=== PATIENT | female | born 1970 | race Two or more races ===

== ENCOUNTER 2016-08-10 05:19 | Inpatient (IN) | payer MEDICAID, OTHER ==
[2016-08-10 06:08] LABS: ABSOLUTE BASOPHILS # (AUTO) 0.1 10^3/uL (0.0-0.2); ABSOLUTE EOSINOPHILS # (AUTO) 0.2 10^3/uL (0.0-0.6); ABSOLUTE LYMPHOCYTES (AUTO) 3.4 10^3/uL (0.5-4.7); ABSOLUTE MONOCYTES (AUTO) 0.6 10^3/uL (0.1-1.4); ABSOLUTE NEUT (AUTO) 9.9 10^3/uL (1.7-8.2); BASOPHILS % (AUTO) 0.7 % (0-2); EOSINOPHILS % (AUTO) 1.1 % (0-6); HEMATOCRIT 35.2 % (36.0-47.0); HEMOGLOBIN 11.3 g/dL (12.0-15.5); HGB HCT DIFFERENCE -1.3; MEAN CORPUSCULAR HEMOGLOBIN 26.2 pg (27.0-33.4); MEAN CORPUSCULAR HGB CONC 32.1 g/dL (32.0-36.0); MEAN CORPUSCULAR VOLUME 82 fl (80-97); MONOCYTES % (AUTO) 4.3 % (3-13); RED BLOOD COUNT 4.32 10^6/uL (3.72-5.28); RED CELL DISTRIBUTION WIDTH 14.8 % (11.5-14.0); SEGMENTED NEUTROPHILS % (AUTO) 69.9 % (42-78); WHITE BLOOD COUNT 14.2 10^3/uL (4.0-10.5)
[2016-08-10] MEDS ORDERED: FUROSEMIDE INJ/PF 40 MG/4 ML SDV IV ONE (06:15)
[2016-08-10] MEDS ORDERED: NITROGLYCERIN/D5W 250 ML IV PRN ×2 (06:15→08:41)
[2016-08-10 06:21] LABS: ALANINE AMINOTRANSFERASE 85 U/L (9-52); ALKALINE PHOSPHATASE 119 U/L (38-126); ANION GAP 12 (5-19); ASPARTATE AMINO TRANSFERASE 78 U/L (14-36); BILIRUBIN,TOTAL 0.8 mg/dL (0.2-1.3); BLOOD UREA NITROGEN 13 mg/dL (7-20); CARBON DIOXIDE 20 mmol/L (22-30); CHLORIDE 101 mmol/L (98-107); CREATINE KINASE 69 U/L (30-135); CREATININE RESULT 0.57 mg/dL (0.52-1.25); GLUCOSE 379 mg/dL (75-110); POTASSIUM 4.1 mmol/L (3.6-5.0); SODIUM 132.6 mmol/L (137-145); TOTAL PROTEIN 6.6 g/dL (6.3-8.2)
[2016-08-10 06:28] LABS: PROTHROMBIN TIME 13.1 SEC (11.4-15.4)
[2016-08-10 06:29] LABS: PARTIAL THROMBOPLASTIN TIME 23.9 SEC (23.5-35.8)
[2016-08-10 06:33] LABS: CREATINE KINASE MB 0.49 ng/mL (<4.55)
[2016-08-10 06:48] LABS: TROPONIN I 0.073 ng/mL
[2016-08-10] MEDS ORDERED: AMLODIPINE BESYLATE 10 MG TABLET PO ONE (07:46)
[2016-08-10 08:02] LABS: APPEARANCE,URINE CLEAR; BILIRUBIN,URINE NEGATIVE (NEGATIVE); KETONES,URINE NEGATIVE (NEGATIVE); LEUKOCYTE ESTERASE,URINE TRACE (NEGATIVE); NITRITE,URINE NEGATIVE (NEGATIVE); PROTEIN,URINE 30 mg/dL (NEGATIVE); UROBILINOGEN,URINE NEGATIVE mg/dL (<2.0)
[2016-08-10 08:03] LABS: GLUCOSE, URINE >=1000 mg/dL (NEGATIVE)
[2016-08-10 08:04] LABS: URINE SPECIFIC GRAVITY 1.017
[2016-08-10] MEDS ORDERED: DEXTROSE 50%-WATER 25 GM/50 ML DISP.SYRIN IV PRN ×2 (08:46)
[2016-08-10] MEDS ORDERED: DEXTROSE 40% GEL 15 GM TUBE PO PRN ×2 (08:46)
[2016-08-10] MEDS ORDERED: GLUCAGON,HUMAN RECOMB 1 MG INJ IM PRN (08:46)
[2016-08-10] MEDS: FAMOTIDINE 20 MG TABLET PO SCH ×2 (09:43→21:15)
[2016-08-10] MEDS: ASPIRIN 81 MG TABLET, ENT COATED PO SCH (09:43)
[2016-08-10] MEDS: LISINOPRIL 10 MG TABLET PO SCH (09:44)
--- NOTE | 2016-08-10 11:09 | EKG REPORT ---
SEVERITY:- ABNORMAL ECG - SINUS TACHYCARDIA PROBABLE LEFT VENTRICULAR HYPERTROPHY BORDERLINE T ABNORMALITIES, INFERIOR LEADS BORDERLINE PROLONGED QT INTERVAL : Confirmed by: Marin Pulido MD 10-Aug-2016 11:07:52
[2016-08-10] MEDS: INSULIN LISPRO 100 UNIT/ML 3 ML VIAL SUBCUT PRN ×3 (12:19→21:16)
[2016-08-10] MEDS ORDERED: INFLUENZA ADLT QUAD (36MOS+) 2016-17 VAC 0.5 ML SYR IM PRN (13:22)
--- NOTE | 2016-08-10 14:46 | PDOC CONSULTATION ---
Consultation Consult Date: 08/10/16 Attending physician:: MAIKOL ZIMMERMAN Consult reason:: Shortness of breath History of Present Illness Admission Date/PCP: 08/10/16 08:41 Patient complains of: Shortness of breath History of Present Illness: PHILLIP DORANTES is a 46 year old female, who presents with several weeks history of increasing shortness of breath, fatigue and tiredness. Patient claims significant history of waking up short of breath, orthopnea and also shortness of breath on minimal exertion. This has gradually gotten worse. Patient describes a history of congestive heart failure. Patient claims that she was being followed at the congestive heart failure clinic advised and but had no follow-up recently. Patient also has been somewhat noncompliant to medication. However she claims that she has now gotten insurance and would be more compliant. Patient denied any sustained palpitations, syncope, near syncope. She has noted some increased abdominal bloating and some pedal edema. Patient gives history of snoring, multiple nocturnal awakening, daytime fatigue and somnolence. Past Medical History Cardiac Medical History: Reports: Congestive Heart Failure, Hypertension, Heart Murmur Endocrine Medical History: Reports: Diabetes Mellitus Type 2 Past Surgical History Past Surgical History: Reports: Cardiac Catheterization Social History Information Source: Patient Smoking Status: Never Smoker Frequency of Alcohol Use: None Hx Recreational Drug Use: No Drugs: None Hx Prescription Drug Abuse: No Family History Family History: Reviewed & Not Pertinent Parental Family History Reviewed: Yes Children Family History Reviewed: Yes Sibling(s) Family History Reviewed.: Yes Medication/Allergy Home Medications: Amlodipine Besylate [Norvasc 10 mg Tablet] 10 mg PO DAILY 08/10/16 Carvedilol [Coreg 12.5 mg Tablet] 12.5 mg PO Q12 08/10/16 Lisinopril [Prinivil] 20 mg PO DAILY 08/10/16 Metformin HCl [Glucophage] 500 mg PO BIDACBS 08/10/16 Sitagliptin Phosphate [Januvia 50 mg Tablet] 100 mg PO DAILY 08/10/16 Allergies/Adverse Reactions: No Known Allergies Allergy (Verified 01/15/15 20:34) Review of Systems Review of Systems: Please see history of present illness and past medical history as wall. Constitutional: No fever or chills reported. Head : No recent chronic headaches, recent head injury. Eyes: No recent eye pain, diplopia, redness, discharge, acute visual changes. Ears: No recent chronic ear pain, acute hearing loss, ear discharge. Oral cavity: No recent ulcerations, bleeding, oral cavity discomfort. Neck: No recent acute neck pain reported. Hematologic: No recent easy bruising or bleeding or hematologic malignancy reported. Lymphatic: No recent lymphatic malignancy, chronic lymphadenopathy reported yet Cardiovascular system review: See history of present illness. No sustained palpitations, recent syncope or near syncope. Respiratory system review: No recent chronic cough, hemoptysis, blood clots in the lungs reported. Mild Shortness of breath on exertion Gastrointestinal system review: Negative for any recent acute or chronic abdominal pain, hematemesis, melena, recent change in bowel habits. Genitourinary system review: No recent acute or chronic hematuria, flank pain, UTI etc. reported. Skin system review: Negative for any recent abnormal bruising, no rash, no pruritus reported. Neurologic: No prior history of strokes, mini strokes, seizure disorder. Psychologic: No history of major psychosis or depression reported. Musculoskeletal: Minor aches and pains reported. No acute joint swelling reported. Endocrine: No recent polyuria, polydipsia, recent heat or cold intolerance. Physical Exam Vital Signs: Temp Pulse Resp BP Pulse Ox 97.8 F 92 16 167/93 H 100 08/10/16 13:17 08/10/16 13:17 08/10/16 13:17 08/10/16 13:17 08/10/16 13:17 Intake & Output 08/09/16 08/10/16 08/11/16 06:59 06:59 06:59 Weight 95.9 kg Exam: GENERAL: well-nourished and in no acute distress. Alert and oriented x3 HEAD: Atraumatic, normocephalic. EYES: Pupils equal round and reactive to light, extraocular movements intact, sclera anicteric, conjunctiva are normal. ENT: TMs normal, nares patent, oropharynx clear without exudates. Moist mucous membranes. No oral ulcerations or bleeding gums noted NECK: supple without lymphadenopathy. Trachea is central. No cervical or axillary lymphadenopathy noted. Carotids are 2+, JVD 12-14 CM LUNGS: Respiration seems nonlabored, no significant accessory muscle action noted. Bibasal a fine crackles and few bibasal wheezes rales or rhonchi noted. No significant dullness noted on percussion. CHEST: Palpation of the chest wall shows no significant chest wall tenderness. No other significant abnormalities noted. HEART: [place] [employer], No PSH, 1/6 SAMARIA aortic area, 1/6 ferrara systolic murmur mitral area, no rubs, no gallops. ABDOMEN: Soft, no significant tenderness appreciated, normoactive bowel sounds. No guarding, no rebound. No rigidity noted . No masses appreciated. EXTREMITIES: Pedal pulses are 1-2+, no calf tenderness noted. No clubbing or cyanosis.1-2 + pedal edema noted NEUROLOGICAL: Focused neurological exam showed no significant neurologic deficit. Normal speech, no focal weakness appreciated. PSYCH: Normal mood, normal affect. Judgment and insight within normal limits. SKIN: No significant ecchymosis, rash, ulcerations or signs of pruritus noted. MUSCULOSKELETAL EXAM: No significant joint swelling noted. Results EKG Comments: Sinus rhythm, with LVH and secondary ST-T wave changes Impressions: Chest X-Ray 08/10/16 05:49 IMPRESSION: Borderline cardiomegaly. No pulmonary vascular congestion. No focal opacities. Assessment & Plan - Diagnosis (1) Congestive heart failure Qualifiers: Congestive heart failure type: combined Congestive heart failure chronicity: acute on chronic Qualified Code(s): I50.43 - Acute on chronic combined systolic (congestive) and diastolic (congestive) heart failure Is this a current diagnosis for this admission?: Yes (2) Cardiomyopathy Qualifiers: Cardiomyopathy type: unspecified Qualified Code(s): I42.9 - Cardiomyopathy, unspecified Is this a current diagnosis for this admission?: Yes (3) Diabetes type 2, uncontrolled Qualifiers: Diabetes mellitus complication status: with unspecified complications 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 Patient also noted to be volume overloaded. Agree with IV diuretic therapy. Recommend adding carvedilol and gradually optimizing VI inhibitor dose. We will also recommend adding digoxin. Cardiomyopathy: We will optimize therapy for underlying cardiomyopathy. A 2-D echo being ordered. Diabetes: Currently uncontrolled. Glycohemoglobin is high. Recommend good control of blood sugar but avoid hypoglycemia. Hypertension:Hypertension: Reasonably well controlled. Blood pressure goal in this patient is 130/80 or less. This was discussed with the patient. Currently blood pressure under reasonable control. Better medication for this patient are VI inhibitor/ARB/beta tri etc. discussed side effects of uncontrolled hypertension and also severe hypotension. Sleep disordered breathing: Patient may have underlying sleep apnea. This may need to be evaluated as an outpatient. - Time Time Spent: 30 to 50 Minutes - CODE STATUS was discussed, patient remains full code. Surrogate decision-maker unchanged. Multiple medical problems were addressed.More than 50% of the time spent coordinating care, discussing management plans with involved caregivers. Management plans discussed with involved personnels. Medical decision making was of moderate complexity. Medications reviewed and adjusted accordingly: Yes
[2016-08-10] MEDS: FUROSEMIDE INJ/PF 40 MG/4 ML SDV IV SCH ×2 (14:51→21:16)
[2016-08-10] MEDS: HEPARIN SOD (PORCINE) 5,000 UNIT/ML 1 ML SYRINGE SUBCUT SCH ×2 (14:53→21:16)
--- NOTE | 2016-08-10 14:53 | ER Document Report ---
ED General - General Chief Complaint: Breathing Difficulty Stated Complaint: DIFFICULTY BREATHING TRAVEL OUTSIDE OF THE [place] IN LAST 30 DAYS: No - HPI Patient complains to provider of: difficulty in breathing Notes: Patient has a history of CHF, hypertension with multiple dilated defects diabetes hypertension coming in for shortness of breath. Patient states also insurance probably 2 months ago. Patient that she has not been consistent upon arrival patient was severely tachycardic hypertensive and tachypnea. Upon evaluation patient patient had approximately 5 word dyspnea. Patient denies any pain. Patient states proximal 8 pound weight gain over the last few days. No recent travel no fevers no chills no nausea no vomiting. - Related Data Allergies/Adverse Reactions: No Known Allergies Allergy (Verified 01/15/15 20:34) Home Medications: Current Home Medications Amlodipine Besylate [Norvasc 10 mg Tablet] 10 mg PO DAILY 08/10/16 [History] Carvedilol [Coreg 12.5 mg Tablet] 12.5 mg PO Q12 08/10/16 [History] Lisinopril [Prinivil] 20 mg PO DAILY 08/10/16 [History] Metformin HCl [Glucophage] 500 mg PO BIDACBS 08/10/16 [History] Sitagliptin Phosphate [Januvia 50 mg Tablet] 100 mg PO DAILY 08/10/16 [History] Past Medical History - Social History Smoking Status: Never Smoker Chew tobacco use (# tins/day): No Frequency of alcohol use: None Drug Abuse: None Family History: Reviewed & Not Pertinent Patient has suicidal ideation: No Patient has homicidal ideation: No - Past Medical History Cardiac Medical History: Reports: Hx Congestive Heart Failure, Hx Hypertension, Hx Heart Murmur Endocrine Medical History: Reports: Hx Diabetes Mellitus Type 2 Renal/ Medical History: Denies: Hx Peritoneal Dialysis Past Surgical History: Reports: Hx Cardiac Catheterization - Immunizations Hx Diphtheria, Pertussis, Tetanus Vaccination: Yes Review of Systems - Review of Systems Constitutional: No symptoms reported EENT: No symptoms reported Cardiovascular: No symptoms reported Respiratory: Short of breath Gastrointestinal: No symptoms reported Genitourinary: No symptoms reported Female Genitourinary: No symptoms reported Musculoskeletal: No symptoms reported Skin: No symptoms reported Hematologic/Lymphatic: No symptoms reported Neurological/Psychological: No symptoms reported -: Yes All other systems reviewed and negative Physical Exam - Vital signs Vitals: Temp Pulse Resp BP Pulse Ox 97.4 F 124 H 28 H 220/140 H 98 08/10/16 05:32 08/10/16 05:32 08/10/16 05:32 08/10/16 05:32 08/10/16 05:32 Interpretation: Normal - General General appearance: Alert, Other - Mild to moderate distress In distress: Mild - HEENT Head: Normocephalic, Atraumatic Eyes: Normal Pupils: PERRL - Respiratory Respiratory status: Respiratory distress - [id number], Tachypnea Chest status: Nontender Breath sounds: Rales Chest palpation: Normal - Cardiovascular Rhythm: Tachycardia Heart sounds: Normal auscultation Murmur: No - Abdominal Inspection: Normal Distension: No distension Bowel sounds: Normal Tenderness: Nontender Organomegaly: No organomegaly - Back Back: Normal, Nontender - Extremities General upper extremity: Normal inspection, Nontender, Normal color, Normal ROM , Normal temperature General lower extremity: Normal inspection, Nontender, Normal color, Normal ROM , Normal temperature, Normal weight bearing. No: Bernard's sign - Neurological Neuro grossly intact: Yes Cognition: Normal Orientation: AAOx4 [place] Coma Scale Eye Opening: Spontaneous [place] Coma Scale Verbal: Oriented [place] Coma Scale Motor: Obeys Commands [place] Coma Scale Total: 15 Speech: Normal Motor strength normal: LUE, RUE, LLE, RLE Sensory: Normal - Psychological Associated symptoms: Normal affect, Normal mood - Skin Skin Temperature: Warm Skin Moisture: Dry Skin Color: Normal Course - Re-evaluation Re-evalutation: 08/10/16 14:51 Patient presents with soreness of breath. Initial examinations consistent with CHF fluid overload. Patient was transitioned to BiPAP nitro drip given Lasix given. Patient's symptoms improved. Patient was able to be titrated off of BiPAP. Patient continued. Patient's case was turned over to the hospital for further management - Vital Signs Vital signs: Temp Pulse Resp BP Pulse Ox 97.8 F 93 16 167/93 H 100 08/10/16 13:17 08/10/16 14:00 08/10/16 13:17 08/10/16 13:17 08/10/16 13:17 - Laboratory Result Diagrams: 08/10/16 05:53 08/10/16 05:53 Laboratory results interpreted by me: 08/10/16 08/10/16 08/10/16 05:53 05:53 05:53 WBC 14.2 H Hgb 11.3 L Hct 35.2 L MCH 26.2 L RDW 14.8 H Absolute Neutrophils 9.9 H Sodium 132.6 L Carbon Dioxide 20 L Glucose 379 H Hemoglobin A1c % AST 78 H ALT 85 H NT-Pro-B Natriuret Pep 6310 H Albumin 3.0 L Urine Protein Urine Glucose (UA) Ur Leukocyte Esterase 08/10/16 08/10/16 05:53 06:47 WBC Hgb Hct MCH RDW Absolute Neutrophils Sodium Carbon Dioxide Glucose Hemoglobin A1c % 11.3 H AST ALT NT-Pro-B Natriuret Pep Albumin Urine Protein 30 H Urine Glucose (UA) >=1000 H Ur Leukocyte Esterase TRACE H Critical Care Note - Critical Care Note Total time excluding time spent on procedures (mins): 35 Comments: Multiple evaluations patient with respiratory distress crying BiPAP hypertensive emergency urgency Discharge - Discharge Clinical Impression: Hypertensive urgency, Respiratory distress Cardiomyopathy Qualifiers: Cardiomyopathy type: unspecified Qualified Code(s): I42.9 - Cardiomyopathy, unspecified Congestive heart failure Qualifiers: Congestive heart failure type: combined Congestive heart failure chronicity: acute on chronic Qualified Code(s): I50.43 - Acute on chronic combined systolic (congestive) and diastolic (congestive) heart failure Diabetes type 2, uncontrolled Qualifiers: Diabetes mellitus complication status: with unspecified complications 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
[2016-08-10] MEDS ORDERED: DIGOXIN 0.125 MG TABLET PO ONE (15:15)
[2016-08-10] MEDS ORDERED: HYDRALAZINE HCL INJ/PF 20 MG/1 ML SDV IV PRN (16:49)
--- NOTE | 2016-08-10 16:49 | PDOC H&P ---
History of Present Illness Admission Date/PCP: 08/10/16 08:41 Not Established Patient complains of: Dyspnea History of Present Illness: Patient has a history of CHF, hypertension with multiple dilated defects diabetes hypertension coming in for shortness of breath. Patient states also insurance probably 2 months ago. Patient that she has not been consistent upon arrival patient was severely tachycardic hypertensive and tachypnea. Upon evaluation patient patient had approximately 5 word dyspnea. Patient denies any pain. Patient states proximal 8 pound weight gain over the last few days. No recent travel no fevers no chills no nausea no vomiting. The patient has been seen in the past by [facility]. The patient was found to be in hypertensive emergency and started on nitro drip. Patient was referred to the hospitalist remission and management. Past Medical History Cardiac Medical History: Reports: Congestive Heart Failure, Hypertension, Heart Murmur Endocrine Medical History: Reports: Diabetes Mellitus Type 2 Past Surgical History Past Surgical History: Reports: Cardiac Catheterization Social History Information Source: Patient Occupation: Is employed full-time at [employer]. Lives with: Family Smoking Status: Never Smoker Frequency of Alcohol Use: None Hx Recreational Drug Use: No Drugs: None Hx Prescription Drug Abuse: No - Advance Directive Resuscitation Status: Full Code Surrogate healthcare decision maker:: Ten her son Family History Family History: Reviewed & Not Pertinent. denies: CAD Parental Family History Reviewed: Yes Children Family History Reviewed: Yes Sibling(s) Family History Reviewed.: Yes Medication/Allergy Home Medications: Amlodipine Besylate [Norvasc 10 mg Tablet] 10 mg PO DAILY 08/10/16 Carvedilol [Coreg 12.5 mg Tablet] 12.5 mg PO Q12 08/10/16 Lisinopril [Prinivil] 20 mg PO DAILY 08/10/16 Metformin HCl [Glucophage] 500 mg PO BIDACBS 08/10/16 Sitagliptin Phosphate [Januvia 50 mg Tablet] 100 mg PO DAILY 08/10/16 Allergies/Adverse Reactions: No Known Allergies Allergy (Verified 01/15/15 20:34) Review of Systems Constitutional: PRESENT: weight gain. ABSENT: chills, fever(s), headache(s), weight loss Eyes: ABSENT: visual disturbances Ears: ABSENT: hearing changes Cardiovascular: PRESENT: dyspnea on exertion, edema, orthropnea. ABSENT: chest pain, palpitations Respiratory: ABSENT: cough, hemoptysis Gastrointestinal: ABSENT: abdominal pain, constipation, diarrhea, hematemesis, hematochezia, nausea, vomiting Genitourinary: ABSENT: dysuria, hematuria Musculoskeletal: ABSENT: joint swelling Integumentary: ABSENT: rash, wounds Neurological: ABSENT: abnormal gait, abnormal speech, confusion, dizziness, focal weakness, syncope Psychiatric: ABSENT: anxiety, depression, homidical ideation, suicidal ideation Endocrine: ABSENT: cold intolerance, heat intolerance, polydipsia, polyuria Hematologic/Lymphatic: ABSENT: easy bleeding, easy bruising Physical Exam Vital Signs: Temp Pulse Resp BP Pulse Ox 97.8 F 90 16 163/89 H 100 08/10/16 13:17 08/10/16 15:30 08/10/16 13:17 08/10/16 15:30 08/10/16 13:17 Intake & Output 08/08/16 08/09/16 08/10/16 23:59 23:59 23:59 Weight 95.9 kg General appearance: PRESENT: no acute distress, cooperative, well-developed, well-nourished Head exam: PRESENT: atraumatic, normocephalic Eye exam: PRESENT: conjunctiva pink, EOMI, PERRLA. ABSENT: scleral icterus Ear exam: PRESENT: normal external ear exam Mouth exam: PRESENT: moist, tongue midline Neck exam: ABSENT: carotid bruit, JVD, lymphadenopathy, thyromegaly Respiratory exam: PRESENT: crackles, symmetrical. ABSENT: rales, rhonchi, tachypnea, unlabored, wheezes Cardiovascular exam: PRESENT: diastolic murmur, RRR, systolic murmur. ABSENT: rubs Pulses: PRESENT: normal dorsalis pedis pul Vascular exam: PRESENT: normal capillary refill GI/Abdominal exam: PRESENT: normal bowel sounds, soft. ABSENT: distended, guarding, mass, organolmegaly, rebound, tenderness Rectal exam: PRESENT: deferred Extremities exam: PRESENT: full ROM, pedal edema. ABSENT: calf tenderness, clubbing Neurological exam: PRESENT: alert, awake, oriented to person, oriented to place , oriented to time, oriented to situation, CN II-XII grossly intact. ABSENT: motor sensory deficit Psychiatric exam: PRESENT: appropriate affect, normal mood. ABSENT: homicidal ideation, suicidal ideation Skin exam: PRESENT: dry, intact, warm. ABSENT: cyanosis, rash Results Laboratory Results: Labs- Last Values WBC 14.2 10^3/uL (4.0-10.5) H 08/10/16 05:53 RBC 4.32 10^6/uL (3.72-5.28) 08/10/16 05:53 Hgb 11.3 g/dL (12.0-15.5) L 08/10/16 05:53 Hct 35.2 % (36.0-47.0) L 08/10/16 05:53 MCV 82 fl (80-97) 08/10/16 05:53 MCH 26.2 pg (27.0-33.4) L 08/10/16 05:53 MCHC 32.1 g/dL (32.0-36.0) 08/10/16 05:53 RDW 14.8 % (11.5-14.0) H 08/10/16 05:53 Plt Count 334 10^3/uL (150-450) 08/10/16 05:53 Seg Neutrophils % 69.9 % (42-78) 08/10/16 05:53 Lymphocytes % 24.0 % (13-45) 08/10/16 05:53 Monocytes % 4.3 % (3-13) 08/10/16 05:53 Eosinophils % 1.1 % (0-6) 08/10/16 05:53 Basophils % 0.7 % (0-2) 08/10/16 05:53 Absolute Neutrophils 9.9 10^3/uL (1.7-8.2) H 08/10/16 05:53 Absolute Lymphocytes 3.4 10^3/uL (0.5-4.7) 08/10/16 05:53 Absolute Monocytes 0.6 10^3/uL (0.1-1.4) 08/10/16 05:53 Absolute Eosinophils 0.2 10^3/uL (0.0-0.6) 08/10/16 05:53 Absolute Basophils 0.1 10^3/uL (0.0-0.2) 08/10/16 05:53 PT 13.1 SEC (11.4-15.4) 08/10/16 05:53 INR 0.96 08/10/16 05:53 APTT 23.9 SEC (23.5-35.8) 08/10/16 05:53 Sodium 132.6 mmol/L (137-145) L 08/10/16 05:53 Potassium 4.1 mmol/L (3.6-5.0) 08/10/16 05:53 Chloride 101 mmol/L (98-107) 08/10/16 05:53 Carbon Dioxide 20 mmol/L (22-30) L 08/10/16 05:53 Anion Gap 12 (5-19) 08/10/16 05:53 BUN 13 mg/dL (7-20) 08/10/16 05:53 Creatinine 0.57 mg/dL (0.52-1.25) 08/10/16 05:53 Est GFR ( Amer) > 60 (>60) 08/10/16 05:53 Est GFR (Non-Af Amer) > 60 (>60) 08/10/16 05:53 Glucose 379 mg/dL (75-110) H 08/10/16 05:53 POC Glucose 184 mg/dL (70-110) H 08/10/16 16:15 Hemoglobin A1c % 11.3 % (4.7-6.0) H 08/10/16 05:53 Calcium 9.0 mg/dL (8.4-10.2) 08/10/16 05:53 Magnesium 1.6 mg/dL (1.6-2.3) 08/10/16 05:53 Total Bilirubin 0.8 mg/dL (0.2-1.3) 08/10/16 05:53 Direct Bilirubin 0.0 mg/dL (0.0-0.3) 08/10/16 05:53 AST 78 U/L (14-36) H 08/10/16 05:53 ALT 85 U/L (9-52) H 08/10/16 05:53 Alkaline Phosphatase 119 U/L (38-126) 08/10/16 05:53 Creatine Kinase 69 U/L (30-135) 08/10/16 05:53 CK-MB (CK-2) 0.49 ng/mL (<4.55) 08/10/16 05:53 Troponin I 0.073 ng/mL 08/10/16 05:53 NT-Pro-B Natriuret Pep 6310 pg/mL (<125) H 08/10/16 05:53 Total Protein 6.6 g/dL (6.3-8.2) 08/10/16 05:53 Albumin 3.0 g/dL (3.5-5.0) L 08/10/16 05:53 Serum HCG, Qual NEGATIVE (NEGATIVE) 08/10/16 05:53 Urine Color STRAW 08/10/16 06:47 Urine Appearance CLEAR 08/10/16 06:47 Urine pH 6.0 (5.0-9.0) 08/10/16 06:47 Ur Specific [place] 1.017 08/10/16 06:47 Urine Protein 30 mg/dL (NEGATIVE) H 08/10/16 06:47 Urine Glucose (UA) >=1000 mg/dL (NEGATIVE) H 08/10/16 06:47 Urine Ketones NEGATIVE mg/dL (NEGATIVE) 08/10/16 06:47 Urine Blood NEGATIVE (NEGATIVE) 08/10/16 06:47 Urine Nitrite NEGATIVE (NEGATIVE) 08/10/16 06:47 Urine Bilirubin NEGATIVE (NEGATIVE) 08/10/16 06:47 Urine Urobilinogen NEGATIVE mg/dL (<2.0) 08/10/16 06:47 Ur Leukocyte Esterase TRACE (NEGATIVE) H 08/10/16 06:47 Urine WBC (Auto) 1 /HPF 08/10/16 06:47 Urine RBC (Auto) 0 /HPF 08/10/16 06:47 Urine Bacteria (Auto) TRACE /HPF 08/10/16 06:47 Squamous Epi Cells Auto 2 /HPF 08/10/16 06:47 Urine Mucus (Auto) RARE /LPF 08/10/16 06:47 Urine Ascorbic Acid NEGATIVE (NEGATIVE) 08/10/16 06:47 Influenza A (Rapid) NEGATIVE (NEGATIVE) 08/10/16 07:47 Influenza B (Rapid) NEGATIVE (NEGATIVE) 08/10/16 07:47 Impressions: Chest X-Ray 08/10/16 05:49 IMPRESSION: Borderline cardiomegaly. No pulmonary vascular congestion. No focal opacities. Assessment & Plan - Diagnosis (1) Cardiomyopathy Qualifiers: Cardiomyopathy type: unspecified Qualified Code(s): I42.9 - Cardiomyopathy, unspecified Is this a current diagnosis for this admission?: YesPlan: The patient be seen by cardiology. Will obtain attainment previous echocardiogram from vitamin. Will obtain current echo. (2) Congestive heart failure Qualifiers: Congestive heart failure type: combined Congestive heart failure chronicity: acute on chronic Qualified Code(s): I50.43 - Acute on chronic combined systolic (congestive) and diastolic (congestive) heart failure Is this a current diagnosis for this admission?: YesPlan: Diurese the patient. Will repeat chemistries in the a.m. Do appreciate cardiology input. 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 (4) Hypertension Qualifiers: Hypertension type: essential hypertension Qualified Code(s): I10 - Essential (primary) hypertension Is this a current diagnosis for this admission?: Yes (5) Hypertensive urgency Is this a current diagnosis for this admission?: YesPlan: Will titrate nitro drip will resume home blood pressure medications and follow. Do appreciate cardiology input. (6) Sleep disorder breathing Is this a current diagnosis for this admission?: Yes (7) Acute on chronic respiratory failure with hypoxemia Is this a current diagnosis for this admission?: YesPlan: Secondary to volume overload. Will continue supplemental O2. - Time Time Spent: 50 to 70 Minutes Medications reviewed and adjusted accordingly: Yes
--- NOTE | 2016-08-10 17:46 | EKG REPORT ---
SEVERITY:- ABNORMAL ECG - SINUS RHYTHM LEFT VENTRICULAR HYPERTROPHY BORDERLINE T ABNORMALITIES, INFERIOR LEADS : Confirmed by: Marin Pulido MD 10-Aug-2016 17:44:57
--- NOTE | 2016-08-10 18:56 | XCELERA REPORT ---
[address] [address] Transthoracic Echocardiogram Report Name: PHILLIP DORANTES Age: 46 yrs Gender: Female : 1970 Patient Status: Inpatient Patient Location: [id number]\S\313\S\A Study Date: 08/10/2016 03:21 PM Height: 62 in Weight: 211 lb BSA: 2.0 m2 Procedure: A complete two-dimensional transthoracic echocardiogram was performed (2D, M-mode, spectral and color flow Doppler). The study was technically adequate with some images being suboptimal in quality. Reason For Study: Cardiomyopathy Ordering Physician: MAIKOL ZIMMERMAN Performed By: oDmi Montgomery Interpretation Summary The Ejection Fraction estimate is 35-40% Left ventricular systolic function is moderately reduced. Doppler measurements suggest pseudonormalized left ventricular relaxation, which is associated with grade II/IV or mild to moderate diastolic dysfunction There is moderate concentric left ventricular hypertrophy. The left ventricle is normal in size. There is moderate global hypokinesis of the left ventricle. The right ventricular systolic function is normal. The right atrium is mildly dilated. The left atrium is moderately dilated. There is no mitral valve stenosis. There is a moderate to severe amount of mitral regurgitation There is no aortic valve stenosis There is a mild amount of aortic regurgitation There is a mild amount of tricuspid regurgitation There is mild to moderate pulmonary hypertension by echo Right ventricular systolic pressure is estimated to be elevated at 40- 50mmHg. The aortic root is not well visualized but is probably normal size. The inferior vena cava appeared normal and decreased < 50% with respiration (RAP 10-15 mmHg) There is no pericardial effusion. MMode/2D Measurements \T\ Calculations RVDd: 3.4 cm LVIDd: 5.1 cm FS: 18.6 % Ao root diam: IVSd: 1.3 cm LVIDs: 4.1 cm EDV(Teich): 2.8 cm LVPWd: 1.3 cm 121.6 ml Ao root area: ESV(Teich): 75.0 ml 6.0 cm2 EF(Teich): 38.3 % LA dimension: 4.7 cm LVLd ap4: 8.8 cm SV(MOD-sp4): EDV(MOD-sp4): 47.0 ml 124.0 ml LVLs ap4: 7.8 cm ESV(MOD-sp4): 77.0 ml EF(MOD-sp4): 37.9 % Doppler Measurements \T\ Calculations MV E max christo: MV P1/2t max christo: Ao V2 max: AI max christo: 148.1 cm/sec 147.5 cm/sec 152.6 cm/sec 490.0 cm/sec MV A max christo: MV P1/2t: 71.5 msec Ao max PG: AI max P.2 cm/sec MVA(P1/2t): 3.1 cm2 9.3 mmHg 96.0 mmHg MV E/A: 1.5 MV dec slope: AI dec slope: 604.4 cm/sec2 461.6 cm/sec2 MV dec time: AI P1/2t: 0.24 sec 310.9 msec LV V1 max PG: PA V2 max: PI end-d christo: TR max christo: 2.0 mmHg 79.0 cm/sec 193.3 cm/sec 306.8 cm/sec LV V1 max: PA max P.5 mmHg TR max P.2 cm/sec 37.6 mmHg Left Ventricle The left ventricle is normal in size. There is moderate concentric left ventricular hypertrophy. Left ventricular systolic function is moderately reduced. The Ejection Fraction estimate is 35-40%. Doppler measurements suggest pseudonormalized left ventricular relaxation, which is associated with grade II/IV or mild to moderate diastolic dysfunction. There is moderate global hypokinesis of the left ventricle. Right Ventricle The right ventricle is grossly normal size. The right ventricle appears to be hypertrophied. The right ventricular systolic function is normal. Atria The right atrium is mildly dilated. The left atrium is moderately dilated. Interarterial septum not well visualized and not well dopplered. Cannot comment on ASD/PFO presence. Mitral Valve The mitral valve leaflets are sclerotic and show some degree of functional abnormality. There is no mitral valve stenosis. There is a moderate to severe amount of mitral regurgitation. Aortic Valve The aortic valve is grossly normal. There is no aortic valve stenosis. There is a mild amount of aortic regurgitation. Tricuspid Valve The tricuspid valve is not well visualized, but is grossly normal. There is no tricuspid stenosis. There is a mild amount of tricuspid regurgitation. There is mild to moderate pulmonary hypertension by echo. Right ventricular systolic pressure is estimated to be elevated at 40-50mmHg. Pulmonic Valve The pulmonic valve is not well visualized. Great Vessels The aortic root is not well visualized but is probably normal size. The inferior vena cava appeared normal and decreased < 50% with respiration (RAP 10-15 mmHg). Effusions There is no pericardial effusion. : MAIKOL ZIMMERMAN > Virgil Webb
[2016-08-10] MEDS: CARVEDILOL 3.125 MG TABLET PO SCH (21:16)
[2016-08-11 05:23] LABS: BLOOD UREA NITROGEN 15 mg/dL (7-20); CALCIUM 9.5 mg/dL (8.4-10.2); CHLORIDE 96 mmol/L (98-107); CHOLESTEROL 233.33 mg/dL (0-200); CREATININE RESULT 0.76 mg/dL (0.52-1.25); Direct HDL 51 mg/dL (>40); GLUCOSE 218 mg/dL (75-110); MAGNESIUM 1.6 mg/dL (1.6-2.3); POTASSIUM 3.6 mmol/L (3.6-5.0); SODIUM 136.2 mmol/L (137-145); TRIGLYCERIDES 241 mg/dL (<150)
[2016-08-11 05:33] LABS: DIRECT LDL 162 mg/dL (<100)
[2016-08-11 05:43] LABS: VLDL CHOLESTEROL 48.2 mg/dL (10-31)
[2016-08-11 05:52] LABS: ANION GAP 11 (5-19)
[2016-08-11 06:02] LABS: CARBON DIOXIDE 29 mmol/L (22-30)
[2016-08-11] MEDS: FUROSEMIDE INJ/PF 40 MG/4 ML SDV IV SCH ×2 (06:17→15:04)
[2016-08-11] MEDS: HEPARIN SOD (PORCINE) 5,000 UNIT/ML 1 ML SYRINGE SUBCUT SCH ×3 (06:18→22:49)
[2016-08-11] MEDS: INSULIN LISPRO 100 UNIT/ML 3 ML VIAL SUBCUT PRN ×3 (07:29→22:49)
--- NOTE | 2016-08-11 08:29 | EKG REPORT ---
SEVERITY:- ABNORMAL ECG - SINUS RHYTHM LEFT VENTRICULAR HYPERTROPHY BORDERLINE T ABNORMALITIES, INFERIOR LEADS : Confirmed by: Virgil Webb 11-Aug-2016 08:28:34
[2016-08-11] MEDS: DIGOXIN 0.125 MG TABLET PO SCH (09:44)
[2016-08-11] MEDS: FAMOTIDINE 20 MG TABLET PO SCH ×2 (09:45→22:41)
[2016-08-11] MEDS: ASPIRIN 81 MG TABLET, ENT COATED PO SCH (09:45)
[2016-08-11] MEDS: CARVEDILOL 3.125 MG TABLET PO SCH ×2 (09:45→22:41)
[2016-08-11] MEDS: LISINOPRIL 10 MG TABLET PO SCH (09:45)
[2016-08-11] MEDS ORDERED: POTASSIUM CHLORIDE 10 MEQ TABLET.SA PO ONE (10:00)
--- NOTE | 2016-08-11 10:55 | PDOC PROGRESS REPORT ---
Subjective Progress Note for:: 08/11/16 Subjective:: The patient was seen earlier today on rounds. The patient still admits to dyspnea with activity but overall is much improved in comparison to yesterday. The patient denies any nausea, vomiting, diarrhea, dizziness, chest pain, heart palpitations, fevers, or chills. The patient has remained afebrile. Blood pressures have been in a good range. When prompted the patient voices no other concerns at this time. Review of systems: The rest of the review of systems is negative. Brief history: Jules is an unfortunate 46-year-old female with a past medical history of most likely hypertensive cardiomyopathy and diabetes mellitus. The patient has been seen by [facility] heart failure team. The patient has fortunately been able to recover some EF estimates now at 35-40%. However over the past few months the patient has lost her insurance due to employment and has not been able to afford any of her medications. The patient presented to the emergency department in significant respiratory distress and volume overload. The patient was aggressively diuresed and received her to the hospitalist remission and management. The patient has been seen and evaluated by Dr. Webb with cardiology. She has had an excellent response thus far and may be suitable for discharge in the next 24 hours. Physical Exam Vital Signs: Temp Pulse Resp BP Pulse Ox 98.7 F 92 12 152/88 H 99 08/11/16 08:00 08/11/16 08:00 08/11/16 08:00 08/11/16 08:00 08/11/16 08:00 Intake & Output 08/09/16 08/10/16 08/11/16 23:59 23:59 23:59 Intake Total 528 1200 Output Total 1150 Balance 528 50 Weight 95.9 kg 92.3 kg General appearance: PRESENT: no acute distress, cooperative, well-developed, well-nourished Head exam: PRESENT: atraumatic, normocephalic Eye exam: PRESENT: conjunctiva pink, EOMI, PERRLA. ABSENT: scleral icterus Ear exam: PRESENT: normal external ear exam Mouth exam: PRESENT: moist, tongue midline Neck exam: ABSENT: carotid bruit, JVD appears to be to the level of the right clavicle, lymphadenopathy, thyromegaly Respiratory exam: PRESENT: crackles, symmetrical. ABSENT: rales, rhonchi, tachypnea, unlabored, wheezes Cardiovascular exam: PRESENT: diastolic murmur, RRR, systolic murmur. ABSENT: rubs Pulses: PRESENT: normal dorsalis pedis pul Vascular exam: PRESENT: normal capillary refill GI/Abdominal exam: PRESENT: normal bowel sounds, soft. ABSENT: distended, guarding, mass, organolmegaly, rebound, tenderness Rectal exam: PRESENT: deferred Extremities exam: PRESENT: full ROM, pedal edema has improved. ABSENT: calf tenderness, clubbing Neurological exam: PRESENT: alert, awake, oriented to person, oriented to place , oriented to time, oriented to situation, CN II-XII grossly intact. ABSENT: motor sensory deficit Psychiatric exam: PRESENT: appropriate affect, normal mood. ABSENT: homicidal ideation, suicidal ideation Skin exam: PRESENT: dry, intact, warm. ABSENT: cyanosis, rash Results Laboratory Results: 08/11/16 04:10 08/11/16 04:10 Sodium 136.2 L Potassium 3.6 Chloride 96 L Carbon Dioxide 29 Anion Gap 11 BUN 15 Creatinine 0.76 Est GFR ( Amer) > 60 Est GFR (Non-Af Amer) > 60 Glucose 218 H Calcium 9.5 Magnesium 1.6 Triglycerides 241 H Cholesterol 233.33 H LDL Cholesterol Direct 162 H VLDL Cholesterol 48.2 H HDL Cholesterol 51 Impressions: Chest X-Ray 08/10/16 05:49 IMPRESSION: Borderline cardiomegaly. No pulmonary vascular congestion. No focal opacities. Assessment & Plan - Diagnosis (1) Cardiomyopathy Qualifiers: Cardiomyopathy type: unspecified Qualified Code(s): I42.9 - Cardiomyopathy, unspecified Is this a current diagnosis for this admission?: YesPlan: The patient be seen by cardiology. The patient's EF appears to be between 35 and 40% with significant valvular disease. (2) Congestive heart failure Qualifiers: Congestive heart failure type: combined Congestive heart failure chronicity: acute on chronic Qualified Code(s): I50.43 - Acute on chronic combined systolic (congestive) and diastolic (congestive) heart failure Is this a current diagnosis for this admission?: YesPlan: Diurese the patient. NT current medications. Do appreciate cardiology input. Will give a dose of potassium. (3) Acute on chronic respiratory failure with hypoxemia Is this a current diagnosis for this admission?: YesPlan: Secondary to volume overload. No longer requiring supplemental O2. (4) Diabetes type 2, uncontrolled Qualifiers: Diabetes mellitus complication status: with unspecified complications Diabetes mellitus chcf insulin use: unspecified chcf insulin use status Qualified Code(s): E11.8 - Type 2 diabetes mellitus with unspecified complications; E11.65 - Type 2 diabetes mellitus with hyperglycemia ; Z79.4 - tip bander (current) use of insulin Is this a current diagnosis for this admission?: YesPlan: Will add metformin given the patient's normal kidney function. Will continue sliding scale coverage for now. (5) Hypertension Qualifiers: Hypertension type: essential hypertension Qualified Code(s): I10 - Essential (primary) hypertension Is this a current diagnosis for this admission?: YesPlan: Blood pressures overall are much improved. Will start the patient on hydralazine since they still are elevated. 08/10/16 10:00 Lisinopril [Prinivil 10 mg Tablet] 40 mg PO DAILY 08/10/16 22:00 Carvedilol [Coreg 3.125 mg Tablet] 3.125 mg PO Q12 08/11/16 14:00 Hydralazine HCl [Apresoline 50 mg Tablet] 50 mg PO Q8 (6) Hypertensive urgency Is this a current diagnosis for this admission?: YesPlan: The patient is off the nitro drip. (7) Sleep disorder breathing Is this a current diagnosis for this admission?: Yes - Time Time Spent with patient: 25-34 minutes Medications reviewed and adjusted accordingly: Yes Anticipated discharge: Home Within: within 24 hours, within 48 hours Disposition: The patient is a full code. Pending patient's symptomatology and diagnostic findings will reevaluate in the a.m.
[2016-08-11] MEDS ORDERED: METFORMIN HCL 500 MG TABLET PO ONE (12:00)
[2016-08-11] MEDS: HYDRALAZINE HCL 50 MG TABLET PO SCH ×2 (15:03→22:41)
[2016-08-11] MEDS: METFORMIN HCL 500 MG TABLET PO SCH (16:29)
--- NOTE | 2016-08-11 19:01 | PDOC PROGRESS REPORT ---
Subjective Progress Note for:: 08/11/16 Subjective:: Patient seems to be doing better with gradual improvement. Pt is denying any chest arm or neck discomfort. Patient denying any PND, orthopnea. Patient denied any sustained palpitations, dizziness, syncope, near syncope. Patient denying any fever chills. Patient denying any other significant discomfort. Patient is maintaining sinus rhythm with less tachycardia. Review of systems: Rest review of systems negative. Medications: Medications have been reviewed. Physical Exam Vital Signs: Temp Pulse Resp BP Pulse Ox 98.7 F 99 13 131/88 H 100 08/11/16 16:05 08/11/16 16:05 08/11/16 16:05 08/11/16 16:05 08/11/16 16:05 Intake & Output 08/10/16 08/11/16 08/12/16 06:59 06:59 06:59 Intake Total 1728 733 Output Total 1150 Balance 578 733 Weight 92.3 kg Exam: GENERAL: well-nourished and in no acute distress. Alert and oriented x3 HEAD: Atraumatic, normocephalic. EYES: Pupils equal round and reactive to light, extraocular movements intact, sclera anicteric, conjunctiva are normal. ENT: TMs normal, nares patent, oropharynx clear without exudates. Moist mucous membranes. No oral ulcerations or bleeding gums noted NECK: supple without lymphadenopathy. Trachea is central. No cervical or axillary lymphadenopathy noted. Carotids are 2+, JVD WNL LUNGS: Respiration seems nonlabored, no significant accessory muscle action noted. Breath sounds clear to auscultation bilaterally and equal noted. No wheezes rales or rhonchi noted. No significant dullness noted on percussion. Significantly improved lung exam today. CHEST: Palpation of the chest wall shows no significant chest wall tenderness. No other significant abnormalities noted. 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 ABDOMEN: Soft, no significant tenderness appreciated, normoactive bowel sounds. No guarding, no rebound. No rigidity noted . No masses appreciated. EXTREMITIES: Pedal pulses are 1-2+, no calf tenderness noted. No clubbing or cyanosis.trace to 1+ pedal edema noted NEUROLOGICAL: Focused neurological exam showed no significant neurologic deficit. Normal speech, no focal weakness appreciated. PSYCH: Normal mood, normal affect. Judgment and insight within normal limits. SKIN: No significant ecchymosis, rash, ulcerations or signs of pruritus noted. MUSCULOSKELETAL EXAM: No significant joint swelling noted. Results Laboratory Results: 08/11/16 04:10 08/11/16 04:10 Sodium 136.2 L Potassium 3.6 Chloride 96 L Carbon Dioxide 29 Anion Gap 11 BUN 15 Creatinine 0.76 Est GFR ( Amer) > 60 Est GFR (Non-Af Amer) > 60 Glucose 218 H Calcium 9.5 Magnesium 1.6 Triglycerides 241 H Cholesterol 233.33 H LDL Cholesterol Direct 162 H VLDL Cholesterol 48.2 H HDL Cholesterol 51 Impressions: Chest X-Ray 08/10/16 05:49 IMPRESSION: Borderline cardiomegaly. No pulmonary vascular congestion. No focal opacities. Assessment & Plan - Diagnosis (1) Congestive heart failure Qualifiers: Congestive heart failure type: combined Congestive heart failure chronicity: acute on chronic Qualified Code(s): I50.43 - Acute on chronic combined systolic (congestive) and diastolic (congestive) heart failure Is this a current diagnosis for this admission?: Yes (2) Cardiomyopathy Qualifiers: Cardiomyopathy type: unspecified Qualified Code(s): I42.9 - Cardiomyopathy, unspecified Is this a current diagnosis for this admission?: Yes (3) Diabetes type 2, uncontrolled Qualifiers: Diabetes mellitus complication status: with unspecified complications Diabetes mellitus retirement insulin use: unspecified plater helper insulin use status Qualified Code(s): E11.8 - Type 2 diabetes mellitus with unspecified complications; E11.65 - Type 2 diabetes mellitus with hyperglycemia ; Z79.4 - manager of operations (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 Patient also noted to be volume overloaded. Agree with IV diuretic therapy. Added carvedilol yesterday. Patient already on VI inhibitor and digoxin. She seems to be tolerating it well. Cardiomyopathy: We will optimize therapy for underlying cardiomyopathy. A 2-D echo showed depressed LVEF at 35-40% and moderate mitral regurgitation. Diabetes: Currently uncontrolled. Glycohemoglobin is high. Recommend good control of blood sugar but avoid hypoglycemia. Hypertension:Hypertension: Reasonably well controlled. Blood pressure goal in this patient is 130/80 or less. This was discussed with the patient. Currently blood pressure under reasonable control. Better medication for this patient are VI inhibitor/ARB/beta tri etc. discussed side effects of uncontrolled hypertension and also severe hypotension. Sleep disordered breathing: Patient may have underlying sleep apnea. This may need to be evaluated as an outpatient. Patient should be educated in CHF pathway. This should include salt and fluid restriction, daily weighing, adjustment of diuretic therapy based on weight gain et cetera. Patient to be educated that if there is gain of more than 2 pounds in a day or more than 5 pounds in a week, this indicates fluid retention and patient may need to adjust the diuretic therapy. Symptoms associated with CHF exacerbation to be discussed with the patient. This could include rapid weight gain, abdominal bloating, increased shortness of breath, fatigue, tiredness, cardiac arrhythmias et cetera.Have switched patient to Demadex 20 mg by mouth daily. Hopefully patient will be compliant. I feel from my side, patient is ready for discharge with close cardiology follow-up. These were discussed with the patient. - Time Time with patient: Greater than 35 minutes - CODE STATUS was discussed, patient remains full code. Surrogate decision-maker unchanged. Multiple medical problems were addressed.More than 50% of the time spent coordinating care, discussing management plans with involved caregivers. Management plans discussed with involved personnels. Medical decision making was of moderate complexity.
[2016-08-11] MEDS ORDERED: ATORVASTATIN CALCIUM 40 MG TABLET PO SCH (22:00)
[2016-08-12] MEDS: HYDRALAZINE HCL 50 MG TABLET PO SCH (05:30)
[2016-08-12] MEDS: HEPARIN SOD (PORCINE) 5,000 UNIT/ML 1 ML SYRINGE SUBCUT SCH (05:31)
[2016-08-12 05:46] LABS: ANION GAP 11 (5-19); BLOOD UREA NITROGEN 19 mg/dL (7-20); CALCIUM 10.1 mg/dL (8.4-10.2); CARBON DIOXIDE 24 mmol/L (22-30); CHLORIDE 99 mmol/L (98-107); CREATININE RESULT 0.65 mg/dL (0.52-1.25); GLUCOSE 204 mg/dL (75-110); MAGNESIUM 1.6 mg/dL (1.6-2.3); POTASSIUM 3.9 mmol/L (3.6-5.0); SODIUM 134.3 mmol/L (137-145)
[2016-08-12] MEDS: METFORMIN HCL 500 MG TABLET PO SCH (07:46)
[2016-08-12] MEDS: INSULIN LISPRO 100 UNIT/ML 3 ML VIAL SUBCUT PRN (07:46)
[2016-08-12] MEDS ORDERED: CARVEDILOL 3.125 MG TABLET PO SCH (07:53)
[2016-08-12] MEDS ORDERED: SITAGLIPTIN PHOSPHATE 50 MG TABLET PO SCH (08:00)
[2016-08-12] MEDS: ASPIRIN 81 MG TABLET, ENT COATED PO SCH (09:42)
[2016-08-12] MEDS: DIGOXIN 0.125 MG TABLET PO SCH (09:42)
[2016-08-12] MEDS: FAMOTIDINE 20 MG TABLET PO SCH (09:43)
[2016-08-12] MEDS: LISINOPRIL 10 MG TABLET PO SCH (09:44)
[2016-08-12] MEDS ORDERED: POTASSIUM CHLORIDE 10 MEQ TABLET.SA PO SCH (10:00)
[2016-08-12] MEDS ORDERED: TORSEMIDE 20 MG TABLET PO SCH (10:00)
[2016-08-12] MEDS ORDERED: CARVEDILOL 6.25 MG TABLET PO SCH (10:00)
[2016-08-12 10:39] VITALS: BP 152/88
--- NOTE | 2016-08-12 11:11 | PDOC DISCHARGE SUMMARY ---
General - Admit/Disc Date/PCP Admission Date/Primary Care Provider: 08/10/16 08:41 Discharge Date: 08/12/16 - Discharge Diagnosis (1) Acute on chronic systolic (congestive) heart failure Is this a current diagnosis for this admission?: YesSummary: Patient with known history of chronic systolic and diastolic heart failure presented with fluid volume overload.She had recently lost her job and had been without her medications pending Medicaid application. She now has coverage and understands the need to be compliant with her medications and diet. She was instructed to weigh herself daily and report in weight gain of 3 or more pounds (2) Acute on chronic respiratory failure with hypoxemia Is this a current diagnosis for this admission?: YesSummary: Resolved with diuresis (3) Diabetes type 2, uncontrolled Is this a current diagnosis for this admission?: YesSummary: Patient will need close medical follow up . She again has been without medications for sometimes and was found to have HBA1c of 11 (4) Hypertension Is this a current diagnosis for this admission?: Yes (5) Hypertensive urgency Is this a current diagnosis for this admission?: YesSummary: Resolved with modification of current antihypertensive medications (6) Cardiomyopathy Is this a current diagnosis for this admission?: YesSummary: Secondary to poorly controlled hypertension and valvular heart disease (7) Mitral regurgitation Is this a current diagnosis for this admission?: YesSummary: Patient will need close cardiology follow up of moderate to severe mitral regurgitation (8) Obesity Is this a current diagnosis for this admission?: YesSummary: Discuss need to optimize weight with cardiomyopathy - Additional Information Resuscitation Status: Full Code Discharge Diet: Cardiac, Diabetic Discharge Activity: Activity As Tolerated, Balance Activity w/Rest, Weigh Daily Home Medications: Aspirin [Ecotrin 81 mg EC Tablet] 81 mg PO DAILY tabec 08/12/16 Atorvastatin Calcium [Lipitor 40 mg Tablet] 40 mg PO QHS #30 tablet 08/12/16 Carvedilol [Coreg 12.5 mg Tablet] 12.5 mg PO Q12 #60 tablet 08/12/16 Digoxin [Lanoxin 0.125 mg Tablet] 0.125 mg PO DAILY #30 tablet 08/12/16 Lisinopril [Prinivil 40 mg Tablet] 40 mg PO DAILY #30 tablet 08/12/16 Metformin HCl [Glucophage] 500 mg PO BIDACBS #60 tablet 08/12/16 Potassium Chloride [K-Tab ER] 20 meq PO DAILY #30 tablet.er 08/12/16 Sitagliptin Phosphate [Januvia 50 mg Tablet] 100 mg PO DAILY #60 tablet Torsemide [Demadex 20 mg Tablet] 20 mg PO DAILY #30 tablet 08/12/16 History of Present Illness Patient complains of: Shortness of breath and increasing dypsnea History of Present Illness: PHILLIP DORANTES is a 46 year old female who presented to [facility]'s emergency department on 08/10/2016, increasing shortness of breath and dyspnea over the previous 3 days. She she was tachycardic, tachypneic, and hypertensive on presentation. She states she had an 8 pound weight gain over the last 2 days prior to admission. She lost her health insurance 2 months ago after losing her job, and has had none of her medications since then. Patient was placed on oxygen and started on IV nitroglycerin due to hypertensive urgency. She was referred to the hospitalist service for admission. Hospital Course Hospital Course: She was admitted to [facility] on telemetry. She was diuresed with IV Lasix twice a day. Cardiology was consulted for heart failure management. Dr. Webb, saw the patient for cardiology consult. Her medications were adjusted for better control of her hypertension. Started on digoxin and daily torsemide. She had a 10 pound reduction in her weight. Today her dyspnea has resolved. She is oxygenating well on room air. She now has her medical assistance available for access to her medications post discharge. She will be establish with new primary care provider follow-up in one week. She will follow with Dr. Webb post discharge, for continued observation of her moderate to severe mitral regurgitation. She was instructed on the need to weigh daily and record, reporting awakening greater than 3 pounds in a 24-hour period or 5 pounds in one week. Physical Exam Vital Signs: Temp Pulse Resp BP Pulse Ox 97.6 F 96 14 152/88 H 99 08/12/16 10:37 08/12/16 10:37 08/12/16 10:37 08/12/16 10:37 08/12/16 10:37 Intake & Output 08/11/16 08/12/16 08/13/16 06:59 06:59 06:59 Intake Total 1728 2153 Output Total 1150 Balance 578 2153 Weight 92.3 kg 93.3 kg General appearance: PRESENT: no acute distress, obese, well-developed, well- nourished Head exam: PRESENT: atraumatic, normocephalic Eye exam: PRESENT: conjunctiva pink, EOMI, PERRLA. ABSENT: scleral icterus Ear exam: PRESENT: normal external ear exam Mouth exam: PRESENT: moist, tongue midline Neck exam: ABSENT: carotid bruit, JVD, lymphadenopathy, thyromegaly Respiratory exam: PRESENT: clear to auscultation ac. ABSENT: rales, rhonchi, wheezes Cardiovascular exam: PRESENT: RRR, systolic murmur - 3/6 systolic murmur. ABSENT: diastolic murmur, rubs Pulses: PRESENT: normal dorsalis pedis pul Vascular exam: PRESENT: normal capillary refill GI/Abdominal exam: PRESENT: normal bowel sounds, soft. ABSENT: distended, guarding, mass, organolmegaly, rebound, tenderness Rectal exam: PRESENT: deferred Extremities exam: PRESENT: full ROM. ABSENT: calf tenderness, clubbing, pedal edema Neurological exam: PRESENT: alert, awake, oriented to person, oriented to place , oriented to time, oriented to situation, CN II-XII grossly intact. ABSENT: motor sensory deficit Psychiatric exam: PRESENT: appropriate affect, normal mood. ABSENT: homicidal ideation, suicidal ideation Skin exam: PRESENT: dry, intact, warm. ABSENT: cyanosis, rash Results Laboratory Results: 08/12/16 04:53 08/12/16 04:53 Sodium 134.3 L Potassium 3.9 Chloride 99 Carbon Dioxide 24 Anion Gap 11 BUN 19 Creatinine 0.65 Est GFR ( Amer) > 60 Est GFR (Non-Af Amer) > 60 Glucose 204 H Calcium 10.1 Magnesium 1.6 Impressions: Chest X-Ray 08/10/16 05:49 IMPRESSION: Borderline cardiomegaly. No pulmonary vascular congestion. No focal opacities. Qualifiers PATEINT BEING DISCHARGED WITH ANY OF THE FOLLOWING DIAGNOSIS?: Heart Failure HF Pt being discharged on ACEI for LVEF less than 40%?: Yes HF Pt discharged on evidence-based Beta Pia?: Yes Plan Discharge Plan: Home with follow up in one week with primary care. Cardiology with Dr Webb next available
--- NOTE | 2016-08-12 19:22 | PDOC PROGRESS REPORT ---
Subjective Progress Note for:: 08/12/16 Subjective:: Patient seems to be doing better with significant improvement. Pt is denying any chest arm or neck discomfort. Patient denying any PND, orthopnea. Patient denied any sustained palpitations, dizziness, syncope, near syncope. Patient denying any fever chills. Patient denying any other significant discomfort. Patient is maintaining sinus rhythm with less tachycardia. Review of systems: Rest review of systems negative. Medications: Medications have been reviewed. Physical Exam Vital Signs: Temp Pulse Resp BP Pulse Ox 97.6 F 96 14 152/88 H 99 08/12/16 10:37 08/12/16 10:37 08/12/16 10:37 08/12/16 10:37 08/12/16 10:37 Intake & Output 08/11/16 08/12/16 08/13/16 06:59 06:59 06:59 Intake Total 1728 2153 Output Total 1150 Balance 578 2153 Weight 92.3 kg 93.3 kg Exam: GENERAL: well-nourished and in no acute distress. Alert and oriented x3 HEAD: Atraumatic, normocephalic. EYES: Pupils equal round and reactive to light, extraocular movements intact, sclera anicteric, conjunctiva are normal. ENT: TMs normal, nares patent, oropharynx clear without exudates. Moist mucous membranes. No oral ulcerations or bleeding gums noted NECK: supple without lymphadenopathy. Trachea is central. No cervical or axillary lymphadenopathy noted. Carotids are 2+, JVD WNL LUNGS: Respiration seems nonlabored, no significant accessory muscle action noted. Breath sounds clear to auscultation bilaterally and equal noted. No wheezes rales or rhonchi noted. No significant dullness noted on percussion. CHEST: Palpation of the chest wall shows no significant chest wall tenderness. No other significant abnormalities noted. 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 ABDOMEN: Soft, no significant tenderness appreciated, normoactive bowel sounds. No guarding, no rebound. No rigidity noted . No masses appreciated. EXTREMITIES: Pedal pulses are 1-2+, no calf tenderness noted. No clubbing or cyanosis.trace to 1+ pedal edema noted NEUROLOGICAL: Focused neurological exam showed no significant neurologic deficit. Normal speech, no focal weakness appreciated. PSYCH: Normal mood, normal affect. Judgment and insight within normal limits. SKIN: No significant ecchymosis, rash, ulcerations or signs of pruritus noted. MUSCULOSKELETAL EXAM: No significant joint swelling noted. Results Laboratory Results: 08/12/16 04:53 08/12/16 04:53 Sodium 134.3 L Potassium 3.9 Chloride 99 Carbon Dioxide 24 Anion Gap 11 BUN 19 Creatinine 0.65 Est GFR ( Amer) > 60 Est GFR (Non-Af Amer) > 60 Glucose 204 H Calcium 10.1 Magnesium 1.6 Impressions: Chest X-Ray 08/10/16 05:49 IMPRESSION: Borderline cardiomegaly. No pulmonary vascular congestion. No focal opacities. Assessment & Plan - Diagnosis (1) Congestive heart failure Qualifiers: Congestive heart failure type: combined Congestive heart failure chronicity: acute on chronic Qualified Code(s): I50.43 - Acute on chronic combined systolic (congestive) and diastolic (congestive) heart failure Is this a current diagnosis for this admission?: Yes (2) Cardiomyopathy Qualifiers: Cardiomyopathy type: unspecified Qualified Code(s): I42.9 - Cardiomyopathy, unspecified Is this a current diagnosis for this admission?: Yes (3) Diabetes type 2, uncontrolled Qualifiers: Diabetes mellitus complication status: with unspecified complications Diabetes mellitus custodial insulin use: unspecified custodial insulin use status Qualified Code(s): E11.8 - Type 2 diabetes mellitus with unspecified complications; E11.65 - Type 2 diabetes mellitus with hyperglycemia ; Z79.4 - residential (current) use of insulin Is this a current diagnosis for this admission?: Yes (4) Hypertension Qualifiers: Hypertension type: essential hypertension Qualified Code(s): I10 - Essential (primary) hypertension Is this a current diagnosis for this admission?: Yes (5) Sleep disorder breathing Is this a current diagnosis for this admission?: Yes (6) Mitral regurgitation Qualifiers: Cardiac valve disease etiology: etiology unspecified Qualified Code( s): I34.0 - Nonrheumatic mitral (valve) insufficiency Is this a current diagnosis for this admission?: YesPlan: Moderate to severe. Recommended follow-up. - Notes Notes: Congestive heart failure: Seems compensated clinically. Patient educated in CHF pathway. Patient advised in close follow-up. Cardiomyopathy: Patient's medical therapy for cardiomyopathy to be optimized. Diabetes: Currently under better control. Hypertension: Better controlled. Medical regimen to be optimized. Sleep disordered breathing: Patient will benefit from scheduling a sleep study and going on CPAP therapy if noted to have sleep apnea. Mitral regurgitation: This will need to be followed very closely. Patient will benefit from a repeat echocardiogram within the next 6-12 weeks. This was explained to the patient. Considerable time spent in educating Patient about CHF pathway which include salt and fluid restriction, daily weighing and compliance with medications. - Time Time with patient: Greater than 35 minutes - CODE STATUS was discussed, patient remains full code. Surrogate decision-maker unchanged. Multiple medical problems were addressed.More than 50% of the time spent coordinating care, discussing management plans with involved caregivers. Management plans discussed with involved personnels. Medical decision making was of moderate complexity.
== END 2016-08-12 11:00 | disposition home or self-care (01) | DRG 291 ==
LOC: ER 05:19 → EH 08:41 → UNDOADMIN 09:34 → 3W 13:14
PROC: 3E0234Z Introduction of Serum, Toxoid and Vaccine into Muscle, Percutaneous Approach (ICD-10-PCS; principal; 2016-08-12)
DX: I50.43 Acute on chronic combined systolic (congestive) and diastolic (congestive) heart failure (principal); J96.21 Acute and chronic respiratory failure with hypoxia; I42.9 Cardiomyopathy, unspecified; I16.0 Hypertensive urgency; I10 Essential (primary) hypertension; I34.0 Nonrheumatic mitral (valve) insufficiency; E11.65 Type 2 diabetes mellitus with hyperglycemia; E66.9 Obesity, unspecified; R63.5 Abnormal weight gain; Z68.37 Body mass index [BMI] 37.0-37.9, adult; Z79.4 Long term (current) use of insulin; Z23 Encounter for immunization
CPT/HCPCS: 36415; 71010; 80048; 80053; 80061; 81001; 82550; 82553; 82962; 83036; 83735; 83880; 84484; 84703; 85025; 85610; 85730; 87804; 90686; 93005; 93010; 93306; 94660; 96365; 96366; 96375; 99291; J1644; J1815; J1940; J3490

== ENCOUNTER 2016-11-19 11:34 | Emergency (ER) | payer MEDICAID ==
--- NOTE | 2016-11-19 12:14 | ER Document Report ---
ED Medical Screen (RME) - General Chief Complaint: High Blood Sugar Stated Complaint: ELEVATED BLOOD SUGAR,HEADACHE Time Seen by Provider: 11/19/16 12:12 Notes: Patient not feeling well for a couple of days. Experiencing dizziness and sweating episodes. Went to her primary care provider in [facility] who checked her blood sugars that was very high. Patient takes metformin for her blood sugar and in the past has been on insulin. Was sent here to get a "shot of insulin" TRAVEL OUTSIDE OF THE [place] IN LAST 30 DAYS: No - Related Data Allergies/Adverse Reactions: No Known Allergies Allergy (Verified 01/15/15 20:34) Past Medical History - Past Medical History Cardiac Medical History: Reports: Hx Congestive Heart Failure, Hx Hypertension, Hx Heart Murmur Endocrine Medical History: Reports: Hx Diabetes Mellitus Type 2 Renal/ Medical History: Denies: Hx Peritoneal Dialysis Past Surgical History: Reports: Hx Cardiac Catheterization - Immunizations Hx Diphtheria, Pertussis, Tetanus Vaccination: Yes Physical Exam - Vital signs Vitals: Temp Pulse Resp BP Pulse Ox 97.7 F 69 18 152/97 H 100 11/19/16 11:49 11/19/16 11:49 11/19/16 11:49 11/19/16 11:49 11/19/16 11:49 Course - Vital Signs Vital signs: Temp Pulse Resp BP Pulse Ox 97.7 F 69 18 152/97 H 100 11/19/16 11:49 11/19/16 11:49 11/19/16 11:49 11/19/16 11:49 11/19/16 11:49
[2016-11-19 12:55] LABS: ABSOLUTE EOSINOPHILS # (AUTO) 0.1 10^3/uL (0.0-0.6); ABSOLUTE LYMPHOCYTES (AUTO) 1.9 10^3/uL (0.5-4.7); ABSOLUTE MONOCYTES (AUTO) 0.4 10^3/uL (0.1-1.4); ABSOLUTE NEUT (AUTO) 8.2 10^3/uL (1.7-8.2); BASOPHILS % (AUTO) 0.3 % (0-2); EOSINOPHILS % (AUTO) 0.5 % (0-6); HEMATOCRIT 41.2 % (36.0-47.0); HEMOGLOBIN 13.2 g/dL (12.0-15.5); HGB HCT DIFFERENCE -1.6; LYMPHOCYTES % (AUTO) 17.9 % (13-45); MEAN CORPUSCULAR HEMOGLOBIN 28.2 pg (27.0-33.4); MEAN CORPUSCULAR HGB CONC 32.1 g/dL (32.0-36.0); MEAN CORPUSCULAR VOLUME 88 fl (80-97); MONOCYTES % (AUTO) 3.6 % (3-13); RED CELL DISTRIBUTION WIDTH 14.4 % (11.5-14.0); SEGMENTED NEUTROPHILS % (AUTO) 77.7 % (42-78); WHITE BLOOD COUNT 10.5 10^3/uL (4.0-10.5)
[2016-11-19] MEDS: NORMAL SALINE 1000 ML 1,000 ML IV PRN ×2 (13:00→14:44)
[2016-11-19 13:14] LABS: APPEARANCE,URINE CLOUDY; BILIRUBIN,URINE NEGATIVE (NEGATIVE); GLUCOSE, URINE >=500 mg/dL (NEGATIVE); KETONES,URINE NEGATIVE (NEGATIVE); LEUKOCYTE ESTERASE,URINE MODERATE (NEGATIVE); NITRITE,URINE NEGATIVE (NEGATIVE); PROTEIN,URINE NEGATIVE (NEGATIVE); URINE SPECIFIC GRAVITY 1.016; UROBILINOGEN,URINE NEGATIVE mg/dL (<2.0)
[2016-11-19 13:18] LABS: ALANINE AMINOTRANSFERASE 20 U/L (9-52); ALBUMIN 4.4 g/dL (3.5-5.0); ALKALINE PHOSPHATASE 128 U/L (38-126); ANION GAP 18 (5-19); ASPARTATE AMINO TRANSFERASE 20 U/L (14-36); BILIRUBIN,DIRECT 0.5 mg/dL (0.0-0.4); BILIRUBIN,TOTAL 0.8 mg/dL (0.2-1.3); BLOOD UREA NITROGEN 35 mg/dL (7-20); CALCIUM 10.2 mg/dL (8.4-10.2); CARBON DIOXIDE 25 mmol/L (22-30); CHLORIDE 85 mmol/L (98-107); CREATININE RESULT 1.76 mg/dL (0.52-1.25); POTASSIUM 4.3 mmol/L (3.6-5.0); SODIUM 128.3 mmol/L (137-145); TOTAL PROTEIN 8.5 g/dL (6.3-8.2)
[2016-11-19 13:29] LABS: GLUCOSE 710 mg/dL (75-110)
[2016-11-19] MEDS ORDERED: INSULIN REG, HUMAN 100 UNIT/ML 3 ML VIAL (PYX) SUBCUT ONE (13:29)
--- NOTE | 2016-11-19 13:58 | ER Document Report ---
ED General - General Chief Complaint: High Blood Sugar Stated Complaint: ELEVATED BLOOD SUGAR,HEADACHE Time Seen by Provider: 11/19/16 12:12 Mode of Arrival: Ambulatory Information source: Patient Notes: 46 yr old diabeic female presents on metformin with concerns of high blood sugar , pt noted to be high by her pcp today. admits to dizziness. TRAVEL OUTSIDE OF THE [place] IN LAST 30 DAYS: No - HPI Onset: Just prior to arrival Onset/Duration: Sudden Quality of pain: No pain Severity: Moderate Pain Level: Denies Associated symptoms: Other Exacerbated by: Other Relieved by: Denies Similar symptoms previously: Yes Recently seen / treated by doctor: Yes - Related Data Allergies/Adverse Reactions: No Known Allergies Allergy (Verified 01/15/15 20:34) Past Medical History - Social History Smoking Status: Current Some Day Smoker Chew tobacco use (# tins/day): No Frequency of alcohol use: None Drug Abuse: Bath salts Family History: Reviewed & Not Pertinent. denies: CAD Patient has suicidal ideation: No Patient has homicidal ideation: No - Past Medical History Cardiac Medical History: Reports: Hx Congestive Heart Failure, Hx Hypertension, Hx Heart Murmur Endocrine Medical History: Reports: Hx Diabetes Mellitus Type 2 Renal/ Medical History: Denies: Hx Peritoneal Dialysis Past Surgical History: Reports: Hx Cardiac Catheterization - Immunizations Hx Diphtheria, Pertussis, Tetanus Vaccination: Yes Review of Systems - Review of Systems Notes: PHYSICAL EXAMINATION: GENERAL: Well-appearing, well-nourished and in no acute distress. HEAD: Atraumatic, normocephalic. EYES: Pupils equal round and reactive to light, extraocular movements intact, conjunctiva are normal. ENT: Nares patent, oropharynx clear without exudates. Moist mucous membranes. NECK: Normal range of motion, supple without lymphadenopathy LUNGS: Breath sounds clear to auscultation bilaterally and equal. No wheezes rales or rhonchi. HEART: Regular rate and rhythm without murmurs ABDOMEN: Soft, nontender, nondistended abdomen. No guarding, no rebound. No masses appreciated. Female : deferred Musculoskeletal: Normal range of motion, no pitting or edema. No cyanosis. NEUROLOGICAL: Cranial nerves grossly intact. Normal speech, normal gait. Normal sensory, motor exams PSYCH: Normal mood, normal affect. SKIN: Warm, Dry, normal turgor, no rashes or lesions noted. Physical Exam - Vital signs Vitals: Temp Pulse Resp BP Pulse Ox 97.7 F 69 18 152/97 H 100 11/19/16 11:49 11/19/16 11:49 11/19/16 11:49 11/19/16 11:49 11/19/16 11:49 Course - Re-evaluation Re-evalutation: 11/19/16 14:00 Patient's blood sugar is noted to be 700, IV fluids and insulin have been ordered. No ketones on urine noted. 11/19/16 16:20 pt blood sugar is 365 and improving, will continue fluids then dc home ot ofllow up with pcp tomorrow Patient has no sign of diabetic ketoacidosis or respiratory failure After performing a Medical Screening Examination, I estimate there is LOW risk for ACUTE CORONARY SYNDROME, RESPIRATORY FAILURE, SEPSIS OR MENINGITIS, thus I consider the discharge disposition reasonable. I have reevaluated this patient multiple times and no significant life threatening changes are noted. The patient and I have discussed the diagnosis and risks, and we agree with discharging home with close follow-up. We also discussed returning to the Emergency Department immediately if new or worsening symptoms occur. We have discussed the symptoms which are most concerning (e.g., changing or worsening pain, trouble swallowing or breathing, neck stiffness, fever) that necessitate immediate return. 11/19/16 16:25 Upon preparing for discharge is noted at previous diagnoses include cardiomyopathy, patient is having no respiratory distress - Vital Signs Vital signs: Temp Pulse Resp BP Pulse Ox 97.7 F 69 18 152/97 H 100 11/19/16 11:49 11/19/16 11:49 11/19/16 11:49 11/19/16 11:49 11/19/16 11:49 - Laboratory Result Diagrams: 11/19/16 12:25 11/19/16 12:25 Laboratory results interpreted by me: 11/19/16 11/19/16 11/19/16 12:25 12:25 12:25 RDW 14.4 H VBG pH Sodium 128.3 L Chloride 85 L BUN 35 H Creatinine 1.76 H Est GFR ( Amer) 38 L Est GFR (Non-Af Amer) 31 L Glucose 710 H* POC Glucose Direct Bilirubin 0.5 H Alkaline Phosphatase 128 H Total Protein 8.5 H Urine Glucose (UA) >=500 H Urine Blood SMALL H Ur Leukocyte Esterase MODERATE H 11/19/16 11/19/16 14:00 15:49 RDW VBG pH 7.29 L Sodium Chloride BUN Creatinine Est GFR ( Amer) Est GFR (Non-Af Amer) Glucose POC Glucose 365 H Direct Bilirubin Alkaline Phosphatase Total Protein Urine Glucose (UA) Urine Blood Ur Leukocyte Esterase Critical Care Note - Critical Care Note Total time excluding time spent on procedures (mins): 44 Comments: minutes of critical care time spent in direct contact evaluating and reevaluating the patient, treating symptoms, reviewing labs and studies and speaking with family and consultants excluding any procedures Discharge - Discharge Clinical Impression: severe hyperglycemia, Dizziness Condition: Stable Disposition: HOME, SELF-CARE Instructions: Diabetes ([facility]) Additional Instructions: Follow up with your physician tomorrow for further care or return to the ED IMMEDIATELY if symptoms worsen or new concerns occur. If you cannot afford to follow up with your primary care physician a list of low cost clinics have been provided at the end of your discharge papers as well.
[2016-11-19 14:27] LABS: VENOUS BLOOD BASE EXCESS -1.6 mmol/L; VENOUS BLOOD HCO3 25.9 mmol/L (20-32); VENOUS BLOOD PCO2 55.1 mmHg (35-63); VENOUS BLOOD PH 7.29 (7.30-7.42)
[2016-11-19] MEDS ORDERED: NORMAL SALINE 1000 ML 1,000 ML IV PRN (14:28)
[2016-11-19 17:00] VITALS: BP 171/94
== END 2016-11-19 17:00 | disposition home or self-care (01) ==
LOC: ER 11:34
DX: R73.9 Hyperglycemia, unspecified (principal); R42 Dizziness and giddiness
CPT/HCPCS: 99283; 96360; 96361; 36415; 82962; 85025; 80053; 81001; 82803; J1815; J7030

== ENCOUNTER → 2017-02-17 | Outpatient (CLI) | payer MEDICAID ==
--- NOTE | 2017-02-17 15:39 | RADIOLOGY REPORT (SQ) ---
EXAM DESCRIPTION: DUPLEX ART/VARGHESE FLOW COMPLETE COMPLETED DATE/TIME: 02/17/2017 10:14 am REASON FOR STUDY: ESSENTIAL HTN/OTHER SECONDARY PULMONARY HTN I10 ESSENTIAL (PRIMARY) HYPERTENSION I27.2 OTHER SECONDARY PULMONARY HYPERTENSION COMPARISON: None. TECHNIQUE: Realtime and static grayscale images acquired. Selected color Doppler, velocities and spe ctral images recorded. LIMITATIONS: Renal artery is about origin off the aorta were difficult to visualize due to midline b owel gas. Renal artery assessment was performed of the niall bilaterally. FINDINGS: RIGHT KIDNEY: RENAL ARTERY VELOCITIES: 47 cm/sec. Segmental artery velocity 37 cm/sec. RENAL VEIN: Color doppler flow present, patent. VELOCITY RATIO: 0.75. Normal waveforms. KIDNEY: 10.3 cm in length. 2.6 cm simple cyst right lower pole kidney. LEFT KIDNEY: RENAL ARTERY VELOCITIES: 83 cm/sec. Segmental artery velocity 55 cm/sec. RENAL VEIN: Color doppler flow present, patent. VELOCITY RATIO: 1.3. Normal waveforms. KIDNEY: Normal size. 3.2 by 2.3 cm septated cyst left lower pole kidney. BLADDER: Normal. Bilateral ureteral jets are identified OTHER: No other significant finding. IMPRESSION: NO DOPPLER EVIDENCE OF HEMODYNAMICALLY SIGNIFICANT RENAL ARTERY STENOSIS. Left lower pole renal cortical cyst with septations. Consider CT of the kidneys without and with con trast for further evaluation. COMMENT: NORMAL RENAL ARTERY/AORTA VELOCITY RATIO IS LESS THAN OR EQUAL TO 3.5. TECHNICAL DOCUMENTATION: JOB ID: [id number] [employer]- All Rights Reserved
== END ==
LOC: RAD 09:00
PROVIDERS: ATTEND Physician Assistant Medical
DX: I10 Essential (primary) hypertension (principal); I27.2 Other secondary pulmonary hypertension
CPT/HCPCS: 93975

== ENCOUNTER 2017-05-13 10:38 | Inpatient (IN) | payer MEDICAID ==
[2017-05-13] MEDS ORDERED: LABETALOL HCL INJ 20 MG/4 ML DISP.SYRIN IV ONE (11:02)
--- NOTE | 2017-05-13 11:02 | ER Document Report ---
ED General - General Mode of Arrival: Stretcher Information source: Patient TRAVEL OUTSIDE OF THE [place] IN LAST 30 DAYS: No - HPI Onset: Yesterday <EDMUNDO NESBITT - Last Filed: 05/13/17 19:11> <REJI GOMEZ - Last Filed: 05/13/17 19:21> - General Chief Complaint: S/S of Possible Stroke Stated Complaint: POSSIBLE STROKE Time Seen by Provider: 05/13/17 10:41 Notes: Patient is a 46 year old female that presents to the emergency department via EMS. EMS states that the patient stated she was "feeling funny" on her way to work around 8-830 this morning. EMS states that they noticed facial droop on her right side. At bedside patient is unable to form sentences. She answers only yes or no questions. After consulting the patients son, son states that patient has been unable to speak since last night. (EDMUNDO NESBITT) - Related Data Allergies/Adverse Reactions: No Known Allergies Allergy (Verified 01/15/15 20:34) Home Medications: Current Home Medications No Home Medications 05/13/17 [History] Past Medical History - General Information source: Patient - Social History Smoking Status: Unknown if Ever Smoked Family History: Reviewed & Not Pertinent - Past Medical History Cardiac Medical History: Reports: Hx Congestive Heart Failure, Hx Hypertension, Hx Heart Murmur Endocrine Medical History: Reports: Hx Diabetes Mellitus Type 2 Past Surgical History: Reports: Hx Cardiac Catheterization - Immunizations Hx Diphtheria, Pertussis, Tetanus Vaccination: Yes <EDMUNDO NESBITT - Last Filed: 05/13/17 19:11> Review of Systems - Review of Systems -: Yes ROS unobtainable due to patient's medical condition - Patient was unable to speak. Would only answer yes or no quesitons. Constitutional: No symptoms reported EENT: No symptoms reported Cardiovascular: No symptoms reported Respiratory: No symptoms reported Gastrointestinal: No symptoms reported Genitourinary: No symptoms reported Female Genitourinary: No symptoms reported Musculoskeletal: No symptoms reported Skin: No symptoms reported Hematologic/Lymphatic: No symptoms reported Neurological/Psychological: See HPI <EDMUNDO NESBITT - Last Filed: 05/13/17 19:11> Physical Exam <EDMUNDO NESBITT - Last Filed: 05/13/17 19:11> <REJI GOMEZ - Last Filed: 05/13/17 19:21> - Vital signs Vitals: Pulse Resp BP Pulse Ox 67 16 195/118 H 98 05/13/17 10:45 05/13/17 10:45 05/13/17 10:45 05/13/17 10:45 - Notes Notes: GENERAL: Alert, unable to speak. No acute distress. HEAD: Normocephalic, atraumatic. EYES: Pupils equal, round, and reactive to light. Extraocular movements intact. ENT: Oral mucosa moist, tongue midline. NECK: Full range of motion. Supple. Trachea midline. LUNGS: Clear to auscultation bilaterally, no wheezes, rales, or rhonchi. No respiratory distress. HEART: Regular rate and rhythm. No murmurs, gallops, or rubs. ABDOMEN: Soft, non-tender. Non-distended. Bowel sounds present in all 4 quadrants. EXTREMITIES: Moves all 4 extremities spontaneously. No edema, radial and dorsalis pedis pulses 2/4 bilaterally. No cyanosis. NEUROLOGICAL: Patient is unable to speak. Only answers yes or no questions. When attempting to write answer to question "what month it is", patient only writes the letters "F,S,H,I". cranial nerves II through XII grossly intact. Biceps and patellar DTRs 2+ bilaterally. Review NIH scale. Patient was unable to differentiate between sharp or dull. PSYCH: Normal affect, normal mood. SKIN: Warm, dry, normal turgor. No rashes or lesions noted. (EDMUNDO NESBITT) Course - Laboratory Result Diagrams: 05/13/17 11:04 05/13/17 11:04 <EDMUNDO NESBITT - Last Filed: 05/13/17 19:11> - Laboratory Result Diagrams: 05/13/17 11:04 05/13/17 11:04 <REJI GOMEZ - Last Filed: 05/13/17 19:21> - Re-evaluation Re-evalutation: Blood pressure is too high to determine stroke. Ordering STAT MRI to determine possible stroke. Consulting son, [place] over the phone. Son states that the patient does not speak Kiny[place] and that she has not been able to speak since last night. After consulting son, changed to routine MRI. 05/13/17 11:13 (EDMUNDO NESBITT) 05/13/17 12:52 Initially patient appeared to be within timeframe for TPA however than spoke with her son who stated that she has but not been normal since at least 8 PM last evening. Patient will no longer go for stat MRI as she is not within timeframe for TPA. Patient passed a swallow screen and was then given oral aspirin, CT scan of the head ruled out bleeding, CBC unremarkable, coags normal , CMP shows slightly low potassium at 3.1 slightly low CO2 at 19 as well as hyperglycemia, otherwise grossly unremarkable, cardiac enzymes negative. Chest x-ray shows cardiomegaly without failure. Discussed with patient and son why TPA is not appropriate at this time as she is greater than 12 hours from her last known normal time. Patient agreeable to not receiving TPA, difficult to determine if the patient fully understands why I am not giving it at this time. Discussed the patient with Dr. Olsen who directed me to speak with Cyril Sheridan WORKING SUPERVISOR, Cyril Sheridan accepted the patient to her service in the [facility]. 05/13/17 12:55 Initially patient was given bolus of labetalol when she was possibly within timeframe for TPA. Blood pressure responded well to this. (REJI GOMEZ) - Vital Signs Vital signs: Temp Pulse Resp BP Pulse Ox 97.8 F 80 18 183/93 H 100 05/13/17 16:50 05/13/17 16:50 05/13/17 16:50 05/13/17 16:50 05/13/17 16:50 - Laboratory Laboratory results interpreted by me: 05/13/17 05/13/17 11:01 11:04 Potassium 3.1 L Chloride 111 H Carbon Dioxide 19 L Glucose 188 H POC Glucose 227 H Calcium 7.2 L Total Protein 5.4 L Albumin 2.7 L - EKG Interpretation by Me Additional EKG results interpreted by me: 05/13/17 12:54 EKG shows sinus rhythm at a rate of 70, LVH, no ST segment elevations or depressions, T-wave inversions in lead III, T-wave flattening in aVF, T-wave inversions in V5 and V6, biphasic T waves in 1, aVL, V3 and the [address] segment elevations or depressions per my interpretation. (REJI GOMEZ) Discharge <EDMUNDO NESBITT - Last Filed: 05/13/17 19:11> - Discharge Admitting Provider: Evie Gómez [facility] Unit Admitted: [facility] <REJI GOMEZ - Last Filed: 05/13/17 19:21> - Discharge Clinical Impression: Stroke Qualifiers: CVA mechanism: unspecified Qualified Code(s): I63.9 - Cerebral infarction, unspecified Hypertension Qualifiers: Hypertension type: essential hypertension Qualified Code(s): I10 - Essential ( primary) hypertension Condition: Fair Disposition: ADMITTED INPATIENT Scribe Attestation: 05/13/17 19:21 I personally performed the services described in the documentation, reviewed and edited the documentation which was dictated to the scribe in my presence, and it accurately records my words and actions. (REJI GOMEZ) Scribe Documentation - Scribe Written by Jamee:: Jamee Sanchez, 05/13/2017 13:43 acting as scribe for :: Alessandra <EDMUNDO NESBITT - Last Filed: 05/13/17 19:11> ED NIH Stroke Scale - NIH Stroke Scale *: 1. NIH scale should be completed with appropriate accompanying assessment tools. *: 2. The NIH should reflect what the patient is capable of doing and should not be coached by the clinician. 1a. Level of Consciousness: 0=Alert;keenly responsive -: 1=Drowsy -: 2=Obtunded -: 3=Coma/unresponsive or reflex to noxious stimuli. 1a. Responses: 0 1b. Orientation Questions: a. What month is it? -: b. How old are you? -: 0=Answers both questions correctly. -: 1=Answers one question correctly or patient is intubated or has orotracheal trauma. -: 2=Answers neither question correctly. 1b. Responses: 2 1c. Response to commands: a. Open and close eyes? -: b. Envelope Machine Adjuster and release hand? -: Credit is given despite weakness. Demonstration of task is permitted. Substitute command if hands cannot be used. -: 0=Performs both tasks correctly -: 1=Performs one task correctly -: 2=Performs neither task correctly 1c. Responses: 0 2. Gaze: Establish eye contact and instruct patient to "Follow my finger" -: 0=Normal -: 1=Partial gaze palsy. Gaze is abnormal in one or both eyes, but where forced deviation or total gaze paresis is not present. -: 2=Forced deviation or total gaze paresis. 2. Responses: 0 3. Visual Gutierrez: Sees fingers in all four quadrants. -: 0=No visual loss. -: 1=Partial hemianopsia. -: 2=Complete hemianopsia. -: 3=Bilateral hemianopsia (including Cortical blindness) 3. Responses: 0 4. Facial Movement: Instruct patient to: -: a. Show me your teeth -: b. Raise your eyebrows -: c. Close your eyes -: d. Smile -: 0=Normal symmetrical movement -: 1=Minor paralysis (flattened nasolabial fold, asymmetry on smiling). -: 2=Partial paralysis (total or near total paralysis of lower face). -: 3=Complete paralysis of upper and lower face 4. Responses: 0 5. Motor functions (left arm): Alternate sides and extend each arm with palms down (90 degrees if sitting or 45 degrees for supine). -: 0=No drift;limb holds for full 10 seconds. -: 1=Drift; limb holds but drifts down before full 10 seconds, but does not hit bed. -: 2=Some effort against gravity; limb cannot get to or maintain position. -: 3=No effort against gravity; limb falls. -: 4=No movement. -: UN=Amputation, joint fusion, explain in comments. 5. Responses (left arm): 0 5. Motor Functions (right arm): Alternate sides and extend each arm with palms down (90 degrees if sitting or 45 degrees for supine). -: 0=No drift;limb holds for full 10 seconds. -: 1=Drift; limb holds but drifts down before full 10 seconds, but does not hit bed. -: 2=Some effort against gravity; limb cannot get to or maintain position. -: 3=No effort against gravity; limb falls. -: 4=No movement. -: UN=Amputation, joint fusion, explain in comments. 5. Responses (right arm): 0 6. Motor Functions (left leg): With patient lying supine, alternate sides and extend each leg (30 degrees always while supine). -: 0=No drift, leg holds position for full 5 seconds -: 1=Drift; leg falls before full 5 seconds but does not hit bed. -: 2=Some effort against gravity, leg falls to bed but some effort against gravity. -: 3=No effort against gravity, leg falls to bed immediately. -: 4=No movement. -: UN=Amputation, joint fusion; explain in comments. 6. Responses (left leg): 0 6. Motor Functions (right leg): With patient lying supine, alternate sides and extend each leg (30 degrees always while supine). -: 0=No drift, leg holds position for full 5 seconds -: 1=Drift; leg falls before full 5 seconds but does not hit bed. -: 2=Some effort against gravity, leg falls to bed but some effort against gravity. -: 3=No effort against gravity, leg falls to bed immediately. -: 4=No movement. -: UN=Amputation, joint fusion; explain in comments. 6. Responses (right leg): 0 7. Limb Ataxia: With eyes open instruct patient to: -: a. "Touch your finger to your nose". -: b. "Touch your heel to your rocha" -: 0=Absent -: 1=Present in one limb. -: 2=Present in two limbs. -: UN=Amputation or joint fusion; explain in comments. 7. Responses: 2 - patient unable to bring heel to rocha, able to bring heel to inner leg 8. Sensory: Test sensation using pinprick or noxious stimuli. Test as many body parts as possible. -: 0=Normal;no sensory loss -: 1=Mile to moderate sensory loss (patient feels pin prick but is less sharp on affected side). -: 2=Severe or total sensory loss. 8. Responses: 2 9. Best Language: Instruct patient to: -: a. "Describe what you see in this picture." -: b. "Name the items in this picture." -: c. "Read these sentences." -: 0=No aphasia, normal -: 1=Mild to moderate aphasia. -: 2=Severe aphasia -: 3=Mute, global aphasia, no usable speech or auditory comprehension. 9. Responses: 2 10. Articulation, Dysarthia: Instruct patient to: -: "Read these words" or "Repeat these words" -: 0=Normal -: 1=Mild to moderate; patient may slur some words but can be understood without difficulty. -: 2=Severe; patients speech so slurred as to be unintelligible in the absence of dysphasia. -: UN=Intubated or other physical barrier, explain in comments. 10. Responses: 1 - patient was able to read some words. Patient had no slurring 11. Extinction or inattention: 0=No abnormality -: 1= Visual, tactile, auditory, spatial, or personal inattention or extinction to bilateral simulation in one or the sensory modalities. -: 2=Profound puneet-inattention or puneet-inattention to more than one modality; does not recognize own hand. 11. Responses: 0 Total Score: 9 <EDMUNDO NESBITT - Last Filed: 05/13/17 19:11> ED [employer]/Exc Criteria - Date/Time patient last known well: Date/Time: Unknown - Date/Time patient arrived in ED: _: 05/13/2017 10:40 - Inclusion Criteria: 1: Patient presented to ED within 3 hours of acute ischemic stroke symptom onset ? -: No 2: Did baseline CT exclude intracranial hemorrhage and/or other risk factors? -: Yes 3: Is the age of the patient 18 years of age or greater? -: Yes : If any of the above questions are answered "NO" then stop, patient is not a candidate for Alteplase, : If all of the above questions are answered "YES" then continue with Exclusion Criteria. - The patient is: -: Included and is eligible to receive Alteplase. *Initiate bed placement at higher level of care* Reviewd risks & benefits of thrombolytic therapy: I have reviewed the risks and benefits of thrombolytic therapy with the patient and/or his/her family. -: Excluded and not eligible to receive Alteplase for the above exclusions. --: Yes -: Excluded and not eligible to receive Alteplase for other reasons (specify in comments): - Diagnosis of TIA: -: Patient presented with transient symptoms that are now resolved and no other neurologic findings are currently present. List symptoms in comments. -: Patient is NOT a candidate for tPA. -: Yes -: ____(put name in comment) has been consulted for admission and continued evaluation of risk factor assessment. Comment: NP. Jayy Sheridan <EDMUNDO NESBITT - Last Filed: 05/13/17 19:11>
--- NOTE | 2017-05-13 11:11 | RADIOLOGY REPORT (SQ) ---
EXAM DESCRIPTION: CT HEAD WITHOUT COMPLETED DATE/TIME: 05/13/2017 10:47 am REASON FOR STUDY: stroke s/s COMPARISON: None. TECHNIQUE: Axial images acquired through the brain without intravenous contrast. Images reviewed wi th bone, brain and subdural windows. Images stored on PACS. All CT scanners at this facility use dose modulation, iterative reconstruction, and/or weight based d osing when appropriate to reduce radiation dose to as low as reasonably achievable (ALARA). [facility]: Dose Right [facility]: CareDose [facility]: Dose Right [facility]: Teradose 4D [facility]: [address] [employer] RADIATION DOSE: 64.6 mGy. LIMITATIONS: None. FINDINGS: VENTRICLES: Normal size and contour. CEREBRUM: No masses. No hemorrhage. No midline shift. No evidence for acute infarction. Normal gra y/white matter differentiation. No areas of low density in the white matter. CEREBELLUM: No masses. No hemorrhage. No alteration of density. No evidence for acute infarction. EXTRAAXIAL SPACES: No fluid collections. No masses. ORBITS AND GLOBE: No intra- or extraconal masses. Normal contour of globe without masses. CALVARIUM: No fracture. PARANASAL SINUSES: No fluid or mucosal thickening. SOFT TISSUES: No mass or hematoma. OTHER: No other significant finding. IMPRESSION: NORMAL BRAIN CT WITHOUT CONTRAST. EVIDENCE OF ACUTE STROKE: NO. COMMENT: Findings were discussed with the ordering physician at 1105 hours on this date. Quality ID # [id number]: Final reports with documentation of one or more dose reduction techniques (e.g., Au tomated exposure control, adjustment of the mA and/or kV according to patient size, use of iterative reconstruction technique) TECHNICAL DOCUMENTATION: JOB ID: [id number]- All Rights Reserved
--- NOTE | 2017-05-13 11:12 | RADIOLOGY REPORT (SQ) ---
EXAM DESCRIPTION: CHEST SINGLE VIEW COMPLETED DATE/TIME: 05/13/2017 10:46 am REASON FOR STUDY: stroke COMPARISON: 08/10/2016 EXAM PARAMETERS: NUMBER OF VIEWS: One view. TECHNIQUE: Single frontal radiographic view of the chest acquired. RADIATION DOSE: NA LIMITATIONS: None. FINDINGS: LUNGS AND PLEURA: No opacities, masses or pneumothorax. No pleural effusion. MEDIASTINUM AND HILAR STRUCTURES: No masses. Contour normal. HEART AND VASCULAR STRUCTURES: Cardiomegaly without failure. BONES: No acute findings. HARDWARE: None in the chest. OTHER: No other significant finding. IMPRESSION: Cardiomegaly without failure. TECHNICAL DOCUMENTATION: JOB ID: [id number] [employer]- All Rights Reserved
[2017-05-13 11:15] LABS: ABSOLUTE BASOPHILS # (AUTO) 0.1 10^3/uL (0.0-0.2); ABSOLUTE EOSINOPHILS # (AUTO) 0.2 10^3/uL (0.0-0.6); ABSOLUTE LYMPHOCYTES (AUTO) 2.5 10^3/uL (0.5-4.7); ABSOLUTE MONOCYTES (AUTO) 0.4 10^3/uL (0.1-1.4); ABSOLUTE NEUT (AUTO) 5.8 10^3/uL (1.7-8.2); BASOPHILS % (AUTO) 0.6 % (0-2); EOSINOPHILS % (AUTO) 2.3 % (0-6); HEMATOCRIT 38.5 % (36.0-47.0); HEMOGLOBIN 13.1 g/dL (12.0-15.5); HGB HCT DIFFERENCE 0.8; LYMPHOCYTES % (AUTO) 27.7 % (13-45); MEAN CORPUSCULAR HEMOGLOBIN 28.4 pg (27.0-33.4); MEAN CORPUSCULAR VOLUME 84 fl (80-97); MONOCYTES % (AUTO) 4.9 % (3-13); RED CELL DISTRIBUTION WIDTH 13.9 % (11.5-14.0); SEGMENTED NEUTROPHILS % (AUTO) 64.5 % (42-78)
[2017-05-13] MEDS ORDERED: ASPIRIN 600 MG SUPP, RECTAL PR ONE (11:20)
[2017-05-13 11:24] LABS: PARTIAL THROMBOPLASTIN TIME 25.3 SEC (23.5-35.8); PROTHROMBIN TIME 12.5 SEC (11.4-15.4)
[2017-05-13 11:51] LABS: ALANINE AMINOTRANSFERASE 46 U/L (9-52); ALBUMIN 2.7 g/dL (3.5-5.0); ALKALINE PHOSPHATASE 98 U/L (38-126); ANION GAP 12 (5-19); ASPARTATE AMINO TRANSFERASE 31 U/L (14-36); BILIRUBIN,DIRECT 0.3 mg/dL (0.0-0.4); BILIRUBIN,TOTAL 0.5 mg/dL (0.2-1.3); BLOOD UREA NITROGEN 12 mg/dL (7-20); CALCIUM 7.2 mg/dL (8.4-10.2); CARBON DIOXIDE 19 mmol/L (22-30); CHLORIDE 111 mmol/L (98-107); CREATINE KINASE 86 U/L (30-135); CREATININE RESULT 0.58 mg/dL (0.52-1.25); GLUCOSE 188 mg/dL (75-110); POTASSIUM 3.1 mmol/L (3.6-5.0); SODIUM 142.2 mmol/L (137-145); TOTAL PROTEIN 5.4 g/dL (6.3-8.2)
[2017-05-13] MEDS ORDERED: ASPIRIN 325 MG TABLET PO ONE (11:54)
[2017-05-13 11:59] LABS: CREATINE KINASE MB 1.16 ng/mL (<4.55); TROPONIN I 0.026 ng/mL
[2017-05-13] MEDS ORDERED: LABETALOL HCL INJ 20 MG/4 ML DISP.SYRIN IV PRN (14:47)
--- NOTE | 2017-05-13 15:50 | RADIOLOGY REPORT (SQ) ---
EXAM DESCRIPTION: CAROTID DOPPLER COMPLETED DATE/TIME: 05/13/2017 3:29 pm REASON FOR STUDY: TIA COMPARISON: None. TECHNIQUE: Grayscale ultrasound, Doppler velocity and spectra, and color Doppler images acquired of the extra-cranial carotid and vertebral arteries. Images stored on PACS. LIMITATIONS: None. FINDINGS: RIGHT CAROTID CCA Velocities: Within normal limits. ICA Velocities Peak systolic 54cm/s. End diastolic 22cm/s. Proximal ICA/CCA peak systolic ratio 1.6. Spectra normal. No significant plaque. LEFT CAROTID CCA Velocities: Within normal limits. ICA Velocities Peak systolic 68cm/s. End diastolic 23cm/s. Proximal ICA/CCA peak systolic ratio 1.4. Spectra normal. No significant plaque. VERTEBRAL ARTERIES: Antegrade flow. Normal waveforms. SUBCLAVIAN ARTERIES: No finding. OTHER: No other significant finding. IMPRESSION: NO HEMODYNAMICALLY SIGNIFICANT STENOSIS. COMMENT: Quality ID #[id number]: Velocity criteria are extrapolated from the diameter data as defined by [place] Society of Radiologists in Ultrasound Consensus Conference. Radiology 2003: 229; 340-346. TECHNICAL DOCUMENTATION: JOB ID: [id number] [employer]- All Rights Reserved
--- NOTE | 2017-05-13 16:13 | RADIOLOGY REPORT (SQ) ---
EXAM DESCRIPTION: MRI HEAD WITHOUT COMPLETED DATE/TIME: 05/13/2017 4:01 pm REASON FOR STUDY: possible stroke, loss of speech COMPARISON: None. TECHNIQUE: Multiplanar imaging includes non-contrasted T1, T2, FLAIR, and diffusion with ADC map seq uences. Images stored on PACS. LIMITATIONS: None. FINDINGS: ANATOMY: No anomalies. Normal vascular flow voids. Pituitary fossa normal. CSF SPACES: Normal in size and contour. No hemorrhage. CEREBRUM: Sulci and gyri normal in size and contour. No evidence of hemorrhage, mass, or extraaxial f luid collection. POSTERIOR FOSSA: No signal alteration. No hemorrhage. No edema, masses or mass effect. Internal sunday tory canals, cerebello-pontine angles, mastoids normal. DIFFUSION IMAGING: Mostly geographic areas of increased signal on diffusion and corresponding decreas ed signal on ADC map in the left frontal lobe extending into the insula. ORBITS: No masses. Globes normal. PARANASAL SINUSES: No fluid levels. Mucosa normal. OTHER: No other significant finding. IMPRESSION: Acute, nonhemorrhagic infarct left MCA distribution. EVIDENCE OF ACUTE STROKE: YES. LEFT MCA TECHNICAL DOCUMENTATION: JOB ID: [id number]- All Rights Reserved
--- NOTE | 2017-05-13 16:28 | HISTORY AND PHYSICAL E ---
History and Physical NAME: PHILLIP DORNATES : 1970 AGE: 46Y ADMITTED: 05/13/2017 ROOM: ED50 PRIMARY CARE PROVIDER: Dr. Webb. CHIEF COMPLAINT: Inability to speak. HISTORY OF PRESENT ILLNESS: The patient is a 46-year-old female with a past medical history of hypertension and diabetes mellitus type 2. The patient presented to the emergency department with a chief complaint of inability to speak. The patient is known to the hospitalist service and myself due to previous admissions for CHF. The patient presented via EMS due to feeling funny. The patient was on her way to work at about 8:00 the morning of presentation, and she noticed the facial droop on the right side of her face. The patient was unable to complete sentences and was able to answer "yes" or "no." However, after consulting with the patient's son, the ER provider determined that the patient had been unable to actually speak since last night, which was well out of her tPA window. Initial CT of the brain did not find any evidence of hemorrhage, and the patient has had no episodes of nausea, vomiting, diarrhea, shortness of breath, dizziness, chest pain, no heart palpitations, no fevers, no chills, just an inability to articulate words. No visible facial droop at this time. Unremarkable cardiac enzymes and the patient has been referred for observation. PAST MEDICAL HISTORY: 1. Remarkable for cardiomyopathy. The patient had a documented of EF of between 35% and 40% in July of this year. 2. Chronic systolic and diastolic congestive heart failure. 3. Diabetes mellitus type 2. 4. Uncontrolled hypertension. 5. Morbid obesity. 6. Obstructive sleep apnea. ALLERGIES: No known drug allergies. HOME MEDICATIONS: 1. Demodex 20 mg p.o. daily. 2. Januvia 100 mg p.o. daily. 3. Potassium chloride 20 mEq p.o. daily. 4. Glucophage 500 mg p.o. b.i.d. 5. Lisinopril 40 mg p.o. daily. 6. Digoxin 0.125 mg p.o. daily. 7. Coreg 12.5 mg p.o. q.12 h. 8. Lipitor 40 mg p.o. every hour of sleep. SOCIAL HISTORY: The patient currently resides at home with her children. 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 The patient's surrogate decision maker is her son, Ten Church, who may be reached at [phone]. The patient has no previous history of tobacco use or illicit drug use. FAMILY MEDICAL HISTORY: The patient does have children, all of which are healthy. The patient has siblings who are healthy. The patient denies any family history of coronary artery disease. REVIEW OF SYSTEMS: CONSTITUTIONAL: The patient denies any fevers or chills, dizziness, weakness or loss of appetite. SKIN: The patient denies any diaphoresis, rash, bruising or itching. HEENT: Denies any vision or hearing loss, nasal drainage, sore throat, or headache. CARDIOVASCULAR: Denies any chest pain, edema, or heart palpitations. RESPIRATORY: Denies any shortness of breath, cough, sputum production or hemoptysis. GASTROINTESTINAL: Denies any nausea, vomiting, diarrhea, abdominal pain, bloating, hematemesis, constipation, melena, hematochezia. GENITOURINARY: Denies any hematuria, pyuria or dysuria. MUSCULOSKELETAL: Denies any acute or chronic joint pains. NEUROLOGIC: No seizures, tremors or loss of consciousness. The patient does appear to have expressive aphasia. The patient can articulate words but it is quite slow. ENDOCRINE: Denies any recent weight changes. PSYCHIATRIC: Denies suicidal or homicidal ideation. The rest of the review of the other organ systems is negative. PHYSICAL EXAMINATION: GENERAL: On examination, the patient is a well-developed, well-nourished 46-year-old female who is awake, alert and oriented to person, place, time and situation. She is verbal, conversational and ambulatory, does not appear to be in any acute distress. VITAL SIGNS: Temperature 97.6, pulse 71, respirations 24, blood pressure 130/119, oxygen saturation is 100% on room air. SKIN: Warm and dry. No rash. She is not diaphoretic. HEENT: Pupils are equal, round, and reactive to light and accommodation. Conjunctivae is pink. Sclerae are not icteric. There are no mouth lesions. Tongue is midline. NECK: Supple. No JVD. No palpable lymphadenopathy or thyromegaly. CARDIOVASCULAR: Heart is regular. There is no murmur or rub. CHEST: Clear, symmetrical and unlabored. ABDOMEN: Soft, nontender, nondistended. BACK: No CVA tenderness or sacral edema. EXTREMITIES: No clubbing, cyanosis or edema or peripheral signs of embolization. There are +2 pedal pulses are noted bilaterally. NEUROLOGIC: The patient does not have any area of focal weakness. DIAGNOSTICS: Labs are as follows: Hematology on 05/13/2017: WBC 9.0, hemoglobin 13.1, hematocrit 38.5, platelet count is 406,000. Coagulation obtained on 05/13/2017: PT 12.5, INR 0.88. Chemistry obtained on 05/13/2017: Sodium 142, potassium 3.1, chloride 111, carbon dioxide 19, BUN 20, creatinine 0.58, glucose 188, calcium 7.2, magnesium 1.6, bilirubin 0.3, AST 31, ALT 46, alkaline phosphatase 98, CK 6, CK-MB 1.06, troponin is 0.026, total protein 5.4, albumin 2.7. Head CT obtained on 05/13/2017 had no acute evidence of stroke. EKG obtained on 05/13/2017 reveals sinus rhythm with evidence of left ventricle hypertrophy. IMPRESSION AND PLAN: 1. TIA versus CVA. Will obtain MRI of the brain. Will ensure the patient is on aspirin and statin therapy and consult physical, occupational and speech therapies for evaluation and treatment. Will start *------* exams as well and maintain permissive hypertension. Will add labetalol for coverage of systolic greater than 180. 2. Chronic systolic and diastolic congestive heart failure. The patient appears euvolemic at this point. Will resume home medications. 3. Diabetes mellitus type 2. Will resume the patient's home medications and add sliding scale coverage. 4. Morbid obesity. Will encourage weight reduction. DISPOSITION: The patient is a FULL CODE. Pending patient's symptomatology and diagnostic findings, will evaluate in the a.m. Will observe the patient in continuous IMCU, as the patient's expected length of stay should not surpass 2 midnights. Time spent on this admission including assessment, plan, physical examination, patient education, family meeting, and review of previous and current medical records is 45 minutes. DICTATING PHYSICIAN: MAIKOL ZIMMERMAN NP [id number] PHY#: [id number] ID: [id number] JOB#: [id number] ACCT: [id number] cc:MAIKOL ZIMMERMAN INSURANCE SALES EXECUTIVE >
[2017-05-13] MEDS ORDERED: INFLUENZA ADLT QUAD (36MOS+) 2017-18 VAC 0.5 ML SYR IM PRN (17:12)
[2017-05-13] MEDS: ATORVASTATIN CALCIUM 80 MG TABLET PO SCH (21:21)
--- NOTE | 2017-05-13 22:23 | XCELERA REPORT ---
[address] [address] Transthoracic Echocardiogram Report Name: PHILLIP DORANTES Age: 46 yrs Gender: Female : 1970 Patient Status: Inpatient [address] Study Date: 05/13/2017 03:00 PM Height: 62 in Weight: 211 lb BSA: 2.0 m2 Procedure: A complete two-dimensional transthoracic echocardiogram was performed (2D, M-mode, spectral and color flow Doppler). The study was technically adequate with some images being suboptimal in quality. Reason For Study: TIA Ordering Physician: MAIKOL ZIMMERMAN Performed By: Domi Montgomery Interpretation Summary Left ventricular systolic function is mildly reduced. The Ejection Fraction estimate is 45-50% There is mild to moderate concentric left ventricular hypertrophy. The left ventricle is grossly normal size. Doppler measurements suggest pseudonormalized left ventricular relaxation, which is associated with grade II/IV or mild to moderate diastolic dysfunction Wall motion cannot be accurately commented on, but no definite regional wall motion abnormalities noted. The right ventricular systolic function is normal. The left atrium is moderately dilated. The right atrium is normal in size There is a moderate amount of mitral regurgitation There is no mitral valve stenosis. There is a mild amount of aortic regurgitation There is no aortic valve stenosis There is a trace to mild amount of tricuspid regurgitation There is mild pulmonary hypertension by echo Right ventricular systolic pressure is estimated to be elevated at 30- 40mmHg. There is no pericardial effusion. MMode/2D Measurements & Calculations RVDd: 2.5 cm LVIDd: 5.1 cm FS: 23.1 % Ao root diam: 2.4 cm IVSd: 1.4 cm LVIDs: 3.9 cm EDV(Teich): 125.6 ml LVPWd: 1.4 cm ESV(Teich): 67.9 ml Ao root area: 4.7 cm2 EF(Teich): 46.0 % Doppler Measurements & Calculations MV E max christo: MV dec slope: Ao V2 max: AI max christo: 159.5 cm/sec 168.6 cm/sec 573.6 cm/sec MV A max christo: 792.8 cm/sec2 Ao max PG: AI max P.1 cm/sec MV dec time: 11.4 mmHg 131.6 mmHg MV E/A: 2.4 0.20 sec AI dec slope: 341.2 cm/sec2 AI P1/2t: 492.5 msec LV V1 max PG: MR max christo: PA V2 max: PI end-d christo: 2.4 mmHg 843.9 cm/sec 95.8 cm/sec 137.6 cm/sec LV V1 max: MR max PG: PA max P.0 cm/sec 284.8 mmHg 3.7 mmHg TR max christo: 272.7 cm/sec TR max P.8 mmHg Left Ventricle The left ventricle is grossly normal size. There is mild to moderate concentric left ventricular hypertrophy. Left ventricular systolic function is mildly reduced. The Ejection Fraction estimate is 45-50%. Doppler measurements suggest pseudonormalized left ventricular relaxation, which is associated with grade II/IV or mild to moderate diastolic dysfunction. Wall motion cannot be accurately commented on, but no definite regional wall motion abnormalities noted. Right Ventricle The right ventricle is grossly normal size. There is normal right ventricular wall thickness. The right ventricular systolic function is normal. Atria The right atrium is normal in size. The left atrium is moderately dilated. Interarterial septum not well visualized and not well dopplered. Cannot comment on ASD/PFO presence. Mitral Valve The mitral valve leaflets are sclerotic and show some degree of functional abnormality. There is no mitral valve stenosis. There is a moderate amount of mitral regurgitation. Aortic Valve The aortic valve is grossly normal. There is no aortic valve stenosis. There is a mild amount of aortic regurgitation. Tricuspid Valve The tricuspid valve is not well visualized, but is grossly normal. There is no tricuspid stenosis. There is a trace to mild amount of tricuspid regurgitation. There is mild pulmonary hypertension by echo. Right ventricular systolic pressure is estimated to be elevated at 30-40mmHg. Pulmonic Valve The pulmonic valve is not well visualized. Great Vessels The aortic root is not well visualized but is probably normal size. The inferior vena cava appeared normal and decreased > 50% with respiration (RAP 5-10 mmHg). Effusions There is no pericardial effusion. : MAIKOL ZIMMERMAN > Virgil Webb
--- NOTE | 2017-05-14 00:13 | EKG REPORT ---
SEVERITY:- ABNORMAL ECG - SINUS RHYTHM LVH WITH SECONDARY REPOLARIZATION ABNORMALITY : Confirmed by: Virgil Webb 14-May-2017 00:12:55
[2017-05-14] MEDS: ENOXAPARIN SODIUM INJ 40 MG/0.4 ML DISP.SYRIN SUBCUT SCH (08:49)
[2017-05-14] MEDS: ASPIRIN 81 MG TABLET, CHEWABLE PO SCH (08:50)
[2017-05-14] MEDS ORDERED: DEXTROSE 40% GEL 15 GM TUBE PO PRN ×2 (11:26)
[2017-05-14] MEDS ORDERED: DEXTROSE 50%-WATER 25 GM/50 ML DISP.SYRIN IV PRN ×2 (11:26)
[2017-05-14] MEDS ORDERED: GLUCAGON,HUMAN RECOMB 1 MG INJ IM PRN (11:26)
--- NOTE | 2017-05-14 12:23 | PROGRESS NOTE E ---
Progress Note NAME: PHILLIP DORANTES : 1970 AGE: 46Y DATE: 05/14/2017 ROOM: 316 SUBJECTIVE: The patient is currently lying in bed. The patient is still having aphasia and when she does articulate, has some problems with expressive aphasia, but the patient does answer yes and no appropriately. The patient has had no evidence of nausea, vomiting, diarrhea. No shortness of breath, dizziness, chest pain. No fevers, chills. The patient has been afebrile. Her blood pressures have been elevated and the patient does not articulate any other concerns at this time. REVIEW OF SYSTEMS: The rest of the review of systems is negative. MEDICATIONS: Medications have been reviewed. OBJECTIVE: GENERAL: The patient is a 46-year-old female who is awake, alert, and oriented to person, place, time, and situation. She is verbal, but does have some difficulties with expression. She does not appear to be in any acute distress. VITAL SIGNS: Temperature is 98.0, pulse 85, respirations 16, blood pressure is 116/76, oxygen saturation is 99% on room air. SKIN: Warm and dry. No rash. She is not diaphoretic. HEENT: Pupils equal, round, and reactive to light and accommodation. Conjunctivae pink. NECK: There is no JVD. CARDIOVASCULAR SYSTEM: Heart is regular. There is no murmur or rub. CHEST: Clear, symmetrical, unlabored. ABDOMEN: Soft, nontender, and nondistended. Bowel sounds are present. No palpable organomegaly. BACK: No CVA tenderness or sacral edema. EXTREMITIES: There is no clubbing, cyanosis, edema or peripheral signs of embolization. PSYCHIATRIC: Appropriate affect, pleasant mood. DIAGNOSTIC DATA: Lab values are as follows: Hematology obtained on 05/13/2017: WBC's are 9.0, hemoglobin is 13.1, hematocrit is 38.5, platelet count is 406. Chemistries obtained on 05/13/2017: Sodium is 142, potassium is 3.1, chloride is 111, carbon dioxide 19, BUN 12, creatinine is 0.58, glucose 188, calcium is 7.2, bilirubin 0.5, AST 31, ALT is 46, alk phos 98. CK 86, CK-MB is 1.16. Troponin is 0. Total protein 5.4, albumin 2.7. Carotid Doppler obtained on 05/13/2017 reveals no hemodynamically significant stenosis. Head MRI obtained on 05/13/2017 reveals acute non-hemorrhagic infarction of the left MCA distribution. IMPRESSION AND PLAN: 1. LEFT MCA STROKE. The patient is having much difficulty with aphasia, but appears to have no other deficits. Speech Therapy is going to once again treat this afternoon with different resources. The patient is going to need intense speech therapy. However, she has been able to pass her swallow evaluation and so forth, will continue this. The patient was aspirin naive, have added aspirin therapy as well as a full-dose statin and will continue to allow permissive hypertension x24 more hours. 2. HYPOKALEMIA. This is being replaced. Currently awaiting repeat chemistries today and will follow. 3. CARDIOMYOPATHY WITH AN EF BETWEEN 35% AND 45% EARLIER THIS YEAR. IT APPEARS TO HAVE SLIGHTLY IMPROVED WITH HER MEDICATIONS. 4. CHRONIC SYSTOLIC AND DIASTOLIC CONGESTIVE HEART FAILURE. Will continue the patient's home medications. 5. DIABETES MELLITUS TYPE 2. Will continue the patient's home medication as well as sliding-scale coverage. 6. MORBID OBESITY. 7. OBSTRUCTIVE SLEEP APNEA. DISPOSITION: The patient is a FULL CODE. Pending the patient's symptomatology and diagnostic findings, will reevaluate in the a.m. TIME: Time spent on this followup including assessment, plan, physical examination, patient education, family meeting, and review of records was 35 minutes. DICTATING PHYSICIAN: MAIKOL ZIMMERMAN NP [id number] PHY#: [id number] ID: [id number] JOB#: [id number] ACCT: [id number] cc: >
[2017-05-14] MEDS: INSULIN LISPRO 100 UNIT/ML 3 ML VIAL SUBCUT PRN (13:04)
[2017-05-14 13:29] LABS: ANION GAP 12 (5-19); BLOOD UREA NITROGEN 15 mg/dL (7-20); CALCIUM 9.1 mg/dL (8.4-10.2); CARBON DIOXIDE 26 mmol/L (22-30); CHLORIDE 100 mmol/L (98-107); CREATININE RESULT 0.71 mg/dL (0.52-1.25); GLUCOSE 220 mg/dL (75-110); POTASSIUM 3.8 mmol/L (3.6-5.0); SODIUM 138.4 mmol/L (137-145)
[2017-05-14] MEDS ORDERED: LORAZEPAM INJ 2 MG/1 ML VIAL IV PRN (19:06)
[2017-05-14] MEDS: ATORVASTATIN CALCIUM 80 MG TABLET PO SCH (21:26)
[2017-05-15] MEDS: INSULIN LISPRO 100 UNIT/ML 3 ML VIAL SUBCUT PRN ×4 (01:32→23:47)
[2017-05-15] MEDS: ENOXAPARIN SODIUM INJ 40 MG/0.4 ML DISP.SYRIN SUBCUT SCH (10:35)
[2017-05-15] MEDS: ASPIRIN 81 MG TABLET, CHEWABLE PO SCH (10:35)
--- NOTE | 2017-05-15 12:41 | PDOC PROGRESS REPORT ---
Subjective Progress Note for:: 05/15/17 Subjective:: No new issues. Physical Exam Vital Signs: Temp Pulse Resp BP Pulse Ox 97.8 F 72 18 152/73 H 99 05/15/17 07:13 05/15/17 07:13 05/15/17 07:13 05/15/17 07:13 05/15/17 07:13 Intake & Output 05/14/17 05/15/17 05/16/17 06:59 06:59 06:59 Intake Total 228 1100 Output Total 1 Balance 227 1100 Weight 94 kg 95 kg General appearance: PRESENT: no acute distress, well-developed, well-nourished Head exam: PRESENT: atraumatic, normocephalic Eye exam: PRESENT: conjunctiva pink, EOMI, PERRLA. ABSENT: scleral icterus Ear exam: PRESENT: normal external ear exam Mouth exam: PRESENT: moist, tongue midline Neck exam: ABSENT: carotid bruit, JVD, lymphadenopathy, thyromegaly Respiratory exam: PRESENT: clear to auscultation ac. ABSENT: rales, rhonchi, wheezes Cardiovascular exam: PRESENT: RRR. ABSENT: diastolic murmur, rubs, systolic murmur Pulses: PRESENT: normal dorsalis pedis pul Vascular exam: PRESENT: normal capillary refill GI/Abdominal exam: PRESENT: normal bowel sounds, soft. ABSENT: distended, guarding, mass, organolmegaly, rebound, tenderness Rectal exam: PRESENT: deferred Extremities exam: PRESENT: full ROM. ABSENT: calf tenderness, clubbing, pedal edema Neurological exam: PRESENT: alert, awake, oriented to person, oriented to place , aphasic Psychiatric exam: PRESENT: agitated Skin exam: PRESENT: dry, intact, warm. ABSENT: cyanosis, rash Results Laboratory Results: 05/14/17 12:35 05/14/17 12:35 Sodium 138.4 Potassium 3.8 Chloride 100 Carbon Dioxide 26 Anion Gap 12 BUN 15 Creatinine 0.71 Est GFR ( Amer) > 60 Est GFR (Non-Af Amer) > 60 Glucose 220 H Calcium 9.1 Impressions: Chest X-Ray 05/13/17 10:39 IMPRESSION: Cardiomegaly without failure. Head CT 05/13/17 10:39 IMPRESSION: NORMAL BRAIN CT WITHOUT CONTRAST. EVIDENCE OF ACUTE STROKE: NO. Head MRI 05/13/17 11:11 IMPRESSION: Acute, nonhemorrhagic infarct left MCA distribution. EVIDENCE OF ACUTE STROKE: YES. LEFT MCA Carotid Doppler Study 05/13/17 13:01 IMPRESSION: NO HEMODYNAMICALLY SIGNIFICANT STENOSIS. Assessment & Plan - Diagnosis (1) Stroke Qualifiers: CVA mechanism: unspecified Qualified Code(s): I63.9 - Cerebral infarction, unspecified Is this a current diagnosis for this admission?: Yes Plan: Left MCA: Pt will continue on Aspirin. Will continue metoprolol, lisinopril, statin, and norvasc. (2) Congestive heart failure Qualifiers: Is this a current diagnosis for this admission?: Yes Plan: Chronic Systolic and Diastolic: Will continue current medications. (3) Diabetes type 2, uncontrolled Qualifiers: Diabetes mellitus complication status: with circulatory complication Is this a current diagnosis for this admission?: Yes Plan: Will check HgbA1C. Will add lantus 30 units at bedtime. Will continue SSI. (4) Hypertensive urgency Is this a current diagnosis for this admission?: Yes Plan: Will place pt on Lisinopril, norvasc, and metoprolol. Will monitor blood pressure closely. (5) Obesity Qualifiers: Obesity type: due to excess calories Is this a current diagnosis for this admission?: Yes Plan: Encourage dietary changes. (6) Sleep disorder breathing Is this a current diagnosis for this admission?: Yes Plan: Will arrange outpatient sleep study. (7) DVT prophylaxis Is this a current diagnosis for this admission?: Yes Plan: Lovenox. - Time Time Spent with patient: 15-24 minutes
--- NOTE | 2017-05-15 13:59 | RADIOLOGY REPORT (SQ) ---
EXAM DESCRIPTION: MRA HEAD WITHOUT COMPLETED DATE/TIME: 05/15/2017 1:40 pm REASON FOR STUDY: CVA COMPARISON: MRI brain 05/13/2017 CT brain 05/13/2017 TECHNIQUE: Axial 3-D [id number] acquisition imaging performed through the brain in the area of t he mo[place] of [place]. Images reformatted using 3-D MIPS. LIMITATIONS: None. FINDINGS: SOURCE IMAGES: No unexpected findings on source images. No large masses. 3-D MIP: On the left side, one of the anterior M2 branches of the middle cerebral artery exhibits singh dem high-grade stenoses and vessel irregularity worrisome for TR[employer] vasculitis this is in the vascular distribution of the patient's infarct on 05/13/2017. Findings discussed with Dr. Castellanos. Remainder of the mo[place] of [place] on re- projected images is otherwise unremarkable. No aneurysm. N o arteriovenous malformation. OTHER: No other significant finding. IMPRESSION: Abnormal anterior perisylvian M2 branch of the left MCA. Tandem high-grade stenoses and vessel irregularity is present worrisome for TR[employer] vasculitis. TECHNICAL DOCUMENTATION: JOB ID: [id number] [employer]- All Rights Reserved
[2017-05-15] MEDS ORDERED: INSULIN GLARGINE,HUM.REC.ANLOG 1,000 UNIT/10 ML UNIT SUBCUT SCH (22:00)
[2017-05-15] MEDS: METOPROLOL TARTRATE 25 MG TABLET PO SCH (23:47)
[2017-05-15] MEDS: ATORVASTATIN CALCIUM 80 MG TABLET PO SCH (23:48)
[2017-05-16 06:27] LABS: ABSOLUTE BASOPHILS # (AUTO) 0.1 10^3/uL (0.0-0.2); ABSOLUTE EOSINOPHILS # (AUTO) 0.2 10^3/uL (0.0-0.6); ABSOLUTE LYMPHOCYTES (AUTO) 2.9 10^3/uL (0.5-4.7); ABSOLUTE MONOCYTES (AUTO) 0.6 10^3/uL (0.1-1.4); ABSOLUTE NEUT (AUTO) 4.8 10^3/uL (1.7-8.2); BASOPHILS % (AUTO) 0.6 % (0-2); EOSINOPHILS % (AUTO) 2.6 % (0-6); HEMATOCRIT 38.5 % (36.0-47.0); HEMOGLOBIN 12.7 g/dL (12.0-15.5); HGB HCT DIFFERENCE -0.4; LYMPHOCYTES % (AUTO) 33.8 % (13-45); MEAN CORPUSCULAR HEMOGLOBIN 27.5 pg (27.0-33.4); MEAN CORPUSCULAR HGB CONC 33.1 g/dL (32.0-36.0); MEAN CORPUSCULAR VOLUME 83 fl (80-97); MONOCYTES % (AUTO) 6.6 % (3-13); RED BLOOD COUNT 4.62 10^6/uL (3.72-5.28); RED CELL DISTRIBUTION WIDTH 13.6 % (11.5-14.0); SEGMENTED NEUTROPHILS % (AUTO) 56.4 % (42-78); WHITE BLOOD COUNT 8.6 10^3/uL (4.0-10.5)
[2017-05-16 07:03] LABS: ANION GAP 12 (5-19); BLOOD UREA NITROGEN 20 mg/dL (7-20); CALCIUM 9.1 mg/dL (8.4-10.2); CARBON DIOXIDE 24 mmol/L (22-30); CHLORIDE 103 mmol/L (98-107); CHOLESTEROL 219.99 mg/dL (0-200); CREATININE RESULT 0.68 mg/dL (0.52-1.25); Direct HDL 52 mg/dL (>40); GLUCOSE 183 mg/dL (75-110); SODIUM 139.3 mmol/L (137-145); TRIGLYCERIDES 124 mg/dL (<150)
[2017-05-16 07:14] LABS: DIRECT LDL 143 mg/dL (<100)
[2017-05-16] MEDS ORDERED: LISINOPRIL 10 MG TABLET PO SCH (10:00)
[2017-05-16] MEDS: ASPIRIN 81 MG TABLET, CHEWABLE PO SCH (10:10)
[2017-05-16] MEDS: METOPROLOL TARTRATE 25 MG TABLET PO SCH ×2 (10:11→22:10)
[2017-05-16] MEDS: AMLODIPINE BESYLATE 10 MG TABLET PO SCH (10:11)
[2017-05-16] MEDS: ENOXAPARIN SODIUM INJ 40 MG/0.4 ML DISP.SYRIN SUBCUT SCH (10:12)
[2017-05-16] MEDS: INSULIN LISPRO 100 UNIT/ML 3 ML VIAL SUBCUT PRN (12:25)
[2017-05-16] MEDS ORDERED: INSULIN GLARGINE,HUM.REC.ANLOG 1,000 UNIT/10 ML UNIT SUBCUT SCH (14:01)
--- NOTE | 2017-05-16 14:16 | PDOC PROGRESS REPORT ---
Subjective Progress Note for:: 05/16/17 Subjective:: Pt states that she is doing ok today. Physical Exam Vital Signs: Temp Pulse Resp BP Pulse Ox 97.7 F 77 18 148/86 H 100 05/16/17 12:02 05/16/17 12:02 05/16/17 12:02 05/16/17 12:02 05/16/17 12:02 Intake & Output 05/15/17 05/16/17 05/17/17 06:59 06:59 06:59 Intake Total 1100 1743 Output Total 0 Balance 1100 1743 Weight 95 kg 92.8 kg General appearance: PRESENT: no acute distress, well-developed, well-nourished Head exam: PRESENT: atraumatic, normocephalic Eye exam: PRESENT: conjunctiva pink, EOMI. ABSENT: scleral icterus Ear exam: PRESENT: normal external ear exam Mouth exam: PRESENT: moist, tongue midline Neck exam: ABSENT: carotid bruit, JVD, lymphadenopathy, thyromegaly Respiratory exam: PRESENT: clear to auscultation ca. ABSENT: rales, rhonchi, wheezes Cardiovascular exam: PRESENT: RRR. ABSENT: diastolic murmur, rubs, systolic murmur Pulses: PRESENT: normal dorsalis pedis pul Vascular exam: PRESENT: normal capillary refill GI/Abdominal exam: PRESENT: normal bowel sounds, soft. ABSENT: distended, guarding, mass, organolmegaly, rebound, tenderness Rectal exam: PRESENT: deferred Extremities exam: PRESENT: full ROM. ABSENT: calf tenderness, clubbing, pedal edema Neurological exam: PRESENT: alert, awake, oriented to person, oriented to place , oriented to time, oriented to situation, aphasic. ABSENT: motor sensory deficit Psychiatric exam: PRESENT: appropriate affect, normal mood. ABSENT: homicidal ideation, suicidal ideation Skin exam: PRESENT: dry, intact, warm. ABSENT: cyanosis, rash Results Laboratory Results: 05/16/17 05:04 05/16/17 05:04 05/15/17 05/16/17 05/16/17 19:45 05:04 05:04 WBC 8.6 RBC 4.62 Hgb 12.7 Hct 38.5 MCV 83 MCH 27.5 MCHC 33.1 RDW 13.6 Plt Count 335 Seg Neutrophils % 56.4 Lymphocytes % 33.8 Monocytes % 6.6 Eosinophils % 2.6 Basophils % 0.6 Absolute Neutrophils 4.8 Absolute Lymphocytes 2.9 Absolute Monocytes 0.6 Absolute Eosinophils 0.2 Absolute Basophils 0.1 Sodium 139.3 Potassium 4.0 Chloride 103 Carbon Dioxide 24 Anion Gap 12 BUN 20 Creatinine 0.68 Est GFR ( Amer) > 60 Est GFR (Non-Af Amer) > 60 Glucose 183 H Calcium 9.1 C-Reactive Protein 10.1 H Triglycerides 124 Cholesterol 219.99 H LDL Cholesterol Direct 143 H VLDL Cholesterol 25.0 HDL Cholesterol 52 Impressions: Chest X-Ray 05/13/17 10:39 IMPRESSION: Cardiomegaly without failure. Head CT 05/13/17 10:39 IMPRESSION: NORMAL BRAIN CT WITHOUT CONTRAST. EVIDENCE OF ACUTE STROKE: NO. Head MRI 05/13/17 11:11 IMPRESSION: Acute, nonhemorrhagic infarct left MCA distribution. EVIDENCE OF ACUTE STROKE: YES. LEFT MCA Carotid Doppler Study 05/13/17 13:01 IMPRESSION: NO HEMODYNAMICALLY SIGNIFICANT STENOSIS. Brain MRI with MRA 05/15/17 00:00 IMPRESSION: Abnormal anterior perisylvian M2 branch of the left MCA. 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 Assessment & Plan - Diagnosis (1) Stroke Qualifiers: CVA mechanism: unspecified Qualified Code(s): I63.9 - Cerebral infarction, unspecified Is this a current diagnosis for this admission?: Yes Plan: Left MCA Concern for possible Vasculitis: Pt's ESR 71 and CRP 10.1. BOGDAN, Scl- 70 Scleroderma ab, Lupus anticoagulant. Pt will continue on Aspirin. Will continue metoprolol, lisinopril, statin, and norvasc. (2) Congestive heart failure Qualifiers: Is this a current diagnosis for this admission?: Yes Plan: Chronic Systolic and Diastolic: Will continue current medications. (3) Diabetes type 2, uncontrolled Qualifiers: Diabetes mellitus complication status: with circulatory complication Is this a current diagnosis for this admission?: Yes Plan: HgbA1C 9.9. Will add lantus 40 units at bedtime and Humalog 10 units SQ TID. Will continue SSI. (4) Hypertensive urgency Is this a current diagnosis for this admission?: Yes Plan: Will increase Lisinopril to 40 mg PO qdaly and add HCTZ 12.5 mg PO Qdaily. Will continue Metoprolol and Norvasc. (5) Vasculitis Is this a current diagnosis for this admission?: Yes Plan: Will continue vasculitis work up. (6) Obesity Qualifiers: Obesity type: due to excess calories Is this a current diagnosis for this admission?: Yes Plan: Encourage dietary changes. (7) Sleep disorder breathing Is this a current diagnosis for this admission?: Yes Plan: Will arrange outpatient sleep study. (8) DVT prophylaxis Is this a current diagnosis for this admission?: Yes Plan: Lovenox. - Time Time Spent with patient: 15-24 minutes
[2017-05-16] MEDS: INSULIN LISPRO 100 UNIT/ML 3 ML VIAL SUBCUT SCH (15:43)
[2017-05-16] MEDS: INSULIN GLARGINE,HUM.REC.ANLOG 300 UNIT/3 ML INSULN.PEN SUBCUT SCH (22:09)
[2017-05-16] MEDS: ATORVASTATIN CALCIUM 80 MG TABLET PO SCH (22:10)
[2017-05-17 06:18] LABS: ABSOLUTE EOSINOPHILS # (AUTO) 0.2 10^3/uL (0.0-0.6); ABSOLUTE LYMPHOCYTES (AUTO) 3.3 10^3/uL (0.5-4.7); ABSOLUTE MONOCYTES (AUTO) 0.4 10^3/uL (0.1-1.4); ABSOLUTE NEUT (AUTO) 5.3 10^3/uL (1.7-8.2); BASOPHILS % (AUTO) 0.5 % (0-2); EOSINOPHILS % (AUTO) 2.4 % (0-6); HEMATOCRIT 37.4 % (36.0-47.0); HEMOGLOBIN 12.7 g/dL (12.0-15.5); HGB HCT DIFFERENCE 0.7; LYMPHOCYTES % (AUTO) 35.7 % (13-45); MEAN CORPUSCULAR HEMOGLOBIN 28.2 pg (27.0-33.4); MEAN CORPUSCULAR HGB CONC 33.9 g/dL (32.0-36.0); MEAN CORPUSCULAR VOLUME 83 fl (80-97); MONOCYTES % (AUTO) 4.2 % (3-13); RED BLOOD COUNT 4.49 10^6/uL (3.72-5.28); RED CELL DISTRIBUTION WIDTH 13.8 % (11.5-14.0); SEGMENTED NEUTROPHILS % (AUTO) 57.2 % (42-78); WHITE BLOOD COUNT 9.3 10^3/uL (4.0-10.5)
[2017-05-17 06:43] LABS: ANION GAP 14 (5-19); BLOOD UREA NITROGEN 17 mg/dL (7-20); CALCIUM 9.6 mg/dL (8.4-10.2); CARBON DIOXIDE 24 mmol/L (22-30); CHLORIDE 104 mmol/L (98-107); CREATININE RESULT 0.64 mg/dL (0.52-1.25); GLUCOSE 137 mg/dL (75-110); SODIUM 142.2 mmol/L (137-145)
[2017-05-17] MEDS: INSULIN LISPRO 100 UNIT/ML 3 ML VIAL SUBCUT SCH ×3 (08:28→18:03)
[2017-05-17] MEDS: METOPROLOL TARTRATE 25 MG TABLET PO SCH ×2 (10:13→21:10)
[2017-05-17] MEDS: ENOXAPARIN SODIUM INJ 40 MG/0.4 ML DISP.SYRIN SUBCUT SCH (10:13)
[2017-05-17] MEDS: ASPIRIN 81 MG TABLET, CHEWABLE PO SCH (10:13)
[2017-05-17] MEDS: HYDROCHLOROTHIAZIDE 12.5 MG CAPSULE PO SCH (10:14)
[2017-05-17] MEDS: AMLODIPINE BESYLATE 10 MG TABLET PO SCH (10:14)
[2017-05-17] MEDS: LISINOPRIL 10 MG TABLET PO SCH (10:14)
[2017-05-17] MEDS: INSULIN LISPRO 100 UNIT/ML 3 ML VIAL SUBCUT PRN (12:30)
[2017-05-17] MEDS ORDERED: CLOPIDOGREL BISULFATE 300 MG TABLET PO ONE (15:22)
--- NOTE | 2017-05-17 15:22 | PDOC PROGRESS REPORT ---
Subjective Progress Note for:: 05/17/17 Subjective:: No issues. Physical Exam Vital Signs: Temp Pulse Resp BP Pulse Ox 97.5 F 75 19 138/77 H 99 05/17/17 12:08 05/17/17 12:08 05/17/17 12:08 05/17/17 12:08 05/17/17 12:08 Intake & Output 05/16/17 05/17/17 05/18/17 06:59 06:59 06:59 Intake Total 1743 1306 355 Output Total 0 Balance 1743 1306 355 Weight 92.8 kg 93 kg General appearance: PRESENT: no acute distress, well-developed, well-nourished Head exam: PRESENT: atraumatic, normocephalic Eye exam: PRESENT: conjunctiva pink, EOMI. ABSENT: scleral icterus Ear exam: PRESENT: normal external ear exam Mouth exam: PRESENT: moist, tongue midline Neck exam: ABSENT: carotid bruit, JVD, lymphadenopathy, thyromegaly Respiratory exam: PRESENT: clear to auscultation ac. ABSENT: rales, rhonchi, wheezes Cardiovascular exam: PRESENT: RRR. ABSENT: diastolic murmur, rubs, systolic murmur Pulses: PRESENT: normal dorsalis pedis pul Vascular exam: PRESENT: normal capillary refill GI/Abdominal exam: PRESENT: normal bowel sounds, soft. ABSENT: distended, guarding, mass, organolmegaly, rebound, tenderness Rectal exam: PRESENT: deferred Extremities exam: PRESENT: full ROM. ABSENT: calf tenderness, clubbing, pedal edema Neurological exam: PRESENT: alert, awake, oriented to person, oriented to place , oriented to time, oriented to situation, aphasic Psychiatric exam: PRESENT: appropriate affect, normal mood. ABSENT: homicidal ideation, suicidal ideation Skin exam: PRESENT: dry, intact, warm. ABSENT: cyanosis, rash Results Laboratory Results: 05/17/17 05:37 05/17/17 05:37 05/17/17 05/17/17 05:37 05:37 WBC 9.3 RBC 4.49 Hgb 12.7 Hct 37.4 MCV 83 MCH 28.2 MCHC 33.9 RDW 13.8 Plt Count 362 Seg Neutrophils % 57.2 Lymphocytes % 35.7 Monocytes % 4.2 Eosinophils % 2.4 Basophils % 0.5 Absolute Neutrophils 5.3 Absolute Lymphocytes 3.3 Absolute Monocytes 0.4 Absolute Eosinophils 0.2 Absolute Basophils 0.0 Sodium 142.2 Potassium 4.0 Chloride 104 Carbon Dioxide 24 Anion Gap 14 BUN 17 Creatinine 0.64 Est GFR ( Amer) > 60 Est GFR (Non-Af Amer) > 60 Glucose 137 H Calcium 9.6 Impressions: Chest X-Ray 05/13/17 10:39 IMPRESSION: Cardiomegaly without failure. Head CT 05/13/17 10:39 IMPRESSION: NORMAL BRAIN CT WITHOUT CONTRAST. EVIDENCE OF ACUTE STROKE: NO. Head MRI 05/13/17 11:11 IMPRESSION: Acute, nonhemorrhagic infarct left MCA distribution. EVIDENCE OF ACUTE STROKE: YES. LEFT MCA Carotid Doppler Study 05/13/17 13:01 IMPRESSION: NO HEMODYNAMICALLY SIGNIFICANT STENOSIS. Brain MRI with MRA 05/15/17 00:00 IMPRESSION: Abnormal anterior perisylvian M2 branch of the left MCA. Tandem high-grade stenoses and vessel irregularity is present worrisome for [employer] vasculitis. Assessment & Plan - Diagnosis (1) Stroke Qualifiers: CVA mechanism: unspecified Qualified Code(s): I63.9 - Cerebral infarction, unspecified Is this a current diagnosis for this admission?: Yes Plan: Left MCA Concern for possible Vasculitis: Pt's ESR 71 and CRP 10.1. BOGDAN, Scl- 70 Scleroderma ab, Lupus anticoagulant pending. Pt will continue on Aspirin and plavix. Pt states that she takes asa everyday regularly without missing a dose. Will continue metoprolol, lisinopril, statin, and norvasc. (2) Congestive heart failure Qualifiers: Is this a current diagnosis for this admission?: Yes Plan: Chronic Systolic and Diastolic: Will continue current medications. (3) Diabetes type 2, uncontrolled Qualifiers: Diabetes mellitus complication status: with circulatory complication Is this a current diagnosis for this admission?: Yes Plan: HgbA1C 9.9. Will continue lantus 40 units at bedtime and Humalog 10 units SQ TID. Will continue SSI. (4) Hypertensive urgency Is this a current diagnosis for this admission?: Yes Plan: Will continue Lisinopril 40 mg PO qdaly and HCTZ 12.5 mg PO Qdaily. Will continue Metoprolol and Norvasc. (5) Vasculitis Is this a current diagnosis for this admission?: Yes Plan: Will continue vasculitis work up. Will continue [facility] for recommendations and try to arrange outpatient appointment. (6) Obesity Qualifiers: Obesity type: due to excess calories Is this a current diagnosis for this admission?: Yes Plan: Encourage dietary changes. (7) Sleep disorder breathing Is this a current diagnosis for this admission?: Yes Plan: Will arrange outpatient sleep study. (8) DVT prophylaxis Is this a current diagnosis for this admission?: Yes Plan: Lovenox. - Time Time Spent with patient: Less than 15 minutes Anticipated discharge: Home
[2017-05-17] MEDS: ATORVASTATIN CALCIUM 80 MG TABLET PO SCH (21:10)
[2017-05-17] MEDS: INSULIN GLARGINE,HUM.REC.ANLOG 300 UNIT/3 ML INSULN.PEN SUBCUT SCH (21:14)
[2017-05-18] MEDS: INSULIN LISPRO 100 UNIT/ML 3 ML VIAL SUBCUT SCH ×2 (08:18→12:11)
[2017-05-18] MEDS: LISINOPRIL 10 MG TABLET PO SCH (09:32)
[2017-05-18] MEDS: METOPROLOL TARTRATE 25 MG TABLET PO SCH (09:33)
[2017-05-18] MEDS: AMLODIPINE BESYLATE 10 MG TABLET PO SCH (09:33)
[2017-05-18] MEDS: HYDROCHLOROTHIAZIDE 12.5 MG CAPSULE PO SCH (09:33)
[2017-05-18] MEDS: ASPIRIN 81 MG TABLET, CHEWABLE PO SCH (09:33)
[2017-05-18] MEDS: ENOXAPARIN SODIUM INJ 40 MG/0.4 ML DISP.SYRIN SUBCUT SCH (09:34)
[2017-05-18 11:38] LABS: JO-1 ANTIBODY (ANACOMP) <0.2 AI (0.0-0.9)
[2017-05-18 13:38] LABS: PTT-LA 27.9 sec (0.0-51.9); THROMBIN TIME 20.2 sec (0.0-23.0)
[2017-05-18 13:58] LABS: LUPUS PANEL INTERPRETATION Comment: (.)
[2017-05-18 15:33] VITALS: BP 152/82
--- NOTE | 2017-05-18 19:18 | PDOC DISCHARGE SUMMARY ---
General - Admit/Disc Date/PCP Admission Date/Primary Care Provider: 05/13/17 17:20 Discharge Date: 05/18/17 - Discharge Diagnosis (1) Stroke Is this a current diagnosis for this admission?: Yes Summary: Left MCA: Pt placed on aspirin and plavix. Pt will follow up with Dr. Trevino. (2) Congestive heart failure Is this a current diagnosis for this admission?: Yes Summary: Diastolic CHF: Will continue current medication. (3) Diabetes type 2, uncontrolled Is this a current diagnosis for this admission?: Yes Summary: Will continue Lantus and Humalog. (4) Hypertensive urgency Is this a current diagnosis for this admission?: Yes Summary: Will continue current meds. (5) Vasculitis Is this a current diagnosis for this admission?: Yes Summary: Pt is to follow up with Dr. Trevino. Dr. Trevino stated that it is most likely intracranial atherosclerosis. (6) Obesity Is this a current diagnosis for this admission?: Yes Summary: Encourage dietary changes. (7) Sleep disorder breathing Is this a current diagnosis for this admission?: Yes Summary: supportive care. - Additional Information Discharge Diet: Cardiac, Diabetic Discharge Activity: Activity As Tolerated Home Medications: Amlodipine Besylate [Norvasc 10 mg Tablet] 10 mg PO DAILY #30 tablet 05/18/17 Aspirin [Aspirin 81 mg Chewable Tablet] 81 mg PO DAILY tab.chew 05/18/17 Atorvastatin Calcium [Lipitor 80 mg Tablet] 80 mg PO QHS #30 tablet 05/18/17 Clopidogrel Bisulfate [Plavix 75 mg Tablet] 75 mg PO DAILY #30 tablet 05/18/17 Hydrochlorothiazide [Hydrodiuril 12.5 mg Capsule] 12.5 mg PO DAILY #30 capsule 05/18/17 Insulin Glargine,Hum.rec.anlog [Lantus Insulin 100 Unit/mL] 40 unit SUBCUT QHS # 1 insuln.pen 05/18/17 Insulin Lispro [Humalog Insulin (Lispro) 100 unit/mL] 10 unit SUBCUT AC #10 unit 05/18/17 Lisinopril [Prinivil 10 mg Tablet] 40 mg PO DAILY #30 tablet 05/18/17 Metoprolol Tartrate [Lopressor 25 mg Tablet] 12.5 mg PO Q12 #60 tablet 05/18/17 History of Present Illness Patient complains of: Inability to speak. History of Present Illness: PHILLIP DORANTES is a 46 year old female presented to the hospital with complaint of difficulty of speaking. Hospital Course Hospital Course: Pt was found to have Left MCA and MRA demonstrated high grade stenosis. Pt was placed on appropriate medication to help with BP control. There was concern for vasculitis but studies were pending. Dr. Trevino was contracted from [facility] who stated that it was most likely do to intracranial atherosclerosis. Pt's blood glucose was elevated and insulin was adjusted. Physical Exam Vital Signs: Temp Pulse Resp BP Pulse Ox 98.7 F 84 19 152/82 H 100 05/18/17 15:29 05/18/17 15:29 05/18/17 15:29 05/18/17 15:29 05/18/17 15:29 Intake & Output 05/17/17 05/18/17 05/19/17 06:59 06:59 06:59 Intake Total 1306 1049 650 Balance 1306 1049 650 Weight 93 kg 92.7 kg General appearance: PRESENT: no acute distress, well-developed, well-nourished Head exam: PRESENT: atraumatic, normocephalic Eye exam: PRESENT: conjunctiva pink, EOMI, PERRLA. ABSENT: scleral icterus Ear exam: PRESENT: normal external ear exam Mouth exam: PRESENT: moist, tongue midline Neck exam: ABSENT: carotid bruit, JVD, lymphadenopathy, thyromegaly Respiratory exam: PRESENT: clear to auscultation ac. ABSENT: rales, rhonchi, wheezes Cardiovascular exam: PRESENT: RRR. ABSENT: diastolic murmur, rubs, systolic murmur Pulses: PRESENT: normal dorsalis pedis pul Vascular exam: PRESENT: normal capillary refill GI/Abdominal exam: PRESENT: normal bowel sounds, soft. ABSENT: distended, guarding, mass, organolmegaly, rebound, tenderness Rectal exam: PRESENT: deferred Extremities exam: PRESENT: full ROM. ABSENT: calf tenderness, clubbing, pedal edema Musculoskeletal exam: PRESENT: full ROM Neurological exam: PRESENT: alert, awake, oriented to person, oriented to place , oriented to time, oriented to situation, CN II-XII grossly intact, aphasic. ABSENT: motor sensory deficit Psychiatric exam: PRESENT: appropriate affect, normal mood. ABSENT: homicidal ideation, suicidal ideation Skin exam: PRESENT: dry, intact, warm. ABSENT: cyanosis, rash Results Laboratory Results: 05/17/17 05:37 05/17/17 05:37 Impressions: Chest X-Ray 05/13/17 10:39 IMPRESSION: Cardiomegaly without failure. Head CT 05/13/17 10:39 IMPRESSION: NORMAL BRAIN CT WITHOUT CONTRAST. EVIDENCE OF ACUTE STROKE: NO. Head MRI 05/13/17 11:11 IMPRESSION: Acute, nonhemorrhagic infarct left MCA distribution. EVIDENCE OF ACUTE STROKE: YES. LEFT MCA Carotid Doppler Study 05/13/17 13:01 IMPRESSION: NO HEMODYNAMICALLY SIGNIFICANT STENOSIS. Brain MRI with MRA 05/15/17 00:00 IMPRESSION: Abnormal anterior perisylvian M2 branch of the left MCA. 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 Plan Time Spent: Greater than 30 Minutes
[2017-05-19] MEDS ORDERED: CLOPIDOGREL BISULFATE 75 MG TABLET PO SCH (10:00)
[2017-05-19 17:37] LABS: ANTIPROTEINASE 3 (PR-3) AB <3.5 U/mL (0.0-3.5); CYTOPLASMIC (C-ANCA) <1:20 titer (Neg:<1:20)
== END 2017-05-18 16:11 | disposition home health service (06) | DRG 65 ==
LOC: ER 10:38 → EH 14:10 → INTOOBSV 14:10 → 3W 16:13 → OBSVTOIN 17:20
PROVIDERS: ADMIT Emergency Medicine; ATTEND Emergency Medicine
PROC: 3E0234Z Introduction of Serum, Toxoid and Vaccine into Muscle, Percutaneous Approach (ICD-10-PCS; principal; 2017-05-18)
DX: I63.412 Cerebral infarction due to embolism of left middle cerebral artery (principal); I42.9 Cardiomyopathy, unspecified; I50.42 Chronic combined systolic (congestive) and diastolic (congestive) heart failure; I11.0 Hypertensive heart disease with heart failure; I16.0 Hypertensive urgency; E11.65 Type 2 diabetes mellitus with hyperglycemia; I77.6 Arteritis, unspecified; G47.33 Obstructive sleep apnea (adult) (pediatric); E87.6 Hypokalemia; R29.709 NIHSS score 9; E66.01 Morbid (severe) obesity due to excess calories; Z68.37 Body mass index [BMI] 37.0-37.9, adult; Z79.4 Long term (current) use of insulin; Z79.899 Other long term (current) drug therapy; Z23 Encounter for immunization
CPT/HCPCS: 36415; 70450; 70544; 70551; 71010; 80048; 80053; 80061; 82550; 82553; 82962; 83036; 83516; 83520; 84484; 85025; 85610; 85652; 85730; 86140; 86225; 86235; 86256; 90686; 93005; 93010; 93306; 93880; 96374; 99285; G0378; J1650; J1815; J3490

== ENCOUNTER 2017-08-30 18:29 | Emergency (ER) | payer MEDICAID, OTHER ==
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
--- NOTE | 2017-08-30 19:18 | RADIOLOGY REPORT (SQ) ---
EXAM DESCRIPTION: CT HEAD WITHOUT COMPLETED DATE/TIME: 08/30/2017 7:02 pm REASON FOR STUDY: AMS COMPARISON: 05/13/2017 TECHNIQUE: Axial images acquired through the brain without intravenous contrast. Images reviewed wi th bone, brain and subdural windows. Images stored on PACS. All CT scanners at this facility use dose modulation, iterative reconstruction, and/or weight based d osing when appropriate to reduce radiation dose to as low as reasonably achievable (ALARA). [facility]: Dose Right [facility]: CareDose [facility]: Dose Right [facility]: Teradose 4D [facility]: Smart [place] RADIATION DOSE: CT Rad equipment meets quality standard of care and radiation dose reduction techniq ues were employed. CTDIvol: 64.6 mGy. DLP: 1163 mGy-cm. mGy. LIMITATIONS: None. FINDINGS: VENTRICLES: Normal size and contour. CEREBRUM: No masses. No hemorrhage. No midline shift. No evidence for acute infarction. Old parnell hed infarct left frontal lobe. No areas of low density in the white matter. CEREBELLUM: No masses. No hemorrhage. No alteration of density. No evidence for acute infarction. EXTRAAXIAL SPACES: No fluid collections. No masses. ORBITS AND GLOBE: No intra- or extraconal masses. Normal contour of globe without masses. CALVARIUM: No fracture. PARANASAL SINUSES: No fluid or mucosal thickening. SOFT TISSUES: No mass or hematoma. OTHER: No other significant finding. IMPRESSION: No acute abnormality in the brain. EVIDENCE OF ACUTE STROKE: NO. COMMENT: Quality ID # [id number]: Final reports with documentation of one or more dose reduction techniques (e.g., Automated exposure control, adjustment of the mA and/or kV according to patient size, use of iterative reconstruction technique) TECHNICAL DOCUMENTATION: JOB ID: [id number] [employer]- All Rights Reserved Reading location - IP/workstation name: [email or web address]
[2017-08-30 19:52] LABS: ABSOLUTE BASOPHILS # (AUTO) 0.1 10^3/uL (0.0-0.2); ABSOLUTE EOSINOPHILS # (AUTO) 0.1 10^3/uL (0.0-0.6); ABSOLUTE LYMPHOCYTES (AUTO) 2.4 10^3/uL (0.5-4.7); ABSOLUTE MONOCYTES (AUTO) 0.5 10^3/uL (0.1-1.4); ABSOLUTE NEUT (AUTO) 8.1 10^3/uL (1.7-8.2); BASOPHILS % (AUTO) 0.6 % (0-2); HEMOGLOBIN 12.8 g/dL (12.0-15.5); LYMPHOCYTES % (AUTO) 21.5 % (13-45); MEAN CORPUSCULAR HEMOGLOBIN 27.7 pg (27.0-33.4); MEAN CORPUSCULAR HGB CONC 32.9 g/dL (32.0-36.0); MEAN CORPUSCULAR VOLUME 84 fl (80-97); MONOCYTES % (AUTO) 4.4 % (3-13); PLATELET COUNT 353 10^3/uL (150-450); RED BLOOD COUNT 4.62 10^6/uL (3.72-5.28); RED CELL DISTRIBUTION WIDTH 13.9 % (11.5-14.0); SEGMENTED NEUTROPHILS % (AUTO) 72.5 % (42-78); TOTAL CELLS COUNTED % (AUTO) 100 %; WHITE BLOOD COUNT 11.2 10^3/uL (4.0-10.5)
[2017-08-30 20:08] LABS: INTERNATIONAL RATION (INR) 0.92
[2017-08-30 20:19] LABS: ALANINE AMINOTRANSFERASE 23 U/L (9-52); ALBUMIN 4.6 g/dL (3.5-5.0); ALKALINE PHOSPHATASE 127 U/L (38-126); ANION GAP 13 (5-19); ASPARTATE AMINO TRANSFERASE 18 U/L (14-36); BILIRUBIN,DIRECT 0.2 mg/dL (0.0-0.4); BILIRUBIN,TOTAL 0.5 mg/dL (0.2-1.3); BLOOD UREA NITROGEN 12 mg/dL (7-20); CALCIUM 10.3 mg/dL (8.4-10.2); CARBON DIOXIDE 21 mmol/L (22-30); CHLORIDE 102 mmol/L (98-107); CREATINE KINASE 95 U/L (30-135); GLUCOSE 323 mg/dL (75-110); SODIUM 136.1 mmol/L (137-145); TOTAL PROTEIN 7.9 g/dL (6.3-8.2)
--- NOTE | 2017-08-30 20:20 | EKG REPORT ---
SEVERITY:- ABNORMAL ECG - SINUS TACHYCARDIA LEFT VENTRICULAR HYPERTROPHY BORDERLINE PROLONGED QT INTERVAL : Confirmed by: Marin Pulido MD 30-Aug-2017 20:19:54
[2017-08-30 20:31] LABS: CREATINE KINASE MB 0.83 ng/mL (<4.55)
[2017-08-30 20:36] LABS: TROPONIN I 0.164 ng/mL
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
[2017-08-30] MEDS ORDERED: HYDRALAZINE HCL INJ/PF 20 MG/1 ML SDV IV ONE (21:23)
[2017-08-30] MEDS ORDERED: FENTANYL CITRATE INJ/PF 100 MCG/2 ML AMPUL IV ONE (21:27)
[2017-08-30] MEDS ORDERED: NORMAL SALINE 1000 ML 1,000 ML IV ONE (21:28)
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
[2017-08-30 22:08] VITALS: BP 196/113
== END 2017-08-30 22:10 | disposition short-term general hospital (02) ==
LOC: ER 18:29
DX: M50.222 Other cervical disc displacement at C5-C6 level (principal); R79.89 Other specified abnormal findings of blood chemistry; R53.1 Weakness; R20.0 Anesthesia of skin; I16.0 Hypertensive urgency; E11.9 Type 2 diabetes mellitus without complications; I10 Essential (primary) hypertension; I50.9 Heart failure, unspecified
CPT/HCPCS: 93005; 99291; 96374; 96375; 36415; 82553; 82550; 83735; 85025; 85610; 80053; 84484; 72141; 71045; 70450; 93010; J3010; J0360

== ENCOUNTER 2018-08-05 20:08 | Emergency (ER) | payer SELFPAY ==
--- NOTE | 2018-08-05 21:08 | RADIOLOGY REPORT (SQ) ---
EXAM DESCRIPTION: XR CHEST 1 VIEW COMPLETED DATE/TME: 08/05/2018 20:22 CLINICAL HISTORY: 48 years, Female, DIFFICULTY BREATHING COMPARISON: None. NUMBER OF VIEWS: 1 TECHNIQUE: Portable chest LIMITATIONS: None. FINDINGS: Cardiomegaly. Lungs are clear. Electronic device projects over the left heart border. Lungs are clear. No pneumothorax IMPRESSION: Cardiomegaly. Lungs are clear copyright 2011 [employer]- All Rights Reserved
[2018-08-05 22:44] LABS: ABSOLUTE BASOPHILS # (AUTO) 0.1 10^3/uL (0.0-0.2); ABSOLUTE EOSINOPHILS # (AUTO) 0.1 10^3/uL (0.0-0.6); ABSOLUTE LYMPHOCYTES (AUTO) 3.5 10^3/uL (0.5-4.7); ABSOLUTE MONOCYTES (AUTO) 0.4 10^3/uL (0.1-1.4); ABSOLUTE NEUT (AUTO) 5.4 10^3/uL (1.7-8.2); BASOPHILS % (AUTO) 0.7 % (0-2); EOSINOPHILS % (AUTO) 0.9 % (0-6); HEMATOCRIT 37.2 % (36.0-47.0); HEMOGLOBIN 12.3 g/dL (12.0-15.5); LYMPHOCYTES % (AUTO) 36.9 % (13-45); MEAN CORPUSCULAR HEMOGLOBIN 27.5 pg (27.0-33.4); MEAN CORPUSCULAR HGB CONC 33.1 g/dL (32.0-36.0); MEAN CORPUSCULAR VOLUME 83 fl (80-97); MONOCYTES % (AUTO) 4.3 % (3-13); PLATELET COUNT 349 10^3/uL (150-450); RED BLOOD COUNT 4.48 10^6/uL (3.72-5.28); RED CELL DISTRIBUTION WIDTH 15.3 % (11.5-14.0); SEGMENTED NEUTROPHILS % (AUTO) 57.2 % (42-78); TOTAL CELLS COUNTED % (AUTO) 100 %; WHITE BLOOD COUNT 9.5 10^3/uL (4.0-10.5)
--- NOTE | 2018-08-05 22:55 | ER Document Report ---
ED General - General Chief Complaint: Breathing Difficulty Stated Complaint: DIFFICULTY BREATHING Time Seen by Provider: 08/05/18 22:53 Primary Care Provider: ZANDER BYERS MD [ACTIVE STAFF] - 08/09/18 Notes: Patient is a 48-year-old female who presents with complaint of difficulty breathing and not feeling well. She says that this happens every night. She says it has happened every night since she had her stent placed in August of last year. She went to [facility] where she had a stent placed. She is on clopidogrel. She says she is not follow-up with her doctor since. She says she is post pain medications for diabetes but does not member what they are and does not take them. Patient says that she never has any symptoms during the daytime and only occurs at night and it causes her not to be able to sleep. She currently denies any chest pain at this time, but says she has a burning sensation and points to her throat. No fevers. No vomiting. No other complaints at this time. TRAVEL OUTSIDE OF THE [place] IN LAST 30 DAYS: No - Related Data Allergies/Adverse Reactions: No Known Allergies Allergy (Verified 08/30/17 20:01) Past Medical History - Social History Smoking Status: Never Smoker Chew tobacco use (# tins/day): No Frequency of alcohol use: None Drug Abuse: None Family History: Reviewed & Not Pertinent Patient has suicidal ideation: No Patient has homicidal ideation: No - Past Medical History Cardiac Medical History: Reports: Hx Congestive Heart Failure, Hx Hypertension, Hx Heart Murmur Endocrine Medical History: Reports: Hx Diabetes Mellitus Type 2 Renal/ Medical History: Denies: Hx Peritoneal Dialysis Psychiatric Medical History: Denies: Hx Depression Past Surgical History: Reports: Hx Cardiac Catheterization - Immunizations Hx Diphtheria, Pertussis, Tetanus Vaccination: Yes Review of Systems - Review of Systems Notes: My Normal Review Basic REVIEW OF SYSTEMS: CONSTITUTIONAL : Denies fever, chills, or sweats. Denies recent illness. EENT: Denies eye, ear, throat, or mouth pain or symptoms. Denies nasal or sinus congestion. CARDIOVASCULAR: Denies chest pain. RESPIRATORY: Sensation of shortness of breath. GASTROINTESTINAL: Denies abdominal pain. Denies nausea, vomiting, or diarrhea. MUSCULOSKELETAL: Denies neck or back pain or joint pain or swelling. SKIN: Denies rash or skin lesions. NEUROLOGICAL: Denies altered mental status or loss of consciousness. Denies headache. Denies weakness or paralysis or loss of use of either side. Denies problems with gait or speech. Denies sensory or motor loss. ALL OTHER SYSTEMS REVIEWED AND NEGATIVE. Physical Exam - Vital signs Vitals: Temp Pulse Resp BP Pulse Ox 97.1 F 101 H 15 177/107 H 96 08/05/18 20:33 08/05/18 20:33 08/05/18 20:33 08/05/18 20:33 08/05/18 20:33 - Notes Notes: General Appearance: Well nourished, alert, cooperative, no acute distress, no obvious discomfort. Well-appearing. Vitals: reviewed, See vital signs table. Head: no swelling or tenderness to the head Eyes: PERRL, EOMI, Conjuctiva clear Mouth: No decreasd moisture Lungs: No wheezing, No rales, No rhonci, No accessory muscle use, good air e xchange bilaterally. Heart: Normal rate, Regular rythm, No murmur, no rub Abdomen: Normal BS, soft, No rigidity, No abdominal tenderness, No guarding, no rebound, no abdominal masses, no organomegaly Extremities: strength 5/5 in all extremities, good pulses in all extremities, no swelling or tenderness in the extremities, no edema. Skin: warm, dry, appropriate color, no rash Neuro: speech clear, oriented x 3, normal affect, responds appropriately to questions. Course - Re-evaluation Re-evalutation: 08/06/18 06:52 Was able to get old records from [facility]. The patient did not have a stent when she was there. She was evaluated by cardiology and they felt that her slight troponin bump was less likely related to an SC she did not have any associated chest pain. They did adjust some of her medications. Patient is very noncompliant. She has not been taking her medications. She initially told me that she has Plavix that she sometimes takes however she now tells me that she did not take this today. She says that she is basically out of all her medications as she has not followed up with her doctor since leaving [facility]. I have prescribed all 12 of her medications for her. I have referred her to our tsa screener, Dr. Byers. I talked her at length about the importance of taking her medications. Currently she does not have any evidence of a myocardial infarction; however, I informed her that if she does not take her medications and she is noncompliant then she will eventually have complications with her diabetes, high blood pressure, and potentially having SC. I strongly encouraged her return to ER if she has chest pain, recurrent difficulty breathing, or if she feels unwell. I do not think the symptoms of dyspnea at nighttime are related to an SC as patient has no associated chest pain and the symptoms only occur at night and have been ongoing for several months. Dictation of this chart was performed using voice recognition software; therefore, there may be some unintended grammatical errors. - Vital Signs Vital signs: Temp Pulse Resp BP Pulse Ox 97.2 F 101 H 24 H 190/110 H 99 08/06/18 05:00 08/05/18 20:33 08/06/18 05:00 08/06/18 05:00 08/06/18 05:00 - Laboratory Result Diagrams: 08/05/18 21:58 08/05/18 21:58 Laboratory results interpreted by me: 08/05/18 08/05/18 08/05/18 21:56 21:58 21:58 RDW 15.3 H Sodium 133.5 L Chloride 96 L Glucose 536 H* POC Glucose AST 61 H Alkaline Phosphatase 149 H Urine Protein 30 H Urine Glucose (UA) >=500 H Urine Blood SMALL H 08/06/18 08/06/18 01:47 04:10 RDW Sodium Chloride Glucose POC Glucose 400 H 348 H AST Alkaline Phosphatase Urine Protein Urine Glucose (UA) Urine Blood - EKG Interpretation by Me Additional EKG results interpreted by me: 08/05/18 22:54 EKG is reviewed and interpreted by me. EKG shows sinus rhythm with a rate of [address] segment elevation. Very mild ST segment depression in the lateral leads which is unchanged comparison to previous EKG from August 30, 2017. [place] interval, QRS duration are within normal range. QT interval is borderline. Discharge - Discharge Clinical Impression: Medical non-compliance Dyspnea Qualifiers: Dyspnea type: unspecified Qualified Code(s): R06.00 - Dyspnea, unspecified Condition: Good Disposition: HOME, SELF-CARE Additional Instructions: Today's workup looking at your heart today did not show any concerning abnormalities. I suspect your symptoms are related to the fact that you are not on your medications. Please get the prescriptions filled that I have written. These are the medications that you are discharged on when you left [facility] in August. I have referred you to the tsa screener, Dr. Beyrs. You should follow with a tsa screener. Please call his office Thursday morning to make a close follow-up appointment. Please have a low threshold to return to ER immediately if you have any chest pain, recurrent difficulty breathing, fevers, or if you feel that you are worsening in any way. Prescriptions: RX: Atorvastatin Calcium [Lipitor 80 mg Tablet] 80 mg PO QHS #30 tablet RX: Insulin Glargine,Hum.rec.anlog [Lantus Insulin 100 Unit/mL] 30 unit SUBCUT QHS #1 pen Aspirin [Aspirin 81 mg Chewable Tablet] 81 mg PO DAILY #30 tab.chew RX: Carvedilol [Coreg 25 mg Tablet] 1 tab PO Q12 #60 tab RX: Clopidogrel Bisulfate [Plavix 75 mg Tablet] 75 mg PO DAILY #30 tablet RX: Cyanocobalamin (Vitamin B-12) [Vitamin B-12 250 mcg Tablet] 125 mcg PO DAILY #30 tablet Insulin Lispro [Humalog Insulin 100 Unit/1 ml 3 ml Vial] 10 unit SUBCUT AC #10 ml RX: Isosorbide Mononitrate [Imdur 30 mg Tablet.er] 30 mg PO QAM #30 tab.er.24h Ranolazine [Ranexa 500 mg Tab.sr] 500 mg PO Q12 #60 tab.sr.12h Sacubitril/Valsartan [Entresto 49 mg/51 mg Tablet] 1 tab PO BID #60 tablet RX: Torsemide [Demadex 20 mg Tablet] 20 mg PO DAILY #30 tablet RX: Zolpidem Tartrate [Ambien 5 mg Tablet] 5 mg PO HSP PRN #20 tablet PRN Reason: difficulty sleeping Referrals: ZANDER BYERS MD [ACTIVE STAFF] - 08/09/18
[2018-08-05 23:02] LABS: ALANINE AMINOTRANSFERASE 52 U/L (9-52); ALKALINE PHOSPHATASE 149 U/L (38-126); ANION GAP 13 (5-19); ASPARTATE AMINO TRANSFERASE 61 U/L (14-36); BILIRUBIN,DIRECT 0.3 mg/dL (0.0-0.4); BILIRUBIN,TOTAL 0.9 mg/dL (0.2-1.3); BLOOD UREA NITROGEN 15 mg/dL (7-20); CALCIUM 9.6 mg/dL (8.4-10.2); CARBON DIOXIDE 25 mmol/L (22-30); CHLORIDE 96 mmol/L (98-107); POTASSIUM 4.9 mmol/L (3.6-5.0); SODIUM 133.5 mmol/L (137-145); TOTAL PROTEIN 6.9 g/dL (6.3-8.2)
[2018-08-05 23:09] LABS: APPEARANCE,URINE CLEAR; BILIRUBIN,URINE NEGATIVE (NEGATIVE); COLOR,URINE YELLOW; GLUCOSE, URINE >=500 mg/dL (NEGATIVE); KETONES,URINE NEGATIVE (NEGATIVE); LEUKOCYTE ESTERASE,URINE NEGATIVE (NEGATIVE); NITRITE,URINE NEGATIVE (NEGATIVE); PROTEIN,URINE 30 mg/dL (NEGATIVE); URINE SPECIFIC GRAVITY 1.039; UROBILINOGEN,URINE NEGATIVE mg/dL (<2.0)
[2018-08-05 23:21] LABS: GLUCOSE 536 mg/dL (75-110)
[2018-08-05] MEDS ORDERED: INSULIN GLARGINE,HUM.REC.ANLOG 1,000 UNIT/10 ML UNIT SUBCUT ONE (23:32)
[2018-08-05] MEDS ORDERED: INSULIN REG, HUMAN 100 UNIT/ML 3 ML VIAL (PYX) SUBCUT ONE (23:33)
[2018-08-06] MEDS ORDERED: INSULIN REG, HUMAN 100 UNIT/ML 3 ML VIAL (PYX) SUBCUT ONE (02:18)
[2018-08-06] MEDS ORDERED: METFORMIN HCL 500 MG TABLET PO ONE (04:15)
[2018-08-06] MEDS: METFORMIN HCL 500 MG TABLET PO ONE ×2 (04:16→04:19)
[2018-08-06] MEDS ORDERED: CLOPIDOGREL BISULFATE 75 MG TABLET PO ONE (04:52)
[2018-08-06] MEDS ORDERED: ISOSORBIDE MONONITRATE 60 MG TAB.ER.24H PO ONE (04:53)
[2018-08-06] MEDS ORDERED: ASPIRIN 81 MG TABLET, ENT COATED PO ONE (04:53)
[2018-08-06] MEDS ORDERED: RANOLAZINE 500 MG TAB.SR.12H PO ONE (04:54)
[2018-08-06] MEDS ORDERED: SACUBITRIL/VALSARTAN 49 MG/51 MG TABLET PO ONE (04:54)
[2018-08-06] MEDS ORDERED: TORSEMIDE 20 MG TABLET PO ONE (04:55)
[2018-08-06 06:34] VITALS: BP 190/110
--- NOTE | 2018-08-06 14:01 | EKG REPORT ---
SEVERITY:- ABNORMAL ECG - SINUS RHYTHM PROBABLE LEFT ATRIAL ABNORMALITY PROBABLE LEFT VENTRICULAR HYPERTROPHY BORDERLINE PROLONGED QT INTERVAL : Confirmed by: Virgil Webb 06-Aug-2018 14:00:26
== END 2018-08-06 05:45 | disposition home or self-care (01) ==
LOC: ER 20:08
DX: Z91.14 Patient's other noncompliance with medication regimen (principal); R06.00 Dyspnea, unspecified; I50.9 Heart failure, unspecified; I11.0 Hypertensive heart disease with heart failure; E11.9 Type 2 diabetes mellitus without complications
CPT/HCPCS: 93005; 99285; 36415; 82962; 85025; 80053; 81001; 84484; 71045; 93010; J1815 ×3

== ENCOUNTER 2018-08-22 15:10 | Inpatient (IN) | payer MEDICAID, OTHER ==
[2018-08-22] MEDS ORDERED: ONDANSETRON HCL INJ/PF 4 MG/2 ML SDV IV ONE (15:40)
--- NOTE | 2018-08-22 15:40 | ER Document Report ---
ED Medical Screen (RME) - General Chief Complaint: Abdominal Pain Stated Complaint: STOMACH PAIN Time Seen by Provider: 08/22/18 15:27 Notes: Patient is a 48-year-old female that presents to the emergency department for chief complaint of abdominal pain. Patient states his been having these pains on and off for some time, and having nausea, she is a poor historian and having difficult time conveying what is bothering her today. ROS: Other than noted above, the 12 point review of systems was reviewed with the patient and were negative, all pertinent findings are included in the HPI. PHYSICAL EXAMINATION: Vital signs reviewed. GENERAL: Obese female, appears uncomfortable. HEAD: Atraumatic, normocephalic. EYES: Pupils equal round extraocular movements intact, conjunctiva are normal. ENT: Nares patent NECK: Normal range of motion CV: Heart rate tachycardic LUNGS: No respiratory distress Musculoskeletal: Normal range of motion NEUROLOGICAL: Normal speech PSYCH: Normal mood, normal affect. MDM: Patient seen and examined for rapid initial assessment. Vital signs reviewed. A comprehensive ED assessment and evaluation of the patient, analysis of test results and completion of the medical decision making process will be conducted by additional ED providers. *Note is created using voice recognition software and may contain spelling, syntax or grammatical errors. TRAVEL OUTSIDE OF THE [place] IN LAST 30 DAYS: No - Related Data Allergies/Adverse Reactions: No Known Allergies Allergy (Verified 08/30/17 20:01) Past Medical History - Social History Frequency of alcohol use: None Drug Abuse: None - Past Medical History Cardiac Medical History: Reports: Hx Congestive Heart Failure, Hx Hypertension, Hx Heart Murmur Endocrine Medical History: Reports: Hx Diabetes Mellitus Type 2 Renal/ Medical History: Denies: Hx Peritoneal Dialysis Psychiatric Medical History: Denies: Hx Depression Past Surgical History: Reports: Hx Cardiac Catheterization - Immunizations Hx Diphtheria, Pertussis, Tetanus Vaccination: Yes History of Influenza Vaccine for 03/2017 - 08/2017 Season: No
[2018-08-22 16:53] LABS: ABSOLUTE BASOPHILS # (AUTO) 0.1 10^3/uL (0.0-0.2); ABSOLUTE EOSINOPHILS # (AUTO) 0.1 10^3/uL (0.0-0.6); ABSOLUTE MONOCYTES (AUTO) 0.5 10^3/uL (0.1-1.4); ABSOLUTE NEUT (AUTO) 3.6 10^3/uL (1.7-8.2); EOSINOPHILS % (AUTO) 0.9 % (0-6); HEMATOCRIT 36.8 % (36.0-47.0); HEMOGLOBIN 11.8 g/dL (12.0-15.5); LYMPHOCYTES % (AUTO) 31.7 % (13-45); MEAN CORPUSCULAR HEMOGLOBIN 26.3 pg (27.0-33.4); MEAN CORPUSCULAR HGB CONC 32.2 g/dL (32.0-36.0); MEAN CORPUSCULAR VOLUME 82 fl (80-97); MONOCYTES % (AUTO) 8.1 % (3-13); PLATELET COUNT 331 10^3/uL (150-450); RED CELL DISTRIBUTION WIDTH 14.8 % (11.5-14.0); SEGMENTED NEUTROPHILS % (AUTO) 58.3 % (42-78); TOTAL CELLS COUNTED % (AUTO) 100 %; WHITE BLOOD COUNT 6.2 10^3/uL (4.0-10.5)
[2018-08-22 16:54] LABS: VENOUS BLOOD BASE EXCESS 2.4 mmol/L; VENOUS BLOOD HCO3 27.6 mmol/L (20-32); VENOUS BLOOD PCO2 44.7 mmHg (35-63); VENOUS BLOOD PH 7.41 (7.30-7.42)
[2018-08-22 17:01] LABS: INTERNATIONAL RATION (INR) 0.97; PROTHROMBIN TIME 13.4 SEC (11.4-15.4)
[2018-08-22 17:08] LABS: ALANINE AMINOTRANSFERASE 89 U/L (9-52); ALBUMIN 3.7 g/dL (3.5-5.0); ALKALINE PHOSPHATASE 172 U/L (38-126); ANION GAP 12 (5-19); ASPARTATE AMINO TRANSFERASE 105 U/L (14-36); BILIRUBIN,DIRECT 0.6 mg/dL (0.0-0.4); BILIRUBIN,TOTAL 1.1 mg/dL (0.2-1.3); BLOOD UREA NITROGEN 12 mg/dL (7-20); CALCIUM 9.2 mg/dL (8.4-10.2); CARBON DIOXIDE 25 mmol/L (22-30); CHLORIDE 96 mmol/L (98-107); POTASSIUM 4.1 mmol/L (3.6-5.0); SODIUM 132.9 mmol/L (137-145); TOTAL PROTEIN 6.6 g/dL (6.3-8.2)
--- NOTE | 2018-08-22 17:09 | RADIOLOGY REPORT (SQ) ---
EXAM DESCRIPTION: CHEST SINGLE VIEW COMPLETED DATE/TIME: 08/22/2018 4:19 pm REASON FOR STUDY: shortness of breath COMPARISON: 08/05/2017 and earlier EXAM PARAMETERS: NUMBER OF VIEWS: One view. TECHNIQUE: Single frontal radiographic view of the chest acquired. RADIATION DOSE: NA LIMITATIONS: None. FINDINGS: LUNGS AND PLEURA: No opacities, masses or pneumothorax. No pleural effusion. MEDIASTINUM AND HILAR STRUCTURES: No masses. Contour normal. HEART AND VASCULAR STRUCTURES: Cardiac silhouette is unchanged in size. Central pulmonary vasculatur e is normal P BONES: No acute findings. HARDWARE: Unchanged positioning of the loop recorder projecting over the left hemithorax. OTHER: No other significant finding. IMPRESSION: NO ACUTE RADIOGRAPHIC FINDING IN THE CHEST. TECHNICAL DOCUMENTATION: JOB ID: [id number] [employer]- All Rights Reserved Reading location - IP/workstation name: [email or web address]
[2018-08-22 17:16] LABS: GLUCOSE 443 mg/dL (75-110)
[2018-08-22] MEDS ORDERED: NORMAL SALINE 1000 ML 1,000 ML IV ONE (19:25)
[2018-08-22] MEDS ORDERED: MORPHINE SULFATE 10 MG/ML INJ IV PRN ×2 (19:25→22:28)
[2018-08-22] MEDS ORDERED: METOCLOPRAMIDE HCL INJ/PF 10 MG/2 ML SDV IV ONE (19:25)
[2018-08-22] MEDS ORDERED: INSULIN REG, HUMAN 100 UNIT/ML 3 ML VIAL (PYX) IV ONE (19:26)
[2018-08-22] MEDS ORDERED: LISINOPRIL 10 MG TABLET PO ONE (19:26)
[2018-08-22 19:28] LABS: APPEARANCE,URINE CLEAR; BILIRUBIN,URINE NEGATIVE (NEGATIVE); COLOR,URINE YELLOW; GLUCOSE, URINE >=500 mg/dL (NEGATIVE); KETONES,URINE TRACE mg/dL (NEGATIVE); LEUKOCYTE ESTERASE,URINE NEGATIVE (NEGATIVE); NITRITE,URINE NEGATIVE (NEGATIVE); PROTEIN,URINE 100 mg/dL (NEGATIVE); URINE SPECIFIC GRAVITY 1.038; UROBILINOGEN,URINE NEGATIVE mg/dL (<2.0)
--- NOTE | 2018-08-22 19:28 | ER Document Report ---
ED General - General Chief Complaint: Abdominal Pain Stated Complaint: STOMACH PAIN Time Seen by Provider: 08/22/18 15:27 Cannot obtain history due to: Uncooperative Notes: Patient is a 48-year-old female with past medical history of essential hypertension, insulin-dependent type 2 diabetes, off all medications currently who presents with 2 weeks of generalized abdominal pain. Patient is an extraordinarily poor historian. Struggle to tell me exactly what is new or different today, why she came to the hospital, or characterize the nature of her symptoms. After some time the patient does clarify that her pain appears to be most localized to her epigastrium and right upper quadrant and that is worsened by eating. She does describe it as an aching, cramping pain. She denies melena, hematochezia or hematemesis. TRAVEL OUTSIDE OF THE [place] IN LAST 30 DAYS: No - Related Data Allergies/Adverse Reactions: No Known Allergies Allergy (Verified 08/30/17 20:01) Past Medical History - General Information source: Patient - Social History Smoking Status: Never Smoker Frequency of alcohol use: None Drug Abuse: None Family History: Reviewed & Not Pertinent Patient has suicidal ideation: No Patient has homicidal ideation: No - Past Medical History Cardiac Medical History: Reports: Hx Congestive Heart Failure, Hx Hypertension, Hx Heart Murmur Endocrine Medical History: Reports: Hx Diabetes Mellitus Type 2 Renal/ Medical History: Denies: Hx Peritoneal Dialysis Psychiatric Medical History: Denies: Hx Depression Past Surgical History: Reports: Hx Cardiac Catheterization - Immunizations Hx Diphtheria, Pertussis, Tetanus Vaccination: Yes Review of Systems - Review of Systems Notes: Constitutional: Negative for fever. HENT: Negative for sore throat. Eyes: Negative for visual changes. Cardiovascular: Negative for chest pain. Respiratory: Negative for shortness of breath. Gastrointestinal: Positive for abdominal pain nausea and vomiting Genitourinary: Negative for dysuria. Musculoskeletal: Negative for back pain. Skin: Negative for rash. Neurological: Negative for headaches, weakness or numbness. 10 point ROS negative except as marked above and in HPI. Physical Exam - Vital signs Vitals: Temp Pulse Resp BP Pulse Ox 97.5 F 110 H 20 194/119 H 98 08/22/18 17:04 08/22/18 17:04 08/22/18 17:04 08/22/18 17:04 08/22/18 17:04 Interpretation: Hypertensive, Tachycardic Notes: PHYSICAL EXAMINATION: GENERAL: Appears uncomfortable but in no acute distress HEAD: Atraumatic, normocephalic. EYES: Pupils equal round and reactive to light, extraocular movements intact, sclera anicteric, conjunctiva are normal. ENT: nares patent, oropharynx clear without exudates. Moderately dry mucous membranes. NECK: Normal range of motion, supple without lymphadenopathy LUNGS: Breath sounds clear to auscultation bilaterally and equal. No wheezes rales or rhonchi. HEART: Regular rate and rhythm without murmurs ABDOMEN: Soft, mild diffuse tenderness, normoactive bowel sounds. No guarding, no rebound. No masses appreciated. EXTREMITIES: Normal range of motion, no pitting or edema. No cyanosis. NEUROLOGICAL: No focal neurological deficits. Moves all extremities spontaneously and on command. PSYCH: Normal mood, normal affect. SKIN: Warm, Dry, normal turgor, no rashes or lesions noted. Course - Re-evaluation Re-evalutation: 08/22/18 19:27 Patient presents with generalized abdominal pain, stress to tell me exactly how long this is been going on states it has the patient describes it as a generalized abdominal discomfort. On exam she does appear uncomfortable, mildly pale, rocking back and forth in the bed. No focal abdominal tenderness on exam. No areas of rebound or guarding. No prior abdominal surgical history. Vitals are initially notable for tachycardia as well as market hypertension. Patient is not taking any of her medications currently seen that she cannot afford them. This does include all of her blood pressure medications as well as her insulin. Will proceed with CT scan of the abdomen and pelvis given her degree of blood pressure elevation and diffuse nature of her abdominal pain as well as ill appearance to evaluate for any evidence of abdominal aortic dissection, bowel perforation or rupture, less likely biliary pathology or acute appendicitis. Patient is noted to have a moderate troponin elevation, similar to troponin elevations she has had many times in the past and I do suspect that this is rela vikki to her elevated blood pressure. She denies chest pain or shortness of breath. EKG without ischemic changes. Repeat pending. 08/22/18 21:[address] appears to show acute cholecystitis with pericholecystic fluid and a thickened gallbladder wall. I did discuss this with the surgeon on-call who feels that this to be primarily a medicine admission with surgery consultation. He will discussed directly with the hospitalist. Patient's blood sugar has moderately improved after 8 units of subcutaneous insulin. Blood pressure moderately improved after 20 oral lisinopril. Awaiting determination of which service will admit this patient. - Vital Signs Vital signs: Temp Pulse Resp BP Pulse Ox 97.5 F 110 H 11 L 165/100 H 96 08/22/18 17:04 08/22/18 17:04 08/23/18 03:15 08/23/18 03:15 08/23/18 03:15 - Laboratory Result Diagrams: 08/23/18 02:24 08/23/18 02:24 Laboratory results interpreted by me: 08/22/18 08/22/18 08/22/18 16:00 16:00 19:08 Hgb 11.8 L MCH 26.3 L RDW 14.8 H Sodium 132.9 L Chloride 96 L Glucose 443 H* POC Glucose Direct Bilirubin 0.6 H AST 105 H ALT 89 H Alkaline Phosphatase 172 H Urine Protein 100 H Urine Glucose (UA) >=500 H Urine Ketones TRACE H Urine Blood SMALL H 08/22/18 08/22/18 20:11 20:52 Hgb MCH RDW Sodium Chloride Glucose POC Glucose 358 H 347 H Direct Bilirubin AST ALT Alkaline Phosphatase Urine Protein Urine Glucose (UA) Urine Ketones Urine Blood - Diagnostic Test Radiology reviewed: Reports reviewed Discharge - Discharge Clinical Impression: Acute cholecystitis, Diabetes mellitus type 2 in obese, Hypertensive emergency without congestive heart failure Condition: Fair Disposition: ADMITTED INPATIENT Admitting Provider: Hospitalist Unit Admitted: Telemetry
--- NOTE | 2018-08-22 21:29 | RADIOLOGY REPORT (SQ) ---
EXAM DESCRIPTION: CT ABDOMEN PELVIS WITH IV CONTRAST COMPLETED DATE/TME: 08/22/2018 19:24 CLINICAL HISTORY: 48 years, Female, diffuse abdominal pain, elevated bp COMPARISON: None. TECHNIQUE: 434 Images stored on PACS. All CT scanners at this facility use dose modulation, iterative reconstruction, and/or weight based dosing when appropriate to reduce radiation dose to as low as reasonably achievable (ALARA). [facility]: Dose Right [facility]: CareDose [facility]: Dose Right [facility]: Teradose 4D [facility]: [employer] LIMITATIONS: None. FINDINGS: Limited evaluation of the lung bases is unremarkable. Osseous structures are grossly intact. Diffuse fatty infiltrative change to the liver. The spleen, adrenal glands, pancreas, right kidney are unremarkable. Simple appearing left renal cyst measuring 2.7 x 1.9 cm. Gallbladder is slightly contracted, however there is subjective gallbladder wall thickening and pericholecystic fluid with minor surrounding inflammation. Correlate for the possibility of acute cholecystitis. No gross evidence for bowel obstruction. Abundant stool in the colon. No free air or free fluid. Normal appendix. IMPRESSION: Abnormal appearance to the gallbladder, suspicious for cholecystitis. Correlate with history and patient exam. Fatty infiltrative change to the liver. Simple left renal cyst TECHNICAL DOCUMENTATION: Quality ID # [id number]: Final reports with documentation of one or more dose reduction techniques (e.g., Automated exposure control, adjustment of the mA and/or kV according to patient size, use of iterative reconstruction technique) copyright 2010 [employer]- All Rights Reserved
[2018-08-22] MEDS ORDERED: MAGNESIUM HYDROXIDE SUSP 30 ML UDCUP PO PRN (22:19)
[2018-08-22] MEDS ORDERED: MAG HYDROX/AL HYDROX/SIMETH SUSP 30 ML UDCUP PO PRN (22:19)
[2018-08-22] MEDS ORDERED: ONDANSETRON HCL INJ/PF 4 MG/2 ML SDV IV PRN (22:19)
[2018-08-22] MEDS ORDERED: DEXTROSE 50%-WATER 25 GM/50 ML DISP.SYRIN IV PRN ×2 (22:26)
[2018-08-22] MEDS ORDERED: DEXTROSE 40% GEL 15 GM TUBE PO PRN ×2 (22:26)
[2018-08-22] MEDS ORDERED: GLUCAGON,HUMAN RECOMB 1 MG INJ IM PRN (22:26)
[2018-08-22] MEDS ORDERED: LABETALOL HCL INJ 20 MG/4 ML DISP.SYRIN IV PRN (22:28)
[2018-08-22] MEDS ORDERED: ACETAMINOPHEN 650 MG SUPP.RECT PR PRN (22:28)
[2018-08-22] MEDS ORDERED: ACETAMINOPHEN 325 MG TABLET PO PRN (22:28)
[2018-08-22] MEDS ORDERED: NICOTINE 21 MG/24 HR PATCH.TD24 TD PRN (22:28)
--- NOTE | 2018-08-22 22:32 | EKG REPORT ---
SEVERITY:- ABNORMAL ECG - SINUS TACHYCARDIA LVH WITH SECONDARY REPOLARIZATION ABNORMALITY : Confirmed by: Marin Pulido MD 22-Aug-2018 22:31:41
[2018-08-22] MEDS ORDERED: INSULIN GLARGINE,HUM.REC.ANLOG 300 UNIT/3 ML INSULN.PEN SUBCUT ONE ×2 (23:53→23:59)
[2018-08-22] MEDS ORDERED: SUCRALFATE SUSP 1 GM/10 ML UDCUP PO ONE (23:59)
[2018-08-22] MEDS ORDERED: PANTOPRAZOLE SODIUM 40 MG VIAL IV ONE (23:59)
[2018-08-23] MEDS ORDERED: PIPERACILLIN/TAZOBACTAM 3.375 GM VIAL IV PRN
[2018-08-23] MEDS ORDERED: SUCRALFATE SUSP 1 GM/10 ML UDCUP PO ONE (00:15)
[2018-08-23] MEDS: PIPERACILLIN SODIUM/TAZOBACTAM 3.375 GM in NORMAL SALINE 100 ML IV SCH ×5 (01:02→23:05)
[2018-08-23 02:33] LABS: ABSOLUTE BASOPHILS # (AUTO) 0.1 10^3/uL (0.0-0.2); ABSOLUTE LYMPHOCYTES (AUTO) 1.2 10^3/uL (0.5-4.7); ABSOLUTE MONOCYTES (AUTO) 0.5 10^3/uL (0.1-1.4); ABSOLUTE NEUT (AUTO) 4.8 10^3/uL (1.7-8.2); BASOPHILS % (AUTO) 0.9 % (0-2); EOSINOPHILS % (AUTO) 0.3 % (0-6); HEMATOCRIT 34.8 % (36.0-47.0); HEMOGLOBIN 11.4 g/dL (12.0-15.5); LYMPHOCYTES % (AUTO) 18.6 % (13-45); MEAN CORPUSCULAR HEMOGLOBIN 26.3 pg (27.0-33.4); MEAN CORPUSCULAR HGB CONC 32.6 g/dL (32.0-36.0); MEAN CORPUSCULAR VOLUME 81 fl (80-97); MONOCYTES % (AUTO) 6.9 % (3-13); PLATELET COUNT 262 10^3/uL (150-450); RED BLOOD COUNT 4.31 10^6/uL (3.72-5.28); RED CELL DISTRIBUTION WIDTH 15.1 % (11.5-14.0); SEGMENTED NEUTROPHILS % (AUTO) 73.3 % (42-78); TOTAL CELLS COUNTED % (AUTO) 100 %; WHITE BLOOD COUNT 6.5 10^3/uL (4.0-10.5)
--- NOTE | 2018-08-23 02:38 | PDOC H&P ---
History of Present Illness Admission Date/PCP: 08/22/2018 No PCP Patient complains of: Abdominal pain with nausea and vomiting History of Present Illness: PHILLIP DORANTES is a 48 year old female who presented to the emergency room with a 2-week history of abdominal pain. She admits that she began having abdominal pain 2 weeks prior to her emergency room visit that was initially just a moderate colicky pain lasting for 30-60 minutes at a time and occurring once or twice a day. Over the course of the last 2 weeks the pain has gradually worsened to the point where it is now an intermittant, nonradiating, severe, colicky pain in the epigastric region of her abdomen, lasting for 2 or more hours, occurring 2 or 3 times a day and generally occurring within 30-60 minutes of ingestion of food. Over the last 2 days patient has developed nausea and vomiting associated with the pain and has been unable to keep down any solids or fluids. She denies prior similar episodes and has not identified any other aggravating or ameliorating factors for her abdominal pain. She further admits a history of diabetes hypertension and coronary artery disease for which she is supposed to be taking medications but she discontinued these several months ago. In the emergency room she was found to be severely hypertensive, hyperglycemic and dehydrated. A CT scan of the abdomen revealed acute cholecystitis. She was treated with IV fluids and given antiemetics, analgesics and antihypertensives. She was also given insulin for her hyperglycemia and was subsequently admitted to the hospital for further evaluation and treatment. Past Medical History Cardiac Medical History: Reports: Congestive Heart Failure, Coronary Artery Disease, Hyperlipidema, Hypertension, Heart Murmur Pulmonary Medical History: Denies: Asthma, Chronic Obstructive Pulmonary Disease (COPD), Respiratory Failure EENT Medical History: Reports: None Neurological Medical History: Denies: Hemorrhagic CVA, Ischemic CVA, Multiple Sclerosis, Seizures Endocrine Medical History: Reports: Diabetes Mellitus Type 2, Obesity Denies: Diabetes Mellitus Type 1, Hyperthyroidism, Hypothyroidism Renal/ Medical History: Denies: Chronic Kidney Disease, Nephrolithiasis Malignancy Medical History: Reports: None GI Medical History: Denies: Cirrhosis, Hepatitis Musculoskeltal Medical History: Denies: Arthritis, Gout Skin Medical History: Denies: Eczema, Psoriasis Psychiatric Medical History: Denies: Alcohol Dependency, Depression, Substance Abuse, Tobacco Dependency Traumatic Medical History: Reports: None Hematology: Denies: Anemia, Bleeding Tendencies Infectious Medical History: Reports: None Past Surgical History Past Surgical History: Reports: Cardiac Catheterization, Coronary Stent Social History Information Source: Patient Lives with: Family Smoking Status: Never Smoker Frequency of Alcohol Use: None Hx Recreational Drug Use: No Drugs: None Hx Prescription Drug Abuse: No - Advance Directive Resuscitation Status: Full Code Surrogate healthcare decision maker:: Her son Ten Family History Family History: None - Unable to review: See note Family History: Patient has not been in contact with her family for years and is unaware of any family member's medical history. Parental Family History Reviewed: No Children Family History Reviewed: No Sibling(s) Family History Reviewed.: No Medication/Allergy Home Medications: Amlodipine Besylate [Norvasc 10 mg Tablet] 10 mg PO DAILY #30 tablet 05/18/17 Aspirin [Aspirin 81 mg Chewable Tablet] 81 mg PO DAILY tab.chew 05/18/17 Atorvastatin Calcium [Lipitor 80 mg Tablet] 80 mg PO QHS #30 tablet 05/18/17 Clopidogrel Bisulfate [Plavix 75 mg Tablet] 75 mg PO DAILY #30 tablet 05/18/17 Hydrochlorothiazide [Hydrodiuril 12.5 mg Tablet] 12.5 mg PO DAILY #30 capsule 05/18/17 Insulin Glargine,Hum.rec.anlog [Lantus Insulin 100 Unit/mL] 40 unit SUBCUT QHS #1 insuln.pen 05/18/17 Insulin Lispro [Humalog Insulin (Lispro) 100 unit/mL] 10 unit SUBCUT AC #10 unit 05/18/17 Lisinopril [Prinivil 10 mg Tablet] 40 mg PO DAILY #30 tablet 05/18/17 Metoprolol Tartrate [Lopressor 25 mg Tablet] 12.5 mg PO Q12 #60 tablet 05/18/17 Aspirin [Aspirin 81 mg Chewable Tablet] 81 mg PO DAILY #30 tab.chew 08/06/18 Atorvastatin Calcium [Lipitor 80 mg Tablet] 80 mg PO QHS #30 tablet 08/06/18 Carvedilol [Coreg 25 mg Tablet] 1 tab PO Q12 #60 tab 08/06/18 Clopidogrel Bisulfate [Plavix 75 mg Tablet] 75 mg PO DAILY #30 tablet 08/06/18 Cyanocobalamin (Vitamin B-12) [Vitamin B-12 250 mcg Tablet] 125 mcg PO DAILY #30 tablet 08/06/18 Insulin Glargine,Hum.rec.anlog [Lantus Insulin 100 Unit/mL] 30 unit SUBCUT QHS #1 pen 08/06/18 Insulin Lispro [Humalog Insulin 100 Unit/1 ml 3 ml Vial] 10 unit SUBCUT AC #10 ml 08/06/18 Isosorbide Mononitrate [Imdur 30 mg Tablet.er] 30 mg PO QAM #30 tab.er.24h 08/06/18 Ranolazine [Ranexa 500 mg Tab.sr] 500 mg PO Q12 #60 tab.sr.12h 08/06/18 Sacubitril/Valsartan [Entresto 49 mg/51 mg Tablet] 1 tab PO BID #60 tablet 08/06/18 Torsemide [Demadex 20 mg Tablet] 20 mg PO DAILY #30 tablet 08/06/18 Zolpidem Tartrate [Ambien 5 mg Tablet] 5 mg PO HSP PRN #20 tablet 08/06/18 Allergies/Adverse Reactions: No Known Allergies Allergy (Verified 08/30/17 20:01) Review of Systems Constitutional: ABSENT: chills, fever(s) Eyes: ABSENT: visual disturbances, other - Eye pain Ears: ABSENT: hearing changes, other - Ear pain Nose, Mouth, and Throat: ABSENT: mouth pain, sore throat Cardiovascular: ABSENT: chest pain, dyspnea on exertion, edema, orthropnea, palpitations Respiratory: ABSENT: cough, dyspnea Gastrointestinal: PRESENT: as per HPI, abdominal pain, nausea, vomiting. ABSENT: constipation, diarrhea Genitourinary: ABSENT: dysuria, hematuria Musculoskeletal: ABSENT: back pain, deformity, joint swelling Integumentary: ABSENT: pruritus, rash Neurological: ABSENT: confusion, convulsions, focal weakness, memory loss Psychiatric: ABSENT: anxiety, depression Endocrine: ABSENT: cold intolerance, heat intolerance Hematologic/Lymphatic: ABSENT: easy bleeding, easy bruising Physical Exam Vital Signs: Temp Pulse Resp BP Pulse Ox 97.5 F 110 H 22 H 198/127 H 96 08/22/18 17:04 08/22/18 17:04 08/22/18 21:01 08/22/18 21:01 08/22/18 22:00 Intake & Output 08/20/18 08/21/18 08/22/18 23:59 23:59 23:59 Weight 89.8 kg General appearance: PRESENT: no acute distress, cooperative, obese Head exam: PRESENT: atraumatic, normocephalic Eye exam: PRESENT: conjunctiva pink, EOMI. ABSENT: scleral icterus Ear exam: PRESENT: normal external ear exam. ABSENT: bleeding, drainage Mouth exam: PRESENT: dry mucosa, neck supple Neck exam: ABSENT: JVD, thyromegaly, tracheal deviation Respiratory exam: PRESENT: clear to auscultation ac, symmetrical, unlabored Cardiovascular exam: PRESENT: RRR. ABSENT: clicks, gallop, rubs Pulses: PRESENT: normal radial pulses, normal dorsalis pedis pul Vascular exam: PRESENT: normal capillary refill. ABSENT: pallor GI/Abdominal exam: PRESENT: Rojas's sign, normal bowel sounds, soft, tenderness - Moderate epigastric and right upper quadrant tenderness on deep palpation. Rectal exam: PRESENT: deferred Extremities exam: ABSENT: joint swelling, pedal edema, tenderness Musculoskeletal exam: PRESENT: full ROM, normal inspection. ABSENT: tenderness Neurological exam: PRESENT: alert, awake, oriented to person, oriented to place, oriented to time, oriented to situation, CN II-XII grossly intact. ABSENT: motor sensory deficit Psychiatric exam: PRESENT: appropriate affect, normal mood Skin exam: PRESENT: dry, intact, warm. ABSENT: jaundice, rash, urticaria Results Laboratory Results: 08/22/18 16:00 08/22/18 16:00 08/22/18 08/22/18 08/22/18 16:00 16:00 16:00 WBC 6.2 RBC 4.50 Hgb 11.8 L Hct 36.8 MCV 82 MCH 26.3 L MCHC 32.2 RDW 14.8 H Plt Count 331 Seg Neutrophils % 58.3 Lymphocytes % 31.7 Monocytes % 8.1 Eosinophils % 0.9 Basophils % 1.0 Absolute Neutrophils 3.6 Absolute Lymphocytes 2.0 Absolute Monocytes 0.5 Absolute Eosinophils 0.1 Absolute Basophils 0.1 VBG pH VBG pCO2 VBG HCO3 VBG Base Excess Sodium 132.9 L Potassium 4.1 Chloride 96 L Carbon Dioxide 25 Anion Gap 12 BUN 12 Creatinine 0.66 Est GFR ( Amer) > 60 Est GFR (Non-Af Amer) > 60 Glucose 443 H* Lactic Acid 1.9 Calcium 9.2 Total Bilirubin 1.1 AST 105 H ALT 89 H Alkaline Phosphatase 172 H Total Protein 6.6 Albumin 3.7 Urine Color Urine Appearance Urine pH Ur Specific [place] Urine Protein Urine Glucose (UA) Urine Ketones Urine Blood Urine Nitrite Ur Leukocyte Esterase Urine WBC (Auto) Urine RBC (Auto) 08/22/18 08/22/18 16:00 19:08 WBC RBC Hgb Hct MCV MCH MCHC RDW Plt Count Seg Neutrophils % Lymphocytes % Monocytes % Eosinophils % Basophils % Absolute Neutrophils Absolute Lymphocytes Absolute Monocytes Absolute Eosinophils Absolute Basophils VBG pH 7.41 VBG pCO2 44.7 VBG HCO3 27.6 VBG Base Excess 2.4 Sodium Potassium Chloride Carbon Dioxide Anion Gap BUN Creatinine Est GFR ( Amer) Est GFR (Non-Af Amer) Glucose Lactic Acid Calcium Total Bilirubin AST ALT Alkaline Phosphatase Total Protein Albumin Urine Color YELLOW Urine Appearance CLEAR Urine pH 6.0 Ur Specific [place] 1.038 Urine Protein 100 H Urine Glucose (UA) >=500 H Urine Ketones TRACE H Urine Blood SMALL H Urine Nitrite NEGATIVE Ur Leukocyte Esterase NEGATIVE Urine WBC (Auto) 2 Urine RBC (Auto) 1 08/22/18 08/22/18 16:00 20:28 Troponin I 0.044 0.037 Impressions: Chest X-Ray 08/22/18 15:40 IMPRESSION: NO ACUTE RADIOGRAPHIC FINDING IN THE CHEST. Abdomen/Pelvis CT 08/22/18 19:24 IMPRESSION: Abnormal appearance to the gallbladder, suspicious for cholecystitis. Correlate with history and patient exam. Fatty infiltrative change to the liver. Simple left renal cyst TECHNICAL DOCUMENTATION: Quality ID # [id number]: Final reports with documentation of one or more dose reduction techniques (e.g., Automated exposure control, adjustment of the mA and/or kV according to patient size, use of iterative reconstruction technique) copyright 2011 [employer]- All Rights Reserved Assessment & Plan - Diagnosis (1) Hypertensive emergency without congestive heart failure Is this a current diagnosis for this admission?: Yes Plan: Patient's hypertensive emergency was treated initially in the emergency room and subsequently is being managed with labetalol 20 mg IV every 15 minutes as needed to maintain a systolic blood pressure less than 160 and a diastolic pressure less than 90. Further intervention will be undertaken as necessary. Serial cardiac enzymes will be obtained to evaluate for potential secondary myocardial injury. (2) Diabetes mellitus type 2 in obese Is this a current diagnosis for this admission?: Yes Plan: Patient will be started on a diabetic diet as well as initiation of diabetic therapy in line with her previous therapeutic dosage of Lantus and regular insulin. Her dosages will be adjusted as required. Hemoglobin A1c will be obtained and blood sugars will be performed before meals and at bedtime with sliding scale insulin for hyperglycemic coverage. (3) Acute cholecystitis Is this a current diagnosis for this admission?: Yes Plan: The patient's acute cholecystitis will be managed by obtaining a surgical consultation. Once patient is medically stable she should most likely have a cholecystectomy performed as soon as possible. She will have a daily CBC, metabolic profile and magnesium levels performed with additional evaluation of her pancreatic and hepatic functions as appropriate. The patient's abdominal pain will be treated with morphine sulfate 2-4 mg IV every 2 hours per sliding scale dosage. (4) Coronary artery disease Qualifiers: Coronary Disease-Associated Artery/Lesion type: [place] artery [place] vs. transplanted heart: [place] heart Associated angina: angina presence unspecified Qualified Code(s): I25.10 - Atherosclerotic heart disease of [place] coronary artery without angina pectoris Is this a current diagnosis for this admission?: Yes Plan: Patient is noted to be on Ranexa which should be restarted once she is able to tolerate an oral diet and oral medications. Additionally she will need to be returned to her other cardiac/antihypertensive medications as appropriate. In the interim patient will be treated with IV labetalol to control her hypertension and she will receive nitroglycerin as needed for chest pain and will also use a sliding scale dosed morphine sulfate 2-4 mg IV every 2 hours as needed for chest pain not responding to nitroglycerin. (5) Congestive heart failure Qualifiers: Heart failure type: combined systolic and diastolic Heart failure chronicity: chronic Qualified Code(s): I50.42 - Chronic combined systolic ( congestive) and diastolic (congestive) heart failure Is this a current diagnosis for this admission?: Yes Plan: Patient will be restarted on her cardiac medications and antihypertensive medications as soon as she is able to tolerate an oral diet. Medications will be adjusted as appropriate and may be restarted in a staggered fashion. A BNP will be obtained to value patient's cardiac status. (6) Hypertension Qualifiers: Hypertension type: essential hypertension Qualified Code(s): I10 - Essential (primary) hypertension Is this a current diagnosis for this admission?: Yes Plan: Patient be restarted on her antihypertensives as soon as she is able to tolerate oral diet. In the interim the patient's blood pressure is being treated with IV labetalol as previously described. (7) Obesity Qualifiers: Obesity type: due to excess calories Is this a current diagnosis for this admission?: Yes Plan: Patient will be availed of a nutritional consultation for weight loss and control of her cardiac as well as diabetic conditions. She will be introduced to lifestyle and dietary changes which should enhance her health and life. This will be done once patient has been treated for her acute cholecystitis and is approaching the time for discharge to home. - Time Time Spent: 30 to 50 Minutes Critical Time spent with patient: Less than 15 minutes Anticipated discharge: Home - Inpatient Certification Based on my medical assessment, after consideration of the patient's comorbidities, presenting symptoms, or acuity I expect that the services needed warrant INPATIENT care.: Yes I certify that my determination is in accordance with my understanding of Medicare's requirements for reasonable and necessary INPATIENT services [42 CFR 412.3e].: Yes Medical Necessity: Significant Comorbidiites Make Outpatient Treatment Too Risky, Need Close Monitoring Due to Risk of Patient Decompensation, Need For IV Fluids, Need for Pain Control, Need for IV Antibiotics, Need for Surgery, Risk of Complication if Not Cared For in Hospital
[2018-08-23 02:51] LABS: ALANINE AMINOTRANSFERASE 88 U/L (9-52); ALKALINE PHOSPHATASE 142 U/L (38-126); ANION GAP 9 (5-19); ASPARTATE AMINO TRANSFERASE 123 U/L (14-36); BILIRUBIN,DIRECT 0.5 mg/dL (0.0-0.4); BILIRUBIN,TOTAL 0.9 mg/dL (0.2-1.3); BLOOD UREA NITROGEN 12 mg/dL (7-20); CALCIUM 8.4 mg/dL (8.4-10.2); CARBON DIOXIDE 24 mmol/L (22-30); CHLORIDE 103 mmol/L (98-107); CHOLESTEROL 165.15 mg/dL (0-200); CREATINE KINASE 76 U/L (30-135); LIPASE 94.1 U/L (23-300); POTASSIUM 3.6 mmol/L (3.6-5.0); SODIUM 136.3 mmol/L (137-145); TOTAL PROTEIN 5.7 g/dL (6.3-8.2); TRIGLYCERIDES 111 mg/dL (<150)
[2018-08-23 03:01] LABS: CREATINE KINASE MB 0.42 ng/mL (<4.55)
[2018-08-23 03:02] LABS: DIRECT LDL 102 mg/dL (<100)
[2018-08-23 03:09] LABS: GLUCOSE 409 mg/dL (75-110); TROPONIN I 0.035 ng/mL
[2018-08-23 03:30] LABS: AMYLASE < 30 U/L (30-110)
[2018-08-23 04:13] LABS: FREE T3 3.54 pg/mL (2.77-5.27); FREE T4 (FREE THYROXINE) 2.16 ng/dL (0.78-2.19)
[2018-08-23 04:27] LABS: THYROID STIMULATING HORMONE 2.02 uIU/mL (0.47-4.68)
[2018-08-23] MEDS: NORMAL SALINE 1000 ML 1,000 ML IV PRN ×2 (04:45→13:05)
--- NOTE | 2018-08-23 06:09 | PDOC CONSULTATION ---
Consultation Consult Date: 08/23/18 Consult reason:: Cholecystitis History of Present Illness Admission Date/PCP: 08/22/18 22:52 Patient complains of: Nonspecific upper abdominal pain History of Present Illness: PHILLIP DORANTES is a 48 year old female seen at the request of the hospitalist service. Patient is a very poor historian. Her main complaint is that she "does not feel good". Patient reports upper abdominal pain that is dull and aching. She cannot specifically relate her pain to fatty food intake. Her pain does not radiate. She rates her pain as a 5 out of 10. Patient has hyp ertension and diabetes, but does not take any of her medications. Currently she reports abdominal pain, malaise, fatigue, and intermittent nausea. She denies chest pain, shortness of breath, fevers, chills, melena, hematochezia, hematemesis, blurry vision. Nothing makes her pain worse. Pain medications makes it better. Past Medical History Cardiac Medical History: Reports: Congestive Heart Failure, Coronary Artery Disease, Hyperlipidema, Hypertension, Heart Murmur Pulmonary Medical History: Denies: Asthma, Chronic Obstructive Pulmonary Disease (COPD), Respiratory Failure EENT Medical History: Reports: None Neurological Medical History: Denies: Hemorrhagic CVA, Ischemic CVA, Multiple Sclerosis, Seizures Endocrine Medical History: Reports: Diabetes Mellitus Type 2, Obesity Denies: Diabetes Mellitus Type 1, Hyperthyroidism, Hypothyroidism Renal/ Medical History: Denies: Chronic Kidney Disease, Nephrolithiasis Malignancy Medical History: Reports: None GI Medical History: Denies: Cirrhosis, Hepatitis Musculoskeltal Medical History: Denies: Arthritis, Gout Skin Medical History: Denies: Eczema, Psoriasis Psychiatric Medical History: Denies: Alcohol Dependency, Depression, Substance Abuse, Tobacco Dependency Traumatic Medical History: Reports: None Hematology: Denies: Anemia, Bleeding Tendencies Infectious Medical History: Reports: None Past Surgical History Past Surgical History: Reports: Cardiac Catheterization, Coronary Stent Social History Lives with: Family Smoking Status: Never Smoker Frequency of Alcohol Use: None Hx Recreational Drug Use: No Drugs: None Hx Prescription Drug Abuse: No - Advance Directive Resuscitation Status: Full Code Family History Family History: Reviewed & Not Pertinent Parental Family History Reviewed: Yes Children Family History Reviewed: Yes Sibling(s) Family History Reviewed.: Yes Medication/Allergy Home Medications: Amlodipine Besylate [Norvasc 10 mg Tablet] 10 mg PO DAILY #30 tablet 05/18/17 Aspirin [Aspirin 81 mg Chewable Tablet] 81 mg PO DAILY tab.chew 05/18/17 Atorvastatin Calcium [Lipitor 80 mg Tablet] 80 mg PO QHS #30 tablet 05/18/17 Clopidogrel Bisulfate [Plavix 75 mg Tablet] 75 mg PO DAILY #30 tablet 05/18/17 Hydrochlorothiazide [Hydrodiuril 12.5 mg Tablet] 12.5 mg PO DAILY #30 capsule 05/18/17 Insulin Glargine,Hum.rec.anlog [Lantus Insulin 100 Unit/mL] 40 unit SUBCUT QHS #1 insuln.pen 05/18/17 Insulin Lispro [Humalog Insulin (Lispro) 100 unit/mL] 10 unit SUBCUT AC #10 unit 05/18/17 Lisinopril [Prinivil 10 mg Tablet] 40 mg PO DAILY #30 tablet 05/18/17 Metoprolol Tartrate [Lopressor 25 mg Tablet] 12.5 mg PO Q12 #60 tablet 05/18/17 Aspirin [Aspirin 81 mg Chewable Tablet] 81 mg PO DAILY #30 tab.chew 08/06/18 Atorvastatin Calcium [Lipitor 80 mg Tablet] 80 mg PO QHS #30 tablet 08/06/18 Carvedilol [Coreg 25 mg Tablet] 1 tab PO Q12 #60 tab 08/06/18 Clopidogrel Bisulfate [Plavix 75 mg Tablet] 75 mg PO DAILY #30 tablet 08/06/18 Cyanocobalamin (Vitamin B-12) [Vitamin B-12 250 mcg Tablet] 125 mcg PO DAILY #30 tablet 08/06/18 Insulin Glargine,Hum.rec.anlog [Lantus Insulin 100 Unit/mL] 30 unit SUBCUT QHS #1 pen 08/06/18 Insulin Lispro [Humalog Insulin 100 Unit/1 ml 3 ml Vial] 10 unit SUBCUT AC #10 ml 08/06/18 Isosorbide Mononitrate [Imdur 30 mg Tablet.er] 30 mg PO QAM #30 tab.er.24h 08/06/18 Ranolazine [Ranexa 500 mg Tab.sr] 500 mg PO Q12 #60 tab.sr.12h 08/06/18 Sacubitril/Valsartan [Entresto 49 mg/51 mg Tablet] 1 tab PO BID #60 tablet 08/06/18 Torsemide [Demadex 20 mg Tablet] 20 mg PO DAILY #30 tablet 08/06/18 Zolpidem Tartrate [Ambien 5 mg Tablet] 5 mg PO HSP PRN #20 tablet 08/06/18 Allergies/Adverse Reactions: No Known Allergies Allergy (Verified 08/30/17 20:01) Review of Systems Constitutional: PRESENT: fatigue. ABSENT: anorexia, fever(s), headache(s) Eyes: ABSENT: visual disturbances Ears: ABSENT: hearing changes Nose, Mouth, and Throat: ABSENT: sore throat Cardiovascular: ABSENT: chest pain, palpitations Respiratory: ABSENT: cough, dyspnea Gastrointestinal: PRESENT: abdominal pain, bloating, nausea. ABSENT: hematemesis, hematochezia, melena Genitourinary: PRESENT: dysuria Musculoskeletal: ABSENT: back pain Integumentary: ABSENT: pruritus, rash Neurological: ABSENT: confusion, convulsions, dizziness Psychiatric: ABSENT: anxiety, depression Endocrine: ABSENT: cold intolerance, heat intolerance Hematologic/Lymphatic: ABSENT: easy bleeding, easy bruising Physical Exam Vital Signs: Temp Pulse Resp BP Pulse Ox 97.5 F 110 H 23 H 191/132 H 99 08/22/18 17:04 08/22/18 17:04 08/23/18 05:01 08/23/18 05:00 08/23/18 05:01 Intake & Output 08/21/18 08/22/18 08/23/18 06:59 06:59 06:59 Intake Total 1100 Balance 1100 Weight 89.8 kg General appearance: PRESENT: no acute distress, disheveled Head exam: PRESENT: atraumatic, normocephalic Eye exam: PRESENT: EOMI, PERRLA. ABSENT: scleral icterus Mouth exam: PRESENT: moist, neck supple Neck exam: ABSENT: meningismus, tenderness, thyromegaly, tracheal deviation Respiratory exam: PRESENT: clear to auscultation ac, symmetrical, unlabored. ABSENT: chest wall tenderness, tachypnea, wheezes Cardiovascular exam: PRESENT: RRR Pulses: PRESENT: normal radial pulses Vascular exam: PRESENT: normal capillary refill. ABSENT: pallor GI/Abdominal exam: PRESENT: soft, tenderness - Mild. ABSENT: distended, Rojas's sign Rectal exam: PRESENT: deferred Extremities exam: ABSENT: clubbing Musculoskeletal exam: ABSENT: deformity Neurological exam: PRESENT: alert, awake, oriented to person, oriented to place, oriented to time, oriented to situation, CN II-XII grossly intact Psychiatric exam: ABSENT: agitated, anxious, depressed Focused psych exam: ABSENT: delusional Skin exam: ABSENT: erythema, jaundice Results Laboratory Results: 08/23/18 02:24 08/23/18 02:24 08/22/18 08/22/18 08/22/18 16:00 16:00 16:00 WBC 6.2 RBC 4.50 Hgb 11.8 L Hct 36.8 MCV 82 MCH 26.3 L MCHC 32.2 RDW 14.8 H Plt Count 331 Seg Neutrophils % 58.3 Lymphocytes % 31.7 Monocytes % 8.1 Eosinophils % 0.9 Basophils % 1.0 Absolute Neutrophils 3.6 Absolute Lymphocytes 2.0 Absolute Monocytes 0.5 Absolute Eosinophils 0.1 Absolute Basophils 0.1 VBG pH VBG pCO2 VBG HCO3 VBG Base Excess Sodium 132.9 L Potassium 4.1 Chloride 96 L Carbon Dioxide 25 Anion Gap 12 BUN 12 Creatinine 0.66 Est GFR ( Amer) > 60 Est GFR (Non-Af Amer) > 60 Glucose 443 H* Lactic Acid 1.9 Calcium 9.2 Magnesium Total Bilirubin 1.1 AST 105 H ALT 89 H Alkaline Phosphatase 172 H Total Protein 6.6 Albumin 3.7 Triglycerides Cholesterol LDL Cholesterol Direct VLDL Cholesterol HDL Cholesterol Amylase Lipase TSH Free T4 Free T3 pg/mL Urine Color Urine Appearance Urine pH Ur Specific [place] Urine Protein Urine Glucose (UA) Urine Ketones Urine Blood Urine Nitrite Ur Leukocyte Esterase Urine WBC (Auto) Urine RBC (Auto) 08/22/18 08/22/18 08/23/18 16:00 19:08 02:24 WBC RBC Hgb Hct MCV MCH MCHC RDW Plt Count Seg Neutrophils % Lymphocytes % Monocytes % Eosinophils % Basophils % Absolute Neutrophils Absolute Lymphocytes Absolute Monocytes Absolute Eosinophils Absolute Basophils VBG pH 7.41 VBG pCO2 44.7 VBG HCO3 27.6 VBG Base Excess 2.4 Sodium 136.3 L Potassium 3.6 Chloride 103 Carbon Dioxide 24 Anion Gap 9 BUN 12 Creatinine 0.66 Est GFR ( Amer) > 60 Est GFR (Non-Af Amer) > 60 Glucose 409 H* Lactic Acid Calcium 8.4 Magnesium 1.8 Total Bilirubin 0.9 AST 123 H ALT 88 H Alkaline Phosphatase 142 H Total Protein 5.7 L Albumin 3.0 L Triglycerides 111 Cholesterol 165.15 LDL Cholesterol Direct 102 H VLDL Cholesterol 22.0 HDL Cholesterol 47 Amylase < 30 L Lipase 94.1 TSH Free T4 Free T3 pg/mL Urine Color YELLOW Urine Appearance CLEAR Urine pH 6.0 Ur Specific [place] 1.038 Urine Protein 100 H Urine Glucose (UA) >=500 H Urine Ketones TRACE H Urine Blood SMALL H Urine Nitrite NEGATIVE Ur Leukocyte Esterase NEGATIVE Urine WBC (Auto) 2 Urine RBC (Auto) 1 08/23/18 08/23/18 02:24 02:24 WBC 6.5 RBC 4.31 Hgb 11.4 L Hct 34.8 L MCV 81 MCH 26.3 L MCHC 32.6 RDW 15.1 H Plt Count 262 Seg Neutrophils % 73.3 Lymphocytes % 18.6 Monocytes % 6.9 Eosinophils % 0.3 Basophils % 0.9 Absolute Neutrophils 4.8 Absolute Lymphocytes 1.2 Absolute Monocytes 0.5 Absolute Eosinophils 0.0 Absolute Basophils 0.1 VBG pH VBG pCO2 VBG HCO3 VBG Base Excess Sodium Potassium Chloride Carbon Dioxide Anion Gap BUN Creatinine Est GFR ( Amer) Est GFR (Non-Af Amer) Glucose Lactic Acid Calcium Magnesium Total Bilirubin AST ALT Alkaline Phosphatase Total Protein Albumin Triglycerides Cholesterol LDL Cholesterol Direct VLDL Cholesterol HDL Cholesterol Amylase Lipase TSH 2.02 Free T4 2.16 Free T3 pg/mL 3.54 Urine Color Urine Appearance Urine pH Ur Specific [place] Urine Protein Urine Glucose (UA) Urine Ketones Urine Blood Urine Nitrite Ur Leukocyte Esterase Urine WBC (Auto) Urine RBC (Auto) 08/22/18 08/22/18 08/23/18 16:00 20:28 02:24 Creatine Kinase CK-MB (CK-2) 0.42 Troponin I 0.044 0.037 0.035 08/23/18 02:24 Creatine Kinase 76 CK-MB (CK-2) Troponin I Impressions: Chest X-Ray 08/22/18 15:40 IMPRESSION: NO ACUTE RADIOGRAPHIC FINDING IN THE CHEST. Abdomen/Pelvis CT 08/22/18 19:24 IMPRESSION: Abnormal appearance to the gallbladder, suspicious for cholecystitis. Correlate with history and patient exam. Fatty infiltrative change to the liver. Simple left renal cyst TECHNICAL DOCUMENTATION: Quality ID # [id number]: Final reports with documentation of one or more dose reduction techniques (e.g., Automated exposure control, adjustment of the mA and/or kV according to patient size, use of iterative reconstruction technique) copyright 2011 [employer]- All Rights Reserved Assessment & Plan - Diagnosis (1) Acute cholecystitis Is this a current diagnosis for this admission?: Yes - Plan Summary Plan Summary: This is a 48-year-old female with multiple medical problems. She has coronary artery disease, congestive heart failure, extreme hypertension, and diabetes. She takes no medications whatsoever. The patient is being admitted to the medical service for optimization. Patient does have upper abdominal pain and evidence of cholecystitis on CT scan (I have reviewed the films and report). Her bilirubin is normal. I will start antibiotics as treatment for her cholecystitis. Once the patient has been optimized, she can undergo cholecystectomy. I will follow this patient closely with you.
[2018-08-23] MEDS: HEPARIN SOD (PORCINE) 5,000 UNIT/ML 1 ML SYRINGE SUBCUT SCH ×3 (06:56→22:53)
[2018-08-23] MEDS ORDERED: PIPERACILLIN/TAZOBACTAM 3.375 GM VIAL IV ONE (06:57)
[2018-08-23] MEDS: METOCLOPRAMIDE HCL INJ/PF 10 MG/2 ML SDV IV SCH ×4 (08:42→22:55)
[2018-08-23] MEDS: SUCRALFATE SUSP 1 GM/10 ML UDCUP PO SCH ×4 (08:42→22:54)
[2018-08-23] MEDS: INSULIN REG, HUMAN 100 UNIT/ML 3 ML VIAL (PYX) SUBCUT PRN ×2 (08:43→12:18)
[2018-08-23] MEDS ORDERED: METOPROLOL TARTRATE PF/INJ 5 MG/5 ML SDV IV PRN (09:16)
[2018-08-23] MEDS: PANTOPRAZOLE SODIUM 40 MG VIAL IV SCH ×2 (09:58→22:54)
[2018-08-23] MEDS: DOCUSATE SODIUM 100 MG CAPSULE PO SCH ×2 (09:58→18:00)
[2018-08-23] MEDS: METOPROLOL SUCCINATE 25 MG TAB.SR.24H PO SCH ×2 (09:58→22:56)
[2018-08-23] MEDS ORDERED: LISINOPRIL 10 MG TABLET PO ONE (10:00)
[2018-08-23 10:05] LABS: CREATINE KINASE MB 0.32 ng/mL (<4.55); TROPONIN I 0.034 ng/mL
[2018-08-23] MEDS ORDERED: SACUBITRIL/VALSARTAN 24 MG/26 MG TABLET PO SCH (12:00)
[2018-08-23 16:41] LABS: CREATINE KINASE MB 0.37 ng/mL (<4.55); TROPONIN I 0.032 ng/mL
--- NOTE | 2018-08-23 17:48 | PDOC PROGRESS REPORT ---
Subjective Progress Note for:: 08/23/18 Subjective:: 48 y.o. F with a PMH of HTN, CHF and DM presented to [facility] with abdominal pain. Diagnosed with cholecystitis, she is admitted to the hospitalist service for medical management of her hypertensive urgency and hyperglycemia. Surgery has been consulted regarding her cholecystitis and plan to remove her gallbladder once cleared for surgery. The patient was seen this morning on rounds. She is resting comfortably in bed. She complains of mild epigastric, RUQ abdominal pain. The patient is an incredibly bad historian, unable to tell me much of anything about her medical history. The patient is alert and oriented x3, answers questions appropriately. Her bishop paiute language is Turkish. Unclear why she is so vague about her PMH. BP upon admission was > 200/100. Nighttime hospitalist ordered IV labetalol for blood pressure control, unfortunately, the hospital is out of stock. Switched patient to IV metoprolol as needed, scheduled p.o. Toprol-XL, lisinopril and Entresto. According to previous records, the patient had an echocardiogram in 2017 which revealed an LVEF of 45%. The patient was previously prescribed Entresto for her heart failure, but according to her pharmacy ([facility] ), she last filled her prescription in January. Reason For Visit: CHOLECYSTITIS, HYPERTENSIVE CRISIS Physical Exam Vital Signs: Temp Pulse Resp BP Pulse Ox 97.5 F 88 25 H 159/86 H 98 08/22/18 17:04 08/23/18 14:01 08/23/18 13:01 08/23/18 13:01 08/23/18 13:01 Intake & Output 08/22/18 08/23/18 08/24/18 06:59 06:59 06:59 Intake Total 1100 1200 Balance 1100 1200 Weight 89.8 kg General appearance: PRESENT: well-developed, well-nourished Head exam: PRESENT: atraumatic Eye exam: PRESENT: conjunctiva pink, PERRLA Mouth exam: PRESENT: moist, tongue midline Neck exam: PRESENT: full ROM. ABSENT: JVD Respiratory exam: PRESENT: clear to auscultation ac, symmetrical, unlabored Cardiovascular exam: PRESENT: +S1, +S2, tachycardia - 103-110 Pulses: PRESENT: normal radial pulses, normal dorsalis pedis pul GI/Abdominal exam: PRESENT: normal bowel sounds, soft, tenderness - Epigastric/RUQ area. ABSENT: distended Rectal exam: PRESENT: deferred Extremities exam: PRESENT: full ROM. ABSENT: pedal edema Musculoskeletal exam: PRESENT: ambulatory, full ROM, normal inspection Neurological exam: PRESENT: alert, awake, oriented to person, oriented to place, oriented to time, oriented to situation Skin exam: PRESENT: dry, intact, normal color Results Laboratory Results: 08/23/18 02:24 08/23/18 02:24 08/22/18 08/23/18 08/23/18 19:08 02:24 02:24 WBC 6.5 RBC 4.31 Hgb 11.4 L Hct 34.8 L MCV 81 MCH 26.3 L MCHC 32.6 RDW 15.1 H Plt Count 262 Seg Neutrophils % 73.3 Lymphocytes % 18.6 Monocytes % 6.9 Eosinophils % 0.3 Basophils % 0.9 Absolute Neutrophils 4.8 Absolute Lymphocytes 1.2 Absolute Monocytes 0.5 Absolute Eosinophils 0.0 Absolute Basophils 0.1 Sodium 136.3 L Potassium 3.6 Chloride 103 Carbon Dioxide 24 Anion Gap 9 BUN 12 Creatinine 0.66 Est GFR ( Amer) > 60 Est GFR (Non-Af Amer) > 60 Glucose 409 H* Calcium 8.4 Magnesium 1.8 Total Bilirubin 0.9 AST 123 H ALT 88 H Alkaline Phosphatase 142 H Total Protein 5.7 L Albumin 3.0 L Triglycerides 111 Cholesterol 165.15 LDL Cholesterol Direct 102 H VLDL Cholesterol 22.0 HDL Cholesterol 47 Amylase < 30 L Lipase 94.1 TSH Free T4 Free T3 pg/mL Urine Color YELLOW Urine Appearance CLEAR Urine pH 6.0 Ur Specific [place] 1.038 Urine Protein 100 H Urine Glucose (UA) >=500 H Urine Ketones TRACE H Urine Blood SMALL H Urine Nitrite NEGATIVE Ur Leukocyte Esterase NEGATIVE Urine WBC (Auto) 2 Urine RBC (Auto) 1 08/23/18 02:24 WBC RBC Hgb Hct MCV MCH MCHC RDW Plt Count Seg Neutrophils % Lymphocytes % Monocytes % Eosinophils % Basophils % Absolute Neutrophils Absolute Lymphocytes Absolute Monocytes Absolute Eosinophils Absolute Basophils Sodium Potassium Chloride Carbon Dioxide Anion Gap BUN Creatinine Est GFR ( Amer) Est GFR (Non-Af Amer) Glucose Calcium Magnesium Total Bilirubin AST ALT Alkaline Phosphatase Total Protein Albumin Triglycerides Cholesterol LDL Cholesterol Direct VLDL Cholesterol HDL Cholesterol Amylase Lipase TSH 2.02 Free T4 2.16 Free T3 pg/mL 3.54 Urine Color Urine Appearance Urine pH Ur Specific [place] Urine Protein Urine Glucose (UA) Urine Ketones Urine Blood Urine Nitrite Ur Leukocyte Esterase Urine WBC (Auto) Urine RBC (Auto) 08/22/18 08/22/18 08/23/18 16:00 20:28 02:24 Creatine Kinase CK-MB (CK-2) 0.42 Troponin I 0.044 0.037 0.035 08/23/18 08/23/18 08/23/18 02:24 09:19 09:19 Creatine Kinase 76 80 CK-MB (CK-2) 0.32 Troponin I 0.034 08/23/18 08/23/18 15:47 15:47 Creatine Kinase 62 CK-MB (CK-2) 0.37 Troponin I 0.032 Impressions: Chest X-Ray 08/22/18 15:40 IMPRESSION: NO ACUTE RADIOGRAPHIC FINDING IN THE CHEST. Abdomen/Pelvis CT 08/22/18 19:24 IMPRESSION: Abnormal appearance to the gallbladder, suspicious for cholecystitis. Correlate with history and patient exam. Fatty infiltrative change to the liver. Simple left renal cyst TECHNICAL DOCUMENTATION: Quality ID # 436: Final reports with documentation of one or more dose reduction techniques (e.g., Automated exposure control, adjustment of the mA and/or kV according to patient size, use of iterative reconstruction technique) copyright 2011 [employer]- All Rights Reserved Status: Imported from PACS Assessment & Plan - Diagnosis (1) Acute cholecystitis Is this a current diagnosis for this admission?: Yes Plan: As seen on CT Surgery consulted Plan for inpatient cholecystectomy once medically cleared PRN Tylenol and morphine for pain control Scheduled Zosyn for empiric antibiotic coverage (2) Hypertensive urgency Is this a current diagnosis for this admission?: Yes Plan: Secondary to noncompliance with antihypertensives Initial BP > 200/100 Treated with IV metoprolol as needed Scheduled p.o. Toprol-XL, lisinopril, Entresto PRN hydralazine for SBP>180 Troponins ~0.03 the upper limit range, no indication of acute PR (3) Diabetes mellitus type 2 in obese Is this a current diagnosis for this admission?: Yes Plan: History of DM Unclear about compliance Hgb A1c in a.m. Accu-Cheks AC at bedtime Humalog sliding scale insulin Lantus nightly Patient will require meeting with clinical systems educator (4) Congestive heart failure Qualifiers: Heart failure type: combined systolic and diastolic Heart failure chronicity: chronic Qualified Code(s): I50.42 - Chronic combined systolic (congestive) and diastolic (congestive) heart failure Is this a current diagnosis for this admission?: Yes Plan: As evidenced by echocardiogram from 2017 LVEF 45% Initiate Entresto p.o. Patient will require cardiac clearance prior to surgery Consult cardiology, appreciate their recommendations - Time Time Spent with patient: 15-24 minutes Medications reviewed and adjusted accordingly: Yes Anticipated discharge: Home - Inpatient Certification Based on my medical assessment, after consideration of the patient's comorbidities, presenting symptoms, or acuity I expect that the services needed warrant INPATIENT care.: Yes I certify that my determination is in accordance with my understanding of Medicare's requirements for reasonable and necessary INPATIENT services [42 CFR 412.3e].: Yes Medical Necessity: Need for Surgery, Risk of Complication if Not Cared For in Hospital
[2018-08-23] MEDS: INSULIN GLARGINE,HUM.REC.ANLOG 300 UNIT/3 ML INSULN.PEN SUBCUT SCH (22:54)
[2018-08-24] MEDS: PIPERACILLIN SODIUM/TAZOBACTAM 3.375 GM in NORMAL SALINE 100 ML IV SCH ×3 (05:52→17:34)
[2018-08-24] MEDS: HEPARIN SOD (PORCINE) 5,000 UNIT/ML 1 ML SYRINGE SUBCUT SCH ×3 (05:53→22:23)
[2018-08-24] MEDS: NORMAL SALINE 1000 ML 1,000 ML IV PRN ×2 (05:53→12:46)
[2018-08-24 06:34] LABS: ABSOLUTE BASOPHILS # (AUTO) 0.1 10^3/uL (0.0-0.2); ABSOLUTE EOSINOPHILS # (AUTO) 0.1 10^3/uL (0.0-0.6); ABSOLUTE LYMPHOCYTES (AUTO) 2.7 10^3/uL (0.5-4.7); ABSOLUTE MONOCYTES (AUTO) 0.5 10^3/uL (0.1-1.4); ABSOLUTE NEUT (AUTO) 3.5 10^3/uL (1.7-8.2); BASOPHILS % (AUTO) 1.2 % (0-2); EOSINOPHILS % (AUTO) 1.6 % (0-6); HEMATOCRIT 35.5 % (36.0-47.0); HEMOGLOBIN 11.4 g/dL (12.0-15.5); LYMPHOCYTES % (AUTO) 38.8 % (13-45); MEAN CORPUSCULAR HEMOGLOBIN 26.1 pg (27.0-33.4); MEAN CORPUSCULAR HGB CONC 32.3 g/dL (32.0-36.0); MEAN CORPUSCULAR VOLUME 81 fl (80-97); MONOCYTES % (AUTO) 7.3 % (3-13); PLATELET COUNT 309 10^3/uL (150-450); RED BLOOD COUNT 4.39 10^6/uL (3.72-5.28); RED CELL DISTRIBUTION WIDTH 14.7 % (11.5-14.0); SEGMENTED NEUTROPHILS % (AUTO) 51.1 % (42-78); TOTAL CELLS COUNTED % (AUTO) 100 %; WHITE BLOOD COUNT 6.9 10^3/uL (4.0-10.5)
[2018-08-24 07:06] LABS: ANION GAP 6 (5-19); BLOOD UREA NITROGEN 11 mg/dL (7-20); CALCIUM 8.5 mg/dL (8.4-10.2); CARBON DIOXIDE 26 mmol/L (22-30); CHLORIDE 108 mmol/L (98-107); GLUCOSE 90 mg/dL (75-110); POTASSIUM 3.1 mmol/L (3.6-5.0); SODIUM 140.3 mmol/L (137-145)
[2018-08-24] MEDS: SUCRALFATE SUSP 1 GM/10 ML UDCUP PO SCH ×4 (08:09→22:22)
[2018-08-24] MEDS: METOCLOPRAMIDE HCL INJ/PF 10 MG/2 ML SDV IV SCH ×3 (08:09→15:28)
[2018-08-24] MEDS ORDERED: POTASSIUM CHLORIDE 10 MEQ CAPSULE.ER PO ONE (09:30)
[2018-08-24] MEDS: PANTOPRAZOLE SODIUM 40 MG VIAL IV SCH ×2 (09:31→22:22)
[2018-08-24] MEDS: DOCUSATE SODIUM 100 MG CAPSULE PO SCH ×2 (09:32→17:13)
[2018-08-24] MEDS: AMLODIPINE BESYLATE 5 MG TABLET PO SCH (09:32)
[2018-08-24] MEDS: LISINOPRIL 10 MG TABLET PO SCH (09:32)
[2018-08-24] MEDS: METOPROLOL SUCCINATE 25 MG TAB.SR.24H PO SCH ×2 (09:33→22:25)
[2018-08-24] MEDS ORDERED: LISINOPRIL 10 MG TABLET PO SCH ×2 (10:00)
--- NOTE | 2018-08-24 15:35 | PDOC PROGRESS REPORT ---
Subjective Progress Note for:: 08/24/18 Subjective:: 48 y.o. F with a PMH of HTN, CHF and DM presented to [facility] with abdominal pain. Diagnosed with cholecystitis, she is admitted to the hospitalist service for medical management of her hypertensive urgency and hyperglycemia. Surgery has been consulted regarding her cholecystitis and plan to remove her gallbladder once cleared for surgery. The patient was seen on morning rounds. She was found resting in bed comfortably on room air. She reports intermittent epigastric discomfort associated with nausea, however, states that she has been eating without difficulty and that overall her pain is improved. She denies headache, dizziness, chest pain, palpitations, dyspnea, orthopnea, cough, emesis, diarrhea and constipation. She reports that she previously controlled her diabetes with insulin but has been without medications for a long time. She is unable to describe previous blood pressure control/medications. She does tell me that she appreciates the opportunity to meet with [facility] to request Medicaid/community care assistance. She does admit to financial difficulties leading to medication noncompliance; specifically unable to afford Entresto and insulin. Otherwise, she has no new questions or concerns today. No concerns per nursing. Reason For Visit: CHOLECYSTITIS, HYPERTENSIVE CRISIS Physical Exam Vital Signs: Temp Pulse Resp BP Pulse Ox 97.6 F 84 18 153/96 H 100 08/24/18 11:58 08/24/18 14:00 08/24/18 11:58 08/24/18 11:58 08/24/18 11:58 Intake & Output 08/23/18 08/24/18 08/25/18 06:59 06:59 06:59 Intake Total 1100 2755 1100 Balance 1100 2755 1100 Weight 89.8 kg 93.2 kg General appearance: PRESENT: no acute distress, obese, well-developed, well- nourished Head exam: PRESENT: atraumatic, normocephalic Eye exam: PRESENT: conjunctiva pink, EOMI, PERRLA. ABSENT: scleral icterus Ear exam: PRESENT: normal external ear exam Mouth exam: PRESENT: moist, tongue midline Neck exam: ABSENT: carotid bruit, JVD, lymphadenopathy, thyromegaly Respiratory exam: PRESENT: clear to auscultation ac, symmetrical, unlabored. ABSENT: rales, rhonchi, wheezes Cardiovascular exam: PRESENT: RRR, +S1, +S2. ABSENT: diastolic murmur, rubs, systolic murmur Pulses: PRESENT: normal dorsalis pedis pul Vascular exam: PRESENT: normal capillary refill GI/Abdominal exam: PRESENT: normal bowel sounds, soft, tenderness. ABSENT: distended, guarding, mass, organolmegaly, rebound Rectal exam: PRESENT: deferred Extremities exam: PRESENT: full ROM. ABSENT: calf tenderness, clubbing, pedal edema Neurological exam: PRESENT: alert, awake, oriented to person, oriented to place, oriented to time, oriented to situation, CN II-XII grossly intact. ABSENT: motor sensory deficit Psychiatric exam: PRESENT: flat affect, normal mood. ABSENT: homicidal ideation, suicidal ideation Skin exam: PRESENT: dry, intact, warm. ABSENT: cyanosis, rash Results Laboratory Results: 08/24/18 05:44 08/24/18 05:44 08/24/18 08/24/18 05:44 05:44 WBC 6.9 RBC 4.39 Hgb 11.4 L Hct 35.5 L MCV 81 MCH 26.1 L MCHC 32.3 RDW 14.7 H Plt Count 309 Seg Neutrophils % 51.1 Lymphocytes % 38.8 Monocytes % 7.3 Eosinophils % 1.6 Basophils % 1.2 Absolute Neutrophils 3.5 Absolute Lymphocytes 2.7 Absolute Monocytes 0.5 Absolute Eosinophils 0.1 Absolute Basophils 0.1 Sodium 140.3 Potassium 3.1 L Chloride 108 H Carbon Dioxide 26 Anion Gap 6 BUN 11 Creatinine 0.76 Est GFR ( Amer) > 60 Est GFR (Non-Af Amer) > 60 Glucose 90 Calcium 8.5 Magnesium 1.9 08/22/18 19:08 Clean Catch Midstream Urine Culture - Final Mixed Urogenital Cassandra 08/22/18 08/22/18 08/23/18 16:00 20:28 02:24 Creatine Kinase CK-MB (CK-2) 0.42 Troponin I 0.044 0.037 0.035 08/23/18 08/23/18 08/23/18 02:24 09:19 09:19 Creatine Kinase 76 80 CK-MB (CK-2) 0.32 Troponin I 0.034 08/23/18 08/23/18 15:47 15:47 Creatine Kinase 62 CK-MB (CK-2) 0.37 Troponin I 0.032 Impressions: Chest X-Ray 08/22/18 15:40 IMPRESSION: NO ACUTE RADIOGRAPHIC FINDING IN THE CHEST. Abdomen/Pelvis CT 08/22/18 19:24 IMPRESSION: Abnormal appearance to the gallbladder, suspicious for cholecystitis. Correlate with history and patient exam. Fatty infiltrative change to the liver. Simple left renal cyst TECHNICAL DOCUMENTATION: Quality ID # 436: Final reports with documentation of one or more dose reduction techniques (e.g., Automated exposure control, adjustment of the mA and/or kV according to patient size, use of iterative reconstruction technique) copyright 2011 [employer]- All Rights Reserved Assessment & Plan - Diagnosis (1) Acute cholecystitis Is this a current diagnosis for this admission?: Yes Plan: Improved symptomology today; patient reports decreased abdominal discomfort. Now tolerating p.o. patient is afebrile with normal WBC. As seen on CT Surgery consulted; plan for inpatient cholecystectomy once medically cleared Blood cultures show gram-positive cocci in 1 of 4 bottles. PRN Tylenol and morphine for pain control Scheduled Zosyn for empiric antibiotic coverage (2) Diabetes mellitus type 2 in obese Is this a current diagnosis for this admission?: Yes Plan: History of DM; noncompliance secondary to financial barriers. Hgb A1c >14% Consistent carb/Cardiac diet Accu-Cheks before meals and at bedtime with Humalog for sliding scale coverage. Lantus nightly and around about report. coding educator and labor and delivery registered nurse are consulted. Discharge planning is consulted. (3) Hypertensive urgency Is this a current diagnosis for this admission?: Yes Plan: Secondary to noncompliance with antihypertensives and obesity Initial BP > 200/100; improved this afternoon. Troponins ~0.03 the upper limit range, no indication of acute [place] Treated with IV metoprolol as needed While Entresto is an excellent option and patient with systolic heart failure, the patient's self-pay status will limit her ability to continue this patient post discharge. Therefore, have discontinued Entresto. Increased dose of lisinopril today. Started amlodipine and hydrochlorothiazide. Continue Toprol-XL twice daily. Consider scheduled hydralazine if remains elevated tomorrow; though BP is improved this afternoon PRN hydralazine for SBP>180 Cardiac diet. (4) Congestive heart failure Qualifiers: Heart failure type: combined systolic and diastolic Heart failure chronicity: chronic Qualified Code(s): I50.42 - Chronic combined systolic (congestive) and diastolic (congestive) heart failure Is this a current diagnosis for this admission?: Yes Plan: Stable and without exacerbation at this time. As evidenced by echocardiogram from 2017; LVEF 45% Antihypertensives as above. Patient will require cardiac clearance prior to surgery Consult cardiology, appreciate their recommendations - Time Time Spent with patient: 15-24 minutes Medications reviewed and adjusted accordingly: Yes Anticipated discharge: Home Within: Other - pending cholecystectomy - Inpatient Certification Based on my medical assessment, after consideration of the patient's comorbidities, presenting symptoms, or acuity I expect that the services needed warrant INPATIENT care.: Yes I certify that my determination is in accordance with my understanding of Medicare's requirements for reasonable and necessary INPATIENT services [42 CFR 412.3e].: Yes Medical Necessity: Need for Surgery
[2018-08-24] MEDS: INSULIN REG, HUMAN 100 UNIT/ML 3 ML VIAL (PYX) SUBCUT PRN (17:35)
[2018-08-24] MEDS: HYDRALAZINE HCL 10 MG TABLET PO SCH (22:22)
[2018-08-24] MEDS: INSULIN GLARGINE,HUM.REC.ANLOG 300 UNIT/3 ML INSULN.PEN SUBCUT SCH (22:23)
[2018-08-25] MEDS: PIPERACILLIN SODIUM/TAZOBACTAM 3.375 GM in NORMAL SALINE 100 ML IV SCH ×4 (00:06→18:38)
[2018-08-25] MEDS: METOCLOPRAMIDE HCL INJ/PF 10 MG/2 ML SDV IV SCH ×5 (00:07→22:48)
[2018-08-25 05:41] LABS: ABSOLUTE BASOPHILS # (AUTO) 0.1 10^3/uL (0.0-0.2); ABSOLUTE EOSINOPHILS # (AUTO) 0.1 10^3/uL (0.0-0.6); ABSOLUTE LYMPHOCYTES (AUTO) 2.9 10^3/uL (0.5-4.7); ABSOLUTE MONOCYTES (AUTO) 0.5 10^3/uL (0.1-1.4); ABSOLUTE NEUT (AUTO) 4.3 10^3/uL (1.7-8.2); BASOPHILS % (AUTO) 0.8 % (0-2); EOSINOPHILS % (AUTO) 1.2 % (0-6); HEMOGLOBIN 12.1 g/dL (12.0-15.5); LYMPHOCYTES % (AUTO) 36.7 % (13-45); MEAN CORPUSCULAR HEMOGLOBIN 26.2 pg (27.0-33.4); MEAN CORPUSCULAR HGB CONC 32.7 g/dL (32.0-36.0); MEAN CORPUSCULAR VOLUME 80 fl (80-97); MONOCYTES % (AUTO) 6.4 % (3-13); PLATELET COUNT 320 10^3/uL (150-450); RED BLOOD COUNT 4.61 10^6/uL (3.72-5.28); RED CELL DISTRIBUTION WIDTH 14.8 % (11.5-14.0); SEGMENTED NEUTROPHILS % (AUTO) 54.9 % (42-78); TOTAL CELLS COUNTED % (AUTO) 100 %; WHITE BLOOD COUNT 7.8 10^3/uL (4.0-10.5)
[2018-08-25] MEDS: HYDRALAZINE HCL 10 MG TABLET PO SCH (06:00)
[2018-08-25] MEDS: HEPARIN SOD (PORCINE) 5,000 UNIT/ML 1 ML SYRINGE SUBCUT SCH ×3 (06:01→22:49)
[2018-08-25 06:05] LABS: ANION GAP 7 (5-19); BLOOD UREA NITROGEN 14 mg/dL (7-20); CALCIUM 8.7 mg/dL (8.4-10.2); CARBON DIOXIDE 25 mmol/L (22-30); CHLORIDE 108 mmol/L (98-107); GLUCOSE 141 mg/dL (75-110); POTASSIUM 3.4 mmol/L (3.6-5.0)
[2018-08-25] MEDS: SUCRALFATE SUSP 1 GM/10 ML UDCUP PO SCH ×4 (08:10→22:49)
[2018-08-25] MEDS: HYDROCHLOROTHIAZIDE 12.5 MG TABLET PO SCH (08:11)
[2018-08-25] MEDS: METOPROLOL SUCCINATE 25 MG TAB.SR.24H PO SCH ×2 (10:04→22:47)
[2018-08-25] MEDS: AMLODIPINE BESYLATE 5 MG TABLET PO SCH (10:04)
[2018-08-25] MEDS: LISINOPRIL 10 MG TABLET PO SCH (10:04)
[2018-08-25] MEDS: PANTOPRAZOLE SODIUM 40 MG VIAL IV SCH ×2 (10:10→22:48)
[2018-08-25] MEDS: DOCUSATE SODIUM 100 MG CAPSULE PO SCH ×2 (10:10→18:16)
[2018-08-25] MEDS ORDERED: AMLODIPINE BESYLATE 5 MG TABLET PO ONE (11:28)
[2018-08-25] MEDS ORDERED: HYDRALAZINE HCL INJ/PF 20 MG/1 ML SDV IV ONE (11:28)
[2018-08-25] MEDS ORDERED: HYDRALAZINE HCL 10 MG TABLET PO SCH (14:00)
--- NOTE | 2018-08-25 15:54 | PDOC PROGRESS REPORT ---
Subjective Progress Note for:: 08/25/18 Subjective:: No adverse events overnight. No new complaints. Vital signs been stable. She is not complaining of any abdominal pain. No nausea or vomiting. Blood pressures were high this morning but came down after she got her medications. Reason For Visit: CHOLECYSTITIS, HYPERTENSIVE CRISIS Physical Exam Vital Signs: Temp Pulse Resp BP Pulse Ox 97.6 F 83 20 145/74 H 100 08/25/18 11:22 08/25/18 13:45 08/25/18 07:52 08/25/18 13:45 08/25/18 13:45 Intake & Output 08/24/18 08/25/18 08/26/18 06:59 06:59 06:59 Intake Total 2755 1813 200 Balance 2755 1813 200 Weight 93.2 kg 96 kg General appearance: PRESENT: no acute distress, cooperative, disheveled, morbidly obese Respiratory exam: PRESENT: clear to auscultation ac, symmetrical, unlabored. ABSENT: accessory muscle use, crackles, prolonged expiratory phas, rhonchi, tachypnea, wheezes Cardiovascular exam: PRESENT: RRR, +S1, +S2 Pulses: PRESENT: normal carotid pulses Vascular exam: PRESENT: normal capillary refill GI/Abdominal exam: PRESENT: normal bowel sounds, soft, tenderness - Right upper quadrant. ABSENT: distended, guarding, rebound Extremities exam: ABSENT: clubbing, pedal edema Musculoskeletal exam: PRESENT: normal inspection. ABSENT: deformity Neurological exam: PRESENT: awake, oriented to person, oriented to place, oriented to situation Psychiatric exam: PRESENT: flat affect, normal mood Skin exam: PRESENT: dry, warm Results Laboratory Results: 08/25/18 04:30 08/25/18 04:30 08/25/18 08/25/18 04:30 04:30 WBC 7.8 RBC 4.61 Hgb 12.1 Hct 37.0 MCV 80 MCH 26.2 L MCHC 32.7 RDW 14.8 H Plt Count 320 Seg Neutrophils % 54.9 Lymphocytes % 36.7 Monocytes % 6.4 Eosinophils % 1.2 Basophils % 0.8 Absolute Neutrophils 4.3 Absolute Lymphocytes 2.9 Absolute Monocytes 0.5 Absolute Eosinophils 0.1 Absolute Basophils 0.1 Sodium 140.0 Potassium 3.4 L Chloride 108 H Carbon Dioxide 25 Anion Gap 7 BUN 14 Creatinine 0.76 Est GFR ( Amer) > 60 Est GFR (Non-Af Amer) > 60 Glucose 141 H Calcium 8.7 Magnesium 1.8 08/22/18 19:08 Clean Catch Midstream Urine Culture - Final Mixed Urogenital Cassandra 08/22/18 08/22/18 08/23/18 16:00 20:28 02:24 Creatine Kinase CK-MB (CK-2) 0.42 Troponin I 0.044 0.037 0.035 08/23/18 08/23/18 08/23/18 02:24 09:19 09:19 Creatine Kinase 76 80 CK-MB (CK-2) 0.32 Troponin I 0.034 08/23/18 08/23/18 15:47 15:47 Creatine Kinase 62 CK-MB (CK-2) 0.37 Troponin I 0.032 Impressions: Chest X-Ray 08/22/18 15:40 IMPRESSION: NO ACUTE RADIOGRAPHIC FINDING IN THE CHEST. Abdomen/Pelvis CT 08/22/18 19:24 IMPRESSION: Abnormal appearance to the gallbladder, suspicious for cholecystitis. Correlate with history and patient exam. Fatty infiltrative change to the liver. Simple left renal cyst TECHNICAL DOCUMENTATION: Quality ID # 436: Final reports with documentation of one or more dose reduction techniques (e.g., Automated exposure control, adjustment of the mA and/or kV according to patient size, use of iterative reconstruction technique) copyright 2011 [employer]- All Rights Reserved Assessment & Plan - Diagnosis (1) Acute cholecystitis Is this a current diagnosis for this admission?: Yes Plan: Plan for cholecystectomy when her blood pressure has improved. N.p.o. for now awaiting the OR. We will continue antibiotics until she is had her procedure. (2) Diabetes mellitus type 2 in obese Is this a current diagnosis for this admission?: Yes Plan: Blood sugars have been relatively well controlled for us. Suspect a high degree of noncompliance at home. She says she has not had any of her medication in 2-3 weeks. (3) Hypertensive urgency Is this a current diagnosis for this admission?: Yes Plan: Improved with medication adjustments. Blood pressures are more reasonable now. - Time Time Spent with patient: 25-34 minutes
--- NOTE | 2018-08-25 17:16 | RADIOLOGY REPORT (SQ) ---
EXAM DESCRIPTION: U/S RETROPERITON (RENAL/AORTA) COMPLETED DATE/TIME: 08/25/2018 5:04 pm REASON FOR STUDY: resistent hypertension COMPARISON: None. TECHNIQUE: Dynamic and static grayscale images acquired of the kidneys and bladder and recorded on P ACS. Additional selected color Doppler and spectral images recorded. LIMITATIONS: None. FINDINGS: RIGHT KIDNEY: Normal size measuring 10.9 cm. Normal echogenicity. No solid or suspicious masses. No hydronephrosis. No calcifications. LEFT KIDNEY: Normal size measuring 12.2 cm. There is a lower pole cyst measuring 2 point 8 cm with thin septation. . No internal vascular flow. No solid or suspicious masses. No hydronephrosis. No calcifications. BLADDER: No masses. OTHER FINDINGS: No other significant finding. IMPRESSION: 1.No hydronephrosis. 2. 2.8 cm left renal cyst. TECHNICAL DOCUMENTATION: JOB ID: [id number] [employer]- All Rights Reserved Reading location - IP/workstation name: [email or web address]
[2018-08-25] MEDS: HYDRALAZINE HCL 50 MG TABLET PO SCH ×2 (18:38→22:48)
--- NOTE | 2018-08-25 18:40 | RADIOLOGY REPORT (SQ) ---
EXAM DESCRIPTION: U/S ABDOMEN LIMITED W/O DOP COMPLETED DATE/TIME: 08/25/2018 6:20 pm REASON FOR STUDY: cholecystitis COMPARISON: 01/06/2015 TECHNIQUE: Dynamic and static grayscale images acquired of the abdomen and recorded on PACS. Marilyn talley selected color Doppler and spectral images recorded. LIMITATIONS: None. FINDINGS: PANCREAS: No masses. Visualized pancreatic duct normal caliber. LIVER: No masses. Echotexture normal. LIVER VASCULATURE: Normal directional flow of the main portal vein and hepatic veins. GALLBLADDER: No gallstones. There is thickening of the gallbladder wall and a minimal amount of simón cholecystic fluid. ULTRASOUND-DETECTED ALMAZAN'S SIGN: Negative. INTRAHEPATIC DUCTS AND COMMON DUCT: CBD and intrahepatic ducts normal caliber. No filling defects. INFERIOR VENA CAVA: Not imaged. AORTA: No aneurysm. RIGHT KIDNEY: Normal size, 11.5 cm. . Normal echogenicity. No solid or suspicious masses. No hydron ephrosis. No calcifications. PERITONEAL AND RIGHT PLEURAL SPACE: Small right pleural effusion. OTHER: No other significant findings. IMPRESSION: Thickening of the gallbladder wall with a small amount of pericholecystic fluid. Slight ly concerning for acalculous cholecystitis. Negative sonographic Almazan sign. Small right pleural e ffusion. TECHNICAL DOCUMENTATION: JOB ID: [id number] [employer]- All Rights Reserved Reading location - IP/workstation name: [email or web address]
[2018-08-25] MEDS: INSULIN GLARGINE,HUM.REC.ANLOG 300 UNIT/3 ML INSULN.PEN SUBCUT SCH (22:48)
--- NOTE | 2018-08-25 23:37 | PDOC PROGRESS REPORT ---
Subjective Progress Note for:: 08/25/18 Subjective:: RUQ pains Reason For Visit: CHOLECYSTITIS, HYPERTENSIVE CRISIS Physical Exam Vital Signs: Temp Pulse Resp BP Pulse Ox 98.5 F 99 20 143/77 H 100 08/25/18 19:47 08/25/18 19:47 08/25/18 19:47 08/25/18 19:47 08/25/18 19:47 Intake & Output 08/24/18 08/25/18 08/26/18 06:59 06:59 06:59 Intake Total 2755 1813 300 Balance 2755 1813 300 Weight 93.2 kg 96 kg Exam: abdomen is soft with tenderness at the RUQ Results Laboratory Results: 08/25/18 04:30 08/25/18 04:30 08/25/18 08/25/18 04:30 04:30 WBC 7.8 RBC 4.61 Hgb 12.1 Hct 37.0 MCV 80 MCH 26.2 L MCHC 32.7 RDW 14.8 H Plt Count 320 Seg Neutrophils % 54.9 Lymphocytes % 36.7 Monocytes % 6.4 Eosinophils % 1.2 Basophils % 0.8 Absolute Neutrophils 4.3 Absolute Lymphocytes 2.9 Absolute Monocytes 0.5 Absolute Eosinophils 0.1 Absolute Basophils 0.1 Sodium 140.0 Potassium 3.4 L Chloride 108 H Carbon Dioxide 25 Anion Gap 7 BUN 14 Creatinine 0.76 Est GFR ( Amer) > 60 Est GFR (Non-Af Amer) > 60 Glucose 141 H Calcium 8.7 Magnesium 1.8 08/22/18 08/22/18 08/23/18 16:00 20:28 02:24 Creatine Kinase CK-MB (CK-2) 0.42 Troponin I 0.044 0.037 0.035 08/23/18 08/23/18 08/23/18 02:24 09:19 09:19 Creatine Kinase 76 80 CK-MB (CK-2) 0.32 Troponin I 0.034 08/23/18 08/23/18 15:47 15:47 Creatine Kinase 62 CK-MB (CK-2) 0.37 Troponin I 0.032 Impressions: Chest X-Ray 08/22/18 15:40 IMPRESSION: NO ACUTE RADIOGRAPHIC FINDING IN THE CHEST. Abdomen/Pelvis CT 08/22/18 19:24 IMPRESSION: Abnormal appearance to the gallbladder, suspicious for cholecystitis. Correlate with history and patient exam. Fatty infiltrative change to the liver. Simple left renal cyst TECHNICAL DOCUMENTATION: Quality ID # 436: Final reports with documentation of one or more dose reduction techniques (e.g., Automated exposure control, adjustment of the mA and/or kV according to patient size, use of iterative reconstruction technique) copyright 2011 [employer]- All Rights Reserved Abdomen Ultrasound 08/25/18 00:00 IMPRESSION: Thickening of the gallbladder wall with a small amount of pericholecystic fluid. Slightly concerning for acalculous cholecystitis. Negative sonographic Rojas sign. Small right pleural effusion. Renal Ultrasound 08/25/18 00:00 IMPRESSION: 1.No hydronephrosis. 2. 2.8 cm left renal cyst. Assessment & Plan - Diagnosis (1) Acute cholecystitis Is this a current diagnosis for this admission?: Yes (2) Coronary artery disease Qualifiers: Coronary Disease-Associated Artery/Lesion type: [place] artery [place] vs. transplanted heart: [place] heart Associated angina: angina presence unspecified Qualified Code(s): I25.10 - Atherosclerotic heart disease of [place] coronary artery without angina pectoris Is this a current diagnosis for this admission?: Yes (3) Acute on chronic systolic (congestive) heart failure Is this a current diagnosis for this admission?: No (4) Cardiomyopathy Qualifiers: Cardiomyopathy type: unspecified Qualified Code(s): I42.9 - Cardiomyopathy, unspecified Is this a current diagnosis for this admission?: No (5) Congestive heart failure Qualifiers: Heart failure type: combined systolic and diastolic Heart failure chronicity: chronic Qualified Code(s): I50.42 - Chronic combined systolic (congestive) and diastolic (congestive) heart failure Is this a current diagnosis for this admission?: Yes - Time Time Spent with patient: 15-24 minutes - Plan Summary Plan Summary: Had an ultrasound today which showed acalculus cholecystitis Bumped into Dr 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 Dr Webb called me back from his office telling me patient had a cardiac cath in 2017 which showe dnormal coronary arteries. Had an Echo same time which showed an ejection fraction of 40-45%. 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 Will tentatively schedule for Lap Caridad tomorrow.
--- NOTE | 2018-08-25 23:52 | XCELERA REPORT ---
[address] [address] Transthoracic Echocardiogram Report Name: PHILLIP DORANTES Age: 48 yrs Gender: Female : 1970 Patient Status: Inpatient Patient Location: [address] [place] [address] Study Date: 08/25/2018 09:38 PM Height: 62 in Weight: 211 lb BSA: 2.0 m2 Procedure: A two-dimensional transthoracic echocardiogram with color flow and Doppler was performed. The study was technically difficult with many images being suboptimal in quality. Images were not obtained from all of the standard acoustic windows due to the limited scope of the study. Reason For Study: Cardiac clearance for surgery History: MURMUR / Preop Cardiac Risk assessment. Ordering Physician: DANIELE ORTIZ Performed By: Kellie Thompson Interpretation Summary LV EF is 40% Doppler measurements suggest normal left ventricular diastolic function There is no thrombus. Images were not obtained from all of the standard acoustic windows due to the limited scope of the study. The left ventricle is mildly dilated. No True apical 2 chamber views obtained.Hence cannot comment on the apical anterior , the basal anterior, the basal inferior and apical inferior vargas.The mid anterior , the mid inferior and the rest of the LV vargas are moderately hypokinetic.LVEF is moderately ly reduced at 40%. The right ventricle is not well visualized secondary to technical limitations The left atrial size is normal. There is no evidence of mitral valve prolapse. There is no vegetation seen on the mitral valve. There is no mitral valve stenosis. There is a mild to moderate amount of mitral regurgitation There is no aortic valve stenosis There is a mild amount of aortic regurgitation There is no tricuspid stenosis. There is a mild to moderate amount of tricuspid regurgitation There is servere pulmonary hypertension by echo RVSP is at least 66 mmof Hg , with R mean of 20. There is no pulmonic valvular stenosis. The inferior vena cava appeared dilated and did not change with respiration (RAP > 20 mmHg) Minimal pericardial effusion. There are no echocardiographic or Doppler indications for cardiac tamponade MMode/2D Measurements & Calculations RVDd: 2.9 cm LVIDd: 5.1 cm FS: 19.3 % Ao root diam: 2.4 cm IVSd: 1.1 cm LVIDs: 4.2 cm EDV(Teich): 126.4 ml Ao root area: 4.7 cm2 LVPWd: 1.1 cm ESV(Teich): 76.4 ml LA dimension: 4.0 cm EF(Teich): 39.5 % Doppler Measurements & Calculations MV E max christo: MV P1/2t max christo: Ao V2 max: AI max christo: 123.9 cm/sec 158.5 cm/sec 157.5 cm/sec 379.5 cm/sec MV A max christo: MV P1/2t: 50.2 msec Ao max PG: AI max P.8 cm/sec MVA(P1/2t): 4.4 cm2 9.9 mmHg 58.5 mmHg MV E/A: 1.4 MV dec slope: AI dec slope: 162.5 cm/sec2 925.2 cm/sec2 AI P1/2t: MV dec time: 684.0 msec 0.19 sec LV V1 max PG: PA V2 max: PI end-d christo: TR max christo: 2.5 mmHg 114.0 cm/sec 157.5 cm/sec 339.9 cm/sec LV V1 max: PA max P.2 mmHg TR max P.4 cm/sec 46.2 mmHg AV P1/2t-pr_phl: MV P1/2t-pr_phl: 744.0 msec 50.2 msec Left Ventricle There is normal left ventricular wall thickness. The left ventricle is mildly dilated. LV EF is 40%. No True apical 2 chamber views obtained.Hence cannot comment on the apical anterior , the basal anterior, the basal inferior and apical inferior vargas.The mid anterior , the mid inferior and the rest of the LV vargas are moderately hypokinetic.LVEF is moderately ly reduced at 40%. Doppler measurements suggest normal left ventricular diastolic function. There is no thrombus. Right Ventricle The right ventricle is not well visualized secondary to technical limitations. Atria The right atrium is mildly dilated. The left atrial size is normal. Mitral Valve There is no evidence of mitral valve prolapse. There is no vegetation seen on the mitral valve. There is no mitral valve stenosis. There is a mild to moderate amount of mitral regurgitation. Aortic Valve There is no aortic valvular vegetation. There is no aortic valve stenosis. There is a mild amount of aortic regurgitation. Tricuspid Valve There is no tricuspid stenosis. There is a mild to moderate amount of tricuspid regurgitation. RVSP is at least 66 mmof Hg , with R mean of 20. There is servere pulmonary hypertension by echo. Pulmonic Valve There is no pulmonic valvular stenosis. There is a trace amount of pulmonic regurgitation. Great Vessels The aortic root is normal size. The inferior vena cava appeared dilated and did not change with respiration (RAP > 20 mmHg). Effusions Minimal pericardial effusion. There are no echocardiographic or Doppler indications for cardiac tamponade. : DANIELE ORTIZ > Celine Dorsey
[2018-08-26] MEDS: PIPERACILLIN SODIUM/TAZOBACTAM 3.375 GM in NORMAL SALINE 100 ML IV SCH ×4 (00:56→17:01)
[2018-08-26] MEDS: HEPARIN SOD (PORCINE) 5,000 UNIT/ML 1 ML SYRINGE SUBCUT SCH ×3 (05:31→22:02)
[2018-08-26] MEDS: HYDRALAZINE HCL 50 MG TABLET PO SCH ×3 (05:31→22:01)
[2018-08-26 06:38] LABS: ABSOLUTE EOSINOPHILS # (AUTO) 0.1 10^3/uL (0.0-0.6); ABSOLUTE LYMPHOCYTES (AUTO) 1.7 10^3/uL (0.5-4.7); ABSOLUTE MONOCYTES (AUTO) 0.5 10^3/uL (0.1-1.4); ABSOLUTE NEUT (AUTO) 3.3 10^3/uL (1.7-8.2); BASOPHILS % (AUTO) 0.8 % (0-2); EOSINOPHILS % (AUTO) 1.3 % (0-6); HEMATOCRIT 35.5 % (36.0-47.0); HEMOGLOBIN 11.6 g/dL (12.0-15.5); MEAN CORPUSCULAR HEMOGLOBIN 25.8 pg (27.0-33.4); MEAN CORPUSCULAR HGB CONC 32.6 g/dL (32.0-36.0); MEAN CORPUSCULAR VOLUME 79 fl (80-97); MONOCYTES % (AUTO) 8.8 % (3-13); PLATELET COUNT 296 10^3/uL (150-450); RED BLOOD COUNT 4.49 10^6/uL (3.72-5.28); RED CELL DISTRIBUTION WIDTH 15.3 % (11.5-14.0); SEGMENTED NEUTROPHILS % (AUTO) 59.1 % (42-78); TOTAL CELLS COUNTED % (AUTO) 100 %; WHITE BLOOD COUNT 5.6 10^3/uL (4.0-10.5)
[2018-08-26 06:55] LABS: ALANINE AMINOTRANSFERASE 266 U/L (9-52); ALBUMIN 2.9 g/dL (3.5-5.0); ALKALINE PHOSPHATASE 149 U/L (38-126); ANION GAP 7 (5-19); ASPARTATE AMINO TRANSFERASE 594 U/L (14-36); BILIRUBIN,DIRECT 0.6 mg/dL (0.0-0.4); BILIRUBIN,TOTAL 1.3 mg/dL (0.2-1.3); BLOOD UREA NITROGEN 8 mg/dL (7-20); CALCIUM 8.8 mg/dL (8.4-10.2); CARBON DIOXIDE 27 mmol/L (22-30); CHLORIDE 106 mmol/L (98-107); GLUCOSE 99 mg/dL (75-110); POTASSIUM 3.2 mmol/L (3.6-5.0); SODIUM 140.4 mmol/L (137-145); TOTAL PROTEIN 5.9 g/dL (6.3-8.2)
[2018-08-26] MEDS: METOCLOPRAMIDE HCL INJ/PF 10 MG/2 ML SDV IV SCH ×4 (08:03→22:02)
[2018-08-26] MEDS: HYDROCHLOROTHIAZIDE 12.5 MG TABLET PO SCH (08:03)
[2018-08-26] MEDS: METOPROLOL SUCCINATE 25 MG TAB.SR.24H PO SCH ×2 (09:27→22:01)
[2018-08-26] MEDS: AMLODIPINE BESYLATE 10 MG TABLET PO SCH (09:27)
[2018-08-26] MEDS: LISINOPRIL 10 MG TABLET PO SCH (09:27)
[2018-08-26] MEDS: SUCRALFATE SUSP 1 GM/10 ML UDCUP PO SCH ×4 (09:28→22:02)
[2018-08-26] MEDS: DOCUSATE SODIUM 100 MG CAPSULE PO SCH ×2 (09:28→17:01)
[2018-08-26] MEDS ORDERED: AMLODIPINE BESYLATE 5 MG TABLET PO SCH (10:00)
--- NOTE | 2018-08-26 12:26 | PDOC PROGRESS REPORT ---
Subjective Progress Note for:: 08/26/18 Subjective:: Epigastric abdominal pain has much improved Reason For Visit: CHOLECYSTITIS, HYPERTENSIVE CRISIS Physical Exam Vital Signs: Temp Pulse Resp BP Pulse Ox 98.4 F 87 20 154/95 H 96 08/26/18 11:08 08/26/18 11:08 08/26/18 11:08 08/26/18 11:08 08/26/18 11:08 Intake & Output 08/25/18 08/26/18 08/27/18 06:59 06:59 06:59 Intake Total 1813 740 Balance 1813 740 Weight 96 kg 92.1 kg General appearance: PRESENT: no acute distress, cooperative Respiratory exam: PRESENT: clear to auscultation ac Cardiovascular exam: PRESENT: RRR GI/Abdominal exam: PRESENT: other - Soft, tenderness at the epigastric region in the right upper quadrant without peritoneal signs. Results Laboratory Results: 08/26/18 05:05 08/26/18 05:05 08/26/18 08/26/18 05:05 05:05 WBC 5.6 RBC 4.49 Hgb 11.6 L Hct 35.5 L MCV 79 L MCH 25.8 L MCHC 32.6 RDW 15.3 H Plt Count 296 Seg Neutrophils % 59.1 Lymphocytes % 30.0 Monocytes % 8.8 Eosinophils % 1.3 Basophils % 0.8 Absolute Neutrophils 3.3 Absolute Lymphocytes 1.7 Absolute Monocytes 0.5 Absolute Eosinophils 0.1 Absolute Basophils 0.0 Sodium 140.4 Potassium 3.2 L Chloride 106 Carbon Dioxide 27 Anion Gap 7 BUN 8 Creatinine 0.67 Est GFR ( Amer) > 60 Est GFR (Non-Af Amer) > 60 Glucose 99 Calcium 8.8 Total Bilirubin 1.3 AST 594 H ALT 266 H Alkaline Phosphatase 149 H Total Protein 5.9 L Albumin 2.9 L 08/22/18 20:28 Blood Blood Culture - Final Staphylococcus Hominis 08/22/18 08/22/18 08/23/18 16:00 20:28 02:24 Creatine Kinase CK-MB (CK-2) 0.42 Troponin I 0.044 0.037 0.035 08/23/18 08/23/18 08/23/18 02:24 09:19 09:19 Creatine Kinase 76 80 CK-MB (CK-2) 0.32 Troponin I 0.034 08/23/18 08/23/18 15:47 15:47 Creatine Kinase 62 CK-MB (CK-2) 0.37 Troponin I 0.032 Impressions: Chest X-Ray 08/22/18 15:40 IMPRESSION: NO ACUTE RADIOGRAPHIC FINDING IN THE CHEST. Abdomen/Pelvis CT 08/22/18 19:24 IMPRESSION: Abnormal appearance to the gallbladder, suspicious for cholecystitis. Correlate with history and patient exam. Fatty infiltrative change to the liver. Simple left renal cyst TECHNICAL DOCUMENTATION: Quality ID # 436: Final reports with documentation of one or more dose reduction techniques (e.g., Automated exposure control, adjustment of the mA and/or kV according to patient size, use of iterative reconstruction technique) copyright 2011 [employer] All Rights Reserved Abdomen Ultrasound 08/25/18 00:00 IMPRESSION: Thickening of the gallbladder wall with a small amount of pericholecystic fluid. Slightly concerning for acalculous cholecystitis. Negative sonographic Rojas sign. Small right pleural effusion. Renal Ultrasound 08/25/18 00:00 IMPRESSION: 1.No hydronephrosis. 2. 2.8 cm left renal cyst. Assessment & Plan - Diagnosis (1) Acalculous cholecystitis Is this a current diagnosis for this admission?: Yes Plan: Patient has marked elevations of her liver enzymes. Uncertain of the etiology in the setting of acalculus cholecystitis. Will obtain an MRCP and check a hepatitis panel.
[2018-08-26] MEDS ORDERED: POTASSIUM CHLORIDE 10 MEQ CAPSULE.ER PO ONE (14:30)
--- NOTE | 2018-08-26 16:23 | PDOC PROGRESS REPORT ---
Subjective Progress Note for:: 08/26/18 Subjective:: No adverse events overnight. No new complaints. Vital signs are stable. Blood pressure has improved. Abdominal pain is minimal. No nausea or vomiting. She is n.p.o. today for possible cholecystectomy. Reason For Visit: CHOLECYSTITIS, HYPERTENSIVE CRISIS Physical Exam Vital Signs: Temp Pulse Resp BP Pulse Ox 98.4 F 94 20 154/95 H 96 08/26/18 11:08 08/26/18 14:00 08/26/18 11:08 08/26/18 11:08 08/26/18 11:08 Intake & Output 08/25/18 08/26/18 08/27/18 06:59 06:59 06:59 Intake Total 1813 740 100 Balance 1813 740 100 Weight 96 kg 92.1 kg General appearance: PRESENT: no acute distress, cooperative, disheveled, morbidly obese Respiratory exam: PRESENT: clear to auscultation ac, symmetrical, unlabored. ABSENT: accessory muscle use, crackles, prolonged expiratory phas, rhonchi, tachypnea, wheezes Cardiovascular exam: PRESENT: RRR, +S1, +S2 Pulses: PRESENT: normal carotid pulses Vascular exam: PRESENT: normal capillary refill GI/Abdominal exam: PRESENT: normal bowel sounds, soft, tenderness - Right upper quadrant. ABSENT: distended, guarding, rebound Extremities exam: ABSENT: clubbing, pedal edema Musculoskeletal exam: PRESENT: normal inspection. ABSENT: deformity Neurological exam: PRESENT: awake, oriented to person, oriented to place, oriented to situation Psychiatric exam: PRESENT: flat affect, normal mood Skin exam: PRESENT: dry, warm Results Laboratory Results: 08/26/18 05:05 08/26/18 05:05 08/26/18 08/26/18 05:05 05:05 WBC 5.6 RBC 4.49 Hgb 11.6 L Hct 35.5 L MCV 79 L MCH 25.8 L MCHC 32.6 RDW 15.3 H Plt Count 296 Seg Neutrophils % 59.1 Lymphocytes % 30.0 Monocytes % 8.8 Eosinophils % 1.3 Basophils % 0.8 Absolute Neutrophils 3.3 Absolute Lymphocytes 1.7 Absolute Monocytes 0.5 Absolute Eosinophils 0.1 Absolute Basophils 0.0 Sodium 140.4 Potassium 3.2 L Chloride 106 Carbon Dioxide 27 Anion Gap 7 BUN 8 Creatinine 0.67 Est GFR ( Amer) > 60 Est GFR (Non-Af Amer) > 60 Glucose 99 Calcium 8.8 Total Bilirubin 1.3 AST 594 H ALT 266 H Alkaline Phosphatase 149 H Total Protein 5.9 L Albumin 2.9 L 08/22/18 20:28 Blood Blood Culture - Final Staphylococcus Hominis 08/22/18 08/22/18 08/23/18 16:00 20:28 02:24 Creatine Kinase CK-MB (CK-2) 0.42 Troponin I 0.044 0.037 0.035 08/23/18 08/23/18 08/23/18 02:24 09:19 09:19 Creatine Kinase 76 80 CK-MB (CK-2) 0.32 Troponin I 0.034 08/23/18 08/23/18 15:47 15:47 Creatine Kinase 62 CK-MB (CK-2) 0.37 Troponin I 0.032 Impressions: Chest X-Ray 08/22/18 15:40 IMPRESSION: NO ACUTE RADIOGRAPHIC FINDING IN THE CHEST. Abdomen/Pelvis CT 08/22/18 19:24 IMPRESSION: Abnormal appearance to the gallbladder, suspicious for cholecystitis. Correlate with history and patient exam. Fatty infiltrative change to the liver. Simple left renal cyst TECHNICAL DOCUMENTATION: Quality ID # 436: Final reports with documentation of one or more dose reduction techniques (e.g., Automated exposure control, adjustment of the mA and/or kV according to patient size, use of iterative reconstruction technique) copyright 2011 [employer]- All Rights Reserved Abdomen Ultrasound 08/25/18 00:00 IMPRESSION: Thickening of the gallbladder wall with a small amount of pericholecystic fluid. Slightly concerning for acalculous cholecystitis. Negative sonographic Rojas sign. Small right pleural effusion. Renal Ultrasound 08/25/18 00:00 IMPRESSION: 1.No hydronephrosis. 2. 2.8 cm left renal cyst. Assessment & Plan - Diagnosis (1) Acute cholecystitis Is this a current diagnosis for this admission?: Yes Plan: Plan is per surgery. Looks like an abdominal MRI has been ordered. We will follow-up the results and surgery recommendations. (2) Diabetes mellitus type 2 in obese Is this a current diagnosis for this admission?: Yes Plan: Blood sugars have been relatively well controlled for us. Suspect a high degree of noncompliance at home. She says she has not had any of her medication in 2-3 weeks. (3) Hypertensive urgency Is this a current diagnosis for this admission?: Yes Plan: Improved with medication adjustments. Blood pressures are more reasonable now. - Time Time Spent with patient: 25-34 minutes
--- NOTE | 2018-08-26 16:30 | RADIOLOGY REPORT (SQ) ---
EXAM DESCRIPTION: MRI ABDOMEN WITHOUT COMPLETED DATE/TIME: 08/26/2018 3:25 pm REASON FOR STUDY: elevated liver enzymes, cholelithasis COMPARISON: None. TECHNIQUE: Noncontrast MRCP. Source and MIP images reviewed. LIMITATIONS: Motion. FINDINGS: GALLBLADDER: No stones. Thickened gallbladder wall. Trace of pericholecystic fluid. INTRAHEPATIC DUCTS: Nondilated. EXTRAHEPATIC DUCTS: Common duct is normal caliber. No dilatation of the pancreatic duct. No ductal filling defects noted. PANCREAS: Generally homogeneous, no gross mass or significant signal alteration. No surrounding infl ammatory changes or fluid. Pancreatic duct is normal. LIVER, SPLEEN, KIDNEYS, ADRENALS: Nothing acute. VESSELS: No aneurysm. LUNG BASES: Trace pleural effusions. Cardiomegaly. OTHER: No other significant finding. IMPRESSION: Thickened gallbladder wall and trace of pericholecystic fluid suggesting acalculous chol ecystitis. No common bile duct stone or biliary dilatation. TECHNICAL DOCUMENTATION: JOB ID: [id number] [employer]- All Rights Reserved Reading location - IP/workstation name: [email or web address]
--- NOTE | 2018-08-26 20:00 | PDOC CONSULTATION ---
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 (Auto) U Hyaline Cast (Auto) Urine Bacteria (Auto) Squamous Epi Cells Auto Urine Mucus (Auto) Urine Ascorbic Acid 08/23/18 08/24/18 08/24/18 22:37 05:44 05:44 WBC 6.9 RBC 4.39 Hgb 11.4 L Hct 35.5 L MCV 81 MCH 26.1 L MCHC 32.3 RDW 14.7 H Plt Count 309 Seg Neutrophils % 51.1 Lymphocytes % 38.8 Monocytes % 7.3 Eosinophils % 1.6 Basophils % 1.2 Absolute Neutrophils 3.5 Absolute Lymphocytes 2.7 Absolute Monocytes 0.5 Absolute Eosinophils 0.1 Absolute Basophils 0.1 PT INR VBG pH VBG pCO2 VBG HCO3 VBG Base Excess Sodium 140.3 Potassium 3.1 L Chloride 108 H Carbon Dioxide 26 Anion Gap 6 BUN 11 Creatinine 0.76 Est GFR ( Amer) > 60 Est GFR (Non-Af Amer) > 60 Glucose 90 POC Glucose 113 H Hemoglobin A1c % Lactic Acid Calcium 8.5 Magnesium 1.9 Total Bilirubin Direct Bilirubin Neonat Total Bilirubin Neonat Direct Bilirubin Neonat Indirect Bili AST ALT Alkaline Phosphatase Creatine Kinase CK-MB (CK-2) Troponin I Total Protein Albumin Triglycerides Cholesterol LDL Cholesterol Direct VLDL Cholesterol HDL Cholesterol Amylase Lipase TSH Free T4 Free T3 pg/mL Urine Color Urine Appearance Urine pH Ur Specific Schuyler Urine Protein Urine Glucose (UA) Urine Ketones Urine Blood Urine Nitrite Urine Bilirubin Urine Urobilinogen Ur Leukocyte Esterase Urine WBC (Auto) Urine RBC (Auto) U Hyaline Cast (Auto) Urine Bacteria (Auto) Squamous Epi Cells Auto Urine Mucus (Auto) Urine Ascorbic Acid 08/24/18 08/24/18 08/24/18 07:45 12:08 16:22 WBC RBC Hgb Hct MCV MCH MCHC RDW Plt Count Seg Neutrophils % Lymphocytes % Monocytes % Eosinophils % Basophils % Absolute Neutrophils Absolute Lymphocytes Absolute Monocytes Absolute Eosinophils Absolute Basophils PT INR VBG pH VBG pCO2 VBG HCO3 VBG Base Excess Sodium Potassium Chloride Carbon Dioxide Anion Gap BUN Creatinine Est GFR ( Amer) Est GFR (Non-Af Amer) Glucose POC Glucose 92 102 184 H Hemoglobin A1c % Lactic Acid Calcium Magnesium Total Bilirubin Direct Bilirubin Neonat Total Bilirubin Neonat Direct Bilirubin Neonat Indirect Bili AST ALT Alkaline Phosphatase Creatine Kinase CK-MB (CK-2) Troponin I Total Protein Albumin Triglycerides Cholesterol LDL Cholesterol Direct VLDL Cholesterol HDL Cholesterol Amylase Lipase TSH Free T4 Free T3 pg/mL Urine Color Urine Appearance Urine pH Ur Specific Schuyler Urine Protein Urine Glucose (UA) Urine Ketones Urine Blood Urine Nitrite Urine Bilirubin Urine Urobilinogen Ur Leukocyte Esterase Urine WBC (Auto) Urine RBC (Auto) U Hyaline Cast (Auto) Urine Bacteria (Auto) Squamous Epi Cells Auto Urine Mucus (Auto) Urine Ascorbic Acid 08/24/18 08/25/18 08/25/18 21:02 04:30 04:30 WBC 7.8 RBC 4.61 Hgb 12.1 Hct 37.0 MCV 80 MCH 26.2 L MCHC 32.7 RDW 14.8 H Plt Count 320 Seg Neutrophils % 54.9 Lymphocytes % 36.7 Monocytes % 6.4 Eosinophils % 1.2 Basophils % 0.8 Absolute Neutrophils 4.3 Absolute Lymphocytes 2.9 Absolute Monocytes 0.5 Absolute Eosinophils 0.1 Absolute Basophils 0.1 PT INR VBG pH VBG pCO2 VBG HCO3 VBG Base Excess Sodium 140.0 Potassium 3.4 L Chloride 108 H Carbon Dioxide 25 Anion Gap 7 BUN 14 Creatinine 0.76 Est GFR ( Amer) > 60 Est GFR (Non-Af Amer) > 60 Glucose 141 H POC Glucose 182 H Hemoglobin A1c % Lactic Acid Calcium 8.7 Magnesium 1.8 Total Bilirubin Direct Bilirubin Neonat Total Bilirubin Neonat Direct Bilirubin Neonat Indirect Bili AST ALT Alkaline Phosphatase Creatine Kinase CK-MB (CK-2) Troponin I Total Protein Albumin Triglycerides Cholesterol LDL Cholesterol Direct VLDL Cholesterol HDL Cholesterol Amylase Lipase TSH Free T4 Free T3 pg/mL Urine Color Urine Appearance Urine pH Ur Specific Schuyler Urine Protein Urine Glucose (UA) Urine Ketones Urine Blood Urine Nitrite Urine Bilirubin Urine Urobilinogen Ur Leukocyte Esterase Urine WBC (Auto) Urine RBC (Auto) U Hyaline Cast (Auto) Urine Bacteria (Auto) Squamous Epi Cells Auto Urine Mucus (Auto) Urine Ascorbic Acid 08/25/18 08/25/18 08/25/18 07:51 11:24 17:43 WBC RBC Hgb Hct MCV MCH MCHC RDW Plt Count Seg Neutrophils % Lymphocytes % Monocytes % Eosinophils % Basophils % Absolute Neutrophils Absolute Lymphocytes Absolute Monocytes Absolute Eosinophils Absolute Basophils PT INR VBG pH VBG pCO2 VBG HCO3 VBG Base Excess Sodium Potassium Chloride Carbon Dioxide Anion Gap BUN Creatinine Est GFR ( Amer) Est GFR (Non-Af Amer) Glucose POC Glucose 115 H 113 H 94 Hemoglobin A1c % Lactic Acid Calcium Magnesium Total Bilirubin Direct Bilirubin Neonat Total Bilirubin Neonat Direct Bilirubin Neonat Indirect Bili AST ALT Alkaline Phosphatase Creatine Kinase CK-MB (CK-2) Troponin I Total Protein Albumin Triglycerides Cholesterol LDL Cholesterol Direct VLDL Cholesterol HDL Cholesterol Amylase Lipase TSH Free T4 Free T3 pg/mL Urine Color Urine Appearance Urine pH Ur Specific Schuyler Urine Protein Urine Glucose (UA) Urine Ketones Urine Blood Urine Nitrite Urine Bilirubin Urine Urobilinogen Ur Leukocyte Esterase Urine WBC (Auto) Urine RBC (Auto) U Hyaline Cast (Auto) Urine Bacteria (Auto) Squamous Epi Cells Auto Urine Mucus (Auto) Urine Ascorbic Acid 08/25/18 08/26/18 08/26/18 21:28 05:05 05:05 WBC 5.6 RBC 4.49 Hgb 11.6 L Hct 35.5 L MCV 79 L MCH 25.8 L MCHC 32.6 RDW 15.3 H Plt Count 296 Seg Neutrophils % 59.1 Lymphocytes % 30.0 Monocytes % 8.8 Eosinophils % 1.3 Basophils % 0.8 Absolute Neutrophils 3.3 Absolute Lymphocytes 1.7 Absolute Monocytes 0.5 Absolute Eosinophils 0.1 Absolute Basophils 0.0 PT INR VBG pH VBG pCO2 VBG HCO3 VBG Base Excess Sodium 140.4 Potassium 3.2 L Chloride 106 Carbon Dioxide 27 Anion Gap 7 BUN 8 Creatinine 0.67 Est GFR ( Amer) > 60 Est GFR (Non-Af Amer) > 60 Glucose 99 POC Glucose 125 H Hemoglobin A1c % Lactic Acid Calcium 8.8 Magnesium Total Bilirubin 1.3 Direct Bilirubin 0.6 H Neonat Total Bilirubin Not Reportable Neonat Direct Bilirubin Not Reportable Neonat Indirect Bili Not Reportable AST 594 H ALT 266 H Alkaline Phosphatase 149 H Creatine Kinase CK-MB (CK-2) Troponin I Total Protein 5.9 L Albumin 2.9 L Triglycerides Cholesterol LDL Cholesterol Direct VLDL Cholesterol HDL Cholesterol Amylase Lipase TSH Free T4 Free T3 pg/mL Urine Color Urine Appearance Urine pH Ur Specific Schuyler Urine Protein Urine Glucose (UA) Urine Ketones Urine Blood Urine Nitrite Urine Bilirubin Urine Urobilinogen Ur Leukocyte Esterase Urine WBC (Auto) Urine RBC (Auto) U Hyaline Cast (Auto) Urine Bacteria (Auto) Squamous Epi Cells Auto Urine Mucus (Auto) Urine Ascorbic Acid 08/26/18 08/26/18 08/26/18 07:41 11:07 16:21 WBC RBC Hgb Hct MCV MCH MCHC RDW Plt Count Seg Neutrophils % Lymphocytes % Monocytes % Eosinophils % Basophils % Absolute Neutrophils Absolute Lymphocytes Absolute Monocytes Absolute Eosinophils Absolute Basophils PT INR VBG pH VBG pCO2 VBG HCO3 VBG Base Excess Sodium Potassium Chloride Carbon Dioxide Anion Gap BUN Creatinine Est GFR ( Amer) Est GFR (Non-Af Amer) Glucose POC Glucose 91 107 116 H Hemoglobin A1c % Lactic Acid Calcium Magnesium Total Bilirubin Direct Bilirubin Neonat Total Bilirubin Neonat Direct Bilirubin Neonat Indirect Bili AST ALT Alkaline Phosphatase Creatine Kinase CK-MB (CK-2) Troponin I Total Protein Albumin Triglycerides Cholesterol LDL Cholesterol Direct VLDL Cholesterol HDL Cholesterol Amylase Lipase TSH Free T4 Free T3 pg/mL Urine Color Urine Appearance Urine pH Ur Specific Schuyler Urine Protein Urine Glucose (UA) Urine Ketones Urine Blood Urine Nitrite Urine Bilirubin Urine Urobilinogen Ur Leukocyte Esterase Urine WBC (Auto) Urine RBC (Auto) U Hyaline Cast (Auto) Urine Bacteria (Auto) Squamous Epi Cells Auto Urine Mucus (Auto) Urine Ascorbic Acid Chest X-Ray 08/22/18 15:40 IMPRESSION: NO ACUTE RADIOGRAPHIC FINDING IN THE CHEST. Abdomen/Pelvis CT 08/22/18 19:24 IMPRESSION: Abnormal appearance to the gallbladder, suspicious for cholecystitis. Correlate with history and patient exam. Fatty infiltrative change to the liver. Simple left renal cyst TECHNICAL DOCUMENTATION: Quality ID # [id number]: Final reports with documentation of one or more dose reduction techniques (e.g., Automated exposure control, adjustment of the mA and/or kV according to patient size, use of iterative reconstruction technique) copyright 2011 [employer]- All Rights Reserved Abdomen Ultrasound 08/25/18 00:00 IMPRESSION: Thickening of the gallbladder wall with a small amount of pericholecystic fluid. Slightly concerning for acalculous cholecystitis. Negative sonographic Rojas sign. Small right pleural effusion. Renal Ultrasound 08/25/18 00:00 IMPRESSION: 1.No hydronephrosis. 2. 2.8 cm left renal cyst. Abdomen MRI 08/26/18 00:00 IMPRESSION: Thickened gallbladder wall and trace of pericholecystic fluid suggesting acalculous cholecystitis. No common bile duct stone or biliary dilatation. EKG: Shows sinus rhythm. LVH by voltage. Diffuse nonspecific T abnormality. Possible left ventricular hypertrophy with strain pattern. Impression/RECOMMENDATION: 1. Acute cholecystitis/cholelithiasis: For surgical removal of the same. 2. Hypertension still not well controlled. Would recommend increase the patient's hydralazine 200 mg p.o. every 8 hours. 3. Chronic systolic heart failure. At present compensated no evidence of acute left or right heart failure. 4. Diabetes mellitus: Continue monitoring the patient blood sugar. Continue antidiabetic medication. 5. Cardiomyopathy with moderately reduced LV ejection fraction. 6. Pulmonary hypertension: Suspect this is due to cardiac myopathy and patient's uncontrolled blood pressure. We will treat the patient blood pre ssure. Later would recommend the patient have a sleep study to make sure that she does not have obstructive sleep apnea. 7. CARDIOMYOPATHY: With moderately reduced LV ejection fraction. Suspect this is due to the patient's uncontrolled hypertension and diabetes mellitus. 8. Preoperative cardiac risk assessment. Medications reviewed medications increased and adjusted. Medical decision gladis ing is of high complexity. Discussed with the hospitalist and surgical list seeing this patient. Patient will be at moderate cardiac risk for this procedure under general anesthesia. Would recommend intraoperatively monitoring the patient's heart rhythm, and continue to continue to do this postoperatively. Postoperatively continue the patient's heart rhythm in telemetry unit. THE PATIENT WILL BE MODERATE CARDIAC RISK: Due to the patient's coexisting illnesses. Medical decision making is of high complexity. 40 minutes spent on this patient with more than 50% time spent in direct patient care. POST OPERATIVELY we will monitor the patient closely for development of any congestive heart failure symptoms perioperatively recommend monitoring the patient on telemetry unit. Discussed with the patient, and also discussed with the hospitalist. Medical decision making is of high complexity. 60 minutes spent in this patient with more than 50% of time spent in direct patient care. Surgical history.
[2018-08-26] MEDS: INSULIN GLARGINE,HUM.REC.ANLOG 300 UNIT/3 ML INSULN.PEN SUBCUT SCH (22:02)
--- NOTE | 2018-08-26 22:21 | EKG REPORT ---
SEVERITY:- ABNORMAL ECG - SINUS RHYTHM PROBABLE LVH WITH SECONDARY REPOL ABNRM : Confirmed by: Virgil Webb 26-Aug-2018 22:19:41
[2018-08-27] MEDS: PIPERACILLIN SODIUM/TAZOBACTAM 3.375 GM in NORMAL SALINE 100 ML IV SCH ×4 (00:23→18:20)
[2018-08-27] MEDS: HYDRALAZINE HCL 50 MG TABLET PO SCH ×3 (06:06→21:20)
[2018-08-27] MEDS: HEPARIN SOD (PORCINE) 5,000 UNIT/ML 1 ML SYRINGE SUBCUT SCH ×4 (06:07→21:21)
[2018-08-27 06:39] LABS: HEPATITIS A AB IGM Negative (Negative); HEPATITIS B CORE AB IGM Negative (Negative); HEPATITS B SURFACE ANTIGEN Negative (Negative)
[2018-08-27 07:52] LABS: ABSOLUTE EOSINOPHILS # (AUTO) 0.1 10^3/uL (0.0-0.6); ABSOLUTE LYMPHOCYTES (AUTO) 1.6 10^3/uL (0.5-4.7); ABSOLUTE MONOCYTES (AUTO) 0.6 10^3/uL (0.1-1.4); ABSOLUTE NEUT (AUTO) 4.5 10^3/uL (1.7-8.2); BASOPHILS % (AUTO) 0.6 % (0-2); HEMATOCRIT 34.3 % (36.0-47.0); HEMOGLOBIN 11.3 g/dL (12.0-15.5); MEAN CORPUSCULAR HEMOGLOBIN 26.4 pg (27.0-33.4); MEAN CORPUSCULAR VOLUME 80 fl (80-97); MONOCYTES % (AUTO) 8.5 % (3-13); PLATELET COUNT 291 10^3/uL (150-450); RED BLOOD COUNT 4.29 10^6/uL (3.72-5.28); RED CELL DISTRIBUTION WIDTH 15.3 % (11.5-14.0); SEGMENTED NEUTROPHILS % (AUTO) 66.9 % (42-78); TOTAL CELLS COUNTED % (AUTO) 100 %; WHITE BLOOD COUNT 6.7 10^3/uL (4.0-10.5)
[2018-08-27 07:58] LABS: ALANINE AMINOTRANSFERASE 157 U/L (9-52); ALKALINE PHOSPHATASE 129 U/L (38-126); ANION GAP 9 (5-19); ASPARTATE AMINO TRANSFERASE 142 U/L (14-36); BILIRUBIN,DIRECT 0.9 mg/dL (0.0-0.4); BILIRUBIN,TOTAL 1.9 mg/dL (0.2-1.3); BLOOD UREA NITROGEN 6 mg/dL (7-20); CALCIUM 9.2 mg/dL (8.4-10.2); CARBON DIOXIDE 24 mmol/L (22-30); CHLORIDE 106 mmol/L (98-107); GLUCOSE 137 mg/dL (75-110); LIPASE 61.2 U/L (23-300); POTASSIUM 3.7 mmol/L (3.6-5.0); SODIUM 138.7 mmol/L (137-145); TOTAL PROTEIN 5.8 g/dL (6.3-8.2)
[2018-08-27 07:58] LABS: HEPATITIS C VIRUS ANTIBODY <0.1 s/co ratio (0.0-0.9)
[2018-08-27] MEDS: HYDROCHLOROTHIAZIDE 12.5 MG TABLET PO SCH (08:32)
[2018-08-27] MEDS: METOCLOPRAMIDE HCL INJ/PF 10 MG/2 ML SDV IV SCH ×4 (08:33→21:21)
[2018-08-27] MEDS: SUCRALFATE SUSP 1 GM/10 ML UDCUP PO SCH ×4 (08:33→21:20)
[2018-08-27] MEDS ORDERED: BUPIVACAINE HCL 0.5%-EPI 1:200000 INJ/PF 30 ML VIAL ONE (08:43)
[2018-08-27] MEDS ORDERED: MIDAZOLAM 2 MG/2 ML INJ ONE (08:46)
[2018-08-27] MEDS ORDERED: ONDANSETRON HCL INJ/PF 4 MG/2 ML SDV ONE (08:46)
[2018-08-27] MEDS ORDERED: FENTANYL CITRATE INJ/PF 100 MCG/2 ML AMPUL ONE (08:46)
[2018-08-27] MEDS ORDERED: DEXAMETHASONE SOD PHOSPHATE INJ 4 MG/1 ML VIAL ONE (08:46)
[2018-08-27] MEDS ORDERED: LIDOCAINE 2% INJ-PF (100 MG/5 ML) SYRINGE ONE (08:46)
[2018-08-27] MEDS ORDERED: SUGAMMADEX SODIUM 200 MG/2 ML SDV IV ONE (08:47)
[2018-08-27] MEDS ORDERED: ACETAMINOPHEN 0 MG/0 ML RTUPB IV ONE (08:48)
[2018-08-27] MEDS ORDERED: PROPOFOL INJ 200 MG/20 ML VIAL IV ONE (08:48)
[2018-08-27] MEDS: AMLODIPINE BESYLATE 10 MG TABLET PO SCH (09:33)
[2018-08-27] MEDS: DOCUSATE SODIUM 100 MG CAPSULE PO SCH ×2 (09:33→18:22)
[2018-08-27] MEDS: METOPROLOL SUCCINATE 25 MG TAB.SR.24H PO SCH ×2 (09:34→21:20)
[2018-08-27] MEDS: LISINOPRIL 10 MG TABLET PO SCH (09:34)
[2018-08-27] MEDS ORDERED: MILRINONE LACTATE/D5W 20 MG/100 ML RTUINJ IV PRN (10:05)
[2018-08-27] MEDS ORDERED: NITROGLYCERIN 50 MG/D5W 250 ML IV PRN (10:07)
[2018-08-27] MEDS ORDERED: DIPHENHYDRAMINE HCL 50 MG/ML VIAL IV PRN (11:27)
[2018-08-27] MEDS ORDERED: PROMETHAZINE HCL INJ 25 MG/1 ML VIAL IV PRN ×2 (11:27)
[2018-08-27] MEDS ORDERED: ONDANSETRON HCL INJ/PF 4 MG/2 ML SDV IV PRN ×2 (11:27→12:30)
[2018-08-27] MEDS ORDERED: FENTANYL CITRATE INJ/PF 100 MCG/2 ML AMPUL IV PRN ×3 (11:27)
[2018-08-27] MEDS ORDERED: MORPHINE SULFATE 10 MG/ML INJ IV PRN (11:27)
[2018-08-27] MEDS ORDERED: MEPERIDINE HCL/PF INJ 25 MG/1 ML DISP.SYRIN IV PRN (11:27)
[2018-08-27] MEDS ORDERED: SUCCINYLCHOLINE CHLORIDE INJ 200 MG/10 ML VIAL ONE (12:18)
[2018-08-27] MEDS ORDERED: ROCURONIUM BROMIDE INJ 50 MG/5 ML VIAL IV ONE (12:18)
[2018-08-27] MEDS: HYDRALAZINE HCL INJ/PF 20 MG/1 ML SDV ONE ×2 (12:20→12:43)
[2018-08-27] MEDS ORDERED: ACETAMINOPHEN 1,000 MG/100 ML RTUPB IV ONE (12:22)
[2018-08-27] MEDS: FENTANYL CITRATE INJ/PF 100 MCG/2 ML AMPUL ONE ×2 (12:24→12:34)
--- NOTE | 2018-08-27 12:38 | OPERATIVE REPORT E ---
Operative Report NAME: PHILLIP DORANTES : 1970 AGE: 48Y DATE OF SURGERY: 08/27/2018 ROOM: 332 PREOPERATIVE DIAGNOSIS: Acute acalculous cholecystitis. POSTOPERATIVE DIAGNOSIS: Acute acalculous cholecystitis. OPERATION: Laparoscopic cholecystectomy. SURGEON: DANIELE ORTIZ M.D. ANESTHESIA: General. INDICATIONS: This is a 48-year-old female with right upper quadrant pains and thickened gallbladder wall on ultrasound. She had an MRCP yesterday which showed no cystic duct or common bile duct obstruction or stones. She has a fatty liver. She has a history of congestive heart failure. DESCRIPTION OF PROCEDURE: After adequate general anesthesia the patient was placed in a supine position and the abdomen prepped and draped in the usual sterile fashion. A supraumbilical elliptical incision was made and the fascia identified and grasped with 2 Michael clamps and divided between the 2 Michael clamps. Sutures using 0 Vicryl were placed on each side of the clamp and the clamps released. Blunt digital dissection of the fascia to the abdominal cavity was then performed. A Berta trocar was then inserted through the fascia into the abdominal cavity and CO2 insufflated to a pressure of 15 mmHg. Three other trocars were placed, a 12 mm in the subxiphoid and two 5 mm in the right upper quadrant. The gallbladder was then identified, noted to be just slightly thickened and edematous. There were some adhesions around it that were lysed using harmonic laura. The cystic duct was then dissected as well as the cystic artery. The cystic duct was noted to be quite small, about almost 2 mm in diameter. Because of this the operative cholangiogram was not performed. The cystic duct was then clipped with Hemoclips and divided. The cystic artery was clipped proximally and divided with the use of harmonic laura towards the gallbladder side. The gallbladder was then dissected off the liver bed. The gallbladder was completely removed from the liver bed and placed in an Endobag and pulled out of the umbilical port. The gallbladder was noted to be somewhat thickened and enlarged but no palpable stones noted. Hemostasis was further obtained with the use of cautery. It appeared the gallbladder was edematous and part of her pain is probably due to passive congestion of the liver, though with the thickened gallbladder wall and some edema around the gallbladder the patient may have quite an acute cholecystitis. A piece of Surgicel was then placed on the liver bed just to make sure Of hemostasis. The abdominal cavity was inspected and no other abnormality noted. All the trocars were removed and no bleeding from the trocar sites. CO2 was allowed to come out through the trocar sites. The fascial defect was then closed with a [id number] suture using 0 Vicryl and the 2 stay sutures tied over. Local anesthesia was infiltrated in the fascia and all the incision sites. All incisions were then closed with running subcuticular closure using 4-0 Monocryl. Steri-Strips were then placed over the operative site. Needle, instrument, and sponge counts were all correct. Estimated blood loss was no more than 10 mL. The patient tolerated the procedure well and was brought to the recovery room, extubated, in satisfactory condition. DICTATING PHYSICIAN: DANIELE ORTIZ M.D. [id number] PHY#: [id number] ID: [id number] JOB#: [id number] ACCT: [id number] cc:DANIELE ORTIZ M.D. >
[2018-08-27] MEDS ORDERED: HYDROMORPHONE HCL INJ/PF 2 MG/ML AMPULE ONE (12:40)
[2018-08-27] MEDS: KETOROLAC TROMETHAMINE INJ/PF 30 MG/1 ML SDV IV SCH ×2 (14:04→21:21)
[2018-08-27 16:12] LABS: CREATINE KINASE MB 0.54 ng/mL (<4.55)
[2018-08-27 16:22] LABS: TROPONIN I 0.042 ng/mL
--- NOTE | 2018-08-27 18:39 | Progress Note ---
Provider Note Provider Note: CARDIOLOGY PROGRESS NOTE by Dr. Celine Dorsey on 08/27/2018. SUBJECTIVE: The patient had surgical removal of her gallbladder with a diagnosis of acalculous cholecystitis. The patient earlier had some abdominal pain and vague chest pain and body pain. Her EKG shows sinus rhythm LVH with strain pattern. Troponin is negative/indeterminate. At present the patient is sitting up in bed and denies any chest pain or discomfort. There is no shortness of breath. There is no PND orthopnea. There is no arrhythmias seen on the monitor. There is no pedal edema. The patient denies any nausea vomiting. Her postop pain is well controlled. Physical EXAMINATION: The patient is moderately obese. She is well-groomed. She is in no acute distress Selected Entries 08/27/18 15:39 Temperature 98.1 F Temperature Oral Source Pulse Rate 86 Respiratory 17 Rate Blood Pressure 142/61 H Blood Pressure 88 Mean BP Location Left Arm BP Position Supine O2 Sat by Pulse 100 Oximetry Oxygen Flow 1.50 Rate Oxygen Delivery Nasal Cannula Method HEAD: Head is atraumatic normocephalic. EYES: Pupils are equal round regular react to light accommodation. Extraocular movements are normal. There is no clinical pallor. There is no scleral icterus. EARS: Tympanic membranes are in tact. External auditory canals are clear. NOSE: There is no deviated nasal septum. There is no inflammation of the nasal mucous membrane. MOUTH: His membranes of mouth are moist tongue is moist there is no ulcers there is no bleeding from the gums. THROAT: There is no exudates in the throat. There is no redness of the oropharynx. SKIN: There is no petechia or ecchymosis. There is no skin lesions or skin rashes. NECK: Is supple. There is no JVD. Carotids are equal there is no bruit. There is no lymphadenopathy. There is no goiter. HEART: S1-S2 is heard there is no S3 gallop there is no S4 gallop. There is systolic murmur left sternal border and the apex there is no rub. ABDOMEN: Is soft obese. There is mild tenderness in the right palpation right upper quadrant. There is no rebound or guarding.. Or rigidity. There is no hepatosplenic megaly. Bowel sounds are well heard. EXTREMITIES: Femorals are deep. The femorals are diminished. There is no pedal edema. There is no cyanosis or clubbing. Capillary refill is normal. There is no DVT or cellulitis. There is no calf tenderness.. [employer] OPERATOR: The patient is conscious awake alert oriented x3 with no focal deficits. Psychiatric: The patient judgment and insight are intact her affect is normal. 08/27/18 08/27/18 08/27/18 07:21 07:21 12:47 WBC 6.7 RBC 4.29 Hgb 11.3 L Hct 34.3 L MCV 80 MCH 26.4 L MCHC 33.0 RDW 15.3 H Plt Count 291 Sodium 138.7 Potassium 3.7 Chloride 106 Carbon Dioxide 24 Anion Gap 9 BUN 6 L Creatinine 0.64 Est GFR (Non-Af Amer) > 60 Glucose 137 H POC Glucose 170 H Calcium 9.2 Total Bilirubin 1.9 H Direct Bilirubin 0.9 H Neonat Total Bilirubin Not Reportable Neonat Direct Bilirubin Not Reportable Neonat Indirect Bili Not Reportable AST 142 H ALT 157 H Alkaline Phosphatase 129 H Creatine Kinase CK-MB (CK-2) Troponin I Total Protein 5.8 L Albumin 3.0 L 08/27/18 08/27/18 08/27/18 15:00 15:00 15:40 WBC RBC Hgb Hct MCV MCH MCHC RDW Plt Count Sodium Potassium Chloride Carbon Dioxide Anion Gap BUN Creatinine Est GFR (Non-Af Amer) Glucose POC Glucose 242 H Calcium Total Bilirubin Direct Bilirubin Neonat Total Bilirubin Neonat Direct Bilirubin Neonat Indirect Bili AST ALT Alkaline Phosphatase Creatine Kinase 51 CK-MB (CK-2) 0.54 Troponin I 0.042 Total Protein Albumin EKG: Sinus rhythm. LVH with strain pattern. IMPRESSION / RECOMMENDATION: 1. Acute cholecystitis/cholelithiasis: Status post cholecystectomy. Patient appears to be stable. 2. Hypertension still not well controlled. Would recommend increase the patient's hydralazine 200 mg p.o. every 8 hours. 3. Chronic systolic heart failure. At present compensated no evidence of acute left or right heart failure. 4. Diabetes mellitus: Continue monitoring the patient blood sugar. Continue antidiabetic medication. 5. Cardiomyopathy with moderately reduced LV ejection fraction. 6. Pulmonary hypertension: Suspect this is due to cardiac myopathy and patient's uncontrolled blood pressure. We will treat the patient blood pressure. Later would recommend the patient have a sleep study to make sure that she does not have obstructive sleep apnea. 7. CARDIOMYOPATHY: With moderately reduced LV ejection fraction. Suspect this is due to the patient's uncontrolled hypertension and diabetes mellitus. 8. Abnormal Liver Function Tests: This partly is secondary to the patient's right heart failure causing hepatic congestion, and acute cholecystitis. Medications reviewed medications increased and adjusted. Medical decision making is of moderate complexity. Discussed with the hospitalist and surgical list seeing this patient. The patient does not have insurance, and hence medication noncompliance is due to financial reasons. I have discussed with her that there are pharmacies which several medications at a cheaper rate. I have asked her to try to get her medication from [facility]. Importance of compliance with medications is been discussed with the patient. 40 minutes spent on this patient more than 50% of time spent in direct patient care.
[2018-08-27] MEDS: INSULIN GLARGINE,HUM.REC.ANLOG 300 UNIT/3 ML INSULN.PEN SUBCUT SCH (21:22)
[2018-08-27] MEDS: INSULIN REG, HUMAN 100 UNIT/ML 3 ML VIAL (PYX) SUBCUT PRN (21:22)
[2018-08-27] MEDS: NORMAL SALINE 1000 ML 1,000 ML IV PRN (21:32)
[2018-08-27 22:02] LABS: TROPONIN I 0.037 ng/mL
--- NOTE | 2018-08-27 22:08 | EKG REPORT ---
SEVERITY:- ABNORMAL ECG - SINUS RHYTHM ABNORMAL T, CONSIDER ISCHEMIA, ANT-LAT LEADS : Confirmed by: Virgil Webb 27-Aug-2018 22:07:10
[2018-08-28] MEDS: PIPERACILLIN SODIUM/TAZOBACTAM 3.375 GM in NORMAL SALINE 100 ML IV SCH ×3 (00:07→12:02)
[2018-08-28] MEDS: KETOROLAC TROMETHAMINE INJ/PF 30 MG/1 ML SDV IV SCH ×6 (03:21→22:00)
[2018-08-28 03:41] LABS: ABSOLUTE LYMPHOCYTES (AUTO) 0.9 10^3/uL (0.5-4.7); ABSOLUTE MONOCYTES (AUTO) 0.7 10^3/uL (0.1-1.4); ABSOLUTE NEUT (AUTO) 6.3 10^3/uL (1.7-8.2); BASOPHILS % (AUTO) 0.2 % (0-2); HEMATOCRIT 33.7 % (36.0-47.0); HEMOGLOBIN 11.1 g/dL (12.0-15.5); LYMPHOCYTES % (AUTO) 11.6 % (13-45); MEAN CORPUSCULAR HEMOGLOBIN 26.4 pg (27.0-33.4); MEAN CORPUSCULAR HGB CONC 32.9 g/dL (32.0-36.0); MEAN CORPUSCULAR VOLUME 80 fl (80-97); MONOCYTES % (AUTO) 8.5 % (3-13); PLATELET COUNT 285 10^3/uL (150-450); RED BLOOD COUNT 4.19 10^6/uL (3.72-5.28); RED CELL DISTRIBUTION WIDTH 15.5 % (11.5-14.0); SEGMENTED NEUTROPHILS % (AUTO) 79.7 % (42-78); TOTAL CELLS COUNTED % (AUTO) 100 %; WHITE BLOOD COUNT 7.9 10^3/uL (4.0-10.5)
[2018-08-28 03:57] LABS: ALANINE AMINOTRANSFERASE 114 U/L (9-52); ALBUMIN 2.9 g/dL (3.5-5.0); ALKALINE PHOSPHATASE 112 U/L (38-126); ANION GAP 11 (5-19); ASPARTATE AMINO TRANSFERASE 60 U/L (14-36); BILIRUBIN,DIRECT 0.6 mg/dL (0.0-0.4); BLOOD UREA NITROGEN 11 mg/dL (7-20); CALCIUM 8.9 mg/dL (8.4-10.2); CARBON DIOXIDE 21 mmol/L (22-30); CHLORIDE 105 mmol/L (98-107); GLUCOSE 374 mg/dL (75-110); POTASSIUM 3.6 mmol/L (3.6-5.0); SODIUM 137.1 mmol/L (137-145); TOTAL PROTEIN 5.6 g/dL (6.3-8.2)
[2018-08-28 04:08] LABS: CREATINE KINASE MB 0.73 ng/mL (<4.55); TROPONIN I 0.036 ng/mL
[2018-08-28] MEDS: HYDRALAZINE HCL 50 MG TABLET PO SCH ×3 (05:25→22:00)
[2018-08-28] MEDS: HEPARIN SOD (PORCINE) 5,000 UNIT/ML 1 ML SYRINGE SUBCUT SCH ×3 (05:27→21:30)
[2018-08-28] MEDS: SUCRALFATE SUSP 1 GM/10 ML UDCUP PO SCH ×4 (08:17→22:00)
[2018-08-28] MEDS: HYDROCHLOROTHIAZIDE 12.5 MG TABLET PO SCH (08:17)
[2018-08-28] MEDS: METOCLOPRAMIDE HCL INJ/PF 10 MG/2 ML SDV IV SCH ×4 (08:17→22:00)
[2018-08-28] MEDS: INSULIN REG, HUMAN 100 UNIT/ML 3 ML VIAL (PYX) SUBCUT PRN ×3 (08:17→17:16)
[2018-08-28] MEDS: AMLODIPINE BESYLATE 10 MG TABLET PO SCH (09:24)
[2018-08-28] MEDS: DOCUSATE SODIUM 100 MG CAPSULE PO SCH ×2 (09:24→17:16)
[2018-08-28] MEDS: LISINOPRIL 10 MG TABLET PO SCH ×2 (09:24→23:52)
[2018-08-28] MEDS: METOPROLOL SUCCINATE 25 MG TAB.SR.24H PO SCH ×2 (09:24→22:00)
--- NOTE | 2018-08-28 13:17 | Progress Note ---
Provider Note Provider Note: CARDIOLOGY PROGRESS NOTE by Dr. Celine Gonzalez on 08/28/2018. SUBJECTIVE: The patient is lying down flat. She denies any chest pain or discomfort. There is no abdominal pain. There is no PND orthopnea or leg edema. There is no shortness of breath. There is no arrhythmias seen on the monitor. She is tolerating her diet which is liquid diet. There is no TIA CVA symptoms. PHYSICAL EXAMINATION: The patient is moderately obese. In no acute distress she is well-groomed Selected Entries 08/28/18 07:55 Temperature 97.5 F Temperature Oral Source Pulse Rate 83 Respiratory 17 Rate Blood Pressure 130/75 H Blood Pressure 93 Mean BP Location Right Arm BP Position Supine O2 Sat by Pulse 97 Oximetry Oxygen Delivery Room Air Method HEAD: Head is atraumatic normocephalic. EYES: Pupils are equal round regular react to light accommodation. Extraocular movements are normal. There is no clinical pallor. There is no scleral icterus. EARS: Tympanic membranes are intact. External auditory canals are clear. NOSE: There is no deviated nasal septum. There is no inflammation of the nasal mucous membrane. MOUTH: His membranes of mouth are moist tongue is moist there is no ulcers there is no bleeding from the gums. THROAT: There is no exudates in the throat. There is no redness of the oropharynx. SKIN: There is no petechia or ecchymosis. There is no skin lesions or skin rashes. NECK: Is supple. There is no JVD. Carotids are equal there is no bruit. There is no lymphadenopathy. There is no goiter. HEART: S1-S2 is heard there is no S3 gallop there is no S4 gallop. There is systolic murmur left sternal border and the apex there is no rub. ABDOMEN: Is s oft obese. There is mild tenderness in the right palpation right upper quadrant. There is no rebound or guarding.. Or rigidity. There is no hepatosplenic megaly. Bowel sounds are well heard. EXTREMITIES: Femorals are deep. The femorals are diminished. There is no pedal edema. There is no cyanosis or clubbing. Capillary refill is normal. There is no DVT or cellulitis. There is no calf tenderness.. VETERINARY MEDICINE SCIENTIST: The patient is conscious awake alert oriented x3 with no focal deficits. Psychiatric: The patient judgment and insight are intact her affect is normal. 08/27/18 08/27/18 08/28/18 07:21 21:19 03:34 WBC 7.9 RBC 4.19 Hgb 11.1 L Hct 33.7 L MCV 80 MCH 26.4 L MCHC 32.9 RDW 15.5 H Plt Count 285 Sodium Potassium Chloride Carbon Dioxide Anion Gap BUN Creatinine Est GFR (Non-Af Amer) Glucose Calcium Total Bilirubin 1.9 H Direct Bilirubin 0.9 H Neonat Total Bilirubin Not Reportable Neonat Direct Bilirubin Not Reportable Neonat Indirect Bili Not Reportable AST 142 H ALT 157 H Alkaline Phosphatase 129 H Creatine Kinase CK-MB (CK-2) 1.00 Troponin I 0.037 Total Protein Albumin 08/28/18 08/28/18 08/28/18 03:34 03:34 03:34 WBC RBC Hgb Hct MCV MCH MCHC RDW Plt Count Sodium 137.1 Potassium 3.6 Chloride 105 Carbon Dioxide 21 L Anion Gap 11 BUN 11 Creatinine 0.81 Est GFR (Non-Af Amer) > 60 Glucose 374 H Calcium 8.9 Total Bilirubin 1.0 Direct Bilirubin 0.6 H Neonat Total Bilirubin Not Reportable Neonat Direct Bilirubin Not Reportable Neonat Indirect Bili Not Reportable AST 60 H ALT 114 H Alkaline Phosphatase 112 Creatine Kinase 73 CK-MB (CK-2) 0.73 Troponin I 0.036 Total Protein 5.6 L Albumin 2.9 L IMPRESSION / RECOMMENDATION: 1. Acute cholecystitis/cholelithiasis: Status post cholecystectomy. Patient appears to be stable. 2. Hypertension still not well controlled. Would recommend increase the patient's hydralazine 200 mg p.o. every 8 hours. 3. Chronic systolic heart failure. At present compensated no evidence of acute left or right heart failure. 4. Diabetes mellitus: Continue monitoring the patient blood sugar. Continue antidiabetic medication. 5. Cardiomyopathy with moderately reduced LV ejection fraction. 6. Pulmonary hypertension: Suspect this is due to cardiac myopathy and patient's uncontrolled blood pressure. We will treat the patient blood pressure. Later would recommend the patient have a sleep study to make sure that she does not have obstructive sleep apnea. 7. CARDIOMYOPATHY: With moderately reduced LV ejection fraction. Suspect this is due to the patient's uncontrolled hypertension and diabetes mellitus. Continue beta-tri and hydralazine. We will increase the patient's lisinopril to 20 mg p.o. twice daily. 8. Abnormal Liver Function Tests: This partly is secondary to the patient's right heart failure causing hepatic congestion, and acute cholecystitis. This is coming down Medications reviewed medications increased and adjusted. Medical decision making is of moderate complexity. Discussed with the hospitalist and surgical list seeing this patient. The patient does not have insurance, and hence medication noncompliance is due to financial reasons. I have discussed with her that there are pharmacies which several medications at a cheaper rate. I have asked her to try to get her medication from [facility]. Importance of compliance with medications is been discussed with the patient. 40 minutes spent on this patient more than 50% of time spent in direct patient care.
--- NOTE | 2018-08-28 13:43 | PDOC PROGRESS REPORT ---
Subjective Progress Note for:: 08/28/18 Subjective:: Less pains. Post lap tray. Feeling much better post op Reason For Visit: CHOLECYSTITIS, HYPERTENSIVE CRISIS Physical Exam Vital Signs: Temp Pulse Resp BP Pulse Ox 97.9 F 80 16 141/79 H 98 08/28/18 12:00 08/28/18 12:00 08/28/18 12:00 08/28/18 12:00 08/28/18 12:00 Intake & Output 08/27/18 08/28/18 08/29/18 06:59 06:59 06:59 Intake Total 400 1839 584 Output Total 10 Balance 400 1829 584 Weight 93.1 kg 96 kg Exam: Abdomen is soft with minimal tenderness Results Laboratory Results: 08/28/18 03:34 08/28/18 03:34 08/28/18 08/28/18 03:34 03:34 WBC 7.9 RBC 4.19 Hgb 11.1 L Hct 33.7 L MCV 80 MCH 26.4 L MCHC 32.9 RDW 15.5 H Plt Count 285 Seg Neutrophils % 79.7 H Lymphocytes % 11.6 L Monocytes % 8.5 Eosinophils % 0.0 Basophils % 0.2 Absolute Neutrophils 6.3 Absolute Lymphocytes 0.9 Absolute Monocytes 0.7 Absolute Eosinophils 0.0 Absolute Basophils 0.0 Sodium 137.1 Potassium 3.6 Chloride 105 Carbon Dioxide 21 L Anion Gap 11 BUN 11 Creatinine 0.81 Est GFR ( Amer) > 60 Est GFR (Non-Af Amer) > 60 Glucose 374 H Calcium 8.9 Total Bilirubin 1.0 AST 60 H ALT 114 H Alkaline Phosphatase 112 Total Protein 5.6 L Albumin 2.9 L 08/22/18 16:00 Blood Blood Culture - Final NO GROWTH IN 5 DAYS 08/22/18 08/22/18 08/23/18 16:00 20:28 02:24 Creatine Kinase CK-MB (CK-2) 0.42 Troponin I 0.044 0.037 0.035 08/23/18 08/23/18 08/23/18 02:24 09:19 09:19 Creatine Kinase 76 80 CK-MB (CK-2) 0.32 Troponin I 0.034 08/23/18 08/23/18 08/27/18 15:47 15:47 15:00 Creatine Kinase 62 51 CK-MB (CK-2) 0.37 Troponin I 0.032 08/27/18 08/27/18 08/27/18 15:00 21:19 21:19 Creatine Kinase 84 CK-MB (CK-2) 0.54 1.00 Troponin I 0.042 0.037 08/28/18 08/28/18 03:34 03:34 Creatine Kinase 73 CK-MB (CK-2) 0.73 Troponin I 0.036 Impressions: Chest X-Ray 08/22/18 15:40 IMPRESSION: NO ACUTE RADIOGRAPHIC FINDING IN THE CHEST. Abdomen/Pelvis CT 08/22/18 19:24 IMPRESSION: Abnormal appearance to the gallbladder, suspicious for cholecystitis. Correlate with history and patient exam. Fatty infiltrative change to the liver. Simple left renal cyst TECHNICAL DOCUMENTATION: Quality ID # 436: Final reports with documentation of one or more dose reduction techniques (e.g., Automated exposure control, adjustment of the mA and/or kV according to patient size, use of iterative reconstruction technique) copyright 2011 [employer]- All Rights Reserved Abdomen Ultrasound 08/25/18 00:00 IMPRESSION: Thickening of the gallbladder wall with a small amount of pericholecystic fluid. Slightly concerning for acalculous cholecystitis. Negative sonographic Rojas sign. Small right pleural effusion. Renal Ultrasound 08/25/18 00:00 IMPRESSION: 1.No hydronephrosis. 2. 2.8 cm left renal cyst. Abdomen MRI 08/26/18 00:00 IMPRESSION: Thickened gallbladder wall and trace of pericholecystic fluid s uggesting acalculous cholecystitis. No common bile duct stone or biliary dilatation. Assessment & Plan - Diagnosis (1) Acute cholecystitis Is this a current diagnosis for this admission?: Yes (2) Coronary artery disease Qualifiers: Coronary Disease-Associated Artery/Lesion type: [place] artery [place] vs. transplanted heart: [place] heart Associated angina: angina presence unspecified Qualified Code(s): I25.10 - Atherosclerotic heart disease of [place] coronary artery without angina pectoris Is this a current diagnosis for this admission?: Yes (3) Acute on chronic systolic (congestive) heart failure Is this a current diagnosis for this admission?: No (4) Cardiomyopathy Qualifiers: Cardiomyopathy type: unspecified Qualified Code(s): I42.9 - Cardiomyopathy, unspecified Is this a current diagnosis for this admission?: No (5) Congestive heart failure Qualifiers: Heart failure type: combined systolic and diastolic Heart failure chronicity: chronic Qualified Code(s): I50.42 - Chronic combined systolic (congestive) and diastolic (congestive) heart failure Is this a current diagnosis for this admission?: Yes - Time Time Spent with patient: 15-24 minutes - Plan Summary Plan Summary: Doing well post lap tray and can be discharge anytime from surgical viewpoint
--- NOTE | 2018-08-28 16:40 | EKG REPORT ---
SEVERITY:- ABNORMAL ECG - SINUS RHYTHM, REC REPEAT EKG SEC TO ARTIFACTS NONSPECIFIC T ABNORMALITIES, ANT-LAT LEADS PROLONGED QT INTERVAL : Confirmed by: Virgil Webb 28-Aug-2018 16:40:00
--- NOTE | 2018-08-28 17:19 | PDOC PROGRESS REPORT ---
Subjective Progress Note for:: 08/28/18 Subjective:: No adverse events overnight. No new complaints. Vital signs been stable. Blood pressure has been relatively well controlled. Her diet has not yet been started by surgery. She denies any substantial abdominal pain. Reason For Visit: CHOLECYSTITIS, HYPERTENSIVE CRISIS Physical Exam Vital Signs: Temp Pulse Resp BP Pulse Ox 97.7 F 82 17 144/87 H 97 08/28/18 15:28 08/28/18 15:28 08/28/18 15:28 08/28/18 15:28 08/28/18 15:28 Intake & Output 08/27/18 08/28/18 08/29/18 06:59 06:59 06:59 Intake Total 400 1839 1293 Output Total 10 Balance 400 1829 1293 Weight 93.1 kg 96 kg General appearance: PRESENT: no acute distress, cooperative, disheveled, morbidly obese Respiratory exam: PRESENT: clear to auscultation ac, symmetrical, unlabored. ABSENT: accessory muscle use, crackles, prolonged expiratory phas, rhonchi, tachypnea, wheezes Cardiovascular exam: PRESENT: RRR, +S1, +S2 Pulses: PRESENT: normal carotid pulses Vascular exam: PRESENT: normal capillary refill GI/Abdominal exam: PRESENT: normal bowel sounds, soft, tenderness - Right upper quadrant. ABSENT: distended, guarding, rebound Extremities exam: ABSENT: clubbing, pedal edema Musculoskeletal exam: PRESENT: normal inspection. ABSENT: deformity Neurological exam: PRESENT: awake, oriented to person, oriented to place, oriented to situation Psychiatric exam: PRESENT: flat affect, normal mood Skin exam: PRESENT: dry, warm Results Laboratory Results: 08/28/18 03:34 08/28/18 03:34 08/28/18 08/28/18 03:34 03:34 WBC 7.9 RBC 4.19 Hgb 11.1 L Hct 33.7 L MCV 80 MCH 26.4 L MCHC 32.9 RDW 15.5 H Plt Count 285 Seg Neutrophils % 79.7 H Lymphocytes % 11.6 L Monocytes % 8.5 Eosinophils % 0.0 Basophils % 0.2 Absolute Neutrophils 6.3 Absolute Lymphocytes 0.9 Absolute Monocytes 0.7 Absolute Eosinophils 0.0 Absolute Basophils 0.0 Sodium 137.1 Potassium 3.6 Chloride 105 Carbon Dioxide 21 L Anion Gap 11 BUN 11 Creatinine 0.81 Est GFR ( Amer) > 60 Est GFR (Non-Af Amer) > 60 Glucose 374 H Calcium 8.9 Total Bilirubin 1.0 AST 60 H ALT 114 H Alkaline Phosphatase 112 Total Protein 5.6 L Albumin 2.9 L 08/22/18 16:00 Blood Blood Culture - Final NO GROWTH IN 5 DAYS 08/22/18 08/22/18 08/23/18 16:00 20:28 02:24 Creatine Kinase CK-MB (CK-2) 0.42 Troponin I 0.044 0.037 0.035 08/23/18 08/23/18 08/23/18 02:24 09:19 09:19 Creatine Kinase 76 80 CK-MB (CK-2) 0.32 Troponin I 0.034 08/23/18 08/23/18 08/27/18 15:47 15:47 15:00 Creatine Kinase 62 51 CK-MB (CK-2) 0.37 Troponin I 0.032 08/27/18 08/27/18 08/27/18 15:00 21:19 21:19 Creatine Kinase 84 CK-MB (CK-2) 0.54 1.00 Troponin I 0.042 0.037 08/28/18 08/28/18 03:34 03:34 Creatine Kinase 73 CK-MB (CK-2) 0.73 Troponin I 0.036 Impressions: Chest X-Ray 08/22/18 15:40 IMPRESSION: NO ACUTE RADIOGRAPHIC FINDING IN THE CHEST. Abdomen/Pelvis CT 08/22/18 19:24 IMPRESSION: Abnormal appearance to the gallbladder, suspicious for cholecystitis. Correlate with history and patient exam. Fatty infiltrative change to the liver. Simple left renal cyst TECHNICAL DOCUMENTATION: Quality ID # 436: Final reports with documentation of one or more dose reduction techniques (e.g., Automated exposure control, adjustment of the mA and/or kV according to patient size, use of iterative reconstruction technique) copyright 2011 [employer]- All Rights Reserved Abdomen Ultrasound 08/25/18 00:00 IMPRESSION: Thickening of the gallbladder wall with a small amount of pericholecystic fluid. Slightly concerning for acalculous cholecystitis. Negative sonographic Rojas sign. Small right pleural effusion. Renal Ultrasound 08/25/18 00:00 IMPRESSION: 1.No hydronephrosis. 2. 2.8 cm left renal cyst. Abdomen MRI 08/26/18 00:00 IMPRESSION: Thickened gallbladder wall and trace of pericholecystic fluid suggesting acalculous cholecystitis. No common bile duct stone or biliary dilatation. Assessment & Plan - Diagnosis (1) Acute cholecystitis Is this a current diagnosis for this admission?: Yes Plan: Status post cholecystectomy, this problem is now resolved. Antibiotics have been discontinued. She will resume diet when surgery deems appropriate., If her diet is advanced and she tolerates it overnight, we will discharge her home in the morning. (2) Diabetes mellitus type 2 in obese Is this a current diagnosis for this admission?: Yes Plan: Blood sugars have been relatively well controlled for us. Suspect a high degree of noncompliance at home. She says she has not had any of her medication in 2-3 weeks. (3) Hypertensive urgency Is this a current diagnosis for this admission?: Yes Plan: Improved with medication adjustments. Blood pressures are more reasonable now. - Time Time Spent with patient: 25-34 minutes
[2018-08-28] MEDS: INSULIN GLARGINE,HUM.REC.ANLOG 300 UNIT/3 ML INSULN.PEN SUBCUT SCH (21:31)
[2018-08-29] MEDS: KETOROLAC TROMETHAMINE INJ/PF 30 MG/1 ML SDV IV SCH ×3 (04:00→14:24)
[2018-08-29] MEDS: HEPARIN SOD (PORCINE) 5,000 UNIT/ML 1 ML SYRINGE SUBCUT SCH ×2 (05:25→14:24)
[2018-08-29] MEDS: HYDRALAZINE HCL 50 MG TABLET PO SCH ×2 (05:26→14:24)
[2018-08-29] MEDS: METOCLOPRAMIDE HCL INJ/PF 10 MG/2 ML SDV IV SCH ×2 (08:02→12:24)
[2018-08-29] MEDS: HYDROCHLOROTHIAZIDE 12.5 MG TABLET PO SCH (08:03)
[2018-08-29] MEDS: SUCRALFATE SUSP 1 GM/10 ML UDCUP PO SCH ×2 (08:03→12:25)
[2018-08-29] MEDS: LISINOPRIL 10 MG TABLET PO SCH (10:11)
[2018-08-29] MEDS: METOPROLOL SUCCINATE 25 MG TAB.SR.24H PO SCH (10:11)
[2018-08-29] MEDS: DOCUSATE SODIUM 100 MG CAPSULE PO SCH (10:12)
[2018-08-29] MEDS: AMLODIPINE BESYLATE 10 MG TABLET PO SCH (10:12)
[2018-08-29] MEDS: INSULIN REG, HUMAN 100 UNIT/ML 3 ML VIAL (PYX) SUBCUT PRN (12:25)
[2018-08-29 15:42] VITALS: BP 194/119
--- NOTE | 2018-08-29 16:34 | PDOC DISCHARGE SUMMARY ---
General - Admit/Disc Date/PCP Admission Date/Primary Care Provider: 08/22/18 22:52 Discharge Date: 08/29/18 - Discharge Diagnosis (1) Acute cholecystitis Is this a current diagnosis for this admission?: Yes Summary: Was given antibiotics until her clinical situation improved. Had an uneventful cholecystectomy. Antibiotics were continued for 1 day after surgery. Eating and drinking without difficulty now. (2) Diabetes mellitus type 2 in obese Is this a current diagnosis for this admission?: Yes Summary: She apparently was not taking her insulin for a few weeks. Blood sugars were fairly well controlled with insulin on a sliding scale along with a consistent carbohydrate diet. Have given her a prescription for the Lantus she was supposed to be taking at home. (3) Hypertensive urgency Is this a current diagnosis for this admission?: Yes Summary: She is not sure what blood pressure medicine she was supposed to be taking but had not taken them for several weeks prior to hospital admission. We got her blood pressure under control with several different medications here, and have given her prescriptions for all of them. - Additional Information Resuscitation Status: Full Code Discharge Diet: Cardiac, Diabetic Discharge Activity: Other Prescriptions: Amlodipine Besylate [Norvasc 10 mg Tablet] 10 mg PO DAILY #30 tablet Hydralazine HCl [Apresoline 50 mg Tablet] 50 mg PO Q8 #90 tablet Hydrochlorothiazide [Hydrodiuril 12.5 mg Tablet] 12.5 mg PO QAM #30 tablet Insulin Glargine,Hum.rec.anlog [Lantus Insulin 100 Unit/mL] 30 unit SUBCUT QHS #1 insuln.pen Lisinopril [Prinivil 10 mg Tablet] 20 mg PO Q12 #120 tablet Metoprolol Succinate [Toprol Xl 25 mg Tab.sr] 25 mg PO Q12 #60 tab.sr.24h Home Medications: Amlodipine Besylate [Norvasc 10 mg Tablet] 10 mg PO DAILY #30 tablet 08/29/18 Hydralazine HCl [Apresoline 50 mg Tablet] 50 mg PO Q8 #90 tablet 08/29/18 Hydrochlorothiazide [Hydrodiuril 12.5 mg Tablet] 12.5 mg PO QAM #30 tablet 08/29/18 Insulin Glargine,Hum.rec.anlog [Lantus Insulin 100 Unit/mL] 30 unit SUBCUT QHS #1 insuln.pen 08/29/18 Lisinopril [Prinivil 10 mg Tablet] 20 mg PO Q12 #120 tablet 08/29/18 Metoprolol Succinate [Toprol Xl 25 mg Tab.sr] 25 mg PO Q12 #60 tab.sr.24h 08/29/18 History of Present Illness History of Present Illness: PHILLIP DORANTES is a 48 year old female who presented to the emergency room with a 2-week history of abdominal pain. She admits that she began having abdominal pain 2 weeks prior to her emergency room visit that was initially just a moderate colicky pain lasting for 30-60 minutes at a time and occurring once or twice a day. Over the course of the last 2 weeks the pain has gradually worsened to the point where it is now an intermittant, nonradiating, severe, colicky pain in the epigastric region of her abdomen, lasting for 2 or more hours, occurring 2 or 3 times a day and generally occurring within 30-60 minutes of ingestion of food. Over the last 2 days patient has developed nausea and vomiting associated with the pain and has been unable to keep down any solids or fluids. She denies prior similar episodes and has not identified any other aggravating or ameliorating factors for her abdominal pain. She further admits a history of diabetes hypertension and coronary artery disease for which she is supposed to be taking medications but she discontinued these several months ago. In the emergency room she was found to be severely hypertensive, hyperglycemic and dehydrated. A CT scan of the abdomen revealed acute cholecystitis. She was treated with IV fluids and given antiemetics, analgesics and antihypertensives. She was also given insulin for her hyperglycemia and was subsequently admitted to the hospital for further evaluation and treatment. Hospital Course Hospital Course: We got her blood sugar and her blood pressure under control. Will use Lantus and a sliding scale for her diabetes, and for different medications for her blood pressure. Once these were improved, she had an elective cholecystectomy. Antibiotics were continued for 1 day postoperatively and then discontinued. Today she was eating, drinking, and ambulating independently without difficulty. She will follow wound care and activity recommendations per surgery. Prescriptions were given for the medication she said she had not been taking for the past several weeks. Her labs and examination were reassuring and she was discharged in good condition. Physical Exam Vital Signs: Temp Pulse Resp BP Pulse Ox 98.0 F 84 20 194/119 H 100 08/29/18 15:40 08/29/18 15:40 08/29/18 15:40 08/29/18 15:40 08/29/18 15:40 Intake & Output 08/28/18 08/29/18 08/30/18 06:59 06:59 06:59 Intake Total 1839 1293 50 Output Total 10 Balance 1829 1293 50 Weight 96 kg 96.7 kg General appearance: PRESENT: no acute distress, cooperative, disheveled, morbidly obese Respiratory exam: PRESENT: clear to auscultation ac, symmetrical, unlabored. ABSENT: accessory muscle use, crackles, prolonged expiratory phas, rhonchi, tachypnea, wheezes Cardiovascular exam: PRESENT: RRR, +S1, +S2 Pulses: PRESENT: normal carotid pulses Vascular exam: PRESENT: normal capillary refill GI/Abdominal exam: PRESENT: normal bowel sounds, soft, appropriate tenderness - Right upper quadrant. ABSENT: distended, guarding, rebound Extremities exam: ABSENT: clubbing, pedal edema Musculoskeletal exam: PRESENT: normal inspection. ABSENT: deformity Neurological exam: PRESENT: awake, oriented to person, oriented to place, oriented to situation Psychiatric exam: PRESENT: flat affect, normal mood Skin exam: PRESENT: dry, warm Results Laboratory Results: 08/28/18 03:34 08/28/18 03:34 08/22/18 08/22/18 08/23/18 16:00 20:28 02:24 Creatine Kinase CK-MB (CK-2) 0.42 Troponin I 0.044 0.037 0.035 08/23/18 08/23/18 08/23/18 02:24 09:19 09:19 Creatine Kinase 76 80 CK-MB (CK-2) 0.32 Troponin I 0.034 08/23/18 08/23/18 08/27/18 15:47 15:47 15:00 Creatine Kinase 62 51 CK-MB (CK-2) 0.37 Troponin I 0.032 08/27/18 08/27/18 08/27/18 15:00 21:19 21:19 Creatine Kinase 84 CK-MB (CK-2) 0.54 1.00 Troponin I 0.042 0.037 08/28/18 08/28/18 03:34 03:34 Creatine Kinase 73 CK-MB (CK-2) 0.73 Troponin I 0.036 Impressions: Chest X-Ray 08/22/18 15:40 IMPRESSION: NO ACUTE RADIOGRAPHIC FINDING IN THE CHEST. Abdomen/Pelvis CT 08/22/18 19:24 IMPRESSION: Abnormal appearance to the gallbladder, suspicious for cholecystitis. Correlate with history and patient exam. Fatty infiltrative change to the liver. Simple left renal cyst TECHNICAL DOCUMENTATION: Quality ID # 436: Final reports with documentation of one or more dose reduction techniques (e.g., Automated exposure control, adjustment of the mA and/or kV according to patient size, use of iterative reconstruction technique) copyright 2011 [employer]- All Rights Reserved Abdomen Ultrasound 08/25/18 00:00 IMPRESSION: Thickening of the gallbladder wall with a small amount of pericholecystic fluid. Slightly concerning for acalculous cholecystitis. Negative sonographic Rojas sign. Small right pleural effusion. Renal Ultrasound 08/25/18 00:00 IMPRESSION: 1.No hydronephrosis. 2. 2.8 cm left renal cyst. Abdomen MRI 08/26/18 00:00 IMPRESSION: Thickened gallbladder wall and trace of pericholecystic fluid suggesting acalculous cholecystitis. No common bile duct stone or biliary dilatation. Qualifiers - * PATIENT BEING DISCHARGED WITH ANY OF THE FOLLOWING DIAGNOSIS: No
[2018-08-30] MEDS ORDERED: SUCRALFATE 1 GM TABLET PO SCH (08:00)
--- NOTE | 2018-09-23 18:44 | PDOC PROGRESS REPORT ---
Subjective Progress Note for:: 08/27/18 Subjective:: No adverse events overnight. No new complaints. She did not have surgery yesterday but will have it today. She is npo. Afebrile. Reason For Visit: CHOLECYSTITIS, HYPERTENSIVE CRISIS Physical Exam Vital Signs: Temp Pulse Resp BP Pulse Ox 98.0 F 84 20 194/119 H 100 08/29/18 15:40 08/29/18 15:40 08/29/18 15:40 08/29/18 15:40 08/29/18 15:40 General appearance: PRESENT: no acute distress, cooperative, disheveled, morbidly obese Respiratory exam: PRESENT: clear to auscultation ac, symmetrical, unlabored. ABSENT: accessory muscle use, crackles, prolonged expiratory phas, rhonchi, tachypnea, wheezes Cardiovascular exam: PRESENT: RRR, +S1, +S2 Pulses: PRESENT: normal carotid pulses Vascular exam: PRESENT: normal capillary refill GI/Abdominal exam: PRESENT: normal bowel sounds, soft, tenderness - Right upper quadrant. ABSENT: distended, guarding, rebound Extremities exam: ABSENT: clubbing, pedal edema Musculoskeletal exam: PRESENT: normal inspection. ABSENT: deformity Neurological exam: PRESENT: awake, oriented to person, oriented to place, oriented to situation Psychiatric exam: PRESENT: flat affect, normal mood Skin exam: PRESENT: dry, warm Results Laboratory Results: 08/28/18 03:34 08/28/18 03:34 08/22/18 08/22/18 08/23/18 16:00 20:28 02:24 Creatine Kinase CK-MB (CK-2) 0.42 Troponin I 0.044 0.037 0.035 08/23/18 08/23/18 08/23/18 02:24 09:19 09:19 Creatine Kinase 76 80 CK-MB (CK-2) 0.32 Troponin I 0.034 08/23/18 08/23/18 08/27/18 15:47 15:47 15:00 Creatine Kinase 62 51 CK-MB (CK-2) 0.37 Troponin I 0.032 08/27/18 08/27/18 08/27/18 15:00 21:19 21:19 Creatine Kinase 84 CK-MB (CK-2) 0.54 1.00 Troponin I 0.042 0.037 08/28/18 08/28/18 03:34 03:34 Creatine Kinase 73 CK-MB (CK-2) 0.73 Troponin I 0.036 Impressions: Chest X-Ray 08/22/18 15:40 IMPRESSION: NO ACUTE RADIOGRAPHIC FINDING IN THE CHEST. Abdomen/Pelvis CT 08/22/18 19:24 IMPRESSION: Abnormal appearance to the gallbladder, suspicious for cholecystitis. Correlate with history and patient exam. Fatty infiltrative change to the liver. Simple left renal cyst TECHNICAL DOCUMENTATION: Quality ID # 436: Final reports with documentation of one or more dose reduction techniques (e.g., Automated exposure control, adjustment of the mA and/or kV according to patient size, use of iterative reconstruction technique) copyright 2011 [employer]- All Rights Reserved Abdomen Ultrasound 08/25/18 00:00 IMPRESSION: Thickening of the gallbladder wall with a small amount of pericholecystic fluid. Slightly concerning for acalculous cholecystitis. Negative sonographic Rojas sign. Small right pleural effusion. Renal Ultrasound 08/25/18 00:00 IMPRESSION: 1.No hydronephrosis. 2. 2.8 cm left renal cyst. Abdomen MRI 08/26/18 00:00 IMPRESSION: Thickened gallbladder wall and trace of pericholecystic fluid suggesting acalculous cholecystitis. No common bile duct stone or biliary dilatation. Assessment and Plan - Diagnosis (1) Acute cholecystitis Is this a current diagnosis for this admission?: Yes Plan: Cholecystectomy today. (2) Diabetes mellitus type 2 in obese Is this a current diagnosis for this admission?: Yes Plan: Suspect noncompliance at home. Sugars have decent control on current regimen. (3) Hypertensive urgency Is this a current diagnosis for this admission?: Yes Plan: Resolved. - Time Time Spent with patient: 15-24 minutes
== END 2018-08-29 16:01 | disposition home or self-care (01) | DRG 418 ==
LOC: ER 15:10 → EH 22:52 → 3N 08-23 13:51 → 3S 08-27 01:33
PROVIDERS: ADMIT Emergency Medicine; ATTEND Emergency Medicine
PROC: 0FT44ZZ Resection of Gallbladder, Percutaneous Endoscopic Approach (ICD-10-PCS; principal; 2018-08-27 09:15)
DX: K81.0 Acute cholecystitis (principal); I50.22 Chronic systolic (congestive) heart failure; I16.1 Hypertensive emergency; E11.8 Type 2 diabetes mellitus with unspecified complications; I27.20 Pulmonary hypertension, unspecified; I11.0 Hypertensive heart disease with heart failure; I25.10 Atherosclerotic heart disease of native coronary artery without angina pectoris; Z79.01 Long term (current) use of anticoagulants; Z79.82 Long term (current) use of aspirin; Z79.4 Long term (current) use of insulin; Z79.899 Other long term (current) drug therapy; Z91.14 Patient's other noncompliance with medication regimen
CPT/HCPCS: 36415; 71045; 74177; 74181; 76705; 76770; 790; 80048; 80053; 80061; 80074; 80076; 81001; 82150; 82550; 82553; 82803; 82962; 83036; 83605; 83690; 83735; 84439; 84443; 84481; 84484; 84703; 85025; 85610; 87040; 87077; 87086; 87186; 88304; 90686; 93005; 93010; 93306; 93975; 96361; 96374; 96375; 99285; J0131; J0330; J0360; J1100; J1170; J1644; J1815; J1885; J2001; J2250; J2270; J2405; J2543; J2704; J2765; J3010; J3490; J7030; J7050; S0164

== ENCOUNTER 2018-09-03 08:58 | Emergency (ER) | payer OTHER ==
[2018-09-03] MEDS ORDERED: ONDANSETRON 4 MG TAB.RAPDIS ONE (09:22)
[2018-09-03] MEDS ORDERED: METOCLOPRAMIDE HCL INJ/PF 10 MG/2 ML SDV IV ONE (09:25)
[2018-09-03] MEDS ORDERED: DIPHENHYDRAMINE HCL 50 MG/ML VIAL IV ONE (09:26)
[2018-09-03] MEDS ORDERED: RINGERS SOLUTION,LACTATED 1,000 ML IV ONE (09:27)
[2018-09-03] MEDS ORDERED: ONDANSETRON 4 MG TAB.RAPDIS PO ONE (09:28)
--- NOTE | 2018-09-03 09:28 | ER Document Report ---
ED Medical Screen (RME) - General Chief Complaint: Nausea/Vomiting Stated Complaint: VOMITING Time Seen by Provider: 09/03/18 09:25 Mode of Arrival: Ambulatory Information source: Patient Notes: This is a 48-year-old female with insulin requiring diabetes, hypertension, status post recent admission for hypertensive crisis and acute cholecystitis which eventually led to an uneventful cholecystectomy. Patient presents to the emergency room with a 3 of nausea, vomiting, not tolerating fluid. Patient has not been taking her medicines because of financial reasons. Patient denies fever. TRAVEL OUTSIDE OF THE [place] IN LAST 30 DAYS: No - Related Data Allergies/Adverse Reactions: No Known Allergies Allergy (Verified 09/03/18 09:00) Past Medical History - Social History Chew tobacco use (# tins/day): No Frequency of alcohol use: None Drug Abuse: None - Past Medical History Cardiac Medical History: Reports: Hx Congestive Heart Failure, Hx Coronary Artery Disease, Hx Hypercholesterolemia, Hx Hypertension, Hx Heart Murmur Pulmonary Medical History: Denies: Hx Asthma, Hx COPD, Hx Respiratory Failure Neurological Medical History: Denies: Hx Seizures Endocrine Medical History: Reports: Hx Diabetes Mellitus Type 2. Denies: Hx Diabetes Mellitus Type 1, Hx Hyperthyroidism, Hx Hypothyroidism Renal/ Medical History: Denies: Hx Peritoneal Dialysis GI Medical History: Denies: Hx Cirrhosis, Hx Hepatitis Musculoskeltal Medical History: Denies Hx Arthritis, Denies Hx Gout Skin Medical History: Denies Hx Eczema, Denies Hx Psoriasis Psychiatric Medical History: Denies: Hx Depression Infectious Medical History: Denies: Hx Hepatitis Past Surgical History: Reports: Hx Cardiac Catheterization, Hx Cholecystectomy, Hx Coronary Stent - Immunizations Hx Diphtheria, Pertussis, Tetanus Vaccination: Yes History of Influenza Vaccine for 03/2017 - 08/2017 Season: No Physical Exam - Vital signs Vitals: Temp Pulse Resp BP Pulse Ox 97.8 F 108 H 24 H 190/108 H 96 09/03/18 09:09 09/03/18 09:09 09/03/18 09:09 09/03/18 09:09 09/03/18 09:09 Course - Vital Signs Vital signs: Temp Pulse Resp BP Pulse Ox 97.8 F 108 H 24 H 190/108 H 96 09/03/18 09:09 09/03/18 09:09 09/03/18 09:09 09/03/18 09:09 09/03/18 09:09
[2018-09-03] MEDS ORDERED: AMLODIPINE BESYLATE 10 MG TABLET PO ONE (09:31)
--- NOTE | 2018-09-03 09:38 | ER Document Report ---
ED GI/ - General Chief Complaint: Nausea/Vomiting Stated Complaint: VOMITING Time Seen by Provider: 09/03/18 09:25 Mode of Arrival: Ambulatory Information source: Patient Notes: Pt is a 48 year old female with a history of diabetes, hypertension, recent cholecystectomy in July 2018, who presents to the ER today for epigastric pain, right shoulder pain, nausea, vomiting, hypertensive on arrival at 200/110, has not had her medications due to cost of getting them. She has a history of n oncompliance. She denies headache, n/t anywhere, weakness anywhere, blurred vision, chest pain or sob, facial droop. TRAVEL OUTSIDE OF THE [place] IN LAST 30 DAYS: No - Related Data Allergies/Adverse Reactions: No Known Allergies Allergy (Verified 09/03/18 09:00) Past Medical History - General Information source: Patient - Social History Smoking Status: Never Smoker Chew tobacco use (# tins/day): No Frequency of alcohol use: None Drug Abuse: None Family History: Reviewed & Not Pertinent Patient has suicidal ideation: No Patient has homicidal ideation: No - Past Medical History Cardiac Medical History: Reports: Hx Congestive Heart Failure, Hx Coronary Artery Disease, Hx Hypercholesterolemia, Hx Hypertension, Hx Heart Murmur Pulmonary Medical History: Denies: Hx Asthma, Hx COPD, Hx Respiratory Failure Neurological Medical History: Denies: Hx Seizures Endocrine Medical History: Reports: Hx Diabetes Mellitus Type 2. Denies: Hx Diabetes Mellitus Type 1, Hx Hyperthyroidism, Hx Hypothyroidism Renal/ Medical History: Denies: Hx Peritoneal Dialysis GI Medical History: Denies: Hx Cirrhosis, Hx Hepatitis Musculoskeletal Medical History: Denies Hx Arthritis, Denies Hx Gout Skin Medical History: Denies Hx Eczema, Denies Hx Psoriasis Psychiatric Medical History: Denies: Hx Depression Infectious Medical History: Denies: Hx Hepatitis Past Surgical History: Reports: Hx Cardiac Catheterization, Hx Cholecystectomy, Hx Coronary Stent - Immunizations Hx Diphtheria, Pertussis, Tetanus Vaccination: Yes Review of Systems - Review of Systems Constitutional: No symptoms reported EENT: No symptoms reported Cardiovascular: See HPI Respiratory: No symptoms reported Gastrointestinal: See HPI Genitourinary: No symptoms reported Female Genitourinary: No symptoms reported Musculoskeletal: No symptoms reported Skin: No symptoms reported Hematologic/Lymphatic: No symptoms reported Neurological/Psychological: No symptoms reported Physical Exam - Vital signs Vitals: Temp Pulse Resp BP Pulse Ox 97.8 F 108 H 24 H 190/108 H 96 09/03/18 09:09 09/03/18 09:09 09/03/18 09:09 09/03/18 09:09 09/03/18 09:09 - Notes Notes: PHYSICAL EXAMINATION: GENERAL: obese, holding emesis bag, uncomfortable, but in no acute distress. HEAD: Atraumatic, normocephalic. EYES: Pupils equal round and reactive to light, extraocular movements intact, sclera anicteric, conjunctiva are normal. ENT: ear canals without erythema or foreign body, TMs pearly gaitan with good bony landmarks, nares patent, oropharynx clear without exudates. Moist mucous membranes. NECK: Normal range of motion, supple without lymphadenopathy LUNGS: CTAB and equal. No wheezes rales or rhonchi. HEART: tachycardic, but regular rhythm without murmurs ABDOMEN: Soft, mild diffuse tenderness. No guarding, no rebound BACK: no vertebral tenderness, normal ROM GI/: no CVA tenderness EXTREMITIES: Normal range of motion, no pitting edema. No cyanosis. NEUROLOGICAL: Cranial nerves grossly intact. Normal sensory/motor exams. PSYCH: Normal mood, normal affect. SKIN: Warm, Dry, normal turgor, no rashes or lesions noted Course - Re-evaluation Re-evalutation: 09/03/18 15:51 labs unremarkable today, CT head normal due to mumbling/slurring speech when I walk into the room to evaluate her, but she has been given Benadryl and the nurse seems to think it was the Benadryl because she was not doing it prior. CT negative of the head, CT abdomen and pelvis is really unremarkable for any acute findings, mild amount of fluid to the right upper quadrant which is consistent with recent cholecystectomy, no sign of abscess, white blood cell count normal, she is afebrile, I do believe that today she just has some noncompliance issues and she is hypertensive which did resolve with 10 of IV hydralazine, her tachycardia resolved with some fluids, nausea and vomiting resolved with fluids and nausea medication. Patient is advised that she really needs to stay on her blood pressure medications or she will have to be admitted again for hypertensive crisis and emergency like she has been before multiple times. Patient was given prescription for hydralazine to see if it is cheaper than the other blood pressure medication that her primary care provider has her on. She is to follow-up with her primary care provider within 3 days. To return with any worsening symptoms. 09/04/18 07:59 - Vital Signs Vital signs: Temp Pulse Resp BP Pulse Ox 97.5 F 108 H 13 169/107 H 99 09/03/18 17:01 09/03/18 09:09 09/03/18 17:01 09/03/18 17:01 09/03/18 17:01 - Laboratory Result Diagrams: 09/03/18 09:51 09/03/18 09:51 Laboratory results interpreted by me: 09/03/18 09/03/18 09/03/18 09:51 09:51 10:31 Hgb 10.9 L Hct 33.5 L MCH 25.9 L RDW 15.5 H VBG pH 7.44 H VBG pCO2 32.8 L Sodium 132.6 L Chloride 97 L Glucose 313 H Direct Bilirubin 0.7 H Alkaline Phosphatase 148 H Urine Glucose (UA) 09/03/18 16:40 Hgb Hct MCH RDW VBG pH VBG pCO2 Sodium Chloride Glucose Direct Bilirubin Alkaline Phosphatase Urine Glucose (UA) >=500 H Critical Care Note - Critical Care Note Total time excluding time spent on procedures (mins): 35 - 35 minutes spent in critical care time with patient, consulted with attending, speaking with family, placing orders and evaluating tests and labs. Discharge - Discharge Clinical Impression: Hypertensive urgency, Epigastric pain Condition: Stable Disposition: HOME, SELF-CARE Instructions: Abdominal Pain ([facility]) Additional Instructions: Return immediately for any new or worsening symptoms. Follow up with primary care provider, call tomorrow to make followup appoin tment. Prescriptions: Hydralazine HCl [Apresoline 25 mg Tablet] 25 mg PO BID #20 tablet
[2018-09-03 10:11] LABS: ABSOLUTE BASOPHILS # (AUTO) 0.1 10^3/uL (0.0-0.2); ABSOLUTE EOSINOPHILS # (AUTO) 0.1 10^3/uL (0.0-0.6); ABSOLUTE LYMPHOCYTES (AUTO) 1.5 10^3/uL (0.5-4.7); ABSOLUTE MONOCYTES (AUTO) 0.5 10^3/uL (0.1-1.4); BASOPHILS % (AUTO) 1.1 % (0-2); EOSINOPHILS % (AUTO) 0.6 % (0-6); HEMATOCRIT 33.5 % (36.0-47.0); HEMOGLOBIN 10.9 g/dL (12.0-15.5); LYMPHOCYTES % (AUTO) 18.8 % (13-45); MEAN CORPUSCULAR HEMOGLOBIN 25.9 pg (27.0-33.4); MEAN CORPUSCULAR HGB CONC 32.5 g/dL (32.0-36.0); MEAN CORPUSCULAR VOLUME 80 fl (80-97); PLATELET COUNT 424 10^3/uL (150-450); RED BLOOD COUNT 4.21 10^6/uL (3.72-5.28); RED CELL DISTRIBUTION WIDTH 15.5 % (11.5-14.0); SEGMENTED NEUTROPHILS % (AUTO) 73.5 % (42-78); TOTAL CELLS COUNTED % (AUTO) 100 %; WHITE BLOOD COUNT 8.2 10^3/uL (4.0-10.5)
[2018-09-03 10:29] LABS: ALANINE AMINOTRANSFERASE 41 U/L (9-52); ALBUMIN 3.8 g/dL (3.5-5.0); ALKALINE PHOSPHATASE 148 U/L (38-126); ANION GAP 13 (5-19); ASPARTATE AMINO TRANSFERASE 30 U/L (14-36); BILIRUBIN,DIRECT 0.7 mg/dL (0.0-0.4); BILIRUBIN,TOTAL 1.3 mg/dL (0.2-1.3); BLOOD UREA NITROGEN 11 mg/dL (7-20); CALCIUM 9.2 mg/dL (8.4-10.2); CARBON DIOXIDE 23 mmol/L (22-30); CHLORIDE 97 mmol/L (98-107); GLUCOSE 313 mg/dL (75-110); LIPASE 59.1 U/L (23-300); POTASSIUM 3.9 mmol/L (3.6-5.0); SODIUM 132.6 mmol/L (137-145); TOTAL PROTEIN 7.2 g/dL (6.3-8.2)
[2018-09-03 10:42] LABS: VENOUS BLOOD BASE EXCESS -1.3 mmol/L; VENOUS BLOOD PCO2 32.8 mmHg (35-63); VENOUS BLOOD PH 7.44 (7.30-7.42)
[2018-09-03] MEDS ORDERED: PANTOPRAZOLE SODIUM 40 MG VIAL IV ONE (11:17)
[2018-09-03] MEDS ORDERED: INSULIN REG, HUMAN 100 UNIT/ML 3 ML VIAL (PYX) SUBCUT ONE (11:20)
[2018-09-03] MEDS ORDERED: HYDRALAZINE HCL INJ/PF 20 MG/1 ML SDV IV ONE (12:03)
[2018-09-03] MEDS ORDERED: MORPHINE SULFATE 10 MG/ML INJ IV ONE (12:11)
--- NOTE | 2018-09-03 12:53 | RADIOLOGY REPORT (SQ) ---
EXAM DESCRIPTION: CT HEAD WITHOUT COMPLETED DATE/TIME: 09/03/2018 12:38 pm REASON FOR STUDY: slurred speech, hypertensive crisis COMPARISON: CT brain 08/30/2017, 05/13/2017 Brain MRI 05/13/2017 TECHNIQUE: Axial images acquired through the brain without intravenous contrast. Images reviewed wi th bone, brain and subdural windows. Additional sagittal and coronal reconstructions were generated. Images stored on PACS. All CT scanners at this facility use dose modulation, iterative reconstruction, and/or weight based d osing when appropriate to reduce radiation dose to as low as reasonably achievable (ALARA). [facility]: Dose Right [facility]: CareDose [facility]: Dose Right [facility]: Teradose 4D [facility]: Memrise RADIATION DOSE: CT Rad equipment meets quality standard of care and radiation dose reduction techniq ues were employed. CTDIvol: 53.2 mGy. DLP: 991 mGy-cm. mGy. LIMITATIONS: None. FINDINGS: VENTRICLES: Normal size and contour. CEREBRUM: No CT evidence of acute large territory ischemic change, acute intracranial hemorrhage, mas s effect, or midline shift. 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 Old infarcts in the left MCA distribution along the insular cortex and left perisylvian frontal lobe. CEREBELLUM: No masses. No hemorrhage. No alteration of density. No evidence for acute infarction. EXTRAAXIAL SPACES: No fluid collections. No masses. ORBITS AND GLOBE: No intra- or extraconal masses. Normal contour of globe without masses. CALVARIUM: No fracture. PARANASAL SINUSES: No fluid or mucosal thickening. SOFT TISSUES: No mass or hematoma. OTHER: No other significant finding. 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 No acute findings. EVIDENCE OF ACUTE STROKE: NO. COMMENT: Findings discussed with Abbey Saldana in the emergency room Quality ID # 436: Final reports with documentation of one or more dose reduction techniques (e.g., Au tomated exposure control, adjustment of the mA and/or kV according to patient size, use of iterative reconstruction technique) TECHNICAL DOCUMENTATION: JOB ID: [id number] [employer]- All Rights Reserved Reading location - IP/workstation name: [email or web address]
--- NOTE | 2018-09-03 13:00 | RADIOLOGY REPORT (SQ) ---
EXAM DESCRIPTION: CHEST SINGLE VIEW COMPLETED DATE/TIME: 09/03/2018 12:40 pm REASON FOR STUDY: tachypnea, hypertensive crisis, tachycardic COMPARISON: 08/22/2018 EXAM PARAMETERS: NUMBER OF VIEWS: One view. TECHNIQUE: Single frontal radiographic view of the chest acquired. RADIATION DOSE: NA LIMITATIONS: None. FINDINGS: LUNGS AND PLEURA: No opacities, masses or pneumothorax. No pleural effusion. MEDIASTINUM AND HILAR STRUCTURES: No masses. Contour normal. HEART AND VASCULAR STRUCTURES: Cardiomegaly, unchanged finding. Normal vasculature. BONES: No acute findings. HARDWARE: Loop recorder device overlies the left anterior chest wall. OTHER: No other significant finding. IMPRESSION: 1. No significant interval changes since the prior study dated 08/22/2018. No acute fin dings. TECHNICAL DOCUMENTATION: JOB ID: [id number] [employer]- All Rights Reserved Reading location - IP/workstation name: [email or web address]
--- NOTE | 2018-09-03 13:07 | RADIOLOGY REPORT (SQ) ---
EXAM DESCRIPTION: CT ABD/PELVIS WITH IV ONLY COMPLETED DATE/TIME: 09/03/2018 12:38 pm REASON FOR STUDY: epigastric pain, n/v, hx of recent cholecystectomy COMPARISON: MRI abdomen 08/26/2018 Right upper quadrant ultrasound 08/25/2018 TECHNIQUE: CT scan of the abdomen and pelvis performed using helical scanning technique with dynamic intravenous contrast injection. No oral contrast. Images reviewed with lung, soft tissue, and bone windows. Reconstructed coronal and sagittal MPR images reviewed. Delayed images for evaluation of the urinary system also acquired. All images stored on PACS. All CT scanners at this facility use dose modulation, iterative reconstruction, and/or weight based d osing when appropriate to reduce radiation dose to as low as reasonably achievable (ALARA). [facility]: Dose Right [facility]: CareDose [facility]: Dose Right [facility]: Teradose 4D [facility]: OnVantage CONTRAST TYPE AND DOSE: contrast/concentration: Isovue 350.00 mg/ml; Total Contrast Delivered: 100.0 ml; Total Saline Delivered: 72.0 ml RENAL FUNCTION: Creatinine 0.54 RADIATION DOSE: CT Rad equipment meets quality standard of care and radiation dose reduction techniq ues were employed. CTDIvol: 17.8 - 20.2 mGy. DLP: 2119 mGy-cm.. LIMITATIONS: None. FINDINGS: LOWER CHEST: Trace right pleural effusion with right basilar airspace disease likely atele ctasis. Moderate cardiomegaly. LIVER: Normal size. No masses. No dilated ducts. SPLEEN: Normal size. No focal lesions. Trace left subphrenic fluid PANCREAS: No masses. No significant calcifications. No adjacent inflammation or peripancreatic fluid collections. Pancreatic duct not dilated. GALLBLADDER: Post cholecystectomy. There are surgical clips in the gallbladder fossa with a trace am ount of fluid, best shown on coronal image 32 ADRENAL GLANDS: No significant masses or asymmetry. RIGHT KIDNEY AND URETER: No solid masses. No significant calcifications. No hydronephrosis or hyd roureter. LEFT KIDNEY AND URETER: No solid masses. 3 cm left renal cortical cyst No significant calcifications . No hydronephrosis or hydroureter. AORTA AND VESSELS: No aneurysm. No dissection. Renal arteries, SMA, celiac without stenosis. RETROPERITONEUM: No retroperitoneal adenopathy, hemorrhage or masses. BOWEL AND PERITONEAL CAVITY: Trace amount of left subphrenic fluid and right subphrenic fluid. No CT evidence of bowel obstruction or free intraperitoneal air or fluid. APPENDIX: Normal. PELVIS: No mass. No free fluid. Normal bladder. Normal size female pelvic organs ABDOMINAL WALL: No masses. No hernias. Diffuse third-spacing of fluid with edema in the subcutaneous fat BONES: No significant or acute findings. OTHER: No other significant finding. IMPRESSION: Small amount of fluid in the right upper quadrant at the gallbladder fossa post cholecys tectomy. Trace right and left subphrenic fluid Small right pleural effusion with minimal right basilar atelectasis Report discussed with Abbey Saldana in the emergency room TECHNICAL DOCUMENTATION: JOB ID: [id number] Quality ID # 436: Final reports with documentation of one or more dose reduction techniques (e.g., Au tomated exposure control, adjustment of the mA and/or kV according to patient size, use of iterative reconstruction technique) 2010 [employer]- All Rights Reserved Reading location - IP/workstation name: [email or web address]
[2018-09-03] MEDS ORDERED: NORMAL SALINE 1000 ML 1,000 ML IV ONE (14:39)
[2018-09-03 16:51] LABS: APPEARANCE,URINE CLEAR; BILIRUBIN,URINE NEGATIVE (NEGATIVE); COLOR,URINE STRAW; GLUCOSE, URINE >=500 mg/dL (NEGATIVE); KETONES,URINE NEGATIVE (NEGATIVE); LEUKOCYTE ESTERASE,URINE NEGATIVE (NEGATIVE); NITRITE,URINE NEGATIVE (NEGATIVE); PROTEIN,URINE NEGATIVE (NEGATIVE); URINE SPECIFIC GRAVITY 1.013; UROBILINOGEN,URINE NEGATIVE mg/dL (<2.0)
[2018-09-03 17:06] VITALS: BP 169/107
--- NOTE | 2018-09-03 20:54 | EKG REPORT ---
SEVERITY:- ABNORMAL ECG - SINUS TACHYCARDIA PROBABLE LEFT ATRIAL ABNORMALITY NONSPECIFIC T ABNORMALITIES, LATERAL LEADS BORDERLINE PROLONGED QT INTERVAL : Confirmed by: Celine Dorsey MD 03-Sep-2018 20:54:08
== END 2018-09-03 17:13 | disposition home or self-care (01) ==
LOC: ER 08:58
DX: I16.0 Hypertensive urgency (principal); R10.13 Epigastric pain; R47.81 Slurred speech; R47.9 Unspecified speech disturbances; R11.2 Nausea with vomiting, unspecified; E66.9 Obesity, unspecified; M25.511 Pain in right shoulder; E11.9 Type 2 diabetes mellitus without complications; I10 Essential (primary) hypertension; Z90.49 Acquired absence of other specified parts of digestive tract
CPT/HCPCS: 93005; 99285; 96361; 96374; 96375; 36415; 82962; 84702; 83690; 85025; 80053; 81001; 82803; 71045; 70450; 74177; 93010; J1200; S0119; J0360; J2765; J2270; S0164; J1815; J7030; J7120

== ENCOUNTER 2018-10-04 08:16 | Inpatient (IN) | payer OTHER ==
[2018-10-04] MEDS ORDERED: ONDANSETRON HCL INJ/PF 4 MG/2 ML SDV IV ONE (08:54)
[2018-10-04] MEDS ORDERED: METOPROLOL TARTRATE PF/INJ 5 MG/5 ML SDV IV ONE ×2 (09:12→11:05)
[2018-10-04 09:28] LABS: ABSOLUTE BASOPHILS # (AUTO) 0.1 10^3/uL (0.0-0.2); ABSOLUTE LYMPHOCYTES (AUTO) 2.2 10^3/uL (0.5-4.7); ABSOLUTE MONOCYTES (AUTO) 0.3 10^3/uL (0.1-1.4); ABSOLUTE NEUT (AUTO) 3.1 10^3/uL (1.7-8.2); BASOPHILS % (AUTO) 0.9 % (0-2); EOSINOPHILS % (AUTO) 0.2 % (0-6); HEMATOCRIT 32.3 % (36.0-47.0); HEMOGLOBIN 10.4 g/dL (12.0-15.5); LYMPHOCYTES % (AUTO) 38.2 % (13-45); MEAN CORPUSCULAR HEMOGLOBIN 24.1 pg (27.0-33.4); MEAN CORPUSCULAR HGB CONC 32.1 g/dL (32.0-36.0); MEAN CORPUSCULAR VOLUME 75 fl (80-97); MONOCYTES % (AUTO) 6.1 % (3-13); PLATELET COUNT 207 10^3/uL (150-450); RED BLOOD COUNT 4.31 10^6/uL (3.72-5.28); SEGMENTED NEUTROPHILS % (AUTO) 54.6 % (42-78); TOTAL CELLS COUNTED % (AUTO) 100 %; WHITE BLOOD COUNT 5.7 10^3/uL (4.0-10.5)
[2018-10-04 10:04] LABS: ALANINE AMINOTRANSFERASE 76 U/L (9-52); ALBUMIN 3.3 g/dL (3.5-5.0); ALKALINE PHOSPHATASE 202 U/L (38-126); ANION GAP 14 (5-19); ASPARTATE AMINO TRANSFERASE 79 U/L (14-36); BILIRUBIN,DIRECT 1.9 mg/dL (0.0-0.4); BILIRUBIN,TOTAL 3.2 mg/dL (0.2-1.3); BLOOD UREA NITROGEN 12 mg/dL (7-20); CALCIUM 8.7 mg/dL (8.4-10.2); CARBON DIOXIDE 24 mmol/L (22-30); CHLORIDE 95 mmol/L (98-107); CREATINE KINASE 70 U/L (30-135); GLUCOSE 249 mg/dL (75-110); LIPASE 136.7 U/L (23-300); SODIUM 132.8 mmol/L (137-145); TOTAL PROTEIN 7.1 g/dL (6.3-8.2)
[2018-10-04 10:10] LABS: POTASSIUM 2.9 mmol/L (3.6-5.0)
[2018-10-04] MEDS ORDERED: FAMOTIDINE INJ/PF 20 MG/2 ML SDV IV ONE (10:26)
[2018-10-04] MEDS ORDERED: HYDRALAZINE HCL INJ/PF 20 MG/1 ML SDV IV ONE (10:26)
[2018-10-04] MEDS ORDERED: POTASSIUM CHLORIDE 20 MEQ/15 ML UDCUP PO ONE (10:26)
[2018-10-04 10:27] LABS: APPEARANCE,URINE CLEAR; BILIRUBIN,URINE NEGATIVE (NEGATIVE); COLOR,URINE YELLOW; GLUCOSE, URINE NEGATIVE (NEGATIVE); KETONES,URINE NEGATIVE (NEGATIVE); LEUKOCYTE ESTERASE,URINE NEGATIVE (NEGATIVE); NITRITE,URINE NEGATIVE (NEGATIVE); PROTEIN,URINE 100 mg/dL (NEGATIVE); URINE SPECIFIC GRAVITY 1.005
--- NOTE | 2018-10-04 11:29 | RADIOLOGY REPORT (SQ) ---
EXAM DESCRIPTION: ACUTE ABDOMEN SERIES COMPLETED DATE/TIME: 10/04/2018 10:48 am REASON FOR STUDY: Constipation, daily vomiting COMPARISON: None. NUMBER OF VIEWS: Three views. TECHNIQUE: Frontal chest, supine abdomen and upright/decubitus abdomen radiographic images acquired. LIMITATIONS: None. FINDINGS: CHEST: Cardiomegaly. Loop recorder device overlying the lower anteromedial chest wall. Lungs clear of infiltrates. FREE AIR: None. No abnormal gas collections. BOWEL GAS PATTERN: Nonobstructive pattern. No dilated loops. A few small air-fluid levels on the upr ight image. CALCIFICATIONS: No suspicious calcifications. HARDWARE: None in the abdomen. SOFT TISSUES: No gross mass or suggestion of organomegaly. BONES: Degenerative mild changes at the sacral iliac joints and symphysis pubis. . Mild scoliosis of the lumbar spine, apex to the left. OTHER: Prior cholecystectomy. IMPRESSION: 1. No acute pulmonary findings. Cardiomegaly, no evidence for failure. 2. A few nonspecific air-fluid levels on the upright image. TECHNICAL DOCUMENTATION: JOB ID: [id number] [employer]- All Rights Reserved Reading location - IP/workstation name: [email or web address]
--- NOTE | 2018-10-04 14:43 | RADIOLOGY REPORT (SQ) ---
EXAM DESCRIPTION: MRI ABDOMEN WITHOUT COMPLETED DATE/TIME: 10/04/2018 2:07 pm REASON FOR STUDY: S/P Choley, N V, elevated bili and LFT's COMPARISON: CT abdomen pelvis 08/22/2018, 09/03/2018 MRI abdomen 08/26/2018 Three-way abdomen series 10/04/2018 TECHNIQUE: Noncontrast MRCP. Source and MIP images reviewed. LIMITATIONS: None. FINDINGS: GALLBLADDER: Surgically absent. No fluid in the gallbladder fossa INTRAHEPATIC DUCTS: Nondilated. EXTRAHEPATIC DUCTS: Common duct is normal caliber. No dilatation of the pancreatic duct. No ductal filling defects noted. PANCREAS: Generally homogeneous, no gross mass or significant signal alteration. No surrounding infl ammatory changes or fluid. Pancreatic duct is normal. LIVER, SPLEEN, KIDNEYS, ADRENALS: Trace right subphrenic fluid. Liver, spleen, adrenal glands, right kidney unremarkable. 3 cm left lower pole renal cortical cyst VESSELS: Patent LUNG BASES: Trace right pleural effusion right posterior costophrenic sulcus consolidation, atelectas is versus pneumonia OTHER: Findings called to Dr. Rasmussen IMPRESSION: Post cholecystectomy. No common bile duct stones. No intrahepatic biliary ductal dilat ation Trace right subphrenic fluid, trace right pleural effusion with minimal right basilar atelectasis. TECHNICAL DOCUMENTATION: JOB ID: [id number] [facility]- All Rights Reserved Reading location - IP/workstation name: [email or web address]
--- NOTE | 2018-10-04 14:44 | ER Document Report ---
Entered by EDMUNDO NESBITT SCRIBE 10/04/18 0918 Acting as scribe for:GURPREET HERNANDEZ MD ED General - General Chief Complaint: Vomiting Stated Complaint: VOMITING Time Seen by Provider: 10/04/18 08:49 Mode of Arrival: Ambulatory Information source: Patient Notes: Patient is a 36-year-old female with CAD, CHF, HTN, HLD, type 2 diabetes and a history of [place] presents to the emergency department complaining of vomiting onset 5 weeks ago. Patient states she had a cholecystectomy on August 27, 2018 and has been vomiting ever since. She states the vomiting is progressively worsening, stating she would vomit only every 2-3 days but is now vomiting every day, once a day. She states she has not seen a provider since she has been in the emergency department on September 03, 2018 complaining of vomiting. Patient also complains of decreased bowel movements further stating she has not had a bowel movement in 2 weeks. Patient is not currently taking any medications. The patient reports that she vomits every day, about 1 time a day. It is not happen at any particular time a day. It is not necessarily related to eating. Review of records shows that she has lost about 2 pounds in the last month since her visit here on 09/03/2018. TRAVEL OUTSIDE OF THE [place] IN LAST 30 DAYS: No - Related Data Allergies/Adverse Reactions: No Known Allergies Allergy (Verified 10/04/18 08:19) Past Medical History - General Information source: Patient - Social History Smoking Status: Never Smoker Cigarette use (# per day): No Chew tobacco use (# tins/day): No Smoking Education Provided: No Frequency of alcohol use: None Family History: Reviewed & Not Pertinent - Past Medical History Cardiac Medical History: Reports: Hx Congestive Heart Failure, Hx Coronary Artery Disease, Hx Hypercholesterolemia, Hx Hypertension, Hx Heart Murmur Endocrine Medical History: Reports: Hx Diabetes Mellitus Type 2 Past Surgical History: Reports: Hx Cardiac Catheterization, Hx Cholecystectomy, Hx Coronary Stent - Immunizations Hx Diphtheria, Pertussis, Tetanus Vaccination: Yes Review of Systems - Review of Systems Constitutional: No symptoms reported EENT: No symptoms reported Cardiovascular: No symptoms reported Respiratory: No symptoms reported Gastrointestinal: See HPI, Vomiting Genitourinary: No symptoms reported Female Genitourinary: No symptoms reported Musculoskeletal: No symptoms reported Skin: No symptoms reported Hematologic/Lymphatic: No symptoms reported Neurological/Psychological: No symptoms reported -: Yes All other systems reviewed and negative Physical Exam - Vital signs Vitals: Temp Pulse Resp BP Pulse Ox 97.3 F 111 H 16 164/122 H 98 10/04/18 08:27 10/04/18 08:27 10/04/18 08:27 10/04/18 08:27 10/04/18 08:27 - Notes Notes: GENERAL: Alert, interacts well. No acute distress. HEAD: Normocephalic, atraumatic. EYES: Pupils equal, round, and reactive to light. Extraocular movements intact. ENT: Oral mucosa moist, tongue midline. NECK: Full range of motion. Supple. Trachea midline. LUNGS: Clear to auscultation bilaterally, no wheezes, rales, or rhonchi. No r espiratory distress. HEART: Tachycaric. 3/6 systolic murmur. No gallops or rubs. ABDOMEN: Soft, morbidly obese, non-tender. Non-distended. Bowel sounds present in all 4 quadrants. No guarding, rigidity, or rebound. EXTREMITIES: Moves all 4 extremities spontaneously. No edema. NEUROLOGICAL: Alert and oriented x3. Normal speech. PSYCH: Normal affect, normal mood. SKIN: Warm, dry, normal turgor. No rashes or lesions noted. Course - Vital Signs Vital signs: Temp Pulse Resp BP Pulse Ox 97.3 F 111 H 24 H 190/108 H 99 10/04/18 08:27 10/04/18 08:27 10/04/18 11:01 10/04/18 11:01 10/04/18 11:01 - Laboratory Result Diagrams: 10/04/18 09:08 10/04/18 09:08 Laboratory results interpreted by me: 10/04/18 10/04/18 10/04/18 09:08 09:08 09:57 Hgb 10.4 L Hct 32.3 L MCV 75 L MCH 24.1 L RDW 17.0 H Sodium 132.8 L Potassium 2.9 L* Chloride 95 L Glucose 249 H Total Bilirubin 3.2 H Direct Bilirubin 1.9 H AST 79 H ALT 76 H Alkaline Phosphatase 202 H Albumin 3.3 L Urine Protein 100 H Urine Blood SMALL H Urine Urobilinogen 4.0 H - Diagnostic Test Radiology reviewed: Image reviewed, Reports reviewed - Acute abdominal series does not show an acute process. There is cardiomegaly. There are a few nonspecific air-fluid levels. MRCP does not show common duct stone. - Consults Cyril Sheridan NP Time consulted: 14:35 Consulted provider: will come to ER Critical Care Note - Critical Care Note Total time excluding time spent on procedures (mins): 35 Discharge - Discharge Clinical Impression: Hypokalemia, Uncontrolled hypertension, Elevated LFTs, Noncompliance with medication regimen Nausea and vomiting Qualifiers: Vomiting type: unspecified Vomiting Intractability: non-intractable Qualified Code(s): R11.2 - Nausea with vomiting, unspecified Condition: Good Disposition: ADMITTED INPATIENT Admitting Provider: Chris (Hospitalist) Unit Admitted: ESTHELA Scribe Attestation: 10/04/18 14:42 I personally performed the services described in the documentation, reviewed and edited the documentation which was dictated to the scribe in my presence, and it accurately records my words and actions. I personally performed the services described in the documentation, reviewed and edited the documentation which was dictated to the scribe in my presence, and it accurately records my words and actions.
[2018-10-04] MEDS ORDERED: ACETAMINOPHEN 325 MG TABLET PO PRN (15:58)
[2018-10-04] MEDS ORDERED: ONDANSETRON HCL INJ/PF 4 MG/2 ML SDV IV PRN (15:58)
[2018-10-04] MEDS ORDERED: HYDRALAZINE HCL INJ/PF 20 MG/1 ML SDV IV PRN (16:44)
[2018-10-04] MEDS ORDERED: GLUCAGON,HUMAN RECOMB 1 MG INJ IM PRN (17:07)
[2018-10-04] MEDS ORDERED: DEXTROSE 50%-WATER 25 GM/50 ML DISP.SYRIN IV PRN ×2 (17:07)
[2018-10-04] MEDS ORDERED: DEXTROSE 40% GEL 15 GM TUBE PO PRN ×2 (17:07)
--- NOTE | 2018-10-04 17:19 | PDOC H&P ---
History of Present Illness Admission Date/PCP: 10/04/18 15:36 Not established Patient complains of: Nausea, vomiting, headache History of Present Illness: PHILLIP DORANTES is a 48 year old female with past medical history of CAD, CHF, HTN, HLD, type 2 diabetes and a history of CT that presented to the emergency department complaining of vomiting onset 5 weeks ago. Patient states she had a cholecystectomy on August 27, 2018 and has been vomiting intermittently since that time. The patient does not appear to have any significant weight loss as her previous admission.She states she has not seen a provider since she has been in the emergency department on September 03, 2018 complaining of vomiting. Patient also complains of decreased bowel movements further stating she has not had a bowel movement in 2 weeks. Patient is not currently taking any medications. Vomiting has not happen at any particular time a day. It is not necessarily related to eating. MRCP in the emergency department was found to be unremarkable. The patient denies fevers. The patient was found to be significantly hypertensive. This is been present in the past as the patient does also have a history of cerebrovascular accident. The patient does admit to not taking any medications signing her lack of insurance. Upon my evaluation the patient was found to be a little groggy the patient did not appear to have taken any medications that should alter her this significantly. The patient's history of persistent hypertension, history of CVA will proceed with MRI. Past Medical History Cardiac Medical History: Reports: Congestive Heart Failure - EF is 40%, severe pulmonary hypertension, Coronary Artery Disease, Hyperlipidema, Hypertension, Heart Murmur Neurological Medical History: Denies: Seizures Endocrine Medical History: Reports: Diabetes Mellitus Type 2 Denies: Diabetes Mellitus Type 1, Hyperthyroidism, Hypothyroidism GI Medical History: Denies: Cirrhosis, Hepatitis Musculoskeltal Medical History: Denies: Arthritis, Gout Skin Medical History: Denies: Eczema, Psoriasis Psychiatric Medical History: Denies: Depression Hematology: Denies: Anemia, Bleeding Tendencies Past Surgical History Past Surgical History: Reports: Cardiac Catheterization, Cholecystectomy, Coronary Stent Social History Information Source: Patient Lives with: Family Smoking Status: Never Smoker Frequency of Alcohol Use: None Hx Recreational Drug Use: No Drugs: None Hx Prescription Drug Abuse: No Past Social History Note: 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 Patient resides at home with her children. She is surrogate decision-maker is her son Ten deng reached at [phone]. - Advance Directive Resuscitation Status: Full Code Surrogate healthcare decision maker:: [place] Family History Family History: Reviewed & Not Pertinent, Other Parental Family History Reviewed: Yes Children Family History Reviewed: Yes Sibling(s) Family History Reviewed.: Yes Medication/Allergy Home Medications: No Home Medications 10/04/18 Allergies/Adverse Reactions: No Known Allergies Allergy (Verified 10/04/18 08:19) Review of Systems ROS unobtainable: Due to mental status - The patient will awaken to answer simple yes and noes that are appropriate has a very slow response. Physical Exam Vital Signs: Temp Pulse Resp BP Pulse Ox 97.3 F 111 H 28 H 163/111 H 98 10/04/18 08:27 10/04/18 08:27 10/04/18 15:01 10/04/18 15:01 10/04/18 15:01 Intake & Output 10/02/18 10/03/18 10/04/18 23:59 23:59 23:59 Weight 90.8 kg General appearance: PRESENT: no acute distress, obese, well-developed. ABSENT: cooperative Head exam: PRESENT: atraumatic, normocephalic Eye exam: PRESENT: conjunctiva pink, EOMI, PERRLA. ABSENT: scleral icterus Ear exam: PRESENT: normal external ear exam Mouth exam: PRESENT: moist, tongue midline Neck exam: ABSENT: carotid bruit, JVD, lymphadenopathy, thyromegaly Respiratory exam: PRESENT: clear to auscultation ac. ABSENT: rales, rhonchi, wheezes Cardiovascular exam: PRESENT: RRR. ABSENT: diastolic murmur, rubs, systolic murmur Pulses: PRESENT: normal dorsalis pedis pul Vascular exam: PRESENT: normal capillary refill GI/Abdominal exam: PRESENT: normal bowel sounds, soft. ABSENT: distended, guarding, mass, organolmegaly, rebound, tenderness Rectal exam: PRESENT: deferred Extremities exam: PRESENT: full ROM. ABSENT: calf tenderness, clubbing, pedal edema Neurological exam: PRESENT: altered, oriented to person, oriented to place, oriented to time Psychiatric exam: ABSENT: homicidal ideation, suicidal ideation Skin exam: PRESENT: dry, intact, warm. ABSENT: cyanosis, rash Results Laboratory Results: 10/04/18 09:08 10/04/18 09:08 10/04/18 10/04/18 10/04/18 09:08 09:08 09:57 WBC 5.7 RBC 4.31 Hgb 10.4 L Hct 32.3 L MCV 75 L MCH 24.1 L MCHC 32.1 RDW 17.0 H Plt Count 207 Seg Neutrophils % 54.6 Lymphocytes % 38.2 Monocytes % 6.1 Eosinophils % 0.2 Basophils % 0.9 Absolute Neutrophils 3.1 Absolute Lymphocytes 2.2 Absolute Monocytes 0.3 Absolute Eosinophils 0.0 Absolute Basophils 0.1 Sodium 132.8 L Potassium 2.9 L* Chloride 95 L Carbon Dioxide 24 Anion Gap 14 BUN 12 Creatinine 0.59 Est GFR ( Amer) > 60 Est GFR (Non-Af Amer) > 60 Glucose 249 H Calcium 8.7 Total Bilirubin 3.2 H AST 79 H ALT 76 H Alkaline Phosphatase 202 H Total Protein 7.1 Albumin 3.3 L Lipase 136.7 Urine Color YELLOW Urine Appearance CLEAR Urine pH 6.0 Ur Specific [place] 1.005 Urine Protein 100 H Urine Glucose (UA) NEGATIVE Urine Ketones NEGATIVE Urine Blood SMALL H Urine Nitrite NEGATIVE Ur Leukocyte Esterase NEGATIVE Urine WBC (Auto) 1 10/04/18 10/04/18 09:08 09:08 Creatine Kinase 70 Troponin I 0.069 Impressions: Acute Abdomen Series 10/04/18 10:27 IMPRESSION: 1. No acute pulmonary findings. Cardiomegaly, no evidence for failure. 2. A few nonspecific air-fluid levels on the upright image. Abdomen MRI 10/04/18 11:05 IMPRESSION: Post cholecystectomy. No common bile duct stones. No intrahepatic biliary ductal dilatation Trace right subphrenic fluid, trace right pleural effusion with minimal right basilar atelectasis. Assessment and Plan - Diagnosis (1) Hypertensive emergency without congestive heart failure Is this a current diagnosis for this admission?: Yes Plan: Given the patient's nausea vomiting and mental status changes I am concerned for PRES syndrome. Will obtain MRI as the patient does have a previous history of CVA. Will seek to lower the patient's blood pressures judiciously given that the patient has been hypertensive for so long. Will start with Procardia for now as well as lisinopril dose the patient should be on at home. Given the patient's history of cerebrovascular disease I am very hesitant to start the patient on a drip that may lower her blood pressure significantly given that she may need this perfusion. Should the patient be ruled out for CVA will consider transitioning over to drip. (2) Elevated liver function tests Is this a current diagnosis for this admission?: Yes Plan: The patient is recent status post cholecystectomy. The patient's LFTs were normal at this time. Patient has had a ERCP today that was unremarkable. Multiple differentials do exist we will go ahead and get a upper quadrant ultrasound. If this persists will consider HIDA scan. (3) Nausea and vomiting Qualifiers: Vomiting type: unspecified Vomiting Intractability: non-intractable Qualified Code(s): R11.2 - Nausea with vomiting, unspecified Is this a current diagnosis for this admission?: Yes Plan: Possibly tied to the above. Patient appears to have symptom control with antiemetics at this time. May possibly be related to the patient's hypertension will follow. (4) Hypokalemia Is this a current diagnosis for this admission?: Yes Plan: Has been repleted. Will repeat chemistries and follow (5) Coronary artery disease Qualifiers: Coronary Disease-Associated Artery/Lesion type: [place] artery [place] vs. transplanted heart: [place] heart Associated angina: angina presence unspecified Qualified Code(s): I25.10 - Atherosclerotic heart disease of [place] coronary artery without angina pectoris Is this a current diagnosis for this admission?: Yes Plan: Apparently the patient has a stent. Certainly she should be on dual antico agulation therapy or not. Go ahead and start aspirin and research. (6) Diabetes mellitus type 2 in obese Is this a current diagnosis for this admission?: Yes Plan: Will start patient on sliding scale coverage. May benefit from metformin. (7) Cerebrovascular disease Is this a current diagnosis for this admission?: Yes Plan: Start the patient on a baby aspirin. Hold off on a statin for now until the patient's LFTs have normalized. (8) Chronic combined systolic and diastolic congestive heart failure Is this a current diagnosis for this admission?: Yes Plan: Appears compensated at this time. Will restart VI inhibitor and add other agents as the patient stabilizes. (9) Obesity Qualifiers: Obesity type: due to excess calories Body mass index: BMI 36.0-36.9 Is this a current diagnosis for this admission?: Yes Plan: Will encourage weight reduction (10) DVT prophylaxis Is this a current diagnosis for this admission?: Yes (11) Noncompliance with medication regimen Is this a current diagnosis for this admission?: Yes - Time Time Spent with patient: 35 or more minutes Smoking Cessation Education: 3 to 10 minutes Anticipated discharge: Home Within: within 48 hours Disposition: The patient is a full code. Pending patient's symptomatology and diagnostic findings will reevaluate in the a.m. - Inpatient Certification Based on my medical assessment, after consideration of the patient's comorbidities, presenting symptoms, or acuity I expect that the services needed warrant INPATIENT care.: Yes I certify that my determination is in accordance with my understanding of Medicare's requirements for reasonable and necessary INPATIENT services [42 CFR 412.3e].: Yes Medical Necessity: Need Close Monitoring Due to Risk of Patient Decompensation, Need For Continuous Telemetry Monitoring, Need for Neurological Checks Post Hospital Care: D/C or Transfer Summary
[2018-10-04] MEDS: NIFEDIPINE 30 MG TAB.ER.24 PO SCH (18:21)
[2018-10-04 19:23] LABS: ANION GAP 7 (5-19); BLOOD UREA NITROGEN 11 mg/dL (7-20); CALCIUM 8.9 mg/dL (8.4-10.2); CARBON DIOXIDE 27 mmol/L (22-30); CHLORIDE 100 mmol/L (98-107); GLUCOSE 237 mg/dL (75-110); POTASSIUM 3.3 mmol/L (3.6-5.0); SODIUM 134.1 mmol/L (137-145)
[2018-10-04 19:28] LABS: URINE AMPHETAMINES SCREEN NEGATIVE; URINE BARBITURATES SCREEN NEGATIVE; URINE BENZODIAZEPINES SCREEN NEGATIVE; URINE COCAINE SCREEN NEGATIVE; URINE MARIJUANA (THC) SCREEN NEGATIVE; URINE METHADONE SCREEN NEGATIVE; URINE PHENCYCLIDINE SCREEN NEGATIVE
[2018-10-04] MEDS: INSULIN LISPRO 100 UNIT/ML 3 ML VIAL SUBCUT SCH ×2 (19:28→22:44)
--- NOTE | 2018-10-04 20:49 | EKG REPORT ---
SEVERITY:- ABNORMAL ECG - SINUS RHYTHM ABNORMAL T, CONSIDER ISCHEMIA, LATERAL LEADS : Confirmed by: Virgil Webb 04-Oct-2018 20:47:38
[2018-10-04] MEDS ORDERED: INSULIN LISPRO 100 UNIT/ML 3 ML VIAL SUBCUT SCH (22:00)
--- NOTE | 2018-10-04 22:09 | RADIOLOGY REPORT (SQ) ---
MR BRAIN WITHOUT IV CONTRAST EXAM DATE: 10/03/2018 22:00 HISTORY: Altered mental status. COMPARISON: CT head dated 09/03/2018. TECHNIQUE: Multisequence, multiplanar MR imaging of the brain was performed without the administration of intravenous gadolinium. FINDINGS: There are multiple small areas of restricted diffusion in the right medial temporal lobe, consistent with acute lacunar infarction. There are also old areas of infarction involving the right posterior frontal cortex and left insular region. Mild scattered areas of T2/FLAIR hyperintense foci are seen in the supratentorial white matter, likely representing chronic microvascular ischemia. There is no intracranial hemorrhage, extra-axial fluid collection, or mass. The brainstem, posterior fossa, and cervicomedullary junction are preserved. The intravascular flow voids are preserved. The orbits are unremarkable. No abnormality of the skull base or calvarium is seen. IMPRESSION: 1. Multiple small acute lacunar infarctions in the region of the right medial temporal lobe. 2. Old bilateral frontal infarcts. 3. Mild chronic microvascular ischemic disease.
[2018-10-04] MEDS: LISINOPRIL 10 MG TABLET PO SCH (22:44)
[2018-10-04] MEDS: HEPARIN SOD (PORCINE) 5,000 UNIT/ML 1 ML SYRINGE SUBCUT SCH (22:44)
[2018-10-05] MEDS: HEPARIN SOD (PORCINE) 5,000 UNIT/ML 1 ML SYRINGE SUBCUT SCH ×2 (05:15→15:29)
[2018-10-05] MEDS: NIFEDIPINE 30 MG TAB.ER.24 PO SCH ×2 (05:16→17:15)
[2018-10-05 05:50] LABS: HEMATOCRIT 33.3 % (36.0-47.0); HEMOGLOBIN 10.8 g/dL (12.0-15.5); MEAN CORPUSCULAR HEMOGLOBIN 24.1 pg (27.0-33.4); MEAN CORPUSCULAR HGB CONC 32.4 g/dL (32.0-36.0); MEAN CORPUSCULAR VOLUME 74 fl (80-97); PLATELET COUNT 201 10^3/uL (150-450); RED BLOOD COUNT 4.48 10^6/uL (3.72-5.28); RED CELL DISTRIBUTION WIDTH 16.6 % (11.5-14.0); WHITE BLOOD COUNT 5.6 10^3/uL (4.0-10.5)
[2018-10-05 06:13] LABS: ALANINE AMINOTRANSFERASE 51 U/L (9-52); ALBUMIN 2.9 g/dL (3.5-5.0); ALKALINE PHOSPHATASE 158 U/L (38-126); ANION GAP 12 (5-19); ASPARTATE AMINO TRANSFERASE 53 U/L (14-36); BILIRUBIN,DIRECT 1.5 mg/dL (0.0-0.4); BILIRUBIN,TOTAL 2.3 mg/dL (0.2-1.3); BLOOD UREA NITROGEN 14 mg/dL (7-20); CALCIUM 8.2 mg/dL (8.4-10.2); CARBON DIOXIDE 22 mmol/L (22-30); CHLORIDE 101 mmol/L (98-107); CHOLESTEROL 146.92 mg/dL (0-200); GLUCOSE 160 mg/dL (75-110); POTASSIUM 3.1 mmol/L (3.6-5.0); SODIUM 134.8 mmol/L (137-145); TRIGLYCERIDES 79 mg/dL (<150)
[2018-10-05 06:24] LABS: DIRECT LDL 107 mg/dL (<100)
[2018-10-05] MEDS: INSULIN LISPRO 100 UNIT/ML 3 ML VIAL SUBCUT SCH ×3 (08:16→18:30)
--- NOTE | 2018-10-05 08:28 | RADIOLOGY REPORT (SQ) ---
EXAM DESCRIPTION: U/S ABDOMEN LIMITED W/O DOP COMPLETED DATE/TIME: 10/04/2018 7:19 pm REASON FOR STUDY: Elevated LFTs COMPARISON: MRI abdomen 10/04/2018, 08/26/2018 CT abdomen pelvis 09/03/2018, 08/22/2018 Abdominal ultrasound 08/25/2018 TECHNIQUE: Dynamic and static grayscale images acquired of the abdomen and recorded on PACS. Additio nal selected color Doppler and spectral images recorded. LIMITATIONS: Obese patient, midline bowel gas FINDINGS: PANCREAS: Midline pancreas unremarkable LIVER: No masses. Echotexture normal. LIVER VASCULATURE: Normal directional flow of the main portal vein and hepatic veins. Pulsatile flow GALLBLADDER: Surgically absent ULTRASOUND-DETECTED ALMAZAN'S SIGN: Not applicable INTRAHEPATIC DUCTS AND COMMON DUCT: CBD and intrahepatic ducts normal caliber. No filling defects. INFERIOR VENA CAVA: Normal flow. AORTA: Not well seen RIGHT KIDNEY: Normal size. Normal echogenicity. No solid or suspicious masses. No hydronephrosis. No calcifications. PERITONEAL AND RIGHT PLEURAL SPACE: Trace right upper quadrant free fluid OTHER: No other significant findings. IMPRESSION: No biliary ductal dilatation. No portal vein or hepatic vein thrombosis TECHNICAL DOCUMENTATION: JOB ID: [id number] [employer]- All Rights Reserved Reading location - IP/workstation name: [email or web address]
[2018-10-05] MEDS ORDERED: ASPIRIN 81 MG TABLET, CHEWABLE PO SCH (10:00)
[2018-10-05] MEDS: LISINOPRIL 10 MG TABLET PO SCH (10:12)
[2018-10-05 16:43] VITALS: BP 124/77
--- NOTE | 2018-10-06 22:08 | PDOC DISCHARGE SUMMARY ---
General - Admit/Disc Date/PCP Admission Date/Primary Care Provider: 10/04/18 15:36 Discharge Date: 10/05/18 - Discharge Diagnosis (1) Acute CVA (cerebrovascular accident) Is this a current diagnosis for this admission?: Yes Summary: Acute, right side, lacunar infarct in setting of previous CVA. MRI (10/04/18) shows multiple small acute lacunar infarcts in the region of the right medial temporal lobe, old bilateral frontal infarcts, and mild chronic microvascular ischemic disease. Echocardiogram (08/25/18) reveals LVEF 40%, diastolic function could not be assessed, mild to moderate tricuspid regurgitation but otherwise no valvular disease, and severe pulmonary hypertension. Carotid doppler (04/2017) was negative for hemodynamically significant stenosis. It is highly unlikely that significant stenosis has developed in the 18 month interim. MRI/MRA (04/2017) demonstrated abnormal anterior perisylvian M2 branch of left MCA with tandem high-grade stenosis and vessel irregularity worrisome for [employer]ANT vasculitis. Per d/c Summary of the previous visit; Dr. Johnson (neurology) was contacted for guidance. It was felt the patient more likely has intracranial arthrosclerosis. Lipid panel shows LDL 107, HDL 24, Trig 79, TChol 146 A1c (07/2018) >14% The patient was admitted to [facility] on continuous telemetry; she has remained in NSR. Evaluation for CVA is as above. She was not on aspirin therapy prior to her CVA in 2016. She was discharged on combination ASA and Plavix at that time; patient admits that she did not take medications due to financial barriers. Therefore, she has not fail dual antiplatelet therapy and there is no indication for chronic anticoagulation at this time. She is educated that ASA is available OTC and should be continued regardless of ability to fill prescriptions. The [facility] Transitions of Care program is consulted and have been able to provide patient with low cost medication/medication assistance. She is discharged on ASA, Plavix, and statin therapy; antihypertensives and diabetic regiment as outlined below. Dr. Johnson's office was contacted; demographic and recent imaging results were provided. They will still be able to see the patient and will contact her shortly to arrange for the appointment. Patient is strongly advised of the importance of medication compliance and establishing with health care providers (PCP, neurology, and cardiology services are all indicated). The patient was evaluated by PT/OT/ST services; all have signed off as the patient has no need for continued therapy services. At time of discharge, the patient is in stable condition and asymptomatic. She is advised to follow up with the [facility], Dr. Johnson (neurology), and Dr. Alexandre (cardiology). She is instructed to return to the emergency department as needed for any concerning symptoms. (2) Chronic combined systolic and diastolic congestive heart failure Is this a current diagnosis for this admission?: Yes Summary: Stable and without exacerbation at this time. She is discharged on lisinopril, amlodipin, HCTZ, ASA, Plavix, and statin therapy. She is encouraged to eat a low sodium diet and to weigh herself daily. She is advised of the importance of following up with a PCP and establishing with a group worker for continued management of her CHF. (3) Coronary artery disease Is this a current diagnosis for this admission?: Yes Summary: Patient is discharged on dual ASA and Plavix therapy. She is discharged on statin therapy. (4) Diabetes mellitus type 2 in obese Is this a current diagnosis for this admission?: Yes Summary: A1c >14% in Jul 2018. She was placed on a diabetic diet and provided SSI coverage. She was provided the oportunities to meet with the dialysis registered nurse and top icer but declined. At discharge, she is provided prescriptions for Lantus (1 month free can be provided by [facility] through their Transitions of Care program) and Novolin R for sliding scale. She is advised of the importance of establishing with a PCP for continued management. (5) Elevated liver function tests Is this a current diagnosis for this admission?: Yes Summary: Patient was noted to have elevated LFTs on admission which have trended down. She is ~1 month s/p cholecystectomy and LFTs were nml at that time. ERCP was normal. U/S ABD was unremarkable. Recommend follow up LFTs at primary care appointment and consideration of outpatient GI follow up. Advised patient to avoid EtOH and minimize OTC tylenol use. (6) Hypertensive emergency without congestive heart failure Is this a current diagnosis for this admission?: Yes Summary: Resolved with initiation of procardia, HCTZ and resumption of home dose lisinopril. At discharge, the patient was prescribed lisinopril, HCTZ and Amlodipine (patient is self pay and unable to afford Procardia). She is instructed on the importance of a low sodium diet, medication compliance, and tobacco cessation. (7) Hypokalemia Is this a current diagnosis for this admission?: Yes Summary: Resolved. (8) Nausea and vomiting Is this a current diagnosis for this admission?: Yes Summary: Resolved; patient denies episodes of nausea/vomiting since time of admission. Likely multifactorial r/t dietary noncompliance s/p cholecystectomy, hypertensive urgency, hyperglycemia, and possibly the development of acute lacunar infarcts to the right temporal region. (9) Noncompliance with medication regimen Is this a current diagnosis for this admission?: Yes Summary: Discharge planning and patient navigator were consulted. [facility] pharmacy was consulted for the Transitions of Care program. (10) Obesity Is this a current diagnosis for this admission?: Yes Summary: Dietary discretion and lifestyle modifications were encouraged. (11) DVT prophylaxis Is this a current diagnosis for this admission?: Yes Summary: Heparin for DVT ppx (12) Cerebrovascular disease Is this a current diagnosis for this admission?: Yes Summary: Hx of previous CVA. She was provided ASA, Plavix, and statin therapy. She was encouraged to follow up with Dr. Johnson ([facility]) at that time but did not keep her appointment. Dr. Johnson's office was contacted; demographic and recent imaging results were provided. They will still be able to see the patient and will contact her shortly to arrange for the appointment. Patient is strongly advised of the importance of medication compliance and establishing with health care providers (PCP, neurology, and cardiology services are all indicated). - Additional Information Resuscitation Status: Full Code Discharge Diet: Cardiac, Diabetic Discharge Activity: Activity As Tolerated, Balance Activity w/Rest Prescriptions: Amlodipine Besylate [Norvasc 10 mg Tablet] 10 mg PO DAILY #30 tablet Aspirin [Aspirin 81 mg Chewable Tablet] 81 mg PO DAILY #30 tab.chew Atorvastatin Calcium [Lipitor 40 mg Tablet] 40 mg PO QHS #30 tablet Clopidogrel Bisulfate [Plavix 75 mg Tablet] 75 mg PO DAILY #30 tablet Hydrochlorothiazide [Hydrodiuril 12.5 mg Tablet] 12.5 mg PO QAM #30 capsule Insulin Glargine,Hum.rec.anlog [Lantus Insulin 100 Unit/1 ml 10 ml] 10 unit SUBCUT QHS #1 vial Insulin Regular, Human [Novolin R (Reg) Insulin 100 unit/mL] 0 unit SUBCUT .SLD SCALE #10 ml Lisinopril [Prinivil 40 mg Tablet] 40 mg PO DAILY #30 tablet Syringe W-Ndl, Disp., Insulin [Insulin Syringe] 1 syr MC ASDIR PRN #100 syringe PRN Reason: Home Medications: Acetaminophen [Tylenol 325 mg Tablet] 650 mg PO Q4HP PRN tablet 10/05/18 Amlodipine Besylate [Norvasc 10 mg Tablet] 10 mg PO DAILY #30 tablet 10/05/18 Aspirin [Aspirin 81 mg Chewable Tablet] 81 mg PO DAILY #30 tab.chew 10/05/18 Atorvastatin Calcium [Lipitor 40 mg Tablet] 40 mg PO QHS #30 tablet 10/05/18 Clopidogrel Bisulfate [Plavix 75 mg Tablet] 75 mg PO DAILY #30 tablet 10/05/18 Hydrochlorothiazide [Hydrodiuril 12.5 mg Tablet] 12.5 mg PO QAM #30 capsule 10/05/18 Insulin Glargine,Hum.rec.anlog [Lantus Insulin 100 Unit/1 ml 10 ml] 10 unit SUBCUT QHS #1 vial 10/05/18 Insulin Regular, Human [Novolin R (Reg) Insulin 100 unit/mL] 0 unit SUBCUT .SLD SCALE #10 ml 10/05/18 Lisinopril [Prinivil 40 mg Tablet] 40 mg PO DAILY #30 tablet 10/05/18 Syringe W-Ndl, Disp., Insulin [Insulin Syringe] 1 syr MC ASDIR PRN #100 syringe 10/05/18 History of Present Illness History of Present Illness: Per H&P by Dr. Cyril Sheridan: PHILLIP DORANTES is a 48 year old female with past medical history of CAD, CHF, HTN, HLD, type 2 diabetes and a history of AR that presented to the emergency department complaining of vomiting onset 5 weeks ago. Patient states she had a cholecystectomy on August 27, 2018 and has been vomiting intermittently since that time. The patient does not appear to have any significant weight loss as her previous admission.She states she has not seen a provider since she has been in the emergency department on September 03, 2018 complaining of vomiting. Patient also complains of decreased bowel movements further stating she has not had a bowel movement in 2 weeks. Patient is not currently taking any medications. Vomiting has not happen at any particular time a day. It is not necessarily related to eating. MRCP in the emergency department was found to be unremarkable. The patient denies fevers. The patient was found to be significantly hypertensive. This is been present in the past as the patient does also have a history of cerebrovascular accident. The patient does admit to not taking any medications signing her lack of insurance. Upon my evaluation the patient was found to be a little groggy the patient did not appear to have taken any medications that should alter her this significantly. The patient's history of persistent hypertension, history of CVA will proceed with MRI. Physical Exam Vital Signs: Temp Pulse Resp BP Pulse Ox 98.2 F 91 18 118/75 98 10/05/18 16:14 10/05/18 16:14 10/05/18 16:14 10/05/18 16:14 10/05/18 16:14 Intake & Output 10/04/18 10/05/18 10/06/18 06:59 06:59 06:59 Intake Total 787 875 Output Total 250 Balance 537 875 Weight 90.5 kg 90.5 kg General appearance: PRESENT: no acute distress, obese, well-developed, well- nourished Head exam: PRESENT: atraumatic, normocephalic Eye exam: PRESENT: conjunctiva pink, EOMI, PERRLA. ABSENT: scleral icterus Ear exam: PRESENT: normal external ear exam Mouth exam: PRESENT: moist, tongue midline Neck exam: ABSENT: carotid bruit, JVD, lymphadenopathy, thyromegaly Respiratory exam: PRESENT: clear to auscultation ac. ABSENT: rales, rhonchi, wheezes Cardiovascular exam: PRESENT: RRR. ABSENT: diastolic murmur, rubs, systolic murmur Pulses: PRESENT: normal dorsalis pedis pul Vascular exam: PRESENT: normal capillary refill GI/Abdominal exam: PRESENT: normal bowel sounds, soft. ABSENT: distended, guarding, mass, organolmegaly, rebound, tenderness Rectal exam: PRESENT: deferred Extremities exam: PRESENT: full ROM. ABSENT: calf tenderness, clubbing, pedal edema Neurological exam: PRESENT: alert, awake, oriented to person, oriented to place, oriented to time, oriented to situation, CN II-XII grossly intact. ABSENT: motor sensory deficit Psychiatric exam: PRESENT: appropriate affect, normal mood. ABSENT: homicidal ideation, suicidal ideation Skin exam: PRESENT: dry, intact, warm. ABSENT: cyanosis, rash Results Laboratory Results: 10/05/18 04:13 10/05/18 04:13 10/05/18 10/05/18 04:13 04:13 WBC 5.6 RBC 4.48 Hgb 10.8 L Hct 33.3 L MCV 74 L MCH 24.1 L MCHC 32.4 RDW 16.6 H Plt Count 201 Sodium 134.8 L Potassium 3.1 L Chloride 101 Carbon Dioxide 22 Anion Gap 12 BUN 14 Creatinine 0.81 Est GFR ( Amer) > 60 Est GFR (Non-Af Amer) > 60 Glucose 160 H Calcium 8.2 L Magnesium 1.6 Total Bilirubin 2.3 H AST 53 H ALT 51 Alkaline Phosphatase 158 H Total Protein 6.0 L Albumin 2.9 L Triglycerides 79 Cholesterol 146.92 LDL Cholesterol Direct 107 H VLDL Cholesterol 16.0 HDL Cholesterol 24 L 10/04/18 10/04/18 09:08 09:08 Creatine Kinase 70 Troponin I 0.069 Impressions: Abdomen Ultrasound 10/04/18 00:00 IMPRESSION: No biliary ductal dilatation. No portal vein or hepatic vein thrombosis Head MRI 10/04/18 00:00 IMPRESSION: 1. Multiple small acute lacunar infarctions in the region of the right medial temporal lobe. 2. Old bilateral frontal infarcts. 3. Mild chronic microvascular ischemic disease. Acute Abdomen Series 10/04/18 10:27 IMPRESSION: 1. No acute pulmonary findings. Cardiomegaly, no evidence for failure. 2. A few nonspecific air-fluid levels on the upright image. Abdomen MRI 10/04/18 11:05 IMPRESSION: Post cholecystectomy. No common bile duct stones. No intrahepatic biliary ductal dilatation Trace right subphrenic fluid, trace right pleural effusion with minimal right basilar atelectasis. Qualifiers - * PATIENT BEING DISCHARGED WITH ANY OF THE FOLLOWING DIAGNOSIS: Stroke Stroke Pt being discharged on Anti-thrombolytic therapy?: Yes Stroke Pt being discharged on Anti-coagulation therapy?: No Reason(s) for not prescribing Anti-coagulation therapy:: Not indicated Stroke Pt being discharged on Statins?: Yes Plan Discharge Plan: Discharge to home with self care. [facility] to [facility]. Recommend repeat LFTs at visit. Patient may benefit from outpatient GI follow up. Patient will be contacted by [facility] to schedule a follow up with Dr. Johnson (neurology). Patient would benefit from establishing with group worker. Patient has been connected with the [employer] pharmacy assistance program; will receive blister pack of medications. She is advised of the importance of taking medications as prescribed and following up with a PCP as soon as possible to ensure there is no lapse in her medical care. She is instructed to return to the emergency department as needed for concerning symptoms. Time Spent: Greater than 30 Minutes
== END 2018-10-05 18:59 | disposition home or self-care (01) | DRG 65 ==
LOC: ER 08:16 → EH 15:36 → 3N 17:48
PROVIDERS: ADMIT Hospitalist; ATTEND Hospitalist
DX: I63.81 Other cerebral infarction due to occlusion or stenosis of small artery (principal); I16.1 Hypertensive emergency; I50.42 Chronic combined systolic (congestive) and diastolic (congestive) heart failure; I11.0 Hypertensive heart disease with heart failure; I25.10 Atherosclerotic heart disease of native coronary artery without angina pectoris; E11.9 Type 2 diabetes mellitus without complications; E66.9 Obesity, unspecified; E87.6 Hypokalemia; E78.5 Hyperlipidemia, unspecified; R79.89 Other specified abnormal findings of blood chemistry; Z68.36 Body mass index [BMI] 36.0-36.9, adult; I25.2 Old myocardial infarction; Z95.5 Presence of coronary angioplasty implant and graft; Z59.9 Problem related to housing and economic circumstances, unspecified; Z90.49 Acquired absence of other specified parts of digestive tract; Z91.14 Patient's other noncompliance with medication regimen; Z86.73 Personal history of transient ischemic attack (TIA), and cerebral infarction without residual deficits; Z79.02 Long term (current) use of antithrombotics/antiplatelets; Z79.82 Long term (current) use of aspirin; Z79.4 Long term (current) use of insulin; Z79.899 Other long term (current) drug therapy
CPT/HCPCS: 36415; 70551; 74022; 74181; 76705; 80048; 80053; 80061; 80307; 81001; 82140; 82550; 82607; 82962; 83690; 83735; 84484; 85025; 85027; 93005; 93010; 96374; 96375; 96376; 99291; J0360; J1644; J1815; J2405; J3490; S0028

== ENCOUNTER 2018-11-25 18:12 | Emergency (ER) | payer OTHER ==
[2018-11-25] MEDS ORDERED: LISINOPRIL 10 MG TABLET PO ONE (18:36)
[2018-11-25] MEDS ORDERED: AMLODIPINE BESYLATE 10 MG TABLET PO ONE (18:36)
--- NOTE | 2018-11-25 18:39 | ER Document Report ---
ED Medical Screen (RME) - General Chief Complaint: Headache Stated Complaint: HEADACHE TRAVEL OUTSIDE OF THE [place] IN LAST 30 DAYS: No - HPI Notes: 11/25/18 18:36 Patient is a 48-year-old female with a history of CVA, CAD, CHF, HTN, HLD, type 2 diabetes and a history of ID who presents complaining of intermittent headache over the past month and elevated blood pressure. Patient was seen in September here in the emergency department and admitted where she was found to have an acute CVA at that time. She was not on any blood pressure pills, but was discharged with several. Patient states that she did not take any of her blood pressure medicines today. She is currently on lisinopril, amlodipine, and HCTZ. She has no light sensitivity. This is not the worst headache of her life and did not reach maximal intensity immediately. She is eating and drinking without difficulties. She is urinating normally and having normal bowel movements. She has not noticed any focal or unilateral weakness. Denies drug allergies. Den ies fever, neck pain, URI, CP, SOB, Abd pain, dysuria, back pain, dysuria, or rash. I have treated and performed a rapid initial assessment of this patient. A comprehensive ED assessment and evaluation of the patient, analysis of test results and completion of medical decision making process will be conducted by additional ED providers. PHYSICAL EXAMINATION: GENERAL: Well-appearing, well-nourished and in no acute distress. A&Ox4. Answers questions appropriately. Eyes: PERRLA, EOMI b/l. no nystagmus. LUNGS: Breath sounds clear to auscultation bilaterally and equal. No wheezes rales or rhonchi. HEART: Regular rate and rhythm without murmurs, rubs, gallops. Extremities: No cyanosis, clubbing, or edema b/l. MS: Strength 5+/5 b/l extremities. NEUROLOGICAL: Normal speech, normal gait. NIH 0. Cranial nerves grossly intact. PSYCH: Normal mood, normal affect. - Related Data Allergies/Adverse Reactions: No Known Allergies Allergy (Verified 11/25/18 18:21) Past Medical History - Social History Frequency of alcohol use: None Drug Abuse: None - Past Medical History Cardiac Medical History: Reports: Hx Congestive Heart Failure, Hx Coronary Artery Disease, Hx Heart Attack, Hx Hypercholesterolemia, Hx Hypertension, Hx Heart Murmur Pulmonary Medical History: Denies: Hx Asthma, Hx COPD Neurological Medical History: Denies: Hx Seizures Endocrine Medical History: Reports: Hx Diabetes Mellitus Type 1, Hx Diabetes Mellitus Type 2. Denies: Hx Hyperthyroidism, Hx Hypothyroidism Renal/ Medical History: Denies: Hx Peritoneal Dialysis GI Medical History: Denies: Hx Cirrhosis, Hx Hepatitis Musculoskeltal Medical History: Denies Hx Arthritis, Denies Hx Gout Skin Medical History: Denies Hx Eczema, Denies Hx Psoriasis Psychiatric Medical History: Denies: Hx Depression Infectious Medical History: Denies: Hx Hepatitis Past Surgical History: Reports: Hx Cardiac Catheterization, Hx Cholecystectomy, Hx Coronary Stent - Immunizations Hx Diphtheria, Pertussis, Tetanus Vaccination: Yes History of Influenza Vaccine for 03/2017 - 08/2017 Season: No Physical Exam - Vital signs Vitals: Temp Pulse Resp BP Pulse Ox 98.2 F 111 H 16 191/116 H 97 11/25/18 18:24 11/25/18 18:24 11/25/18 18:24 11/25/18 18:24 11/25/18 18:24 Course - Vital Signs Vital signs: Temp Pulse Resp BP Pulse Ox 98.2 F 111 H 16 191/116 H 97 11/25/18 18:24 11/25/18 18:24 11/25/18 18:24 11/25/18 18:24 11/25/18 18:24
[2018-11-25 19:10] LABS: ABSOLUTE BASOPHILS # (AUTO) 0.1 10^3/uL (0.0-0.2); ABSOLUTE LYMPHOCYTES (AUTO) 2.4 10^3/uL (0.5-4.7); ABSOLUTE MONOCYTES (AUTO) 0.4 10^3/uL (0.1-1.4); ABSOLUTE NEUT (AUTO) 4.9 10^3/uL (1.7-8.2); EOSINOPHILS % (AUTO) 0.5 % (0-6); HEMATOCRIT 31.2 % (36.0-47.0); HEMOGLOBIN 9.8 g/dL (12.0-15.5); LYMPHOCYTES % (AUTO) 30.7 % (13-45); MEAN CORPUSCULAR HEMOGLOBIN 23.3 pg (27.0-33.4); MEAN CORPUSCULAR HGB CONC 31.3 g/dL (32.0-36.0); MEAN CORPUSCULAR VOLUME 74 fl (80-97); MONOCYTES % (AUTO) 5.1 % (3-13); PLATELET COUNT 289 10^3/uL (150-450); RED CELL DISTRIBUTION WIDTH 20.4 % (11.5-14.0); SEGMENTED NEUTROPHILS % (AUTO) 62.7 % (42-78); TOTAL CELLS COUNTED % (AUTO) 100 %; WHITE BLOOD COUNT 7.8 10^3/uL (4.0-10.5)
--- NOTE | 2018-11-25 19:19 | RADIOLOGY REPORT (SQ) ---
EXAM DESCRIPTION: CT HEAD WITHOUT COMPLETED DATE/TIME: 11/25/2018 7:02 pm REASON FOR STUDY: CORONEL, elevated BP, recent CVA COMPARISON: None. TECHNIQUE: Axial images acquired through the brain without intravenous contrast. Images reviewed wi th bone, brain and subdural windows. Additional sagittal and coronal reconstructions were generated. Images stored on PACS. All CT scanners at this facility use dose modulation, iterative reconstruction, and/or weight based d osing when appropriate to reduce radiation dose to as low as reasonably achievable (ALARA). [facility]: Dose Right [facility]: CareDose [facility]: Dose Right [facility]: Teradose 4D [facility]: Smart SunnyBump RADIATION DOSE: CT Rad equipment meets quality standard of care and radiation dose reduction techniq ues were employed. CTDIvol: 53.2 mGy. DLP: 937 mGy-cm.mGy. LIMITATIONS: None. FINDINGS: VENTRICLES: Prominent. CEREBRUM: No masses. No hemorrhage. No midline shift. Areas of low density in the white matter mos t likely due to chronic micro-vascular ischemic change. No evidence for acute infarction. CEREBELLUM: No masses. No hemorrhage. No alteration of density. No evidence for acute infarction. EXTRAAXIAL SPACES: Age-related involutional change. No fluid collections. No masses. ORBITS AND GLOBE: No intra- or extraconal masses. Normal contour of globe without masses. CALVARIUM: No fracture. PARANASAL SINUSES: No fluid or mucosal thickening. SOFT TISSUES: No mass or hematoma. OTHER: No other significant finding. IMPRESSION: CHRONIC CHANGES OF ATROPHY AND MICROVASCULAR ISCHEMIA. NO ACUTE PROCESS. EVIDENCE OF ACUTE STROKE: NO. TECHNICAL DOCUMENTATION: JOB ID: [id number] Quality ID # [id number]: Final reports with documentation of one or more dose reduction techniques (e.g., Au tomated exposure control, adjustment of the mA and/or kV according to patient size, use of iterative reconstruction technique) 2010 [employer]- All Rights Reserved Reading location - IP/workstation name: [email or web address]
[2018-11-25 19:27] LABS: ALANINE AMINOTRANSFERASE 26 U/L (9-52); ALBUMIN 3.6 g/dL (3.5-5.0); ALKALINE PHOSPHATASE 160 U/L (38-126); ANION GAP 13 (5-19); ASPARTATE AMINO TRANSFERASE 37 U/L (14-36); BILIRUBIN,DIRECT 2.3 mg/dL (0.0-0.4); BILIRUBIN,TOTAL 3.8 mg/dL (0.2-1.3); BLOOD UREA NITROGEN 10 mg/dL (7-20); CALCIUM 8.7 mg/dL (8.4-10.2); CARBON DIOXIDE 26 mmol/L (22-30); CHLORIDE 94 mmol/L (98-107); GLUCOSE 180 mg/dL (75-110); POTASSIUM 3.1 mmol/L (3.6-5.0); SODIUM 133.1 mmol/L (137-145); TOTAL PROTEIN 7.7 g/dL (6.3-8.2)
[2018-11-25] MEDS ORDERED: POTASSIUM CHLORIDE 10 MEQ CAPSULE.ER PO ONE (19:32)
--- NOTE | 2018-11-25 19:33 | ER Document Report ---
ED General - General Chief Complaint: Headache Stated Complaint: HEADACHE Time Seen by Provider: 11/25/18 18:39 Primary Care Provider: [facility] [NO LOCAL MD] - Follow up in 3-5 days Mode of Arrival: Ambulatory Information source: Patient, [facility] Records Notes: Patient is a 48-year-old female with a history of CVA, CAD, CHF, HTN, HLD, type 2 diabetes and a history of PR who presents complaining of intermittent headache over the past month persistent headache today. Patient reports an elevation in her blood pressure but reports that she has not taken any of her blood pressure medications today. Patient was seen in September here in the emergency department and admitted where she was found to have an acute CVA at that time. She was not on any blood pressure pills, but was discharged with several. She is currently on lisinopril, amlodipine, and HCTZ. She has no light sensitivity. This is not the worst headache of her life and did not reach maximal intensity immediately. She is eating and drinking without difficulties. She is urinating normally and having normal bowel movements. Denies drug allergies. Denies fever, neck pain, URI, CP, SOB, Abd pain, dysuria, back pain, dysuria, or rash. Prior to my exam patient received amlodipine, lisinopril and now reports complete resolution of her headache. Patient had residual left-sided weakness that she reports is not worse. She has had no visual changes, slurred speech or difficulty with ambulation. TRAVEL OUTSIDE OF THE [place] IN LAST 30 DAYS: No - HPI Onset: This afternoon Onset/Duration: Gradual, Persistent, Gone Quality of pain: Throbbing Severity: Mild Pain Level: 0 Associated symptoms: Headache. denies: Chest pain, Nonproductive cough, Productive cough, Fever, Nausea, Vomiting, Shortness of breath, Slow to respond Exacerbated by: Denies Relieved by: Denies Similar symptoms previously: Yes Recently seen / treated by doctor: No - Related Data Allergies/Adverse Reactions: No Known Allergies Allergy (Verified 11/25/18 18:21) Past Medical History - General Information source: Patient - Social History Smoking Status: Never Smoker Frequency of alcohol use: None Drug Abuse: None Lives with: Family Family History: Reviewed & Not Pertinent, Other Patient has suicidal ideation: No Patient has homicidal ideation: No - Past Medical History Cardiac Medical History: Reports: Hx Congestive Heart Failure, Hx Coronary Artery Disease, Hx Heart Attack, Hx Hypercholesterolemia, Hx Hypertension, Hx Heart Murmur Pulmonary Medical History: Denies: Hx Asthma, Hx COPD Neurological Medical History: Denies: Hx Seizures Endocrine Medical History: Reports: Hx Diabetes Mellitus Type 1, Hx Diabetes Mellitus Type 2. Denies: Hx Hyperthyroidism, Hx Hypothyroidism Renal/ Medical History: Denies: Hx Peritoneal Dialysis GI Medical History: Denies: Hx Cirrhosis, Hx Hepatitis Musculoskeletal Medical History: Denies Hx Arthritis, Denies Hx Gout Skin Medical History: Denies Hx Eczema, Denies Hx Psoriasis Psychiatric Medical History: Denies: Hx Depression Infectious Medical History: Denies: Hx Hepatitis Past Surgical History: Reports: Hx Cardiac Catheterization, Hx Cholecystectomy, Hx Coronary Stent - Immunizations Hx Diphtheria, Pertussis, Tetanus Vaccination: Yes Review of Systems - Review of Systems Notes: REVIEW OF SYSTEMS: CONSTITUTIONAL : Denies fever, chills, or sweats. Denies recent illness. Denies weight loss, recent hospitalizations. EENT: Denies visual changes, eye pain. Denies sore throat, oral lesions, difficulty swallowing. CARDIOVASCULAR: Denies chest pain. Denies palpitations. Denies lower extremity edema. RESPIRATORY: Denies cough. Denies shortness of breath, wheezing. GASTROINTESTINAL: Denies abdominal pain or distention. Denies nausea, vomiting, or diarrhea. Denies blood in vomitus, stools, or per rectum. Denies black, tarry stools. Denies constipation. GENITOURINARY: Denies difficulty urinating, painful urination, frequency, blood in urine, or vaginal discharge. MUSCULOSKELETAL: Denies back or neck pain or stiffness. Denies joint pain or swelling. SKIN: Denies rash, lesions or sores. HEMATOLOGIC : Denies easy bruising or bleeding. LYMPHATIC: Denies swollen glands. NEUROLOGICAL: Denies confusion or altered mental status. Denies loss of consciousness. Denies dizziness or lightheadedness. Denies weakness or paralysis. Denies problems difficulty with ambulation, slurred speech. Denies sensory loss, numbness, or tingling. Denies seizures. PSYCHIATRIC: Denies anxiety or stress. Denies depression, suicidal ideation, or homicidal ideation. Denies visual or auditory hallucinations. Physical Exam - Vital signs Vitals: Temp Pulse Resp BP Pulse Ox 98.2 F 111 H 16 191/116 H 97 11/25/18 18:24 11/25/18 18:24 11/25/18 18:24 11/25/18 18:24 11/25/18 18:24 - Notes Notes: PHYSICAL EXAMINATION: GENERAL: Well-appearing, well-nourished and in no acute distress. HEAD: Atraumatic, normocephalic. EYES: Pupils equal round and reactive to light, extraocular movements intact, conjunctiva are normal. ENT: Nares patent, oropharynx clear without exudates. Moist mucous membranes. NECK: Normal range of motion, supple without lymphadenopathy LUNGS: Breath sounds clear to auscultation bilaterally and equal. No wheezes rales or rhonchi. HEART: Regular rate and rhythm without murmurs ABDOMEN: Soft, nontender, nondistended abdomen. No guarding, no rebound. No masses appreciated. Female : deferred Musculoskeletal: Normal range of motion, no pitting or edema. No cyanosis. NEUROLOGICAL: Cranial nerves grossly intact. Normal speech, normal gait. Normal sensory, motor exams. Left-sided strength 3/5 PSYCH: Normal mood, normal affect. SKIN: Warm, Dry, normal turgor, no rashes or lesions noted. Course - Re-evaluation Re-evalutation: 11/25/18 19:32 Laboratory 11/25/18 11/25/18 18:50 18:50 WBC 7.8 RBC 4.20 Hgb 9.8 L Hct 31.2 L MCV 74 L MCH 23.3 L MCHC 31.3 L RDW 20.4 H Plt Count 289 Seg Neutrophils % 62.7 Lymphocytes % 30.7 Monocytes % 5.1 Eosinophils % 0.5 Basophils % 1.0 Absolute Neutrophils 4.9 Absolute Lymphocytes 2.4 Absolute Monocytes 0.4 Absolute Eosinophils 0.0 Absolute Basophils 0.1 Sodium 133.1 L Potassium 3.1 L Chloride 94 L Carbon Dioxide 26 Anion Gap 13 BUN 10 Creatinine 0.63 Est GFR ( Amer) > 60 Est GFR (Non-Af Amer) > 60 Glucose 180 H Calcium 8.7 Total Bilirubin 3.8 H Direct Bilirubin 2.3 H Neonat Total Bilirubin Not Reportable Neonat Direct Bilirubin Not Reportable Neonat Indirect Bili Not Reportable AST 37 H ALT 26 Alkaline Phosphatase 160 H Total Protein 7.[address] 11/25/18 18:35 IMPRESSION: CHRONIC CHANGES OF ATROPHY AND MICROVASCULAR ISCHEMIA. NO ACUTE PROCESS. EVIDENCE OF ACUTE STROKE: NO. Head MRI 11/25/18 19:20 IMPRESSION: 1. No acute infarct or other acute intracranial findings. 2. Chronic ischemic changes with old infarcts as seen on prior exam. Temp Pulse Resp BP Pulse Ox 98.7 F 111 H 27 H 169/94 H 97 11/25/18 22:18 11/25/18 18:24 11/25/18 22:01 11/25/18 22:01 11/25/18 22:01 11/26/18 03:18 Patient is a 48-year-old female with a history of CVA, CAD, CHF, HTN, HLD, type 2 diabetes and a history of PR who presents complaining of intermittent headache over the past month persistent headache today. Patient reports an elevation in her blood pressure but reports that she has not taken any of her blood pressure medications today. Patient was seen in September here in the emergency department and admitted where she was found to have an acute CVA at that time. She was not on any blood pressure pills, but was discharged with several. She is currently on lisinopril, amlodipine, and HCTZ. She has no light sensitivity. This is not the worst headache of her life and did not reach maximal intensity immediately. She is eating and drinking without difficulties. Vital signs reviewed and patient is initially hypertensive. This resolved after receiving her home medications of amlodipine, lisinopril and additional Lopressor at hydralazine. Upon my exam patient is already headache free. NIH is 0. 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 CT of the head showed no evidence of hemorrhage. MRI showed no evidence of acute infarct. Social work consult was placed for primary care follow-up. Patient states that she does have her home medications. No significant findings on lab work. Discussed importance of compliance with her blood pressure medications. 11/26/18 03:19 Patient was evaluated and treated as appropriate for the patient's presenting symptoms and complaint, with consideration of any critical or life threatening conditions that may be associated with their obtained history and exam as noted above. All results were discussed with patient. Patient provided the opportunity to ask questions, and express concerns. Patient was educated on treatments based on their presumed diagnosis as noted above. At this time we will discharge the patient with return precautions and follow-up recommendations. Verbal discharge instructions given a the bedside. Medication warnings reviewed. Patient is in agreement with this plan and has verbalized understanding of return precautions. After careful consideration I feel that that patient can be safely discharged from the emergency department, they were advised to followup with a primary care physician in 2-3 days. Dictation on this chart was performed using voice recognition software and may result in unintended grammatical, spelling, syntax or errors. - Vital Signs Vital signs: Temp Pulse Resp BP Pulse Ox 98.7 F 111 H 27 H 169/94 H 97 11/25/18 22:18 11/25/18 18:24 11/25/18 22:01 11/25/18 22:01 11/25/18 22:01 - Laboratory Result Diagrams: 11/25/18 18:50 11/25/18 18:50 Laboratory results interpreted by me: 11/25/18 11/25/18 11/25/18 18:50 18:50 20:05 Hgb 9.8 L Hct 31.2 L MCV 74 L MCH 23.3 L MCHC 31.3 L RDW 20.4 H Sodium 133.1 L Potassium 3.1 L Chloride 94 L Glucose 180 H Total Bilirubin 3.8 H Direct Bilirubin 2.3 H AST 37 H Alkaline Phosphatase 160 H Urine Protein 100 H Urine Urobilinogen 4.0 H - Diagnostic Test Radiology reviewed: Image reviewed, Reports reviewed Discharge - Discharge Clinical Impression: Noncompliance with medication regimen, Poorly-controlled hypertension Headache Qualifiers: Headache type: unspecified Headache chronicity pattern: unspecified pattern In tractability: not intractable Qualified Code(s): R51 - Headache Condition: Good Disposition: HOME, SELF-CARE Instructions: Headache ([facility]) Additional Instructions: Regarding Blood Pressure: Your blood pressure was noted to be greater than 120/80 at least once in the emergency room today. It is recommended that you follow-up with her primary care physician in the next week for repeat blood pressure check. The Centers for Medicare and Medicaid Services has specific recommendations regarding a person's blood pressure. There are several lifestyle modifications that are recommended in order to help lower your blood pressure. These include: Quitting smoking if you smoke. Reducing the amount of sodium in your diet. Getting regular exercise Limiting alcohol to no more than 2 drinks a day for men and one drink a day for women. Eating a healthy diet, including more fruits and vegetables, low fat dairy products, less saturated and total fat. Losing weight if you are overweight. FOLLOW-UP: Call your doctor's office and let them know your blood pressure was elevated and you were advised to get your blood pressure checked in the above time-line. If you are unable to get into your doctor's office in this time period, you can follow-up with a new physician (I have left the numbers below for a few primary care doctors affiliated with this [facility]) or return to the ER. PRIMARY CARE PHYSICIANS: Dr. Delaney Watts [address], [place] [phone] [address] Zavala Address: [address] , [place] [address] Dr Cruz Address: [address] , [place] [address] Forms: Elevated Blood Pressure Referrals: [facility] [NO LOCAL MD] - Follow up in 3-5 days ED NIH Stroke Scale - NIH Stroke Scale *: 1. NIH scale should be completed with appropriate accompanying assessment tools. *: 2. The NIH should reflect what the patient is capable of doing and should not be coached by the clinician. 1a. Level of Consciousness: 0=Alert;keenly responsive -: 1=Drowsy -: 2=Obtunded -: 3=Coma/unresponsive or reflex to noxious stimuli. 1a. Responses: 0 1b. Orientation Questions: a. What month is it? -: b. How old are you? -: 0=Answers both questions correctly. -: 1=Answers one question correctly or patient is intubated or has orotracheal trauma. -: 2=Answers neither question correctly. 1b. Responses: 0 1c. Response to commands: a. Open and close eyes? -: b. Speech Language Assistant and release hand? -: Credit is given despite weakness. Demonstration of task is permitted. Substitute command if hands cannot be used. -: 0=Performs both tasks correctly -: 1=Performs one task correctly -: 2=Performs neither task correctly 1c. Responses: 0 2. Gaze: Establish eye contact and instruct patient to "Follow my finger" -: 0=Normal -: 1=Partial gaze palsy. Gaze is abnormal in one or both eyes, but where forced deviation or total gaze paresis is not present. -: 2=Forced deviation or total gaze paresis. 2. Responses: 0 3. Visual Gutierrez: Sees fingers in all four quadrants. -: 0=No visual loss. -: 1=Partial hemianopsia. -: 2=Complete hemianopsia. -: 3=Bilateral hemianopsia (including Cortical blindness) 3. Responses: 0 4. Facial Movement: Instruct patient to: -: a. Show me your teeth -: b. Raise your eyebrows -: c. Close your eyes -: d. Smile -: 0=Normal symmetrical movement -: 1=Minor paralysis (flattened nasolabial fold, asymmetry on smiling). -: 2=Partial paralysis (total or near total paralysis of lower face). -: 3=Complete paralysis of upper and lower face 4. Responses: 0 5. Motor functions (left arm): Alternate sides and extend each arm with palms down (90 degrees if sitting or 45 degrees for supine). -: 0=No drift;limb holds for full 10 seconds. -: 1=Drift; limb holds but drifts down before full 10 seconds, but does not hit bed. -: 2=Some effort against gravity; limb cannot get to or maintain position. -: 3=No effort against gravity; limb falls. -: 4=No movement. -: UN=Amputation, joint fusion, explain in comments. 5. Responses (left arm): 0 5. Motor Functions (right arm): Alternate sides and extend each arm with palms down (90 degrees if sitting or 45 degrees for supine). -: 0=No drift;limb holds for full 10 seconds. -: 1=Drift; limb holds but drifts down before full 10 seconds, but does not hit bed. -: 2=Some effort against gravity; limb cannot get to or maintain position. -: 3=No effort against gravity; limb falls. -: 4=No movement. -: UN=Amputation, joint fusion, explain in comments. 5. Responses (right arm): 0 6. Motor Functions (left leg): With patient lying supine, alternate sides and extend each leg (30 degrees always while supine). -: 0=No drift, leg holds position for full 5 seconds -: 1=Drift; leg falls before full 5 seconds but does not hit bed. -: 2=Some effort against gravity, leg falls to bed but some effort against gravity. -: 3=No effort against gravity, leg falls to bed immediately. -: 4=No movement. -: UN=Amputation, joint fusion; explain in comments. 6. Responses (left leg): 0 6. Motor Functions (right leg): With patient lying supine, alternate sides and extend each leg (30 degrees always while supine). -: 0=No drift, leg holds position for full 5 seconds -: 1=Drift; leg falls before full 5 seconds but does not hit bed. -: 2=Some effort against gravity, leg falls to bed but some effort against gravity. -: 3=No effort against gravity, leg falls to bed immediately. -: 4=No movement. -: UN=Amputation, joint fusion; explain in comments. 6. Responses (right leg): 0 7. Limb Ataxia: With eyes open instruct patient to: -: a. "Touch your finger to your nose". -: b. "Touch your heel to your rocha" -: 0=Absent -: 1=Present in one limb. -: 2=Present in two limbs. -: UN=Amputation or joint fusion; explain in comments. 7. Responses: 0 8. Sensory: Test sensation using pinprick or noxious stimuli. Test as many body parts as possible. -: 0=Normal;no sensory loss -: 1=Mile to moderate sensory loss (patient feels pin prick but is less sharp on affected side). -: 2=Severe or total sensory loss. 8. Responses: 0 9. Best Language: Instruct patient to: -: a. "Describe what you see in this picture." -: b. "Name the items in this picture." -: c. "Read these sentences." -: 0=No aphasia, normal -: 1=Mild to moderate aphasia. -: 2=Severe aphasia -: 3=Mute, global aphasia, no usable speech or auditory comprehension. 9. Responses: 0 10. Articulation, Dysarthia: Instruct patient to: -: "Read these words" or "Repeat these words" -: 0=Normal -: 1=Mild to moderate; patient may slur some words but can be understood without difficulty. -: 2=Severe; patients speech so slurred as to be unintelligible in the absence of dysphasia. -: UN=Intubated or other physical barrier, explain in comments. 10. Responses: 0 11. Extinction or inattention: 0=No abnormality -: 1= Visual, tactile, auditory, spatial, or personal inattention or extinction to bilateral simulation in one or the sensory modalities. -: 2=Profound puneet-inattention or puneet-inattention to more than one modality; does not recognize own hand. 11. Responses: 0 Total Score: 0
[2018-11-25] MEDS ORDERED: LABETALOL HCL INJ 20 MG/4 ML DISP.SYRIN IV ONE (20:11)
[2018-11-25] MEDS ORDERED: METOPROLOL TARTRATE PF/INJ 5 MG/5 ML SDV IV ONE (20:37)
--- NOTE | 2018-11-25 21:28 | RADIOLOGY REPORT (SQ) ---
EXAM DESCRIPTION: RadLex: MR BRAIN WITHOUT IV CONTRAST CLINICAL HISTORY: 48 years Female; headache h/o stroke TECHNIQUE: Routine noncontrast MRI brain protocol COMPARISON: MRI 10/04/2018. FINDINGS: No diffusion restriction. Encephalomalacia along the right central sulcus is again noted. Several old focal infarcts in the anterior left centrum semiovale and subinsular region are also noted. Diffuse cerebral atrophy is unchanged. There are no new lesions. No acute edema or mass effect. No hemosiderin deposition. Calvarial marrow is normal. Paranasal sinuses are clear. Normal flow-voids are seen in the major intracranial arteries. IMPRESSION: 1. No acute infarct or other acute intracranial findings. 2. Chronic ischemic changes with old infarcts as seen on prior exam.
[2018-11-25] MEDS ORDERED: HYDRALAZINE HCL INJ/PF 20 MG/1 ML SDV IV ONE (21:35)
[2018-11-25 21:37] LABS: APPEARANCE,URINE SLIGHTLY-CLOUDY; BILIRUBIN,URINE NEGATIVE (NEGATIVE); COLOR,URINE AMBER; GLUCOSE, URINE NEGATIVE (NEGATIVE); KETONES,URINE NEGATIVE (NEGATIVE); LEUKOCYTE ESTERASE,URINE NEGATIVE (NEGATIVE); NITRITE,URINE NEGATIVE (NEGATIVE); PROTEIN,URINE 100 mg/dL (NEGATIVE); URINE SPECIFIC GRAVITY 1.008
[2018-11-25 22:10] VITALS: BP 169/94
== END 2018-11-25 22:27 | disposition home or self-care (01) ==
LOC: ER 18:12
DX: R51 Headache (principal); Z91.14 Patient's other noncompliance with medication regimen; I11.0 Hypertensive heart disease with heart failure; I50.9 Heart failure, unspecified; I25.10 Atherosclerotic heart disease of native coronary artery without angina pectoris; E78.00 Pure hypercholesterolemia, unspecified; E11.9 Type 2 diabetes mellitus without complications; I25.2 Old myocardial infarction; Z90.49 Acquired absence of other specified parts of digestive tract; Z86.73 Personal history of transient ischemic attack (TIA), and cerebral infarction without residual deficits
CPT/HCPCS: 99284; 96374; 96375; 36415; 85025; 80053; 81001; 70551; 70450; J0360; J3490

== ENCOUNTER 2019-02-25 20:13 | Emergency (ER) | payer OTHER ==
--- NOTE | 2019-02-25 20:32 | ER Document Report ---
ED Medical Screen (RME) - General Chief Complaint: Altered Mental Status Stated Complaint: SHORTNESS OF BREATH Time Seen by Provider: 02/25/19 20:24 Mode of Arrival: Wheelchair Information source: Relative - Son Notes: Patient is a 48-year-old female presenting to the emergency department with complaint of altered mental status. Patient's son reports she has been altered for several months however she has refused to come to the emergency department. Patient son reports that he was finally able to bring her in. He states she does not see a doctor regularly, the last time she saw one was in August when she had her gallbladder removed. He states that she had a heart attack and a stroke one year ago and had "fluid on her heart". Patient's son reports that patient does not take any daily medications as she does not have insurance and they cannot afford this. Patient's skin is significantly jaundiced, patient is not answering any of my questions, patient is sitting up making eye contact with me but not answering any commands. Immediately called charge nurse for a room. Denies hx of alcoholism. I have greeted and performed a rapid initial assessment of this patient. A comprehensive ED assessment and evaluation of the patient, analysis of test results and completion of the medical decision making process will be conducted by additional ED providers. I have specifically instructed the patient or family members with the patient to immediately return to any nursing staff should anything change in the patient's condition or with their chief complaint. This medical record was dictated with voice recognizing software. There may be grammatical, syntax errors that are unintended. TRAVEL OUTSIDE OF THE [place] IN LAST 30 DAYS: No - Related Data Allergies/Adverse Reactions: No Known Allergies Allergy (Verified 11/25/18 18:21) Past Medical History - Social History Frequency of alcohol use: None Drug Abuse: None - Past Medical History Cardiac Medical History: Reports: Hx Congestive Heart Failure, Hx Coronary Artery Disease, Hx Heart Attack, Hx Hypercholesterolemia, Hx Hypertension, Hx Heart Murmur Pulmonary Medical History: Denies: Hx Asthma, Hx COPD Neurological Medical History: Denies: Hx Seizures Endocrine Medical History: Reports: Hx Diabetes Mellitus Type 1, Hx Diabetes Mellitus Type 2. Denies: Hx Hyperthyroidism, Hx Hypothyroidism Renal/ Medical History: Denies: Hx Peritoneal Dialysis GI Medical History: Denies: Hx Cirrhosis, Hx Hepatitis Musculoskeltal Medical History: Denies Hx Arthritis, Denies Hx Gout Skin Medical History: Denies Hx Eczema, Denies Hx Psoriasis Psychiatric Medical History: Denies: Hx Depression Infectious Medical History: Denies: Hx Hepatitis Past Surgical History: Reports: Hx Cardiac Catheterization, Hx Cholecystectomy, Hx Coronary Stent - Immunizations Hx Diphtheria, Pertussis, Tetanus Vaccination: Yes History of Influenza Vaccine for 03/2017 - 08/2017 Season: No Physical Exam - Vital signs Vitals: Pulse Resp BP Pulse Ox 126 H 22 H 179/95 H 100 02/25/19 20:22 02/25/19 20:22 02/25/19 20:22 02/25/19 20:22 Course - Vital Signs Vital signs: Temp Pulse Resp BP Pulse Ox 126 H 22 H 179/95 H 100 02/25/19 20:22 02/25/19 20:22 02/25/19 20:22 02/25/19 20:22
[2019-02-25] MEDS ORDERED: NORMAL SALINE 1000 ML 500 ML IV ONE ×2 (21:15→22:32)
[2019-02-25] MEDS ORDERED: VANCOMYCIN HCL INJ 1000 MG VIAL IV ONE (21:17)
--- NOTE | 2019-02-25 21:37 | RADIOLOGY REPORT (SQ) ---
EXAM DESCRIPTION: XR CHEST 1 VIEW COMPLETED DATE/TME: 02/25/2019 20:28 CLINICAL HISTORY: 48 years, Female, sob, ams COMPARISON: Multiple priors, most recent from 09/03/2018 NUMBER OF VIEWS: One TECHNIQUE: Single frontal view of the chest was obtained portably LIMITATIONS: None. FINDINGS: Cardiopericardial silhouette is enlarged, unchanged. Mediastinal contours are stable. Lungs are clear. No pleural effusion or pneumothorax. IMPRESSION: No acute disease. copyright 2010 [employer]- All Rights Reserved
[2019-02-25 21:42] LABS: HEMATOCRIT 31.5 % (36.0-47.0); HEMOGLOBIN 9.8 g/dL (12.0-15.5); MEAN CORPUSCULAR HEMOGLOBIN 25.3 pg (27.0-33.4); MEAN CORPUSCULAR HGB CONC 31.1 g/dL (32.0-36.0); MEAN CORPUSCULAR VOLUME 81 fl (80-97); PLATELET COUNT 257 10^3/uL (150-450); RED BLOOD COUNT 3.87 10^6/uL (3.72-5.28); RED CELL DISTRIBUTION WIDTH 26.5 % (11.5-14.0); WHITE BLOOD COUNT 8.3 10^3/uL (4.0-10.5)
--- NOTE | 2019-02-25 21:43 | RADIOLOGY REPORT (SQ) ---
EXAM DESCRIPTION: RadLex: CT HEAD WITHOUT IV CONTRAST CLINICAL HISTORY: 48 years Female; sob, ams TECHNIQUE: Noncontrast CT head. All CT scans at this facility use dose modulation, iterative reconstruction, and/or weight based dosing when appropriate to reduce radiation dose to as low as reasonably achievable. COMPARISON: MRI 11/25/2018 FINDINGS: There is a band of encephalomalacia in the posterior right frontal parietal cortex, consistent with old infarct. Old focal infarct is also noted in the left subinsular region, with secondary enlargement of the left frontal horn. No acute hemorrhage or mass effect. No acute cortical edema. Visualized portions of paranasal sinuses and mastoids are clear. Visualized portions of the calvarium are within normal limits. IMPRESSION: 1. No acute intracranial findings. 2. Old right frontal parietal and left subinsular infarcts.
[2019-02-25 21:50] LABS: INTERNATIONAL RATION (INR) 1.58
[2019-02-25 21:58] LABS: ALBUMIN 3.2 g/dL (3.5-5.0); ALKALINE PHOSPHATASE 227 U/L (38-126); ANION GAP 17 (5-19); ASPARTATE AMINO TRANSFERASE 49 U/L (14-36); BILIRUBIN,DIRECT 6.5 mg/dL (0.0-0.4); BLOOD UREA NITROGEN 20 mg/dL (7-20); CALCIUM 8.6 mg/dL (8.4-10.2); CARBON DIOXIDE 18 mmol/L (22-30); CHLORIDE 103 mmol/L (98-107); GLUCOSE 178 mg/dL (75-110); POTASSIUM 4.1 mmol/L (3.6-5.0); TOTAL PROTEIN 8.3 g/dL (6.3-8.2)
[2019-02-25 22:05] LABS: APPEARANCE,URINE SLIGHTLY-CLOUDY; BILIRUBIN,URINE MODERATE (NEGATIVE); COLOR,URINE AMBER; GLUCOSE, URINE NEGATIVE (NEGATIVE); KETONES,URINE NEGATIVE (NEGATIVE); LEUKOCYTE ESTERASE,URINE NEGATIVE (NEGATIVE); NITRITE,URINE POSITIVE (NEGATIVE); PROTEIN,URINE 100 mg/dL (NEGATIVE); URINE SPECIFIC GRAVITY 1.025
[2019-02-25 22:15] LABS: ABSOLUTE LYMPHOCYTES# (MANUAL) 1.1 10^3/uL (0.5-4.7); ABSOLUTE MONOCYTES # (MANUAL) 0.2 10^3/uL (0.1-1.4); ANISOCYTOSIS 3+; BAND NEUTROPHILS % (MANUAL) 1 % (3-5); BASOPHILS % (MANUAL) 1 % (0-2); EOSINOPHILS % (MANUAL) 0 % (0-6); HYPOCHROMASIA SLIGHT; LYMPHOCYTES % (MANUAL) 13 % (13-45); MONOCYTES % (MANUAL) 2 % (3-13); SEGMENTED NEUTROPHILS % (MAN) 83 % (42-78); TOTAL CELLS COUNTED 100
[2019-02-25 22:16] LABS: PLATELET COMMENT ADEQUATE; TARGET CELLS SLIGHT
[2019-02-25 22:20] LABS: TROPONIN I 0.039 ng/mL
[2019-02-25 22:23] LABS: VENOUS BLOOD BASE EXCESS -4.6 mmol/L; VENOUS BLOOD HCO3 19.9 mmol/L (20-32); VENOUS BLOOD PCO2 34.5 mmHg (35-63); VENOUS BLOOD PH 7.38 (7.30-7.42)
[2019-02-25] MEDS ORDERED: CEFTRIAXONE 1 GM/D5W RTU 1 GM/50 ML RTUPB IV ONE (22:29)
[2019-02-25 22:30] LABS: URINE AMPHETAMINES SCREEN NEGATIVE; URINE BARBITURATES SCREEN NEGATIVE; URINE BENZODIAZEPINES SCREEN NEGATIVE; URINE COCAINE SCREEN NEGATIVE; URINE MARIJUANA (THC) SCREEN NEGATIVE; URINE METHADONE SCREEN NEGATIVE; URINE PHENCYCLIDINE SCREEN NEGATIVE
--- NOTE | 2019-02-25 23:23 | RADIOLOGY REPORT (SQ) ---
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 TECHNIQUE: Axial 2-D grayscale images of the abdomen were obtained. Doppler was utilized. LIMITATIONS: None. FINDINGS: Visualized portions of the pancreas appear normal in echogenicity. Visualized portions of the abdominal aorta appear normal with measurements as follows: Proximal abdominal aorta: 1.9 cm Mid abdominal aorta: 1.4 cm Distal abdominal aorta: Not visualized. Visualized portions of the IVC appear normal. The liver is diffusely echogenic and coarsened in echotexture. A small amount of perihepatic ascites is noted. The liver measures 18.9 cm in length. Pulsatile/biphasic flow is evident within the portal vein. Common bile duct diameter measures 0.3 cm. The gallbladder is absent. Right kidney measures 11.9 x 4.2 x 5.7 cm in size. No hydronephrosis. IMPRESSION: Echogenic liver which appears coarsened in echotexture, suggestive of diffuse hepatocellular disease such as hepatic steatosis. Pulsatile/biphasic flow within the portal vein, a finding which is generally associated with portal hypertension. Small amount of perihepatic ascites. No significant common bile duct dilatation. copyright 2010 [employer]- All Rights Reserved
--- NOTE | 2019-02-26 00:43 | RADIOLOGY REPORT (SQ) ---
CT OF THE CHEST, ABDOMEN, AND PELVIS EXAM DATE: 02/25/2019 10:31 PM CDT HISTORY: Sepsis. COMPARISON: None. TECHNIQUE: CT scan of the chest, abdomen, and pelvis with IV contrast. This exam was performed according to our departmental dose-optimization program, which includes automated exposure control, adjustment of the mA and/or kV according to patient size and/or use of iterative reconstruction technique. FINDINGS: There is moderate cardiomegaly without pericardial effusion. There are trace bilateral pleural effusions. No pneumothorax. No gross mediastinal or hilar adenopathy. The liver has a macronodular contour consistent with cirrhosis. The spleen, pancreas, adrenal glands, and kidneys are unremarkable. There has been a prior cholecystectomy. A Banks catheter in the urinary bladder is present. The small bowel and large bowel are grossly unremarkable. Moderate amount of abdominopelvic ascites. Diffuse body wall anasarca. No intraperitoneal free air. There are multiple filling defects within the bilateral upper and lower lobe segmental branches extending to the right main pulmonary artery, consistent with bilateral pulmonary embolism. There are patchy areas of alteration in the bilateral lower lobes and the right lung consistent with pulmonary infarctions. No aortic dissection or aneurysm. No acute fracture. IMPRESSION: 1. Acute bilateral pulmonary embolism extending to the right main pulmonary artery. No saddle embolus. 2. Multifocal areas of pulmonary infarction in both lungs. 3. Cirrhotic liver with abdominopelvic ascites and body wall anasarca.
[2019-02-26] MEDS ORDERED: HEPARIN SOD (PORCINE) 1,000 UNIT/ML 10 ML VIAL IV ONE (01:23)
--- NOTE | 2019-02-26 01:55 | ER Document Report ---
ED General - General Mode of Arrival: Wheelchair TRAVEL OUTSIDE OF THE [place] IN LAST 30 DAYS: No <HOLLY CROOKS - Last Filed: 02/26/19 03:37> <BJRAINE - Last Filed: 02/26/19 06:28> - General Chief Complaint: Altered Mental Status Stated Complaint: SHORTNESS OF BREATH Time Seen by Provider: 02/25/19 20:24 Notes: RME NOTE: Patient is a 48-year-old female presenting to the emergency department with complaint of altered mental status. Patient's son reports she has been altered for several months however she has refused to come to the emergency department. Patient son reports that he was finally able to bring her in. He states she does not see a doctor regularly, the last time she saw one was in August when she had her gallbladder removed. He states that she had a heart attack and a stroke one year ago and had "fluid on her heart". Patient's son reports that patient does not take any daily medications as she does not have insurance and they cannot afford this. Patient's skin is significantly jaundiced, patient is not answering any of my questions, patient is sitting up making eye contact with me but not answering any commands. Immediately called charge nurse for a room. Denies hx of alcoholism. MY HPI: (HOLLY CROOKS) - Related Data Allergies/Adverse Reactions: No Known Allergies Allergy (Verified 11/25/18 18:21) Past Medical History - General Information source: Relative - Son - Social History Smoking Status: Never Smoker Frequency of alcohol use: None Drug Abuse: None Family History: Reviewed & Not Pertinent, Other Patient has suicidal ideation: No Patient has homicidal ideation: No - Past Medical History Cardiac Medical History: Reports: Hx Congestive Heart Failure, Hx Coronary Artery Disease, Hx Heart Attack, Hx Hypercholesterolemia, Hx Hypertension, Hx He art Murmur Pulmonary Medical History: Denies: Hx Asthma, Hx COPD Neurological Medical History: Denies: Hx Seizures Endocrine Medical History: Reports: Hx Diabetes Mellitus Type 1, Hx Diabetes Mellitus Type 2. Denies: Hx Hyperthyroidism, Hx Hypothyroidism Renal/ Medical History: Denies: Hx Peritoneal Dialysis GI Medical History: Denies: Hx Cirrhosis, Hx Hepatitis Musculoskeletal Medical History: Denies Hx Arthritis, Denies Hx Gout Skin Medical History: Denies Hx Eczema, Denies Hx Psoriasis Psychiatric Medical History: Denies: Hx Depression Infectious Medical History: Denies: Hx Hepatitis Past Surgical History: Reports: Hx Cardiac Catheterization, Hx Cholecystectomy, Hx Coronary Stent - Immunizations Hx Diphtheria, Pertussis, Tetanus Vaccination: Yes <HOLLY CROOKS - Last Filed: 02/26/19 03:37> Physical Exam - Vital signs Vitals: Pulse Resp BP Pulse Ox 126 H 22 H 179/95 H 100 02/25/19 20:22 02/25/19 20:22 02/25/19 20:22 02/25/19 20:22 Course - Laboratory Result Diagrams: 02/25/19 21:19 02/25/19 21:19 <HOLLY CROOKS - Last Filed: 02/26/19 03:37> - Laboratory Result Diagrams: 02/25/19 21:19 02/25/19 21:19 <GERALDINE LORENZO - Last Filed: 02/26/19 06:28> - Re-evaluation Re-evalutation: 02/26/19 01:54 Discussed this case with Dr. Bartlett in the ICU at [facility]. He accepts the pt. to their facility. Transfer d/t [place] not having GI fire control officer 02/26/19 03:15 Transport here for Pt. remains the same. HR 111 temp 98.3 via [facility] BP 187/114 RR 27 98% on RA (HOLLY CROOKS) Chest X-Ray 02/25/19 20:28 IMPRESSION: No acute disease. copyright 2010 [employer]- All Rights Reserved Head CT 02/25/19 20:28 IMPRESSION: 1. No acute intracranial findings. 2. Old right frontal parietal and left subinsular infarcts. Abdomen Ultrasound 02/25/19 21:12 IMPRESSION: Echogenic liver which appears coarsened in echotexture, suggestive of diffuse hepatocellular disease such as hepatic steatosis. Pulsatile/biphasic flow within the portal vein, a finding which is generally associated with portal hypertension. Small amount of perihepatic ascites. No significant common bile duct dilatation. copyright 2010 [employer]- All Rights Reserved Abdomen/Pelvis CT 02/25/19 22:31 IMPRESSION: 1. Acute bilateral pulmonary embolism extending to the right main pulmonary artery. No saddle embolus. 2. Multifocal areas of pulmonary infarction in both lungs. 3. Cirrhotic liver with abdominopelvic ascites and body wall anasarca. Chest CT 02/25/19 22:31 IMPRESSION: 1. Acute bilateral pulmonary embolism extending to the right main pulmonary artery. No saddle embolus. 2. Multifocal areas of pulmonary infarction in both lungs. 3. Cirrhotic liver with abdominopelvic ascites and body wall anasarca. 02/26/19 02:06 Patient was seen and examined as requested by [facility]. PHYSICAL EXAMINATION: GENERAL: Confused, jaundiced, ill-appearing HEAD: Atraumatic, normocephalic. EYES: Pupils equal round extraocular movements intact, conjunctiva are normal. ENT: Nares patent Rectal: Brown stool, Hemoccult negative. LUNGS: Clear to auscultation bilaterally NEUROLOGICAL: Alert and oriented x1 PSYCH: Normal mood, normal affect. SKIN: Diffuse erythema in the groin, buttocks. Blistering of the buttocks. 02/26/19 06:21 Patient found to have worsening total bili, acute bilateral PE. Patient given Vancomycin. Heparin gtt initiated. Patient being transferred to [facility]. (GERALDINE LORENZO) - Vital Signs Vital signs: Temp Pulse Resp BP Pulse Ox 98.3 F 126 H 27 H 187/114 H 98 02/26/19 03:01 02/25/19 20:22 02/26/19 03:01 02/26/19 03:01 02/26/19 03:01 - Laboratory Laboratory results interpreted by me: 02/25/19 02/25/19 02/25/19 20:58 21:19 21:19 Hgb 9.8 L Hct 31.5 L MCH 25.3 L MCHC 31.1 L RDW 26.5 H Seg Neuts % (Manual) 83 H Band Neutrophils % 1 L Monocytes % (Manual) 2 L PT 19.0 H VBG pCO2 VBG HCO3 Carbon Dioxide Glucose POC Glucose 166 H Lactic Acid Total Bilirubin Direct Bilirubin AST Alkaline Phosphatase NT-Pro-B Natriuret Pep Total Protein Albumin Urine Protein Urine Blood Urine Nitrite Urine Bilirubin Urine Urobilinogen 02/25/19 02/25/19 02/25/19 21:19 21:19 21:19 Hgb Hct MCH MCHC RDW Seg Neuts % (Manual) Band Neutrophils % Monocytes % (Manual) PT VBG pCO2 VBG HCO3 Carbon Dioxide 18 L Glucose 178 H POC Glucose Lactic Acid 5.9 H Total Bilirubin 8.0 H Direct Bilirubin 6.5 H AST 49 H Alkaline Phosphatase 227 H NT-Pro-B Natriuret Pep 39053 H Total Protein 8.3 H Albumin 3.2 L Urine Protein Urine Blood Urine Nitrite Urine Bilirubin Urine Urobilinogen 02/25/19 02/25/19 21:38 22:10 Hgb Hct MCH MCHC RDW Seg Neuts % (Manual) Band Neutrophils % Monocytes % (Manual) PT VBG pCO2 34.5 L VBG HCO3 19.9 L Carbon Dioxide Glucose POC Glucose Lactic Acid Total Bilirubin Direct Bilirubin AST Alkaline Phosphatase NT-Pro-B Natriuret Pep Total Protein Albumin Urine Protein 100 H Urine Blood SMALL H Urine Nitrite POSITIVE H Urine Bilirubin MODERATE H Urine Urobilinogen 4.0 H Critical Care Note - Critical Care Note Total time excluding time spent on procedures (mins): 45 - minutes of critical care time spent in direct contact evaluating and reevaluating the patient, treating symptoms, reviewing labs and studies and speaking with family and consultants excluding any procedures <GERALDINE LORENZO - Last Filed: 02/26/19 06:28> Discharge <HOLLY CROOKS - Last Filed: 02/26/19 03:37> <GERALDINE LORENZO - Last Filed: 02/26/19 06:28> - Discharge Clinical Impression: Elevated liver function tests, Skin excoriation, Lactic acid acidosis, Chronic combined systolic and diastolic congestive heart failure Pulmonary embolism Qualifiers: Pulmonary embolism type: unspecified Chronicity: acute Acute cor pulmonale pr esence: without acute cor pulmonale Qualified Code(s): I26.99 - Other pulmonary embolism without acute cor pulmonale Altered mental status Qualifiers: Altered mental status type: unspecified Qualified Code(s): R41.82 - Altered mental status, unspecified Liver cirrhosis Qualifiers: Hepatic cirrhosis type: unspecified hepatic cirrhosis Ascites presence: with ascites Qualified Code(s): K74.60 - Unspecified cirrhosis of liver; R18.8 - Other ascites Anemia Qualifiers: Anemia type: unspecified type Qualified Code(s): D64.9 - Anemia, unspecified Condition: Fair Disposition: [facility]
[2019-02-26] MEDS ORDERED: FENTANYL CITRATE INJ/PF 100 MCG/2 ML AMPUL IV ONE (02:07)
[2019-02-26 03:19] VITALS: BP 187/114
--- NOTE | 2019-02-26 10:05 | EKG REPORT ---
SEVERITY:- BORDERLINE ECG - SINUS TACHYCARDIA VENTRICULAR PREMATURE COMPLEX DIFFUSE T ABNORMALITIES, : Confirmed by: Marin Pulido MD 26-Feb-2019 10:04:26
== END 2019-02-26 04:33 | disposition short-term general hospital (02) ==
LOC: ER 20:13
DX: I26.99 Other pulmonary embolism without acute cor pulmonale (principal); K74.60 Unspecified cirrhosis of liver; I50.42 Chronic combined systolic (congestive) and diastolic (congestive) heart failure; E87.2 Acidosis; R18.8 Other ascites; R94.5 Abnormal results of liver function studies; L98.1 Factitial dermatitis; D64.9 Anemia, unspecified; R41.82 Altered mental status, unspecified; R06.02 Shortness of breath; I25.10 Atherosclerotic heart disease of native coronary artery without angina pectoris; E78.00 Pure hypercholesterolemia, unspecified; I11.0 Hypertensive heart disease with heart failure; E11.9 Type 2 diabetes mellitus without complications; Z90.49 Acquired absence of other specified parts of digestive tract; I25.2 Old myocardial infarction
CPT/HCPCS: 93005; 99291; 96361; 51702; 96375; 96365; 96368; 36415; 87040; 87086; 82553; 82962; 80307 ×2; 82140; 82550; 85025; 85610; 87088; 80053; 81001; 84484; 87186; 82803; 83605; 83880; 71045; 76705; 70450; 71260; 74177; 93010; J3010; J7030 ×2; J3370; J0696

== ENCOUNTER 2019-05-10 09:22 | Emergency (ER) | payer OTHER ==
[2019-05-10 09:46] LABS: ABSOLUTE EOSINOPHILS # (AUTO) 0.1 10^3/uL (0.0-0.6); ABSOLUTE LYMPHOCYTES (AUTO) 2.1 10^3/uL (0.5-4.7); ABSOLUTE MONOCYTES (AUTO) 0.4 10^3/uL (0.1-1.4); ABSOLUTE NEUT (AUTO) 4.2 10^3/uL (1.7-8.2); BASOPHILS % (AUTO) 0.5 % (0-2); EOSINOPHILS % (AUTO) 1.5 % (0-6); HEMATOCRIT 36.6 % (36.0-47.0); HEMOGLOBIN 12.2 g/dL (12.0-15.5); LYMPHOCYTES % (AUTO) 30.8 % (13-45); MEAN CORPUSCULAR HEMOGLOBIN 27.7 pg (27.0-33.4); MEAN CORPUSCULAR HGB CONC 33.3 g/dL (32.0-36.0); MEAN CORPUSCULAR VOLUME 83 fl (80-97); MONOCYTES % (AUTO) 5.5 % (3-13); PLATELET COUNT 302 10^3/uL (150-450); RED CELL DISTRIBUTION WIDTH 19.3 % (11.5-14.0); SEGMENTED NEUTROPHILS % (AUTO) 61.7 % (42-78); TOTAL CELLS COUNTED % (AUTO) 100 %; WHITE BLOOD COUNT 6.9 10^3/uL (4.0-10.5)
[2019-05-10 10:11] LABS: ALBUMIN 3.9 g/dL (3.5-5.0); ALKALINE PHOSPHATASE 142 U/L (38-126); ANION GAP 15 (5-19); ASPARTATE AMINO TRANSFERASE 36 U/L (14-36); BILIRUBIN,TOTAL 1.7 mg/dL (0.2-1.3); BLOOD UREA NITROGEN 12 mg/dL (7-20); CALCIUM 9.9 mg/dL (8.4-10.2); CARBON DIOXIDE 30 mmol/L (22-30); CHLORIDE 98 mmol/L (98-107); GLUCOSE 217 mg/dL (75-110); POTASSIUM 3.2 mmol/L (3.6-5.0); TOTAL PROTEIN 8.7 g/dL (6.3-8.2)
[2019-05-10 10:12] LABS: ALCOHOL < 10 mg/dL (NONE DETECTED)
[2019-05-10 10:14] LABS: APPEARANCE,URINE CLOUDY; BILIRUBIN,URINE NEGATIVE (NEGATIVE); COLOR,URINE YELLOW; GLUCOSE, URINE NEGATIVE (NEGATIVE); KETONES,URINE NEGATIVE (NEGATIVE); LEUKOCYTE ESTERASE,URINE LARGE (NEGATIVE); NITRITE,URINE POSITIVE (NEGATIVE); PROTEIN,URINE NEGATIVE (NEGATIVE); URINE SPECIFIC GRAVITY 1.008
--- NOTE | 2019-05-10 10:25 | RADIOLOGY REPORT (SQ) ---
EXAM DESCRIPTION: CT HEAD WITHOUT COMPLETED DATE/TIME: 05/10/2019 10:10 am REASON FOR STUDY: t2 per dr lara new onset seizure COMPARISON: CT of the head without contrast from 02/25/2019 TECHNIQUE: Axial images acquired through the brain without intravenous contrast. Images reviewed wi th bone, brain and subdural windows. Additional sagittal and coronal reconstructions were generated. Images stored on PACS. All CT scanners at this facility use dose modulation, iterative reconstruction, and/or weight based d osing when appropriate to reduce radiation dose to as low as reasonably achievable (ALARA). [facility]: Dose Right [facility]: CareDose [facility]: Dose Right [facility]: Teradose 4D [facility]: Stoke RADIATION DOSE: CT Rad equipment meets quality standard of care and radiation dose reduction techniq ues were employed. CTDIvol: 53.2 mGy. DLP: 1044 mGy-cm. mGy. LIMITATIONS: None. FINDINGS: Chronic left insular and parietal infarcts. There is no acute intracranial hemorrhage, va scular territorial infarct, extra-axial fluid collection, mass effect or midline shift. There is no effacement of cerebral sulci or basal subarachnoid cisterns. There is ex vacuo dilatation of the fro ntal horn of the left lateral ventricle; the caliber of the ventricles is unchanged from 02/25/2019. The orbits and globes are intact. The paranasal sinuses and the mastoid air cells are clear. There is no fracture of the calvarium. IMPRESSION: No acute intracranial abnormality. EVIDENCE OF ACUTE STROKE: NO. COMMENT: Quality ID # [id number]: Final reports with documentation of one or more dose reduction techniques (e.g., Automated exposure control, adjustment of the mA and/or kV according to patient size, use of iterative reconstruction technique) TECHNICAL DOCUMENTATION: JOB ID: [id number]- All Rights Reserved Reading location - IP/workstation name: [email or web address]
[2019-05-10 10:27] LABS: URINE AMPHETAMINES SCREEN NEGATIVE; URINE BARBITURATES SCREEN NEGATIVE; URINE BENZODIAZEPINES SCREEN NEGATIVE; URINE COCAINE SCREEN NEGATIVE; URINE MARIJUANA (THC) SCREEN NEGATIVE; URINE METHADONE SCREEN NEGATIVE; URINE PHENCYCLIDINE SCREEN NEGATIVE
[2019-05-10 10:48] LABS: INTERNATIONAL RATION (INR) 1.21; PROTHROMBIN TIME 15.4 SEC (11.4-15.4)
--- NOTE | 2019-05-10 10:52 | ER Document Report ---
ED General - General Chief Complaint: Probable Seizure Stated Complaint: POSSIBLE SEIZURE Time Seen by Provider: 05/10/19 09:48 Notes: HPI: 48-year-old female who presents by EMS secondary to a witnessed tonic- clonic seizure by the son. Lasted around 15 seconds. No history of seizures. I called the son and spoke to EMS. Patient supposedly was admitted for 2 months to [facility] being discharged on Thursday, 4 days ago. The son is not exactly sure with the patient was admitted for. He was able to read the discharge diagnoses off a piece of paper showing a left pontine stroke, pyelonephritis, and cirrhosis. Patient supposedly has had multiple strokes in the past prior to her being admitted for 2 months at [facility]. The son states she was able to walk and speak intermittently before being admitted to [facility]. He states she was not admitted to [facility] secondary to a stroke but because of "liver trouble". He states she suffered a stroke while at [facility]. No history of seizures previously. He states that the patient does not speak or move her right upper or right lower extremity since the repeat reoccurrence of the stroke at [facility]. Reviewing the patient's chart here on February 26, it appears that the patient presented at that time with jaundiced skin discoloration. She also had some shortness of breath. She was found to have cirrhosis with only minimal ascites around the liver. She was also found to have bilateral pulmonary emboli. She was transferred to [facility]. Old strokes on CT scan. Patient cannot appropriately to questions. She denies any pain. Specifically she nods no to headache, neck pain, chest pain, abdominal pain, or shortness of breath. She does not remember the events of the seizure. ROS: See HPI All other review of systems reviewed and otherwise negative Reviewed vital signs and nursing note as charted by RN. PHYSICAL EXAM: CONSTITUTIONAL: Alert and does not appropriately to questions HEAD: Normocephalic; atraumatic EYES: PERRL; Conjunctivae clear, sclerae only mildly jaundiced ENT: Normal nose; no rhinorrhea; moist mucous membranes; pharynx without lesions noted NECK: Supple without meningismus; non-tender; no cervical lymphadenopathy, no masses CARD: Regular rate and rhythm; no murmurs; symmetric distal pulses RESP: Normal chest excursion without splinting or tachypnea; breath sounds clear and equal bilaterally ABD/GI: Normal bowel sounds; non-distended; soft, non-tender to deep palpation of all 4 quadrants of the abdomen BACK: The back appears normal and is non-tender to palpation EXT: Normal ROM in all joints; non-tender to palpation; no edema SKIN: No acute lesions noted NEURO: CN 2-12 intact; patient has no movement to the right upper or lower extremity consistent with patient's history according to the chart and the son PSYCH: The patient's mood and manner are appropriate. Grooming and personal hygiene are appropriate. TRAVEL OUTSIDE OF THE [place] IN LAST 30 DAYS: No - Related Data Allergies/Adverse Reactions: No Known Allergies Allergy (Verified 11/25/18 18:21) Past Medical History - Social History Smoking Status: Unknown if Ever Smoked Family History: Reviewed & Not Pertinent, Other Patient has suicidal ideation: No Patient has homicidal ideation: No - Past Medical History Cardiac Medical History: Reports: Hx Congestive Heart Failure, Hx Coronary Artery Disease, Hx Heart Attack, Hx Hypercholesterolemia, Hx Hypertension, Hx Heart Murmur Pulmonary Medical History: Denies: Hx Asthma, Hx COPD Neurological Medical History: Denies: Hx Seizures Endocrine Medical History: Reports: Hx Diabetes Mellitus Type 1, Hx Diabetes Mellitus Type 2. Denies: Hx Hyperthyroidism, Hx Hypothyroidism Renal/ Medical History: Denies: Hx Peritoneal Dialysis GI Medical History: Denies: Hx Cirrhosis, Hx Hepatitis Musculoskeletal Medical History: Denies Hx Arthritis, Denies Hx Gout Skin Medical History: Denies Hx Eczema, Denies Hx Psoriasis Psychiatric Medical History: Denies: Hx Depression Infectious Medical History: Denies: Hx Hepatitis Past Surgical History: Reports: Hx Cardiac Catheterization, Hx Cholecystectomy, Hx Coronary Stent - Immunizations Hx Diphtheria, Pertussis, Tetanus Vaccination: Yes Physical Exam - Vital signs Vitals: Resp Pulse Ox 16 98 05/10/19 09:33 05/10/19 09:33 Course - Re-evaluation Re-evalutation: 05/10/19 10:51 Given the above history and physical examination, we will proceed with CT scan of the head, basic labs, liver panel labs, PT/INR, catheterized urine analysis, and reassess. Patient denies any and all pain. No history of previous seizure. We will also attempt to obtain discharge medical records from [facility]. 05/10/19 11:00 Labs initially as recorded. CT scan of the head as recorded. No change in exam. Vital signs are stable. The patient's son is [place] at [phone]. Another number is [phone]. Catheterized urine analysis as recorded. Urine culture and antibiotics have been started. Called [facility] to speak to 1 of the hospitalists about the patient's hospital course and discharge summary and plan. 05/10/19 11:26 I have replaced the patient's magnesium, potassium, have provided 1500 mg of Keppra, and have called [facility] and spoken to the PA. - Vital Signs Vital signs: Temp Pulse Resp BP Pulse Ox 97.7 F 15 154/104 H 98 05/10/19 10:04 05/10/19 10:04 05/10/19 10:04 05/10/19 10:04 - Laboratory Result Diagrams: 05/10/19 09:28 05/10/19 09:28 Laboratory results interpreted by me: 05/10/19 05/10/19 05/10/19 09:28 09:28 09:46 RDW 19.3 H Potassium 3.2 L Creatinine 0.48 L Glucose 217 H Magnesium 1.4 L Total Bilirubin 1.7 H Direct Bilirubin 1.0 H Alkaline Phosphatase 142 H Total Protein 8.7 H Urine Blood MODERATE H Urine Nitrite POSITIVE H Urine Urobilinogen 4.0 H Ur Leukocyte Esterase LARGE H Critical Care Note - Critical Care Note Total time excluding time spent on procedures (mins): 35 Discharge - Discharge Clinical Impression: New onset seizure, Low blood potassium, Low magnesium level Altered mental state Qualifiers: Altered mental status type: unspecified Qualified Code(s): R41.82 - Altered mental status, unspecified UTI (urinary tract infection) Qualifiers: Urinary tract infection type: site unspecified Hematuria presence: without hematuria Qualified Code(s): N39.0 - Urinary tract infection, site not specified Condition: Fair Disposition: [facility]
[2019-05-10] MEDS ORDERED: CEFTRIAXONE 1 GM/D5W RTU 1 GM/50 ML RTUPB IV ONE (10:56)
[2019-05-10] MEDS ORDERED: LEVETIRACETAM 1500 MG/NACL-ISO 1,500 MG/100 ML RTUPB IV ONE (11:26)
[2019-05-10] MEDS ORDERED: POTASSI CL 20 MEQ/50 ML RIDER 20 MEQ/50 ML RTUPB IV ONE (11:29)
--- NOTE | 2019-05-10 12:11 | RADIOLOGY REPORT (SQ) ---
EXAM DESCRIPTION: SHOULDER RIGHT 2 OR MORE VIEWS COMPLETED DATE/TIME: 05/10/2019 11:58 am REASON FOR STUDY: tenderness COMPARISON: None. NUMBER OF VIEWS: Two views. TECHNIQUE: Frontal and transscapular Y images acquired of the right shoulder. LIMITATIONS: None. FINDINGS: MINERALIZATION: Normal. BONES: No acute fracture. No worrisome bone lesions. JOINTS: No dislocation. VISUALIZED LUNGS AND RIBS: No pneumothorax. No rib fracture. SOFT TISSUES: No radiopaque foreign body. OTHER: No other significant finding. IMPRESSION: NEGATIVE STUDY OF THE RIGHT SHOULDER. NO RADIOGRAPHIC EVIDENCE OF ACUTE INJURY. TECHNICAL DOCUMENTATION: JOB ID: [id number]- All Rights Reserved Reading location - IP/workstation name: [email or web address]
[2019-05-10] MEDS: MAGNESIUM SULFATE/D5W 1 GM/100 ML RTUPB IV SCH ×2 (12:24→13:47)
--- NOTE | 2019-05-10 16:19 | EKG REPORT ---
SEVERITY:- ABNORMAL ECG - SINUS RHYTHM LVH WITH SECONDARY REPOLARIZATION ABNORMALITY : Confirmed by: Celine Dorsey MD 10-May-2019 16:18:53
[2019-05-10] MEDS ORDERED: KETOROLAC TROMETHAMINE INJ/PF 30 MG/1 ML SDV IV ONE (20:36)
[2019-05-10] MEDS ORDERED: MORPHINE SULFATE 10 MG/ML INJ IV ONE (22:12)
--- NOTE | 2019-05-11 00:31 | EKG REPORT ---
SEVERITY:- ABNORMAL ECG - SINUS RHYTHM LVH WITH SECONDARY REPOLARIZATION ABNORMALITY : Confirmed by: Celine Dorsey MD 11-May-2019 00:30:30
--- NOTE | 2019-05-11 09:08 | ER Document Report ---
Doctor's Note Notes: 05/11/19 09:07 Patient reevaluated at approximately 9 AM. Patient is resting comfortably in the bed. Vital signs are stable. Abdomen is soft nontender and nondistended. Patient has no complaints at this time states that she feels "fine". Heart regular rate and rhythm. Lungs are clear to auscultation bilaterally. Skin is warm and dry.
[2019-05-11] MEDS ORDERED: CEFTRIAXONE 1 GM/D5W RTU 1 GM/50 ML RTUPB IV ONE (11:55)
[2019-05-11 12:30] LABS: ABSOLUTE EOSINOPHILS # (AUTO) 0.1 10^3/uL (0.0-0.6); ABSOLUTE LYMPHOCYTES (AUTO) 2.5 10^3/uL (0.5-4.7); ABSOLUTE MONOCYTES (AUTO) 0.4 10^3/uL (0.1-1.4); ABSOLUTE NEUT (AUTO) 4.1 10^3/uL (1.7-8.2); BASOPHILS % (AUTO) 0.5 % (0-2); EOSINOPHILS % (AUTO) 1.7 % (0-6); HEMATOCRIT 37.7 % (36.0-47.0); HEMOGLOBIN 12.5 g/dL (12.0-15.5); LYMPHOCYTES % (AUTO) 34.3 % (13-45); MEAN CORPUSCULAR HEMOGLOBIN 27.5 pg (27.0-33.4); MEAN CORPUSCULAR HGB CONC 33.1 g/dL (32.0-36.0); MEAN CORPUSCULAR VOLUME 83 fl (80-97); MONOCYTES % (AUTO) 5.9 % (3-13); PLATELET COUNT 277 10^3/uL (150-450); RED BLOOD COUNT 4.53 10^6/uL (3.72-5.28); RED CELL DISTRIBUTION WIDTH 19.3 % (11.5-14.0); SEGMENTED NEUTROPHILS % (AUTO) 57.6 % (42-78); TOTAL CELLS COUNTED % (AUTO) 100 %; WHITE BLOOD COUNT 7.2 10^3/uL (4.0-10.5)
[2019-05-11 13:03] LABS: ALKALINE PHOSPHATASE 160 U/L (38-126); ANION GAP 12 (5-19); ASPARTATE AMINO TRANSFERASE 41 U/L (14-36); BLOOD UREA NITROGEN 16 mg/dL (7-20); CALCIUM 10.3 mg/dL (8.4-10.2); CARBON DIOXIDE 33 mmol/L (22-30); CHLORIDE 97 mmol/L (98-107); GLUCOSE 172 mg/dL (75-110); POTASSIUM 3.3 mmol/L (3.6-5.0); TOTAL PROTEIN 8.7 g/dL (6.3-8.2)
[2019-05-11] MEDS ORDERED: POTASSIUM CHLORIDE 20 MEQ PACKET PO ONE (13:27)
--- NOTE | 2019-05-11 18:39 | ER Document Report ---
ED General - General Chief Complaint: Probable Seizure Stated Complaint: POSSIBLE SEIZURE Time Seen by Provider: 05/10/19 09:48 TRAVEL OUTSIDE OF THE [place] IN LAST 30 DAYS: No - Related Data Allergies/Adverse Reactions: No Known Allergies Allergy (Verified 11/25/18 18:21) Past Medical History - Social History Smoking Status: Unknown if Ever Smoked Family History: Reviewed & Not Pertinent, Other Patient has suicidal ideation: No Patient has homicidal ideation: No - Past Medical History Cardiac Medical History: Reports: Hx Congestive Heart Failure, Hx Coronary Artery Disease, Hx Heart Attack, Hx Hypercholesterolemia, Hx Hypertension, Hx Heart Murmur Pulmonary Medical History: Denies: Hx Asthma, Hx COPD Neurological Medical History: Denies: Hx Seizures Endocrine Medical History: Reports: Hx Diabetes Mellitus Type 1, Hx Diabetes Mellitus Type 2. Denies: Hx Hyperthyroidism, Hx Hypothyroidism Renal/ Medical History: Denies: Hx Peritoneal Dialysis GI Medical History: Denies: Hx Cirrhosis, Hx Hepatitis Musculoskeletal Medical History: Denies Hx Arthritis, Denies Hx Gout Skin Medical History: Denies Hx Eczema, Denies Hx Psoriasis Psychiatric Medical History: Denies: Hx Depression Infectious Medical History: Denies: Hx Hepatitis Past Surgical History: Reports: Hx Cardiac Catheterization, Hx Cholecystectomy, Hx Coronary Stent - Immunizations Hx Diphtheria, Pertussis, Tetanus Vaccination: Yes Physical Exam - Vital signs Vitals: Resp Pulse Ox 16 98 05/10/19 09:33 05/10/19 09:33 Course - Re-evaluation Re-evalutation: 05/11/19 18:38 MDM Pt unable to sign to sign for transport somewhat altered but no distress or seizure activity. Feel she is safe for transport to [facility]. - Vital Signs Vital signs: Temp Pulse Resp BP Pulse Ox 97.9 F 18 163/94 H 98 05/11/19 08:31 05/11/19 17:33 05/11/19 17:33 05/11/19 17:33 - Laboratory Result Diagrams: 05/11/19 12:13 05/11/19 12:13 Laboratory results interpreted by me: 05/10/19 05/10/19 05/10/19 09:28 09:28 09:46 RDW 19.3 H Potassium 3.2 L Chloride Carbon Dioxide Creatinine 0.48 L Glucose 217 H Calcium Magnesium 1.4 L Total Bilirubin 1.7 H Direct Bilirubin 1.0 H AST Alkaline Phosphatase 142 H Ammonia Total Protein 8.7 H Urine Blood MODERATE H Urine Nitrite POSITIVE H Urine Urobilinogen 4.0 H Ur Leukocyte Esterase LARGE H 05/10/19 05/11/19 05/11/19 23:35 12:13 12:13 RDW 19.3 H Potassium 3.3 L Chloride 97 L Carbon Dioxide 33 H Creatinine 0.48 L Glucose 172 H Calcium 10.3 H Magnesium Total Bilirubin 2.0 H Direct Bilirubin 1.0 H AST 41 H Alkaline Phosphatase 160 H Ammonia < 8.7 L Total Protein 8.7 H Urine Blood Urine Nitrite Urine Urobilinogen Ur Leukocyte Esterase 05/11/19 12:13 RDW Potassium Chloride Carbon Dioxide Creatinine Glucose Calcium Magnesium Total Bilirubin Direct Bilirubin AST Alkaline Phosphatase Ammonia < 8.7 L Total Protein Urine Blood Urine Nitrite Urine Urobilinogen Ur Leukocyte Esterase Discharge - Discharge Clinical Impression: New onset seizure, Low blood potassium, Low magnesium level Altered mental state Qualifiers: Altered mental status type: unspecified Qualified Code(s): R41.82 - Altered mental status, unspecified UTI (urinary tract infection) Qualifiers: Urinary tract infection type: site unspecified Hematuria presence: without hematuria Qualified Code(s): N39.0 - Urinary tract infection, site not specified Condition: Fair Disposition: [facility]
[2019-05-11 18:47] VITALS: BP 191/87
== END 2019-05-11 18:56 | disposition short-term general hospital (02) ==
LOC: ER 09:22
DX: N39.0 Urinary tract infection, site not specified (principal); R56.9 Unspecified convulsions; R41.82 Altered mental status, unspecified; E87.6 Hypokalemia; E83.42 Hypomagnesemia; I50.9 Heart failure, unspecified; I25.10 Atherosclerotic heart disease of native coronary artery without angina pectoris; E78.00 Pure hypercholesterolemia, unspecified; Z90.49 Acquired absence of other specified parts of digestive tract; I25.2 Old myocardial infarction
CPT/HCPCS: 93005; 36415; 87086; 80307 ×2; 82140; 83735; 84703; 85025; 85610; 87088; 80053; 81001; 73030; 70450; 93010; J1885; J2270; J3475; J3480; J0696 ×2; J1953; J3490; 51701; 87186; 96365; 96366; 96368; 96375; 99291

== ENCOUNTER 2019-06-06 18:28 | Emergency (ER) | payer OTHER ==
[2019-06-06] MEDS ORDERED: ASPIRIN 81 MG TABLET, CHEWABLE PO ONE (18:59)
[2019-06-06 19:01] VITALS: BP 199/116
--- NOTE | 2019-06-06 19:01 | ER Document Report ---
ED Medical Screen (RME) - General Stated Complaint: CHEST PAIN Time Seen by Provider: 06/06/19 18:58 Mode of Arrival: Wheelchair Information source: Patient Notes: Patient presents complaining of chest pain and shortness of breath this evening. Patient states she has had chest pain off and on recently. Patient denies any nausea vomiting cough or cold symptoms. Patient is poor historian. hx: [place], CHF, diabetes, hypertension, CVA I have greeted and performed a rapid initial assessment of this patient. A comprehensive ED assessment and evaluation of the patient, analysis of test results and completion of the medical decision making process will be conducted by additional ED providers. TRAVEL OUTSIDE OF THE [place] IN LAST 30 DAYS: No - Related Data Allergies/Adverse Reactions: No Known Allergies Allergy (Verified 11/25/18 18:21) Past Medical History - Past Medical History Cardiac Medical History: Reports: Hx Congestive Heart Failure, Hx Coronary Artery Disease, Hx Heart Attack, Hx Hypercholesterolemia, Hx Hypertension, Hx Heart Murmur Pulmonary Medical History: Denies: Hx Asthma, Hx COPD Neurological Medical History: Denies: Hx Seizures Endocrine Medical History: Reports: Hx Diabetes Mellitus Type 1, Hx Diabetes Mellitus Type 2. Denies: Hx Hyperthyroidism, Hx Hypothyroidism Renal/ Medical History: Denies: Hx Peritoneal Dialysis GI Medical History: Denies: Hx Cirrhosis, Hx Hepatitis Musculoskeltal Medical History: Denies Hx Arthritis, Denies Hx Gout Skin Medical History: Denies Hx Eczema, Denies Hx Psoriasis Psychiatric Medical History: Denies: Hx Depression Infectious Medical History: Denies: Hx Hepatitis Past Surgical History: Reports: Hx Cardiac Catheterization, Hx Cholecystectomy, Hx Coronary Stent - Immunizations Hx Diphtheria, Pertussis, Tetanus Vaccination: Yes Physical Exam - Vital signs Vitals: Temp Pulse Resp BP Pulse Ox 97.9 F 117 H 18 199/116 H 99 06/06/19 18:35 06/06/19 18:35 06/06/19 18:35 06/06/19 18:35 06/06/19 18:35 - Cardiovascular Rhythm: Tachycardia Heart sounds: S1 appreciated, S2 appreciated Murmur: Yes Course - Vital Signs Vital signs: Temp Pulse Resp BP Pulse Ox 97.9 F 117 H 18 199/116 H 99 06/06/19 18:35 06/06/19 18:35 06/06/19 18:35 06/06/19 18:35 06/06/19 18:35
--- NOTE | 2019-06-06 19:23 | RADIOLOGY REPORT (SQ) ---
EXAM DESCRIPTION: CHEST 2 VIEWS COMPLETED DATE/TIME: 06/06/2019 7:10 pm REASON FOR STUDY: cp COMPARISON: AP view of the chest from 02/25/2019 EXAM PARAMETERS: NUMBER OF VIEWS: two views TECHNIQUE: PA and lateral views of the chest were obtained. RADIATION DOSE: NA LIMITATIONS: none FINDINGS: LUNGS AND PLEURA: No consolidation, pleural effusion or pneumothorax. MEDIASTINUM AND HILAR STRUCTURES: No mediastinal or hilar contour abnormality. HEART AND VASCULAR STRUCTURES: Stable cardiomegaly. BONES: No acute findings. HARDWARE: Implantable cardiac device. OTHER: Cholecystectomy clips. IMPRESSION: Cardiomegaly without a superimposed acute cardiopulmonary process. TECHNICAL DOCUMENTATION: JOB ID: [id number] [employer]- All Rights Reserved Reading location - IP/workstation name: [email or web address]
[2019-06-06 20:05] LABS: ABSOLUTE EOSINOPHILS # (AUTO) 0.1 10^3/uL (0.0-0.6); ABSOLUTE LYMPHOCYTES (AUTO) 2.3 10^3/uL (0.5-4.7); ABSOLUTE MONOCYTES (AUTO) 0.4 10^3/uL (0.1-1.4); ABSOLUTE NEUT (AUTO) 4.1 10^3/uL (1.7-8.2); BASOPHILS % (AUTO) 0.7 % (0-2); HEMATOCRIT 36.8 % (36.0-47.0); HEMOGLOBIN 12.6 g/dL (12.0-15.5); LYMPHOCYTES % (AUTO) 32.8 % (13-45); MEAN CORPUSCULAR HGB CONC 34.3 g/dL (32.0-36.0); MONOCYTES % (AUTO) 5.3 % (3-13); PLATELET COUNT 343 10^3/uL (150-450); RED BLOOD COUNT 4.21 10^6/uL (3.72-5.28); RED CELL DISTRIBUTION WIDTH 18.6 % (11.5-14.0); SEGMENTED NEUTROPHILS % (AUTO) 59.2 % (42-78); TOTAL CELLS COUNTED % (AUTO) 100 %
[2019-06-06 20:17] LABS: MEAN CORPUSCULAR VOLUME 87 fl (80-97)
[2019-06-06 20:26] LABS: ALBUMIN 4.1 g/dL (3.5-5.0); ALKALINE PHOSPHATASE 113 U/L (38-126); ANION GAP 11 (5-19); ASPARTATE AMINO TRANSFERASE 26 U/L (14-36); BILIRUBIN,DIRECT 0.4 mg/dL (0.0-0.4); BLOOD UREA NITROGEN 10 mg/dL (7-20); CALCIUM 9.8 mg/dL (8.4-10.2); CARBON DIOXIDE 31 mmol/L (22-30); CHLORIDE 100 mmol/L (98-107); GLUCOSE 284 mg/dL (75-110); POTASSIUM 3.2 mmol/L (3.6-5.0)
[2019-06-06 20:34] LABS: TROPONIN I 0.027 ng/mL
--- NOTE | 2019-06-06 23:27 | EKG REPORT ---
SEVERITY:- ABNORMAL ECG - SINUS TACHYCARDIA VENTRICULAR PREMATURE COMPLEX PROBABLE LEFT VENTRICULAR HYPERTROPHY BORDERLINE PROLONGED QT INTERVAL : Confirmed by: Marin Pulido MD 06-Jun-2019 23:26:20
== END 2019-06-06 21:57 | disposition left against medical advice (07) ==
LOC: ER 18:28
DX: R07.9 Chest pain, unspecified (principal); R06.02 Shortness of breath; I10 Essential (primary) hypertension; I25.10 Atherosclerotic heart disease of native coronary artery without angina pectoris; I25.2 Old myocardial infarction; E11.9 Type 2 diabetes mellitus without complications; Z95.5 Presence of coronary angioplasty implant and graft; Z53.20 Procedure and treatment not carried out because of patient's decision for unspecified reasons
CPT/HCPCS: 36415; 71046; 80053; 83880; 84484; 85025; 93005; 93010; 99281; 99285

== ENCOUNTER 2019-07-17 15:39 | Emergency (ER) | payer OTHER ==
[2019-07-17 15:48] VITALS: BP 161/114
--- NOTE | 2019-07-17 16:02 | ER Document Report ---
ED Medical Screen (RME) - General Chief Complaint: Abdominal Pain Stated Complaint: ABDOMINAL PAIN Time Seen by Provider: 07/17/19 15:49 Mode of Arrival: Wheelchair Information source: Relative Cannot obtain history due to: Other - Patient with history of stroke Notes: Patient presents with son who states that patient's had left-sided abdominal pain for the past 10 days. Patient has not had any nausea vomiting or diarrhea, no urinary symptoms. Patient is primary historian is patient previously has had a stroke and her speech is typically garbled per her son. Patient also has a history of hypertension diabetes and congestive heart failure. I have greeted and performed a rapid initial assessment of this patient. A comprehensive ED assessment and evaluation of the patient, analysis of test results and completion of the medical decision making process will be conducted by additional ED providers. TRAVEL OUTSIDE OF THE [place] IN LAST 30 DAYS: No - Related Data Allergies/Adverse Reactions: No Known Allergies Allergy (Verified 07/17/19 15:50) Past Medical History - Past Medical History Cardiac Medical History: Reports: Hx Congestive Heart Failure, Hx Coronary Artery Disease, Hx Heart Attack, Hx Hypercholesterolemia, Hx Hypertension, Hx Heart Murmur Pulmonary Medical History: Denies: Hx Asthma, Hx COPD Neurological Medical History: Denies: Hx Seizures Endocrine Medical History: Reports: Hx Diabetes Mellitus Type 1, Hx Diabetes Mellitus Type 2. Denies: Hx Hyperthyroidism, Hx Hypothyroidism Renal/ Medical History: Denies: Hx Peritoneal Dialysis GI Medical History: Denies: Hx Cirrhosis, Hx Hepatitis Musculoskeltal Medical History: Denies Hx Arthritis, Denies Hx Gout Skin Medical History: Denies Hx Eczema, Denies Hx Psoriasis Psychiatric Medical History: Denies: Hx Depression Infectious Medical History: Denies: Hx Hepatitis Past Surgical History: Reports: Hx Cardiac Catheterization, Hx Cholecystectomy, Hx Coronary Stent - Immunizations Hx Diphtheria, Pertussis, Tetanus Vaccination: Yes Physical Exam - Vital signs Vitals: Pulse Resp BP Pulse Ox 107 H 18 161/114 H 100 07/17/19 15:44 07/17/19 15:44 07/17/19 15:44 07/17/19 15:44 - Abdominal Tenderness: Tender - Left side abdominal tenderness Course - Vital Signs Vital signs: Temp Pulse Resp BP Pulse Ox 107 H 18 161/114 H 100 07/17/19 15:44 07/17/19 15:44 07/17/19 15:44 07/17/19 15:44
[2019-07-17] MEDS ORDERED: NORMAL SALINE 1000 ML 500 ML IV ONE (17:43)
[2019-07-17] MEDS ORDERED: AMLODIPINE BESYLATE 10 MG TABLET PO ONE (17:44)
[2019-07-17] MEDS ORDERED: ONDANSETRON HCL INJ/PF 4 MG/2 ML SDV IV ONE (17:45)
[2019-07-17] MEDS ORDERED: HYDROCHLOROTHIAZIDE 12.5 MG TABLET PO ONE (17:45)
--- NOTE | 2019-07-17 17:51 | ER Document Report ---
ED GI/ - General Chief Complaint: Abdominal Pain Stated Complaint: ABDOMINAL PAIN Time Seen by Provider: 07/17/19 15:49 Mode of Arrival: Wheelchair Notes: CHIEF COMPLAINT: Left lower quadrant abdominal pain HPI: 49-year-old female with history of diabetes, hypertension, CVA, right hemiparesis presenting to the emergency department with 1.5 weeks of left lower quadrant discomfort. History is obtained from the patient and the son. Son indicates patient is also had constipation over the last 1.5 weeks. Has had occasional dry heaving over the last 1.5 weeks. They have not seen the PCP for evaluation of symptoms. Patient has not had a fever. Son indicates the patient normally wears a diaper and is incontinent of urine after the stroke. Patient points to the left lower quadrant region as the site of her discomfort. ROS: See HPI - all other systems were reviewed and are otherwise negative Constitutional: no fever Eyes: no drainage, no blurred vision ENT: no runny nose, no sore throat Cardiovascular: no chest pain Resp: no SOB, no cough GI: no vomiting, no diarrhea, + abdominal pain, positive constipation, positive nausea : no dysuria Integumentary: no rash Allergy: no hives Musculoskeletal: no extremity pain or swelling Neurological: no numbness/tingling MEDICATIONS: I agree with the patient medications as charted by the RN. ALLERGIES: I agree with the allergies as charted by the RN. PAST MEDICAL HISTORY/PAST SURGICAL HISTORY: Reviewed and agree as charted by RN. SOCIAL HISTORY: Reviewed and agree as charted by RN. FAMILY HISTORY: No significant familial comorbid conditions directly related to patient complaint EXAM: Reviewed vital signs as charted by RN. CONSTITUTIONAL: Alert and oriented and responds appropriately to questions. Well-appearing; well-nourished. Patient does answer questions HEAD: Normocephalic; atraumatic EYES: PERRL; Conjunctivae clear, sclerae non-icteric ENT: normal nose; no rhinorrhea; moist mucous membranes; pharynx without lesions noted NECK: Supple without meningismus; non-tender; no cervical lymphadenopathy, no masses CARD: Mild tachycardia; no murmurs, no clicks, no rubs, no gallops; symmetric distal pulses RESP: Normal chest excursion without splinting or tachypnea; breath sounds clear and equal bilaterally; no wheezes, no rhonchi, no rales, pulse oximetry 100% on room air not hypoxic ABD/GI: Normal bowel sounds; non-distended; soft, mild tenderness in the left lower quadrant region on palpation, no rebound, no guarding; no palpable organomegaly or masses. BACK: The back appears normal and is non-tender to palpation, there is no CVA tenderness EXT: Limited movement of the right upper and lower extremity on exam SKIN: Normal color for age and race; warm; dry; good turgor; no acute lesions noted NEURO: Right hemiparesis noted with limited movement PSYCH: The patient's mood and manner are appropriate. Grooming and personal hygiene are appropriate. Patient does answer questions without significant difficulty although lacks some insight into more difficult questions MDM: 49-year-old female presenting for left lower quadrant pain for 1.5 weeks with constipation. She is not febrile. Patient is not a good historian, does answer some simple questions but has more difficulty with more complicated questions. Son providing additional history, has a complex medical history. Screening labs ordered in triage process. Will add CT imaging, given the patient's BMI will have to trial oral contrast if possible. This may be simple constipation but differential is large at this time given the difficulty the patient has giving accurate history TRAVEL OUTSIDE OF THE [place] IN LAST 30 DAYS: No - Related Data Allergies/Adverse Reactions: No Known Allergies Allergy (Verified 07/17/19 15:50) Past Medical History - General Information source: Relative - Social History Smoking Status: Never Smoker Family History: Reviewed & Not Pertinent, Other Patient has suicidal ideation: No Patient has homicidal ideation: No - Past Medical History Cardiac Medical History: Reports: Hx Congestive Heart Failure, Hx Coronary Artery Disease, Hx Heart Attack, Hx Hypercholesterolemia, Hx Hypertension, Hx Heart Murmur Pulmonary Medical History: Denies: Hx Asthma, Hx COPD Neurological Medical History: Denies: Hx Seizures Endocrine Medical History: Reports: Hx Diabetes Mellitus Type 1, Hx Diabetes Mellitus Type 2. Denies: Hx Hyperthyroidism, Hx Hypothyroidism Renal/ Medical History: Denies: Hx Peritoneal Dialysis GI Medical History: Denies: Hx Cirrhosis, Hx Hepatitis Musculoskeletal Medical History: Denies Hx Arthritis, Denies Hx Gout Skin Medical History: Denies Hx Eczema, Denies Hx Psoriasis Psychiatric Medical History: Denies: Hx Depression Infectious Medical History: Denies: Hx Hepatitis Past Surgical History: Reports: Hx Cardiac Catheterization, Hx Cholecystectomy, Hx Coronary Stent - Immunizations Hx Diphtheria, Pertussis, Tetanus Vaccination: Yes Physical Exam - Vital signs Vitals: Pulse Resp BP Pulse Ox 107 H 18 161/114 H 100 07/17/19 15:44 07/17/19 15:44 07/17/19 15:44 07/17/19 15:44 Course - Re-evaluation Re-evalutation: 07/17/19 21:46 Patient imaging studies show a right lower lobe pneumonia. Moderate constipation. She also has a UTI. Rocephin will cover both the UTI and the pneumonia. Patient with cardiomegaly and some vascular congestion but has a history of heart failure. Son indicates that she does have a lead inspector although he does not remember the name. Patient will need close follow-up with primary care provider regarding the pneumonia and UTI. I will place the patient on Levaquin which will cover both pneumonia and UTI. Patient will also need to follow-up closely with her lead inspector regarding her cardiomegaly. Strict return instructions were discussed - Vital Signs Vital signs: Temp Pulse Resp BP Pulse Ox 107 H 18 161/114 H 100 07/17/19 15:44 07/17/19 15:44 07/17/19 15:44 07/17/19 15:44 - Laboratory Result Diagrams: 07/17/19 18:50 07/17/19 18:50 Laboratory results interpreted by me: 07/17/19 07/17/19 07/17/19 18:25 18:50 18:50 RBC 3.70 L Hgb 11.0 L Hct 33.3 L RDW 14.5 H Sodium 133.1 L Chloride 97 L Glucose 143 H Total Bilirubin 2.3 H Direct Bilirubin 0.8 H AST 66 H Alkaline Phosphatase 231 H Albumin 3.4 L Urine Protein >=500 H Urine Blood SMALL H Urine Bilirubin SMALL H Urine Urobilinogen 4.0 H Ur Leukocyte Esterase SMALL H Discharge - Discharge Clinical Impression: Abdominal pain, lower, Cardiomegaly Pneumonia Qualifiers: Pneumonia type: due to unspecified organism Laterality: right Lung location: lower lobe of lung Qualified Code(s): J18.9 - Pneumonia, unspecified organism UTI (urinary tract infection) Qualifiers: Urinary tract infection type: acute cystitis Hematuria presence: without hematuria Qualified Code(s): N30.00 - Acute cystitis without hematuria Constipation Qualifiers: Constipation type: unspecified constipation type Qualified Code(s): K59.00 - Constipation, unspecified Condition: Stable Disposition: HOME, SELF-CARE Additional Instructions: Take the antibiotics to treat both urinary infection and the pneumonia. Follow- up closely with your primary care provider for reevaluation of symptoms in the next 1 to 2 days call for appointment. If you do not have a primary care provider follow-up with the referral provider. It was noticed on your imaging studies today that your heart is more enlarged than on our last imaging studies, this requires close follow-up with your lead inspector for further management please call them tomorrow to obtain appointment. Take the laxatives as prescribed to help prevent further constipation issues. If you develop fever greater than 101 or worsening symptoms please return for reevaluation as discussed Prescriptions: Bisacodyl [Dulcolax] 5 mg PO DAILY #7 tablet. Levofloxacin [Levaquin 750 mg Tablet] 750 mg PO DAILY #10 tablet Referrals: ANNE MALDONADO MD [[facility]UNITY BASED STAFF] - Follow up as needed
[2019-07-17 18:47] LABS: AMORPHOUS SEDIMENT,URINE TRACE /HPF; APPEARANCE,URINE SLIGHTLY-CLOUDY; BILIRUBIN,URINE SMALL (NEGATIVE); COLOR,URINE AMBER; GLUCOSE, URINE NEGATIVE (NEGATIVE); KETONES,URINE NEGATIVE (NEGATIVE); LEUKOCYTE ESTERASE,URINE SMALL (NEGATIVE); NITRITE,URINE NEGATIVE (NEGATIVE); PROTEIN,URINE >=500 mg/dL (NEGATIVE); URINE SPECIFIC GRAVITY 1.018
[2019-07-17 19:09] LABS: ABSOLUTE LYMPHOCYTES (AUTO) 2.4 10^3/uL (0.5-4.7); ABSOLUTE MONOCYTES (AUTO) 0.4 10^3/uL (0.1-1.4); ABSOLUTE NEUT (AUTO) 3.9 10^3/uL (1.7-8.2); BASOPHILS % (AUTO) 0.6 % (0-2); EOSINOPHILS % (AUTO) 0.2 % (0-6); HEMATOCRIT 33.3 % (36.0-47.0); LYMPHOCYTES % (AUTO) 35.7 % (13-45); MEAN CORPUSCULAR HEMOGLOBIN 29.7 pg (27.0-33.4); MEAN CORPUSCULAR VOLUME 90 fl (80-97); MONOCYTES % (AUTO) 6.1 % (3-13); PLATELET COUNT 292 10^3/uL (150-450); RED CELL DISTRIBUTION WIDTH 14.5 % (11.5-14.0); SEGMENTED NEUTROPHILS % (AUTO) 57.4 % (42-78); TOTAL CELLS COUNTED % (AUTO) 100 %; WHITE BLOOD COUNT 6.8 10^3/uL (4.0-10.5)
[2019-07-17 19:28] LABS: ALBUMIN 3.4 g/dL (3.5-5.0); ALKALINE PHOSPHATASE 231 U/L (38-126); ANION GAP 11 (5-19); ASPARTATE AMINO TRANSFERASE 66 U/L (14-36); BILIRUBIN,DIRECT 0.8 mg/dL (0.0-0.4); BILIRUBIN,TOTAL 2.3 mg/dL (0.2-1.3); BLOOD UREA NITROGEN 13 mg/dL (7-20); CALCIUM 9.6 mg/dL (8.4-10.2); CARBON DIOXIDE 25 mmol/L (22-30); CHLORIDE 97 mmol/L (98-107); GLUCOSE 143 mg/dL (75-110); POTASSIUM 4.1 mmol/L (3.6-5.0); TOTAL PROTEIN 7.7 g/dL (6.3-8.2)
--- NOTE | 2019-07-17 21:40 | RADIOLOGY REPORT (SQ) ---
EXAM DESCRIPTION: CT ABDOMEN PELVIS WITH IV CONTRAST COMPLETED DATE/TME: 07/17/2019 00:00 CLINICAL HISTORY: 49 years, Female, LLQ pain COMPARISON: February 26, 2019 TECHNIQUE: Images stored on PACS. All CT scanners at this facility use dose modulation, iterative reconstruction, and/or weight based dosing when appropriate to reduce radiation dose to as low as reasonably achievable (ALARA). [facility]: Dose Right [facility]: CareDose [facility]: Dose Right [facility]: Teradose 4D [facility]: Smart Align Technology LIMITATIONS: None. FINDINGS: The lung bases demonstrate patchy airspace disease right lower lobe, new from prior. Progressive pleural effusions right greater than left. These are still small. The heart is enlarged and appears larger than it did in January of last year. Hepatic steatosis is identified. Reflux of contrast into inferior vena cava and hepatic veins. These are distended. These findings are suspicious for right heart dysfunction. Gallbladder surgically absent. The pancreas is atrophied. Spleen appears grossly normal. The adrenals and kidneys are unremarkable. No urolithiasis. Trace free fluid within the pelvis. Mild third spacing of fluid with anasarca. This is similar to prior. The bowel is nonobstructed. Dense barium is seen within the right hemicolon. No high-grade obstruction. No free air. Fecal impaction within the rectum. The visualized bones are unremarkable IMPRESSION: Progressive patchy airspace disease right lower lobe suspicious for pneumonia. Progressive small pleural effusions right greater than left. The heart is markedly enlarged with secondary signs of right heart dysfunction. Hepatic steatosis. Mild global third spacing of fluid with mild anasarca and ascites. No high-grade bowel obstruction. Significant hard stool within the colon. No focal process left lower quadrant is identified TECHNICAL DOCUMENTATION: Quality ID # [id number]: Final reports with documentation of one or more dose reduction techniques (e.g., Automated exposure control, adjustment of the mA and/or kV according to patient size, use of iterative reconstruction technique) copyright 2011 [employer]- All Rights Reserved
[2019-07-17] MEDS ORDERED: MINERAL OIL 30 ML UDCUP PR ONE (21:42)
[2019-07-17] MEDS ORDERED: CEFTRIAXONE 1 GM/D5W RTU 1 GM/50 ML RTUPB IV ONE (22:00)
--- NOTE | 2019-07-17 22:05 | RADIOLOGY REPORT (SQ) ---
Chest 2 view on 07/17/2019 at 9:41 PM CLINICAL INDICATION: Pneumonia COMPARISON: 06/06/2019 FINDINGS: There is new enlargement of the cardiac silhouette consistent with cardiomegaly and/or pericardial effusion. Implantable cardiac recording device is noted in the left anterior chest wall. There is mild elevation of the right hemidiaphragm. There is mild right lower lung opacity suggesting early right lower lobe pneumonia. Lungs are otherwise clear. Pulmonary vascularity is within normal limits. IMPRESSION: Probable early right lower lobe pneumonia.
== END 2019-07-17 22:58 | disposition home or self-care (01) ==
LOC: ER 15:39
DX: K59.00 Constipation, unspecified (principal); J18.9 Pneumonia, unspecified organism; N30.00 Acute cystitis without hematuria; R00.0 Tachycardia, unspecified; I11.9 Hypertensive heart disease without heart failure; R11.0 Nausea; R10.32 Left lower quadrant pain; E11.9 Type 2 diabetes mellitus without complications; I25.10 Atherosclerotic heart disease of native coronary artery without angina pectoris; I10 Essential (primary) hypertension; I69.351 Hemiplegia and hemiparesis following cerebral infarction affecting right dominant side; R32 Unspecified urinary incontinence
CPT/HCPCS: 99284; 96361; 96375; 96365; 36415; 83690; 85025; 80053; 81001; 71046; 74177; J2405; J7030; J0696

== ENCOUNTER 2019-07-29 14:10 | Emergency (ER) | payer MEDICAID, OTHER ==
[2019-07-29 15:06] VITALS: BP 169/115
--- NOTE | 2019-07-29 15:21 | ER Document Report ---
ED Medical Screen (RME) - General Chief Complaint: Abdominal Pain Stated Complaint: SWOLLEN EXTREMITIES Time Seen by Provider: 07/29/19 15:09 Notes: Patient is a 49-year-old male with a history of congestive heart failure cardiomegaly, CVA, hypertension, diabetes and "liver issues," who presents the emergency department with a chief complaint of swelling and abdominal pain. Patient is a very poor historian as well as the son. He states that he noticed swelling to her face, hands and legs and abdomen. He reports she does have a history of liver issues but is not sure what they are. She is currently being treated on Levaquin for recent pneumonia and UTI. Patient is normally incontinent. Denies fever. Denies alcohol use, recreational drug use to include IV drug use denies smoking cigarettes. Reports the patient appears more jaundiced. Vomited bile once yesterday. TRAVEL OUTSIDE OF THE [place] IN LAST 30 DAYS: No - Related Data Allergies/Adverse Reactions: No Known Allergies Allergy (Verified 07/29/19 15:06) Past Medical History - Social History Frequency of alcohol use: None Drug Abuse: None - Past Medical History Cardiac Medical History: Reports: Hx Congestive Heart Failure, Hx Coronary Artery Disease, Hx Heart Attack, Hx Hypercholesterolemia, Hx Hypertension, Hx Heart Murmur Pulmonary Medical History: Denies: Hx Asthma, Hx COPD Neurological Medical History: Denies: Hx Seizures Endocrine Medical History: Reports: Hx Diabetes Mellitus Type 1, Hx Diabetes Mellitus Type 2. Denies: Hx Hyperthyroidism, Hx Hypothyroidism Renal/ Medical History: Denies: Hx Peritoneal Dialysis GI Medical History: Denies: Hx Cirrhosis, Hx Hepatitis Musculoskeltal Medical History: Denies Hx Arthritis, Denies Hx Gout Skin Medical History: Denies Hx Eczema, Denies Hx Psoriasis Psychiatric Medical History: Denies: Hx Depression Infectious Medical History: Denies: Hx Hepatitis Past Surgical History: Reports: Hx Cardiac Catheterization, Hx Cholecystectomy, Hx Coronary Stent - Immunizations Hx Diphtheria, Pertussis, Tetanus Vaccination: Yes Physical Exam - Vital signs Vitals: Temp Pulse Resp BP Pulse Ox 97.8 F 106 H 16 169/115 H 99 07/29/19 15:04 07/29/19 15:04 07/29/19 15:04 07/29/19 15:04 07/29/19 15:04 - Abdominal Inspection: Normal Distension: No distension Bowel sounds: Hyperactive Tenderness: Tender - left upper quadrant Course - Re-evaluation Re-evalutation: 07/29/19 15:20 We will obtain basic labs and obtain abdominal ultrasound. Patient did have a CT scan within the past few weeks here in the emergency department. Will repeat chest x-ray to check resolution of pneumonia as well as a urinalysis. Patient nontoxic-appearing at this time. Patient does appear jaundiced. I have greeted and performed a rapid initial assessment of this patient. A comprehensive ED assessment and evaluation of the patient, analysis of test results and completion of the medical decision making process will be conducted by additional ED providers. - Vital Signs Vital signs: Temp Pulse Resp BP Pulse Ox 97.8 F 106 H 16 169/115 H 99 07/29/19 15:04 07/29/19 15:04 07/29/19 15:04 07/29/19 15:04 07/29/19 15:04
--- NOTE | 2019-07-29 16:45 | RADIOLOGY REPORT (SQ) ---
EXAM DESCRIPTION: U/S ABDOMEN COMPLETE W/DOPPLER COMPLETED DATE/TIME: 07/29/2019 4:19 pm REASON FOR STUDY: left upper pain, hx "liver issues" COMPARISON: CT abdomen pelvis 07/17/2019, 02/26/2019 Abdominal ultrasound 02/25/2019 TECHNIQUE: Dynamic and static grayscale images acquired of the abdomen and recorded on PACS. Additio nal selected color Doppler and spectral images recorded. Note: Study does not meet criteria for complete doppler/duplex scan LIMITATIONS: Bowel gas, body habitus FINDINGS: PANCREAS: Not visualized LIVER: The hypoechoic likely reflecting hepatitis. No biliary ductal dilatation. No masses LIVER VASCULATURE: Normal directional flow of the main portal vein and hepatic veins. GALLBLADDER: Surgically absent ULTRASOUND-DETECTED ALMAZAN'S SIGN: Not applicable INTRAHEPATIC DUCTS AND COMMON DUCT: CBD and intrahepatic ducts normal caliber. No filling defects. D istal common duct not well seen due to duodenum gas INFERIOR VENA CAVA: Normal flow. AORTA: No aneurysm. RIGHT KIDNEY: Normal size. Normal echogenicity. No solid or suspicious masses. No hydronephros is. No calcifications. LEFT KIDNEY: Normal size. Normal echogenicity. No solid or suspicious masses. No hydronephrosi s. No calcifications. SPLEEN: Normal size. No solid masses. PERITONEAL AND PLEURAL SPACES: Trace right upper quadrant free fluid. OTHER: No other significant finding. IMPRESSION: Post cholecystectomy Hypoechoic liver from the diffuse inflammation/hepatitis Trace right upper quadrant free fluid TECHNICAL DOCUMENTATION: JOB ID: [id number] [employer] All Rights Reserved Reading location - IP/workstation name: [email or web address]
--- NOTE | 2019-07-29 16:53 | RADIOLOGY REPORT (SQ) ---
EXAM DESCRIPTION: CHEST 2 VIEWS COMPLETED DATE/TIME: 07/29/2019 4:26 pm REASON FOR STUDY: recent pneumonia COMPARISON: AP and lateral views of the chest from 07/17/2019. EXAM PARAMETERS: NUMBER OF VIEWS: Two views. TECHNIQUE: PA and lateral views of the chest were obtained.. RADIATION DOSE: NA LIMITATIONS: none FINDINGS: LUNGS AND PLEURA: Pleural and parenchymal opacities in the inferior right hemithorax that have increased compared to the radiograph from 07/17/2019 and could represent a combination of pleural fluid, atelectasis and/or consolidation MEDIASTINUM AND HILAR STRUCTURES: No mediastinal or hilar contour abnormality. HEART AND VASCULAR STRUCTURES: Stable cardiomegaly. BONES: No acute findings. HARDWARE: Implantable cardiac monitoring device in the left hemithorax. OTHER: No other finding. IMPRESSION: 1. Pleural and parenchymal opacities in the inferior right hemithorax that have increase d compared in the interval and could represent a combination of pleural fluid, atelectasis and/or pne umonia. 2. Cardiomegaly without pulmonary edema. TECHNICAL DOCUMENTATION: JOB ID: [id number] [employer]- All Rights Reserved Reading location - IP/workstation name: [email or web address]
[2019-07-29 16:54] LABS: ABSOLUTE LYMPHOCYTES (AUTO) 1.7 10^3/uL (0.5-4.7); ABSOLUTE MONOCYTES (AUTO) 0.4 10^3/uL (0.1-1.4); ABSOLUTE NEUT (AUTO) 5.8 10^3/uL (1.7-8.2); BASOPHILS % (AUTO) 0.6 % (0-2); HEMATOCRIT 34.5 % (36.0-47.0); HEMOGLOBIN 11.5 g/dL (12.0-15.5); LYMPHOCYTES % (AUTO) 21.6 % (13-45); MEAN CORPUSCULAR HGB CONC 33.2 g/dL (32.0-36.0); MEAN CORPUSCULAR VOLUME 87 fl (80-97); MONOCYTES % (AUTO) 5.5 % (3-13); PLATELET COUNT 346 10^3/uL (150-450); RED BLOOD COUNT 3.95 10^6/uL (3.72-5.28); RED CELL DISTRIBUTION WIDTH 15.6 % (11.5-14.0); SEGMENTED NEUTROPHILS % (AUTO) 72.3 % (42-78); TOTAL CELLS COUNTED % (AUTO) 100 %
[2019-07-29 17:15] LABS: ALBUMIN 3.3 g/dL (3.5-5.0); ALKALINE PHOSPHATASE 214 U/L (38-126); ANION GAP 12 (5-19); ASPARTATE AMINO TRANSFERASE 72 U/L (14-36); BILIRUBIN,DIRECT 1.7 mg/dL (0.0-0.4); BILIRUBIN,TOTAL 3.1 mg/dL (0.2-1.3); BLOOD UREA NITROGEN 17 mg/dL (7-20); CARBON DIOXIDE 24 mmol/L (22-30); CHLORIDE 98 mmol/L (98-107); GLUCOSE 147 mg/dL (75-110); POTASSIUM 3.9 mmol/L (3.6-5.0)
== END 2019-07-29 18:58 | disposition left against medical advice (07) ==
LOC: ER 14:10
DX: R10.9 Unspecified abdominal pain (principal); R22.0 Localized swelling, mass and lump, head; M79.89 Other specified soft tissue disorders; R19.00 Intra-abdominal and pelvic swelling, mass and lump, unspecified site; J18.9 Pneumonia, unspecified organism; N39.0 Urinary tract infection, site not specified; R11.14 Bilious vomiting; I10 Essential (primary) hypertension; E11.9 Type 2 diabetes mellitus without complications; I25.10 Atherosclerotic heart disease of native coronary artery without angina pectoris; Z53.20 Procedure and treatment not carried out because of patient's decision for unspecified reasons
CPT/HCPCS: 36415; 71046; 76700; 80053; 83690; 85025; 93976; 99281

== ENCOUNTER 2019-08-08 12:46 | Inpatient (IN) | payer MEDICAID, OTHER ==
--- NOTE | 2019-08-08 14:12 | ER Document Report ---
ED Medical Screen (RME) - General Chief Complaint: Leg Swelling Stated Complaint: LEG SWELLING Time Seen by Provider: 08/08/19 14:00 Mode of Arrival: Wheelchair Information source: Patient, Relative Notes: Patient presents with leg swelling bilaterally. Patient's son states that patient has this chronically although it seems to have worsened over the past week. Patient has had some difficulty breathing as well. Patient is poor historian and son answers majority of the questions. Patient does have a history of previous CVA with right-sided weakness, hypertension and diabetes. I have greeted and performed a rapid initial assessment of this patient. A comprehensive ED assessment and evaluation of the patient, analysis of test results and completion of the medical decision making process will be conducted by additional ED providers. TRAVEL OUTSIDE OF THE [place] IN LAST 30 DAYS: No - Related Data Allergies/Adverse Reactions: No Known Allergies Allergy (Verified 08/08/19 14:00) Home Medications: insulin Past Medical History - Social History Chew tobacco use (# tins/day): No Frequency of alcohol use: None Drug Abuse: None - Past Medical History Cardiac Medical History: Reports: Hx Congestive Heart Failure, Hx Coronary Artery Disease, Hx Heart Attack, Hx Hypercholesterolemia, Hx Hypertension, Hx Heart Murmur Pulmonary Medical History: Denies: Hx Asthma, Hx COPD Neurological Medical History: Denies: Hx Seizures Endocrine Medical History: Reports: Hx Diabetes Mellitus Type 1, Hx Diabetes Mellitus Type 2. Denies: Hx Hyperthyroidism, Hx Hypothyroidism Renal/ Medical History: Denies: Hx Peritoneal Dialysis GI Medical History: Denies: Hx Cirrhosis, Hx Hepatitis Musculoskeltal Medical History: Denies Hx Arthritis, Denies Hx Gout Skin Medical History: Denies Hx Eczema, Denies Hx Psoriasis Psychiatric Medical History: Denies: Hx Depression Infectious Medical History: Denies: Hx Hepatitis Past Surgical History: Reports: Hx Cardiac Catheterization, Hx Cholecystectomy, Hx Coronary Stent - Immunizations Hx Diphtheria, Pertussis, Tetanus Vaccination: Yes Physical Exam - Vital signs Vitals: Temp Pulse Resp BP Pulse Ox 97.4 F 110 H 16 160/110 H 97 08/08/19 13:06 08/08/19 13:06 08/08/19 13:06 08/08/19 13:06 08/08/19 13:06 - General Notes: 3+ edema bilateral lower extremities - Respiratory Respiratory status: No respiratory distress Breath sounds: Other - dim to RLL Course - Vital Signs Vital signs: Temp Pulse Resp BP Pulse Ox 97.4 F 110 H 16 160/110 H 97 08/08/19 13:06 08/08/19 13:06 08/08/19 13:06 08/08/19 13:06 08/08/19 13:06
[2019-08-08 15:16] LABS: ABSOLUTE LYMPHOCYTES (AUTO) 2.2 10^3/uL (0.5-4.7); ABSOLUTE MONOCYTES (AUTO) 0.4 10^3/uL (0.1-1.4); ABSOLUTE NEUT (AUTO) 3.4 10^3/uL (1.7-8.2); BASOPHILS % (AUTO) 0.7 % (0-2); EOSINOPHILS % (AUTO) 0.3 % (0-6); HEMATOCRIT 32.1 % (36.0-47.0); HEMOGLOBIN 10.7 g/dL (12.0-15.5); LYMPHOCYTES % (AUTO) 36.2 % (13-45); MEAN CORPUSCULAR HEMOGLOBIN 28.5 pg (27.0-33.4); MEAN CORPUSCULAR HGB CONC 33.5 g/dL (32.0-36.0); MEAN CORPUSCULAR VOLUME 85 fl (80-97); MONOCYTES % (AUTO) 6.8 % (3-13); PLATELET COUNT 326 10^3/uL (150-450); RED BLOOD COUNT 3.76 10^6/uL (3.72-5.28); TOTAL CELLS COUNTED % (AUTO) 100 %
[2019-08-08 15:30] LABS: ALBUMIN 3.1 g/dL (3.5-5.0); ALKALINE PHOSPHATASE 215 U/L (38-126); ANION GAP 11 (5-19); ASPARTATE AMINO TRANSFERASE 33 U/L (14-36); BILIRUBIN,TOTAL 1.7 mg/dL (0.2-1.3); BLOOD UREA NITROGEN 14 mg/dL (7-20); CALCIUM 8.5 mg/dL (8.4-10.2); CARBON DIOXIDE 24 mmol/L (22-30); CHLORIDE 100 mmol/L (98-107); GLUCOSE 124 mg/dL (75-110); POTASSIUM 3.5 mmol/L (3.6-5.0); TOTAL PROTEIN 7.8 g/dL (6.3-8.2)
--- NOTE | 2019-08-08 15:41 | ER Document Report ---
ED General - General Chief Complaint: Leg Swelling Stated Complaint: LEG SWELLING Time Seen by Provider: 08/08/19 14:00 Mode of Arrival: Wheelchair Notes: HPI: Patient is a 49-year-old female with past medical history as recorded including a history of a stroke with right-sided weakness, diabetes, liver "problems", congestive heart failure, diabetes, who presents today with increased swelling of bilateral lower extremities with pain to bilateral feet. She denies any chest pain, abdominal pain, shortness of breath, runny nose, congestion, cough, or fevers. It appears that the patient was here around 11 days ago with a triage note with an ultrasound showing inflammation of the liver. There was also an x-ray of the chest performed. However there was no provider note. Patient states they left without being seen. Patient has a history gallbladder removal. Patient was admitted in September 2018 secondary to a repeat stroke with hypertensive emergency and acute on chronic heart failure with elevated liver enzymes. ROS: See HPI All other review of systems reviewed and otherwise negative Reviewed vital signs and nursing note as charted by RN. PHYSICAL EXAM: CONSTITUTIONAL: Alert and oriented and responds appropriately to questions. Well-appearing; well-nourished HEAD: Normocephalic; atraumatic EYES: PERRL; Conjunctivae clear, sclerae icteric ENT: Normal nose; no rhinorrhea; moist mucous membranes; pharynx without lesions noted NECK: Supple without meningismus; non-tender; no cervical lymphadenopathy, no masses CARD: Tachycardic and regular; 4 out of 6 systolic murmur heard best at the left sternal border; symmetric distal pulses RESP: Normal chest excursion without splinting or tachypnea; breath sounds clear and equal bilaterally; no wheezes, no rhonchi, no rales ABD/GI: Normal bowel sounds; distended with no obvious fluid wave with no tenderness to palpation; no palpable organomegaly or masses BACK: The back appears normal and is non-tender to palpation EXT: Normal ROM in all joints; non-tender to palpation; 2+ pitting edema to bilateral shins and feet SKIN: No acute lesions noted NEURO: CN 2-12 intact; weakness of the right arm and right leg at baseline PSYCH: The patient's mood and manner are appropriate. Grooming and personal hygiene are appropriate. TRAVEL OUTSIDE OF THE [place] IN LAST 30 DAYS: No - Related Data Allergies/Adverse Reactions: No Known Allergies Allergy (Verified 08/08/19 14:00) Home Medications: insulin Past Medical History - General Information source: Patient, Relative - Social History Smoking Status: Never Smoker Chew tobacco use (# tins/day): No Frequency of alcohol use: None Drug Abuse: None Family History: Reviewed & Not Pertinent, Other Patient has suicidal ideation: No Patient has homicidal ideation: No - Past Medical History Cardiac Medical History: Reports: Hx Congestive Heart Failure, Hx Coronary Artery Disease, Hx Heart Attack, Hx Hypercholesterolemia, Hx Hypertension, Hx Heart Murmur Pulmonary Medical History: Denies: Hx Asthma, Hx COPD Neurological Medical History: Denies: Hx Seizures Endocrine Medical History: Reports: Hx Diabetes Mellitus Type 1, Hx Diabetes Mellitus Type 2. Denies: Hx Hyperthyroidism, Hx Hypothyroidism Renal/ Medical History: Denies: Hx Peritoneal Dialysis GI Medical History: Denies: Hx Cirrhosis, Hx Hepatitis Musculoskeletal Medical History: Denies Hx Arthritis, Denies Hx Gout Skin Medical History: Denies Hx Eczema, Denies Hx Psoriasis Psychiatric Medical History: Denies: Hx Depression Infectious Medical History: Denies: Hx Hepatitis Past Surgical History: Reports: Hx Cardiac Catheterization, Hx Cholecystectomy, Hx Coronary Stent - Immunizations Hx Diphtheria, Pertussis, Tetanus Vaccination: Yes Physical Exam - Vital signs Vitals: Temp Pulse Resp BP Pulse Ox 97.4 F 110 H 16 160/110 H 97 08/08/19 13:06 08/08/19 13:06 08/08/19 13:06 08/08/19 13:06 08/08/19 13:06 Course - Re-evaluation Re-evalutation: Given the above history and physical, cardiac labs, liver panel, coagulation profile, EKG, and x-ray of the chest have been performed. Liver panel slightly irregular but improved from previous values. Awaiting troponin and BNP. EKG shows heart of 106, sinus tachycardia, PVCs present, slightly inverted T waves in leads III, aVF, V4 through V6. No appreciable change from previous EKG. 08/08/19 15:45 Labs as recorded. Elevated BNP. I do not see a diuretic on the patient's medication list other than a low dose HCTZ. Creatinine as recorded. Potassium slightly low. I have provided 40 mg of IV Lasix and given the patient a po tassium tablet. Patient's liver panel shows normal transaminases with a slightly elevated bilirubin. Patient still has no abdominal pain. Patient had a recent ultrasound 11 days ago. 08/08/19 15:49 Pt's son is [place]. [phone]. Patient is a a terrible historian and the patient's son has most medical information. Patient has been out of all of her medications for 2 months. She just recently got her Medicaid. 08/08/19 16:01 X-ray of the chest shows some cardiomegaly with possibly an effusion. No obvious infiltrates. Lasix has been provided. We will place a half of inch of Nitropaste on the chest and reassess blood pressure and heart rate. - Vital Signs Vital signs: Temp Pulse Resp BP Pulse Ox 97.4 F 110 H 16 160/110 H 97 08/08/19 13:06 08/08/19 13:06 08/08/19 13:06 08/08/19 13:06 08/08/19 13:06 - Laboratory Result Diagrams: 08/08/19 14:30 08/08/19 14:30 Laboratory results interpreted by me: 08/08/19 08/08/19 08/08/19 14:30 14:30 14:30 Hgb 10.7 L Hct 32.1 L RDW 16.0 H PT Sodium 135.2 L Potassium 3.5 L Creatinine 0.51 L Glucose 124 H Total Bilirubin 1.7 H Direct Bilirubin 1.0 H Alkaline Phosphatase 215 H NT-Pro-B Natriuret Pep 7890 H Albumin 3.1 L 08/08/19 14:30 Hgb Hct RDW PT 15.8 H Sodium Potassium Creatinine Glucose Total Bilirubin Direct Bilirubin Alkaline Phosphatase NT-Pro-B Natriuret Pep Albumin Discharge - Discharge Clinical Impression: Elevated blood pressure reading, Tachycardia, Lower extremity edema, Elevated bilirubin Acute congestive heart failure Qualifiers: Heart failure type: unspecified Qualified Code(s): I50.9 - Heart failure, unspecified Condition: Serious Disposition: ADMITTED INPATIENT Admitting Provider: Xiang (Hospitalist) Unit Admitted: [facility]
[2019-08-08 15:42] LABS: TROPONIN I 0.023 ng/mL
[2019-08-08] MEDS ORDERED: POTASSIUM CHLORIDE 10 MEQ TABLET.ER PO ONE (15:45)
[2019-08-08] MEDS ORDERED: FUROSEMIDE INJ/PF 40 MG/4 ML SDV IV ONE (15:45)
[2019-08-08 15:52] LABS: INTERNATIONAL RATION (INR) 1.25; PROTHROMBIN TIME 15.8 SEC (11.4-15.4)
[2019-08-08] MEDS ORDERED: NITROGLYCERIN 2% OINTMENT 1 GM PACKET TP ONE (16:00)
[2019-08-08 16:22] LABS: AMORPHOUS SEDIMENT,URINE TRACE /HPF; APPEARANCE,URINE SLIGHTLY-CLOUDY; BILIRUBIN,URINE NEGATIVE (NEGATIVE); COLOR,URINE YELLOW; GLUCOSE, URINE NEGATIVE (NEGATIVE); KETONES,URINE NEGATIVE (NEGATIVE); LEUKOCYTE ESTERASE,URINE TRACE (NEGATIVE); NITRITE,URINE NEGATIVE (NEGATIVE); PROTEIN,URINE 100 mg/dL (NEGATIVE); URINE SPECIFIC GRAVITY 1.009; UROBILINOGEN,URINE NEGATIVE mg/dL (<2.0)
--- NOTE | 2019-08-08 16:25 | RADIOLOGY REPORT (SQ) ---
EXAM DESCRIPTION: CHEST SINGLE VIEW COMPLETED DATE/TIME: 08/08/2019 4:03 pm REASON FOR STUDY: sob, leg swelling COMPARISON: AP and lateral views of the chest from 07/29/2019 EXAM PARAMETERS: NUMBER OF VIEWS: One view. TECHNIQUE: An AP view of the chest was obtained. RADIATION DOSE: NA LIMITATIONS: None. FINDINGS: LUNGS AND PLEURA: Pleural and parenchymal opacities in the inferior right hemithorax that obscure the contour of the hemidiaphragm and blunt the lateral costophrenic sulcus. MEDIASTINUM AND HILAR STRUCTURES: No mediastinal or hilar contour abnormality. HEART AND VASCULAR STRUCTURES: The cardiac silhouette is enlarged. BONES: No acute findings. HARDWARE: Implantable cardiac monitoring device. OTHER: No other finding. IMPRESSION: 1. Pleural and parenchymal opacities in the inferior right hemithorax that could represe nt a combination of pleural fluid, atelectasis, and/or pneumonia. 2. Cardiomegaly without pulmonary edema. TECHNICAL DOCUMENTATION: JOB ID: [id number] 2010 [employer]- All Rights Reserved Reading location - IP/workstation name: [email or web address]
--- NOTE | 2019-08-08 17:53 | PDOC H&P ---
History of Present Illness Admission Date/PCP: 08/08/19 17:07 History of Present Illness: PHILLIP DORANTES is a 49 year old female This patient is a very poor historian and I am unable to obtain very little information from her or her son that is in the room. Most of the information is obtained from the ED physicians notes. Patient presents with increasing swelling of bilateral lower extremities. Denies any chest pain abdominal pain or shortness of breath. Patient looks pretty pale. She apparently was here about 11 days ago but left before evaluation. She was last admitted here in September 2018 and at that time patient had an acute CVA. It appears she had been pretty noncompliant. She was not taking her medications as prescribed. She is said to have a history of congestive heart failure with ejection fraction in the 40s. She also had elevated liver function test but she was recently post cholecystectomy at that time. Physical exam at that time really noted just peda l edema whereas patient has 3+ edema today. She was also noted to be oriented x4 at the time and currently the patient is awake and alert but just is not able to provide any information or remember any details Chest x-ray today shows pleural and parenchymal opacities in the inferior right hemithorax that could represent combination of pleural fluid atelectasis and/or pneumonia. There is also cardiomegaly Abdominal sonogram done on July 29 revealed hypoechoic liver and diffuse inflammationhepatitis status post cholecystectomy. The last echocardiogram on file on July 2018 revealed ejection fraction of 40%. BNP today is 7890 but this seems to have always been elevated. In May was 6150 Past Medical History Cardiac Medical History: Reports: Congestive Heart Failure, Coronary Artery Disease, Myocardial Infarction, Hyperlipidema, Hypertension, Heart Murmur Pulmonary Medical History: Denies: Asthma, Chronic Obstructive Pulmonary Disease (COPD) Neurological Medical History: Denies: Seizures Endocrine Medical History: Reports: Diabetes Mellitus Type 1, Diabetes Mellitus Type 2 Denies: Hyperthyroidism, Hypothyroidism GI Medical History: Denies: Cirrhosis, Hepatitis Musculoskeltal Medical History: Denies: Arthritis, Gout Skin Medical History: Denies: Eczema, Psoriasis Psychiatric Medical History: Denies: Depression Hematology: Denies: Anemia, Bleeding Tendencies Past Surgical History Past Surgical History: Reports: Cardiac Catheterization, Cholecystectomy, Coronary Stent Social History Information Source: [facility] Records Lives with: Family Smoking Status: Never Smoker Electronic Cigarette use?: No Frequency of Alcohol Use: None Hx Recreational Drug Use: No Drugs: None Hx Prescription Drug Abuse: No - Advance Directive Resuscitation Status: Full Code Family History Family History: Reviewed & Not Pertinent, Other Parental Family History Reviewed: No - No information available Children Family History Reviewed: Yes Sibling(s) Family History Reviewed.: Yes Medication/Allergy Allergies/Adverse Reactions: No Known Allergies Allergy (Verified 08/08/19 14:00) Review of Systems ROS unobtainable: Other - Omitted due to patient's lack of knowledge about her illnesses Constitutional: ABSENT: headache(s) Cardiovascular: PRESENT: edema. ABSENT: chest pain Respiratory: ABSENT: cough Gastrointestinal: PRESENT: abdominal pain. ABSENT: nausea, vomiting Musculoskeletal: PRESENT: joint swelling, muscle weakness Integumentary: ABSENT: diaphoresis Physical Exam Vital Signs: Temp Pulse Resp BP Pulse Ox 97.4 F 110 H 25 H 160/110 H 90 L 08/08/19 13:06 08/08/19 13:06 08/08/19 16:00 08/08/19 13:06 08/08/19 16:00 Intake & Output 08/07/19 08/08/19 08/09/19 06:59 06:59 06:59 Weight 75 kg General appearance: PRESENT: no acute distress, other - Chronically ill looking pale older than stated age looking Eye exam: PRESENT: scleral icterus Respiratory exam: PRESENT: decreased breath sounds, unlabored. ABSENT: rhonchi, tachypnea Cardiovascular exam: PRESENT: RRR, +S1, +S2, tachycardia - Unknown device on left sided chest wall GI/Abdominal exam: PRESENT: soft, tenderness - Vague generalized Extremities exam: PRESENT: calf tenderness, tenderness, other - 3+ edema Musculoskeletal exam: PRESENT: tenderness. ABSENT: ambulatory Neurological exam: PRESENT: alert, awake, other - Unable to fully examine due to patient's condition. ABSENT: oriented to person, oriented to place, oriented to time, oriented to situation Results Laboratory Results: 08/08/19 14:30 08/08/19 14:30 08/08/19 08/08/19 08/08/19 14:30 14:30 15:30 WBC 6.0 RBC 3.76 Hgb 10.7 L Hct 32.1 L MCV 85 MCH 28.5 MCHC 33.5 RDW 16.0 H Plt Count 326 Seg Neutrophils % 56.0 Sodium 135.2 L Potassium 3.5 L Chloride 100 Carbon Dioxide 24 Anion Gap 11 BUN 14 Creatinine 0.51 L Est GFR ( Amer) > 60 Glucose 124 H Calcium 8.5 Total Bilirubin 1.7 H AST 33 Alkaline Phosphatase 215 H Ammonia Total Protein 7.8 Albumin 3.1 L Urine Color YELLOW Urine Appearance SLIGHTLY-CLOUDY Urine pH 6.0 Ur Specific [place] 1.009 Urine Protein 100 H Urine Glucose (UA) NEGATIVE Urine Ketones NEGATIVE Urine Blood MODERATE H Urine Nitrite NEGATIVE Ur Leukocyte Esterase TRACE H Urine WBC (Auto) 6 Urine RBC (Auto) 5 08/08/19 16:33 WBC RBC Hgb Hct MCV MCH MCHC RDW Plt Count Seg Neutrophils % Sodium Potassium Chloride Carbon Dioxide Anion Gap BUN Creatinine Est GFR ( Amer) Glucose Calcium Total Bilirubin AST Alkaline Phosphatase Ammonia < 8.7 L Total Protein Albumin Urine Color Urine Appearance Urine pH Ur Specific [place] Urine Protein Urine Glucose (UA) Urine Ketones Urine Blood Urine Nitrite Ur Leukocyte Esterase Urine WBC (Auto) Urine RBC (Auto) 08/08/19 14:30 Troponin I 0.023 NT-Pro-B Natriuret Pep 7890 H Impressions: Chest X-Ray 08/08/19 14:07 IMPRESSION: 1. Pleural and parenchymal opacities in the inferior right hemithorax that could represent a combination of pleural fluid, atelectasis, and/or pneumonia. 2. Cardiomegaly without pulmonary edema. Assessment and Plan - Diagnosis (2) Acute congestive heart failure Qualifiers: Heart failure type: unspecified Qualified Code(s): I50.9 - Heart failure, unspecified Is this a current diagnosis for this admission?: Yes Plan: Patient's etiology for the lower extremity swelling is unclear but likely due to CHF. Ejection fraction was about 40% last year. Chest x-ray also suggest acute CHF as well as elevated BNP. Will order an echo for further evaluation. Should be placed on Lasix. We will also continue her other medications as appropriate (3) Lower extremity edema Is this a current diagnosis for this admission?: Yes Plan: Presumably due to CHF however I will go ahead and obtain Doppler studies to rule out underlying DVT (4) Coronary artery disease Qualifiers: Coronary Disease-Associated Artery/Lesion type: [place] artery Is this a current diagnosis for this admission?: Yes (5) Noncompliance with medication regimen Is this a current diagnosis for this admission?: Yes Plan: Patient lives with her sons. They along with the patient apparently have little information about her disease. If there are further needs to be made so that this patient can be carefully cared for (6) Poor historian Is this a current diagnosis for this admission?: Yes Plan: Patient unable to provide even the basic elements of her present illness or medical history - Plan Summary Summary: Home meds are currently not available for review - Time Time Spent with patient: 25-34 minutes Medications reviewed and adjusted accordingly: Yes - Inpatient Certification Based on my medical assessment, after consideration of the patient's comorbidities, presenting symptoms, or acuity I expect that the services needed warrant INPATIENT care.: Yes Medical Necessity: Need Close Monitoring Due to Risk of Patient Decompensation, Risk of Complication if Not Cared For in Hospital
[2019-08-08] MEDS ORDERED: ONDANSETRON HCL INJ/PF 4 MG/2 ML SDV IV PRN (17:55)
[2019-08-08] MEDS ORDERED: MAGNESIUM HYDROXIDE SUSP 30 ML UDCUP PO PRN (17:55)
[2019-08-08] MEDS ORDERED: ACETAMINOPHEN 325 MG TABLET PO PRN (17:55)
[2019-08-08] MEDS: ENOXAPARIN SODIUM INJ 40 MG/0.4 ML DISP.SYRIN SUBCUT SCH (19:30)
--- NOTE | 2019-08-08 20:32 | EKG REPORT ---
SEVERITY:- ABNORMAL ECG - SINUS TACHYCARDIA MULTIPLE VENTRICULAR PREMATURE COMPLEXES LEFT ATRIAL ABNORMALITY RIGHT AXIS DEVIATION NONSPECIFIC T ABNORMALITIES, LATERAL LEADS : Confirmed by: Marin Pulido MD 08-Aug-2019 20:31:28
[2019-08-08] MEDS: FUROSEMIDE INJ/PF 40 MG/4 ML SDV IV SCH (21:25)
[2019-08-08] MEDS ORDERED: DEXTROSE 40% GEL 15 GM TUBE PO PRN (21:30)
[2019-08-08] MEDS ORDERED: GLUCAGON,HUMAN RECOMB 1 MG INJ IM PRN (21:30)
[2019-08-08] MEDS ORDERED: DEXTROSE 50%-WATER SYRINGE 12.5 GM/25 ML DOSE IV PRN (21:30)
[2019-08-08] MEDS ORDERED: DEXTROSE 40% GEL 15 GM TUBE X 2 PO PRN (21:30)
[2019-08-08] MEDS ORDERED: DEXTROSE 50%-WATER SYRINGE 25 GM/50 ML DOSE IV PRN (21:30)
[2019-08-08] MEDS: INSULIN LISPRO 100 UNIT/ML 3 ML VIAL SUBCUT SCH (21:37)
[2019-08-08] MEDS ORDERED: METOPROLOL SUCCINATE 25 MG TAB.SR.24H PO SCH (22:00)
[2019-08-08] MEDS: NITROGLYCERIN 2% OINTMENT 1 GM PACKET TP SCH (23:14)
[2019-08-09] MEDS ORDERED: INFLUENZA QUAD (6MOS+) 2019-20 VAC 0.5 ML SYR IM ONE (00:40)
[2019-08-09] MEDS ORDERED: METOPROLOL TARTRATE PF/INJ 5 MG/5 ML SDV IV ONE (00:45)
[2019-08-09] MEDS ORDERED: METOPROLOL TARTRATE 25 MG TABLET PO ONE (00:45)
[2019-08-09 03:01] LABS: ABSOLUTE LYMPHOCYTES (AUTO) 2.1 10^3/uL (0.5-4.7); ABSOLUTE MONOCYTES (AUTO) 0.4 10^3/uL (0.1-1.4); ABSOLUTE NEUT (AUTO) 3.5 10^3/uL (1.7-8.2); BASOPHILS % (AUTO) 0.8 % (0-2); EOSINOPHILS % (AUTO) 0.6 % (0-6); HEMOGLOBIN 10.7 g/dL (12.0-15.5); LYMPHOCYTES % (AUTO) 34.1 % (13-45); MEAN CORPUSCULAR HEMOGLOBIN 28.5 pg (27.0-33.4); MEAN CORPUSCULAR HGB CONC 33.5 g/dL (32.0-36.0); MEAN CORPUSCULAR VOLUME 85 fl (80-97); PLATELET COUNT 319 10^3/uL (150-450); RED BLOOD COUNT 3.76 10^6/uL (3.72-5.28); RED CELL DISTRIBUTION WIDTH 15.7 % (11.5-14.0); SEGMENTED NEUTROPHILS % (AUTO) 57.5 % (42-78); TOTAL CELLS COUNTED % (AUTO) 100 %; WHITE BLOOD COUNT 6.1 10^3/uL (4.0-10.5)
[2019-08-09 03:21] LABS: ANION GAP 9 (5-19); BLOOD UREA NITROGEN 15 mg/dL (7-20); CALCIUM 8.3 mg/dL (8.4-10.2); CARBON DIOXIDE 23 mmol/L (22-30); CHLORIDE 104 mmol/L (98-107); GLUCOSE 146 mg/dL (75-110); POTASSIUM 3.8 mmol/L (3.6-5.0)
[2019-08-09] MEDS: NITROGLYCERIN 2% OINTMENT 1 GM PACKET TP SCH ×3 (05:04→17:02)
[2019-08-09] MEDS: PANTOPRAZOLE SODIUM 20 MG TABLET.DR PO SCH (05:04)
[2019-08-09] MEDS: INSULIN LISPRO 100 UNIT/ML 3 ML VIAL SUBCUT SCH ×4 (08:40→21:54)
[2019-08-09] MEDS ORDERED: LISINOPRIL 10 MG TABLET PO SCH (10:00)
[2019-08-09] MEDS: FUROSEMIDE INJ/PF 40 MG/4 ML SDV IV SCH ×2 (10:21→22:10)
[2019-08-09] MEDS: ENOXAPARIN SODIUM INJ 40 MG/0.4 ML DISP.SYRIN SUBCUT SCH (10:21)
[2019-08-09] MEDS: DOCUSATE SODIUM 100 MG CAPSULE PO SCH (10:22)
[2019-08-09] MEDS: METOPROLOL SUCCINATE 50 MG TAB.SR.24H PO SCH ×2 (10:22→22:10)
--- NOTE | 2019-08-09 11:04 | RADIOLOGY REPORT (SQ) ---
EXAM DESCRIPTION: VENOUS BILATERAL LOWER COMPLETED DATE/TIME: 08/09/2019 10:41 am REASON FOR STUDY: Pain and swelling Bilateral LE COMPARISON: None. TECHNIQUE: Dynamic and static cutler scale and color images acquired of both lower extremity venous sy stems. Selected spectral images acquired with additional compression and augmentation maneuvers. Imag es stored on PACS. LIMITATIONS: None. FINDINGS: RIGHT LEG COMMON FEMORAL AND FEMORAL: Normal phasicity, compression and augmentation. No visualized echogenic m aterial on cutler scale. No defects on color images. POPLITEAL: Normal compression and augmentation. No visualized echogenic material on cutler scale. No de fects on color images. CALF VESSELS: Normal compression and augmentation. No visualized echogenic material on cutler scale. No defects on color image. GSV AND SSV: Normal compression. No visualized echogenic material on cutler scale. No defects on color images. ANY DEEP VENOUS INSUFFICIENCY: No. ANY EVIDENCE OF POPLITEAL CYST: No. OTHER: No other significant finding. LEFT LEG COMMON FEMORAL AND FEMORAL: Normal phasicity, compression and augmentation. No visualized echogenic m aterial on cutler scale. No defects on color images. POPLITEAL: Normal compression and augmentation. No visualized echogenic material on cutler scale. No de fects on color images. CALF VESSELS: Normal compression and augmentation. No visualized echogenic material on cutler scale. No defects on color images. GSV AND SSV: Normal compression. No visualized echogenic material on cutler scale. No defects on color images. ANY DEEP VENOUS INSUFFICIENCY: No. ANY EVIDENCE POPLITEAL CYST: No. OTHER: No other significant finding. IMPRESSION: NO EVIDENCE DVT OR SVT IN EITHER LEG. TECHNICAL DOCUMENTATION: JOB ID: [id number] [email or web address] All Rights Reserved Reading location - IP/workstation name: [email or web address]
--- NOTE | 2019-08-09 14:33 | PDOC PROGRESS REPORT ---
Subjective Progress Note for:: 08/09/19 Subjective:: PHILLIP DORANTES is a 49 year old female This patient is a very poor historian and I am unable to obtain very little information from her or her son that is in the room. Most of the information is obtained from the ED physicians notes. Patient presents with increasing swelling of bilateral lower extremities. Denies any chest pain abdominal pain or shortness of breath. Patient looks pretty pale. She apparently was here about 11 days ago but left before evaluation. She was last admitted here in September 2018 and at that time patient had an acute CVA. It appears she had been pretty noncompliant. She was not taking her medications as prescribed. She is said to have a history of congestive heart failure with ejection fraction in the 40s. She also had elevated liver function test but she was recently post cholecystectomy at that time. Physical exam at that time really noted just pedal edema whereas patient has 3+ edema today. She was also noted to be oriented x4 at the time and currently the patient is awake and alert but just is not able to provide any information or remember any details Chest x-ray today shows pleural and parenchymal opacities in the inferior right hemithorax that could represent combination of pleural fluid atelectasis and/or pneumonia. There is also cardiomegaly Abdominal sonogram done on July 29 revealed hypoechoic liver and diffuse inflammationhepatitis status post cholecystectomy. The last echocardiogram on file on July 2018 revealed ejection fraction of 40%. BNP today is 7890 but this seems to have always been elevated. In May was 6150 08/09/2019. No acute events overnight. Reason For Visit: HEART FAILURE Physical Exam Vital Signs: Temp Pulse Resp BP Pulse Ox 97.1 F 81 16 172/106 H 98 08/09/19 11:37 08/09/19 11:37 08/09/19 11:37 08/09/19 11:37 08/09/19 11:37 Intake & Output 08/08/19 08/09/19 08/10/19 06:59 06:59 06:59 Intake Total 120 380 Output Total 2750 Balance -2630 380 Weight 75.2 kg General appearance: PRESENT: no acute distress, well-developed, well-nourished Head exam: PRESENT: atraumatic, normocephalic Respiratory exam: PRESENT: clear to auscultation ac. ABSENT: rales, rhonchi, wheezes Cardiovascular exam: PRESENT: RRR. ABSENT: diastolic murmur, rubs, systolic murmur GI/Abdominal exam: PRESENT: normal bowel sounds, soft. ABSENT: distended, guarding, mass, organolmegaly, rebound, tenderness Extremities exam: PRESENT: +2 edema Neurological exam: PRESENT: alert, awake, oriented to person, oriented to place, oriented to time, oriented to situation, CN II-XII grossly intact. ABSENT: motor sensory deficit Results Laboratory Results: 08/09/19 02:51 08/09/19 02:51 08/08/19 08/08/19 08/08/19 14:30 14:30 15:30 WBC 6.0 RBC 3.76 Hgb 10.7 L Hct 32.1 L MCV 85 MCH 28.5 MCHC 33.5 RDW 16.0 H Plt Count 326 Seg Neutrophils % 56.0 Sodium 135.2 L Potassium 3.5 L Chloride 100 Carbon Dioxide 24 Anion Gap 11 BUN 14 Creatinine 0.51 L Est GFR ( Amer) > 60 Glucose 124 H Calcium 8.5 Total Bilirubin 1.7 H AST 33 Alkaline Phosphatase 215 H Ammonia Total Protein 7.8 Albumin 3.1 L Urine Color YELLOW Urine Appearance SLIGHTLY-CLOUDY Urine pH 6.0 Ur Specific [place] 1.009 Urine Protein 100 H Urine Glucose (UA) NEGATIVE Urine Ketones NEGATIVE Urine Blood MODERATE H Urine Nitrite NEGATIVE Ur Leukocyte Esterase TRACE H Urine WBC (Auto) 6 Urine RBC (Auto) 5 08/08/19 08/09/19 08/09/19 16:33 02:51 02:51 WBC 6.1 RBC 3.76 Hgb 10.7 L Hct 32.0 L MCV 85 MCH 28.5 MCHC 33.5 RDW 15.7 H Plt Count 319 Seg Neutrophils % 57.5 Sodium 136.4 L Potassium 3.8 Chloride 104 Carbon Dioxide 23 Anion Gap 9 BUN 15 Creatinine 0.54 Est GFR ( Amer) > 60 Glucose 146 H Calcium 8.3 L Total Bilirubin AST Alkaline Phosphatase Ammonia < 8.7 L Total Protein Albumin Urine Color Urine Appearance Urine pH Ur Specific [place] Urine Protein Urine Glucose (UA) Urine Ketones Urine Blood Urine Nitrite Ur Leukocyte Esterase Urine WBC (Auto) Urine RBC (Auto) 08/08/19 08/08/19 08/08/19 14:30 18:49 20:29 Troponin I 0.023 Cancelled 0.024 NT-Pro-B Natriuret Pep 7890 H 08/09/19 08/09/19 02:51 08:42 Troponin I 0.028 0.019 NT-Pro-B Natriuret Pep Impressions: Chest X-Ray 08/08/19 14:07 IMPRESSION: 1. Pleural and parenchymal opacities in the inferior right hemith orax that could represent a combination of pleural fluid, atelectasis, and/or pneumonia. 2. Cardiomegaly without pulmonary edema. Venous Doppler Study 08/09/19 00:00 IMPRESSION: NO EVIDENCE DVT OR SVT IN EITHER LEG. Assessment and Plan - Diagnosis (1) Acute congestive heart failure Qualifiers: Heart failure type: systolic Qualified Code(s): I50.21 - Acute systolic (congestive) heart failure Is this a current diagnosis for this admission?: Yes Plan: Likely due to medication noncompliance. Presented with BNP of 7890 up from baseline of 0939-5685. History of systolic heart failure. LVEF 08/25/2018 40%. Cardiac diet, fluid restriction, strict in and outs, daily weight, beta- blockers, VI, diuretics. Pending 2D echo. (2) Acute respiratory failure with hypoxia Is this a current diagnosis for this admission?: Yes Plan: Likely due to acute CHF exacerbation, atelectasis. Resolved. SPO2 WNL on RA. (3) Coronary artery disease Qualifiers: Coronary Disease-Associated Artery/Lesion type: [place] artery Is this a current diagnosis for this admission?: Yes Plan: General symptoms. Status post stent placement. Mildly elevated troponins 0.023, 0.024, 0.028, 0.019.NSTEMI type II due to demand mismatch and hypertensive urgency. Continue antiplatelets, beta-blockers, VI, statins. Uptitrate beta blockers and VI as tolerated. Outpatient PCP and cardiology follow-up. (4) Noncompliance with medication regimen Is this a current diagnosis for this admission?: Yes Plan: Educated family and patient. Will consult discharge planning for possible medication administration at system at home. (5) Obesity Qualifiers: Body mass index: BMI 31.0-31.9 Is this a current diagnosis for this admission?: Yes Plan: Diet and lifestyle modification recommended. TSH 2.02 on 08/23/2018. (6) Hypertensive urgency Is this a current diagnosis for this admission?: Yes Plan: Improving. Not optimized. Presented with elevated systolic blood pressure, acute CHF and mildly elevated troponins. Continue beta-blockers, VI, diuretics. PRN hydralazine, IV metoprolol. Adjust meds as needed. Outpatient PCP follow-up. (7) Diabetes mellitus type 2 in obese Is this a current diagnosis for this admission?: Yes Plan: History of uncontrolled diabetes. Hemoglobin A1c more than 14% on previous admission. Home medications are Lantus 10 units nightly. Diabetic diet, basal, prandial and correctional insulin. Hypoglycemic protocol. Accu-Chek. Adjust insulin dosage as needed. Outpatient PCP follow-up. (8) History of CVA (cerebrovascular accident) Is this a current diagnosis for this admission?: Yes Plan: History of CVA 10/04/2018. Multiple lacunar infarct. Continue DAPT, continue high intensity statins. Optimize BP and diabetic control. - Plan Summary Summary: Home meds are currently not available for review
[2019-08-09] MEDS: ASPIRIN 81 MG TABLET, CHEWABLE PO SCH (16:58)
[2019-08-09] MEDS ORDERED: CARVEDILOL 12.5 MG TABLET PO SCH (22:00)
[2019-08-09] MEDS ORDERED: ATORVASTATIN CALCIUM 40 MG TABLET PO SCH (22:00)
[2019-08-09] MEDS ORDERED: INSULIN GLARGINE,HUM.REC.ANLOG 1,000 UNIT/10 ML VIAL SUBCUT SCH (22:00)
[2019-08-10] MEDS: NITROGLYCERIN 2% OINTMENT 1 GM PACKET TP SCH ×3 (00:19→12:31)
[2019-08-10 05:22] LABS: HEMATOCRIT 31.8 % (36.0-47.0); HEMOGLOBIN 10.6 g/dL (12.0-15.5); MEAN CORPUSCULAR HEMOGLOBIN 28.2 pg (27.0-33.4); MEAN CORPUSCULAR HGB CONC 33.4 g/dL (32.0-36.0); MEAN CORPUSCULAR VOLUME 84 fl (80-97); PLATELET COUNT 279 10^3/uL (150-450); RED BLOOD COUNT 3.77 10^6/uL (3.72-5.28); RED CELL DISTRIBUTION WIDTH 16.2 % (11.5-14.0); WHITE BLOOD COUNT 5.6 10^3/uL (4.0-10.5)
[2019-08-10 05:49] LABS: ALBUMIN 2.4 g/dL (3.5-5.0); ALKALINE PHOSPHATASE 158 U/L (38-126); ANION GAP 8 (5-19); ASPARTATE AMINO TRANSFERASE 25 U/L (14-36); BILIRUBIN,DIRECT 1.1 mg/dL (0.0-0.4); BILIRUBIN,TOTAL 2.1 mg/dL (0.2-1.3); BLOOD UREA NITROGEN 17 mg/dL (7-20); CALCIUM 8.2 mg/dL (8.4-10.2); CARBON DIOXIDE 26 mmol/L (22-30); CHLORIDE 103 mmol/L (98-107); GLUCOSE 89 mg/dL (75-110); POTASSIUM 3.3 mmol/L (3.6-5.0); TOTAL PROTEIN 6.2 g/dL (6.3-8.2)
[2019-08-10] MEDS: PANTOPRAZOLE SODIUM 20 MG TABLET.DR PO SCH (06:04)
[2019-08-10] MEDS ORDERED: POTASSIUM CHLORIDE 10 MEQ TABLET.ER PO ONE ×2 (08:00→10:27)
[2019-08-10] MEDS: INSULIN LISPRO 100 UNIT/ML 3 ML VIAL SUBCUT SCH ×2 (08:46→12:30)
[2019-08-10] MEDS ORDERED: LISINOPRIL 10 MG TABLET PO SCH (10:00)
[2019-08-10] MEDS ORDERED: METOPROLOL SUCCINATE 50 MG TAB.SR.24H PO SCH (10:00)
[2019-08-10] MEDS ORDERED: CLOPIDOGREL BISULFATE 75 MG TABLET PO SCH (10:00)
[2019-08-10] MEDS: DOCUSATE SODIUM 100 MG CAPSULE PO SCH (10:18)
[2019-08-10] MEDS: FUROSEMIDE INJ/PF 40 MG/4 ML SDV IV SCH (10:18)
[2019-08-10] MEDS: ASPIRIN 81 MG TABLET, CHEWABLE PO SCH (10:18)
[2019-08-10] MEDS: ENOXAPARIN SODIUM INJ 40 MG/0.4 ML DISP.SYRIN SUBCUT SCH (10:18)
--- NOTE | 2019-08-10 12:24 | XCELERA REPORT ---
[address] [address] Transthoracic Echocardiogram Report Name: PHILLIP DORANTES Age: 49 yrs Gender: Female : 1970 Patient Status: Inpatient Patient Location: [address] [place], [place] [address] Study Date: 08/09/2019 09:34 AM Height: 61 in Weight: 165 lb BSA: 1.7 m2 Procedure: A complete two-dimensional transthoracic echocardiogram was performed (2D, M-mode, spectral and color flow Doppler). The study was technically adequate with some images being suboptimal in quality. Reason For Study: CHF Ordering Physician: BRENDA BERNARDO Performed By: Mary Del Rio Interpretation Summary LV EF is 30% Left ventricular systolic function is moderate to severely reduced. There is mild to moderate concentric left ventricular hypertrophy. The left ventricle is grossly normal size. Doppler measurements suggest pseudonormalized left ventricular relaxation, which is associated with grade II/IV or mild to moderate diastolic dysfunction There is moderate to severe global hypokinesis of the left ventricle. The right ventricular systolic function is normal. The left atrium is moderately dilated. The right atrium is moderately dilated. The mitral regurgitant jet is eccentrically directed. There is a moderate to severe amount of mitral regurgitation There is a moderate amount of aortic regurgitation There is no aortic valve stenosis There is a moderate amount of tricuspid regurgitation There is moderate pulmonary hypertension by echo Best estimated right ventricular systolic pressure is elevated at 50-60mmHg. The aortic root is not well visualized but is probably normal size. The inferior vena cava appeared normal and decreased < 50% with respiration (RAP 10-15 mmHg) There is no pericardial effusion. MMode/2D Measurements & Calculations RVDd: 3.6 cm LVIDd: 5.5 cm FS: 12.7 % Ao root diam: IVSd: 1.3 cm LVIDs: 4.8 cm EDV(Teich): 2.7 cm 145.4 ml Ao root area: LVPWd: 1.0 cm ESV(Teich): 5.8 cm2 106.2 ml LA dimension: EF(Teich): 26.9 % 4.7 cm LVLd ap4: 9.3 cm SV(MOD-sp4): EDV(MOD-sp4): 25.0 ml 102.0 ml LVLs ap4: 8.7 cm ESV(MOD-sp4): 77.0 ml EF(MOD-sp4): 24.5 % Doppler Measurements & Calculations MV E max christo: MV P1/2t max christo: Ao V2 max: AI max christo: 85.3 cm/sec 117.6 cm/sec 144.5 cm/sec 498.5 cm/sec MV A max christo: MV P1/2t: 68.5 msec Ao max PG: AI max P.9 cm/sec MVA(P1/2t): 3.2 cm2 8.4 mmHg 99.6 mmHg MV E/A: 1.1 MV dec slope: AI dec slope: 212.4 cm/sec2 502.8 cm/sec2 AI P1/2t: MV dec time: 0.14 sec 687.5 msec LV V1 max PG: PA V2 max: PI end-d christo: TR max christo: 1.6 mmHg 61.3 cm/sec 125.1 cm/sec 335.8 cm/sec LV V1 max: PA max P.5 mmHg TR max P.7 cm/sec 45.1 mmHg AV P1/2t-pr_phl: MV P1/2t-pr_phl: 755.3 msec 70.2 msec Left Ventricle The left ventricle is grossly normal size. There is mild to moderate concentric left ventricular hypertrophy. Left ventricular systolic function is moderate to severely reduced. LV EF is 30%. Doppler measurements suggest pseudonormalized left ventricular relaxation, which is associated with grade II/IV or mild to moderate diastolic dysfunction. There is moderate to severe global hypokinesis of the left ventricle. Right Ventricle The right ventricle is grossly normal size. There is normal right ventricular wall thickness. The right ventricular systolic function is normal. Atria The right atrium is moderately dilated. The left atrium is moderately dilated. Interarterial septum not well visualized and not well dopplered. Cannot comment on ASD/PFO presence. Mitral Valve The mitral valve leaflets are sclerotic and show some degree of functional abnormality. There is no mitral valve stenosis. The mitral regurgitant jet is eccentrically directed. There is a moderate to severe amount of mitral regurgitation. Aortic Valve The aortic valve is mildly calcified. There is no aortic valve stenosis. There is a moderate amount of aortic regurgitation. Tricuspid Valve The tricuspid valve is not well visualized, but is grossly normal. There is no tricuspid stenosis. There is a moderate amount of tricuspid regurgitation. There is moderate pulmonary hypertension by echo. Best estimated right ventricular systolic pressure is elevated at 50-60mmHg. Pulmonic Valve The pulmonic valve is not well visualized. Great Vessels The aortic root is not well visualized but is probably normal size. The inferior vena cava appeared normal and decreased < 50% with respiration (RAP 10-15 mmHg). Effusions There is no pericardial effusion. : BRENDA BERNARDO Shyamal
--- NOTE | 2019-08-10 12:51 | CDI QUERY ---
CDI Query CDI Review: Dear SAM, To better reflect your patients severity of illness, morbidity, and resource utilization Please LINK any condition to present on admission, if applicable. The terms probable, suspected, likely, possible or still to be ruled out may be used. If you agree, please add to the Progress Notes and Discharge Summary Query Clinical indicators ATELECTASIS? INSIGNIFICANT FINDING? OTHER? Chest X-Ray 08/08/19 14:07 IMPRESSION: 1. Pleural and parenchymal opacities in the inferior right hemithorax that could represent a combination of pleural fluid, atelectasis, and/or pneumonia. Respiratory exam: PRESENT: decreased breath sounds Thank you, ALEXANDRE Clinical Documentation Physician Advisors TIM [facility] Office [phone]
--- NOTE | 2019-08-10 13:04 | EKG REPORT ---
SEVERITY:- ABNORMAL ECG - SINUS RHYTHM MULTIPLE VENTRICULAR PREMATURE COMPLEXES PROBABLE LEFT ATRIAL ABNORMALITY PROBABLE LVH WITH SECONDARY REPOL ABNRM : Confirmed by: Marin Pulido MD 10-Aug-2019 13:04:15
[2019-08-10 15:59] VITALS: BP 160/93
--- NOTE | 2019-08-10 16:12 | PDOC DISCHARGE SUMMARY ---
Impression - Admit/DC Date/PCP Admission Date/Primary Care Provider: 08/08/19 17:07 Discharge Date: 08/10/19 - Discharge Diagnosis (1) Acute congestive heart failure Is this a current diagnosis for this admission?: Yes (2) Coronary artery disease Is this a current diagnosis for this admission?: Yes (3) Noncompliance with medication regimen Is this a current diagnosis for this admission?: Yes (4) Obesity Is this a current diagnosis for this admission?: Yes (5) Hypertensive urgency Is this a current diagnosis for this admission?: Yes (6) Diabetes mellitus type 2 in obese Is this a current diagnosis for this admission?: Yes (7) History of CVA (cerebrovascular accident) Is this a current diagnosis for this admission?: Yes (8) Acute respiratory failure with hypoxia Is this a current diagnosis for this admission?: Yes - Assessment Summary: Home meds are currently not available for review - Additional Information Resuscitation Status: Full Code Discharge Diet: Cardiac, Diabetic Discharge Activity: Activity As Tolerated, Balance Activity w/Rest, Weigh Daily Referrals: [facility] [Outside] - 08/16/19 3:00 pm BLAYNE ASHLEY MD [ACTIVE STAFF] - Prescriptions: Aspirin [Aspirin 81 mg Chewable Tablet] 81 mg PO DAILY 30 Days #30 tab.chew Metformin HCl [Glucophage] 1,000 mg PO BID 30 Days #60 tablet Insulin Glargine,Hum.rec.anlog [Lantus Insulin 100 Unit/1 ml 10 ml] 5 unit SUBCUT QHS 30 Days #1 unit Atorvastatin Calcium [Lipitor 40 mg Tablet] 40 mg PO QHS 30 Days #30 tablet Clopidogrel Bisulfate [Plavix 75 mg Tablet] 75 mg PO DAILY 30 Days #30 tablet Metoprolol Succinate [Toprol Xl 50 mg Tab.sr] 100 mg PO Q12 30 Days #60 tab.sr.24h Lisinopril [Zestril] 40 mg PO DAILY 30 Days #30 tablet Home Medications: Aspirin [Aspirin 81 mg Chewable Tablet] 81 mg PO DAILY 30 Days #30 tab.chew 08/10/19 Atorvastatin Calcium [Lipitor 40 mg Tablet] 40 mg PO QHS 30 Days #30 tablet 08/10/19 Clopidogrel Bisulfate [Plavix 75 mg Tablet] 75 mg PO DAILY 30 Days #30 tablet 08/10/19 Insulin Glargine,Hum.rec.anlog [Lantus Insulin 100 Unit/1 ml 10 ml] 5 unit SUBCUT QHS 30 Days #1 unit 08/10/19 Lisinopril [Zestril] 40 mg PO DAILY 30 Days #30 tablet 08/10/19 Metformin HCl [Glucophage] 1,000 mg PO BID 30 Days #60 tablet 08/10/19 Metoprolol Succinate [Toprol Xl 50 mg Tab.sr] 100 mg PO Q12 30 Days #60 tab.sr.24h 08/10/19 History of Present Illiness History of Present Illness: PHILLIP DORANTES is a 49 year old female Hospital Course Hospital Course: (1) Acute congestive heart failure Acute CHF exacerbation likely due to medication noncompliance. Presented with BNP of 7890 up from baseline of 0319-1145. History of systolic heart failure. LVEF 08/25/2018 40%. Repeat 2D echo ejection fraction 30% stage II diastolic dysfunction. Was a started on cardiac diet, fluid restriction, strict in and outs, daily weight, beta-blockers, VI, diuretics. Discharged on beta-blockers, VI and diuretics. Unfortunately patient noted to have history of noncompliance. (2) Acute respiratory failure with hypoxia Resolved. Likely due to acute CHF exacerbation, atelectasis. Resolved. SPO2 WNL on RA. (3) Coronary artery disease Denied any anginal symptoms. Status post stent placement. Mildly elevated troponins 0.023, 0.024, 0.028, 0.019.NSTEMI type II due to demand mismatch and hypertensive urgency. Continud antiplatelets, beta-blockers, VI, statins. (4) Noncompliance with medication regimen Educated family and patient. Will consult discharge planning for possible medication administration at system at home. (5) Obesity Diet and lifestyle modification recommended. TSH 2.02 on 08/23/2018. (6) Hypertensive urgency Improved. Optimized. SBP WNL at time of discharge. Presented with elevated systolic blood pressure, acute CHF and mildly elevated troponins. Was continue beta-blockers, VI, diuretics. PRN hydralazine, IV metoprolol. Discharge on beta-blockers, VI and diuretics. History of noncompliance. (7) Diabetes mellitus type 2 in obese History of uncontrolled diabetes. Hemoglobin A1c more than 14% on previous admission. Home medications are Lantus 10 units nightly. Diabetic diet, basal, prandial and correctional insulin. Hypoglycemic protocol. Accu-Chek. Discharge on metformin thousand milligrams p.o. twice daily. Lantus 5 units nightly. Repeat A1c 8.5. (8) History of CVA (cerebrovascular accident) History of CVA 10/04/2018. Multiple lacunar infarct. Denies any new focal neurologic symptoms. Continued DAPT, continue high intensity statins. Physical Exam Vital Signs: Temp Pulse Resp BP Pulse Ox 97.5 F 66 16 160/93 H 97 08/10/19 15:51 08/10/19 15:51 08/10/19 15:51 08/10/19 15:51 08/10/19 15:51 Intake & Output 08/09/19 08/10/19 08/11/19 06:59 06:59 06:59 Intake Total 120 900 380 Output Total 2750 3075 Balance -2630 -6545 380 Weight 75.2 kg 73.2 kg 73.2 kg General appearance: PRESENT: no acute distress, well-developed, well-nourished Head exam: PRESENT: atraumatic, normocephalic Respiratory exam: PRESENT: clear to auscultation ac. ABSENT: rales, rhonchi, wheezes Pulses: PRESENT: normal dorsalis pedis pul GI/Abdominal exam: PRESENT: normal bowel sounds, soft. ABSENT: distended, guarding, mass, organolmegaly, rebound, tenderness Neurological exam: PRESENT: alert, awake, oriented to person, oriented to place, oriented to time, oriented to situation, CN II-XII grossly intact, motor sensory deficit - Right upper and lower extremity weakness chronic, at baseline. Results Laboratory Results: WBC 5.6 10^3/uL (4.0-10.5) 08/10/19 04:14 RBC 3.77 10^6/uL (3.72-5.28) 08/10/19 04:14 Hgb 10.6 g/dL (12.0-15.5) L 08/10/19 04:14 Hct 31.8 % (36.0-47.0) L 08/10/19 04:14 MCV 84 fl (80-97) 08/10/19 04:14 MCH 28.2 pg (27.0-33.4) 08/10/19 04:14 MCHC 33.4 g/dL (32.0-36.0) 08/10/19 04:14 RDW 16.2 % (11.5-14.0) H 08/10/19 04:14 Plt Count 279 10^3/uL (150-450) 08/10/19 04:14 Lymph % (Auto) 34.1 % (13-45) 08/09/19 02:51 [place] % (Auto) 7.0 % (3-13) 08/09/19 02:51 Eos % (Auto) 0.6 % (0-6) 08/09/19 02:51 Baso % (Auto) 0.8 % (0-2) 08/09/19 02:51 Absolute Neuts (auto) 3.5 10^3/uL (1.7-8.2) 08/09/19 02:51 Absolute Lymphs (auto) 2.1 10^3/uL (0.5-4.7) 08/09/19 02:51 Absolute Monos (auto) 0.4 10^3/uL (0.1-1.4) 08/09/19 02:51 Absolute Eos (auto) 0.0 10^3/uL (0.0-0.6) 08/09/19 02:51 Absolute Basos (auto) 0.0 10^3/uL (0.0-0.2) 08/09/19 02:51 Seg Neutrophils % 57.5 % (42-78) 08/09/19 02:51 PT 15.8 SEC (11.4-15.4) H 08/08/19 14:30 INR 1.25 08/08/19 14:30 Sodium 136.7 mmol/L (137-145) L 08/10/19 04:14 Potassium 3.8 mmol/L (3.6-5.0) 08/10/19 12:50 Chloride 103 mmol/L (98-107) 08/10/19 04:14 Carbon Dioxide 26 mmol/L (22-30) 08/10/19 04:14 Anion Gap 8 (5-19) 08/10/19 04:14 BUN 17 mg/dL (7-20) 08/10/19 04:14 Creatinine 0.59 mg/dL (0.52-1.25) 08/10/19 04:14 Est GFR ( Amer) > 60 (>60) 08/10/19 04:14 Est GFR (MDRD) Non-Af > 60 (>60) 08/10/19 04:14 Glucose 89 mg/dL (75-110) 08/10/19 04:14 POC Glucose 172 mg/dL (70-110) H 08/10/19 11:19 Hemoglobin A1c % 8.1 % (4.7-6.0) H 08/10/19 04:14 Calcium 8.2 mg/dL (8.4-10.2) L 08/10/19 04:14 Magnesium 1.5 mg/dL (1.6-2.3) L 08/10/19 04:14 Total Bilirubin 2.1 mg/dL (0.2-1.3) H 08/10/19 04:14 Direct Bilirubin 1.1 mg/dL (0.0-0.4) H 08/10/19 04:14 Neonat Total Bilirubin Not Reportable 08/10/19 04:14 Neonat Direct Bilirubin Not Reportable 08/10/19 04:14 Neonat Indirect Bili Not Reportable 08/10/19 04:14 AST 25 U/L (14-36) 08/10/19 04:14 ALT 14 U/L (<35) 08/10/19 04:14 Alkaline Phosphatase 158 U/L (38-126) H 08/10/19 04:14 Ammonia < 8.7 umol/L (9-33) L 08/08/19 16:33 Troponin I 0.019 ng/mL 08/09/19 08:42 NT-Pro-B Natriuret Pep 7890 pg/mL (<125) H 08/08/19 14:30 Total Protein 6.2 g/dL (6.3-8.2) L 08/10/19 04:14 Albumin 2.4 g/dL (3.5-5.0) L 08/10/19 04:14 Urine Color YELLOW 08/08/19 15:30 Urine Appearance SLIGHTLY-CLOUDY 08/08/19 15:30 Urine pH 6.0 (5.0-9.0) 08/08/19 15:30 Ur Specific [place] 1.009 08/08/19 15:30 Urine Protein 100 mg/dL (NEGATIVE) H 08/08/19 15:30 Urine Glucose (UA) NEGATIVE mg/dL (NEGATIVE) 08/08/19 15:30 Urine Ketones NEGATIVE mg/dL (NEGATIVE) 08/08/19 15:30 Urine Blood MODERATE (NEGATIVE) H 08/08/19 15:30 Urine Nitrite NEGATIVE (NEGATIVE) 08/08/19 15:30 Urine Bilirubin NEGATIVE (NEGATIVE) 08/08/19 15:30 Urine Urobilinogen NEGATIVE mg/dL (<2.0) 08/08/19 15:30 Ur Leukocyte Esterase TRACE (NEGATIVE) H 08/08/19 15:30 Urine WBC (Auto) 6 /HPF 08/08/19 15:30 Urine RBC (Auto) 5 /HPF 08/08/19 15:30 Urine Bacteria (Auto) 2+ /HPF 08/08/19 15:30 Squamous Epi Cells Auto 4 /HPF 08/08/19 15:30 Amorphous Sediment Auto TRACE /HPF 08/08/19 15:30 Urine Mucus (Auto) RARE /LPF 08/08/19 15:30 Urine Ascorbic Acid NEGATIVE (NEGATIVE) 08/08/19 15:30 08/08/19 08/08/19 08/08/19 14:30 18:49 20:29 Troponin I 0.023 Cancelled 0.024 NT-Pro-B Natriuret Pep 7890 H 08/09/19 08/09/19 02:51 08:42 Troponin I 0.028 0.019 NT-Pro-B Natriuret Pep Impressions: Chest X-Ray 08/08/19 14:07 IMPRESSION: 1. Pleural and parenchymal opacities in the inferior right hemithorax that could represent a combination of pleural fluid, atelectasis, and/or pneumonia. 2. Cardiomegaly without pulmonary edema. Venous Doppler Study 08/09/19 00:00 IMPRESSION: NO EVIDENCE DVT OR SVT IN EITHER LEG. Stroke Is this a Stroke Patient?: No Acute Heart Failure - Is this a Heart Failure Patient?: No
[2019-08-10] MEDS ORDERED: INSULIN GLARGINE,HUM.REC.ANLOG 1,000 UNIT/10 ML VIAL SUBCUT SCH (22:00)
== END 2019-08-10 16:22 | disposition home or self-care (01) | DRG 291 ==
LOC: ER 12:46 → EH 17:07 → 3N 19:03
PROVIDERS: ADMIT Internal Medicine; ATTEND Internal Medicine
DX: I11.0 Hypertensive heart disease with heart failure (principal); J96.01 Acute respiratory failure with hypoxia; J98.11 Atelectasis; I16.0 Hypertensive urgency; I50.23 Acute on chronic systolic (congestive) heart failure; I25.10 Atherosclerotic heart disease of native coronary artery without angina pectoris; E66.9 Obesity, unspecified; E11.9 Type 2 diabetes mellitus without complications; E78.5 Hyperlipidemia, unspecified; E78.00 Pure hypercholesterolemia, unspecified; I25.2 Old myocardial infarction; Z68.31 Body mass index [BMI] 31.0-31.9, adult; Z23 Encounter for immunization; Z91.14 Patient's other noncompliance with medication regimen; Z86.73 Personal history of transient ischemic attack (TIA), and cerebral infarction without residual deficits; Z79.82 Long term (current) use of aspirin; Z79.4 Long term (current) use of insulin; Z79.899 Other long term (current) drug therapy; Z95.5 Presence of coronary angioplasty implant and graft; Z79.02 Long term (current) use of antithrombotics/antiplatelets
CPT/HCPCS: 36415; 51702; 71045; 80048; 80053; 81001; 82140; 82962; 83036; 83735; 83880; 84132; 84484; 85025; 85027; 85610; 90686; 93005; 93010; 93306; 93970; 96374; 99285; J1650; J1815; J1940; J3490

== ENCOUNTER 2019-08-24 13:14 | Observation (INO) | payer MEDICAID, OTHER ==
--- NOTE | 2019-08-24 15:45 | ER Document Report ---
ED Medical Screen (RME) - General Chief Complaint: Leg Swelling Stated Complaint: LEGS SWELLING Time Seen by Provider: 08/24/19 15:31 Notes: HPI: 49-year-old female with history of diabetes, hypertension, stroke with residual right-sided hemiparesis, DC with stents presenting for increasing swelling of the legs over the last 1 to 2 weeks. Patient states she has had some chest discomfort and shortness of breath at night when lying down to go to sleep. No fevers. Son providing additional history as patient is a poor historian. Patient is on medication for the swelling in the legs has not seen her primary care provider for evaluation since her last ER visit for similar complaints. They feel like the swelling of the legs is progressively worsening. I have greeted and performed a rapid initial assessment of this patient. A comprehensive ED assessment and evaluation of the patient, analysis of test results and completion of the medical decision making process will be conducted by additional ED providers PHYSICAL EXAMINATION: GENERAL: Chronically ill-appearing, well-nourished and in mild acute distress. HEAD: Atraumatic, normocephalic. EYES: sclera anicteric, conjunctiva are normal. ENT: Moist mucous membranes. NECK: Normal range of motion LUNGS: Normal work of breathing, decreased lung sounds in the bases HEART: 2+ radial pulses bilaterally, occasionally irregular, 2/6 murmur ABD: limited by positioning for exam in triage. EXTREMITIES: 2+ pitting edema bilateral lower extremities from knees through ankles. NEUROLOGICAL: Right hemiparesis is noted, patient occasionally with some difficulty with orientation during discussion PSYCH: Normal mood, normal affect. SKIN: Warm, Dry, normal turgor, no rashes or lesions noted. TRAVEL OUTSIDE OF THE [place] IN LAST 30 DAYS: No - Related Data Allergies/Adverse Reactions: No Known Allergies Allergy (Verified 08/08/19 14:00) Past Medical History - Past Medical History Cardiac Medical History: Reports: Hx Congestive Heart Failure, Hx Coronary Artery Disease, Hx Heart Attack, Hx Hypercholesterolemia, Hx Hypertension, Hx Heart Murmur Pulmonary Medical History: Denies: Hx Asthma, Hx COPD Neurological Medical History: Denies: Hx Seizures Endocrine Medical History: Reports: Hx Diabetes Mellitus Type 1, Hx Diabetes Mellitus Type 2. Denies: Hx Hyperthyroidism, Hx Hypothyroidism Renal/ Medical History: Denies: Hx Peritoneal Dialysis GI Medical History: Denies: Hx Cirrhosis, Hx Hepatitis Musculoskeltal Medical History: Denies Hx Arthritis, Denies Hx Gout Skin Medical History: Denies Hx Eczema, Denies Hx Psoriasis Psychiatric Medical History: Denies: Hx Depression Infectious Medical History: Denies: Hx Hepatitis Past Surgical History: Reports: Hx Cardiac Catheterization, Hx Cholecystectomy, Hx Coronary Stent - Immunizations Hx Diphtheria, Pertussis, Tetanus Vaccination: Yes Physical Exam - Vital signs Vitals: Temp Pulse Resp BP Pulse Ox 97.4 F 89 20 162/112 H 100 08/24/19 13:19 08/24/19 13:19 08/24/19 13:19 08/24/19 13:19 08/24/19 13:19 Course - Vital Signs Vital signs: Temp Pulse Resp BP Pulse Ox 97.4 F 89 20 162/112 H 100 08/24/19 13:19 08/24/19 13:19 08/24/19 13:19 08/24/19 13:19 08/24/19 13:19
--- NOTE | 2019-08-24 16:25 | RADIOLOGY REPORT (SQ) ---
EXAM DESCRIPTION: CHEST 2 VIEWS COMPLETED DATE/TIME: 08/24/2019 4:02 pm REASON FOR STUDY: chest pain COMPARISON: 08/08/2019 EXAM PARAMETERS: NUMBER OF VIEWS: two views TECHNIQUE: Digital Frontal and Lateral radiographic views of the chest acquired. RADIATION DOSE: NA LIMITATIONS: none FINDINGS: LUNGS AND PLEURA: There is pleural thickening possible residual effusion in the right cast phrenic angle. Lung moss are otherwise clear. No pneumothorax. Aeration in the right base is si gnificantly improved. MEDIASTINUM AND HILAR STRUCTURES: No masses or contour abnormalities. HEART AND VASCULAR STRUCTURES: Heart is enlarged. No failure. BONES: No acute findings. HARDWARE: None in the chest. OTHER: No other significant finding. IMPRESSION: 1. Stable cardiomegaly. No failure. 2. Markedly improved aeration in the right base with small residual pleural effusion and/or pleural thickening. TECHNICAL DOCUMENTATION: JOB ID: [id number] 2011 [employer]- All Rights Reserved Reading location - IP/workstation name: [email or web address]
--- NOTE | 2019-08-24 17:03 | ER Document Report ---
ED General - General Chief Complaint: Leg Swelling Stated Complaint: LEGS SWELLING Time Seen by Provider: 08/24/19 15:31 TRAVEL OUTSIDE OF THE [place] IN LAST 30 DAYS: No - HPI Notes: Patient is a 49-year-old female who presents to the emergency department for evaluation of lower extremity edema. Patient is a very poor historian, as his son. Evidently intermittently she has been having chest pain when she lays down to bed at night. She was actually admitted to the hospital recently for an exacerbation of her congestive heart failure. After being discharged patient's legs were not as edematous, they have been getting progressively more edematous over the last several days. Son states she has been taking her medications as prescribed. - Related Data Allergies/Adverse Reactions: No Known Allergies Allergy (Verified 08/08/19 14:00) Home Medications: Aspirin 81 mg daily, metformin 1 g twice daily, Lantus, Lipitor 40 mg daily, Plavix 75 mg daily, metoprolol XL 50 mg daily, lisinopril 40 mg daily Past Medical History - General Information source: Patient, Relative - Social History Smoking Status: Never Smoker Family History: Reviewed & Not Pertinent, Other Patient has suicidal ideation: No Patient has homicidal ideation: No - Past Medical History Cardiac Medical History: Reports: Hx Congestive Heart Failure, Hx Coronary Artery Disease, Hx Heart Attack, Hx Hypercholesterolemia, Hx Hypertension, Hx Heart Murmur Pulmonary Medical History: Denies: Hx Asthma, Hx COPD Neurological Medical History: Denies: Hx Seizures Endocrine Medical History: Reports: Hx Diabetes Mellitus Type 1, Hx Diabetes Mellitus Type 2. Denies: Hx Hyperthyroidism, Hx Hypothyroidism Renal/ Medical History: Denies: Hx Peritoneal Dialysis GI Medical History: Denies: Hx Cirrhosis, Hx Hepatitis Musculoskeletal Medical History: Denies Hx Arthritis, Denies Hx Gout Skin Medical History: Denies Hx Eczema, Denies Hx Psoriasis Psychiatric Medical History: Denies: Hx Depression Infectious Medical History: Denies: Hx Hepatitis Past Surgical History: Reports: Hx Cardiac Catheterization, Hx Cholecystectomy, Hx Coronary Stent - Immunizations Hx Diphtheria, Pertussis, Tetanus Vaccination: Yes Review of Systems - Review of Systems Cardiovascular: See HPI Respiratory: See HPI Musculoskeletal: See HPI Physical Exam - Vital signs Vitals: Temp Pulse Resp BP Pulse Ox 97.4 F 89 20 162/112 H 100 08/24/19 13:19 08/24/19 13:19 08/24/19 13:19 08/24/19 13:19 08/24/19 13:19 - Notes Notes: This is a 49-year-old female who appears older than her stated age in no acute distress. She is able to answer simple questions with monosyllabic responses. Vital signs reviewed, please refer to chart. Head is normocephalic, atraumatic. Pupils equal round, reactive to light. Neck is supple without meningismus. Heart is regular rate and rhythm. Lungs are clear to auscultation bilaterally. Abdomen is soft, diffusely tender without rebound or guarding, normoactive bowel sounds throughout. Extremities without cyanosis, clubbing. She does have 3+ pitting edema noted to bilateral lower extremities, tracking all the way to the thigh. Posterior calves are nontender. Peripheral pulses are equal. Skin is warm and dry. Patient is awake, alert, cooperative with examiner. Course - Re-evaluation Re-evalutation: 08/24/19 17:07 Patient presents to the emergency department for evaluation. A son and patient were not very good historians, I did delve deeper into the history of this patient from her last admission. It seems that she has some issues with compliance. She has a known history of congestive heart failure, last EF was 30%. Her lungs, however, are clear. Her chest x-ray looks improved. Awaiting blood work. Because of the lower extremity edema and her hemiparesis resulting in decreased ambulation, I am inclined to repeat her Doppler studies. These were ordered. Patient is stable at this time, we will continue to monitor. 08/24/19 22:57 Patient was given IV Lasix here. I was concerned, however, about giving her too much that she is already hyponatremic. I spoke with Dr. Garcia in regards to this patient. He came and evaluated the patient. She was not sent home on Lasix. She has not been compliant with dietary restrictions, fluid restrictions etc. Her troponin is intermediately elevated and still moderately climbing. Given this information he will admit her for further care. - Vital Signs Vital signs: Temp Pulse Resp BP Pulse Ox 98.2 F 84 19 185/106 H 95 08/24/19 19:42 08/24/19 19:42 08/24/19 21:01 08/24/19 21:01 08/24/19 21:01 - Laboratory Result Diagrams: 08/24/19 17:05 08/24/19 17:05 Laboratory results interpreted by me: 08/24/19 08/24/19 08/24/19 17:05 17:05 19:01 RDW 16.9 H PT Sodium 131.9 L Carbon Dioxide 20 L Creatinine 0.50 L Total Bilirubin 2.0 H Direct Bilirubin 1.2 H AST 49 H Alkaline Phosphatase 224 H NT-Pro-B Natriuret Pep 8280 H Total Protein 8.4 H Albumin 3.3 L 08/24/19 20:47 RDW PT 15.8 H Sodium Carbon Dioxide Creatinine Total Bilirubin Direct Bilirubin AST Alkaline Phosphatase NT-Pro-B Natriuret Pep Total Protein Albumin - EKG Interpretation by Me Additional EKG results interpreted by me: 08/24/19 22:57 Sinus mechanism with rate of 81 bpm. Bigeminy. Normal axis and intervals. Diffuse T wave changes concerning for possible ischemia, but no significant jodi nge compared to prior study. Discharge - Discharge Clinical Impression: Chronic combined systolic and diastolic congestive heart failure, Poor historian, Noncompliance with medication regimen, Peripheral edema Condition: Stable Disposition: ADMITTED INPATIENT Admitting Provider: Jose (Hospitalist) Unit Admitted: Telemetry Forms: Return to Work
[2019-08-24 17:28] LABS: ABSOLUTE BASOPHILS # (AUTO) 0.1 10^3/uL (0.0-0.2); ABSOLUTE LYMPHOCYTES (AUTO) 2.2 10^3/uL (0.5-4.7); ABSOLUTE MONOCYTES (AUTO) 0.5 10^3/uL (0.1-1.4); ABSOLUTE NEUT (AUTO) 3.3 10^3/uL (1.7-8.2); BASOPHILS % (AUTO) 1.5 % (0-2); EOSINOPHILS % (AUTO) 0.6 % (0-6); HEMATOCRIT 38.7 % (36.0-47.0); HEMOGLOBIN 12.7 g/dL (12.0-15.5); LYMPHOCYTES % (AUTO) 36.5 % (13-45); MEAN CORPUSCULAR HEMOGLOBIN 27.2 pg (27.0-33.4); MEAN CORPUSCULAR HGB CONC 32.9 g/dL (32.0-36.0); MEAN CORPUSCULAR VOLUME 83 fl (80-97); MONOCYTES % (AUTO) 7.9 % (3-13); RED BLOOD COUNT 4.69 10^6/uL (3.72-5.28); RED CELL DISTRIBUTION WIDTH 16.9 % (11.5-14.0); SEGMENTED NEUTROPHILS % (AUTO) 53.5 % (42-78); TOTAL CELLS COUNTED % (AUTO) 100 %; WHITE BLOOD COUNT 6.1 10^3/uL (4.0-10.5)
[2019-08-24 17:44] LABS: ALBUMIN 3.3 g/dL (3.5-5.0); ALKALINE PHOSPHATASE 224 U/L (38-126); ANION GAP 12 (5-19); ASPARTATE AMINO TRANSFERASE 49 U/L (14-36); BILIRUBIN,DIRECT 1.2 mg/dL (0.0-0.4); BLOOD UREA NITROGEN 14 mg/dL (7-20); CALCIUM 8.6 mg/dL (8.4-10.2); CARBON DIOXIDE 20 mmol/L (22-30); CHLORIDE 100 mmol/L (98-107); GLUCOSE 93 mg/dL (75-110); POTASSIUM 4.2 mmol/L (3.6-5.0); TOTAL PROTEIN 8.4 g/dL (6.3-8.2)
[2019-08-24 17:46] LABS: PLATELET COUNT 176 10^3/uL (150-450)
--- NOTE | 2019-08-24 18:20 | EKG REPORT ---
SEVERITY:- ABNORMAL ECG - SINUS RHYTHM VENTRICULAR TRIGEMINY PROBABLE LEFT ATRIAL ABNORMALITY NONSPECIFIC T ABNORMALITIES, DIFFUSE LEADS : Confirmed by: Celine Dorsey MD 24-Aug-2019 18:19:58
[2019-08-24 19:54] LABS: TROPONIN I 0.081 ng/mL
[2019-08-24] MEDS ORDERED: ASPIRIN 81 MG TABLET, CHEWABLE PO ONE (20:05)
[2019-08-24 21:01] LABS: INTERNATIONAL RATION (INR) 1.25; PROTHROMBIN TIME 15.8 SEC (11.4-15.4)
--- NOTE | 2019-08-24 21:25 | RADIOLOGY REPORT (SQ) ---
US LOWER EXTREMITY VEINS EXAM DATE: 08/24/2019 4:59 PM [facility] HISTORY: Leg pain and swelling. COMPARISON: None. TECHNIQUE: Verma-scale, color Doppler and spectral Doppler images of the bilateral lower extremity veins were obtained. FINDINGS: RIGHT: The right common femoral, superficial femoral and popliteal veins are patent and compressible. Normal augmentation and color Doppler blood flow in the aforementioned veins. The visualized calf veins are also patent. Diffuse subcutaneous edema. LEFT: The left common femoral, superficial femoral and popliteal veins are patent and compressible. Normal augmentation and color Doppler blood flow in the aforementioned veins. The visualized calf veins are also patent. Diffuse subcutaneous edema. IMPRESSION: No evidence of deep venous thrombosis in the bilateral lower extremities.
[2019-08-24] MEDS ORDERED: FUROSEMIDE INJ/PF 40 MG/4 ML SDV IV ONE (22:13)
[2019-08-24] MEDS ORDERED: MAG HYDROX/AL HYDROX/SIMETH SUSP 30 ML UDCUP PO PRN (23:05)
[2019-08-24] MEDS ORDERED: ACETAMINOPHEN 325 MG TABLET PO PRN (23:05)
[2019-08-24] MEDS ORDERED: DEXTROSE 50%-WATER 25 GM/50 ML DISP.SYRIN IV PRN ×2 (23:05)
[2019-08-24] MEDS ORDERED: GLUCAGON,HUMAN RECOMB 1 MG INJ IM PRN (23:05)
[2019-08-24] MEDS ORDERED: DEXTROSE 40% GEL 15 GM TUBE PO PRN ×2 (23:05)
[2019-08-24 23:11] LABS: APPEARANCE,URINE CLEAR; BILIRUBIN,URINE NEGATIVE (NEGATIVE); COLOR,URINE YELLOW; GLUCOSE, URINE NEGATIVE (NEGATIVE); KETONES,URINE NEGATIVE (NEGATIVE); LEUKOCYTE ESTERASE,URINE NEGATIVE (NEGATIVE); NITRITE,URINE NEGATIVE (NEGATIVE); PROTEIN,URINE NEGATIVE (NEGATIVE); URINE SPECIFIC GRAVITY 1.004
[2019-08-24] MEDS: POTASSIUM CHLORIDE 10 MEQ TABLET.ER PO SCH (23:58)
[2019-08-24] MEDS: FUROSEMIDE INJ/PF 40 MG/4 ML SDV IV SCH (23:58)
[2019-08-25] MEDS ORDERED: INFLUENZA QUAD (6MOS+) 2019-20 VAC 0.5 ML SYR IM ONE (04:59)
--- NOTE | 2019-08-25 05:39 | PDOC H&P ---
History of Present Illness Admission Date/PCP: 08/24/19 23:36 Patient complains of: Leg swelling History of Present Illness: PHILLIP DORANTES is a 49 year old female who is a poor historian secondary to history including CVA, systolic heart failure, diabetes and bedbound state who is chronically debilitated. Patient son is at bedside who is her primary caregiver and states her legs have had increasing edema from discharge August 10. He is also unaware of any dietary or fluid restrictions. He was not present for congestive heart failure education prior to previous discharge. He is otherwise unclear as to her medication compliance. Patient is awake and alert she denies pain lying flat with tachypnea, retractions and uncontrolled systolic blood pressure in the 190s. She receives IV Lasix and referred to the hospitalist for admission. Past Medical History Cardiac Medical History: Reports: Congestive Heart Failure, Coronary Artery Disease, Myocardial Infarction, Hyperlipidema, Hypertension, Heart Murmur Pulmonary Medical History: Denies: Asthma, Chronic Obstructive Pulmonary Disease (COPD) Neurological Medical History: Denies: Seizures Endocrine Medical History: Reports: Diabetes Mellitus Type 1, Diabetes Mellitus Type 2 Denies: Hyperthyroidism, Hypothyroidism GI Medical History: Denies: Cirrhosis, Hepatitis Musculoskeltal Medical History: Denies: Arthritis, Gout Skin Medical History: Denies: Eczema, Psoriasis Psychiatric Medical History: Denies: Depression Hematology: Denies: Anemia, Bleeding Tendencies Past Surgical History Past Surgical History: Reports: Cardiac Catheterization, Cholecystectomy, Coronary Stent Social History Information Source: Relative, [facility] Records Lives with: Family Smoking Status: Former Smoker Electronic Cigarette use?: No Frequency of Alcohol Use: None Hx Recreational Drug Use: No Drugs: None Hx Prescription Drug Abuse: No - Advance Directive Resuscitation Status: Full Code Family History Family History: DM, Other Parental Family History Reviewed: Yes Children Family History Reviewed: Yes Sibling(s) Family History Reviewed.: Yes Medication/Allergy Home Medications: Aspirin [Aspirin 81 mg Chewable Tablet] 81 mg PO DAILY 30 Days #30 tab.chew 08/10/19 Atorvastatin Calcium [Lipitor 40 mg Tablet] 40 mg PO QHS 30 Days #30 tablet 08/10/19 Clopidogrel Bisulfate [Plavix 75 mg Tablet] 75 mg PO DAILY 30 Days #30 tablet 08/10/19 Insulin Glargine,Hum.rec.anlog [Lantus Insulin 100 Unit/1 ml 10 ml] 5 unit SUBCUT QHS 30 Days #1 unit 08/10/19 Lisinopril [Zestril] 40 mg PO DAILY 30 Days #30 tablet 08/10/19 Metformin HCl [Glucophage] 1,000 mg PO BID 30 Days #60 tablet 08/10/19 Metoprolol Succinate [Toprol Xl 50 mg Tab.sr] 100 mg PO Q12 30 Days #60 tab.sr.24h 08/10/19 Allergies/Adverse Reactions: No Known Allergies Allergy (Verified 08/08/19 14:00) Review of Systems ROS unobtainable: Due to mental status Physical Exam Vital Signs: Temp Pulse Resp BP Pulse Ox 98.4 F 92 22 H 129/90 H 100 08/25/19 01:57 08/25/19 04:26 08/25/19 04:26 08/25/19 04:26 08/25/19 04:26 Intake & Output 08/23/19 08/24/19 08/25/19 11:59 11:59 11:59 Output Total 6400 Balance -6400 Weight 75 kg General appearance: PRESENT: cooperative, disheveled, mild distress, obese, well-developed, well-nourished Head exam: PRESENT: atraumatic, normocephalic Eye exam: PRESENT: conjunctiva pink, EOMI, PERRLA. ABSENT: scleral icterus Ear exam: PRESENT: normal external ear exam Mouth exam: PRESENT: moist, tongue midline Neck exam: PRESENT: JVD. ABSENT: carotid bruit, lymphadenopathy, thyromegaly Respiratory exam: PRESENT: crackles, retraction, tachypnea. ABSENT: rales, rhonchi, wheezes Cardiovascular exam: PRESENT: RRR. ABSENT: diastolic murmur, rubs, systolic murmur Pulses: PRESENT: normal dorsalis pedis pul Vascular exam: PRESENT: normal capillary refill GI/Abdominal exam: PRESENT: normal bowel sounds, soft. ABSENT: distended, guarding, mass, organolmegaly, rebound, tenderness Rectal exam: PRESENT: deferred Extremities exam: PRESENT: pedal edema, tenderness, +2 edema. ABSENT: calf tenderness, clubbing Neurological exam: PRESENT: alert, awake, oriented to person, oriented to place, oriented to situation, CN II-XII grossly intact. ABSENT: motor sensory deficit Psychiatric exam: PRESENT: appropriate affect, normal mood. ABSENT: homicidal ideation, suicidal ideation Skin exam: PRESENT: dry, intact, warm. ABSENT: cyanosis, rash Results Laboratory Results: 08/24/19 17:05 08/24/19 17:05 08/24/19 08/24/19 08/24/19 17:05 17:05 21:20 WBC 6.1 RBC 4.69 Hgb 12.7 Hct 38.7 MCV 83 MCH 27.2 MCHC 32.9 RDW 16.9 H Plt Count 176 Seg Neutrophils % 53.5 Sodium 131.9 L Potassium 4.2 Chloride 100 Carbon Dioxide 20 L Anion Gap 12 BUN 14 Creatinine 0.50 L Est GFR ( Amer) > 60 Glucose 93 Calcium 8.6 Total Bilirubin 2.0 H AST 49 H Alkaline Phosphatase 224 H Total Protein 8.4 H Albumin 3.3 L Lipase 138.3 Urine Color YELLOW Urine Appearance CLEAR Urine pH 6.0 Ur Specific [place] 1.004 Urine Protein NEGATIVE Urine Glucose (UA) NEGATIVE Urine Ketones NEGATIVE Urine Blood SMALL H Urine Nitrite NEGATIVE Ur Leukocyte Esterase NEGATIVE Urine WBC (Auto) 0 Urine RBC (Auto) 1 08/24/19 08/24/19 19:01 20:47 Troponin I 0.081 0.085 NT-Pro-B Natriuret Pep 8280 H Impressions: Chest X-Ray 08/24/19 15:38 IMPRESSION: 1. Stable cardiomegaly. No failure. 2. Markedly improved aeration in the right base with small residual pleural effusion and/or pleural thickening. Venous Doppler Study 08/24/19 16:59 IMPRESSION: No evidence of deep venous thrombosis in the bilateral lower extremities. Assessment and Plan - Diagnosis (1) Elevated troponin Is this a current diagnosis for this admission?: Yes Plan: Likely secondary to uncontrolled hypertension, denies pain. Follow-up troponin to verify downtrending. (2) Chronic combined systolic and diastolic congestive heart failure Is this a current diagnosis for this admission?: Yes Plan: CHF care set deployed, education with patient's son as he is primary caregiver. (3) Noncompliance with medication regimen Is this a current diagnosis for this admission?: Yes Plan: Education with son as he is primary caregiver (4) Peripheral edema Is this a current diagnosis for this admission?: Yes Plan: SAMUEL stockings (5) Diabetes mellitus type 2 in obese Is this a current diagnosis for this admission?: Yes Plan: Outpatient regiment with Humalog sliding scale. - Time Time Spent with patient: 25-34 minutes - Inpatient Certification Medical Necessity: Need Close Monitoring Due to Risk of Patient Decompensation
[2019-08-25] MEDS: HEPARIN SOD (PORCINE) 5,000 UNIT/ML 1 ML VIAL SUBCUT SCH ×3 (06:38→22:23)
[2019-08-25] MEDS: INSULIN LISPRO 100 UNIT/ML 3 ML VIAL SUBCUT SCH ×3 (07:06→17:48)
[2019-08-25 07:45] LABS: ANION GAP 9 (5-19); BLOOD UREA NITROGEN 14 mg/dL (7-20); CALCIUM 8.6 mg/dL (8.4-10.2); CARBON DIOXIDE 26 mmol/L (22-30); CHLORIDE 100 mmol/L (98-107); GLUCOSE 88 mg/dL (75-110)
[2019-08-25 07:51] LABS: POTASSIUM 3.3 mmol/L (3.6-5.0)
[2019-08-25] MEDS: FUROSEMIDE INJ/PF 40 MG/4 ML SDV IV SCH ×2 (11:14→22:23)
[2019-08-25] MEDS: DOCUSATE SODIUM 100 MG CAPSULE PO SCH (11:15)
[2019-08-25] MEDS: POTASSIUM CHLORIDE 10 MEQ TABLET.ER PO SCH ×2 (11:15→22:23)
[2019-08-25] MEDS: GABAPENTIN 100 MG CAPSULE PO SCH ×2 (14:17→22:23)
--- NOTE | 2019-08-25 19:19 | PDOC PROGRESS REPORT ---
Subjective Progress Note for:: 08/25/19 Subjective:: PHILLIP DORANTES is a 49 year old female who is a poor historian secondary to history including CVA, systolic heart failure, diabetes and bedbound state who is chronically debilitated who was admitted 08/24/2023 CHF exacerbation. Patient is seen on morning rounds while still in the emergency department. She was found resting in bed, comfortably, on room air. She reports that she continues to have bilateral extremity discomfort and edema increased from her baseline. Otherwise, she denies fever, chest pain, palpitations, dyspnea, orthopnea, cough, abdominal distention, abdominal pain, nausea vomiting diarrhea. She has no questions or concerns at this time. No concerns per nursing. Reason For Visit: HEART FAILURE Physical Exam Vital Signs: Temp Pulse Resp BP Pulse Ox 97.6 F 99 20 113/36 L 100 08/25/19 13:05 08/25/19 14:00 08/25/19 13:05 08/25/19 13:05 08/25/19 13:05 Intake & Output 08/24/19 08/25/19 08/26/19 06:59 06:59 06:59 Intake Total 50 Output Total 7150 Balance -7100 Weight 75 kg General appearance: PRESENT: no acute distress, cooperative, disheveled, well- developed, well-nourished Head exam: PRESENT: atraumatic, normocephalic Eye exam: PRESENT: conjunctiva pink, EOMI, PERRLA. ABSENT: scleral icterus Ear exam: PRESENT: normal external ear exam Mouth exam: PRESENT: moist, tongue midline Neck exam: PRESENT: JVD. ABSENT: carotid bruit, lymphadenopathy, thyromegaly Respiratory exam: PRESENT: crackles, prolonged expiratory phas, symmetrical, unlabored, other - Room air. ABSENT: rales, rhonchi, wheezes Cardiovascular exam: PRESENT: RRR. ABSENT: diastolic murmur, rubs, systolic murmur Vascular exam: PRESENT: normal capillary refill GI/Abdominal exam: PRESENT: normal bowel sounds, soft. ABSENT: distended, guarding, mass, organolmegaly, rebound, tenderness Rectal exam: PRESENT: deferred Gentrourinary exam: PRESENT: indwelling catheter Extremities exam: PRESENT: full ROM, +2 edema - BLE. ABSENT: calf tenderness, clubbing, pedal edema Neurological exam: PRESENT: alert, awake, oriented to person, oriented to place, oriented to time, oriented to situation, CN II-XII grossly intact. ABSENT: motor sensory deficit Psychiatric exam: PRESENT: appropriate affect, normal mood. ABSENT: homicidal ideation, suicidal ideation Skin exam: PRESENT: dry, intact, warm. ABSENT: cyanosis, rash Results Laboratory Results: 08/24/19 17:05 08/25/19 06:16 08/24/19 08/25/19 21:20 06:16 Sodium 135.2 L Potassium 3.3 L Chloride 100 Carbon Dioxide 26 Anion Gap 9 BUN 14 Creatinine 0.53 Est GFR ( Amer) > 60 Glucose 88 Calcium 8.6 Urine Color YELLOW Urine Appearance CLEAR Urine pH 6.0 Ur Specific [place] 1.004 Urine Protein NEGATIVE Urine Glucose (UA) NEGATIVE Urine Ketones NEGATIVE Urine Blood SMALL H Urine Nitrite NEGATIVE Ur Leukocyte Esterase NEGATIVE Urine WBC (Auto) 0 Urine RBC (Auto) 1 08/24/19 08/24/19 08/25/19 19:01 20:47 06:16 Troponin I 0.081 0.085 0.070 NT-Pro-B Natriuret Pep 8280 H Impressions: Chest X-Ray 08/24/19 15:38 IMPRESSION: 1. Stable cardiomegaly. No failure. 2. Markedly improved aeration in the right base with small residual pleural effusion and/or pleural thickening. Venous Doppler Study 08/24/19 16:59 IMPRESSION: No evidence of deep venous thrombosis in the bilateral lower extremities. Assessment and Plan - Diagnosis (1) Elevated troponin Is this a current diagnosis for this admission?: Yes Plan: Likely secondary to CHF. Serial troponins are stable with slight downward trend. Patient denies chest pain. No abnormal findings on EKG. No longer following. (2) Peripheral edema Is this a current diagnosis for this admission?: Yes Plan: Secondary to #1. SAMUEL stockings Remaining evaluation and management as above. (3) Diabetes mellitus type 2 in obese Is this a current diagnosis for this admission?: Yes Plan: Cardiac and consistent carb diet. Accu-Cheks before meals and at bedtime with sliding scale insulin. Holding home dose metformin while admitted. Registered dietitian patient educator consulted. (4) Noncompliance with medication regimen Is this a current diagnosis for this admission?: Yes Plan: Education Patient educator, registered dietitian, Discharge planning, patient navigator consulted. (5) Chronic combined systolic and diastolic congestive heart failure Is this a current diagnosis for this admission?: Yes Plan: Patient is admitted to the medical floor on continuous cardiac telemetry. We will continue home dose Toprol, lisinopril, Plavix, atorvastatin, aspirin. IV furosemide for diuresis. Cardiac diet. Daily weights, strict I&O's. Patient educator and registered dietitian consulted. - Time Time Spent with patient: 25-34 minutes Medications reviewed and adjusted accordingly: Yes Anticipated discharge: Home with Homehealth Within: within 48 hours
[2019-08-25] MEDS ORDERED: ATORVASTATIN CALCIUM 40 MG TABLET PO SCH (22:00)
[2019-08-25] MEDS ORDERED: INSULIN GLARGINE,HUM.REC.ANLOG 1,000 UNIT/10 ML VIAL SUBCUT SCH (22:00)
[2019-08-25] MEDS: METOPROLOL SUCCINATE 50 MG TAB.SR.24H PO SCH (22:22)
[2019-08-26] MEDS: HEPARIN SOD (PORCINE) 5,000 UNIT/ML 1 ML VIAL SUBCUT SCH (06:21)
[2019-08-26] MEDS: GABAPENTIN 100 MG CAPSULE PO SCH (06:21)
[2019-08-26] MEDS: INSULIN LISPRO 100 UNIT/ML 3 ML VIAL SUBCUT SCH ×2 (07:22→11:47)
[2019-08-26] MEDS: POTASSIUM CHLORIDE 10 MEQ TABLET.ER PO SCH (09:32)
[2019-08-26] MEDS: FUROSEMIDE INJ/PF 40 MG/4 ML SDV IV SCH (09:32)
[2019-08-26] MEDS: METOPROLOL SUCCINATE 50 MG TAB.SR.24H PO SCH (09:32)
[2019-08-26] MEDS: DOCUSATE SODIUM 100 MG CAPSULE PO SCH (09:32)
[2019-08-26] MEDS ORDERED: ASPIRIN 81 MG TABLET, CHEWABLE PO SCH (10:00)
[2019-08-26] MEDS ORDERED: (PENDING PHARMACY ID) (Lisinopril [Zestril] 40 MG) PO SCH (10:00)
[2019-08-26] MEDS ORDERED: LISINOPRIL 10 MG TABLET PO SCH (10:00)
[2019-08-26] MEDS ORDERED: CLOPIDOGREL BISULFATE 75 MG TABLET PO SCH (10:00)
[2019-08-26 13:01] LABS: ANION GAP 9 (5-19); BLOOD UREA NITROGEN 15 mg/dL (7-20); CALCIUM 8.2 mg/dL (8.4-10.2); CARBON DIOXIDE 28 mmol/L (22-30); CHLORIDE 98 mmol/L (98-107); GLUCOSE 105 mg/dL (75-110); POTASSIUM 3.6 mmol/L (3.6-5.0)
[2019-08-26 13:21] VITALS: BP 113/36
--- NOTE | 2019-08-27 18:30 | PDOC DISCHARGE SUMMARY ---
Impression - Admit/DC Date/PCP Admission Date/Primary Care Provider: 08/24/19 23:36 Discharge Date: 08/26/19 - Discharge Diagnosis (1) Elevated troponin Is this a current diagnosis for this admission?: Yes (2) Peripheral edema Is this a current diagnosis for this admission?: Yes (3) Diabetes mellitus type 2 in obese Is this a current diagnosis for this admission?: Yes (4) Noncompliance with medication regimen Is this a current diagnosis for this admission?: Yes (5) Chronic combined systolic and diastolic congestive heart failure Is this a current diagnosis for this admission?: Yes - Additional Information Resuscitation Status: Full Code Discharge Diet: Cardiac, Diabetic Discharge Activity: Activity As Tolerated, Balance Activity w/Rest Referrals: BLAYNE ASHLEY MD [ACTIVE STAFF] - 08/30/19 1:30 pm Prescriptions: Furosemide [Lasix] 20 mg PO DAILY #30 tablet Gabapentin [Neurontin 100 mg Capsule] 100 mg PO Q8 #90 capsule Home Medications: Aspirin [Aspirin 81 mg Chewable Tablet] 81 mg PO DAILY 30 Days #30 tab.chew 08/10/19 Atorvastatin Calcium [Lipitor 40 mg Tablet] 40 mg PO QHS 30 Days #30 tablet 08/10/19 Clopidogrel Bisulfate [Plavix 75 mg Tablet] 75 mg PO DAILY 30 Days #30 tablet 08/10/19 Insulin Glargine,Hum.rec.anlog [Lantus Insulin 100 Unit/1 ml 10 ml] 5 unit SUBCUT QHS 30 Days #1 unit 08/10/19 Lisinopril [Zestril] 40 mg PO DAILY 30 Days #30 tablet 08/10/19 Metoprolol Succinate [Toprol Xl 50 mg Tab.sr] 100 mg PO Q12 30 Days #60 tab. sr.24h 08/10/19 Metformin HCl [Glucophage] 1,000 mg PO BIDBS 08/25/19 Acetaminophen [Tylenol 325 mg Tablet] 650 mg PO Q4HP PRN tablet 08/26/19 Docusate Sodium [Colace 100 mg Capsule] 100 mg PO DAILY capsule 08/26/19 Furosemide [Lasix] 20 mg PO DAILY #30 tablet 08/26/19 Gabapentin [Neurontin 100 mg Capsule] 100 mg PO Q8 #90 capsule 08/26/19 History of Present Illiness History of Present Illness: Per H&P by Dr. Garcia: PHILLIP DORANTES is a 49 year old female who is a poor historian secondary to history including CVA, systolic heart failure, diabetes and bedbound state who is chronically debilitated. Patient son is at bedside who is her primary caregiver and states her legs have had increasing edema from discharge August 10. He is also unaware of any dietary or fluid restrictions. He was not present for congestive heart failure education prior to previous discharge. He is otherwise unclear as to her medication compliance. Patient is awake and alert she denies pain lying flat with tachypnea, retractions and uncontrolled systolic blood pressure in the 190s. She receives IV Lasix and referred to the hospitalist for admission. Hospital Course Hospital Course: (1) Chronic combined systolic and diastolic congestive heart failure Echocardiogram (08/09/19) LVEF 30%, mild to moderate dysfunction, moderate pulmonary hypertension. Acute exacerbation has resolved; no maintaining oxygen saturations on room air, comfortable lying supine with resolution of her pedal edema. Patient was admitted to the medical floor on continuous cardiac telemetry. We continued home dose Toprol, lisinopril, Plavix, atorvastatin, aspirin. She received IV furosemide for diuresis. Patient educator and registered dietitian consulted for patient education regarding dietary restrictions. (2) Elevated troponin Secondary to CHF. Serial troponins are stable with slight downward trend. Patient denies chest pain. No abnormal findings on EKG. (3) Peripheral edema Resolved. Secondary to #1. SAMUEL stockings Remaining evaluation and management as above. (4) Diabetes mellitus type 2 in obese Patient is discharged on her home medication regiment with recommendations to strictly adhere to a cardiac and consistent carb diet. She met with the patient educator prior to discharge. (4) Noncompliance with medication regimen Education Patient educator, registered dietitian, Discharge planning, patient navigator consulted. Physical Exam Vital Signs: Temp Pulse Resp BP Pulse Ox 97.7 F 76 12 113/36 L 100 08/26/19 13:18 08/26/19 13:18 08/26/19 13:18 08/26/19 13:18 08/26/19 13:18 Intake & Output 08/26/19 08/27/19 08/28/19 06:59 06:59 06:59 Intake Total 540 480 Output Total 3500 2100 Balance -2960 -1620 Weight 74.2 kg 74.2 kg General appearance: PRESENT: no acute distress, cooperative, disheveled, well- developed, well-nourished, other - overweight Head exam: PRESENT: atraumatic, normocephalic Eye exam: PRESENT: conjunctiva pink, EOMI, PERRLA. ABSENT: scleral icterus Ear exam: PRESENT: normal external ear exam Mouth exam: PRESENT: moist, tongue midline Neck exam: ABSENT: carotid bruit, JVD, lymphadenopathy, thyromegaly Respiratory exam: PRESENT: clear to auscultation ac, symmetrical, unlabored, other - room air. ABSENT: crackles, rales, rhonchi, wheezes Cardiovascular exam: PRESENT: RRR. ABSENT: diastolic murmur, rubs, systolic murmur Pulses: PRESENT: normal dorsalis pedis pul Vascular exam: PRESENT: normal capillary refill GI/Abdominal exam: PRESENT: normal bowel sounds, soft. ABSENT: distended, guarding, mass, organolmegaly, rebound, tenderness Rectal exam: PRESENT: deferred Extremities exam: PRESENT: full ROM, pedal edema - trace bilaterally. ABSENT: calf tenderness, clubbing Neurological exam: PRESENT: alert, awake, oriented to person, oriented to place, oriented to time, oriented to situation, CN II-XII grossly intact. ABSENT: motor sensory deficit Psychiatric exam: PRESENT: appropriate affect, normal mood. ABSENT: homicidal ideation, suicidal ideation Skin exam: PRESENT: dry, intact, warm. ABSENT: cyanosis, rash Results Laboratory Results: WBC 6.1 10^3/uL (4.0-10.5) 08/24/19 17:05 RBC 4.69 10^6/uL (3.72-5.28) 08/24/19 17:05 Hgb 12.7 g/dL (12.0-15.5) 08/24/19 17:05 Hct 38.7 % (36.0-47.0) 08/24/19 17:05 MCV 83 fl (80-97) 08/24/19 17:05 MCH 27.2 pg (27.0-33.4) 08/24/19 17:05 MCHC 32.9 g/dL (32.0-36.0) 08/24/19 17:05 RDW 16.9 % (11.5-14.0) H 08/24/19 17:05 Plt Count 176 10^3/uL (150-450) 08/24/19 17:05 Lymph % (Auto) 36.5 % (13-45) 08/24/19 17:05 Steele % (Auto) 7.9 % (3-13) 08/24/19 17:05 Eos % (Auto) 0.6 % (0-6) 08/24/19 17:05 Baso % (Auto) 1.5 % (0-2) 08/24/19 17:05 Absolute Neuts (auto) 3.3 10^3/uL (1.7-8.2) 08/24/19 17:05 Absolute Lymphs (auto) 2.2 10^3/uL (0.5-4.7) 08/24/19 17:05 Absolute Monos (auto) 0.5 10^3/uL (0.1-1.4) 08/24/19 17:05 Absolute Eos (auto) 0.0 10^3/uL (0.0-0.6) 08/24/19 17:05 Absolute Basos (auto) 0.1 10^3/uL (0.0-0.2) 08/24/19 17:05 Seg Neutrophils % 53.5 % (42-78) 08/24/19 17:05 PT 15.8 SEC (11.4-15.4) H 08/24/19 20:47 INR 1.25 08/24/19 20:47 INR (Anticoag Therapy) Cancelled 08/24/19 19:01 Sodium 135.4 mmol/L (137-145) L 08/26/19 12:07 Potassium 3.6 mmol/L (3.6-5.0) 08/26/19 12:07 Chloride 98 mmol/L (98-107) 08/26/19 12:07 Carbon Dioxide 28 mmol/L (22-30) 08/26/19 12:07 Anion Gap 9 (5-19) 08/26/19 12:07 BUN 15 mg/dL (7-20) 08/26/19 12:07 Creatinine 0.47 mg/dL (0.52-1.25) L 08/26/19 12:07 Est GFR ( Amer) > 60 (>60) 08/26/19 12:07 Est GFR (Non-Af Amer) Cancelled 08/26/19 10:23 Est GFR (MDRD) Non-Af > 60 (>60) 08/26/19 12:07 Glucose 105 mg/dL (75-110) 08/26/19 12:07 POC Glucose 164 mg/dL (70-110) H 08/26/19 10:36 Calcium 8.2 mg/dL (8.4-10.2) L 08/26/19 12:07 Total Bilirubin 2.0 mg/dL (0.2-1.3) H 08/24/19 17:05 Direct Bilirubin 1.2 mg/dL (0.0-0.4) H 08/24/19 17:05 Neonat Total Bilirubin Not Reportable 08/24/19 17:05 Neonat Direct Bilirubin Not Reportable 08/24/19 17:05 Neonat Indirect Bili Not Reportable 08/24/19 17:05 AST 49 U/L (14-36) H 08/24/19 17:05 ALT 19 U/L (<35) 08/24/19 17:05 Alkaline Phosphatase 224 U/L (38-126) H 08/24/19 17:05 Troponin I 0.070 ng/mL 08/25/19 06:16 NT-Pro-B Natriuret Pep 8280 pg/mL (<125) H 08/24/19 19:01 Total Protein 8.4 g/dL (6.3-8.2) H 08/24/19 17:05 Albumin 3.3 g/dL (3.5-5.0) L 08/24/19 17:05 Lipase 138.3 U/L (23-300) 08/24/19 17:05 EGFR Cancelled 08/26/19 10:23 Urine Color YELLOW 08/24/19 21:20 Urine Appearance CLEAR 08/24/19 21:20 Urine pH 6.0 (5.0-9.0) 08/24/19 21:20 Ur Specific [place] 1.004 08/24/19 21:20 Urine Protein NEGATIVE mg/dL (NEGATIVE) 08/24/19 21:20 Urine Glucose (UA) NEGATIVE mg/dL (NEGATIVE) 08/24/19 21:20 Urine Ketones NEGATIVE mg/dL (NEGATIVE) 08/24/19 21:20 Urine Blood SMALL (NEGATIVE) H 08/24/19 21:20 Urine Nitrite NEGATIVE (NEGATIVE) 08/24/19 21:20 Urine Bilirubin NEGATIVE (NEGATIVE) 08/24/19 21:20 Urine Urobilinogen 4.0 mg/dL (<2.0) H 08/24/19 21:20 Ur Leukocyte Esterase NEGATIVE (NEGATIVE) 08/24/19 21:20 Urine WBC (Auto) 0 /HPF 08/24/19 21:20 Urine RBC (Auto) 1 /HPF 08/24/19 21:20 Urine Mucus (Auto) RARE /LPF 08/24/19 21:20 Urine Ascorbic Acid NEGATIVE (NEGATIVE) 08/24/19 21:20 08/24/19 08/24/19 08/25/19 19:01 20:47 06:16 Troponin I 0.081 0.085 0.070 NT-Pro-B Natriuret Pep 8280 H Impressions: Chest X-Ray 08/24/19 15:38 IMPRESSION: 1. Stable cardiomegaly. No failure. 2. Markedly improved aeration in the right base with small residual pleural effusion and/or pleural thickening. Venous Doppler Study 08/24/19 16:59 IMPRESSION: No evidence of deep venous thrombosis in the bilateral lower extremities. Plan Plan of Treatment: Follow up with Dr. Ashley within 1 week. Take medications as prescribed. Eat a low sodium diet. Weight daily and report any gain of >2lbs overnight to provider. Return to the emergency department as needed for concerning symptoms. Time Spent: Greater than 30 Minutes Stroke Is this a Stroke Patient?: No Acute Heart Failure - Is this a Heart Failure Patient?: Yes Documentation of LVEF assessment?: Yes LVEF < 40%?: Yes-if yes answer questions a through e a) Discharged on ACEI?: Yes b) Discharges on ARB?: No-document contraindications - on VI c) Discharged on ARNI?: No-Document Contraindications Reason(s) not discharged on ARNI: ACEI use within the prior 36 hours d) Discharged on evidence-based Beta tri(carvedilol, sustained release metoprolol succinate, or bisoprolol)?: Yes e) For LVEF <35%, discharged on Aldosterone antagonist?: No-document contraincations 3. Anticoagulant therapy for permanect/persistent/paraoxysmal Afib or Aflutter: N/A
== END 2019-08-26 13:50 | disposition home or self-care (01) ==
LOC: ER 13:14 → EH 23:36 → 4S 08-25 14:05
PROVIDERS: ADMIT Internal Medicine; ATTEND Internal Medicine
DX: R60.0 Localized edema (principal); I11.0 Hypertensive heart disease with heart failure; I50.43 Acute on chronic combined systolic (congestive) and diastolic (congestive) heart failure; I25.10 Atherosclerotic heart disease of native coronary artery without angina pectoris; E66.9 Obesity, unspecified; E11.9 Type 2 diabetes mellitus without complications; Z91.14 Patient's other noncompliance with medication regimen; I69.351 Hemiplegia and hemiparesis following cerebral infarction affecting right dominant side; I25.2 Old myocardial infarction; Z74.01 Bed confinement status; R79.89 Other specified abnormal findings of blood chemistry; Z95.5 Presence of coronary angioplasty implant and graft; Z87.891 Personal history of nicotine dependence; Z79.82 Long term (current) use of aspirin; Z79.899 Other long term (current) drug therapy; Z79.4 Long term (current) use of insulin; Z79.02 Long term (current) use of antithrombotics/antiplatelets; Z91.11 Patient's noncompliance with dietary regimen
CPT/HCPCS: 93005; 99285; 51702; 96374; 36415 ×3; 82962 ×2; 83690; 85025; 85610; 80048 ×2; 80053; 81001; 84484 ×2; 83880; 93970; 71046; 93010; G0378 ×4; J3490 ×11; J1644 ×2; J1940 ×3; J1815 ×2

== ENCOUNTER 2019-10-14 12:51 | Observation (INO) | payer MEDICAID ==
[2019-10-14] MEDS ORDERED: FUROSEMIDE INJ/PF 100 MG/10 ML SDV IV ONE (13:36)
[2019-10-14] MEDS ORDERED: NITROGLYCERIN 2% OINTMENT 1 GM PACKET TP ONE (13:36)
--- NOTE | 2019-10-14 13:39 | ER Document Report ---
ED General <LOUIS MISHRA JR - Last Filed: 10/14/19 17:58> - General TRAVEL OUTSIDE OF THE [place] IN LAST 30 DAYS: No <REBECCA THAO - Last Filed: 10/14/19 18:46> - General Stated Complaint: COUGH Notes: Patient is a 49-year-old female with a past medical history of CHF who presents to the emergency department with a chief complaint of shortness of breath. The patient is a poor historian. Unable to give much history. She is unsure how long this is been going on. Her son gave the nurses some history that she has CHF and they suspect she is not been taking her medicines. They deny any known sick contacts fevers or recent travel. Review of records suggest history of diabetes, hypertension, prior [place] with stenting and a prior CVA with residual right-sided deficits. (REBECCA THAO) - Related Data Allergies/Adverse Reactions: No Known Allergies Allergy (Verified 08/08/19 14:00) Past Medical History - Social History Smoking Status: Unknown if Ever Smoked Family History: DM, Other - Past Medical History Cardiac Medical History: Reports: Hx Congestive Heart Failure, Hx Coronary Artery Disease, Hx Heart Attack, Hx Hypercholesterolemia, Hx Hypertension, Hx Heart Murmur Pulmonary Medical History: Denies: Hx Asthma, Hx COPD Neurological Medical History: Denies: Hx Seizures Endocrine Medical History: Reports: Hx Diabetes Mellitus Type 1, Hx Diabetes Mellitus Type 2. Denies: Hx Hyperthyroidism, Hx Hypothyroidism Renal/ Medical History: Denies: Hx Peritoneal Dialysis GI Medical History: Denies: Hx Cirrhosis, Hx Hepatitis Musculoskeletal Medical History: Denies Hx Arthritis, Denies Hx Gout Skin Medical History: Denies Hx Eczema, Denies Hx Psoriasis Psychiatric Medical History: Denies: Hx Depression Infectious Medical History: Denies: Hx Hepatitis Past Surgical History: Reports: Hx Cardiac Catheterization, Hx Cholecystectomy, Hx Coronary Stent - Immunizations Hx Diphtheria, Pertussis, Tetanus Vaccination: Yes <REBECCA THAO - Last Filed: 10/14/19 18:46> Review of Systems - Review of Systems -: Yes ROS unobtainable due to patient's medical condition <REBECCA THAO - Last Filed: 10/14/19 18:46> Physical Exam - General General appearance: Alert In distress: None - HEENT Head: Normocephalic, Atraumatic Eyes: Normal Conjunctiva: Normal Extraocular movements intact: Yes Pupils: PERRL Mouth/Lips: Normal Mucous membranes: Moist - Respiratory Respiratory status: No respiratory distress Chest status: Nontender Breath sounds: Rales Chest palpation: Normal - Cardiovascular Rhythm: Regular Heart sounds: Normal auscultation - Abdominal Inspection: Striae, Obese Distension: Distended Bowel sounds: Hypoactive Tenderness: Tender - Extremities General upper extremity: Tender, Edema General lower extremity: Tender, Edema - Neurological Neuro grossly intact: Yes Cognition: Normal Floyd Coma Scale Eye Opening: Spontaneous [place] Coma Scale Verbal: Oriented [place] Coma Scale Motor: Obeys Commands [place] Coma Scale Total: 15 Speech: Normal - Psychological Associated symptoms: Normal affect, Normal mood - Skin Skin Temperature: Warm Skin Moisture: Dry Skin Color: Normal <REBECCA THAO - Last Filed: 10/14/19 18:46> - Vital signs Vitals: Resp BP Pulse Ox 0 L 100/77 100 10/14/19 13:16 10/14/19 13:16 10/14/19 13:16 - General Notes: Diffuse edema throughout consistent with anasarca (REBECCA THAO) Course - Laboratory Result Diagrams: 10/14/19 17:23 10/14/19 15:15 <LOUIS MISHRA JR - Last Filed: 10/14/19 17:58> - Laboratory Result Diagrams: 10/14/19 17:23 10/14/19 15:15 <REBECCA THAO - Last Filed: 10/14/19 18:46> - Re-evaluation Re-evalutation: 10/14/19 14:34 Spoke with the patient's son Cyril at [phone], he concurred with the previously assessed history from her prior records. He admits to "a couple heart attacks, a couple strokes, some problems with her liver, diabetes and heart failure". He states over the past week and a half she is swelled worse than ever before. He states usually her swelling is just in her legs. He states that they tried to convince her to come to the emergency department but she was scared to come. They state her swelling has worsened to involve the entire body, they strongly encouraged she come given these new findings that she is never had before. 10/14/19 18:16 Right EJ attempted, unsuccessful, vein blew. Dr. mishra at bedside, successfully achieved a right-sided femoral stick for blood. After unsuccessful left-sided attempt. I called and spoke with Dr. Argueta who will come and evaluate the patient in the emergency department, we have requested admission. 10/14/19 18:44 Dr. Argueta to bedside, he evaluated the patient and spoke with me and agreed with plan of admission due to obvious fluid overload. Patient is stable for admission at this time. She has hypertensive urgency as well. He will admit to [facility]. (REBECCA THAO) - Vital Signs Vital signs: Temp Pulse Resp BP Pulse Ox 97.7 F 22 H 185/103 H 100 10/14/19 17:02 10/14/19 18:01 10/14/19 18:01 10/14/19 18:01 - Laboratory Laboratory results interpreted by me: 10/14/19 10/14/19 10/14/19 14:10 15:15 15:15 Hgb Hct MCH RDW PT 15.8 H APTT 20.9 L Sodium 135.2 L Carbon Dioxide 21 L Glucose 122 H Calcium 8.3 L Total Bilirubin 3.4 H Direct Bilirubin 2.2 H Alkaline Phosphatase 186 H NT-Pro-B Natriuret Pep Albumin 2.9 L Urine Protein 30 H Urine Urobilinogen 4.0 H 10/14/19 10/14/19 15:15 17:23 Hgb 10.2 L Hct 31.0 L MCH 26.3 L RDW 21.8 H PT APTT Sodium Carbon Dioxide Glucose Calcium Total Bilirubin Direct Bilirubin Alkaline Phosphatase NT-Pro-B Natriuret Pep 6360 H Albumin Urine Protein Urine Urobilinogen Procedures - Additional Procedures ABG Time performed: 17:10 Additional Procedures: Other - right femoral blood tap for CBC CMP and other labs; attempt at left femoral site unsuccessful;pt tolerated proceedure well <LOUIS MISHRA JR - Last Filed: 10/14/19 17:58> Discharge <LOUIS MISHRA JR - Last Filed: 10/14/19 17:58> - Discharge Admitting Provider: Dr. Argueta Unit Admitted: Medical Floor <REBECCA THAO - Last Filed: 10/14/19 18:46> - Discharge Clinical Impression: Hypertensive urgency Fluid overload Qualifiers: Hypervolemia type: unspecified Qualified Code(s): E87.70 - Fluid overload, unspecified CHF (congestive heart failure) Qualifiers: Heart failure type: unspecified Heart failure chronicity: acute on chronic Qualified Code(s): I50.9 - Heart failure, unspecified Condition: Stable Disposition: ADMITTED INPATIENT
[2019-10-14 14:39] LABS: APPEARANCE,URINE CLEAR; BILIRUBIN,URINE NEGATIVE (NEGATIVE); COLOR,URINE YELLOW; GLUCOSE, URINE NEGATIVE (NEGATIVE); KETONES,URINE NEGATIVE (NEGATIVE); LEUKOCYTE ESTERASE,URINE NEGATIVE (NEGATIVE); NITRITE,URINE NEGATIVE (NEGATIVE); PROTEIN,URINE 30 mg/dL (NEGATIVE); URINE SPECIFIC GRAVITY 1.005
[2019-10-14 14:56] LABS: A TYPE INFLUENZA AG NEGATIVE (NEGATIVE); B INFLUENZA AG NEGATIVE (NEGATIVE)
--- NOTE | 2019-10-14 15:05 | RADIOLOGY REPORT (SQ) ---
EXAM DESCRIPTION: CHEST SINGLE VIEW IMAGES COMPLETED DATE/TIME: 10/14/2019 2:50 pm REASON FOR STUDY: sob COMPARISON: AP and lateral views of the chest from 08/24/2019. EXAM PARAMETERS: NUMBER OF VIEWS: One view. TECHNIQUE: An AP view of the chest was obtained. RADIATION DOSE: NA LIMITATIONS: None. FINDINGS: LUNGS AND PLEURA: Low inspiratory lung volumes without a superimposed consolidation, pleur al effusion or pneumothorax. MEDIASTINUM AND HILAR STRUCTURES: No mediastinal or hilar contour abnormality. HEART AND VASCULAR STRUCTURES: The cardiac silhouette is enlarged. BONES: No acute findings. HARDWARE: Implantable cardiac monitoring device. OTHER: No other finding. IMPRESSION: Low inspiratory lung volumes and cardiomegaly without a superimposed acute cardiopulmona ry process. TECHNICAL DOCUMENTATION: JOB ID: [id number] 2010 [employer]- All Rights Reserved Reading location - IP/workstation name: [email or web address]
[2019-10-14 15:45] LABS: INTERNATIONAL RATION (INR) 1.25; PROTHROMBIN TIME 15.8 SEC (11.4-15.4)
[2019-10-14 15:46] LABS: PARTIAL THROMBOPLASTIN TIME 20.9 SEC (23.5-35.8)
[2019-10-14 16:04] LABS: ALBUMIN 2.9 g/dL (3.5-5.0); ALKALINE PHOSPHATASE 186 U/L (38-126); ANION GAP 9 (5-19); ASPARTATE AMINO TRANSFERASE 29 U/L (14-36); BILIRUBIN,DIRECT 2.2 mg/dL (0.0-0.4); BILIRUBIN,TOTAL 3.4 mg/dL (0.2-1.3); BLOOD UREA NITROGEN 14 mg/dL (7-20); CALCIUM 8.3 mg/dL (8.4-10.2); CARBON DIOXIDE 21 mmol/L (22-30); CHLORIDE 105 mmol/L (98-107); GLUCOSE 122 mg/dL (75-110); POTASSIUM 3.8 mmol/L (3.6-5.0); TOTAL PROTEIN 7.9 g/dL (6.3-8.2)
[2019-10-14 16:16] LABS: TROPONIN I 0.02 ng/mL
[2019-10-14 17:36] LABS: ABSOLUTE LYMPHOCYTES (AUTO) 0.8 10^3/uL (0.5-4.7); ABSOLUTE MONOCYTES (AUTO) 0.4 10^3/uL (0.1-1.4); ABSOLUTE NEUT (AUTO) 3.9 10^3/uL (1.7-8.2); BASOPHILS % (AUTO) 0.8 % (0-2); EOSINOPHILS % (AUTO) 0.5 % (0-6); HEMOGLOBIN 10.2 g/dL (12.0-15.5); LYMPHOCYTES % (AUTO) 15.8 % (13-45); MEAN CORPUSCULAR HEMOGLOBIN 26.3 pg (27.0-33.4); MEAN CORPUSCULAR VOLUME 80 fl (80-97); MONOCYTES % (AUTO) 7.3 % (3-13); PLATELET COUNT 316 10^3/uL (150-450); RED BLOOD COUNT 3.89 10^6/uL (3.72-5.28); RED CELL DISTRIBUTION WIDTH 21.8 % (11.5-14.0); SEGMENTED NEUTROPHILS % (AUTO) 75.6 % (42-78); TOTAL CELLS COUNTED % (AUTO) 100 %; WHITE BLOOD COUNT 5.1 10^3/uL (4.0-10.5)
[2019-10-14] MEDS ORDERED: ONDANSETRON 4 MG TAB.RAPDIS PO PRN (18:44)
[2019-10-14] MEDS ORDERED: ACETAMINOPHEN 325 MG TABLET PO PRN (18:44)
[2019-10-14] MEDS ORDERED: ONDANSETRON HCL INJ/PF 4 MG/2 ML SDV IV PRN (18:44)
[2019-10-14] MEDS ORDERED: CLOPIDOGREL BISULFATE 75 MG TABLET PO ONE (18:52)
[2019-10-14] MEDS ORDERED: ATORVASTATIN CALCIUM 40 MG TABLET PO ONE (18:53)
[2019-10-14] MEDS ORDERED: ASPIRIN 81 MG TABLET, CHEWABLE PO ONE (18:53)
--- NOTE | 2019-10-14 19:03 | PDOC H&P ---
History of Present Illness History of Present Illness: PHILLIP DORANTES is a 49 year old female Past Medical History Cardiac Medical History: Reports: Congestive Heart Failure, Coronary Artery Disease, Myocardial Infarction, Hyperlipidema, Hypertension, Heart Murmur Pulmonary Medical History: Denies: Asthma, Chronic Obstructive Pulmonary Disease (COPD) Neurological Medical History: Denies: Seizures Endocrine Medical History: Reports: Diabetes Mellitus Type 1, Diabetes Mellitus Type 2 Denies: Hyperthyroidism, Hypothyroidism GI Medical History: Denies: Cirrhosis, Hepatitis Musculoskeltal Medical History: Denies: Arthritis, Gout Skin Medical History: Denies: Eczema, Psoriasis Psychiatric Medical History: Denies: Depression Hematology: Denies: Anemia, Bleeding Tendencies Past Surgical History Past Surgical History: Reports: Cardiac Catheterization, Cholecystectomy, Coronary Stent Social History Smoking Status: Unknown if Ever Smoked Electronic Cigarette use?: No Frequency of Alcohol Use: None Hx Recreational Drug Use: No Drugs: None Hx Prescription Drug Abuse: No - Advance Directive Resuscitation Status: Full Code Surrogate healthcare decision maker:: son Family History Family History: DM, Other Parental Family History Reviewed: Yes Children Family History Reviewed: Yes Sibling(s) Family History Reviewed.: Yes Medication/Allergy Home Medications: Aspirin [Aspirin 81 mg Chewable Tablet] 81 mg PO DAILY 30 Days #30 tab.chew 08/10/19 Atorvastatin Calcium [Lipitor 40 mg Tablet] 40 mg PO QHS 30 Days #30 tablet 08/10/19 Clopidogrel Bisulfate [Plavix 75 mg Tablet] 75 mg PO DAILY 30 Days #30 tablet 08/10/19 Insulin Glargine,Hum.rec.anlog [Lantus Insulin 100 Unit/1 ml 10 ml] 5 unit SUBCUT QHS 30 Days #1 unit 08/10/19 Lisinopril [Zestril] 40 mg PO DAILY 30 Days #30 tablet 08/10/19 Metoprolol Succinate [Toprol Xl 50 mg Tab.sr] 100 mg PO Q12 30 Days #60 tab.sr.24h 08/10/19 Metformin HCl [Glucophage] 1,000 mg PO BIDBS 08/25/19 Acetaminophen [Tylenol 325 mg Tablet] 650 mg PO Q4HP PRN tablet 08/26/19 Docusate Sodium [Colace 100 mg Capsule] 100 mg PO DAILY capsule 08/26/19 Furosemide [Lasix] 20 mg PO DAILY #30 tablet 08/26/19 Gabapentin [Neurontin 100 mg Capsule] 100 mg PO Q8 #90 capsule 08/26/19 Allergies/Adverse Reactions: No Known Allergies Allergy (Verified 08/08/19 14:00) Review of Systems All systems: reviewed and no additional remarkable complaints except as stated - See HPI, otherwise negative Physical Exam Vital Signs: Temp Pulse Resp BP Pulse Ox 97.7 F 22 H 185/103 H 100 10/14/19 17:02 10/14/19 18:01 10/14/19 18:01 10/14/19 18:01 Intake & Output 10/13/19 10/14/19 10/15/19 06:59 06:59 06:59 Output Total 6100 Balance -6100 General appearance: PRESENT: no acute distress Head exam: PRESENT: atraumatic, normocephalic Eye exam: PRESENT: conjunctiva pink Mouth exam: PRESENT: moist Respiratory exam: PRESENT: clear to auscultation ac. ABSENT: rales, rhonchi, wheezes Cardiovascular exam: PRESENT: tachycardia. ABSENT: diastolic murmur, rubs, systolic murmur GI/Abdominal exam: PRESENT: normal bowel sounds, soft, other - edema. ABSENT: distended, guarding, mass, organolmegaly, rebound, tenderness Extremities exam: PRESENT: pedal edema, +2 edema Neurological exam: PRESENT: alert, awake, oriented to person, oriented to place, oriented to time, oriented to situation, motor sensory deficit - chronic right sided deficits, unchanged from baseline per pt and family Psychiatric exam: PRESENT: appropriate affect, normal mood Skin exam: PRESENT: dry, intact, warm Results Laboratory Results: 10/14/19 17:23 10/14/19 15:15 10/14/19 10/14/19 10/14/19 14:10 15:15 15:15 WBC Cancelled RBC Cancelled Hgb Cancelled Hct Cancelled MCV Cancelled MCH Cancelled MCHC Cancelled RDW Cancelled Plt Count Cancelled Seg Neutrophils % Cancelled Sodium 135.2 L Potassium 3.8 Chloride 105 Carbon Dioxide 21 L Anion Gap 9 BUN 14 Creatinine 0.60 Est GFR ( Amer) > 60 Glucose 122 H Calcium 8.3 L Total Bilirubin 3.4 H AST 29 Alkaline Phosphatase 186 H Total Protein 7.9 Albumin 2.9 L Urine Color YELLOW Urine Appearance CLEAR Urine pH 6.0 Ur Specific [place] 1.005 Urine Protein 30 H Urine Glucose (UA) NEGATIVE Urine Ketones NEGATIVE Urine Blood NEGATIVE Urine Nitrite NEGATIVE Ur Leukocyte Esterase NEGATIVE Urine WBC (Auto) 1 Urine RBC (Auto) 1 10/14/19 17:23 WBC 5.1 RBC 3.89 Hgb 10.2 L Hct 31.0 L MCV 80 MCH 26.3 L MCHC 33.0 RDW 21.8 H Plt Count 316 Seg Neutrophils % 75.6 Sodium Potassium Chloride Carbon Dioxide Anion Gap BUN Creatinine Est GFR ( Amer) Glucose Calcium Total Bilirubin AST Alkaline Phosphatase Total Protein Albumin Urine Color Urine Appearance Urine pH Ur Specific [place] Urine Protein Urine Glucose (UA) Urine Ketones Urine Blood Urine Nitrite Ur Leukocyte Esterase Urine WBC (Auto) Urine RBC (Auto) 10/14/19 15:15 Troponin I 0.020 NT-Pro-B Natriuret Pep 6360 H Impressions: Chest X-Ray 10/14/19 13:35 IMPRESSION: Low inspiratory lung volumes and cardiomegaly without a superimposed acute cardiopulmonary process. Assessment and Plan - Diagnosis (1) Acute combined systolic (congestive) and diastolic (congestive) heart failure Is this a current diagnosis for this admission?: Yes Plan: This occurred due to being out of her medications for approximately 1 month per discussion with son; they did not attempt to get refills from any clinic or ER Patient has follow-up this coming with PCP which is a new patient visit Diuresis with IV Lasix, plan to restart home Lasix at discharge in the next 24 to 48 hours Home cardiac medications restarted Needs follow-up with cardiology outpatient Reviewed recent echocardiogram which showed EF 30% with combined CHF (2) Hypertensive urgency Is this a current diagnosis for this admission?: Yes Plan: Due to medication noncompliance as above Restart home medications Has resulted in some CHF exacerbation as well which will likely improve his blood pressure is controlled (3) Coronary artery disease Is this a current diagnosis for this admission?: Yes Plan: Reported history of [place] Continue aspirin/Plavix/statin (4) Diabetes mellitus type 2 in obese Is this a current diagnosis for this admission?: Yes Plan: Accu-Cheks, sliding scale insulin, hold orals (5) History of CVA (cerebrovascular accident) Is this a current diagnosis for this admission?: Yes Plan: Restart home medications as above Chronic right-sided deficits which are at baseline per family and patient (6) Noncompliance with medication regimen Is this a current diagnosis for this admission?: Yes Plan: Ran out of medications and did not get refills, sons are caretakers and they did not attempt to get refills per my discussion with them May need to explore long-term nursing facility but patient is reluctant to thi nk about this and may not be able to afford it (7) Peripheral edema Is this a current diagnosis for this admission?: Yes - Time Time Spent with patient: 35 or more minutes Medications reviewed and adjusted accordingly: Yes Anticipated discharge: Home Within: within 48 hours
--- NOTE | 2019-10-14 19:04 | ADVANCED CARE ---
- Diagnosis (1) Acute combined systolic (congestive) and diastolic (congestive) heart failure Diagnosis Current: Yes (2) Hypertensive urgency Diagnosis Current: Yes (3) Coronary artery disease Diagnosis Current: Yes (4) Diabetes mellitus type 2 in obese Diagnosis Current: Yes (5) History of CVA (cerebrovascular accident) Diagnosis Current: Yes (6) Noncompliance with medication regimen Diagnosis Current: Yes (7) Peripheral edema Diagnosis Current: Yes Attendance: Patient and son Resuscitation Status: Full Code Discussion: All aspects of code discussed including chest compressions/cardioversion/i ntubation and patient and her son agreed that she would like to be full code. Her medical power of privacy attorney is noted to be [place]. This is the patient's preference and there is no legal document but specifically did not see him as the power of privacy attorney. Time Spent: 17 minutes
[2019-10-14] MEDS: LISINOPRIL 10 MG TABLET PO SCH (19:18)
[2019-10-14] MEDS: METOPROLOL SUCCINATE 50 MG TAB.SR.24H PO SCH (19:20)
[2019-10-14] MEDS ORDERED: MORPHINE SULFATE 10 MG/ML INJ IV PRN (19:34)
[2019-10-14] MEDS: INSULIN LISPRO 100 UNIT/ML 3 ML VIAL SUBCUT SCH (23:42)
[2019-10-14] MEDS: FUROSEMIDE INJ/PF 40 MG/4 ML SDV IV SCH (23:52)
[2019-10-14] MEDS: GABAPENTIN 100 MG CAPSULE PO SCH (23:52)
[2019-10-15] MEDS: GABAPENTIN 100 MG CAPSULE PO SCH ×2 (05:31→15:18)
[2019-10-15 08:16] LABS: ABSOLUTE EOSINOPHILS # (AUTO) 0.1 10^3/uL (0.0-0.6); ABSOLUTE LYMPHOCYTES (AUTO) 0.8 10^3/uL (0.5-4.7); ABSOLUTE MONOCYTES (AUTO) 0.3 10^3/uL (0.1-1.4); ABSOLUTE NEUT (AUTO) 3.9 10^3/uL (1.7-8.2); BASOPHILS % (AUTO) 0.3 % (0-2); EOSINOPHILS % (AUTO) 1.1 % (0-6); HEMATOCRIT 32.2 % (36.0-47.0); HEMOGLOBIN 10.6 g/dL (12.0-15.5); LYMPHOCYTES % (AUTO) 16.4 % (13-45); MEAN CORPUSCULAR HGB CONC 32.9 g/dL (32.0-36.0); MEAN CORPUSCULAR VOLUME 79 fl (80-97); MONOCYTES % (AUTO) 6.4 % (3-13); PLATELET COUNT 326 10^3/uL (150-450); RED BLOOD COUNT 4.08 10^6/uL (3.72-5.28); RED CELL DISTRIBUTION WIDTH 21.6 % (11.5-14.0); SEGMENTED NEUTROPHILS % (AUTO) 75.8 % (42-78); TOTAL CELLS COUNTED % (AUTO) 100 %; WHITE BLOOD COUNT 5.1 10^3/uL (4.0-10.5)
[2019-10-15] MEDS: INSULIN LISPRO 100 UNIT/ML 3 ML VIAL SUBCUT SCH ×3 (08:24→17:22)
[2019-10-15 08:33] LABS: ANION GAP 10 (5-19); BLOOD UREA NITROGEN 13 mg/dL (7-20); CALCIUM 8.4 mg/dL (8.4-10.2); CARBON DIOXIDE 25 mmol/L (22-30); CHLORIDE 102 mmol/L (98-107); GLUCOSE 121 mg/dL (75-110); PHOSPHORUS 3.6 mg/dL (2.5-4.5); POTASSIUM 3.1 mmol/L (3.6-5.0)
[2019-10-15] MEDS ORDERED: MAGNESIUM SULFATE INJ 8 MEQ/2 ML IV ONE (09:19)
[2019-10-15] MEDS ORDERED: LISINOPRIL 10 MG TABLET PO SCH (10:00)
[2019-10-15] MEDS ORDERED: METOPROLOL SUCCINATE 50 MG TAB.SR.24H PO SCH (10:00)
[2019-10-15] MEDS ORDERED: MAGNESIUM SULFATE/D5W 1 GM/100 ML RTUPB IV ONE (10:00)
[2019-10-15] MEDS ORDERED: CLOPIDOGREL BISULFATE 75 MG TABLET PO SCH (10:00)
[2019-10-15] MEDS ORDERED: ASPIRIN 81 MG TABLET, CHEWABLE PO SCH (10:00)
[2019-10-15] MEDS ORDERED: POTASSIUM CHLORIDE 20 MEQ PACKET PO SCH (10:00)
[2019-10-15] MEDS ORDERED: ENOXAPARIN SODIUM INJ 40 MG/0.4 ML DISP.SYRIN SUBCUT SCH (10:00)
[2019-10-15] MEDS: LISINOPRIL 10 MG TABLET PO SCH (11:05)
[2019-10-15] MEDS: METOPROLOL SUCCINATE 50 MG TAB.SR.24H PO SCH (11:05)
[2019-10-15] MEDS: FUROSEMIDE INJ/PF 40 MG/4 ML SDV IV SCH (11:06)
[2019-10-15] MEDS ORDERED: SPIRONOLACTONE 25 MG TABLET PO SCH (14:15)
--- NOTE | 2019-10-15 14:17 | PDOC DISCHARGE SUMMARY ---
Impression - Admit/DC Date/PCP Admission Date/Primary Care Provider: 10/14/19 18:52 Discharge Date: 10/15/19 - Discharge Diagnosis (1) Acute combined systolic (congestive) and diastolic (congestive) heart failure Is this a current diagnosis for this admission?: Yes (2) Hypertensive urgency Is this a current diagnosis for this admission?: Yes (3) Coronary artery disease Is this a current diagnosis for this admission?: Yes (4) Diabetes mellitus type 2 in obese Is this a current diagnosis for this admission?: Yes (5) History of CVA (cerebrovascular accident) Is this a current diagnosis for this admission?: Yes (6) Noncompliance with medication regimen Is this a current diagnosis for this admission?: Yes (7) Peripheral edema Is this a current diagnosis for this admission?: Yes - Additional Information Resuscitation Status: Full Code Discharge Diet: Cardiac, Diabetic Discharge Activity: Activity As Tolerated Prescriptions: Spironolactone [Aldactone 25 mg Tablet] 12.5 mg PO DAILY #15 tablet Aspirin [Aspirin 81 mg Chewable Tablet] 81 mg PO DAILY 30 Days #30 tab.chew Metformin HCl [Glucophage] 1,000 mg PO BIDBS #60 tablet Insulin Glargine,Hum.rec.anlog [Lantus Insulin 100 Unit/1 ml 10 ml] 5 unit SUBCUT QHS 30 Days #1 unit Furosemide [Lasix] 20 mg PO BID #60 tablet Atorvastatin Calcium [Lipitor 40 mg Tablet] 40 mg PO QHS 30 Days #30 tablet Clopidogrel Bisulfate [Plavix 75 mg Tablet] 75 mg PO DAILY 30 Days #30 tablet Metoprolol Succinate [Toprol Xl 50 mg Tab.sr] 100 mg PO Q12 30 Days #60 tab.sr.24h Lisinopril [Zestril] 40 mg PO DAILY 30 Days #30 tablet Home Medications: Gabapentin [Neurontin 100 mg Capsule] 100 mg PO Q8 #90 capsule 08/26/19 Aspirin [Aspirin 81 mg Chewable Tablet] 81 mg PO DAILY 30 Days #30 tab.chew 10/15/19 Atorvastatin Calcium [Lipitor 40 mg Tablet] 40 mg PO QHS 30 Days #30 tablet 10/15/19 Clopidogrel Bisulfate [Plavix 75 mg Tablet] 75 mg PO DAILY 30 Days #30 tablet 10/15/19 Furosemide [Lasix] 20 mg PO BID #60 tablet 10/15/19 Insulin Glargine,Hum.rec.anlog [Lantus Insulin 100 Unit/1 ml 10 ml] 5 unit SUBCUT QHS 30 Days #1 unit 10/15/19 Lisinopril [Zestril] 40 mg PO DAILY 30 Days #30 tablet 10/15/19 Metformin HCl [Glucophage] 1,000 mg PO BIDBS #60 tablet 10/15/19 Metoprolol Succinate [Toprol Xl 50 mg Tab.sr] 100 mg PO Q12 30 Days #60 tab.sr.24h 10/15/19 Spironolactone [Aldactone 25 mg Tablet] 12.5 mg PO DAILY #15 tablet 10/15/19 History of Present Illiness History of Present Illness: PHILLIP DORANTES is a 49 year old female Hospital Course Hospital Course: Patient admitted for acute combined CHF exacerbation due to not taking her medications for over 1 month. I discussed with the patient and her family at length that they must not allow her to run out of her medications in the future and they can have these refilled at any urgent care or ER if they are unable to reach the patient's PCP. She must follow-up with her PCP for her establishment of care visit this . I would also recommend that she follow-up with a reduction plant supervisor of her choosing. I have refilled all of her home medications and increase her Lasix dose to 20 mg twice daily instead of daily. She looks significantly improved from admission and states that she feels great, also noting she very much wants to go home today. (1) Acute combined systolic (congestive) and diastolic (congestive) heart failure - RESOLVED Is this a current diagnosis for this admission?: Yes Plan: This occurred due to being out of her medications for approximately 1 month per discussion with son; they did not attempt to get refills from any clinic or ER Patient has follow-up this coming with PCP which is a new patient visit Diuresis with IV Lasix, plan to restart home Lasix at discharge in the next 24 to 48 hours Home cardiac medications restarted Needs follow-up with cardiology outpatient Reviewed recent echocardiogram which showed EF 30% with combined CHF (2) Hypertensive urgency Is this a current diagnosis for this admission?: Yes Plan: Due to medication noncompliance as above Restart home medications Has resulted in some CHF exacerbation as well which will likely improve his blood pressure is controlled (3) Coronary artery disease Is this a current diagnosis for this admission?: Yes Plan: Reported history of [place] Continue aspirin/Plavix/statin (4) Diabetes mellitus type 2 in obese Is this a current diagnosis for this admission?: Yes Plan: Accu-Cheks, sliding scale insulin, hold orals (5) History of CVA (cerebrovascular accident) Is this a current diagnosis for this admission?: Yes Plan: Restart home medications as above Chronic right-sided deficits which are at baseline per family and patient (6) Noncompliance with medication regimen Is this a current diagnosis for this admission?: Yes Plan: Ran out of medications and did not get refills, sons are caretakers and they did not attempt to get refills per my discussion with them May need to explore long-term nursing facility but patient is reluctant to think about this and may not be able to afford it (7) Peripheral edema Physical Exam Vital Signs: Temp Pulse Resp BP Pulse Ox 97.9 F 90 14 148/98 H 100 10/15/19 12:00 10/15/19 12:00 10/15/19 12:00 10/15/19 12:00 10/15/19 12:00 Intake & Output 10/14/19 10/15/19 10/16/19 06:59 06:59 06:59 Intake Total 440 740 Output Total 00432 1000 Balance -44315 -260 Weight 98.1 kg Results Laboratory Results: WBC 5.1 10^3/uL (4.0-10.5) 10/15/19 07:57 RBC 4.08 10^6/uL (3.72-5.28) 10/15/19 07:57 Hgb 10.6 g/dL (12.0-15.5) L 10/15/19 07:57 Hct 32.2 % (36.0-47.0) L 10/15/19 07:57 MCV 79 fl (80-97) L 10/15/19 07:57 MCH 26.0 pg (27.0-33.4) L 10/15/19 07:57 MCHC 32.9 g/dL (32.0-36.0) 10/15/19 07:57 RDW 21.6 % (11.5-14.0) H 10/15/19 07:57 Plt Count 326 10^3/uL (150-450) 10/15/19 07:57 Lymph % (Auto) 16.4 % (13-45) 10/15/19 07:57 [place] % (Auto) 6.4 % (3-13) 10/15/19 07:57 Eos % (Auto) 1.1 % (0-6) 10/15/19 07:57 Baso % (Auto) 0.3 % (0-2) 10/15/19 07:57 Absolute Neuts (auto) 3.9 10^3/uL (1.7-8.2) 10/15/19 07:57 Absolute Lymphs (auto) 0.8 10^3/uL (0.5-4.7) 10/15/19 07:57 Absolute Monos (auto) 0.3 10^3/uL (0.1-1.4) 10/15/19 07:57 Absolute Eos (auto) 0.1 10^3/uL (0.0-0.6) 10/15/19 07:57 Absolute Basos (auto) 0.0 10^3/uL (0.0-0.2) 10/15/19 07:57 Seg Neutrophils % 75.8 % (42-78) 10/15/19 07:57 Platelet Estimate Cancelled 10/14/19 15:15 PT 15.8 SEC (11.4-15.4) H 10/14/19 15:15 INR 1.25 10/14/19 15:15 APTT 20.9 SEC (23.5-35.8) L 10/14/19 15:15 Sodium 136.7 mmol/L (137-145) L 10/15/19 07:57 Potassium 3.1 mmol/L (3.6-5.0) L 10/15/19 07:57 Chloride 102 mmol/L (98-107) 10/15/19 07:57 Carbon Dioxide 25 mmol/L (22-30) 10/15/19 07:57 Anion Gap 10 (5-19) 10/15/19 07:57 BUN 13 mg/dL (7-20) 10/15/19 07:57 Creatinine 0.57 mg/dL (0.52-1.25) 10/15/19 07:57 Est GFR ( Amer) > 60 (>60) 10/15/19 07:57 Est GFR (MDRD) Non-Af > 60 (>60) 10/15/19 07:57 Glucose 121 mg/dL (75-110) H 10/15/19 07:57 POC Glucose 160 mg/dL (70-110) H 10/15/19 11:24 Hemoglobin A1c % 7.1 % (4.7-6.0) H 10/15/19 07:57 Calcium 8.4 mg/dL (8.4-10.2) 10/15/19 07:57 Phosphorus 3.6 mg/dL (2.5-4.5) 10/15/19 07:57 Magnesium 1.5 mg/dL (1.6-2.3) L 10/15/19 07:57 Total Bilirubin 3.4 mg/dL (0.2-1.3) H 10/14/19 15:15 Direct Bilirubin 2.2 mg/dL (0.0-0.4) H 10/14/19 15:15 Neonat Total Bilirubin Not Reportable 10/14/19 15:15 Neonat Direct Bilirubin Not Reportable 10/14/19 15:15 Neonat Indirect Bili Not Reportable 10/14/19 15:15 AST 29 U/L (14-36) 10/14/19 15:15 ALT 14 U/L (<35) 10/14/19 15:15 Alkaline Phosphatase 186 U/L (38-126) H 10/14/19 15:15 Troponin I 0.020 ng/mL 10/14/19 15:15 NT-Pro-B Natriuret Pep 6360 pg/mL (<125) H 10/14/19 15:15 Total Protein 7.9 g/dL (6.3-8.2) 10/14/19 15:15 Albumin 2.9 g/dL (3.5-5.0) L 10/14/19 15:15 Urine Color YELLOW 10/14/19 14:10 Urine Appearance CLEAR 10/14/19 14:10 Urine pH 6.0 (5.0-9.0) 10/14/19 14:10 Ur Specific [place] 1.005 10/14/19 14:10 Urine Protein 30 mg/dL (NEGATIVE) H 10/14/19 14:10 Urine Glucose (UA) NEGATIVE mg/dL (NEGATIVE) 10/14/19 14:10 Urine Ketones NEGATIVE mg/dL (NEGATIVE) 10/14/19 14:10 Urine Blood NEGATIVE (NEGATIVE) 10/14/19 14:10 Urine Nitrite NEGATIVE (NEGATIVE) 10/14/19 14:10 Urine Bilirubin NEGATIVE (NEGATIVE) 10/14/19 14:10 Urine Urobilinogen 4.0 mg/dL (<2.0) H 10/14/19 14:10 Ur Leukocyte Esterase NEGATIVE (NEGATIVE) 10/14/19 14:10 Urine WBC (Auto) 1 /HPF 10/14/19 14:10 Urine RBC (Auto) 1 /HPF 10/14/19 14:10 U Hyaline Cast (Auto) 3 /LPF 10/14/19 14:10 Squamous Epi Cells Auto <1 /HPF 10/14/19 14:10 Urine Mucus (Auto) RARE /LPF 10/14/19 14:10 Urine Ascorbic Acid NEGATIVE (NEGATIVE) 10/14/19 14:10 Influenza A (Rapid) NEGATIVE (NEGATIVE) 10/14/19 14:10 Influenza B (Rapid) NEGATIVE (NEGATIVE) 10/14/19 14:10 Slides for Path Review Cancelled 10/14/19 15:15 10/14/19 15:15 Troponin I 0.020 NT-Pro-B Natriuret Pep 6360 H Impressions: Chest X-Ray 10/14/19 13:35 IMPRESSION: Low inspiratory lung volumes and cardiomegaly without a superimposed acute cardiopulmonary process. Plan Time Spent: Greater than 30 Minutes Stroke Is this a Stroke Patient?: Yes Stroke Pt being discharged on Anti-thrombolytic therapy?: Yes Acute Heart Failure - Is this a Heart Failure Patient?: Yes Documentation of LVEF assessment?: Yes LVEF < 40%?: Yes-if yes answer questions a through e a) Discharged on ACEI?: Yes b) Discharges on ARB?: N/A-Discharged on ARNI c) Discharged on ARNI?: No-Document Contraindications Reason(s) not discharged on ARNI: ACEI use within the prior 36 hours d) Discharged on evidence-based Beta tri(carvedilol, sustained release metoprolol succinate, or bisoprolol)?: Yes e) For LVEF <35%, discharged on Aldosterone antagonist?: Yes 3. Anticoagulant therapy for permanect/persistent/paraoxysmal Afib or Aflutter: N/A Follow-up Appointment scheduled within 7 days?: Yes
[2019-10-15 16:58] VITALS: BP 128/70
[2019-10-15] MEDS ORDERED: ATORVASTATIN CALCIUM 40 MG TABLET PO SCH (22:00)
[2019-10-15] MEDS ORDERED: INSULIN GLARGINE,HUM.REC.ANLOG 1,000 UNIT/10 ML VIAL SUBCUT SCH (22:00)
== END 2019-10-15 20:27 | disposition home health service (06) ==
LOC: ER 12:51 → EH 18:52 → INTOOBSV 18:52 → 4N 21:54
PROVIDERS: ADMIT Internal Medicine; ATTEND Internal Medicine
DX: I16.0 Hypertensive urgency (principal); I11.0 Hypertensive heart disease with heart failure; I50.43 Acute on chronic combined systolic (congestive) and diastolic (congestive) heart failure; Z91.14 Patient's other noncompliance with medication regimen; E11.9 Type 2 diabetes mellitus without complications; E66.9 Obesity, unspecified; R60.0 Localized edema; I69.398 Other sequelae of cerebral infarction; R44.8 Other symptoms and signs involving general sensations and perceptions; I25.2 Old myocardial infarction; I25.10 Atherosclerotic heart disease of native coronary artery without angina pectoris; Z95.5 Presence of coronary angioplasty implant and graft
CPT/HCPCS: 99285; 51702; 96374; 36415; 82962 ×2; 83735; 84100; 85025 ×2; 85610; 85730; 80053; 81001; 84484; 83036; 87804; 83880; 71045; 97161; J3490 ×12; J1940 ×3; J1815; J2270; J1650; J3475

== ENCOUNTER 2019-12-09 07:03 | Emergency (ER) | payer MEDICAID ==
--- NOTE | 2019-12-09 07:22 | ER Document Report ---
ED Seizure - General Chief Complaint: Probable Seizure Stated Complaint: POSSIBLE SEIZURE Time Seen by Provider: 12/09/19 07:14 Notes: 49-year-old woman brought to the emergency department from home apparently called out to EMS for possible seizure. They arrived and found the patient to be in a post ictal state. Upon arrival to the emergency department patient is noted to be alert responsive and answers questions appropriately. She has a past medical history of left CVA with right-sided chronic deficits, CHF (systolic/diastolic) diabetes mellitus type 1, tachycardia, hyperlipidemia, CAD, RI in the past, and chronic diffuse edema. Patient has a history of poor compliance with medications and noted that the medication bottles that she has now were filled 10/17/2019. Patient does not have a antiseizure medications noted in her medications that were brought to the emergency department. - Related Data Allergies/Adverse Reactions: No Known Allergies Allergy (Verified 08/08/19 14:00) Past Medical History - Social History Family History: DM, Other - Past Medical History Cardiac Medical History: Reports: Hx Congestive Heart Failure, Hx Coronary Artery Disease, Hx Heart Attack, Hx Hypercholesterolemia, Hx Hypertension, Hx Heart Murmur Pulmonary Medical History: Denies: Hx Asthma, Hx COPD Neurological Medical History: Denies: Hx Seizures Endocrine Medical History: Reports: Hx Diabetes Mellitus Type 1, Hx Diabetes Mellitus Type 2. Denies: Hx Hyperthyroidism, Hx Hypothyroidism Renal/ Medical History: Denies: Hx Peritoneal Dialysis GI Medical History: Denies: Hx Cirrhosis, Hx Hepatitis Musculoskeletal Medical History: Denies Hx Arthritis, Denies Hx Gout Skin Medical History: Denies Hx Eczema, Denies Hx Psoriasis Psychiatric Medical History: Denies: Hx Depression Infectious Medical History: Denies: Hx Hepatitis Past Surgical History: Reports: Hx Cardiac Catheterization, Hx Cholecystectomy, Hx Coronary Stent - Immunizations Hx Diphtheria, Pertussis, Tetanus Vaccination: Yes Review of Systems - Review of Systems Notes: Constitutional: Negative for fever. HENT: Negative for sore throat. Eyes: Negative for visual changes. Cardiovascular: Negative for chest pain. Respiratory: Negative for shortness of breath. Gastrointestinal: Negative for abdominal pain, vomiting or diarrhea. Genitourinary: Negative for dysuria. Musculoskeletal: Negative for back pain. Skin: Negative for rash. Neurological: Negative for headaches, weakness or numbness. 10 point ROS negative except as marked above and in HPI. Physical Exam - Vital signs Vitals: Temp 97.9 F 06/12/20 07:03 - Notes Notes: PHYSICAL EXAMINATION: Physical Exam: General: Chronically ill bed ridden 49-year-old female no acute distress HEENT: NC/AT, pupils equal round and reactive to light, MM moist,nares clear, oropharynx clear, airway patent Neck: supple, no adenopathy, no masses. Good range of motion Lungs: clear, no wheezing, no rales no rhonchi CVS: Regular rate and rhythm no murmur gallop or rub Abdomen: Soft, active, nontender, no masses, no hepatosplenomegaly Ext: Diffuse edema, anasarca with edematous upper and lower extremities and pitting edema on the abdominal wall and chest wall. Neuro: Alert and responsive, right hand with contracture and arm in a partially flexed., cranial nerves intact, no focal findings Skin: Intact no open lesions, no rash Course - Re-evaluation Re-evalutation: 12/09/19 11:23 Patient has a slightly elevated troponin, a repeat troponin is being performed. If that number is normal, the patient can be discharged home with rate of chronic problems and a episode of possible shaking which may or may not have represented a seizure. 12/09/19 15:11 Patient has been stable in the emergency department, no further episodes of shaking episodes or abnormality troponins were trended and appear to be trending down. Patient does have a cardiomegaly and history of CHF. - Vital Signs Vital signs: Temp Pulse Resp BP Pulse Ox 97.9 F 25 H 133/94 H 100 12/09/19 07:03 12/09/19 13:02 12/09/19 13:02 12/09/19 13:02 - Laboratory Result Diagrams: 12/09/19 07:19 12/09/19 07:19 Laboratory results interpreted by me: 12/09/19 12/09/19 12/09/19 07:19 07:19 07:19 Hgb 10.1 L Hct 32.1 L MCH 26.0 L MCHC 31.6 L RDW 20.0 H Chloride 109 H Glucose 166 H Total Bilirubin 2.5 H Direct Bilirubin 1.6 H Alkaline Phosphatase 177 H NT-Pro-B Natriuret Pep 6620 H Albumin 3.1 L Urine Protein Urine Glucose (UA) Urine Blood Urine Bilirubin Urine Urobilinogen 12/09/19 10:27 Hgb Hct MCH MCHC RDW Chloride Glucose Total Bilirubin Direct Bilirubin Alkaline Phosphatase NT-Pro-B Natriuret Pep Albumin Urine Protein >=500 H Urine Glucose (UA) 50 H Urine Blood SMALL H Urine Bilirubin SMALL H Urine Urobilinogen 4.0 H I have reviewed laboratory data and used this information for the treatment decisions regarding the patient. - Diagnostic Test Radiology reviewed: Image reviewed, Reports reviewed Radiology results interpreted by me: 12/09/19 11:24 Chest x-ray: Cardiomegaly, no acute CHF. CT head, noncontrast: No acute intracranial hemorrhage mild cerebral atrophy with periventricular white matter changes. - EKG Interpretation by Me Rate: Tachycardia - EKG with sinus tachycardia, rate 117, low voltage throughout, poor R wave progression, borderline T wave abnormality in the lateral leads. Normal axis and no acute ST elevations. Discharge - Discharge Clinical Impression: Cerebrovascular disease, Chronic combined systolic and diastolic congestive heart failure, History of CVA (cerebrovascular accident), Elevated bilirubin, Elevated troponin, Peripheral edema, Diabetes mellitus type 2 in obese Condition: Good Disposition: HOME, SELF-CARE Instructions: Congestive Heart Failure ([facility]) Additional Instructions: You were seen in the emergency department today department today with multiple medical problems which are chronic. These continue to take your medications as they were prescribed, follow-up with a primary care doctor next week. Return to the emergency department if there are new changes or other concerns. HOME CARE INSTRUCTIONS & INFORMATION: Thank you for choosing us for your medical needs. We hope you're satisfied with the care you received. After you leave, you must properly care for your problem and, at the same time, observe its progress. Any condition can change. Some illnesses can change rapidly over hours or days. If your condition worsens, return to the Emergency Department or see your physician promptly. ABOUT YOUR X-RAYS AND EKG'S: If you had an EKG or X-rays taken, they have been read by the Emergency Physician. The X-rays and EKG's will also be read by a Radiologist or Vehicle Return Associate within 24 hours. If discrepancies are noted, you will be notified by telephone. Please be certain the ED has a correct telephone number & address where you can be reached. Also, realize that some fractures or abnormalities do not show up on initial X-rays. If your symptoms continue, see your physician. ABOUT YOUR LABORATORY TEST: If you had laboratory tests, the results have been reviewed by the Emergency Physician. Some test results (for example cultures) may not be available for several days. You will be contacted if any test result shows you need additional treatment. Please be certain the ED has a correct telephone number and address where you can be reached. ABOUT YOUR MEDICATIONS: You will receive instructions on how to take your medicine on the prescription label you receive. Additional information may be provided by the Pharmacy. If you have questions afterwards, call the ED for clarification or further instructions. Some prescribed medications may cause drowsiness. Do not perform tasks such as driving a car or operating machinery without consulting your Pharmacist. If you feel you need a refill of pain medication, your condition will need re-evaluation. Please do not call for a refill of any medication. ABOUT YOUR SIGNATURE: Signature of this document acknowledges to followin. Understanding that you received emergency treatment and that you may be released before al medical problems are known or treated. Please be certain the ED has a correct phone number & address where you can be reached. 2. Acknowledgement that you will arrange for follow-up care as recommended. 3. Authorization for the Emergency Physician to provide information to your follow-up Physician in order to maximize your care. AT ANY TIME, IF YOUR SYMPTOMS CHANGE SIGNIFICANTLY OR WORSEN OR YOU DEVELOP NEW SYMPTOMS, RETURN TO THE EMERGENCY DEPARTMENT IMMEDIATELY FOR RE-EVALUATION. OUR GOAL IS TO PROVIDE EXCELLENT MEDICAL CARE! WE HOPE THAT WE HAVE MET YOUR EXPECTATIONS DURING YOUR EMERGENCY DEPARTMENT VISIT AND THAT YOU FEEL YOU HAVE RECEIVED EXCELLENT CARE!
[2019-12-09 07:35] LABS: ABSOLUTE EOSINOPHILS # (AUTO) 0.2 10^3/uL (0.0-0.6); ABSOLUTE LYMPHOCYTES (AUTO) 0.8 10^3/uL (0.5-4.7); ABSOLUTE MONOCYTES (AUTO) 0.3 10^3/uL (0.1-1.4); ABSOLUTE NEUT (AUTO) 3.2 10^3/uL (1.7-8.2); EOSINOPHILS % (AUTO) 3.9 % (0-6); HEMATOCRIT 32.1 % (36.0-47.0); HEMOGLOBIN 10.1 g/dL (12.0-15.5); LYMPHOCYTES % (AUTO) 18.1 % (13-45); MEAN CORPUSCULAR HGB CONC 31.6 g/dL (32.0-36.0); MEAN CORPUSCULAR VOLUME 82 fl (80-97); MONOCYTES % (AUTO) 7.6 % (3-13); PLATELET COUNT 296 10^3/uL (150-450); RED BLOOD COUNT 3.89 10^6/uL (3.72-5.28); SEGMENTED NEUTROPHILS % (AUTO) 69.4 % (42-78); TOTAL CELLS COUNTED % (AUTO) 100 %; WHITE BLOOD COUNT 4.6 10^3/uL (4.0-10.5)
[2019-12-09 07:57] LABS: ALBUMIN 3.1 g/dL (3.5-5.0); ALKALINE PHOSPHATASE 177 U/L (38-126); ANION GAP 7 (5-19); ASPARTATE AMINO TRANSFERASE 29 U/L (14-36); BILIRUBIN,DIRECT 1.6 mg/dL (0.0-0.4); BILIRUBIN,TOTAL 2.5 mg/dL (0.2-1.3); BLOOD UREA NITROGEN 13 mg/dL (7-20); CALCIUM 8.4 mg/dL (8.4-10.2); CARBON DIOXIDE 24 mmol/L (22-30); CHLORIDE 109 mmol/L (98-107); GLUCOSE 166 mg/dL (75-110); POTASSIUM 3.9 mmol/L (3.6-5.0); TOTAL PROTEIN 8.2 g/dL (6.3-8.2)
[2019-12-09 07:58] LABS: ALCOHOL < 10 mg/dL (NONE DETECTED)
[2019-12-09 08:06] LABS: CREATINE KINASE MB 2.23 ng/mL (<4.55)
[2019-12-09 08:09] LABS: TROPONIN I 0.073 ng/mL
--- NOTE | 2019-12-09 08:25 | RADIOLOGY REPORT (SQ) ---
CT of the head: 12/09/2019 7:22 AM CDT HISTORY: 49-year-old patient with new onset of seizures. COMPARISON: None available TECHNIQUE: Multiple axial contiguous images were obtained through the head without intravenous contrast administered. This exam was performed according to our departmental dose-optimization program, which includes automated exposure control, adjustment of the mA and/or KV according to the patient's size and/or use of iterative reconstruction technique. FINDINGS: The ventricles and cerebral sulci demonstrate mild prominence, consistent with cerebral atrophy. There are mild periventricular hypodensities, suggestive of periventricular white matter changes. The cutler-white matter differentiation is within normal limits. Both orbits appear unremarkable. The mastoid air cells appear clear. The visualized paranasal sinuses appear clear. The calvarium is intact. No extra-axial fluid collection is seen. No midline shift or mass effect is apparent. There are no findings to suggest acute intracranial hemorrhage. There is subcutaneous soft tissue swelling seen over the left frontal bone region. IMPRESSION: 1. No acute intracranial hemorrhage is seen. 2. Mild cerebral atrophy and periventricular white matter changes are seen.
--- NOTE | 2019-12-09 08:27 | RADIOLOGY REPORT (SQ) ---
EXAM DESCRIPTION: CHEST SINGLE VIEW IMAGES COMPLETED DATE/TIME: 12/09/2019 7:55 am REASON FOR STUDY: chf COMPARISON: 10/14/2019. NUMBER OF VIEWS: One view. TECHNIQUE: Single frontal radiographic view of the chest acquired. LIMITATIONS: None. FINDINGS: LUNGS AND PLEURA: No opacities, masses or pneumothorax. No pleural effusion. MEDIASTINUM AND HILAR STRUCTURES: No masses. Contour normal. HEART AND VASCULAR STRUCTURES: Heart enlarged without failure. Normal vasculature. BONES: No acute findings. HARDWARE: Cardiac recorder. OTHER: No other significant finding. IMPRESSION: STABLE CARDIOMEGALY. NO ACUTE FINDINGS. TECHNICAL DOCUMENTATION: JOB ID: [id number] 2010 [employer]- All Rights Reserved Reading location - IP/workstation name: [email or web address]
[2019-12-09 10:51] LABS: APPEARANCE,URINE SLIGHTLY-CLOUDY; BILIRUBIN,URINE SMALL (NEGATIVE); CALCIUM OXALATE CRYSTALS,URINE FEW /HPF; COLOR,URINE AMBER; GLUCOSE, URINE 50 mg/dL (NEGATIVE); KETONES,URINE NEGATIVE (NEGATIVE); LEUKOCYTE ESTERASE,URINE NEGATIVE (NEGATIVE); NITRITE,URINE NEGATIVE (NEGATIVE); PROTEIN,URINE >=500 mg/dL (NEGATIVE); URINE SPECIFIC GRAVITY 1.026
[2019-12-09 11:16] LABS: URINE AMPHETAMINES SCREEN NEGATIVE; URINE BARBITURATES SCREEN NEGATIVE; URINE BENZODIAZEPINES SCREEN NEGATIVE; URINE COCAINE SCREEN NEGATIVE; URINE MARIJUANA (THC) SCREEN NEGATIVE; URINE METHADONE SCREEN NEGATIVE; URINE PHENCYCLIDINE SCREEN NEGATIVE
[2019-12-09] MEDS ORDERED: MAG HYDROX/AL HYDROX/SIMETH SUSP 30 ML UDCUP PO ONE (11:44)
[2019-12-09] MEDS ORDERED: LABETALOL HCL INJ 20 MG/4 ML DISP.SYRIN IV ONE (11:44)
[2019-12-09] MEDS ORDERED: METOCLOPRAMIDE HCL ORAL SOLN 10 MG/10 ML UDCUP PO ONE (11:44)
[2019-12-09] MEDS ORDERED: LIDOCAINE 2% VISCOUS SOLN 15 ML UDCUP PO ONE (11:44)
[2019-12-09 16:10] VITALS: BP 158/100
--- NOTE | 2019-12-10 09:45 | EKG REPORT ---
SEVERITY:- ABNORMAL ECG - SINUS TACHYCARDIA VENTRICULAR BIGEMINY LOW VOLTAGE THROUGHOUT CONSIDER ANTERIOR INFARCT BORDERLINE T ABNORMALITIES, LATERAL LEADS : Confirmed by: Celine Dorsey MD 10-Dec-2019 09:45:20
== END 2019-12-09 16:49 | disposition home or self-care (01) ==
LOC: ER 07:03
DX: I67.9 Cerebrovascular disease, unspecified (principal); I50.42 Chronic combined systolic (congestive) and diastolic (congestive) heart failure; E80.6 Other disorders of bilirubin metabolism; R79.89 Other specified abnormal findings of blood chemistry; E11.9 Type 2 diabetes mellitus without complications; E66.9 Obesity, unspecified; R60.0 Localized edema; R56.9 Unspecified convulsions; Z86.73 Personal history of transient ischemic attack (TIA), and cerebral infarction without residual deficits; I50.9 Heart failure, unspecified; R00.0 Tachycardia, unspecified; E78.5 Hyperlipidemia, unspecified; I25.10 Atherosclerotic heart disease of native coronary artery without angina pectoris; I25.2 Old myocardial infarction
CPT/HCPCS: 93005; 99285; 96374; 36415; 82553; 80307 ×2; 82550; 83735; 85025; 80053; 81001; 84484; 83880; 71045; 70450; 93010; J3490 ×4

== ENCOUNTER 2019-12-16 06:12 | Inpatient (IN) | payer MEDICAID ==
[2019-12-16] MEDS ORDERED: FUROSEMIDE INJ/PF 40 MG/4 ML SDV IV ONE (06:30)
[2019-12-16 07:07] LABS: ABSOLUTE BASOPHILS # (AUTO) 0.1 10^3/uL (0.0-0.2); ABSOLUTE EOSINOPHILS # (AUTO) 0.1 10^3/uL (0.0-0.6); ABSOLUTE MONOCYTES (AUTO) 0.4 10^3/uL (0.1-1.4); ABSOLUTE NEUT (AUTO) 3.9 10^3/uL (1.7-8.2); BASOPHILS % (AUTO) 1.1 % (0-2); EOSINOPHILS % (AUTO) 2.6 % (0-6); HEMATOCRIT 34.2 % (36.0-47.0); HEMOGLOBIN 10.4 g/dL (12.0-15.5); LYMPHOCYTES % (AUTO) 18.8 % (13-45); MEAN CORPUSCULAR HEMOGLOBIN 25.7 pg (27.0-33.4); MEAN CORPUSCULAR HGB CONC 30.6 g/dL (32.0-36.0); MEAN CORPUSCULAR VOLUME 84 fl (80-97); MONOCYTES % (AUTO) 6.4 % (3-13); PLATELET COUNT 326 10^3/uL (150-450); RED BLOOD COUNT 4.07 10^6/uL (3.72-5.28); RED CELL DISTRIBUTION WIDTH 21.1 % (11.5-14.0); SEGMENTED NEUTROPHILS % (AUTO) 71.1 % (42-78); TOTAL CELLS COUNTED % (AUTO) 100 %; WHITE BLOOD COUNT 5.5 10^3/uL (4.0-10.5)
[2019-12-16 07:09] LABS: ARTERIAL BLOOD BASE EXCESS -0.4 mmol/L; ARTERIAL BLOOD FIO2 35%; ARTERIAL BLOOD H2CO3 1.42 mmol/L (1.05-1.35); ARTERIAL BLOOD HCO3 25.5 mmol/L (20-24); ARTERIAL BLOOD O2 SATURATION 32.3 % (94-98); ARTERIAL BLOOD PCO2 47.3 mmHg (35-45); ARTERIAL BLOOD PH 7.35 (7.35-7.45)
[2019-12-16 07:14] LABS: ARTERIAL BLOOD PO2 21.1 mmHg (80-100)
[2019-12-16] MEDS ORDERED: HYDRALAZINE HCL INJ/PF 20 MG/1 ML SDV IV ONE ×2 (07:19→11:21)
[2019-12-16] MEDS ORDERED: NITROGLYCERIN 2% OINTMENT 1 GM PACKET TP ONE (07:21)
--- NOTE | 2019-12-16 07:21 | RADIOLOGY REPORT (SQ) ---
EXAM: XR Chest, 1 View EXAM DATE/TIME: 12/16/2019 6:59 AM CLINICAL HISTORY: The patient is 49 years old and is Female; sobr TECHNIQUE: Frontal view of the chest. COMPARISON: Chest radiograph from 12/09/2019 FINDINGS: LUNGS: Interval development of a small to moderate right pleural effusion with underlying atelectasis and/or pneumonia in the right mid to lower lung. The left lung is grossly clear. PLEURAL SPACE: See above. No obvious pneumothorax. HEART: Stable moderate enlargement of the cardiac silhouette. MEDIASTINUM: Unremarkable. BONES/JOINTS: No acute osseous findings. TUBES, LINES AND DEVICES: Loop recorder again visualized projecting over the left chest. IMPRESSION: Interval development of a small to moderate right pleural effusion with underlying atelectasis and/or pneumonia in the right mid to lower lung.
[2019-12-16 07:42] LABS: APPEARANCE,URINE CLEAR; BILIRUBIN,URINE NEGATIVE (NEGATIVE); COLOR,URINE AMBER; GLUCOSE, URINE NEGATIVE (NEGATIVE); KETONES,URINE NEGATIVE (NEGATIVE); LEUKOCYTE ESTERASE,URINE TRACE (NEGATIVE); NITRITE,URINE NEGATIVE (NEGATIVE); PROTEIN,URINE 100 mg/dL (NEGATIVE); URINE SPECIFIC GRAVITY 1.013
[2019-12-16] MEDS ORDERED: ONDANSETRON HCL INJ/PF 4 MG/2 ML SDV IV ONE (08:25)
[2019-12-16] MEDS ORDERED: MORPHINE SULFATE 10 MG/ML INJ IV ONE (08:25)
[2019-12-16 09:20] LABS: INTERNATIONAL RATION (INR) 1.48; PROTHROMBIN TIME 18.1 SEC (11.4-15.4)
[2019-12-16 09:21] LABS: PARTIAL THROMBOPLASTIN TIME 27.4 SEC (23.5-35.8)
[2019-12-16 10:06] LABS: ALBUMIN 3.4 g/dL (3.5-5.0); ALKALINE PHOSPHATASE 170 U/L (38-126); ANION GAP 11 (5-19); ASPARTATE AMINO TRANSFERASE 40 U/L (14-36); BILIRUBIN,TOTAL 3.2 mg/dL (0.2-1.3); BLOOD UREA NITROGEN 15 mg/dL (7-20); CALCIUM 8.7 mg/dL (8.4-10.2); CARBON DIOXIDE 22 mmol/L (22-30); CHLORIDE 106 mmol/L (98-107); GLUCOSE 140 mg/dL (75-110); TOTAL PROTEIN 8.7 g/dL (6.3-8.2)
[2019-12-16 10:11] LABS: ALCOHOL < 10 mg/dL (NONE DETECTED)
[2019-12-16 10:12] LABS: POTASSIUM 4.5 mmol/L (3.6-5.0)
[2019-12-16 10:22] LABS: TROPONIN I 0.024 ng/mL
[2019-12-16 11:49] LABS: URINE AMPHETAMINES SCREEN NEGATIVE; URINE BARBITURATES SCREEN NEGATIVE; URINE BENZODIAZEPINES SCREEN NEGATIVE; URINE COCAINE SCREEN NEGATIVE; URINE MARIJUANA (THC) SCREEN NEGATIVE; URINE METHADONE SCREEN NEGATIVE; URINE PHENCYCLIDINE SCREEN NEGATIVE
[2019-12-16 12:13] LABS: ARTERIAL BLOOD BASE EXCESS 1.1 mmol/L; ARTERIAL BLOOD FIO2 4L; ARTERIAL BLOOD HCO3 24.9 mmol/L (20-24); ARTERIAL BLOOD O2 SATURATION 99.3 % (94-98); ARTERIAL BLOOD PCO2 36.7 mmHg (35-45); ARTERIAL BLOOD PH 7.45 (7.35-7.45); ARTERIAL BLOOD PO2 173.5 mmHg (80-100); ARTERIAL BLOOD TOTAL CO2 26.1 mmol/L (21-25)
[2019-12-16] MEDS ORDERED: MAG HYDROX/AL HYDROX/SIMETH SUSP 30 ML UDCUP PO PRN (14:08)
[2019-12-16] MEDS ORDERED: ONDANSETRON HCL INJ/PF 4 MG/2 ML SDV IV PRN (14:08)
[2019-12-16] MEDS ORDERED: DEXTROSE 50%-WATER 25 GM/50 ML DISP.SYRIN IV PRN ×2 (14:24)
[2019-12-16] MEDS ORDERED: GLUCAGON,HUMAN RECOMB 1 MG INJ IM PRN (14:24)
[2019-12-16] MEDS ORDERED: DEXTROSE 40% GEL 15 GM TUBE PO PRN ×2 (14:24)
[2019-12-16] MEDS ORDERED: LISINOPRIL 10 MG TABLET PO ONE (14:26)
[2019-12-16] MEDS ORDERED: SPIRONOLACTONE 25 MG TABLET PO SCH (14:30)
--- NOTE | 2019-12-16 14:56 | PDOC H&P ---
History of Present Illness Patient complains of: Shortness of breath History of Present Illness: PHILLIP DORANTES is a 49 year old female with a history of CHF, CVA with right- sided paralysis, diabetes mellitus type 2, hypertension, who presents to the hospital with complaints of shortness of breath for the past several days as well as decreased swelling in her lower extremities. Patient felt very dyspneic today prompting her arrival in the ER via ambulance. Patient admits to orthopnea and PND. She states that she takes her medications regularly and states that all her medications in her plastic bag on the table. However, on reviewing her pill bottles in her plastic bag, and noticed that these are all prescriptions from her last discharge from this hospital on October 14 for which she was only given 30-day supply. This leads me to believe the patient is highly noncompliant with her medications. Patient denies any sick contacts. She lives with her son. She is immobile due to her stroke. She seems to have some expressive aphasia as well but able to communicate decently. She denies history of COPD and states that she is not on any home oxygen or breathing machines at home. Denies fever chills. Patient was noted to be very dyspneic upon initial presentation in the ER and tripoding. She was subsequently placed on BiPAP and given Lasix 80 mg IV with adequate diuresis of over 2 L immediately. Able to be weaned off BiPAP. Past Medical History Cardiac Medical History: Reports: Congestive Heart Failure, Coronary Artery Disease, Hyperlipidema, Hypertension, Heart Murmur Pulmonary Medical History: Denies: Asthma, Chronic Obstructive Pulmonary Disease (COPD) Neurological Medical History: Denies: Seizures Endocrine Medical History: Reports: Diabetes Mellitus Type 2 Denies: Hyperthyroidism, Hypothyroidism GI Medical History: Denies: Cirrhosis, Hepatitis Musculoskeltal Medical History: Denies: Arthritis, Gout Skin Medical History: Denies: Eczema, Psoriasis Psychiatric Medical History: Denies: Depression Hematology: Denies: Anemia, Bleeding Tendencies Past Surgical History Past Surgical History: Reports: Cardiac Catheterization, Cholecystectomy, Coronary Stent Social History Smoking Status: Never Smoker Electronic Cigarette use?: No Frequency of Alcohol Use: None Hx Recreational Drug Use: No Drugs: None Hx Prescription Drug Abuse: No - Advance Directive Resuscitation Status: Full Code Family History Family History: DM, Hypertension Parental Family History Reviewed: Yes Children Family History Reviewed: Yes Sibling(s) Family History Reviewed.: NA Medication/Allergy Home Medications: No Home Medications 12/16/19 Allergies/Adverse Reactions: No Known Allergies Allergy (Verified 08/08/19 14:00) Review of Systems Constitutional: ABSENT: chills, fever(s) Eyes: ABSENT: visual disturbances Nose, Mouth, and Throat: ABSENT: sore throat Cardiovascular: PRESENT: edema, orthropnea. ABSENT: chest pain Respiratory: PRESENT: cough, dyspnea. ABSENT: sputum Gastrointestinal: ABSENT: abdominal pain, nausea, vomiting Genitourinary: ABSENT: dysuria Integumentary: ABSENT: diaphoresis Neurological: PRESENT: focal weakness - Right paralysis, other - Some speech impediment. ABSENT: dizziness Endocrine: ABSENT: polyuria Allergic/Immunologic: ABSENT: seasonal rhinorrhea Physical Exam Vital Signs: Temp Pulse Resp BP Pulse Ox 97.8 F 22 H 164/114 H 100 12/16/19 12:15 12/16/19 14:01 12/16/19 14:00 12/16/19 14:01 Intake & Output 12/15/19 12/16/19 12/17/19 06:59 06:59 06:59 Weight 107 kg General appearance: PRESENT: no acute distress, cooperative, morbidly obese Neck exam: PRESENT: JVD Respiratory exam: PRESENT: clear to auscultation ac, symmetrical, tachypnea, unlabored, other - Conversational dyspnea. ABSENT: wheezes Cardiovascular exam: PRESENT: +S1, +S2, tachycardia. ABSENT: irregular rhythm GI/Abdominal exam: PRESENT: ascites, distended, soft. ABSENT: rebound, rigid, tenderness Extremities exam: PRESENT: other - 3+ bilateral lower and upper extremity pitting edema Neurological exam: PRESENT: alert, awake, oriented to person, oriented to place, motor sensory deficit - Complete right-sided paralysis.. ABSENT: oriented to time, CN II-XII grossly intact - Mildly slurred speech. Seems to have mild expressive aphasia though able to communicate decently. Psychiatric exam: PRESENT: anxious. ABSENT: agitated Focused psych exam: ABSENT: pressured speech Skin exam: ABSENT: jaundice Results Laboratory Results: 12/16/19 06:44 12/16/19 08:50 12/16/19 12/16/19 12/16/19 06:44 06:44 06:44 WBC 5.5 RBC 4.07 Hgb 10.4 L Hct 34.2 L MCV 84 MCH 25.7 L MCHC 30.6 L RDW 21.1 H Plt Count 326 Seg Neutrophils % 71.1 Carbonic Acid HCO3/H2CO3 Ratio ABG pH ABG pCO2 ABG pO2 ABG HCO3 ABG O2 Saturation ABG Base Excess FiO2 Sodium Cancelled Potassium Cancelled Chloride Cancelled Carbon Dioxide Cancelled Anion Gap Cancelled BUN Cancelled Creatinine Cancelled Est GFR ( Amer) Cancelled Est GFR (Non-Af Amer) Cancelled Glucose Cancelled Lactic Acid Cancelled Calcium Cancelled Total Bilirubin Cancelled AST Cancelled Alkaline Phosphatase Cancelled Total Protein Cancelled Albumin Cancelled Urine Color Urine Appearance Urine pH Ur Specific [place] Urine Protein Urine Glucose (UA) Urine Ketones Urine Blood Urine Nitrite Ur Leukocyte Esterase Urine WBC (Auto) Urine RBC (Auto) 12/16/19 12/16/19 12/16/19 06:44 07:13 08:50 WBC RBC Hgb Hct MCV MCH MCHC RDW Plt Count Seg Neutrophils % Carbonic Acid 1.42 H HCO3/H2CO3 Ratio 17:1 ABG pH 7.35 ABG pCO2 47.3 H ABG pO2 21.1 L* ABG HCO3 25.5 H ABG O2 Saturation 32.3 L ABG Base Excess -0.4 FiO2 35% Sodium 139.3 Potassium 4.5 Chloride 106 Carbon Dioxide 22 Anion Gap 11 BUN 15 Creatinine 0.56 Est GFR ( Amer) > 60 Est GFR (Non-Af Amer) Glucose 140 H Lactic Acid Calcium 8.7 Total Bilirubin 3.2 H AST 40 H Alkaline Phosphatase 170 H Total Protein 8.7 H Albumin 3.4 L Urine Color TERESA Urine Appearance CLEAR Urine pH 6.0 Ur Specific [place] 1.013 Urine Protein 100 H Urine Glucose (UA) NEGATIVE Urine Ketones NEGATIVE Urine Blood SMALL H Urine Nitrite NEGATIVE Ur Leukocyte Esterase TRACE H Urine WBC (Auto) 9 Urine RBC (Auto) 3 12/16/19 12/16/19 12/16/19 08:50 11:30 13:25 WBC RBC Hgb Hct MCV MCH MCHC RDW Plt Count Seg Neutrophils % Carbonic Acid 1.10 HCO3/H2CO3 Ratio 22:1 ABG pH 7.45 ABG pCO2 36.7 ABG pO2 173.5 H ABG HCO3 24.9 H ABG O2 Saturation 99.3 H ABG Base Excess 1.1 FiO2 4L Sodium Potassium Chloride Carbon Dioxide Anion Gap BUN Creatinine Est GFR ( Amer) Est GFR (Non-Af Amer) Glucose Lactic Acid 2.2 H 1.9 Calcium Total Bilirubin AST Alkaline Phosphatase Total Protein Albumin Urine Color Urine Appearance Urine pH Ur Specific [place] Urine Protein Urine Glucose (UA) Urine Ketones Urine Blood Urine Nitrite Ur Leukocyte Esterase Urine WBC (Auto) Urine RBC (Auto) 12/16/19 12/16/19 06:44 08:50 Troponin I Cancelled 0.024 NT-Pro-B Natriuret Pep Cancelled 8260 H Impressions: Chest X-Ray 12/16/19 06:28 IMPRESSION: Interval development of a small to moderate right pleural effusion with underlying atelectasis and/or pneumonia in the right mid to lower lung. Assessment and Plan - Diagnosis (1) Acute combined systolic (congestive) and diastolic (congestive) heart failure Is this a current diagnosis for this admission?: Yes Plan: Patient is massively fluid overloaded. Likely secondary to noncompliance with medications. She also has really bad valvular heart disease and cardiomyopathy. Patient has diuresed very well with initial IV Lasix bolus in the ER. I will continue patient on Bumex 1 mg IV twice daily. Fluid restriction, daily weight, I's and O's strictly I will resume patient's lisinopril, resume Toprol her persistent tachycardia. Resume Aldactone. Echo 07/2019 shows EF of 30%, moderate to severe LV dysfunction, LVH, grade 2 diastolic dysfunction, moderate left atrial and right atrial dilation, moderate to severe MR, moderate AR, no . I will have cardiology evaluate tomorrow given concomitant valvular heart disease. (2) Anasarca Is this a current diagnosis for this admission?: Yes Plan: Secondary to CHF. Renal function is normal. (3) Acute respiratory failure with hypoxia Is this a current diagnosis for this admission?: Yes Plan: Initially requiring BiPAP. Currently doing well on nasal cannula. We will keep BiPAP on standby as needed for work of breathing. ABG shows no CO2 retention. (4) Poorly-controlled hypertension Is this a current diagnosis for this admission?: Yes Plan: Lisinopril and Aldactone. (5) Diabetes mellitus type 2 in obese Is this a current diagnosis for this admission?: Yes Plan: Resume metformin. Start sliding scale coverage and Accu-Cheks. Hemoglobin A1c (6) History of CVA (cerebrovascular accident) Is this a current diagnosis for this admission?: Yes Plan: Seems to have left patient with right-sided hemiplegia as well as some speech impediment which I believe to be mild expressive aphasia. Continue aspirin and atorvastatin. (7) Morbid obesity with BMI of 40.0-44.9, adult Is this a current diagnosis for this admission?: Yes - Time Time Spent with patient: 35 or more minutes
--- NOTE | 2019-12-16 14:58 | ER Document Report ---
Entered by TRISTNO LINDA SCRIBE 12/16/19 0623 Acting as scribe for:ROXANNA NOBLE MD ED Respiratory Problem - General Chief Complaint: Respiratory Distress Stated Complaint: RESPIRATORY DISTRESS Information source: Patient Notes: This 49 year old female patient presents to the emergency department today with arrival by EMS. Patient reports she has been short of breath the past x2-3 days and it has been worsening over time. Patient reports swelling everywhere and a history of CHF, CAD, and HTN. Patient denies a history of covid and reports visiting the ED x1 week ago. TRAVEL OUTSIDE OF THE [place] IN LAST 30 DAYS: No - Related Data Allergies/Adverse Reactions: No Known Allergies Allergy (Verified 08/08/19 14:00) Past Medical History - General Information source: Patient - Social History Smoking Status: Unknown if Ever Smoked Family History: Reviewed & Not Pertinent, DM, Other - Past Medical History Cardiac Medical History: Reports: Hx Congestive Heart Failure, Hx Coronary Artery Disease, Hx Heart Attack, Hx Hypercholesterolemia, Hx Hypertension, Hx Heart Murmur Pulmonary Medical History: Endocrine Medical History: Reports: Hx Diabetes Mellitus Type 1, Hx Diabetes Mellitus Type 2 Past Surgical History: Reports: Hx Cardiac Catheterization, Hx Cholecystectomy, Hx Coronary Stent - Immunizations Hx Diphtheria, Pertussis, Tetanus Vaccination: Yes Review of Systems - Review of Systems Constitutional: No symptoms reported EENT: No symptoms reported Cardiovascular: No symptoms reported Respiratory: See HPI, Short of breath Gastrointestinal: No symptoms reported Genitourinary: No symptoms reported Female Genitourinary: No symptoms reported Musculoskeletal: See HPI, Other - Swelling Skin: No symptoms reported Hematologic/Lymphatic: No symptoms reported Neurological/Psychological: No symptoms reported -: Yes All other systems reviewed and negative Physical Exam - Vital signs Vitals: Resp Pulse Ox 27 H 100 12/16/19 06:21 12/16/19 06:21 - General General appearance: Appears well, Alert - HEENT Head: Normocephalic, Atraumatic Eyes: Normal Pupils: PERRL - Respiratory Respiratory status: Other - Shallow breathing Chest status: Nontender Breath sounds: Other - Diminished in bases bilaterally. No: Wheezing Chest palpation: Normal - Cardiovascular Rhythm: Tachycardia Heart sounds: Normal auscultation, S1 appreciated, S2 appreciated Murmur: No - Abdominal Inspection: Normal, Obese Distension: Distended Bowel sounds: Normal Tenderness: Nontender - Extremities General upper extremity: Edema - 4+ bilateral General lower extremity: Edema - 4+ bilateral Notes: Anasarca of the bilateral upper and lower extremities. - Neurological Neuro grossly intact: Yes Cognition: Normal Orientation: AAOx4 Speech: Normal - Psychological Associated symptoms: Normal affect, Normal mood - Skin Skin Temperature: Warm Skin Moisture: Dry Skin Color: Normal Course - Re-evaluation Re-evalutation: 12/16/19 14:50 Patient arrived by EMS on BiPAP. Patient had received nebulizer treatment and Solu-Medrol in route. Patient was in respiratory Pitt[place] distress extremis with diminished breath sounds and all quadrants and bases. Patient was maintained on BiPAP until the improvement occurred after diuresis. Patient's chest x-ray shows cardiomegaly CHF and right pleural effusion. Patient's blood pressure was systolic and diastolic hypertensive and required medications to reduce her blood pressure. Patient diuresed over 4000 mL of urine after IV Lasix 80 mg. Patient is oxygen requirement was reduced to 4 L nasal cannula and patient maintains a sat of 100% on 4 L at this time. Patient did have an elevated troponin of 0.024 with no EKG changes to suggest a STEMI - Vital Signs Vital signs: Temp Pulse Resp BP Pulse Ox 97.8 F 17 178/115 H 98 12/16/19 12:15 12/16/19 14:30 12/16/19 14:30 12/16/19 14:30 Patient has systolic diastolic hypertension treated with IV hydralazine and Nitropaste. - Laboratory Result Diagrams: 12/16/19 06:44 12/16/19 08:50 Laboratory results interpreted by me: 12/16/19 12/16/19 12/16/19 06:44 06:44 07:13 Hgb 10.4 L Hct 34.2 L MCH 25.7 L MCHC 30.6 L RDW 21.1 H PT Carbonic Acid 1.42 H ABG pCO2 47.3 H ABG pO2 21.1 L* ABG HCO3 25.5 H ABG Total CO2 27.0 H ABG O2 Saturation 32.3 L Glucose Lactic Acid Total Bilirubin Direct Bilirubin AST Alkaline Phosphatase NT-Pro-B Natriuret Pep Total Protein Albumin Urine Protein 100 H Urine Blood SMALL H Urine Urobilinogen 4.0 H Ur Leukocyte Esterase TRACE H 12/16/19 12/16/19 12/16/19 08:50 08:50 08:50 Hgb Hct MCH MCHC RDW PT 18.1 H Carbonic Acid ABG pCO2 ABG pO2 ABG HCO3 ABG Total CO2 ABG O2 Saturation Glucose 140 H Lactic Acid 2.2 H Total Bilirubin 3.2 H Direct Bilirubin 2.0 H AST 40 H Alkaline Phosphatase 170 H NT-Pro-B Natriuret Pep Total Protein 8.7 H Albumin 3.4 L Urine Protein Urine Blood Urine Urobilinogen Ur Leukocyte Esterase 12/16/19 12/16/19 08:50 11:30 Hgb Hct MCH MCHC RDW PT Carbonic Acid ABG pCO2 ABG pO2 173.5 H ABG HCO3 24.9 H ABG Total CO2 26.1 H ABG O2 Saturation 99.3 H Glucose Lactic Acid Total Bilirubin Direct Bilirubin AST Alkaline Phosphatase NT-Pro-B Natriuret Pep 8260 H Total Protein Albumin Urine Protein Urine Blood Urine Urobilinogen Ur Leukocyte Esterase Elevated blood sugar of 140 elevated BNP of 8260, and a lactic acid of 2.2. - Diagnostic Test Radiology reviewed: Image reviewed, Reports reviewed Radiology results interpreted by me: 12/16/19 14:53 Chest x-ray shows cardiomegaly right pleural effusion atelectasis versus infiltrate in the right base. 12/16/19 14:53 Twelve-lead EKG - EKG Interpretation by Me Additional EKG results interpreted by me: 12/16/19 06:48 Twelve-lead EKG: Sinus tachycardia rate of 116 low voltage throughout borderline R wave progression anterior leads borderline T abnormalities diffuse Critical Care Note - Critical Care Note Total time excluding time spent on procedures (mins): 59 - Management of respiratory distress congestive heart failure, hypertensive urgency and cardiac monitoring and management of fluids and urine output. Discharge - Discharge Clinical Impression: Diabetes mellitus type 2 in obese, Noncompliance with medication regimen, Chronic combined systolic and diastolic congestive heart failure, Tachycardia, Hypertensive urgency, Elevated troponin Congestive heart failure Qualifiers: Heart failure type: unspecified Heart failure chronicity: acute on chronic Qualified Code(s): I50.9 - Heart failure, unspecified Obesity Qualifiers: Body mass index: BMI 31.0-31.9 Acute congestive heart failure Qualifiers: Heart failure type: systolic Qualified Code(s): I50.21 - Acute systolic (congestive) heart failure Condition: Critical Disposition: ADMITTED INPATIENT Admitting Provider: On (Hospitalist) Unit Admitted: IMCU I personally performed the services described in the documentation, reviewed and edited the documentation which was dictated to the scribe in my presence, and it accurately records my words and actions.
[2019-12-16] MEDS: POTASSIUM CHLORIDE 10 MEQ TABLET.ER PO SCH (15:01)
[2019-12-16] MEDS: METOPROLOL SUCCINATE 50 MG TAB.SR.24H PO SCH ×2 (15:01→21:09)
[2019-12-16] MEDS ORDERED: HYDRALAZINE HCL INJ/PF 20 MG/1 ML SDV IV PRN ×3 (16:23→17:10)
[2019-12-16] MEDS ORDERED: LORAZEPAM 1 MG TABLET PO PRN (16:29)
[2019-12-16] MEDS ORDERED: LABETALOL HCL INJ 20 MG/4 ML DISP.SYRIN IV ONE (17:00)
[2019-12-16] MEDS ORDERED: ACETAMINOPHEN 325 MG TABLET PO PRN (17:07)
[2019-12-16] MEDS: METFORMIN HCL 500 MG TABLET PO SCH (17:13)
[2019-12-16] MEDS: SPIRONOLACTONE 25 MG TABLET PO SCH (17:14)
[2019-12-16] MEDS: BUMETANIDE INJ/PF 1 MG/4 ML SDV IV SCH (17:14)
[2019-12-16] MEDS: NYSTATIN TOPICAL POWDER 15 GM TP SCH (17:37)
[2019-12-16] MEDS ORDERED: BUMETANIDE INJ/PF 1 MG/4 ML SDV IV SCH (18:00)
[2019-12-16] MEDS: INSULIN LISPRO 100 UNIT/ML 3 ML VIAL SUBCUT SCH ×2 (19:47→21:14)
--- NOTE | 2019-12-16 20:24 | EKG REPORT ---
SEVERITY:- ABNORMAL ECG - SINUS TACHYCARDIA PAIRED VENTRICULAR PREMATURE COMPLEXES LOW VOLTAGE THROUGHOUT BORDERLINE R WAVE PROGRESSION, ANTERIOR LEADS BORDERLINE T ABNORMALITIES, DIFFUSE LEADS : Confirmed by: Marin Pulido MD 16-Dec-2019 20:22:59
[2019-12-16] MEDS: ATORVASTATIN CALCIUM 40 MG TABLET PO SCH (21:09)
[2019-12-16] MEDS ORDERED: POTASSIUM CHLORIDE 10 MEQ TABLET.ER PO SCH (22:00)
[2019-12-17] MEDS ORDERED: IPRATROPIUM/ALBUTEROL 0.5-2.5 MG/3 ML AMPUL NEB ONE (04:18)
[2019-12-17] MEDS ORDERED: IPRATROPIUM/ALBUTEROL 0.5-2.5 MG/3 ML AMPUL NEB PRN (04:27)
[2019-12-17 06:11] LABS: INTERNATIONAL RATION (INR) 1.39; PROTHROMBIN TIME 17.2 SEC (11.4-15.4)
[2019-12-17 06:16] LABS: ALBUMIN 2.7 g/dL (3.5-5.0); ALKALINE PHOSPHATASE 127 U/L (38-126); ANION GAP 7 (5-19); ASPARTATE AMINO TRANSFERASE 26 U/L (14-36); BILIRUBIN,DIRECT 1.8 mg/dL (0.0-0.4); BILIRUBIN,TOTAL 2.7 mg/dL (0.2-1.3); BLOOD UREA NITROGEN 17 mg/dL (7-20); CALCIUM 8.4 mg/dL (8.4-10.2); CARBON DIOXIDE 29 mmol/L (22-30); CHLORIDE 104 mmol/L (98-107); GLUCOSE 190 mg/dL (75-110); POTASSIUM 3.7 mmol/L (3.6-5.0); TOTAL PROTEIN 7.5 g/dL (6.3-8.2)
[2019-12-17 07:08] LABS: HEMATOCRIT 32.8 % (36.0-47.0); HEMOGLOBIN 10.4 g/dL (12.0-15.5); MEAN CORPUSCULAR HEMOGLOBIN 25.6 pg (27.0-33.4); MEAN CORPUSCULAR HGB CONC 31.7 g/dL (32.0-36.0); MEAN CORPUSCULAR VOLUME 81 fl (80-97); PLATELET COUNT 242 10^3/uL (150-450); RED BLOOD COUNT 4.06 10^6/uL (3.72-5.28); RED CELL DISTRIBUTION WIDTH 19.9 % (11.5-14.0); WHITE BLOOD COUNT 4.6 10^3/uL (4.0-10.5)
[2019-12-17] MEDS: METFORMIN HCL 500 MG TABLET PO SCH ×2 (09:20→17:10)
[2019-12-17] MEDS: MAGNESIUM OXIDE 400 MG TABLET PO SCH (09:20)
[2019-12-17] MEDS: LISINOPRIL 10 MG TABLET PO SCH (09:20)
[2019-12-17] MEDS: INSULIN LISPRO 100 UNIT/ML 3 ML VIAL SUBCUT SCH ×4 (09:20→22:17)
[2019-12-17] MEDS: METOPROLOL SUCCINATE 50 MG TAB.SR.24H PO SCH ×2 (09:20→22:17)
[2019-12-17] MEDS: POTASSIUM CHLORIDE 10 MEQ TABLET.ER PO SCH (09:20)
[2019-12-17] MEDS: SPIRONOLACTONE 25 MG TABLET PO SCH ×2 (09:21→17:11)
[2019-12-17] MEDS: BUMETANIDE INJ/PF 1 MG/4 ML SDV IV SCH (09:21)
[2019-12-17] MEDS: ENOXAPARIN SODIUM INJ 40 MG/0.4 ML DISP.SYRIN SUBCUT SCH (09:21)
[2019-12-17] MEDS: ASPIRIN 81 MG TABLET, ENT COATED PO SCH (09:21)
[2019-12-17] MEDS ORDERED: LORAZEPAM 1 MG TABLET PO PRN (10:06)
--- NOTE | 2019-12-17 11:29 | PDOC PROGRESS REPORT ---
Subjective Progress Note for:: 12/17/19 Subjective:: PHILLIP DORANTES is a 49 year old female with a history of CHF, CVA with right- sided paralysis, diabetes mellitus type 2, hypertension, who presents to the hospital with complaints of shortness of breath for the past several days as well as decreased swelling in her lower extremities. Patient felt very dyspneic today prompting her arrival in the ER via ambulance. Patient admits to orthopnea and PND. She states that she takes her medications regularly and states that all her medications in her plastic bag on the table. However, on reviewing her pill bottles in her plastic bag, and noticed that these are all prescriptions from her last discharge from this hospital on October 14 for which she was only given 30-day supply. This leads me to believe the patient is highly noncompliant with her medications. Patient denies any sick contacts. She lives with her son. She is immobile due to her stroke. She seems to have some expressive aphasia as well but able to communicate decently. She denies history of COPD and states that she is not on any home oxygen or breathing machines at home. Denies fever chills. Patient was noted to be very dyspneic upon initial presentation in the ER and tripoding. She was subsequently placed on BiPAP and given Lasix 80 mg IV with adequate diuresis of over 2 L immediately. Able to be weaned off BiPAP. 12/17/2019. No acute events. Patient Resting in bed in no apparent distress, alert and oriented, cooperative with physical examination, on nasal cannula in no apparent distress, denies any shortness of breath, chest pain, nausea, vomiting. Reason For Visit: HEART FAILURE, SEVERE ANASARCA Physical Exam Vital Signs: Temp Pulse Resp BP Pulse Ox 97.3 F 85 20 129/84 H 99 12/17/19 08:38 12/17/19 08:38 12/17/19 08:38 12/17/19 08:38 12/17/19 08:38 Intake & Output 12/16/19 12/17/19 12/18/19 06:59 06:59 06:59 Intake Total 670 Output Total 1225 Balance -555 Weight 107 kg 100.4 kg General appearance: PRESENT: no acute distress, obese, well-developed, well- nourished Head exam: PRESENT: atraumatic, normocephalic Respiratory exam: PRESENT: clear to auscultation ac. ABSENT: rales, rhonchi, wheezes Cardiovascular exam: PRESENT: RRR. ABSENT: diastolic murmur, rubs, systolic murmur GI/Abdominal exam: PRESENT: normal bowel sounds, soft. ABSENT: distended, guarding, mass, organolmegaly, rebound, tenderness Extremities exam: PRESENT: +2 edema Neurological exam: PRESENT: alert, awake, oriented to person, oriented to place, CN II-XII grossly intact, motor sensory deficit - Right upper and lower e xtremity 2/5 chronic. Results Laboratory Results: 12/17/19 06:47 12/17/19 05:27 12/16/19 12/16/19 12/16/19 11:30 13:25 17:33 WBC RBC Hgb Hct MCV MCH MCHC RDW Plt Count Carbonic Acid 1.10 HCO3/H2CO3 Ratio 22:1 ABG pH 7.45 ABG pCO2 36.7 ABG pO2 173.5 H ABG HCO3 24.9 H ABG O2 Saturation 99.3 H ABG Base Excess 1.1 FiO2 4L Sodium Potassium Chloride Carbon Dioxide Anion Gap BUN Creatinine Est GFR ( Amer) Glucose Lactic Acid 1.9 2.0 Calcium Magnesium Total Bilirubin AST Alkaline Phosphatase Total Protein Albumin TSH 12/17/19 12/17/19 12/17/19 05:27 05:27 05:27 WBC Cancelled RBC Cancelled Hgb Cancelled Hct Cancelled MCV Cancelled MCH Cancelled MCHC Cancelled RDW Cancelled Plt Count Cancelled Carbonic Acid HCO3/H2CO3 Ratio ABG pH ABG pCO2 ABG pO2 ABG HCO3 ABG O2 Saturation ABG Base Excess FiO2 Sodium 139.5 Potassium 3.7 Chloride 104 Carbon Dioxide 29 Anion Gap 7 BUN 17 Creatinine 0.65 Est GFR ( Amer) > 60 Glucose 190 H Lactic Acid Calcium 8.4 Magnesium 1.5 L Total Bilirubin 2.7 H AST 26 Alkaline Phosphatase 127 H Total Protein 7.5 Albumin 2.7 L TSH 1.67 12/17/19 06:47 WBC 4.6 RBC 4.06 Hgb 10.4 L Hct 32.8 L MCV 81 MCH 25.6 L MCHC 31.7 L RDW 19.9 H Plt Count 242 Carbonic Acid HCO3/H2CO3 Ratio ABG pH ABG pCO2 ABG pO2 ABG HCO3 ABG O2 Saturation ABG Base Excess FiO2 Sodium Potassium Chloride Carbon Dioxide Anion Gap BUN Creatinine Est GFR ( Amer) Glucose Lactic Acid Calcium Magnesium Total Bilirubin AST Alkaline Phosphatase Total Protein Albumin TSH 12/16/19 12/16/19 12/16/19 06:44 08:50 17:33 Troponin I Cancelled 0.024 0.020 NT-Pro-B Natriuret Pep Cancelled 8260 H Impressions: Chest X-Ray 12/16/19 06:28 IMPRESSION: Interval development of a small to moderate right pleural effusion with underlying atelectasis and/or pneumonia in the right mid to lower lung. Assessment and Plan - Diagnosis (1) Acute combined systolic (congestive) and diastolic (congestive) heart failure Is this a current diagnosis for this admission?: Yes Plan: Mild improvement of volume overload. Negative fluid balance. Patient still has 3+ pitting edema in bilateral lower extremities. Likely secondary to noncompliance with medications. History of valvular heart disease and cardiomyopathy. Good response with IV diuretics. Continue Bumex 2 mg IV twice daily. Strict in and out, fluid restriction, daily weights. Fluid restriction, daily weight, I's and O's strictly Continue VI, beta-blockers and Aldactone. Echo 07/2019 shows EF of 30%, moderate to severe LV dysfunction, LVH, grade 2 diastolic dysfunction, moderate left atrial and right atrial dilation, moderate to severe MR, moderate AR, no . Cardiology consulted for further evaluation. Patient does not have established cardiology care as outpatient. (2) Acute respiratory failure with hypoxia Is this a current diagnosis for this admission?: Yes Plan: Improving. SPO2 WNL on 2 L nasal cannula. Secondary to volume overload caused by decompensated heart failure. BiPAP PRN, supplemental O2, incentive spirometry, flutter valve, DuoNebs as needed. (3) Anasarca Is this a current diagnosis for this admission?: Yes Plan: Secondary to CHF. Renal function is normal. (4) Diabetes mellitus type 2 in obese Is this a current diagnosis for this admission?: Yes Plan: Controlled. Hemoglobin A1c 6.4. Takes metformin at home. Resume home meds. Diabetic diet. Sliding scale insulin, Accu-Chek, hypoglycemia protocol. Resume home meds upon discharge. (5) History of CVA (cerebrovascular accident) Is this a current diagnosis for this admission?: Yes Plan: Persistent unchanged right-sided hemiplegia. Continue aspirin and atorvastatin. Continue fall and seizure precautions. Continue PT OT. (6) Poorly-controlled hypertension Is this a current diagnosis for this admission?: Yes Plan: Improving. Continue lisinopril, Aldactone, beta-blockers and diuretics. Adjust meds as needed. Outpatient PCP and cardiology follow-up. (7) Morbid obesity with BMI of 40.0-44.9, adult Is this a current diagnosis for this admission?: Yes Plan: TSH 1.67. BMI 38.0. Diet and lifestyle modification recommended.
[2019-12-17] MEDS: NYSTATIN TOPICAL POWDER 15 GM TP SCH (13:54)
[2019-12-17] MEDS ORDERED: BUMETANIDE INJ/PF 1 MG/4 ML SDV IV SCH (18:00)
[2019-12-17] MEDS: ATORVASTATIN CALCIUM 40 MG TABLET PO SCH (22:17)
[2019-12-17] MEDS: TRAMADOL HCL 50 MG TABLET PO PRN (22:17)
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
[2019-12-18 05:33] LABS: HEMATOCRIT 32.3 % (36.0-47.0); MEAN CORPUSCULAR HEMOGLOBIN 25.6 pg (27.0-33.4); MEAN CORPUSCULAR HGB CONC 31.1 g/dL (32.0-36.0); MEAN CORPUSCULAR VOLUME 82 fl (80-97); PLATELET COUNT 275 10^3/uL (150-450); RED BLOOD COUNT 3.93 10^6/uL (3.72-5.28); WHITE BLOOD COUNT 6.5 10^3/uL (4.0-10.5)
[2019-12-18] MEDS: BUMETANIDE INJ/PF 1 MG/4 ML SDV IV SCH ×3 (05:43→22:50)
[2019-12-18 06:00] LABS: ALBUMIN 2.9 g/dL (3.5-5.0); ALKALINE PHOSPHATASE 121 U/L (38-126); ANION GAP 7 (5-19); ASPARTATE AMINO TRANSFERASE 23 U/L (14-36); BILIRUBIN,DIRECT 1.5 mg/dL (0.0-0.4); BILIRUBIN,TOTAL 2.2 mg/dL (0.2-1.3); BLOOD UREA NITROGEN 23 mg/dL (7-20); CALCIUM 8.6 mg/dL (8.4-10.2); CARBON DIOXIDE 26 mmol/L (22-30); CHLORIDE 105 mmol/L (98-107); GLUCOSE 113 mg/dL (75-110); POTASSIUM 4.1 mmol/L (3.6-5.0); TOTAL PROTEIN 7.8 g/dL (6.3-8.2)
[2019-12-18] MEDS ORDERED: MAGNESIUM SULFATE/D5W 1 GM/100 ML RTUPB IV ONE (07:32)
[2019-12-18] MEDS: LISINOPRIL 10 MG TABLET PO SCH (10:10)
[2019-12-18] MEDS: METOPROLOL SUCCINATE 50 MG TAB.SR.24H PO SCH ×2 (10:10→22:50)
[2019-12-18] MEDS: METFORMIN HCL 500 MG TABLET PO SCH ×2 (10:10→17:56)
[2019-12-18] MEDS: POTASSIUM CHLORIDE 10 MEQ TABLET.ER PO SCH (10:10)
[2019-12-18] MEDS: SPIRONOLACTONE 25 MG TABLET PO SCH ×2 (10:10→17:56)
[2019-12-18] MEDS: ASPIRIN 81 MG TABLET, ENT COATED PO SCH (10:10)
[2019-12-18] MEDS: MAGNESIUM OXIDE 400 MG TABLET PO SCH (10:11)
[2019-12-18] MEDS: ENOXAPARIN SODIUM INJ 40 MG/0.4 ML DISP.SYRIN SUBCUT SCH (10:11)
[2019-12-18] MEDS: INSULIN LISPRO 100 UNIT/ML 3 ML VIAL SUBCUT SCH ×4 (10:11→22:50)
[2019-12-18] MEDS: NYSTATIN TOPICAL POWDER 15 GM TP SCH (10:11)
--- NOTE | 2019-12-18 10:54 | PDOC PROGRESS REPORT ---
Subjective Progress Note for:: 12/18/19 Subjective:: PHILLIP DORANTES is a 49 year old female with a history of CHF, CVA with right- sided paralysis, diabetes mellitus type 2, hypertension, who presents to the hospital with complaints of shortness of breath for the past several days as well as decreased swelling in her lower extremities. Patient felt very dyspneic today prompting her arrival in the ER via ambulance. Patient admits to orthopnea and PND. She states that she takes her medications regularly and states that all her medications in her plastic bag on the table. However, on reviewing her pill bottles in her plastic bag, and noticed that these are all prescriptions from her last discharge from this hospital on October 14 for which she was only given 30-day supply. This leads me to believe the patient is highly noncompliant with her medications. Patient denies any sick contacts. She lives with her son. She is immobile due to her stroke. She seems to have some expressive aphasia as well but able to communicate decently. She denies history of COPD and states that she is not on any home oxygen or breathing machines at home. Denies fever chills. Patient was noted to be very dyspneic upon initial presentation in the ER and tripoding. She was subsequently placed on BiPAP and given Lasix 80 mg IV with adequate diuresis of over 2 L immediately. Able to be weaned off BiPAP. 12/17/2019. No acute events. Patient Resting in bed in no apparent distress, alert and oriented, cooperative with physical examination, on nasal cannula in no apparent distress, denies any shortness of breath, chest pain, nausea, vomiting. 12/18/2019. No acute events overnight. Patient resting in bed with no apparent distress, on nasal cannula SPO2 WNL, alert and oriented, denies any fever, chills, nausea, vomiting, diarrhea, constipation or any urinary symptoms. Reason For Visit: HEART FAILURE, SEVERE ANASARCA Physical Exam Vital Signs: Temp Pulse Resp BP Pulse Ox 97.4 F 76 16 130/66 H 99 12/18/19 07:45 12/18/19 07:45 12/18/19 07:45 12/18/19 07:45 12/18/19 07:45 Intake & Output 12/17/19 12/18/19 12/19/19 06:59 06:59 06:59 Intake Total 670 1062 Output Total 1225 975 Balance -555 87 Weight 100.4 kg 105 kg General appearance: PRESENT: no acute distress, obese, other - Edematous. Head exam: PRESENT: atraumatic, normocephalic Respiratory exam: PRESENT: clear to auscultation ac. ABSENT: rales, rhonchi, wheezes Cardiovascular exam: PRESENT: RRR. ABSENT: diastolic murmur, rubs, systolic murmur GI/Abdominal exam: PRESENT: normal bowel sounds, soft. ABSENT: distended, guarding, mass, organolmegaly, rebound, tenderness Extremities exam: PRESENT: full ROM, +2 edema. ABSENT: calf tenderness, clubbing, pedal edema Neurological exam: PRESENT: alert, awake, oriented to person, oriented to place, oriented to time, oriented to situation, CN II-XII grossly intact. ABSENT: motor sensory deficit Results Laboratory Results: 12/18/19 05:07 12/18/19 05:07 12/18/19 12/18/19 05:07 05:07 WBC 6.5 RBC 3.93 Hgb 10.0 L Hct 32.3 L MCV 82 MCH 25.6 L MCHC 31.1 L RDW 20.0 H Plt Count 275 Sodium 137.8 Potassium 4.1 Chloride 105 Carbon Dioxide 26 Anion Gap 7 BUN 23 H Creatinine 0.88 Est GFR ( Amer) > 60 Glucose 113 H Calcium 8.6 Magnesium 1.5 L Total Bilirubin 2.2 H AST 23 Alkaline Phosphatase 121 Total Protein 7.8 Albumin 2.9 L 12/16/19 07:13 Throat Throat Culture - Final NORMAL TAVIA 12/16/19 12/16/19 12/16/19 06:44 08:50 17:33 Troponin I Cancelled 0.024 0.020 NT-Pro-B Natriuret Pep Cancelled 8260 H Impressions: Chest X-Ray 12/16/19 06:28 IMPRESSION: Interval development of a small to moderate right pleural effusion with underlying atelectasis and/or pneumonia in the right mid to lower lung. Assessment and Plan - Diagnosis (1) Acute combined systolic (congestive) and diastolic (congestive) heart failure Is this a current diagnosis for this admission?: Yes Plan: Mild improvement of volume overload. Negative fluid balance. Patient still has 3+ pitting edema in bilateral lower extremities. Likely secondary to noncompliance with medications. History of valvular heart disease and cardiomyopathy. Good response with IV diuretics. Continue Bumex 2 mg IV 3 times daily. Strict in and out, fluid restriction, daily weights. Continue VI, beta-blockers, diuretics and Aldactone Echo 07/2019 shows EF of 30%, moderate to severe LV dysfunction, LVH, grade 2 diastolic dysfunction, moderate left atrial and right atrial dilation, moderate to severe MR, moderate AR, no . Neurology consulted. Recommendations noted. (2) Acute respiratory failure with hypoxia Is this a current diagnosis for this admission?: Yes Plan: Improving. SPO2 WNL on 2 L nasal cannula. Secondary to volume overload caused by decompensated heart failure. BiPAP PRN, supplemental O2, incentive spirometry, flutter valve, DuoNebs as needed. (3) Anasarca Is this a current diagnosis for this admission?: Yes Plan: Secondary to CHF. Renal function is normal. Plan as per above. (4) Diabetes mellitus type 2 in obese Is this a current diagnosis for this admission?: Yes Plan: Controlled. Hemoglobin A1c 6.4. Takes metformin at home. Resume home meds. Diabetic diet. Sliding scale insulin, Accu-Chek, hypoglycemia protocol. Resume home meds upon discharge. (5) History of CVA (cerebrovascular accident) Is this a current diagnosis for this admission?: Yes Plan: Persistent unchanged right-sided hemiplegia. Continue aspirin and atorvastatin. Continue fall and seizure precautions. Continue PT OT. (6) Poorly-controlled hypertension Is this a current diagnosis for this admission?: Yes Plan: Improving. Continue lisinopril, Aldactone, beta-blockers and diuretics. Adjust meds as needed. Outpatient PCP and cardiology follow-up. (7) Morbid obesity with BMI of 40.0-44.9, adult Is this a current diagnosis for this admission?: Yes Plan: TSH 1.67. BMI 38.0. Diet and lifestyle modification recommended. (8) Noncompliance with medication regimen Is this a current diagnosis for this admission?: Yes Plan: Patient has recurrent hospitalization with decompensated heart failure. Mostly due to medication noncompliance. As per my conversation patient is stating that she is compliant and her son who is living with her is assisting her with her medication. I have suggested for patient to be transferred to either SNF or retirement where she can get help with her PT, medication administration and assistance with her ADLs, but patient insists that she is well taken care of at home and her son is taking care of her. Patient will benefit from being discharged with home health and home PT.
[2019-12-18] MEDS: TRAMADOL HCL 50 MG TABLET PO PRN (22:50)
--- NOTE | 2019-12-18 23:33 | Progress Note ---
Provider Note Provider Note: CARDIOLOGY PROGRESS NOTE by election has been on 12/18/2019. SUBJECTIVE: Patient still complains of shortness of breath and orthopnea. She has no chest pain. There is no arrhythmias seen on the monitor. Leg edema is slightly better. She complains of generalized fatigue and generalized weakness. Medical physical EXAMINATION: The patient is moderate to morbidly obese. Selected Entries 12/18/19 11:30 Temperature 97.2 F Temperature Oral Source Pulse Rate 77 Respiratory 16 Rate Blood Pressure 132/79 H Blood Pressure 96 Mean BP Location Right Arm BP Position Sitting O2 Sat by Pulse 98 Oximetry Oxygen Flow 1.50 Rate Oxygen Delivery Nasal Cannula Method HEAD: Head is atraumatic normocephalic. EYES: Pupils are equal round regular react to light accommodation. Extraocular movements are normal. There is no clinical pallor. There is no scleral icterus. EARS: Tympanic membranes are intact. External auditory canals are clear. NOSE: There is no deviated nasal septum. There is no inflammation of the nasal mucous membrane. MOUTH: His membranes of mouth are moist tongue is moist there is no ulcers there is no bleeding from the gums. THROAT: There is no exudates in the throat. There is no redness of the oropharynx. SKIN: There is no petechia or ecchymosis. There is no skin lesions or skin rashes. NECK: Is supple. There is no JVD. Carotids are equal there is no bruit. There is no lymphadenopathy. There is no goiter. HEART: S1-S2 is heard there is no S3 gallop there is no S4 gallop. There is systolic murmur left sternal border and the apex there is no rub. ABDOMEN: Is soft obese. There is mild tenderness in the right palpation right upper quadrant. There is no rebound or guarding.. Or rigidity. There is no hepatosplenic megaly. Bowel sounds are well heard. EXTREMITIES: Femorals are deep. The femorals are diminished. There is 1+ pedal edema. There is venous stasis dermatitis. There is no cyanosis or clubbing. Capillary refill is normal. There is no DVT or cellulitis. There is no calf tenderness.. RESEARCH CLERK: The patient is conscious awake alert but seems to be confused and not able to give a good history, she has mild right-sided weakness. With no focal deficits. Psychiatric: The patient is not agitated or anxious. The patient's 24-hour intake is 1062 mL and a total of 24-hour output is 975 mL. Labs- All tests 24 hr 12/18/19 12/18/19 12/18/19 05:07 05:07 07:42 WBC 6.5 RBC 3.93 Hgb 10.0 L Hct 32.3 L MCV 82 MCH 25.6 L MCHC 31.1 L RDW 20.0 H Plt Count 275 Sodium 137.8 Potassium 4.1 Chloride 105 Carbon Dioxide 26 Anion Gap 7 BUN 23 H Creatinine 0.88 Est GFR ( Amer) > 60 Est GFR (MDRD) Non-Af > 60 Glucose 113 H POC Glucose 123 H Calcium 8.6 Magnesium 1.5 L Total Bilirubin 2.2 H Direct Bilirubin 1.5 H Neonat Total Bilirubin Not Reportable Neonat Direct Bilirubin Not Reportable Neonat Indirect Bili Not Reportable AST 23 ALT 10 Alkaline Phosphatase 121 Total Protein 7.8 Albumin 2.9 L 12/18/19 12/18/19 12/18/19 11:31 15:34 21:35 WBC RBC Hgb Hct MCV MCH MCHC RDW Plt Count Sodium Potassium Chloride Carbon Dioxide Anion Gap BUN Creatinine Est GFR ( Amer) Est GFR (MDRD) Non-Af Glucose POC Glucose 127 H 120 H 143 H Calcium Magnesium Total Bilirubin Direct Bilirubin Neonat Total Bilirubin Neonat Direct Bilirubin Neonat Indirect Bili AST ALT Alkaline Phosphatase Total Protein Albumin Chest X-Ray 12/16/19 06:28 IMPRESSION: Interval development of a small to moderate right pleural effusion with underlying atelectasis and/or pneumonia in the right mid to lower lung. IMPRESSION/RECOMMENDATION: 1. 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 I would continue patient on Toprol-XL and lisinopril. Continue spironolactone. Will increase the patient Bumex to 2 mg IV push every 8 hours. 2. Hypertension still not well controlled. 3. History of prior CVA with right-sided residual weakness. The patient mentally also is very slow and seems confused and not answering questions 4. Diabetes mellitus: Continue monitoring the patient blood sugar. Continue antidiabetic medication. 5. Cardiomyopathy with moderately reduced LV ejection fraction. 6. Pulmonary hypertension: Suspect this is due to cardiac myopathy and patient's uncontrolled blood pressure. We will treat the patient blood pressure. Later would recommend the patient have a sleep study to make sure t hat she does not have obstructive sleep apnea. Will add hydralazine 7. CARDIOMYOPATHY: With moderately to severely reduced LV ejection fraction [08/18 echo LVEF reported as 30%]. Suspect this is due to the patient's uncontrolled hypertension and diabetes mellitus. 8. Abnormal liver function tests: This is secondary to right heart failure. At present we will discontinue the patient's atorvastatin until the right heart failure and the liver function is improved. Medications reviewed. Medical renal management plan discussed with attending provider. New medications added hence a condition making is of high complexity. 40 minutes spent on patient with more than 50% of time spent in direct patient care. Also with the patient's permission spoke to the patient son about the p atient. I have explained to the son that the patient has poor insight into her medical illnesses. Has been quite nurse educator to educate the patient about her illness.
[2019-12-19] MEDS: HYDRALAZINE HCL 10 MG TABLET PO SCH ×3 (06:23→22:43)
[2019-12-19] MEDS: BUMETANIDE INJ/PF 1 MG/4 ML SDV IV SCH ×3 (06:23→22:43)
[2019-12-19 07:29] LABS: ALKALINE PHOSPHATASE 119 U/L (38-126); ANION GAP 7 (5-19); ASPARTATE AMINO TRANSFERASE 23 U/L (14-36); BILIRUBIN,DIRECT 1.2 mg/dL (0.0-0.4); BILIRUBIN,TOTAL 1.9 mg/dL (0.2-1.3); BLOOD UREA NITROGEN 25 mg/dL (7-20); CALCIUM 8.3 mg/dL (8.4-10.2); CARBON DIOXIDE 29 mmol/L (22-30); CHLORIDE 102 mmol/L (98-107); GLUCOSE 126 mg/dL (75-110); POTASSIUM 3.7 mmol/L (3.6-5.0); TOTAL PROTEIN 7.7 g/dL (6.3-8.2)
[2019-12-19] MEDS: INSULIN LISPRO 100 UNIT/ML 3 ML VIAL SUBCUT SCH ×4 (08:30→22:40)
--- NOTE | 2019-12-19 10:53 | PDOC PROGRESS REPORT ---
Subjective Progress Note for:: 12/19/19 Subjective:: PHILLIP DORANTES is a 49 year old female with a history of CHF, CVA with right- sided paralysis, diabetes mellitus type 2, hypertension, who presents to the hospital with complaints of shortness of breath for the past several days as well as decreased swelling in her lower extremities. Patient felt very dyspneic today prompting her arrival in the ER via ambulance. Patient admits to orthopnea and PND. She states that she takes her medications regularly and states that all her medications in her plastic bag on the table. However, on reviewing her pill bottles in her plastic bag, and noticed that these are all prescriptions from her last discharge from this hospital on October 14 for which she was only given 30-day supply. This leads me to believe the patient is highly noncompliant with her medications. Patient denies any sick contacts. She lives with her son. She is immobile due to her stroke. She seems to have some expressive aphasia as well but able to communicate decently. She denies history of COPD and states that she is not on any home oxygen or breathing machines at home. Denies fever chills. Patient was noted to be very dyspneic upon initial presentation in the ER and tripoding. She was subsequently placed on BiPAP and given Lasix 80 mg IV with adequate diuresis of over 2 L immediately. Able to be weaned off BiPAP. 12/17/2019. No acute events. Patient Resting in bed in no apparent distress, alert and oriented, cooperative with physical examination, on nasal cannula in no apparent distress, denies any shortness of breath, chest pain, nausea, vomiting. 12/18/2019. No acute events overnight. Patient resting in bed with no apparent distress, on nasal cannula SPO2 WNL, alert and oriented, denies any fever, chills, nausea, vomiting, diarrhea, constipation or any urinary symptoms. 12/19/2019. No acute events overnight. Patient endorsing mild improvement of her shortness of breath and orthopnea, alert and oriented no apparent distress, denies any chest pain, chills, nausea, vomiting, diarrhea, constipation or any urinary symptoms. Reason For Visit: HEART FAILURE, SEVERE ANASARCA Physical Exam Vital Signs: Temp Pulse Resp BP Pulse Ox 98.0 F 85 16 122/102 H 93 12/19/19 08:27 12/19/19 10:40 12/19/19 10:40 12/19/19 08:27 12/19/19 10:40 Intake & Output 12/18/19 12/19/19 12/20/19 06:59 06:59 06:59 Intake Total 1062 744 Output Total 975 5775 Balance 87 -5034 Weight 105 kg 97 kg General appearance: PRESENT: obese Head exam: PRESENT: atraumatic, normocephalic Respiratory exam: PRESENT: decreased breath sounds. ABSENT: rales, rhonchi, wheezes Cardiovascular exam: PRESENT: RRR. ABSENT: diastolic murmur, rubs, systolic murmur GI/Abdominal exam: PRESENT: distended, normal bowel sounds, soft. ABSENT: guarding, mass, organolmegaly, rebound, tenderness Extremities exam: PRESENT: full ROM, pedal edema, +2 edema. ABSENT: calf tenderness, clubbing Neurological exam: PRESENT: alert, awake, oriented to person, oriented to place, CN II-XII grossly intact. ABSENT: motor sensory deficit Results Laboratory Results: 12/18/19 05:07 12/19/19 05:38 12/19/19 05:38 Sodium 138.3 Potassium 3.7 Chloride 102 Carbon Dioxide 29 Anion Gap 7 BUN 25 H Creatinine 0.87 Est GFR ( Amer) > 60 Glucose 126 H Calcium 8.3 L Magnesium 1.4 L Total Bilirubin 1.9 H AST 23 Alkaline Phosphatase 119 Total Protein 7.7 Albumin 3.0 L 12/16/19 07:13 Throat Throat Culture - Final NORMAL TAVIA 12/16/19 12/16/19 12/16/19 06:44 08:50 17:33 Troponin I Cancelled 0.024 0.020 NT-Pro-B Natriuret Pep Cancelled 8260 H Impressions: Chest X-Ray 12/16/19 06:28 IMPRESSION: Interval development of a small to moderate right pleural effusion with underlying atelectasis and/or pneumonia in the right mid to lower lung. Assessment and Plan - Diagnosis (1) Acute combined systolic (congestive) and diastolic (congestive) heart failure Is this a current diagnosis for this admission?: Yes Plan: Mild improvement of volume overload. Negative fluid balance. Patient still has 2+ pitting edema in bilateral lower extremities. Likely secondary to noncompliance with medications. History of valvular heart disease and cardiomyopathy. Good response with IV diuretics. Continue Bumex 2 mg IV 3 times daily. Strict in and out, fluid restriction, daily weights. Continue VI, beta-blockers, diuretics and Aldactone Echo 07/2019 shows EF of 30%, moderate to severe LV dysfunction, LVH, grade 2 diastolic dysfunction, moderate left atrial and right atrial dilation, moderate to severe MR, moderate AR, no . Neurology consulted. Recommendations noted. (2) Acute respiratory failure with hypoxia Is this a current diagnosis for this admission?: Yes Plan: Improving. SPO2 WNL on 2 L nasal cannula. Secondary to volume overload caused by decompensated heart failure. BiPAP PRN, supplemental O2, incentive spirometry, flutter valve, DuoNebs as needed. (3) Anasarca Is this a current diagnosis for this admission?: Yes Plan: Secondary to CHF. Mild improvement. Renal function is normal. Plan as per above. (4) Diabetes mellitus type 2 in obese Is this a current diagnosis for this admission?: Yes Plan: Controlled. Hemoglobin A1c 6.4. Takes metformin at home. Resume home meds. Diabetic diet. Sliding scale insulin, Accu-Chek, hypoglycemia protocol. Resume home meds upon discharge. (5) History of CVA (cerebrovascular accident) Is this a current diagnosis for this admission?: Yes Plan: Persistent unchanged right-sided hemiplegia. Continue aspirin and atorvastatin. Continue fall and seizure precautions. Continue PT OT. (6) Poorly-controlled hypertension Is this a current diagnosis for this admission?: Yes Plan: Improving. Continue lisinopril, Aldactone, beta-blockers and diuretics. Adjust meds as needed. Outpatient PCP and cardiology follow-up. (7) Morbid obesity with BMI of 40.0-44.9, adult Is this a current diagnosis for this admission?: Yes Plan: TSH 1.67. BMI 38.0. Diet and lifestyle modification recommended. (8) Noncompliance with medication regimen Is this a current diagnosis for this admission?: Yes Plan: Patient has recurrent hospitalization with decompensated heart failure. Mostly due to medication noncompliance. As per my conversation patient is stating that she is compliant with her medication and her son who is living with her is assisting her with her medication. I have suggested for patient to be transferred to either SNF or long-term where she can get help with her PT, medication administration and assistance with her ADLs, but patient insists that she is well taken care of at home and her son is taking care of her. Was able to talk to her son Ten and explained to him that patient would benefit from short-term SNF and he has agreed for her mother to transition to SNF. I have discussed my conversation with Ten with the patient and she seems reluctant to be transition to SNF however she stated that she will think about it. Patient will benefit from being discharged with home health and home PT.
[2019-12-19] MEDS: ENOXAPARIN SODIUM INJ 40 MG/0.4 ML DISP.SYRIN SUBCUT SCH (11:02)
[2019-12-19] MEDS: METFORMIN HCL 500 MG TABLET PO SCH ×2 (11:05→18:10)
[2019-12-19] MEDS: MAGNESIUM OXIDE 400 MG TABLET PO SCH (11:05)
[2019-12-19] MEDS: ASPIRIN 81 MG TABLET, ENT COATED PO SCH (11:05)
[2019-12-19] MEDS: LISINOPRIL 10 MG TABLET PO SCH (11:06)
[2019-12-19] MEDS: SPIRONOLACTONE 25 MG TABLET PO SCH ×2 (11:06→18:10)
[2019-12-19] MEDS: POTASSIUM CHLORIDE 10 MEQ TABLET.ER PO SCH (11:06)
[2019-12-19] MEDS: METOPROLOL SUCCINATE 50 MG TAB.SR.24H PO SCH ×2 (11:06→22:43)
[2019-12-19] MEDS: NYSTATIN TOPICAL POWDER 15 GM TP SCH (11:06)
--- NOTE | 2019-12-19 21:47 | Progress Note ---
Provider Note Provider Note: CARDIOLOGY PROGRESS NOTE by Dr. Celine Dorsey on 12/19/2019. OBJECTIVE: The patient has had a good urine output. She denies any chest pain discomfort. She states that shortness of breath is much improved. Her leg edema is also improved. She denies palpitations. There is no arrhythmias seen on the monitor. She has no PND. There is some degree of orthopnea. There is no TIA CVA symptoms. PHYSICAL EXAMINATION: The patient is moderate to severely obese. In no acute distress. Selected Entries 12/19/19 11:34 Temperature 97.8 F Temperature Oral Source Pulse Rate 85 Respiratory 20 Rate Blood Pressure 126/95 H Blood Pressure 105 Mean BP Location Left Arm BP Position Supine O2 Sat by Pulse 98 Oximetry Oxygen Delivery Room Air Method HEAD: Head is atraumatic normocephalic. EYES: Pupils are equal round regular react to light accommodation. Extraocular movements are normal. There is no clinical pallor. There is no scleral icterus. EARS: Tympanic membranes are intact. External auditory canals are clear. NOSE: There is no deviated nasal septum. There is no inflammation of the nasal mucous membrane. MOUTH: His membranes of mouth are moist tongue is moist there is no ulcers there is no bleeding from the gums. THROAT: There is no exudates in the throat. There is no redness of the oropharynx. SKIN: There is no petechia or ecchymosis. There is no skin lesions or skin rashes. NECK: Is supple. There is no JVD. Carotids are equal there is no bruit. There is no lymphadenopathy. There is no goiter. HEART: S1-S2 is heard there is no S3 gallop there is no S4 gallop. There is systolic murmur left sternal border and the apex there is no rub. ABDOMEN: Is soft obese. There is mild tenderness in the right palpation right upper quadrant. There is no rebound or guarding.. Or rigidity. There is no hepatosplenic megaly. Bowel sounds are well heard. EXTREMITIES: Femorals are deep. The femorals are diminished. There is 1+ pedal edema. There is venous stasis dermatitis. There is no cyanosis or clubbing. Capillary refill is normal. There is no DVT or cellulitis. There is no calf tenderness.. 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 With no focal deficits. Psychiatric: The patient is not agitated or anxious. The patient's 24-hour intake is 744 mL and a total of 24-hour output is 5775 mL. Labs- All tests 24 hr 12/19/19 12/19/19 12/19/19 05:38 08:22 11:36 Sodium 138.3 Potassium 3.7 Chloride 102 Carbon Dioxide 29 Anion Gap 7 BUN 25 H Creatinine 0.87 Est GFR ( Amer) > 60 Est GFR (MDRD) Non-Af > 60 Glucose 126 H POC Glucose 136 H 176 H Calcium 8.3 L Magnesium 1.4 L Total Bilirubin 1.9 H Direct Bilirubin 1.2 H Neonat Total Bilirubin Not Reportable Neonat Direct Bilirubin Not Reportable Neonat Indirect Bili Not Reportable AST 23 ALT 10 Alkaline Phosphatase 119 Total Protein 7.7 Albumin 3.0 L 12/19/19 12/19/19 18:05 21:15 Sodium Potassium Chloride Carbon Dioxide Anion Gap BUN Creatinine Est GFR ( Amer) Est GFR (MDRD) Non-Af Glucose POC Glucose 119 H 134 H Calcium Magnesium Total Bilirubin Direct Bilirubin Neonat Total Bilirubin Neonat Direct Bilirubin Neonat Indirect Bili AST ALT Alkaline Phosphatase Total Protein Albumin Chest X-Ray 12/16/19 06:28 IMPRESSION: Interval development of a small to moderate right pleural effusion with underlying atelectasis and/or pneumonia in the right mid to lower lung. IMPRESSION/RECOMMENDATION: 1. 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 I would continue patient on Toprol-XL and lisinopril. Continue spironolactone. The patient has good urine output on Bumex 2 mg IV push every 8 hours. 2. Hypertension still not well controlled. 3. History of prior CVA with right-sided residual weakness. The patient mentally also is very slow and seems confused and not answering questions 4. Diabetes mellitus: Continue monitoring the patient blood sugar. Continue antidiabetic medication. 5. Cardiomyopathy with moderately reduced LV ejection fraction. 6. Pulmonary hypertension: Suspect this is due to cardiac myopathy and patient's uncontrolled blood pressure. We will treat the patient blood pressure. Later would recommend the patient have a sleep study to make sure that she does not have obstructive sleep apnea. Will add hydralazine 7. CARDIOMYOPATHY: With moderately to severely reduced LV ejection fraction [08/18 echo LVEF reported as 30%]. Suspect this is due to the patient's uncontrolled hypertension and diabetes mellitus. 8. Abnormal liver function tests: This is secondary to right heart failure. At present we will discontinue the patient's atorvastatin until the right heart failure and the liver function is improved. We will continue to hold the atorvastatin for some more time. Note the patient 0 function tests is reverted to normal. Medications reviewed. Medical renal management plan discussed with attending provider. New medications added hence a condition making is of high complexity. 40 minutes spent on patient with more than 50% of time spent in direct patient care.
[2019-12-20] MEDS: HYDRALAZINE HCL 10 MG TABLET PO SCH ×3 (05:22→22:09)
[2019-12-20] MEDS: BUMETANIDE INJ/PF 1 MG/4 ML SDV IV SCH ×3 (05:22→22:09)
[2019-12-20] MEDS: INSULIN LISPRO 100 UNIT/ML 3 ML VIAL SUBCUT SCH ×4 (07:52→22:09)
[2019-12-20] MEDS: POTASSIUM CHLORIDE 10 MEQ TABLET.ER PO SCH (09:40)
[2019-12-20] MEDS: MAGNESIUM OXIDE 400 MG TABLET PO SCH (09:40)
[2019-12-20] MEDS: LISINOPRIL 10 MG TABLET PO SCH (09:40)
[2019-12-20] MEDS: METOPROLOL SUCCINATE 50 MG TAB.SR.24H PO SCH ×2 (09:40→22:09)
[2019-12-20] MEDS: SPIRONOLACTONE 25 MG TABLET PO SCH ×2 (09:40→17:17)
[2019-12-20] MEDS: ASPIRIN 81 MG TABLET, ENT COATED PO SCH (09:40)
[2019-12-20] MEDS: METFORMIN HCL 500 MG TABLET PO SCH ×2 (09:40→17:17)
[2019-12-20] MEDS: NYSTATIN TOPICAL POWDER 15 GM TP SCH (09:41)
[2019-12-20] MEDS: ENOXAPARIN SODIUM INJ 40 MG/0.4 ML DISP.SYRIN SUBCUT SCH (09:41)
--- NOTE | 2019-12-20 10:50 | PDOC PROGRESS REPORT ---
Subjective Progress Note for:: 12/20/19 Subjective:: PHILLIP DORANTES is a 49 year old female with a history of CHF, CVA with right- sided paralysis, diabetes mellitus type 2, hypertension, who presents to the hospital with complaints of shortness of breath for the past several days as well as decreased swelling in her lower extremities. Patient felt very dyspneic today prompting her arrival in the ER via ambulance. Patient admits to orthopnea and PND. She states that she takes her medications regularly and states that all her medications in her plastic bag on the table. However, on reviewing her pill bottles in her plastic bag, and noticed that these are all prescriptions from her last discharge from this hospital on October 14 for which she was only given 30-day supply. This leads me to believe the patient is highly noncompliant with her medications. Patient denies any sick contacts. She lives with her son. She is immobile due to her stroke. She seems to have some expressive aphasia as well but able to communicate decently. She denies history of COPD and states that she is not on any home oxygen or breathing machines at home. Denies fever chills. Patient was noted to be very dyspneic upon initial presentation in the ER and tripoding. She was subsequently placed on BiPAP and given Lasix 80 mg IV with adequate diuresis of over 2 L immediately. Able to be weaned off BiPAP. 12/17/2019. No acute events. Patient Resting in bed in no apparent distress, alert and oriented, cooperative with physical examination, on nasal cannula in no apparent distress, denies any shortness of breath, chest pain, nausea, vomiting. 12/18/2019. No acute events overnight. Patient resting in bed with no apparent distress, on nasal cannula SPO2 WNL, alert and oriented, denies any fever, chills, nausea, vomiting, diarrhea, constipation or any urinary symptoms. 12/19/2019. No acute events overnight. Patient endorsing mild improvement of her shortness of breath and orthopnea, alert and oriented no apparent distress, denies any chest pain, chills, nausea, vomiting, diarrhea, constipation or any urinary symptoms. 12/20/2019. No acute events overnight. Patient currently receiving up in distress, denies any shortness of breath or orthopnea, denies any chest pain, headache, nausea, vomiting, diarrhea, constipation or any urinary symptoms. Patient mention again today that she would like to go home and she does not want to go to rehab. Reason For Visit: HEART FAILURE, SEVERE ANASARCA Physical Exam Vital Signs: Temp Pulse Resp BP Pulse Ox 97.8 F 84 19 118/69 97 12/20/19 03:38 12/20/19 06:40 12/20/19 03:38 12/20/19 03:38 12/20/19 03:38 Intake & Output 12/19/19 12/20/19 12/21/19 06:59 06:59 06:59 Intake Total 744 1170 Output Total 5759 6125 Balance -7349 -7612 Weight 97 kg 94.8 kg General appearance: PRESENT: no acute distress, obese, well-developed, well- nourished Head exam: PRESENT: atraumatic, normocephalic Respiratory exam: PRESENT: clear to auscultation ac. ABSENT: rales, rhonchi, wheezes Cardiovascular exam: PRESENT: RRR. ABSENT: diastolic murmur, rubs, systolic murmur Pulses: PRESENT: normal dorsalis pedis pul GI/Abdominal exam: PRESENT: normal bowel sounds, soft. ABSENT: distended, guarding, mass, organolmegaly, rebound, tenderness Extremities exam: PRESENT: +2 edema Neurological exam: PRESENT: alert, awake, oriented to person, oriented to place, oriented to time, CN II-XII grossly intact. ABSENT: motor sensory deficit Results Laboratory Results: 12/18/19 05:07 12/19/19 05:38 12/16/19 12/16/19 12/16/19 06:44 08:50 17:33 Troponin I Cancelled 0.024 0.020 NT-Pro-B Natriuret Pep Cancelled 8260 H Impressions: Chest X-Ray 12/16/19 06:28 IMPRESSION: Interval development of a small to moderate right pleural effusion with underlying atelectasis and/or pneumonia in the right mid to lower lung. Assessment and Plan - Diagnosis (1) Acute combined systolic (congestive) and diastolic (congestive) heart failure Is this a current diagnosis for this admission?: Yes Plan: Moderate improvement of volume overload. Weight is 94.8 down from 107 kg on admission. Fluid balance -4955. Patient still has 2+ pitting edema in bilateral lower extremities. Likely secondary to noncompliance with medications. History of valvular heart disease and cardiomyopathy. Good response with IV diuretics. Continue Bumex 2 mg IV 3 times daily. Strict in and out, fluid restriction, daily weights. Continue VI, beta-blockers, diuretics and Aldactone Echo 07/2019 shows EF of 30%, moderate to severe LV dysfunction, LVH, grade 2 diastolic dysfunction, moderate left atrial and right atrial dilation, moderate to severe MR, moderate AR, no . Cardiology consulted. Recommendations noted. (2) Acute respiratory failure with hypoxia Is this a current diagnosis for this admission?: Yes Plan: Moderate improvement. SPO2 WNL on RA. Secondary to volume overload caused by decompensated heart failure. BiPAP PRN, supplemental O2, incentive spirometry, flutter valve, DuoNebs as needed. (3) Anasarca Is this a current diagnosis for this admission?: Yes Plan: Moderate improvement. Secondary to CHF. Renal function is normal. Plan as per above. (4) Diabetes mellitus type 2 in obese Is this a current diagnosis for this admission?: Yes Plan: Controlled. Hemoglobin A1c 6.4. Takes metformin at home. Resume home meds. Diabetic diet. Sliding scale insulin, Accu-Chek, hypoglycemia protocol. Resume home meds upon discharge. (5) History of CVA (cerebrovascular accident) Is this a current diagnosis for this admission?: Yes Plan: Persistent unchanged right-sided hemiplegia. Continue aspirin and atorvastatin. Continue fall and seizure precautions. Continue PT OT. (6) Poorly-controlled hypertension Is this a current diagnosis for this admission?: Yes Plan: Improving. Continue lisinopril, Aldactone, beta-blockers and diuretics. Adjust meds as needed. Outpatient PCP and cardiology follow-up. (7) Morbid obesity with BMI of 40.0-44.9, adult Is this a current diagnosis for this admission?: Yes Plan: TSH 1.67. BMI 38.0. Diet and lifestyle modification recommended. (8) Noncompliance with medication regimen Is this a current diagnosis for this admission?: Yes Plan: Patient has recurrent hospitalization with decompensated heart failure. Mostly due to medication noncompliance. As per my conversation patient is stating that she is compliant with her medication and her son who is living with her is assisting her with her medication. I have suggested for patient to be transferred to either SNF or long term where she can get help with her PT, medication administration and assistance with her ADLs, but patient insists that she is well taken care of at home and her son is taking care of her. Was able to talk to her son Ten and explained to him that patient would benefit from short-term SNF and he has agreed for her mother to transition to SNF. I have discussed my conversation with Ten with the patient and she seems reluctant to be transition to SNF however she stated that she will think about it. Patient will benefit from being discharged with home health and home PT.
--- NOTE | 2019-12-20 22:12 | Progress Note ---
Provider Note Provider Note: CARDIOLOGY PROGRESS NOTE by Dr. Celine Dorsey on 12/20/2019. SUBJECTIVE: The patient states she is feeling a little better. There is no chest pain or discomfort. There is no shortness of breath there is no PND orthopnea. The patient's leg edema is much improved. There is no atrioventricular arrhythmias seen on the monitor. PHYSICAL EXAMINATION: The patient is moderately obese. In no acute distress. Selected Entries 12/20/19 15:42 Temperature 97.8 F Temperature Oral Source Pulse Rate 87 Respiratory 18 Rate Blood Pressure 108/63 Blood Pressure 78 Mean BP Location Left Arm BP Position Supine O2 Sat by Pulse 97 Oximetry Oxygen Delivery Room Air Method HEAD: Head is atraumatic normocephalic. EYES: Pupils are equal round regular react to light accommodation. Extraocular movements are normal. There is no clinical pallor. There is no scleral icterus. EARS: Tympanic membranes are intact. External auditory canals are clear. NOSE: There is no deviated nasal septum. There is no inflammation of the nasal mucous membrane. MOUTH: His membranes of mouth are moist tongue is moist there is no ulcers there is no bleeding from the gums. THROAT: There is no exudates in the throat. There is no redness of the oropharynx. SKIN: There is no petechia or ecchymosis. There is no skin lesions or skin rashes. NECK: Is supple. There is no JVD. Carotids are equal there is no bruit. There is no lymphadenopathy. There is no goiter. HEART: S1-S2 is heard there is no S3 gallop there is no S4 gallop. There is systolic murmur left sternal border and the apex there is no rub. ABDOMEN: Is soft obese. There is mild tenderness in the right palpation right upper quadrant. There is no rebound or guarding.. Or rigidity. There is no hepatosplenic megaly. Bowel sounds are well heard. EXTREMITIES: Femorals are deep. The femorals are diminished. There is 1+ pedal edema. There is venous stasis dermatitis. There is no cyanosis or clubbing. Capillary refill is normal. There is no DVT or cellulitis. There is no calf tenderness.. 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 With no focal deficits. Psychiatric: The patient is not agitated or anxious. The patient's 24-hour intake is 1170 mL and a total of 24-hour output is 6125 mL. Labs- All tests 24 hr 12/20/19 12/20/19 12/20/19 07:41 11:38 15:42 POC Glucose 114 H 146 H 150 H 12/20/19 21:15 POC Glucose 166 H Chest X-Ray 12/16/19 06:28 IMPRESSION: Interval development of a small to moderate right pleural effusion with underlying atelectasis and/or pneumonia in the right mid to lower lung. IMPRESSION/RECOMMENDATION: 1. 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 I would continue patient on Toprol-XL and lisinopril. Continue spironolactone. The patient has good urine output on Bumex 2 mg IV push every 8 hours. 2. Hypertension still not well controlled. 3. History of prior CVA with right-sided residual weakness. The patient mentally also is very slow and seems confused and not answering questions 4. Diabetes mellitus: Continue monitoring the patient blood sugar. Continue antidiabetic medication. 5. Cardiomyopathy with moderately reduced LV ejection fraction. 6. Pulmonary hypertension: Suspect this is due to cardiac myopathy and patient's uncontrolled blood pressure. We will treat the patient blood pressure. Later would recommend the patient have a sleep study to make sure that she does not have obstructive sleep apnea. Will add hydralazine 7. CARDIOMYOPATHY: With moderately to severely reduced LV ejection fraction [08/18 echo LVEF reported as 30%]. Suspect this is due to the patient's uncontrolled hypertension and diabetes mellitus. 8. Abnormal liver function tests: This is secondary to right heart failure. At present we will discontinue the patient's atorvastatin until the right heart failure and the liver function is improved. We will continue to hold the atorvastatin for some more time. Note the patient 0 function tests is reverted to normal. Medications reviewed. Medical renal management plan discussed with attending provider. New medications added hence a condition making is of high complexity. 40 minutes spent on patient with more than 50% of time spent in direct patient care.
[2019-12-21] MEDS: HYDRALAZINE HCL 10 MG TABLET PO SCH ×3 (05:47→21:38)
[2019-12-21] MEDS: BUMETANIDE INJ/PF 1 MG/4 ML SDV IV SCH ×3 (05:47→21:38)
[2019-12-21] MEDS: INSULIN LISPRO 100 UNIT/ML 3 ML VIAL SUBCUT SCH ×4 (08:25→21:39)
[2019-12-21] MEDS: ASPIRIN 81 MG TABLET, ENT COATED PO SCH (09:15)
[2019-12-21] MEDS: LISINOPRIL 10 MG TABLET PO SCH (09:15)
[2019-12-21] MEDS: METOPROLOL SUCCINATE 50 MG TAB.SR.24H PO SCH ×2 (09:15→21:38)
[2019-12-21] MEDS: SPIRONOLACTONE 25 MG TABLET PO SCH ×2 (09:16→17:02)
[2019-12-21] MEDS: METFORMIN HCL 500 MG TABLET PO SCH ×2 (09:16→17:03)
[2019-12-21] MEDS: MAGNESIUM OXIDE 400 MG TABLET PO SCH (09:16)
[2019-12-21] MEDS: ENOXAPARIN SODIUM INJ 40 MG/0.4 ML DISP.SYRIN SUBCUT SCH (09:16)
[2019-12-21] MEDS: POTASSIUM CHLORIDE 10 MEQ TABLET.ER PO SCH (09:16)
[2019-12-21] MEDS: NYSTATIN TOPICAL POWDER 15 GM TP SCH (09:16)
--- NOTE | 2019-12-21 10:10 | PDOC PROGRESS REPORT ---
Subjective Progress Note for:: 12/21/19 Subjective:: PHILLIP DORANTES is a 49 year old female with a history of CHF, CVA with right- sided paralysis, diabetes mellitus type 2, hypertension, who presents to the hospital with complaints of shortness of breath for the past several days as well as decreased swelling in her lower extremities. Patient felt very dyspneic today prompting her arrival in the ER via ambulance. Patient admits to orthopnea and PND. She states that she takes her medications regularly and states that all her medications in her plastic bag on the table. However, on reviewing her pill bottles in her plastic bag, and noticed that these are all prescriptions from her last discharge from this hospital on October 14 for which she was only given 30-day supply. This leads me to believe the patient is highly noncompliant with her medications. Patient denies any sick contacts. She lives with her son. She is immobile due to her stroke. She seems to have some expressive aphasia as well but able to communicate decently. She denies history of COPD and states that she is not on any home oxygen or breathing machines at home. Denies fever chills. Patient was noted to be very dyspneic upon initial presentation in the ER and tripoding. She was subsequently placed on BiPAP and given Lasix 80 mg IV with adequate diuresis of over 2 L immediately. Able to be weaned off BiPAP. 12/17/2019. No acute events. Patient Resting in bed in no apparent distress, alert and oriented, cooperative with physical examination, on nasal cannula in no apparent distress, denies any shortness of breath, chest pain, nausea, vomiting. 12/18/2019. No acute events overnight. Patient resting in bed with no apparent distress, on nasal cannula SPO2 WNL, alert and oriented, denies any fever, chills, nausea, vomiting, diarrhea, constipation or any urinary symptoms. 12/19/2019. No acute events overnight. Patient endorsing mild improvement of her shortness of breath and orthopnea, alert and oriented no apparent distress, denies any chest pain, chills, nausea, vomiting, diarrhea, constipation or any urinary symptoms. 12/20/2019. No acute events overnight. Patient currently receiving up in distress, denies any shortness of breath or orthopnea, denies any chest pain, headache, nausea, vomiting, diarrhea, constipation or any urinary symptoms. Patient mention again today that she would like to go home and she does not want to go to rehab. 12/21/2019. No acute events overnight. Resting in bed comfortably no apparent distress, enjoying her breakfast, denies any nausea vomiting, diarrhea, consti pation, shortness of breath or orthopnea. Patient again mentions that she wants to go home does not want to be sent to rehab. I have also mentioned this to discharge planning unfortunately patient did not qualify for rehab. Reason For Visit: HEART FAILURE, SEVERE ANASARCA Physical Exam Vital Signs: Temp Pulse Resp BP Pulse Ox 98.5 F 81 22 H 108/59 L 96 12/21/19 03:08 12/21/19 06:40 12/21/19 03:08 12/21/19 03:08 12/21/19 03:08 Intake & Output 12/20/19 12/21/19 12/22/19 06:59 06:59 06:59 Intake Total 1170 626 Output Total 6128 5525 Balance -4857 -3053 Weight 94.8 kg 91.3 kg General appearance: PRESENT: no acute distress, obese, well-developed, well- nourished Head exam: PRESENT: atraumatic, normocephalic Respiratory exam: PRESENT: clear to auscultation ac. ABSENT: rales, rhonchi, wheezes Cardiovascular exam: PRESENT: RRR. ABSENT: diastolic murmur, rubs, systolic murmur GI/Abdominal exam: PRESENT: normal bowel sounds, soft. ABSENT: distended, guarding, mass, organolmegaly, rebound, tenderness Extremities exam: PRESENT: +2 edema Neurological exam: PRESENT: alert, awake, oriented to person, oriented to place, oriented to time, CN II-XII grossly intact. ABSENT: motor sensory deficit Results Laboratory Results: 12/18/19 05:07 12/19/19 05:38 12/16/19 08:50 Blood Blood Culture - Final NO GROWTH IN 5 DAYS 12/16/19 06:44 Blood Blood Culture - Final NO GROWTH IN 5 DAYS 12/16/19 12/16/19 12/16/19 06:44 08:50 17:33 Troponin I Cancelled 0.024 0.020 NT-Pro-B Natriuret Pep Cancelled 8260 H Impressions: Chest X-Ray 12/16/19 06:28 IMPRESSION: Interval development of a small to moderate right pleural effusion with underlying atelectasis and/or pneumonia in the right mid to lower lung. Assessment and Plan - Diagnosis (1) Acute combined systolic (congestive) and diastolic (congestive) heart failure Is this a current diagnosis for this admission?: Yes Plan: Moderate improvement of volume overload. Weight is 91.3 down from 107 kg on admission. Fluid balance -4899. Patient still has 2+ pitting edema in bilateral lower extremities. Likely secondary to noncompliance with medications. History of valvular heart disease and cardiomyopathy. Good response with IV diuretics. Continue Bumex 2 mg IV 3 times daily. Strict in and out, fluid restriction, daily weights. Continue VI, beta-blockers, diuretics and Aldactone Echo 07/2019 shows EF of 30%, moderate to severe LV dysfunction, LVH, grade 2 diastolic dysfunction, moderate left atrial and right atrial dilation, moderate to severe MR, moderate AR, no . Cardiology consulted. Recommendations noted. (2) Acute respiratory failure with hypoxia Is this a current diagnosis for this admission?: Yes Plan: Moderate improvement. SPO2 WNL on RA. Secondary to volume overload caused by decompensated heart failure. BiPAP PRN, supplemental O2, incentive spirometry, flutter valve, DuoNebs as needed. (3) Anasarca Is this a current diagnosis for this admission?: Yes Plan: Moderate improvement. Secondary to CHF. Renal function is normal. Plan as per above. (4) Diabetes mellitus type 2 in obese Is this a current diagnosis for this admission?: Yes Plan: Controlled. Hemoglobin A1c 6.4. Takes metformin at home. Resume home meds. Diabetic diet. Sliding scale insulin, Accu-Chek, hypoglycemia protocol. Resume home meds upon discharge. (5) History of CVA (cerebrovascular accident) Is this a current diagnosis for this admission?: Yes Plan: Persistent unchanged right-sided hemiplegia. Continue aspirin and atorvastatin. Continue fall and seizure precautions. Continue PT OT. Patient refuses to be transitioned to SNF. Prefers going home. Stating that his son takes good care of her. (6) Poorly-controlled hypertension Is this a current diagnosis for this admission?: Yes Plan: Improving. Continue lisinopril, Aldactone, beta-blockers and diuretics. Adjust meds as needed. Outpatient PCP and cardiology follow-up. (7) Morbid obesity with BMI of 40.0-44.9, adult Is this a current diagnosis for this admission?: Yes Plan: TSH 1.67. BMI 38.0. Diet and lifestyle modification recommended. (8) Noncompliance with medication regimen Is this a current diagnosis for this admission?: Yes Plan: Patient has recurrent hospitalization with decompensated heart failure. Mostly due to medication noncompliance. As per my conversation patient is s tating that she is compliant with her medication and her son who is living with her is assisting her with her medication. I have suggested for patient to be transferred to either SNF or [facility]pc where she can get help with her PT, medication administration and assistance with her ADLs, but patient insists that she is well taken care of at home and her son is taking care of her. Was able to talk to her son Ten and explained to him that patient would benefit from short-term SNF and he has agreed for her mother to transition to SNF. I have discussed my conversation with Ten with the patient and she seems reluctant to be transition to SNF however she stated that she will think about it. Patient will benefit from being discharged with home health and home PT.
--- NOTE | 2019-12-21 11:28 | Progress Note ---
Provider Note Provider Note: CARDIOLOGY PROGRESS NOTE by Dr. Celine Dorsey on 12/21/2019. SUBJECTIVE: The patient is slightly sleepy but denies any chest pain or discomfort. There is no shortness of breath there is no PND orthopnea. Her leg edema has improved. There is no arrhythmias seen on the monitor. PHYSICAL EXAMINATION: The patient is moderately obese. In no acute distress. Selected Entries 12/21/19 03:08 Temperature 98.5 F Temperature Axillary Source Pulse Rate 79 Respiratory 22 H Rate Blood Pressure 108/59 L Blood Pressure 75 Mean BP Location Right Arm BP Position Supine O2 Sat by Pulse 96 Oximetry Oxygen Delivery Room Air Method HEAD: Head is atraumatic normocephalic. EYES: Pupils are equal round regular react to light accommodation. Extraocular movements are normal. There is no clinical pallor. There is no scleral icterus. EARS: Tympanic membranes are intact. External auditory canals are clear. NOSE: There is no deviated nasal septum. There is no inflammation of the nasal mucous membrane. MOUTH: His membranes of mouth are moist tongue is moist there is no ulcers there is no bleeding from the gums. THROAT: There is no exudates in the throat. There is no redness of the oropharynx. SKIN: There is no petechia or ecchymosis. There is no skin lesions or skin rashes. NECK: Is supple. There is no JVD. Carotids are equal there is no bruit. There is no lymphadenopathy. There is no goiter. HEART: S1-S2 is heard there is no S3 gallop there is no S4 gallop. There is systolic murmur left sternal border and the apex there is no rub. ABDOMEN: Is soft obese. There is mild tenderness in the right palpation right upper quadrant. There is no rebound or guarding.. Or rigidity. There is no hepatosplenic megaly. Bowel sounds are well heard. EXTREMITIES: Femorals are deep. The femorals are diminished. There is 1+ pedal edema. There is venous stasis dermatitis. There is no cyanosis or clubbing. Capillary refill is normal. There is no DVT or cellulitis. There is no calf tenderness.. OFFICE COORDINATOR: The patient is conscious awake alert but seems to be confused and not able to give a good history, she has mild right-sided weakness. With no focal deficits. Psychiatric: The patient is not agitated or anxious. The patient's 24-hour intake is 626 mL and a total of 24-hour output is 5525 mL. Labs- All tests 24 hr 12/20/19 12/20/19 12/20/19 11:38 15:42 21:15 POC Glucose 146 H 150 H 166 H 12/21/19 08:05 POC Glucose 92 Chest X-Ray 12/16/19 06:28 IMPRESSION: Interval development of a small to moderate right pleural effusion with underlying atelectasis and/or pneumonia in the right mid to lower lung. IMPRESSION/RECOMMENDATION: 1. 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 I would continue patient on Toprol-XL and lisinopril. Continue spironolactone. The patient has good urine output on Bumex 2 mg IV push every 8 hours. 2. Hypertension still not well controlled. 3. History of prior CVA with right-sided residual weakness. The patient mentally also is very slow and seems confused and not answering questions 4. Diabetes mellitus: Continue monitoring the patient blood sugar. Continue antidiabetic medication. 5. Cardiomyopathy with moderately reduced LV ejection fraction. 6. Pulmonary hypertension: Suspect this is due to cardiac myopathy and patient's uncontrolled blood pressure. We will treat the patient blood pressure. Later would recommend the patient have a sleep study to make sure that she does not have obstructive sleep apnea. Will add hydralazine 7. CARDIOMYOPATHY: With moderately to severely reduced LV ejection fraction [08/18 echo LVEF reported as 30%]. Suspect this is due to the patient's unc ontrolled hypertension and diabetes mellitus. 8. Abnormal liver function tests: This is secondary to right heart failure. At present we will discontinue the patient's atorvastatin until the right heart failure and the liver function is improved. We will continue to hold the atorvastatin for some more time. Note the patient 0 function tests is reverted to normal. Medications reviewed. Medical regimen and medical management plan discussed with attending provider. Medical decision making is of moderate complexity. 40 minutes spent on patient with more than 50% of time spent in direct patient care.
[2019-12-22] MEDS: TRAMADOL HCL 50 MG TABLET PO PRN ×2 (00:06→09:41)
[2019-12-22] MEDS: BUMETANIDE INJ/PF 1 MG/4 ML SDV IV SCH ×3 (05:10→21:17)
[2019-12-22] MEDS: HYDRALAZINE HCL 10 MG TABLET PO SCH ×3 (05:10→21:18)
[2019-12-22] MEDS: INSULIN LISPRO 100 UNIT/ML 3 ML VIAL SUBCUT SCH ×4 (08:09→21:13)
[2019-12-22] MEDS: MAGNESIUM OXIDE 400 MG TABLET PO SCH (09:40)
[2019-12-22] MEDS: ASPIRIN 81 MG TABLET, ENT COATED PO SCH (09:41)
[2019-12-22] MEDS: METOPROLOL SUCCINATE 50 MG TAB.SR.24H PO SCH ×2 (09:41→21:18)
[2019-12-22] MEDS: POTASSIUM CHLORIDE 10 MEQ TABLET.ER PO SCH (09:41)
[2019-12-22] MEDS: LISINOPRIL 10 MG TABLET PO SCH (09:41)
[2019-12-22] MEDS: METFORMIN HCL 500 MG TABLET PO SCH ×2 (09:41→17:20)
[2019-12-22] MEDS: ENOXAPARIN SODIUM INJ 40 MG/0.4 ML DISP.SYRIN SUBCUT SCH (09:41)
[2019-12-22] MEDS: NYSTATIN TOPICAL POWDER 15 GM TP SCH (09:41)
[2019-12-22] MEDS: SPIRONOLACTONE 25 MG TABLET PO SCH ×2 (09:41→17:20)
--- NOTE | 2019-12-22 12:11 | PDOC PROGRESS REPORT ---
Subjective Progress Note for:: 12/22/19 Subjective:: PHILLIP DORANTES is a 49 year old female with a history of CHF, CVA with right- sided paralysis, diabetes mellitus type 2, hypertension, who presents to the hospital with complaints of shortness of breath for the past several days as well as decreased swelling in her lower extremities. Patient felt very dyspneic today prompting her arrival in the ER via ambulance. Patient admits to orthopnea and PND. She states that she takes her medications regularly and states that all her medications in her plastic bag on the table. However, on reviewing her pill bottles in her plastic bag, and noticed that these are all prescriptions from her last discharge from this hospital on October 14 for which she was only given 30-day supply. This leads me to believe the patient is highly noncompliant with her medications. Patient denies any sick contacts. She lives with her son. She is immobile due to her stroke. She seems to have some expressive aphasia as well but able to communicate decently. She denies history of COPD and states that she is not on any home oxygen or breathing machines at home. Denies fever chills. Patient was noted to be very dyspneic upon initial presentation in the ER and tripoding. She was subsequently placed on BiPAP and given Lasix 80 mg IV with adequate diuresis of over 2 L immediately. Able to be weaned off BiPAP. 12/17/2019. No acute events. Patient Resting in bed in no apparent distress, alert and oriented, cooperative with physical examination, on nasal cannula in no apparent distress, denies any shortness of breath, chest pain, nausea, vomiting. 12/18/2019. No acute events overnight. Patient resting in bed with no apparent distress, on nasal cannula SPO2 WNL, alert and oriented, denies any fever, chills, nausea, vomiting, diarrhea, constipation or any urinary symptoms. 12/19/2019. No acute events overnight. Patient endorsing mild improvement of her shortness of breath and orthopnea, alert and oriented no apparent distress, denies any chest pain, chills, nausea, vomiting, diarrhea, constipation or any urinary symptoms. 12/20/2019. No acute events overnight. Patient currently receiving up in distress, denies any shortness of breath or orthopnea, denies any chest pain, headache, nausea, vomiting, diarrhea, constipation or any urinary symptoms. Patient mention again today that she would like to go home and she does not want to go to rehab. 12/21/2019. No acute events overnight. Resting in bed comfortably no apparent distress, enjoying her breakfast, denies any nausea vomiting, diarrhea, consti pation, shortness of breath or orthopnea. Patient again mentions that she wants to go home does not want to be sent to rehab. I have also mentioned this to discharge planning unfortunately patient did not qualify for rehab. 12/22/2019. No acute events overnight. Patient comfortably 7 apparent distress, enjoying her breakfast, denies any nausea, vomiting, shortness of breath, diarrhea, constipation. Denies any chest pain. P.o. tolerant. Reason For Visit: HEART FAILURE, SEVERE ANASARCA Physical Exam Vital Signs: Temp Pulse Resp BP Pulse Ox 97.8 F 76 17 131/85 H 95 12/22/19 08:00 12/22/19 08:00 12/22/19 08:00 12/22/19 08:00 12/22/19 08:00 Intake & Output 12/21/19 12/22/19 12/23/19 06:59 06:59 06:59 Intake Total 626 1065 Output Total 5537 8185 Balance -0494 -7891 Weight 91.3 kg 85.7 kg General appearance: PRESENT: no acute distress, obese, well-developed, well- nourished Head exam: PRESENT: atraumatic, normocephalic Respiratory exam: PRESENT: clear to auscultation ac. ABSENT: rales, rhonchi, wheezes Cardiovascular exam: PRESENT: RRR. ABSENT: diastolic murmur, rubs, systolic murmur GI/Abdominal exam: PRESENT: normal bowel sounds, soft. ABSENT: distended, guarding, mass, organolmegaly, rebound, tenderness Extremities exam: PRESENT: +2 edema Neurological exam: PRESENT: alert, awake, oriented to person, oriented to place, oriented to time, oriented to situation, CN II-XII grossly intact. ABSENT: motor sensory deficit Skin exam: PRESENT: dry, intact, warm. ABSENT: cyanosis, rash Results Laboratory Results: 12/18/19 05:07 12/19/19 05:38 12/16/19 08:50 Blood Blood Culture - Final NO GROWTH IN 5 DAYS 12/16/19 12/16/19 12/16/19 06:44 08:50 17:33 Troponin I Cancelled 0.024 0.020 NT-Pro-B Natriuret Pep Cancelled 8260 H Impressions: Chest X-Ray 12/16/19 06:28 IMPRESSION: Interval development of a small to moderate right pleural effusion with underlying atelectasis and/or pneumonia in the right mid to lower lung. Assessment and Plan - Diagnosis (1) Acute combined systolic (congestive) and diastolic (congestive) heart failure Is this a current diagnosis for this admission?: Yes Plan: Moderate improvement of volume overload. Weight is 85.7 from 107 kg on admission. Fluid balance --2815. Patient still has 2+ pitting edema in bilateral lower extremities. Likely secondary to noncompliance with medications. History of valvular heart disease and cardiomyopathy. Good response with IV diuretics. Continue Bumex 2 mg IV 3 times daily. Strict in and out, fluid restriction, daily weights. Continue VI, beta-blockers, diuretics and Aldactone Echo 07/2019 shows EF of 30%, moderate to severe LV dysfunction, LVH, grade 2 diastolic dysfunction, moderate left atrial and right atrial dilation, moderate to severe MR, moderate AR, no . Cardiology consulted. Recommendations noted. (2) Acute respiratory failure with hypoxia Is this a current diagnosis for this admission?: Yes Plan: Moderate improvement. SPO2 WNL on RA. Secondary to volume overload caused by decompensated heart failure. BiPAP PRN, supplemental O2, incentive spirometry, flutter valve, DuoNebs as needed. (3) Anasarca Is this a current diagnosis for this admission?: Yes Plan: Moderate improvement. Secondary to CHF. Renal function is normal. Plan as per above. (4) Diabetes mellitus type 2 in obese Is this a current diagnosis for this admission?: Yes Plan: Controlled. Hemoglobin A1c 6.4. Takes metformin at home. Resume home meds. Diabetic diet. Sliding scale insulin, Accu-Chek, hypogly cemia protocol. Resume home meds upon discharge. (5) History of CVA (cerebrovascular accident) Is this a current diagnosis for this admission?: Yes Plan: Persistent unchanged right-sided hemiplegia. Continue aspirin and atorvastatin. Continue fall and seizure precautions. Continue PT OT. Patient refuses to be transitioned to SNF. Prefers going home. Stating that his son takes good care of her. (6) Poorly-controlled hypertension Is this a current diagnosis for this admission?: Yes Plan: Improving. Continue lisinopril, Aldactone, beta-blockers and diuretics. Adjust meds as needed. Outpatient PCP and cardiology follow-up. (7) Morbid obesity with BMI of 40.0-44.9, adult Is this a current diagnosis for this admission?: Yes Plan: TSH 1.67. BMI 38.0. Diet and lifestyle modification recommended. (8) Noncompliance with medication regimen Is this a current diagnosis for this admission?: Yes Plan: Patient has recurrent hospitalization with decompensated heart failure. Mostly due to medication noncompliance. As per my conversation patient is stating that she is compliant with her medication and her son who is living with her is assisting her with her medication. I have suggested for patient to be transferred to either SNF or [place] [facility] where she can get help with her PT, medication administration and assistance with her ADLs, but patient insists that she is well taken care of at home and her son is taking care of her. Was able to talk to her son Ten and explained to him that patient would benefit from short-term SNF and he has agreed for her mother to transition to SNF. I have discussed my conversation with Ten with the patient and she seems reluctant to be transition to SNF however she stated that she will think about it. Patient will benefit from being discharged with home health and home PT.
[2019-12-22] MEDS ORDERED: ONDANSETRON HCL INJ/PF 4 MG/2 ML SDV IV PRN (15:00)
[2019-12-23] MEDS: BUMETANIDE INJ/PF 1 MG/4 ML SDV IV SCH ×3 (05:35→10:25)
[2019-12-23] MEDS: HYDRALAZINE HCL 10 MG TABLET PO SCH (05:35)
[2019-12-23 05:58] LABS: ANION GAP 8 (5-19); BLOOD UREA NITROGEN 28 mg/dL (7-20); CALCIUM 8.6 mg/dL (8.4-10.2); CARBON DIOXIDE 32 mmol/L (22-30); CHLORIDE 96 mmol/L (98-107); GLUCOSE 101 mg/dL (75-110); POTASSIUM 3.5 mmol/L (3.6-5.0)
[2019-12-23] MEDS ORDERED: POTASSIUM CHLORIDE 10 MEQ TABLET.ER PO ONE ×2 (07:30→11:00)
[2019-12-23] MEDS: INSULIN LISPRO 100 UNIT/ML 3 ML VIAL SUBCUT SCH ×4 (10:14→21:43)
[2019-12-23] MEDS: ASPIRIN 81 MG TABLET, ENT COATED PO SCH (10:21)
[2019-12-23] MEDS: SPIRONOLACTONE 25 MG TABLET PO SCH (10:22)
[2019-12-23] MEDS: MAGNESIUM OXIDE 400 MG TABLET PO SCH (10:22)
[2019-12-23] MEDS: METFORMIN HCL 500 MG TABLET PO SCH ×2 (10:22→17:33)
[2019-12-23] MEDS: NYSTATIN TOPICAL POWDER 15 GM TP SCH (10:22)
[2019-12-23] MEDS: METOPROLOL SUCCINATE 50 MG TAB.SR.24H PO SCH (10:22)
[2019-12-23] MEDS: POTASSIUM CHLORIDE 10 MEQ TABLET.ER PO SCH (10:22)
[2019-12-23] MEDS: LISINOPRIL 10 MG TABLET PO SCH (10:22)
[2019-12-23] MEDS: ENOXAPARIN SODIUM INJ 40 MG/0.4 ML DISP.SYRIN SUBCUT SCH (10:59)
[2019-12-23] MEDS: TORSEMIDE 20 MG TABLET PO SCH (10:59)
--- NOTE | 2019-12-23 12:45 | PDOC PROGRESS REPORT ---
Subjective Progress Note for:: 12/23/19 Subjective:: PHILLIP DORANTES is a 49 year old female with a history of CHF, CVA with right- sided paralysis, diabetes mellitus type 2, hypertension, who presents to the hospital with complaints of shortness of breath for the past several days as well as decreased swelling in her lower extremities. Patient felt very dyspneic today prompting her arrival in the ER via ambulance. Patient admits to orthopnea and PND. She states that she takes her medications regularly and states that all her medications in her plastic bag on the table. However, on reviewing her pill bottles in her plastic bag, and noticed that these are all prescriptions from her last discharge from this hospital on October 14 for which she was only given 30-day supply. This leads me to believe the patient is highly noncompliant with her medications. Patient denies any sick contacts. She lives with her son. She is immobile due to her stroke. She seems to have some expressive aphasia as well but able to communicate decently. She denies history of COPD and states that she is not on any home oxygen or breathing machines at home. Denies fever chills. Patient was noted to be very dyspneic upon initial presentation in the ER and tripoding. She was subsequently placed on BiPAP and given Lasix 80 mg IV with adequate diuresis of over 2 L immediately. Able to be weaned off BiPAP. 12/17/2019. No acute events. Patient Resting in bed in no apparent distress, alert and oriented, cooperative with physical examination, on nasal cannula in no apparent distress, denies any shortness of breath, chest pain, nausea, vomiting. 12/18/2019. No acute events overnight. Patient resting in bed with no apparent distress, on nasal cannula SPO2 WNL, alert and oriented, denies any fever, chills, nausea, vomiting, diarrhea, constipation or any urinary symptoms. 12/19/2019. No acute events overnight. Patient endorsing mild improvement of her shortness of breath and orthopnea, alert and oriented no apparent distress, denies any chest pain, chills, nausea, vomiting, diarrhea, constipation or any urinary symptoms. 12/20/2019. No acute events overnight. Patient currently receiving up in distress, denies any shortness of breath or orthopnea, denies any chest pain, headache, nausea, vomiting, diarrhea, constipation or any urinary symptoms. Patient mention again today that she would like to go home and she does not want to go to rehab. 12/21/2019. No acute events overnight. Resting in bed comfortably no apparent distress, enjoying her breakfast, denies any nausea vomiting, diarrhea, consti pation, shortness of breath or orthopnea. Patient again mentions that she wants to go home does not want to be sent to rehab. I have also mentioned this to discharge planning unfortunately patient did not qualify for rehab. 12/22/2019. No acute events overnight. Patient comfortably 7 apparent distress, enjoying her breakfast, denies any nausea, vomiting, shortness of breath, diarrhea, constipation. Denies any chest pain. P.o. tolerant. 12/23/2019. No acute events overnight. Comfortable resting in bed no apparent distress, enjoying her breakfast, and denies any nausea, shortness of breath, chest pain, diarrhea, constipation or any urinary symptoms. Patient again adamantly refusing to be transferred to rehab. Patient would like to go home. Patient also reporting drinking excessive amount of water when she is at home. Patient advised to restrict her fluid intake when she goes home. Patient voiced understanding. Reason For Visit: HEART FAILURE, SEVERE ANASARCA Physical Exam Vital Signs: Temp Pulse Resp BP Pulse Ox 97.4 F 75 18 151/94 H 94 12/23/19 08:12 12/23/19 08:12 12/23/19 08:12 12/23/19 08:12 12/23/19 08:12 Intake & Output 12/22/19 12/23/19 12/24/19 06:59 06:59 06:59 Intake Total 1065 666 Output Total 3880 8130 Balance -3045 -1294 Weight 85.7 kg 83 kg General appearance: PRESENT: no acute distress, obese, well-developed, well- nourished Head exam: PRESENT: atraumatic, normocephalic Respiratory exam: PRESENT: clear to auscultation ac. ABSENT: rales, rhonchi, wheezes Cardiovascular exam: PRESENT: RRR. ABSENT: diastolic murmur, rubs, systolic murmur GI/Abdominal exam: PRESENT: normal bowel sounds, soft. ABSENT: distended, guarding, mass, organolmegaly, rebound, tenderness Extremities exam: PRESENT: +1 edema Neurological exam: PRESENT: alert, awake, oriented to person, oriented to place, oriented to time, oriented to situation, CN II-XII grossly intact, motor sensory deficit - Right upper lower extremity strength 0/5. Results Laboratory Results: 12/18/19 05:07 12/23/19 05:05 12/23/19 05:05 Sodium 136.3 L Potassium 3.5 L Chloride 96 L Carbon Dioxide 32 H Anion Gap 8 BUN 28 H Creatinine 0.92 Est GFR ( Amer) > 60 Glucose 101 Calcium 8.6 12/16/19 12/16/19 12/16/19 06:44 08:50 17:33 Troponin I Cancelled 0.024 0.020 NT-Pro-B Natriuret Pep Cancelled 8260 H Impressions: Chest X-Ray 12/16/19 06:28 IMPRESSION: Interval development of a small to moderate right pleural effusion with underlying atelectasis and/or pneumonia in the right mid to lower lung. Assessment and Plan - Diagnosis (1) Acute combined systolic (congestive) and diastolic (congestive) heart failure Is this a current diagnosis for this admission?: Yes Plan: Moderate improvement of volume overload. Weight is 83 from 107 kg on admission. Fluid balance -2834. Patient still has 2+ pitting edema in bilateral lower extremities. Likely secondary to noncompliance with medications. History of valvular heart disease and cardiomyopathy. Very good response with IV diuretics. Switch IV Bumex to p.o. torsemide in anticipation for discharge tomorrow. Strict in and out, fluid restriction, daily weights. Continue VI, beta-blockers, diuretics and Aldactone Echo 07/2019 shows EF of 30%, moderate to severe LV dysfunction, LVH, grade 2 diastolic dysfunction, moderate left atrial and right atrial dilation, moderate to severe MR, moderate AR, no . Cardiology consulted. Recommendations noted. (2) Acute respiratory failure with hypoxia Is this a current diagnosis for this admission?: Yes Plan: Moderate improvement. SPO2 WNL on RA. Secondary to volume overload caused by decompensated heart failure. BiPAP PRN, supplemental O2, incentive spirometry, flutter valve, DuoNebs as needed. (3) Anasarca Is this a current diagnosis for this admission?: Yes Plan: Moderate improvement. Secondary to CHF. Renal function is normal. Plan as per above. (4) Diabetes mellitus type 2 in obese Is this a current diagnosis for this admission?: Yes Plan: Controlled. Hemoglobin A1c 6.4. Takes metformin at home. Resume home meds. Diabetic diet. Sliding scale insulin, Accu-Chek, hypoglycemia protocol. Resume home meds upon discharge. (5) History of CVA (cerebrovascular accident) Is this a current diagnosis for this admission?: Yes Plan: Persistent unchanged right-sided hemiplegia. Continue aspirin and atorvastatin. Continue fall and seizure precautions. Continue PT OT. Patient refuses to be transitioned to SNF. Prefers going home. Stating that his son takes good care of her. (6) Poorly-controlled hypertension Is this a current diagnosis for this admission?: Yes Plan: Improving. Continue lisinopril, Aldactone, beta-blockers and diuretics. Adjust meds as needed. Outpatient PCP and cardiology follow-up. (7) Morbid obesity with BMI of 40.0-44.9, adult Is this a current diagnosis for this admission?: Yes Plan: TSH 1.67. BMI 38.0. Diet and lifestyle modification recommended. (8) Noncompliance with medication regimen Is this a current diagnosis for this admission?: Yes Plan: Patient has recurrent hospitalization with decompensated heart failure. Mostly due to medication noncompliance. As per my conversation patient is stating that she is compliant with her medication and her son who is living with her is assisting her with her medication. I have suggested for patient to be transferred to either SNF or half-way where she can get help with her PT, medication administration and assistance with her ADLs, but patient insists that she is well taken care of at home and h er son is taking care of her. Was able to talk to her son Ten and explained to him that patient would benefit from short-term SNF and he has agreed for her mother to transition to SNF. I have talked with discharge planning but unfortunately patient does not qualify to be transitioned to rehab and also patient adamantly has been refusing to be transition to rehab anyway. Patient would like to be discharged home. Patient also reports drinking excessive amount of water went home. Patient was extensively advised about heart failure and was advised to restrict her fluid intake when she is on. Patient voiced understanding. We will also try to switch her medication to once daily regimen for ease of administration.
[2019-12-23 15:07] LABS: POTASSIUM 3.5 mmol/L (3.6-5.0)
--- NOTE | 2019-12-23 22:51 | Progress Note ---
Provider Note Provider Note: CARDIOLOGY PROGRESS NOTE by Dr. Celine Dorsey on 12/23/2019. SUBJECTIVE: The patient has diuresed a lot and in fact her BUN going up, although creatinine and GFR remain normal.. Hence her IV diuretics will be stopped and she will be placed on p.o. diuretics. She denies any chest pain or discomfort. There is no shortness of breath. There is no PND or orthopnea. There is no arrhythmias seen on the monitor. Her leg edema is much improved and there is only trace pedal edema now. PHYSICAL EXAMINATION: The patient is mild to moderately obese. In no acute distress. Selected Entries 12/23/19 08:12 Temperature 97.4 F Temperature Oral Source Pulse Rate 75 Respiratory 18 Rate Blood Pressure 151/94 H Blood Pressure 113 Mean BP Location Right Arm BP Position Supine O2 Sat by Pulse 94 Oximetry Oxygen Delivery Room Air Method HEAD: Head is atraumatic normocephalic. EYES: Pupils are equal round regular react to light accommodation. Extraocular movements are normal. There is no clinical pallor. There is no scleral icterus. EARS: Tympanic membranes are intact. External auditory canals are clear. NOSE: There is no deviated nasal septum. There is no inflammation of the nasal mucous membrane. MOUTH: His membranes of mouth are moist tongue is moist there is no ulcers there is no bleeding from the gums. THROAT: There is no exudates in the throat. There is no redness of the oropharynx. SKIN: There is no petechia or ecchymosis. There is no skin lesions or skin rashes. NECK: Is supple. There is no JVD. Carotids are equal there is no bruit. There is no lymphadenopathy. There is no goiter. HEART: S1-S2 is heard there is no S3 gallop there is no S4 gallop. There is systolic murmur left sternal border and the apex there is no rub. ABDOMEN: Is soft obese. There is mild tenderness in the right palpation right upper quadrant. There is no rebound or guarding.. Or rigidity. There is no hepatosplenic megaly. Bowel sounds are well heard. EXTREMITIES: Femorals are deep. The femorals are diminished. There is trace pedal edema. There is venous stasis dermatitis. There is no cyanosis or clubbing. Capillary refill is normal. There is no DVT or cellulitis. There is no calf tenderness.. PILLOW FILLER: The patient is conscious awake alert but seems to be confused and not able to give a good history, she has mild right-sided weakness. With no focal deficits. Psychiatric: The patient is not agitated or anxious. The patient's 24-hour intake is 666 mL and a total of 24-hour output is 3500 mL. Labs- All tests 24 hr 12/23/19 12/23/19 12/23/19 05:05 08:13 11:27 Sodium 136.3 L Potassium 3.5 L Chloride 96 L Carbon Dioxide 32 H Anion Gap 8 BUN 28 H Creatinine 0.92 Est GFR ( Amer) > 60 Est GFR (MDRD) Non-Af > 60 Glucose 101 POC Glucose 91 122 H Calcium 8.6 Magnesium 12/23/19 12/23/19 12/23/19 14:27 16:42 21:42 Sodium Potassium 3.5 L Chloride Carbon Dioxide Anion Gap BUN Creatinine Est GFR ( Amer) Est GFR (MDRD) Non-Af Glucose POC Glucose 104 101 Calcium Magnesium 1.4 L Chest X-Ray 12/16/19 06:28 IMPRESSION: Interval development of a small to moderate right pleural effusion with underlying atelectasis and/or pneumonia in the right mid to lower lung. IMPRESSION/RECOMMENDATION: 1. 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 I would continue patient on Toprol-XL and lisinopril. Continue spironolactone. When stopping the patient's IV Bumex and started the patient on oral torsemide. 2. Hypertension still not well controlled. 3. History of prior CVA with right-sided residual weakness. The patient mentally also is very slow and seems confused and not answering questions 4. Diabetes mellitus: Continue monitoring the patient blood sugar. Continue antidiabetic medication. 5. Cardiomyopathy with moderately reduced LV ejection fraction. 6. Pulmonary hypertension: Suspect this is due to cardiac myopathy and patient's uncontrolled blood pressure. We will treat the patient blood pressure. Later would recommend the patient have a sleep study to make sure that she does not have obstructive sleep apnea. Will add hydralazine 7. CARDIOMYOPATHY: With moderately to severely reduced LV ejection fraction [08/18 echo LVEF reported as 30%]. Suspect this is due to the patient's uncontrolled hypertension and diabetes mellitus. 8. Abnormal liver function tests: This is secondary to right heart failure. At present we will discontinue the patient's atorvastatin until the right heart failure and the liver function is improved. We will continue to hold the atorvastatin for some more time. Note the patient liver function tests is reverted to normal. Medications reviewed. Medical regimen and medical management plan discussed with attending provider. Medical decision making is of moderate complexity. 40 minutes spent on patient with more than 50% of time spent in direct patient care.
[2019-12-24] MEDS: INSULIN LISPRO 100 UNIT/ML 3 ML VIAL SUBCUT SCH ×3 (08:01→16:39)
[2019-12-24] MEDS: TORSEMIDE 20 MG TABLET PO SCH (09:54)
[2019-12-24] MEDS: METFORMIN HCL 500 MG TABLET PO SCH ×2 (09:54→17:09)
[2019-12-24] MEDS: ASPIRIN 81 MG TABLET, ENT COATED PO SCH (09:55)
[2019-12-24] MEDS: POTASSIUM CHLORIDE 10 MEQ TABLET.ER PO SCH (09:55)
[2019-12-24] MEDS: MAGNESIUM OXIDE 400 MG TABLET PO SCH (09:55)
[2019-12-24] MEDS: ENOXAPARIN SODIUM INJ 40 MG/0.4 ML DISP.SYRIN SUBCUT SCH (09:56)
[2019-12-24] MEDS ORDERED: SPIRONOLACTONE 25 MG TABLET PO SCH (10:00)
[2019-12-24] MEDS ORDERED: METOPROLOL SUCCINATE 50 MG TAB.SR.24H PO SCH (10:00)
[2019-12-24] MEDS ORDERED: LISINOPRIL 10 MG TABLET PO SCH ×2 (11:00→18:00)
[2019-12-24 12:13] LABS: POTASSIUM 3.9 mmol/L (3.6-5.0)
[2019-12-24 15:59] VITALS: BP 148/74
[2019-12-24] MEDS ORDERED: MAGNESIUM OXIDE 400 MG TABLET PO SCH (18:00)
--- NOTE | 2019-12-24 22:38 | Progress Note ---
Provider Note Provider Note: CARDIOLOGY PROGRESS NOTE by Dr. Celine Dorsey on 12/24/2019. Subjective: The Patient Denies Any Chest Pain or Discomfort. There Is No Shortness of Breath. There Is No PND Orthopnea. There Is No Arrhythmias Seen on the Monitor. Leg Edema Is Much Well Resolved. The Patient's CHF Seems to Be Well Compensated. PHYSICAL EXAMINATION: The patient is mildly obese. At present in no acute distress. Selected Entries 12/24/19 12:12 Temperature 98.0 F Temperature Oral Source Pulse Rate 77 Respiratory 18 Rate Blood Pressure 148/74 H Blood Pressure 98 Mean BP Location Left Arm BP Position Supine O2 Sat by Pulse 96 Oximetry Oxygen Delivery Room Air Method HEAD: Head is atraumatic normocephalic. EYES: Pupils are equal round regular react to light accommodation. Extraocular movements are normal. There is no clinical pallor. There is no scleral icterus. EARS: Tympanic membranes are intact. External auditory canals are clear. NOSE: There is no deviated nasal septum. There is no inflammation of the nasal mucous membrane. MOUTH: His membranes of mouth are moist tongue is moist there is no ulcers there is no bleeding from the gums. THROAT: There is no exudates in the throat. There is no redness of the oropharynx. SKIN: There is no petechia or ecchymosis. There is no skin lesions or skin rashes. NECK: Is supple. There is no JVD. Carotids are equal there is no bruit. There is no lymphadenopathy. There is no goiter. HEART: S1-S2 is heard there is no S3 gallop there is no S4 gallop. There is systolic murmur left sternal border and the apex there is no rub. ABDOMEN: Is soft obese. There is mild tenderness in the right palpation right upper quadrant. There is no rebound or guarding.. Or rigidity. There is no hepatosplenic megaly. Bowel sounds are well heard. EXTREMITIES: Femorals are deep. The femorals are diminished. There is trace pedal edema. There is venous stasis dermatitis. There is no cyanosis or clubbing. Capillary refill is normal. There is no DVT or cellulitis. There is no calf tenderness.. GAME ADVISOR: The patient is conscious awake alert but seems to be confused and not able to give a good history, she has mild right-sided weakness. With no focal deficits. Psychiatric: The patient is not agitated or anxious. The 24-hour intake is 692 mL. Output is 4075 mL Labs- All tests 24 hr 12/24/19 12/24/19 12/24/19 07:48 11:14 12:11 Potassium 3.9 POC Glucose 95 95 Magnesium 1.5 L 12/24/19 16:32 Potassium POC Glucose 87 Magnesium Chest X-Ray 12/16/19 06:28 IMPRESSION: Interval development of a small to moderate right pleural effusion with underlying atelectasis and/or pneumonia in the right mid to lower lung. IMPRESSION/RECOMMENDATION: 1. Acute on chronic left ventricle and right ventricular systolic heart failure: This is compensated well. Continue the patient on torsemide p.o., beta-tri in the form of Toprol-XL and VI inhibitor. Continue spironolactone. Compliance with medications stressed with the patient. 2. Hypertension still not well controlled. 3. History of prior CVA with right-sided residual weakness. The patient mentally also is very slow history oriented x3. 4. Diabetes mellitus: Continue monitoring the patient blood sugar. Continue antidiabetic medication. 5. Cardiomyopathy with moderately reduced LV ejection fraction. The patient only recently has been started on good medical therapy for cardiomyopathy. As discussed with the son we will repeat the patient's echo in 3 months from now and if still 35% or below then would recommend referral for AICD. Also will get an outpatient IV Lexiscan Cardiolite stress test to be sure the patient does not have underlying coronary artery disease. This has been discussed with the patient's son with the patient's permission also discussed with the patient. 6. Pulmonary hypertension: Suspect this is due to cardiac myopathy and patient's uncontrolled blood pressure. We will treat the patient blood pressure. Later would recommend the patient have a sleep study to make sure that she does not have obstructive sleep apnea. Will add hydralazine 7. CARDIOMYOPATHY: With moderately to severely reduced LV ejection fraction [08/18 echo LVEF reported as 30%]. Suspect this is due to the patient's uncontrolled hypertension and diabetes mellitus. 8. Abnormal liver function tests: This is secondary to right heart failure. At present we will discontinue the patient's atorvastatin until the right heart failure and the liver function is improved. We will continue to hold the atorvastatin for some more time. Note the patient liver function tests is reverted to normal. Medications reviewed. Discussed discharge medications, and management plan with attending provider on the case. Medical decision making is of moderate complexity. Also spoke to the patient's son on the telephone. The patient has an appointment coming Thursday in my office at 12:30 PM. The son knows this and will bring her to the office. He is the son has my cell number to contact me if the patient she develop any problems. Will sign off and follow the patient in the office.
--- NOTE | 2019-12-27 20:32 | PDOC DISCHARGE SUMMARY ---
Impression - Admit/DC Date/PCP Admission Date/Primary Care Provider: 12/16/19 14:28 LARRY ARRIAZA DO Discharge Date: 12/24/19 - Discharge Diagnosis (1) Acute combined systolic (congestive) and diastolic (congestive) heart failure Is this a current diagnosis for this admission?: Yes (2) Acute respiratory failure with hypoxia Is this a current diagnosis for this admission?: Yes (3) Anasarca Is this a current diagnosis for this admission?: Yes (4) Diabetes mellitus type 2 in obese Is this a current diagnosis for this admission?: Yes (5) History of CVA (cerebrovascular accident) Is this a current diagnosis for this admission?: Yes (6) Poorly-controlled hypertension Is this a current diagnosis for this admission?: Yes (7) Morbid obesity with BMI of 40.0-44.9, adult Is this a current diagnosis for this admission?: Yes (8) Noncompliance with medication regimen Is this a current diagnosis for this admission?: Yes - Additional Information Resuscitation Status: Full Code Discharge Diet: Cardiac, Diabetic Discharge Activity: Activity As Tolerated, Balance Activity w/Rest Referrals: ZANDER BYERS MD [ACTIVE STAFF] - 12/27/19 12:30 pm LARRY ARRIAZA DO [Primary Care Provider] - 12/26/19 1:30 pm Prescriptions: Spironolactone [Aldactone 25 mg Tablet] 25 mg PO BID 30 Days #60 tablet Torsemide [Demadex 20 mg Tablet] 20 mg PO DAILY 30 Days #30 tablet Metformin HCl [Glucophage] 1,000 mg PO BID 30 Days #60 tablet Atorvastatin Calcium [Lipitor 40 mg Tablet] 40 mg PO QHS 30 Days #30 tablet Magnesium Oxide [Mag-Oxide Magnesium] 400 mg PO BID 7 Days #14 tablet Metoprolol Succinate [Toprol Xl] 100 mg PO DAILY 30 Days #30 tab.er.24h Lisinopril [Zestril] 40 mg PO BID 30 Days #60 tablet Home Medications: Atorvastatin Calcium [Lipitor 40 mg Tablet] 40 mg PO QHS 30 Days #30 tablet 12/24/19 Lisinopril [Zestril] 40 mg PO BID 30 Days #60 tablet 12/24/19 Magnesium Oxide [Mag-Oxide Magnesium] 400 mg PO BID 7 Days #14 tablet 12/24/19 Metformin HCl [Glucophage] 1,000 mg PO BID 30 Days #60 tablet 12/24/19 Metoprolol Succinate [Toprol Xl] 100 mg PO DAILY 30 Days #30 tab.er.24h 12/24/19 Spironolactone [Aldactone 25 mg Tablet] 25 mg PO BID 30 Days #60 tablet 12/24/19 Torsemide [Demadex 20 mg Tablet] 20 mg PO DAILY 30 Days #30 tablet 12/24/19 History of Present Illiness History of Present Illness: PHILLIP DORANTES is a 49 year old female with a history of CHF, CVA with right- sided paralysis, diabetes mellitus type 2, hypertension, who presents to the hospital with complaints of shortness of breath for the past several days as well as decreased swelling in her lower extremities. Patient felt very dyspneic today prompting her arrival in the ER via ambulance. Patient admits to orthop david and PND. She states that she takes her medications regularly and states that all her medications in her plastic bag on the table. However, on reviewing her pill bottles in her plastic bag, and noticed that these are all prescriptions from her last discharge from this hospital on October 14 for which she was only given 30-day supply. This leads me to believe the patient is highly noncompliant with her medications. Patient denies any sick contacts. She lives with her son. She is immobile due to her stroke. She seems to have some expressive aphasia as well but able to communicate decently. She denies history of COPD and states that she is not on any home oxygen or breathing machines at home. Denies fever chills. Patient was noted to be very dyspneic upon initial presentation in the ER and tripoding. She was subsequently placed on BiPAP and given Lasix 80 mg IV with adequate diuresis of over 2 L immediately. Able to be weaned off BiPAP. Hospital Course Hospital Course: (1) Acute combined systolic (congestive) and diastolic (congestive) heart failure Moderate improvement of volume overload. Weight is 80 from 107 kg on admission. Likely secondary to noncompliance with medications. History of valvular heart disease and cardiomyopathy. Very good response with IV diuretics. Initially was started IV Bumex and subsequently was switched to torsemide in anticipation for discharge home. Started on strict in and out, fluid restriction, daily weights. Continued VI, beta-blockers, and Aldactone. Adjust the dosage as needed. 07/2019 2D echo EF of 30%, moderate to severe LV dysfunction, LVH, grade 2 diastolic dysfunction, moderate left atrial and right atrial dilation, moderate to severe MR, moderate AR, no . Cardiology consulted. Recommendations noted. Please refer to note. (2) Acute respiratory failure with hypoxia Moderate improvement. SPO2 WNL on RA. Secondary to volume overload caused by decompensated heart failure. Started on BiPAP PRN, supplemental O2, incentive spirometry, flutter valve, DuoNebs as needed. (3) Anasarca Significant improvement. Secondary to CHF. Plan as per above. (4) Diabetes mellitus type 2 in obese Controlled. Hemoglobin A1c 6.4. Takes metformin at home. Resume home meds. Diabetic diet. Sliding scale insulin, Accu-Chek, hypoglycemia protocol. Advised to resume home meds upon discharge. (5) History of CVA (cerebrovascular accident) Persistent unchanged right-sided hemiplegia. Continued aspirin and atorvastatin. Continued fall and seizure precautions. Continued PT OT. Patient refuses to be transitioned to SNF. Prefers going home. Stating that his son takes good care of her. (6) Poorly-controlled hypertension Much improved since admission. Continued lisinopril, Aldactone, beta-blockers and diuretics. Adjusted meds as needed. Outpatient PCP and cardiology follow-up. (7) Morbid obesity with BMI of 40.0-44.9, adult TSH 1.67. BMI 38.0. Diet and lifestyle modification recommended. (8) Noncompliance with medication regimen Patient has recurrent hospitalization with decompensated heart failure. Mostly due to medication noncompliance. As per my conversation patient is stating that she is compliant with her medication and her son who is living with her is assisting her with her medication. Unfortunately patient refused to be transitioned to SNF or long-term care. Prefers to go home. Stating that her sons are taking good care of her. Physical Exam Vital Signs: Temp Pulse Resp BP Pulse Ox 98.0 F 78 20 122/102 H 98 12/24/19 12:20 12/24/19 12:20 12/24/19 12:20 12/24/19 12:20 12/24/19 12:20 General appearance: PRESENT: no acute distress, obese, well-developed, well- nourished Head exam: PRESENT: atraumatic, normocephalic Eye exam: PRESENT: conjunctiva pink, EOMI, PERRLA. ABSENT: scleral icterus Respiratory exam: PRESENT: clear to auscultation ac. ABSENT: rales, rhonchi, wheezes Cardiovascular exam: PRESENT: RRR. ABSENT: diastolic murmur, rubs, systolic murmur Pulses: PRESENT: normal dorsalis pedis pul GI/Abdominal exam: PRESENT: normal bowel sounds, soft. ABSENT: distended, guarding, mass, organolmegaly, rebound, tenderness Extremities exam: PRESENT: full ROM. ABSENT: calf tenderness, clubbing, pedal edema Neurological exam: PRESENT: alert, awake, oriented to person, oriented to place, oriented to time, oriented to situation, CN II-XII grossly intact, motor sensory deficit - Right upper and lower extremity chronic hemiplegia. Skin exam: PRESENT: dry, intact, warm. ABSENT: cyanosis, rash Results Laboratory Results: WBC 6.5 10^3/uL (4.0-10.5) 12/18/19 05:07 RBC 3.93 10^6/uL (3.72-5.28) 12/18/19 05:07 Hgb 10.0 g/dL (12.0-15.5) L 12/18/19 05:07 Hct 32.3 % (36.0-47.0) L 12/18/19 05:07 MCV 82 fl (80-97) 12/18/19 05:07 MCH 25.6 pg (27.0-33.4) L 12/18/19 05:07 MCHC 31.1 g/dL (32.0-36.0) L 12/18/19 05:07 RDW 20.0 % (11.5-14.0) H 12/18/19 05:07 Plt Count 275 10^3/uL (150-450) 12/18/19 05:07 Lymph % (Auto) 18.8 % (13-45) 12/16/19 06:44 [place] % (Auto) 6.4 % (3-13) 12/16/19 06:44 Eos % (Auto) 2.6 % (0-6) 12/16/19 06:44 Baso % (Auto) 1.1 % (0-2) 12/16/19 06:44 Absolute Neuts (auto) 3.9 10^3/uL (1.7-8.2) 12/16/19 06:44 Absolute Lymphs (auto) 1.0 10^3/uL (0.5-4.7) 12/16/19 06:44 Absolute Monos (auto) 0.4 10^3/uL (0.1-1.4) 12/16/19 06:44 Absolute Eos (auto) 0.1 10^3/uL (0.0-0.6) 12/16/19 06:44 Absolute Basos (auto) 0.1 10^3/uL (0.0-0.2) 12/16/19 06:44 Seg Neutrophils % 71.1 % (42-78) 12/16/19 06:44 Platelet Estimate Cancelled 12/17/19 05:27 PT 17.2 SEC (11.4-15.4) H 12/17/19 05:27 INR 1.39 12/17/19 05:27 APTT 27.4 SEC (23.5-35.8) 12/16/19 08:50 Carbonic Acid 1.10 mmol/L (1.05-1.35) 12/16/19 11:30 HCO3/H2CO3 Ratio 22:1 12/16/19 11:30 ABG pH 7.45 (7.35-7.45) 12/16/19 11:30 ABG pCO2 36.7 mmHg (35-45) 12/16/19 11:30 ABG pO2 173.5 mmHg (80-100) H 12/16/19 11:30 ABG HCO3 24.9 mmol/L (20-24) H 12/16/19 11:30 ABG Total CO2 26.1 mmol/L (21-25) H 12/16/19 11:30 ABG O2 Saturation 99.3 % (94-98) H 12/16/19 11:30 ABG Base Excess 1.1 mmol/L 12/16/19 11:30 FiO2 4L 12/16/19 11:30 Sodium 136.3 mmol/L (137-145) L 12/23/19 05:05 Potassium 3.9 mmol/L (3.6-5.0) 12/24/19 11:14 Chloride 96 mmol/L (98-107) L 12/23/19 05:05 Carbon Dioxide 32 mmol/L (22-30) H 12/23/19 05:05 Anion Gap 8 (5-19) 12/23/19 05:05 BUN 28 mg/dL (7-20) H 12/23/19 05:05 Creatinine 0.92 mg/dL (0.52-1.25) 12/23/19 05:05 Est GFR ( Amer) > 60 (>60) 12/23/19 05:05 Est GFR (Non-Af Amer) Cancelled 12/16/19 06:44 Est GFR (MDRD) Non-Af > 60 (>60) 12/23/19 05:05 Glucose 101 mg/dL (75-110) 12/23/19 05:05 POC Glucose 87 mg/dL (70-110) 12/24/19 16:32 Hemoglobin A1c % 6.5 % (4.7-6.0) H 12/17/19 05:27 Lactic Acid 2.0 mmol/L (0.7-2.1) 12/16/19 17:33 Calcium 8.6 mg/dL (8.4-10.2) 12/23/19 05:05 Magnesium 1.5 mg/dL (1.6-2.3) L 12/24/19 11:14 Total Bilirubin 1.9 mg/dL (0.2-1.3) H 12/19/19 05:38 Direct Bilirubin 1.2 mg/dL (0.0-0.4) H 12/19/19 05:38 Neonat Total Bilirubin Not Reportable 12/19/19 05:38 Neonat Direct Bilirubin Not Reportable 12/19/19 05:38 Neonat Indirect Bili Not Reportable 12/19/19 05:38 AST 23 U/L (14-36) 12/19/19 05:38 ALT 10 U/L (<35) 12/19/19 05:38 Alkaline Phosphatase 119 U/L (38-126) 12/19/19 05:38 Troponin I 0.020 ng/mL 12/16/19 17:33 NT-Pro-B Natriuret Pep 8260 pg/mL (<125) H 12/16/19 08:50 Total Protein 7.7 g/dL (6.3-8.2) 12/19/19 05:38 Albumin 3.0 g/dL (3.5-5.0) L 12/19/19 05:38 EGFR Cancelled 12/16/19 06:44 TSH 1.67 uIU/mL (0.47-4.68) 12/17/19 05:27 Urine Color [place] 12/16/19 07:13 Urine Appearance CLEAR 12/16/19 07:13 Urine pH 6.0 (5.0-9.0) 12/16/19 07:13 Ur Specific [place] 1.013 12/16/19 07:13 Urine Protein 100 mg/dL (NEGATIVE) H 12/16/19 07:13 Urine Glucose (UA) NEGATIVE mg/dL (NEGATIVE) 12/16/19 07:13 Urine Ketones NEGATIVE mg/dL (NEGATIVE) 12/16/19 07:13 Urine Blood SMALL (NEGATIVE) H 12/16/19 07:13 Urine Nitrite NEGATIVE (NEGATIVE) 12/16/19 07:13 Urine Bilirubin NEGATIVE (NEGATIVE) 12/16/19 07:13 Urine Urobilinogen 4.0 mg/dL (<2.0) H 12/16/19 07:13 Ur Leukocyte Esterase TRACE (NEGATIVE) H 12/16/19 07:13 Urine WBC (Auto) 9 /HPF 12/16/19 07:13 Urine RBC (Auto) 3 /HPF 12/16/19 07:13 U Hyaline Cast (Auto) 1 /LPF 12/16/19 07:13 Squamous Epi Cells Auto 4 /HPF 12/16/19 07:13 Urine Mucus (Auto) OCC /LPF 12/16/19 07:13 Urine Ascorbic Acid NEGATIVE (NEGATIVE) 12/16/19 07:13 Urine Opiates Screen NEGATIVE 12/16/19 07:13 Urine Methadone Screen NEGATIVE 12/16/19 07:13 Ur Barbiturates Screen NEGATIVE 12/16/19 07:13 Ur Phencyclidine Scrn NEGATIVE 12/16/19 07:13 Ur Amphetamines Screen NEGATIVE 12/16/19 07:13 U Benzodiazepines Scrn NEGATIVE 12/16/19 07:13 Urine Cocaine Screen NEGATIVE 12/16/19 07:13 U Marijuana (THC) Screen NEGATIVE 12/16/19 07:13 Serum Alcohol < 10 mg/dL (NONE DETECTED) 12/16/19 08:50 Slides for Path Review Cancelled 12/17/19 05:27 12/16/19 12/16/19 12/16/19 06:44 08:50 17:33 Troponin I Cancelled 0.024 0.020 NT-Pro-B Natriuret Pep Cancelled 8260 H Impressions: Chest X-Ray 12/16/19 06:28 IMPRESSION: Interval development of a small to moderate right pleural effusion with underlying atelectasis and/or pneumonia in the right mid to lower lung. Stroke Is this a Stroke Patient?: No Acute Heart Failure - Is this a Heart Failure Patient?: No
== END 2019-12-24 19:34 | disposition home health service (06) | DRG 291 ==
LOC: ER 06:12 → EH 14:28 → 3W 17:07
PROVIDERS: ADMIT Internal Medicine; ATTEND Internal Medicine
DX: I11.0 Hypertensive heart disease with heart failure (principal); J96.01 Acute respiratory failure with hypoxia; I69.351 Hemiplegia and hemiparesis following cerebral infarction affecting right dominant side; I50.43 Acute on chronic combined systolic (congestive) and diastolic (congestive) heart failure; I16.0 Hypertensive urgency; E11.65 Type 2 diabetes mellitus with hyperglycemia; I42.9 Cardiomyopathy, unspecified; I27.20 Pulmonary hypertension, unspecified; I25.10 Atherosclerotic heart disease of native coronary artery without angina pectoris; E78.5 Hyperlipidemia, unspecified; I69.320 Aphasia following cerebral infarction; Z91.14 Patient's other noncompliance with medication regimen
CPT/HCPCS: 36415; 36600; 71045; 80048; 80053; 80307; 81001; 82803; 82962; 83036; 83605; 83735; 83880; 84132; 84443; 84484; 85025; 85027; 85610; 85730; 87040; 87070; 93005; 93010; 94640; 94660; 96374; 96375; 96376; 99291; J0360; J1650; J1815; J1940; J2270; J2405; J3475; J3490; J7620

== ENCOUNTER 2020-02-04 03:17 | Emergency (ER) | payer MEDICAID ==
[2020-02-04 05:05] LABS: ABSOLUTE EOSINOPHILS # (AUTO) 0.1 10^3/uL (0.0-0.6); ABSOLUTE LYMPHOCYTES (AUTO) 1.5 10^3/uL (0.5-4.7); ABSOLUTE MONOCYTES (AUTO) 0.3 10^3/uL (0.1-1.4); ABSOLUTE NEUT (AUTO) 3.4 10^3/uL (1.7-8.2); BASOPHILS % (AUTO) 0.6 % (0-2); EOSINOPHILS % (AUTO) 1.7 % (0-6); HEMATOCRIT 37.1 % (36.0-47.0); HEMOGLOBIN 11.8 g/dL (12.0-15.5); LYMPHOCYTES % (AUTO) 28.7 % (13-45); MEAN CORPUSCULAR HEMOGLOBIN 26.1 pg (27.0-33.4); MEAN CORPUSCULAR HGB CONC 31.7 g/dL (32.0-36.0); MEAN CORPUSCULAR VOLUME 82 fl (80-97); MONOCYTES % (AUTO) 5.4 % (3-13); PLATELET COUNT 266 10^3/uL (150-450); RED BLOOD COUNT 4.52 10^6/uL (3.72-5.28); RED CELL DISTRIBUTION WIDTH 22.5 % (11.5-14.0); SEGMENTED NEUTROPHILS % (AUTO) 63.6 % (42-78); TOTAL CELLS COUNTED % (AUTO) 100 %; WHITE BLOOD COUNT 5.4 10^3/uL (4.0-10.5)
[2020-02-04 05:08] LABS: ALBUMIN 3.6 g/dL (3.5-5.0); ALKALINE PHOSPHATASE 158 U/L (38-126); ANION GAP 8 (5-19); ASPARTATE AMINO TRANSFERASE 34 U/L (14-36); BILIRUBIN,DIRECT 1.5 mg/dL (0.0-0.4); BILIRUBIN,TOTAL 2.6 mg/dL (0.2-1.3); BLOOD UREA NITROGEN 20 mg/dL (7-20); CARBON DIOXIDE 23 mmol/L (22-30); CHLORIDE 106 mmol/L (98-107); GLUCOSE 135 mg/dL (75-110); POTASSIUM 3.8 mmol/L (3.6-5.0); TOTAL PROTEIN 8.2 g/dL (6.3-8.2)
[2020-02-04 05:11] LABS: ALCOHOL < 10 mg/dL (NONE DETECTED)
[2020-02-04 05:47] LABS: APPEARANCE,URINE SLIGHTLY-CLOUDY; BILIRUBIN,URINE NEGATIVE (NEGATIVE); COLOR,URINE YELLOW; GLUCOSE, URINE NEGATIVE (NEGATIVE); KETONES,URINE NEGATIVE (NEGATIVE); LEUKOCYTE ESTERASE,URINE NEGATIVE (NEGATIVE); NITRITE,URINE NEGATIVE (NEGATIVE); PROTEIN,URINE 100 mg/dL (NEGATIVE); URINE SPECIFIC GRAVITY 1.016
[2020-02-04 05:57] LABS: URINE AMPHETAMINES SCREEN NEGATIVE; URINE BARBITURATES SCREEN NEGATIVE; URINE BENZODIAZEPINES SCREEN NEGATIVE; URINE COCAINE SCREEN NEGATIVE; URINE MARIJUANA (THC) SCREEN NEGATIVE; URINE METHADONE SCREEN NEGATIVE; URINE PHENCYCLIDINE SCREEN NEGATIVE
[2020-02-04] MEDS ORDERED: LEVETIRACETAM 1000 MG/NACL-ISO 1,000 MG/100 ML RTUPB IV ONE (06:17)
[2020-02-04] MEDS ORDERED: LABETALOL HCL INJ 20 MG/4 ML DISP.SYRIN IV ONE (06:17)
--- NOTE | 2020-02-04 06:30 | ER Document Report ---
ED General - General Chief Complaint: Seizure Stated Complaint: POSSIBLE SEIZURE Time Seen by Provider: 02/04/20 06:05 Primary Care Provider: LARRY ARRIAZA DO [Primary Care Provider] - Follow up as needed TRAVEL OUTSIDE OF THE [place] IN LAST 30 DAYS: No - HPI Notes: Chief complaint: Seizure History of present illness: 49-year-old female with history of old stroke with residual right hemiparesis and recurrent seizures taking Keppra 500 mg twice daily now transported here via EMS after having brief generalized seizure at home. No specific precipitating factor is identified. Patient was initially postictal but now is becoming more oriented and says she is taking prescribed medication denies missing any doses. She denies headache or any other new symptoms at this time. She denies vomiting, diarrhea, or fever. She denies headache. Review of past records indicates that this lady has diabetes mellitus type 2, old stroke, CHF with low ejection fraction and chronic anasarca and jaundice which is apparently attributed to passive hepatic congestion related to her heart failure. - Related Data Allergies/Adverse Reactions: No Known Allergies Allergy (Verified 08/08/19 14:00) Past Medical History - General Information source: Patient, Emergency Med Personnel, [facility] Records - Social History Smoking Status: Unknown if Ever Smoked Frequency of alcohol use: None Drug Abuse: None Lives with: Family Family History: Reviewed & Not Pertinent, DM, Other Patient has homicidal ideation: No - Past Medical History Cardiac Medical History: Reports: Hx Congestive Heart Failure, Hx Coronary Artery Disease, Hx Heart Attack, Hx Hypercholesterolemia, Hx Hypertension, Hx Heart Murmur Pulmonary Medical History: Denies: Hx Asthma, Hx COPD Neurological Medical History: Reports: Hx Cerebrovascular Accident, Hx Seizures Endocrine Medical History: Reports: Hx Diabetes Mellitus Type 2. Denies: Hx Diabetes Mellitus Type 1, Hx Hyperthyroidism, Hx Hypothyroidism Renal/ Medical History: Denies: Hx Peritoneal Dialysis GI Medical History: Denies: Hx Cirrhosis, Hx Hepatitis Musculoskeletal Medical History: Denies Hx Arthritis, Denies Hx Gout Skin Medical History: Denies Hx Eczema, Denies Hx Psoriasis Psychiatric Medical History: Denies: Hx Depression Infectious Medical History: Denies: Hx Hepatitis Past Surgical History: Reports: Hx Cardiac Catheterization, Hx Cholecystectomy, Hx Coronary Stent - Immunizations Hx Diphtheria, Pertussis, Tetanus Vaccination: Yes Review of Systems - Review of Systems Notes: Constitutional: Negative for fever. HENT: Negative for sore throat. Eyes: Negative for visual changes. Cardiovascular: Negative for chest pain. Respiratory: Negative for shortness of breath. Gastrointestinal: Negative for abdominal pain, vomiting or diarrhea. Genitourinary: Negative for dysuria. Musculoskeletal: Negative for back pain. Skin: Negative for rash. Neurological: As per HPI. 10 point ROS negative except as marked above and in HPI. Physical Exam - Vital signs Vitals: BP 195/119 H 02/04/20 03:22 - Notes Notes: GENERAL: Middle-age female with old right hemiparesis appearing mildly postictal. SKIN: Mild jaundice. Good turgor no rashes. HEAD: Normocephalic atraumatic. EYES: PERRLA. EOMI. bilateral scleral icterus. EARS: CANALS AND TMS CLEAR. NOSE: CLEAR. MOUTH: Moist mucosa. Good dentition. No stridor or edema. No drooling. NECK: Supple. No masses or thyromegaly. No adenopathy. Carotids 2+ without bruits. No JVD. BACK: Symmetrical without tenderness. CHEST: Respirations unlabored. Breath sounds clear and symmetrical. HEART: Regular rhythm. No murmur gallop or rub. ABDOMEN: Soft nontender without masses, organomegaly or rebound. Bowel sounds normally active. No bruits. GENITALIA: Deferred. EXTREMITIES: No edema. No calf tenderness. Cap refill less than 1.5 seconds. Dorsalis pedis and posterior tibial pulses 3+ and symmetrical. NEUROLOGICAL: Old right hemiparesis GCS 14. Alert and oriented to person and place but not to day. Fluent speech. Cranial nerves II through XII intact. Normal tone. PSYCHIATRIC: Appropriate affect. Course - Re-evaluation Re-evalutation: 02/04/20 08:58 Patient was mildly postictal on arrival here. This gradually improved. Head CT showed no acute findings. Patient was given some additional Keppra IV here. Blood pressure is somewhat elevated and we gave her 1 dose of labetalol. CBC and chemistry profile remarkable for her baseline liver abnormalities with no other new findings. I did check a serum ammonia level and this is normal. She is currently on 500 of Keppra twice daily. I am going to increase this to 500 in the morning and 1000 at night. I am going to add some low-dose lisinopril for her blood pressure. She appears stable for discharge and will return home and follow-up with her primary care doctor. - Vital Signs Vital signs: Temp Pulse Resp BP Pulse Ox 98.4 F 96 27 H 177/113 H 99 02/04/20 03:42 02/04/20 03:42 02/04/20 06:01 02/04/20 06:01 02/04/20 06:01 - Laboratory Result Diagrams: 02/04/20 03:47 02/04/20 03:47 Laboratory results interpreted by me: 02/04/20 02/04/20 02/04/20 03:47 03:47 05:14 Hgb 11.8 L MCH 26.1 L MCHC 31.7 L RDW 22.5 H Sodium 136.7 L Glucose 135 H Total Bilirubin 2.6 H Direct Bilirubin 1.5 H Alkaline Phosphatase 158 H Ammonia Urine Protein 100 H Urine Blood SMALL H Urine Urobilinogen 4.0 H 02/04/20 07:22 Hgb MCH MCHC RDW Sodium Glucose Total Bilirubin Direct Bilirubin Alkaline Phosphatase Ammonia < 8.7 L Urine Protein Urine Blood Urine Urobilinogen - Diagnostic Test Radiology reviewed: Reports reviewed - Head CT per radiologist: Old encephalomalacia left basal ganglion related to prior CVA. No acute changes noted. Discharge - Discharge Clinical Impression: Seizure, Essential hypertension, Old CVA Condition: Stable Disposition: HOME, SELF-CARE Additional Instructions: We are adding a new medicine for your blood pressure called lisinopril which she will take once each morning. We are making changes in the dosage of your medicine for your seizures. You are currently taking Keppra 500 mg twice a day. We will recommend that you increase the evening dose on this to 1000 mg (2 tablets). Follow-up with your primary care physician within the next 3 days. You may return here for new or worsening symptoms. Prescriptions: Lisinopril [Zestril] 2.5 mg PO QAM 30 Days #30 tablet Referrals: LARRY ARRIAZA DO [Primary Care Provider] - Follow up as needed
--- NOTE | 2020-02-04 06:46 | RADIOLOGY REPORT (SQ) ---
EXAM DESCRIPTION: CT HEAD WITHOUT IV CONTRAST COMPLETED DATE/TME: 02/04/2020 06:17 EXAM DESCRIPTION: CT of the head without contrast CLINICAL HISTORY: seizure COMPARISON: 12/09/2019 TECHNIQUE: Axial CT of the head obtained from the skull apex to the skull base without contrast. FINDINGS: No acute intracranial hemorrhage identified. No mass, mass effect, shift of the midline, abnormal extra-axial fluid collection or CT evidence of acute ischemic change identified. The ventricular system is unremarkable. Scattered hypodensities in the supratentorial white matter are nonspecific and may represent sequela of chronic small vessel ischemic change. Encephalomalacia in the left basal ganglia compatible with remote infarction. The visualized paranasal sinuses and the mastoids are relatively well aerated. No skull fracture identified. Visualized orbits and globes are unremarkable. Atherosclerotic calcification of the intracranial internal carotid artery. IMPRESSION: 1. No acute intracranial abnormality identified. This exam was performed according to our departmental dose-optimization program, which includes automated exposure control, adjustment of the mA and/or kV according to patient size and/or use of iterative reconstruction technique.
--- NOTE | 2020-02-04 07:58 | RADIOLOGY REPORT (SQ) ---
CLINICAL HISTORY: jaundice COMPARISON: 07/17/2019. TECHNIQUE: CT ABDOMEN PELVIS WITHOUT IV CONTRAST on 02/04/2020 6:41 AM CDT This exam was performed according to our departmental dose-optimization program, which includes automated exposure control, adjustment of the mA and/or kV according to patient size and/or use of iterative reconstruction technique. FINDINGS: The heart is enlarged. There is a moderate right pleural effusion. There is minimal bibasilar atelectasis. Abdomen: There is small amount of perihepatic ascites. There is no biliary dilatation. Cholecystectomy was performed. The pancreas and spleen are normal in appearance. Adrenal glands are normal. There is a small lower pole left renal cyst. There is a punctate mid pole left renal calculus. Right kidney is unremarkable. Abdominal aorta is normal in course and caliber without aneurysm. There is no free air. There is no retroperitoneal adenopathy. Pelvis: There is large amount of stool throughout the colon, especially distally. Urinary bladder is unremarkable. There is no free fluid. Uterus is normal in size. Skeleton: There are no acute osseous findings. No suspicious bony lesions. IMPRESSION: No definite acute process.
--- NOTE | 2020-02-04 10:45 | EKG REPORT ---
SEVERITY:- ABNORMAL ECG - SINUS RHYTHM PROBABLE LEFT ATRIAL ABNORMALITY PROBABLE LEFT VENTRICULAR HYPERTROPHY BORDERLINE PROLONGED QT INTERVAL : Confirmed by: Marin Pulido MD 04-Feb-2020 10:44:28
[2020-02-04 11:14] VITALS: BP 145/87
== END 2020-02-04 10:45 | disposition home or self-care (01) ==
LOC: ER 03:17
DX: G40.909 Epilepsy, unspecified, not intractable, without status epilepticus (principal); I69.351 Hemiplegia and hemiparesis following cerebral infarction affecting right dominant side; E11.9 Type 2 diabetes mellitus without complications; I11.0 Hypertensive heart disease with heart failure; I50.9 Heart failure, unspecified; I25.10 Atherosclerotic heart disease of native coronary artery without angina pectoris; R17 Unspecified jaundice; Z79.899 Other long term (current) drug therapy
CPT/HCPCS: 93005; 99284; 96375; 96365; 36415; 80307 ×2; 82140; 83735; 84703; 85025; 80053; 81001; 70450; 74176; 93010; J3490; J1953

== ENCOUNTER 2020-05-16 13:56 | Inpatient (IN) | payer MEDICAID ==
[2020-05-16] MEDS ORDERED: FUROSEMIDE INJ/PF 40 MG/4 ML SDV IV ONE (14:43)
[2020-05-16 14:54] LABS: ABSOLUTE BASOPHILS # (AUTO) 0.1 10^3/uL (0.0-0.2); ABSOLUTE EOSINOPHILS # (AUTO) 0.1 10^3/uL (0.0-0.6); ABSOLUTE MONOCYTES (AUTO) 0.3 10^3/uL (0.1-1.4); ABSOLUTE NEUT (AUTO) 2.8 10^3/uL (1.7-8.2); BASOPHILS % (AUTO) 1.3 % (0-2); EOSINOPHILS % (AUTO) 2.5 % (0-6); HEMATOCRIT 34.1 % (36.0-47.0); HEMOGLOBIN 10.8 g/dL (12.0-15.5); LYMPHOCYTES % (AUTO) 23.1 % (13-45); MEAN CORPUSCULAR HEMOGLOBIN 25.3 pg (27.0-33.4); MEAN CORPUSCULAR HGB CONC 31.6 g/dL (32.0-36.0); MEAN CORPUSCULAR VOLUME 80 fl (80-97); MONOCYTES % (AUTO) 7.2 % (3-13); PLATELET COUNT 239 10^3/uL (150-450); RED BLOOD COUNT 4.25 10^6/uL (3.72-5.28); RED CELL DISTRIBUTION WIDTH 20.3 % (11.5-14.0); SEGMENTED NEUTROPHILS % (AUTO) 65.9 % (42-78); TOTAL CELLS COUNTED % (AUTO) 100 %; WHITE BLOOD COUNT 4.3 10^3/uL (4.0-10.5)
--- NOTE | 2020-05-16 15:00 | RADIOLOGY REPORT (SQ) ---
EXAM DESCRIPTION: CHEST SINGLE VIEW IMAGES COMPLETED DATE/TIME: 05/16/2020 2:52 pm REASON FOR STUDY: SHORTNESS OF BREATH, CHF COMPARISON: 12/16/2019 EXAM PARAMETERS: NUMBER OF VIEWS: One view. TECHNIQUE: Single frontal radiographic view of the chest acquired. RADIATION DOSE: NA LIMITATIONS: None. FINDINGS: LUNGS AND PLEURA: Persistent bilateral pleural effusions right greater than left. Underly ing atelectasis cannot be excluded. MEDIASTINUM AND HILAR STRUCTURES: No masses. Contour normal. HEART AND VASCULAR STRUCTURES: Heart remains enlarged. No overt failure. BONES: No acute findings. HARDWARE: Loop recorder remains in place on the left. OTHER: No other significant finding. IMPRESSION: Persistent bilateral pleural effusion underlying atelectasis cannot be excluded. Stable cardiomegaly. TECHNICAL DOCUMENTATION: JOB ID: [id number] 2010 Friday- All Rights Reserved Reading location - IP/workstation name: [email or web address]
[2020-05-16 15:23] LABS: TROPONIN I 0.037 ng/mL
--- NOTE | 2020-05-16 16:04 | ER Document Report ---
Entered by ISA KAY SCRIBE 05/16/20 1441 Acting as scribe for:GURPREET HERNANDEZ MD ED General - General Chief Complaint: Shortness Of Breath Stated Complaint: SHORTNESS OF BREATH Time Seen by Provider: 05/16/20 14:32 Primary Care Provider: LARRY ARRIAZA DO [Primary Care Provider] - Follow up as needed Mode of Arrival: Ambulatory Information source: Patient Notes: This 49 year old female patient presents to the emergency department today with complaints of shortness of breath and generalized swelling throughout her entire body. Patient is a poor historian at baseline and she is speaking in 1-2 word sentences so history is limited. She reports that her son is that person who administers her medication and she states he has been giving them to her daily. She is unable to name what medications she currently takes. TRAVEL OUTSIDE OF THE [place] IN LAST 30 DAYS: No - Related Data Allergies/Adverse Reactions: No Known Allergies Allergy (Verified 08/08/19 14:00) Past Medical History - General Information source: Patient - Social History Smoking Status: Unknown if Ever Smoked Cigarette use (# per day): No Frequency of alcohol use: None Drug Abuse: None Lives with: Family Family History: Reviewed & Not Pertinent, DM, Other - Past Medical History Cardiac Medical History: Reports: Hx Congestive Heart Failure, Hx Coronary Artery Disease, Hx Heart Attack, Hx Hypercholesterolemia, Hx Hypertension, Hx Heart Murmur Pulmonary Medical History: Neurological Medical History: Reports: Hx Cerebrovascular Accident, Hx Seizures Endocrine Medical History: Reports: Hx Diabetes Mellitus Type 2 Past Surgical History: Reports: Hx Cardiac Catheterization, Hx Cholecystectomy, Hx Coronary Stent - Immunizations Hx Diphtheria, Pertussis, Tetanus Vaccination: Yes Review of Systems - Review of Systems Constitutional: No symptoms reported EENT: No symptoms reported Cardiovascular: No symptoms reported Respiratory: See HPI, Short of breath Gastrointestinal: No symptoms reported Genitourinary: No symptoms reported Female Genitourinary: No symptoms reported Musculoskeletal: See HPI, Other - generalized edema Skin: No symptoms reported Hematologic/Lymphatic: No symptoms reported Neurological/Psychological: No symptoms reported -: Yes All other systems reviewed and negative Physical Exam - Vital signs Vitals: Resp Pulse Ox 30 H 99 05/16/20 14:12 05/16/20 14:12 - Notes Notes: Physical Exam: General: Alert, generalized whole body edema consistent with anasarca. HEENT: Normocephalic. Atraumatic. PERRL. Extraocular movements intact. Oropharynx clear. Neck: Supple. Non-tender. Respiratory: Mild respiratory distress. Very shallow breaths, mildly tachypneic. One to two word sentences. Cardiovascular: Tachycardic in the low 100s, normal rhythm. Abdominal: Obese. Protuberant firm abdomen with diffusely spread induration of the soft tissues. Non-tender. Normal Bowel Sounds. Back: No gross abnormalities. Extremities: Upper extremities: Significant edema. Extremities are very tense due to edema. Lower extremities: Signifcant edema. Extremities are very tense due to edema. Feet are blueish purple and very cold to touch. Neurological: Normal cognition. AAOx4. Normal speech. Psychological: Normal affect. Normal Mood. Skin: Warm. Dry. Normal color. Course - Vital Signs Vital signs: Temp Pulse Resp BP Pulse Ox 98 F 24 H 186/92 H 99 05/16/20 14:46 05/16/20 19:00 05/16/20 15:00 05/16/20 19:00 - Laboratory Result Diagrams: 05/16/20 14:30 05/16/20 17:44 Laboratory results interpreted by me: 05/16/20 05/16/20 05/16/20 14:30 14:30 14:30 Hgb 10.8 L Hct 34.1 L MCH 25.3 L MCHC 31.6 L RDW 20.3 H PT Total Bilirubin Direct Bilirubin Alkaline Phosphatase Creatine Kinase 203 H NT-Pro-B Natriuret Pep 4030 H Albumin Urine Protein Urine Blood Urine Bilirubin Urine Urobilinogen 05/16/20 05/16/20 05/16/20 15:37 17:44 17:55 Hgb Hct MCH MCHC RDW PT 16.5 H Total Bilirubin 3.1 H Direct Bilirubin 1.6 H Alkaline Phosphatase 155 H Creatine Kinase NT-Pro-B Natriuret Pep Albumin 3.1 L Urine Protein >=500 H Urine Blood SMALL H Urine Bilirubin SMALL H Urine Urobilinogen 4.0 H - Diagnostic Test Radiology reviewed: Image reviewed, Reports reviewed - Chest x-ray shows persistent bilateral pleural effusion, underlying atelectasis cannot be excluded. Stable cardiomegaly. Critical Care Note - Critical Care Note Total time excluding time spent on procedures (mins): 40 Comments: At least 40 minutes spent evaluating the patient, reviewing prior records of multiple admissions for anasarca and congestive heart failure. Evaluating treatment responses. Making phone calls to the hospitalist service to effect an admission. Discharge - Discharge Clinical Impression: Anasarca, Morbid obesity with BMI of 40.0-44.9, adult, Elevated blood pressure reading, Tachypnea, Peripheral vascular disease of lower extremity Proteinuria Qualifiers: Proteinuria type: unspecified Qualified Code(s): R80.9 - Proteinuria, unspecified Iron deficiency anemia Qualifiers: Iron deficiency anemia type: unspecified iron deficiency Qualified Code(s): D50.9 - Iron deficiency anemia, unspecified Dyspnea Qualifiers: Dyspnea type: shortness of breath Qualified Code(s): R06.02 - Shortness of breath Condition: Fair Disposition: ADMITTED INPATIENT Admitting Provider: [facility] Admitted: Telemetry Referrals: LARRY ARRIAZA DO [Primary Care Provider] - Follow up as needed I personally performed the services described in the documentation, reviewed and edited the documentation which was dictated to the scribe in my presence, and it accurately records my words and actions.
[2020-05-16 16:19] LABS: APPEARANCE,URINE SLIGHTLY-CLOUDY; BILIRUBIN,URINE SMALL (NEGATIVE); CALCIUM OXALATE CRYSTALS,URINE MODERATE /HPF; COLOR,URINE AMBER; GLUCOSE, URINE NEGATIVE (NEGATIVE); KETONES,URINE NEGATIVE (NEGATIVE); LEUKOCYTE ESTERASE,URINE NEGATIVE (NEGATIVE); NITRITE,URINE NEGATIVE (NEGATIVE); PROTEIN,URINE >=500 mg/dL (NEGATIVE)
--- NOTE | 2020-05-16 17:47 | ER Document Report ---
Doctor's Note Notes: Asked to assist with vascular access. Patient had consented for central line placement. While assessing anatomy of neck, patient had very large external jugular veins which crossed the area of the neck where the needle would be inserted b/l. Was able to place the 18-gauge IV into left external jugular.
[2020-05-16 18:27] LABS: INTERNATIONAL RATION (INR) 1.31; PROTHROMBIN TIME 16.5 SEC (11.4-15.4)
[2020-05-16 18:30] LABS: ALBUMIN 3.1 g/dL (3.5-5.0); ALKALINE PHOSPHATASE 155 U/L (38-126); ANION GAP 7 (5-19); ASPARTATE AMINO TRANSFERASE 30 U/L (14-36); BILIRUBIN,DIRECT 1.6 mg/dL (0.0-0.4); BILIRUBIN,TOTAL 3.1 mg/dL (0.2-1.3); BLOOD UREA NITROGEN 14 mg/dL (7-20); CALCIUM 8.6 mg/dL (8.4-10.2); CARBON DIOXIDE 27 mmol/L (22-30); CHLORIDE 105 mmol/L (98-107); GLUCOSE 107 mg/dL (75-110); POTASSIUM 3.7 mmol/L (3.6-5.0); TOTAL PROTEIN 8.1 g/dL (6.3-8.2)
--- NOTE | 2020-05-16 19:29 | EKG REPORT ---
SEVERITY:- ABNORMAL ECG - SINUS TACHYCARDIA LOW VOLTAGE THROUGHOUT BORDERLINE R WAVE PROGRESSION, ANTERIOR LEADS BORDERLINE T ABNORMALITIES, DIFFUSE LEADS : Confirmed by: Celine Dorsey MD 16-May-2020 19:28:07
[2020-05-16] MEDS ORDERED: ONDANSETRON HCL INJ/PF 4 MG/2 ML SDV IV PRN (20:05)
--- NOTE | 2020-05-16 20:21 | PDOC H&P ---
History of Present Illness Admission Date/PCP: 05/16/20 20:02 LARRY ARRIAZA DO Patient complains of: Shortness of breath, generalized body swelling History of Present Illness: PHILLIP DORANTES is a 49 year old female with a history of combined systolic and diastolic heart failure, type 2 diabetes, history of CVA with right-sided hemiplegia, hypertension, seizure disorder, obesity and medication noncompliance now presents to the ER with worsening shortness of breath and generalized body swelling. Patient is a poor historian and is unable to remember the details but she states that over the past few months she has been progressively getting winded and in the last week the shortness of breath got really worse with associated orthopnea. She states that she is wheelchair-bound at home but unable to specify for how long has she been on a wheelchair. She denies any chest pain, cough, fever, chills, nausea, vomiting, abdominal pain, diarrhea, dysuria, urgency or frequency of urination. Patient also reports that her son gives her her daily medication but does not know what medications she is on or if she has been missing doses. She denies any recent sick contact history. Past Medical History Cardiac Medical History: Reports: Congestive Heart Failure, Coronary Artery Disease, Myocardial Infarction, Hyperlipidema, Hypertension, Heart Murmur Pulmonary Medical History: Denies: Asthma, Chronic Obstructive Pulmonary Disease (COPD) Neurological Medical History: Reports: Seizures Endocrine Medical History: Reports: Diabetes Mellitus Type 2 Denies: Diabetes Mellitus Type 1, Hyperthyroidism, Hypothyroidism GI Medical History: Denies: Cirrhosis, Hepatitis Musculoskeltal Medical History: Denies: Arthritis, Gout Skin Medical History: Denies: Eczema, Psoriasis Psychiatric Medical History: Denies: Depression Hematology: Denies: Anemia, Bleeding Tendencies Past Surgical History Past Surgical History: Reports: Cardiac Catheterization, Cholecystectomy, Han nary Stent Social History Information Source: Patient Lives with: Family Smoking Status: Unknown if Ever Smoked Frequency of Alcohol Use: None Hx Recreational Drug Use: No Drugs: None Hx Prescription Drug Abuse: No - Advance Directive Resuscitation Status: Do Not Resuscitate Family History Family History: Reviewed & Not Pertinent, DM, Other Parental Family History Reviewed: Yes Children Family History Reviewed: Yes Sibling(s) Family History Reviewed.: Yes Medication/Allergy Home Medications: Atorvastatin Calcium [Lipitor 40 mg Tablet] 40 mg PO QHS 30 Days #30 tablet 12/24/19 Lisinopril [Zestril] 40 mg PO BID 30 Days #60 tablet 12/24/19 Magnesium Oxide [Mag-Oxide Magnesium] 400 mg PO BID 7 Days #14 tablet 12/24/19 Metformin HCl [Glucophage] 1,000 mg PO BID 30 Days #60 tablet 12/24/19 Metoprolol Succinate [Toprol Xl] 100 mg PO DAILY 30 Days #30 tab.er.24h 12/24/19 Spironolactone [Aldactone 25 mg Tablet] 25 mg PO BID 30 Days #60 tablet 12/24/19 Torsemide [Demadex 20 mg Tablet] 20 mg PO DAILY 30 Days #30 tablet 12/24/19 Ciprofloxacin HCl [Cipro 500 mg Tablet] 500 mg PO BID #10 tablet 01/26/20 Levetiracetam [Keppra 500 mg Tablet] 500 mg PO Q12 #15 tablet 01/26/20 Lisinopril [Zestril] 2.5 mg PO QAM 30 Days #30 tablet 02/04/20 Allergies/Adverse Reactions: No Known Allergies Allergy (Verified 08/08/19 14:00) Review of Systems Constitutional: PRESENT: fatigue, weakness, weight gain. ABSENT: anorexia, chills, fever(s), headache(s), night sweats, weight loss Eyes: ABSENT: visual disturbances Ears: ABSENT: hearing changes Nose, Mouth, and Throat: ABSENT: headache(s), mouth pain, sore throat Cardiovascular: PRESENT: as per HPI Respiratory: PRESENT: as per HPI Gastrointestinal: ABSENT: abdominal pain, constipation, diarrhea, hematemesis, hematochezia, nausea, vomiting Genitourinary: ABSENT: dysuria, hematuria Musculoskeletal: ABSENT: joint swelling Integumentary: ABSENT: rash, wounds Neurological: ABSENT: abnormal speech, confusion, dizziness, focal weakness, syncope Endocrine: ABSENT: cold intolerance, heat intolerance, polydipsia, polyuria Hematologic/Lymphatic: ABSENT: easy bleeding, easy bruising Physical Exam Vital Signs: Temp Pulse Resp BP Pulse Ox 98 F 24 H 186/92 H 99 05/16/20 14:46 05/16/20 19:00 05/16/20 15:00 05/16/20 19:00 Intake & Output 05/15/20 05/16/20 05/17/20 06:59 06:59 06:59 Weight 109.9 kg Additional comments: GENERAL APPEARANCE: Alert and oriented x3, mild respiratory distress HEENT: Normocephalic and atraumatic. No scleral icterus. Moist oral mucosa NECK: Supple. No lymphadenopathy or tenderness. No carotid bruit. No JVD CHEST: Symmetric. Nontender to palpation. LUNGS: Tachypneic. Relatively decreased air entry bilaterally on lower lung moss. No wheezing or crackles HEART: Regular rate and rhythm with normal S1 and S2. No murmurs, gallops, or rubs. ABDOMEN: Flat, soft, active bowel sounds, no direct or rebound tenderness. No o rganomegaly detected. No CVA tenderness EXTREMITIES: No cyanosis, clubbing, or edema. MUSCULOSKELETAL: No deformity, atrophy or swelling noted PSYCHIATRIC: Recent and remote memory is intact. Appropriate mood and affect. SKIN: Warm, dry, and well perfused. No lesions or rashes are noted. NEUROLOGIC: Has right-sided hemiplegia. Sensation intact. Cranial nerves II to XII grossly intact Results Laboratory Results: 05/16/20 14:30 05/16/20 17:44 05/16/20 05/16/20 05/16/20 14:30 14:30 14:30 WBC 4.3 RBC 4.25 Hgb 10.8 L Hct 34.1 L MCV 80 MCH 25.3 L MCHC 31.6 L RDW 20.3 H Plt Count 239 Seg Neutrophils % 65.9 Sodium Cancelled Potassium Cancelled Chloride Cancelled Carbon Dioxide Cancelled Anion Gap Cancelled BUN Cancelled Creatinine Cancelled Est GFR ( Amer) Cancelled Est GFR (Non-Af Amer) Cancelled Glucose Cancelled Calcium Cancelled Magnesium 1.7 Total Bilirubin Cancelled AST Cancelled Alkaline Phosphatase Cancelled Total Protein Cancelled Albumin Cancelled TSH Urine Color Urine Appearance Urine pH Ur Specific [place] Urine Protein Urine Glucose (UA) Urine Ketones Urine Blood Urine Nitrite Ur Leukocyte Esterase Urine WBC (Auto) Urine RBC (Auto) 05/16/20 05/16/20 05/16/20 14:30 15:37 16:15 WBC RBC Hgb Hct MCV MCH MCHC RDW Plt Count Seg Neutrophils % Sodium Cancelled Potassium Cancelled Chloride Cancelled Carbon Dioxide Cancelled Anion Gap Cancelled BUN Cancelled Creatinine Cancelled Est GFR ( Amer) Cancelled Est GFR (Non-Af Amer) Cancelled Glucose Cancelled Calcium Cancelled Magnesium Total Bilirubin Cancelled AST Cancelled Alkaline Phosphatase Cancelled Total Protein Cancelled Albumin Cancelled TSH Cancelled Urine Color TERESA Urine Appearance SLIGHTLY-CLOUDY Urine pH 5.0 Ur Specific [place] 1.030 Urine Protein >=500 H Urine Glucose (UA) NEGATIVE Urine Ketones NEGATIVE Urine Blood SMALL H Urine Nitrite NEGATIVE Ur Leukocyte Esterase NEGATIVE Urine WBC (Auto) 3 Urine RBC (Auto) 4 05/16/20 05/16/20 16:15 17:44 WBC RBC Hgb Hct MCV MCH MCHC RDW Plt Count Seg Neutrophils % Sodium 139.1 Potassium 3.7 Chloride 105 Carbon Dioxide 27 Anion Gap 7 BUN 14 Creatinine 0.58 Est GFR ( Amer) > 60 Est GFR (Non-Af Amer) Glucose 107 Calcium 8.6 Magnesium Total Bilirubin 3.1 H AST 30 Alkaline Phosphatase 155 H Total Protein 8.1 Albumin 3.1 L TSH 4.55 Urine Color Urine Appearance Urine pH Ur Specific [place] Urine Protein Urine Glucose (UA) Urine Ketones Urine Blood Urine Nitrite Ur Leukocyte Esterase Urine WBC (Auto) Urine RBC (Auto) 05/16/20 05/16/20 14:30 14:30 Creatine Kinase 203 H Troponin I 0.037 NT-Pro-B Natriuret Pep 4030 H Impressions: Chest X-Ray 05/16/20 14:16 IMPRESSION: Persistent bilateral pleural effusion underlying atelectasis cannot be excluded. Stable cardiomegaly. Assessment and Plan - Diagnosis (1) Acute combined systolic (congestive) and diastolic (congestive) heart fail ure Is this a current diagnosis for this admission?: Yes Plan: Patient presents with shortness of breath, orthopnea and generalized body swelling BNP was elevated at 4030 Chest x-ray shows cardiomegaly with bilateral pleural effusion Echocardiogram in July 2019 showed left ventricular ejection fraction of 30% with grade 2 diastolic dysfunction with estimated right ventricular systolic pressure of 50-60 mmHg Started on Lasix 40 mg IV twice daily Strict I&O's, daily weight, fluid restriction Intranasal oxygen to maintain saturation above 94% (2) Anasarca Is this a current diagnosis for this admission?: Yes Plan: Likely due to acute decompensated combined systolic and diastolic heart failure Patient also has significant proteinuria with spot urine protein to creatinine ratio showing 2.6 g/day likely due to diabetic nephropathy Kidney function and EGFR within the normal limit Continue management as stated above under heart failure Patient is on lisinopril for proteinuria May consider nephrology consult if worsening (3) Hypertension Is this a current diagnosis for this admission?: Yes Plan: Continue home medications including lisinopril and metoprolol On low-sodium diet (4) Proteinuria Qualifiers: Proteinuria type: unspecified Qualified Code(s): R80.9 - Proteinuria, unspecified Is this a current diagnosis for this admission?: Yes Plan: Patient has generalized anasarca concerning for possible nephrotic/nephritic causes Urine analysis was positive for proteinuria and hematuria but no casts Likely due to diabetic nephropathy EGFR within the normal limit Continue lisinopril (5) Elevated troponin Is this a current diagnosis for this admission?: Yes Plan: Troponin mildly elevated at 0.037 Patient denies any chest pain Likely type II non-STEMI due to hypoxia and heart failure EKG shows low voltage with sinus tachycardia and SVEs Continue aspirin, atorvastatin Continue trending troponins every 6 hourly (6) Diabetes mellitus type 2 in obese Is this a current diagnosis for this admission?: Yes Plan: Patient on Metformin 1000 mg twice daily at home We will hold Metformin for now Started on Accu-Chek, hypoglycemia protocol with sliding scale insulin and diabetic diet (7) History of CVA (cerebrovascular accident) Is this a current diagnosis for this admission?: Yes Plan: Patient has residual right-sided weakness Continue aspirin and atorvastatin (8) Morbid obesity with BMI of 40.0-44.9, adult Is this a current diagnosis for this admission?: Yes Plan: BMI on this encounter 40.8 Volume overload possibly a contributing factor Patient is currently being diuresed - Time Time Spent with patient: 35 or more minutes Total Critical Time (Minutes): 45 Medications reviewed and adjusted accordingly: Yes Anticipated Discharge Disposition: [facility] Facility Anticipated Discharge Timeframe: within 72 hours - Inpatient Certification Based on my medical assessment, after consideration of the patient's com orbidities, presenting symptoms, or acuity I expect that the services needed warrant INPATIENT care.: Yes I certify that my determination is in accordance with my understanding of Medicare's requirements for reasonable and necessary INPATIENT services [42 CFR 412.3e].: Yes Medical Necessity: Significant Comorbidiites Make Outpatient Treatment Too Risky, Need Close Monitoring Due to Risk of Patient Decompensation, Need For Continuous Telemetry Monitoring, Risk of Complication if Not Cared For in Hospital Post Hospital Care: D/C or Transfer Summary
[2020-05-16 22:05] LABS: URINE CREATININE 10.7 mg/dL (15-278); URINE PROTEIN 27.5 mg/dL (<12)
[2020-05-16] MEDS: ATORVASTATIN CALCIUM 40 MG TABLET PO SCH (23:44)
[2020-05-16] MEDS: FAMOTIDINE 20 MG TABLET PO SCH (23:44)
[2020-05-16] MEDS: SPIRONOLACTONE 25 MG TABLET PO SCH (23:45)
[2020-05-16] MEDS: FUROSEMIDE INJ/PF 40 MG/4 ML SDV IV SCH (23:45)
[2020-05-16] MEDS: LEVETIRACETAM 500 MG TABLET PO SCH (23:45)
[2020-05-17] MEDS ORDERED: DEXTROSE 40% GEL 15 GM TUBE PO PRN ×2 (00:43)
[2020-05-17] MEDS ORDERED: DEXTROSE 50%-WATER 25 GM/50 ML DISP.SYRIN IV PRN ×2 (00:43)
[2020-05-17] MEDS ORDERED: GLUCAGON,HUMAN RECOMB 1 MG INJ IM PRN (00:43)
[2020-05-17] MEDS: INSULIN REG, HUMAN 100 UNIT/ML 3 ML VIAL (PYX) SUBCUT SCH ×4 (07:48→22:32)
[2020-05-17 08:19] LABS: ALKALINE PHOSPHATASE 130 U/L (38-126); ANION GAP 9 (5-19); ASPARTATE AMINO TRANSFERASE 32 U/L (14-36); BILIRUBIN,DIRECT 2.1 mg/dL (0.0-0.4); BILIRUBIN,TOTAL 3.4 mg/dL (0.2-1.3); BLOOD UREA NITROGEN 13 mg/dL (7-20); CALCIUM 8.5 mg/dL (8.4-10.2); CARBON DIOXIDE 27 mmol/L (22-30); CHLORIDE 104 mmol/L (98-107); GLUCOSE 100 mg/dL (75-110); TOTAL PROTEIN 7.6 g/dL (6.3-8.2); TRIGLYCERIDES 76 mg/dL (<150)
[2020-05-17 08:20] LABS: CHOLESTEROL 127.46 mg/dL (0-200)
[2020-05-17] MEDS: ACETAMINOPHEN 325 MG TABLET PO PRN (08:26)
[2020-05-17 08:30] LABS: DIRECT LDL 68 mg/dL (<100)
[2020-05-17] MEDS: ENOXAPARIN SODIUM INJ 40 MG/0.4 ML DISP.SYRIN SUBCUT SCH (11:04)
[2020-05-17] MEDS: LEVETIRACETAM 500 MG TABLET PO SCH ×2 (11:04→22:11)
[2020-05-17] MEDS: FUROSEMIDE INJ/PF 40 MG/4 ML SDV IV SCH ×2 (11:04→22:33)
[2020-05-17] MEDS: ASPIRIN 81 MG TABLET, CHEWABLE PO SCH (11:05)
[2020-05-17] MEDS: SPIRONOLACTONE 25 MG TABLET PO SCH ×2 (11:05→22:11)
[2020-05-17] MEDS: LISINOPRIL 5 MG TABLET PO SCH (11:05)
[2020-05-17] MEDS: METOPROLOL SUCCINATE 50 MG TAB.SR.24H PO SCH (11:05)
[2020-05-17] MEDS: FAMOTIDINE 20 MG TABLET PO SCH ×2 (11:07→22:11)
[2020-05-17] MEDS ORDERED: POTASSIUM CHLORIDE 10 MEQ TABLET.ER PO ONE (14:30)
--- NOTE | 2020-05-17 18:50 | PDOC PROGRESS REPORT ---
Subjective Date:: 05/17/20 Subjective:: PHILLIP DORANTES is a 49 year old female with a history of combined systolic and diastolic heart failure, type 2 diabetes, history of CVA with right-sided hemiplegia, hypertension, seizure disorder, obesity and medication noncompliance who was admitted 05/16/20 with acute on chronic CHF exacerbation. Patient was seen on afternoon rounds. She is found resting in bed, comfortably, on supplemental oxygen by nasal cannula. She was sleeping but woke easily when I said her name. She tells me that she is tired. She states that her breathing is slightly better, she does continue to have generalized discomfort related to her edema. She then quickly falls back to sleep. Upon attempting to rewake her, she waved me away and turned her head. She does appear to be comfortable and is not noted to be in any acute distress. ROS is otherwise limited. No concerns per nursing. Reason For Visit: ANASARCA,SHORTNESS OF BREATH Physical Exam Vital Signs: Temp Pulse Resp BP Pulse Ox 97.8 F 90 18 128/85 H 100 05/17/20 17:01 05/17/20 17:01 05/17/20 17:01 05/17/20 17:01 05/17/20 17:01 Intake & Output 05/16/20 05/17/20 05/18/20 06:59 06:59 06:59 Intake Total 250 599 Output Total 4200 275 Balance -3950 324 Weight 101.2 kg General appearance: PRESENT: no acute distress, obese, well-developed, well- nourished, other - Chronically ill-appearing Head exam: PRESENT: atraumatic, normocephalic Eye exam: PRESENT: conjunctiva pink, EOMI, PERRLA. ABSENT: scleral icterus Mouth exam: PRESENT: moist, tongue midline Teeth exam: PRESENT: poor dentation Respiratory exam: PRESENT: clear to auscultation ac - Anteriorly, symmetrical, unlabored, other - Supplemental oxygen. ABSENT: rales, rhonchi, wheezes Cardiovascular exam: PRESENT: RRR. ABSENT: diastolic murmur, rubs, systolic murmur Pulses: PRESENT: normal dorsalis pedis pul Vascular exam: PRESENT: normal capillary refill GI/Abdominal exam: PRESENT: normal bowel sounds, soft. ABSENT: distended, guarding, mass, organolmegaly, rebound, tenderness Rectal exam: PRESENT: deferred Gentrourinary exam: PRESENT: indwelling catheter Extremities exam: PRESENT: full ROM, +2 edema - Pitting edema BLE, trace edema BUE. ABSENT: calf tenderness, clubbing, pedal edema Neurological exam: PRESENT: alert, awake, oriented to person, oriented to place, oriented to time, oriented to situation, CN II-XII grossly intact. ABSENT: motor sensory deficit Psychiatric exam: PRESENT: appropriate affect, normal mood. ABSENT: homicidal i deation, suicidal ideation Skin exam: PRESENT: dry, intact, warm. ABSENT: cyanosis, rash Results Laboratory Results: 05/16/20 14:30 05/17/20 06:37 05/17/20 06:37 Sodium 140.3 Potassium 3.0 L* Chloride 104 Carbon Dioxide 27 Anion Gap 9 BUN 13 Creatinine 0.59 Est GFR ( Amer) > 60 Glucose 100 Calcium 8.5 Total Bilirubin 3.4 H AST 32 Alkaline Phosphatase 130 H Total Protein 7.6 Albumin 3.0 L Triglycerides 76 Cholesterol 127.46 LDL Cholesterol Direct 68 VLDL Cholesterol 15.0 HDL Cholesterol 36 L 05/16/20 05/16/20 05/16/20 14:30 14:30 22:19 Creatine Kinase 203 H Troponin I 0.037 0.039 NT-Pro-B Natriuret Pep 4030 H 05/17/20 06:37 Creatine Kinase Troponin I 0.031 NT-Pro-B Natriuret Pep Impressions: Chest X-Ray 05/16/20 14:16 IMPRESSION: Persistent bilateral pleural effusion underlying atelectasis cannot be excluded. Stable cardiomegaly. Assessment and Plan - Diagnosis (1) Acute combined systolic (congestive) and diastolic (congestive) heart failure Is this a current diagnosis for this admission?: Yes Plan: Patient presents with shortness of breath, orthopnea and generalized body swelling BNP was elevated at 4030 Chest x-ray shows cardiomegaly with bilateral pleural effusion Echocardiogram in July 2019 showed left ventricular ejection fraction of 30% with grade 2 diastolic dysfunction with estimated right ventricular systolic pressure of 50-60 mmHg Previously followed by Dr. Webb; consider cardiology consultation Supplemental oxygen as needed. Continue on Lasix 40 mg IV twice daily Continue daily aspirin and statin therapy. Continue lisinopril, Toprol XL, and spironolactone. Cardiac diet w/ fluid restrictions. Strict I&O's, daily weight, fluid restriction (2) Anasarca Is this a current diagnosis for this admission?: Yes Plan: Likely due to acute decompensated combined systolic and diastolic heart failure Patient also has significant proteinuria with spot urine protein to creatinine ratio showing 2.6 g/day likely due to diabetic nephropathy Kidney function and EGFR within the normal limit Continue management as stated above under heart failure Patient is on lisinopril for proteinuria May consider nephrology consult if worsening (3) Diabetes mellitus type 2 in obese Is this a current diagnosis for this admission?: Yes Plan: A1c 6.8% Patient on Metformin 1000 mg twice daily at home We will hold Metformin for now Started on Accu-Chek, hypoglycemia protocol with sliding scale insulin and diabetic diet loom tuner and patient educator are consulted. (4) Elevated troponin Is this a current diagnosis for this admission?: Yes Plan: Mildly elevated, but flat; troponin 0.037-> 0.031 Patient denies any chest pain Likely type II non-STEMI due to hypoxia and heart failure EKG shows low voltage with sinus tachycardia and SVEs Continue aspirin, atorvastatin (5) Hypertension Is this a current diagnosis for this admission?: Yes Plan: Blood pressures are currently acceptable. Antihypertensives as above. On low-sodium diet (6) Morbid obesity with BMI of 40.0-44.9, adult Is this a current diagnosis for this admission?: Yes Plan: BMI on this encounter 40.8 Volume overload possibly a contributing factor Patient is currently being diuresed Continue consistent carb/cardiac diet. Dietary compliance and lifestyle modification will be encouraged. Registered dietitian consulted. (7) Proteinuria Qualifiers: Proteinuria type: unspecified Qualified Code(s): R80.9 - Proteinuria, unspecified Is this a current diagnosis for this admission?: Yes Plan: Patient has generalized anasarca concerning for possible nephrotic/nephritic causes Urine analysis was positive for proteinuria and hematuria but no casts Likely due to diabetic nephropathy EGFR within the normal limit Continue lisinopril (8) Noncompliance with medication regimen Is this a current diagnosis for this admission?: Yes Plan: Education. Registered dietitian, patient educator, transitions learning coach, and project planner consulted. (9) History of CVA (cerebrovascular accident) Is this a current diagnosis for this admission?: Yes Plan: Patient has residual right-sided weakness Continue aspirin and atorvastatin (10) Hypokalemia Is this a current diagnosis for this admission?: Yes Plan: Likely r/t furosemide use. PO replacement today Follow up chemistry - Time Time Spent with patient: 35 or more minutes Medications reviewed and adjusted accordingly: Yes Anticipated Discharge Disposition: Home with Home Health Anticipated Discharge Timeframe: >72 hrs
[2020-05-17] MEDS: ATORVASTATIN CALCIUM 40 MG TABLET PO SCH (22:11)
[2020-05-18] MEDS: ACETAMINOPHEN 325 MG TABLET PO PRN (04:08)
[2020-05-18 05:37] LABS: HEMATOCRIT 34.1 % (36.0-47.0); HEMOGLOBIN 10.8 g/dL (12.0-15.5); MEAN CORPUSCULAR HEMOGLOBIN 25.5 pg (27.0-33.4); MEAN CORPUSCULAR HGB CONC 31.6 g/dL (32.0-36.0); MEAN CORPUSCULAR VOLUME 81 fl (80-97); PLATELET COUNT 252 10^3/uL (150-450); RED BLOOD COUNT 4.23 10^6/uL (3.72-5.28); RED CELL DISTRIBUTION WIDTH 19.8 % (11.5-14.0); WHITE BLOOD COUNT 4.6 10^3/uL (4.0-10.5)
[2020-05-18 06:11] LABS: ANION GAP 9 (5-19); BLOOD UREA NITROGEN 17 mg/dL (7-20); CALCIUM 8.6 mg/dL (8.4-10.2); CARBON DIOXIDE 27 mmol/L (22-30); CHLORIDE 105 mmol/L (98-107); GLUCOSE 100 mg/dL (75-110); POTASSIUM 3.7 mmol/L (3.6-5.0)
[2020-05-18] MEDS: INSULIN REG, HUMAN 100 UNIT/ML 3 ML VIAL (PYX) SUBCUT SCH ×5 (07:30→22:14)
[2020-05-18] MEDS: ENOXAPARIN SODIUM INJ 40 MG/0.4 ML DISP.SYRIN SUBCUT SCH (10:31)
[2020-05-18] MEDS: LISINOPRIL 5 MG TABLET PO SCH (10:31)
[2020-05-18] MEDS: LEVETIRACETAM 500 MG TABLET PO SCH ×2 (10:31→22:08)
[2020-05-18] MEDS: ASPIRIN 81 MG TABLET, CHEWABLE PO SCH (10:31)
[2020-05-18] MEDS: METOPROLOL SUCCINATE 50 MG TAB.SR.24H PO SCH (10:31)
[2020-05-18] MEDS: FAMOTIDINE 20 MG TABLET PO SCH ×2 (10:31→22:08)
[2020-05-18] MEDS: SPIRONOLACTONE 25 MG TABLET PO SCH ×2 (10:31→22:08)
[2020-05-18] MEDS: FUROSEMIDE INJ/PF 40 MG/4 ML SDV IV SCH ×2 (10:32→22:09)
--- NOTE | 2020-05-18 16:10 | PDOC PROGRESS REPORT ---
Subjective Date:: 05/18/20 Subjective:: PHILLIP DORANTES is a 49 year old female with a history of combined systolic and diastolic heart failure, type 2 diabetes, history of CVA with right-sided hemiplegia, hypertension, seizure disorder, obesity and medication noncompliance who was admitted 05/16/20 with acute on chronic CHF exacerbation. Patient was seen on afternoon rounds. She is found resting in bed, comfortably, on room air while eating her lunch. She states she is feeling much better. Denies dyspnea. Generalized discomfort related to her edema is also improved. She states that she sees Dr. Webb but can't recall when she saw him last of if he has made any recent changes to her medications. She denies fever, chills, chest pain, palpitations, dyspnea at rest, cough, abdominal pain, nausea vomiting and diarrhea. She reports good appetite. She confirms that she is wheelchair-bound at baseline and states that her son picks her up to transfer. She has no questions or concerns at this time. No concerns per nursing. Reason For Visit: ANASARCA,SHORTNESS OF BREATH Physical Exam Vital Signs: Temp Pulse Resp BP Pulse Ox 97.3 F 82 18 142/93 H 100 05/18/20 07:45 05/18/20 11:16 05/18/20 11:16 05/18/20 11:16 05/18/20 11:16 Intake & Output 05/17/20 05/18/20 05/19/20 06:59 06:59 06:59 Intake Total 250 1489 Output Total 4200 775 Balance -3950 714 Weight 101.2 kg 101.5 kg 101.5 kg General appearance: PRESENT: no acute distress, cooperative, obese, well- developed, well-nourished, other - chronically ill appearing Head exam: PRESENT: atraumatic, normocephalic Eye exam: PRESENT: conjunctiva pink, EOMI, PERRLA. ABSENT: scleral icterus Mouth exam: PRESENT: moist, tongue midline Teeth exam: PRESENT: poor dentation Respiratory exam: PRESENT: clear to auscultation ac - anterior, decreased breath sounds - throughout r/t body habitus, positioning, and inspiratory effort, symmetrical, unlabored, other - room air. ABSENT: rales, rhonchi, wheezes Cardiovascular exam: PRESENT: RRR. ABSENT: diastolic murmur, rubs, systolic murmur Pulses: PRESENT: normal dorsalis pedis pul Vascular exam: PRESENT: normal capillary refill Gentrourinary exam: PRESENT: indwelling catheter Extremities exam: PRESENT: full ROM, +2 edema - pitting edema BLE, trace BUE. ABSENT: calf tenderness, clubbing, pedal edema Neurological exam: PRESENT: alert, awake, oriented to person, oriented to place, oriented to time, oriented to situation, CN II-XII grossly intact. ABSENT: motor sensory deficit Psychiatric exam: PRESENT: appropriate affect, normal mood. ABSENT: homicidal ideation, suicidal ideation Skin exam: PRESENT: dry, intact, warm. ABSENT: cyanosis, rash Results Laboratory Results: 05/18/20 04:50 05/18/20 04:50 05/18/20 05/18/20 04:50 04:50 WBC 4.6 RBC 4.23 Hgb 10.8 L Hct 34.1 L MCV 81 MCH 25.5 L MCHC 31.6 L RDW 19.8 H Plt Count 252 Sodium 141.1 Potassium 3.7 Chloride 105 Carbon Dioxide 27 Anion Gap 9 BUN 17 Creatinine 0.91 Est GFR ( Amer) > 60 Glucose 100 Calcium 8.6 05/16/20 05/16/20 05/16/20 14:30 14:30 22:19 Creatine Kinase 203 H Troponin I 0.037 0.039 NT-Pro-B Natriuret Pep 4030 H 05/17/20 05/18/20 06:37 04:50 Creatine Kinase Troponin I 0.031 NT-Pro-B Natriuret Pep 3210 H Impressions: Chest X-Ray 05/16/20 14:16 IMPRESSION: Persistent bilateral pleural effusion underlying atelectasis cannot be excluded. Stable cardiomegaly. Assessment and Plan - Diagnosis (1) Acute combined systolic (congestive) and diastolic (congestive) heart failure Is this a current diagnosis for this admission?: Yes Plan: Improved Patient presents with shortness of breath, orthopnea and generalized body swelling BNP was elevated at 4030-> 3200 Chest x-ray shows cardiomegaly with bilateral pleural effusion Echocardiogram in July 2019 showed left ventricular ejection fraction of 30% with grade 2 diastolic dysfunction with estimated right ventricular systolic pressure of 50-60 mmHg Previously followed by Dr. Webb; consider cardiology consultation Supplemental oxygen as needed. Continue on Lasix 40 mg IV twice daily Continue daily aspirin and statin therapy. Continue lisinopril, Toprol XL, and spironolactone. Cardiac diet w/ fluid restrictions. Strict I&O's, daily weight, fluid restriction (2) Anasarca Is this a current diagnosis for this admission?: Yes Plan: Improved on exam. Continues to have +2 pitting edema to BLE, although, not as tight. BUE edema is significantly improved. Likely due to acute decompensated combined systolic and diastolic heart failure Patient also has significant proteinuria with spot urine protein to creatinine ratio showing 2.6 g/day likely due to diabetic nephropathy Kidney function and EGFR within the normal limit Continue management as stated above under heart failure Patient is on lisinopril for proteinuria May consider nephrology consult if worsening (3) Diabetes mellitus type 2 in obese Is this a current diagnosis for this admission?: Yes Plan: A1c 6.8% Patient on Metformin 1000 mg twice daily at home We will hold Metformin for now Started on Accu-Chek, hypoglycemia protocol with sliding scale insulin and diabetic diet thermo cementing folder operator and patient educator are consulted. (4) Elevated troponin Is this a current diagnosis for this admission?: Yes Plan: Mildly elevated, but flat; troponin 0.037-> 0.031 Patient denies any chest pain Likely type II non-STEMI due to hypoxia and heart failure EKG shows low voltage with sinus tachycardia and SVEs Continue aspirin, atorvastatin (5) Hypertension Is this a current diagnosis for this admission?: Yes Plan: Blood pressures are currently acceptable. Antihypertensives as above. On low-sodium diet (6) Morbid obesity with BMI of 40.0-44.9, adult Is this a current diagnosis for this admission?: Yes Plan: BMI on this encounter 40.8 Volume overload possibly a contributing factor Patient is currently being diuresed Continue consistent carb/cardiac diet. Dietary compliance and lifestyle modification will be encouraged. Registered dietitian consulted. (7) Proteinuria Qualifiers: Proteinuria type: unspecified Qualified Code(s): R80.9 - Proteinuria, uns pecified Is this a current diagnosis for this admission?: Yes Plan: Patient has generalized anasarca concerning for possible nephrotic/nephritic causes Urine analysis was positive for proteinuria and hematuria but no casts Likely due to diabetic nephropathy EGFR within the normal limit Continue lisinopril (8) Noncompliance with medication regimen Is this a current diagnosis for this admission?: Yes Plan: Education. Registered dietitian, patient educator, transitions varsity baseball coach, and resource management planner consulted. (9) History of CVA (cerebrovascular accident) Is this a current diagnosis for this admission?: Yes Plan: Patient has residual right-sided weakness Continue aspirin and atorvastatin (10) Hypokalemia Is this a current diagnosis for this admission?: Yes Plan: Resolved. Likely r/t furosemide use. Follow up chemistry - Time Time Spent with patient: 25-34 minutes Medications reviewed and adjusted accordingly: Yes Anticipated Discharge Disposition: Home with Home Health Anticipated Discharge Timeframe: within 72 hours
[2020-05-18] MEDS: ATORVASTATIN CALCIUM 40 MG TABLET PO SCH (22:08)
[2020-05-19 05:04] LABS: HEMATOCRIT 33.2 % (36.0-47.0); HEMOGLOBIN 10.5 g/dL (12.0-15.5); MEAN CORPUSCULAR HEMOGLOBIN 25.5 pg (27.0-33.4); MEAN CORPUSCULAR HGB CONC 31.6 g/dL (32.0-36.0); MEAN CORPUSCULAR VOLUME 81 fl (80-97); PLATELET COUNT 269 10^3/uL (150-450); RED BLOOD COUNT 4.12 10^6/uL (3.72-5.28); RED CELL DISTRIBUTION WIDTH 19.9 % (11.5-14.0); WHITE BLOOD COUNT 5.1 10^3/uL (4.0-10.5)
[2020-05-19 05:30] LABS: ANION GAP 9 (5-19); BLOOD UREA NITROGEN 17 mg/dL (7-20); CALCIUM 8.2 mg/dL (8.4-10.2); CARBON DIOXIDE 26 mmol/L (22-30); CHLORIDE 102 mmol/L (98-107); GLUCOSE 104 mg/dL (75-110); POTASSIUM 3.8 mmol/L (3.6-5.0)
[2020-05-19] MEDS: INSULIN REG, HUMAN 100 UNIT/ML 3 ML VIAL (PYX) SUBCUT SCH ×4 (07:47→22:37)
[2020-05-19] MEDS ORDERED: INFLUENZA QUAD (6MOS+) 2020-21 VAC 0.5 ML SYR IM ONE (08:00)
[2020-05-19] MEDS: LISINOPRIL 5 MG TABLET PO SCH (11:06)
[2020-05-19] MEDS: ASPIRIN 81 MG TABLET, CHEWABLE PO SCH (11:06)
[2020-05-19] MEDS: LEVETIRACETAM 500 MG TABLET PO SCH ×2 (11:06→22:31)
[2020-05-19] MEDS: SPIRONOLACTONE 25 MG TABLET PO SCH ×2 (11:06→22:31)
[2020-05-19] MEDS: FAMOTIDINE 20 MG TABLET PO SCH ×2 (11:06→22:31)
[2020-05-19] MEDS: ENOXAPARIN SODIUM INJ 40 MG/0.4 ML DISP.SYRIN SUBCUT SCH (11:07)
[2020-05-19] MEDS: FUROSEMIDE INJ/PF 40 MG/4 ML SDV IV SCH ×3 (11:07→22:31)
[2020-05-19] MEDS: METOPROLOL SUCCINATE 50 MG TAB.SR.24H PO SCH (11:07)
[2020-05-19] MEDS: ALBUMIN HUMAN 12.5 GM/50 ML RTUINJ IV SCH ×4 (14:17→16:42)
--- NOTE | 2020-05-19 17:32 | PDOC PROGRESS REPORT ---
<ADEEL NOVOA - Last Filed: 05/19/20 19:09> Subjective Reason For Visit: ANASARCA,SHORTNESS OF BREATH Physical Exam Vital Signs: Temp Pulse Resp BP Pulse Ox 97.3 F 76 24 H 119/77 100 05/19/20 15:40 05/19/20 15:40 05/19/20 15:40 05/19/20 15:40 05/19/20 15:40 Intake & Output 05/18/20 05/19/20 05/20/20 06:59 06:59 06:59 Intake Total 1489 1243 686 Output Total 775 1100 325 Balance 714 143 361 Weight 101.5 kg 87.4 kg Results Laboratory Results: 05/19/20 04:52 05/19/20 04:52 05/19/20 05/19/20 04:52 04:52 WBC 5.1 RBC 4.12 Hgb 10.5 L Hct 33.2 L MCV 81 MCH 25.5 L MCHC 31.6 L RDW 19.9 H Plt Count 269 Sodium 136.6 L Potassium 3.8 Chloride 102 Carbon Dioxide 26 Anion Gap 9 BUN 17 Creatinine 0.83 Est GFR ( Amer) > 60 Glucose 104 Calcium 8.2 L 05/16/20 05/16/20 05/16/20 14:30 14:30 22:19 Creatine Kinase 203 H Troponin I 0.037 0.039 NT-Pro-B Natriuret Pep 4030 H 05/17/20 05/18/20 05/19/20 06:37 04:50 04:52 Creatine Kinase Troponin I 0.031 NT-Pro-B Natriuret Pep 3210 H 2410 H Impressions: Chest X-Ray 05/16/20 14:16 IMPRESSION: Persistent bilateral pleural effusion underlying atelectasis cannot be excluded. Stable cardiomegaly. Assessment and Plan - Diagnosis (1) Acute combined systolic (congestive) and diastolic (congestive) heart failure Is this a current diagnosis for this admission?: Yes Plan: Patient does not know her home medication regiment; pharmacy was unable to verify her home medications. It is unclear what her home diuretic dosing would be. She has been managed with IV furosemide 40 mg twice daily; is certainly possible that this is equivalent to what her home medication dosing would be and were not actually diuresing aggressively but maintaining. Further, strict I&O's have not been kept and she is clearly fluid overloaded today. Therefore, as mentioned above, will provide albumin to help mobilize third spacing fluid while increasing her furosemide to 40 mg IV every 8 hours. Nursing is reminded to keep strict I&O's and daily weights. Follow-up chemistry and BNP. (2) Anasarca Is this a current diagnosis for this admission?: Yes (3) Diabetes mellitus type 2 in obese Is this a current diagnosis for this admission?: Yes (4) Elevated troponin Is this a current diagnosis for this admission?: Yes (5) Hypertension Is this a current diagnosis for this admission?: Yes (6) Morbid obesity with BMI of 40.0-44.9, adult Is this a current diagnosis for this admission?: Yes (7) Proteinuria Qualifiers: Proteinuria type: unspecified Qualified Code(s): R80.9 - Proteinuria, unspecified Is this a current diagnosis for this admission?: Yes (8) Noncompliance with medication regimen Is this a current diagnosis for this admission?: Yes (9) History of CVA (cerebrovascular accident) Is this a current diagnosis for this admission?: Yes (10) Hypokalemia Is this a current diagnosis for this admission?: Yes <AL ZENG - Last Filed: 05/20/20 07:50> Subjective Date:: 05/19/20 Subjective:: As per admitting HPI: "PHILLIP DORANTES is a 49 year old female with a history of combined systolic and diastolic heart failure, type 2 diabetes, history of CVA with right-sided hemiplegia, hypertension, seizure disorder, obesity and medication noncompliance who was admitted 05/16/20 with acute on chronic CHF exacerbation." Patient seen on morning rounds. She is resting upright in bed. Provides me with no concerns or complaints. The conversation is actually rather one sided as patient responds "I'm not sure" or "I do not know" to the majority of my questions. She is able to tell me that she feels more swollen than yesterday. She unaware of her last bowel movement. Confirms right-sided hemiplegia. Otherwise no concerns or complaints provided at this time. No concerns as per nursing. Reason For Visit: ANASARCA,SHORTNESS OF BREATH Physical Exam Vital Signs: Temp Pulse Resp BP Pulse Ox 97.3 F 76 24 H 119/77 100 11/21/20 15:40 05/19/20 15:40 05/19/20 15:40 05/19/20 15:40 05/19/20 15:40 Intake & Output 05/18/20 05/19/20 05/20/20 06:59 06:59 06:59 Intake Total 1489 1243 686 Output Total 775 1100 325 Balance 714 143 361 Weight 101.5 kg 87.4 kg General appearance: PRESENT: no acute distress, cooperative, obese Head exam: PRESENT: atraumatic, normocephalic Eye exam: PRESENT: EOMI, PERRLA. ABSENT: scleral icterus Mouth exam: PRESENT: moist, tongue midline Teeth exam: PRESENT: poor dentation Neck exam: ABSENT: carotid bruit, tenderness Respiratory exam: PRESENT: clear to auscultation ac - Anteriorly, decreased breath sounds - Quiet breath sounds, likely due to body habitus, symmetrical, unlabored. ABSENT: rhonchi, wheezes Cardiovascular exam: PRESENT: RRR. ABSENT: diastolic murmur, systolic murmur, tachycardia Pulses: PRESENT: normal radial pulses GI/Abdominal exam: PRESENT: normal bowel sounds, soft, other - Diffuse edema.. ABSENT: firm, rebound, rigid, tenderness Gentrourinary exam: PRESENT: indwelling catheter Extremities exam: PRESENT: other - Notable 3+ pitting edema bilateral lower and upper extremities.. ABSENT: tenderness Musculoskeletal exam: ABSENT: dislocation, tenderness Neurological exam: PRESENT: alert, awake, oriented to person, oriented to place, oriented to time Psychiatric exam: PRESENT: unusual affect Skin exam: PRESENT: dry, intact, warm Results Laboratory Results: 05/19/20 04:52 05/19/20 04:52 05/19/20 05/19/20 04:52 04:52 WBC 5.1 RBC 4.12 Hgb 10.5 L Hct 33.2 L MCV 81 MCH 25.5 L MCHC 31.6 L RDW 19.9 H Plt Count 269 Sodium 136.6 L Potassium 3.8 Chloride 102 Carbon Dioxide 26 Anion Gap 9 BUN 17 Creatinine 0.83 Est GFR ( Amer) > 60 Glucose 104 Calcium 8.2 L 05/16/20 05/16/20 05/16/20 14:30 14:30 22:19 Creatine Kinase 203 H Troponin I 0.037 0.039 NT-Pro-B Natriuret Pep 4030 H 05/17/20 05/18/20 05/19/20 06:37 04:50 04:52 Creatine Kinase Troponin I 0.031 NT-Pro-B Natriuret Pep 3210 H 2410 H Impressions: Chest X-Ray 05/16/20 14:16 IMPRESSION: Persistent bilateral pleural effusion underlying atelectasis cannot be excluded. Stable cardiomegaly. Assessment and Plan - Diagnosis (1) Acute combined systolic (congestive) and diastolic (congestive) heart failure Is this a current diagnosis for this admission?: Yes Plan: Patienting hx includes: shortness of breath, orthopnea and generalized body swelling - BNP was elevated at 4030-> 3200 - CXR cardiomegaly with bilateral pleural effusion - Echocardiogram in July 2019 showed left ventricular ejection fraction of 30% with grade 2 diastolic dysfunction with estimated right ventricular systolic pressure of 50-60 mmHg Previously followed by Dr. Webb (Consider consultation) Supplemental oxygen as needed. Cardiac diet w/ fluid restrictions. Strict I&O's, daily weight, fluid restriction Continue daily aspirin and statin therapy. Continue lisinopril, Toprol XL, and spironolactone. Increased Lasix from 40mg BID to 40mg TID - Look for overall negative fluid balance. - Follow up with BNPs. Increase in anascaria today - Tx: 2 bottle albumin with dose 40mg IV lasix between bottles - Albumin used to help mobilize third spacing fluid. (2) Anasarca Is this a current diagnosis for this admission?: Yes Plan: As per previous note 2+ pitting edema bilat LE - 3+ pitting edema on exam today Secondary to acute decompensated combined systolic and diastolic heart failure -As per treatment above Notable significant proteinurina - Spot urine protein:creatinine 2.6g/day - Likely secondary to diabetic nephropathy - Continue Lisinopril - Consider nephrology consult if worse Kidney function and eGFR WNL Patient also has significant proteinuria with spot urine protein to creatinine ratio showing 2.6 g/day likely due to diabetic nephropathy Kidney function and EGFR within the normal limit (3) Diabetes mellitus type 2 in obese Is this a current diagnosis for this admission?: Yes Plan: A1c 6.8% Patient on Metformin 1000 mg twice daily at home We will hold Metformin for now Started on Accu-Chek, hypoglycemia protocol with sliding scale insulin and diabetic diet elevator mechanic apprentice and patient educator are consulted. (4) Elevated troponin Is this a current diagnosis for this admission?: Yes Plan: Mildly elevated, but flat; troponin 0.037-> 0.031 Patient denies any chest pain Likely type II non-STEMI due to hypoxia and heart failure EKG shows low voltage with sinus tachycardia and SVEs Continue aspirin, atorvastatin (5) Hypertension Is this a current diagnosis for this admission?: Yes Plan: Blood pressures are currently acceptable range, typically 130/80s. Antihypertensives as above. On low-sodium diet (6) Morbid obesity with BMI of 40.0-44.9, adult Is this a current diagnosis for this admission?: Yes Plan: BMI on this encounter 40.8 Volume overload possibly a contributing factor Patient is currently being diuresed Continue consistent carb/cardiac diet. Dietary compliance and lifestyle modification will be encouraged. Registered dietitian consulted. (7) Proteinuria Qualifiers: Proteinuria type: unspecified Qualified Code(s): R80.9 - Proteinuria, unspecified Is this a current diagnosis for this admission?: Yes Plan: Patient has generalized anasarca concerning for possible nephrotic/nephritic causes - UA was positive for proteinuria and hematuria but no casts - Likely due to diabetic nephropathy - EGFR within the normal limit - Continue lisinopril (8) Noncompliance with medication regimen Is this a current diagnosis for this admission?: Yes Plan: Education. Registered dietitian, patient educator, transitions soccer coach, and life care planner consulted. (9) History of CVA (cerebrovascular accident) Is this a current diagnosis for this admission?: Yes Plan: Patient has residual right-sided weakness Continue aspirin and atorvastatin (10) Hypokalemia Is this a current diagnosis for this admission?: Yes Plan: Resolved. Likely r/t furosemide use. Follow up chemistry (11) Hyponatremia Is this a current diagnosis for this admission?: Yes - Time Time Spent with patient: 25-34 minutes Medications reviewed and adjusted accordingly: Yes Anticipated Discharge Disposition: Home with Home Health Anticipated Discharge Timeframe: within 72 hours
[2020-05-19] MEDS: ATORVASTATIN CALCIUM 40 MG TABLET PO SCH (22:31)
[2020-05-20] MEDS: ACETAMINOPHEN 325 MG TABLET PO PRN ×2 (01:26→21:04)
[2020-05-20 05:09] LABS: HEMATOCRIT 30.3 % (36.0-47.0); HEMOGLOBIN 9.9 g/dL (12.0-15.5); MEAN CORPUSCULAR HGB CONC 32.7 g/dL (32.0-36.0); MEAN CORPUSCULAR VOLUME 80 fl (80-97); PLATELET COUNT 270 10^3/uL (150-450); RED CELL DISTRIBUTION WIDTH 20.1 % (11.5-14.0); WHITE BLOOD COUNT 4.5 10^3/uL (4.0-10.5)
[2020-05-20 05:38] LABS: ANION GAP 11 (5-19); BLOOD UREA NITROGEN 18 mg/dL (7-20); CALCIUM 8.5 mg/dL (8.4-10.2); CARBON DIOXIDE 26 mmol/L (22-30); CHLORIDE 100 mmol/L (98-107); GLUCOSE 129 mg/dL (75-110); POTASSIUM 3.9 mmol/L (3.6-5.0)
[2020-05-20] MEDS: FUROSEMIDE INJ/PF 40 MG/4 ML SDV IV SCH ×3 (06:07→21:04)
[2020-05-20] MEDS: INSULIN REG, HUMAN 100 UNIT/ML 3 ML VIAL (PYX) SUBCUT SCH ×4 (08:00→21:04)
[2020-05-20] MEDS: METOPROLOL SUCCINATE 50 MG TAB.SR.24H PO SCH (11:21)
[2020-05-20] MEDS: FAMOTIDINE 20 MG TABLET PO SCH ×2 (11:21→21:04)
[2020-05-20] MEDS: LEVETIRACETAM 500 MG TABLET PO SCH ×2 (11:21→21:04)
[2020-05-20] MEDS: SPIRONOLACTONE 25 MG TABLET PO SCH ×2 (11:21→21:04)
[2020-05-20] MEDS: LISINOPRIL 5 MG TABLET PO SCH (11:21)
[2020-05-20] MEDS: ASPIRIN 81 MG TABLET, CHEWABLE PO SCH (11:21)
[2020-05-20] MEDS: ENOXAPARIN SODIUM INJ 40 MG/0.4 ML DISP.SYRIN SUBCUT SCH (11:23)
--- NOTE | 2020-05-20 14:20 | PDOC PROGRESS REPORT ---
Subjective Date:: 05/20/20 Subjective:: PHILLIP DORANTES is a 49 year old female with a history of combined systolic and diastolic heart failure, type 2 diabetes, history of CVA with right-sided hemiplegia, hypertension, seizure disorder, obesity and medication noncompliance who was admitted 05/16/20 with acute on chronic CHF exacerbation. Patient seen on morning rounds. She is resting upright in bed and tells me she is comfortable. She tells me that she is feeling better. Initially she required supplemental O2, she is 100% on RA today. Denies SOB and tells me that she is breathing more comfortably. Patient relates that she is eager to get home to her grandson. Pt historically had home health arranged and denied services. Discussed home health services with the patient in detail. Pt agrees to wanting to utilize home health services at this time. Upon further questioning she denies fever, chills, CP, SOB, couhg, abd pain, NVD. No concerns per nursing. Reason For Visit: ANASARCA,SHORTNESS OF BREATH Physical Exam Vital Signs: Temp Pulse Resp BP Pulse Ox 98.2 F 73 20 117/94 H 100 05/20/20 10:00 05/20/20 07:39 05/20/20 07:39 05/20/20 07:39 05/20/20 07:39 Intake & Output 05/19/20 05/20/20 05/21/20 06:59 06:59 06:59 Intake Total 1243 856 Output Total 1100 3100 Balance 143 -2244 Weight 87.4 kg 88.5 kg Additional comments: General appearance: PRESENT: no acute distress, cooperative, obese Head exam: PRESENT: atraumatic, normocephalic Eye exam: PRESENT: EOMI, PERRLA. ABSENT: scleral icterus Mouth exam: PRESENT: moist, tongue midline Teeth exam: PRESENT: poor dentation Neck exam: ABSENT: carotid bruit, tenderness Respiratory exam: PRESENT: Due to patient's body habitus and positioning in bed I was able to listen to anterior chest wall only, noted decreased breath sounds which is likely secondary to her body habitus. Otherwise symmetrical, unlabored. ABSENT: rhonchi, wheezes Cardiovascular exam: PRESENT: RRR. ABSENT: diastolic murmur, systolic murmur, tachycardia Pulses: PRESENT: normal radial pulses GI/Abdominal exam: PRESENT: normal bowel sounds, soft, other - Diffuse edema.. ABSENT: firm, rebound, rigid, tenderness Gentrourinary exam: PRESENT: indwelling catheter Extremities exam: PRESENT: other - Notable 3+ pitting edema bilateral lower and upper extremities. With the RUE > LUE, pt hx previous stroke RUE with residual hemiplegia. Mild, diffuse TTP, secondary to edema. Musculoskeletal exam: ABSENT: dislocation, tenderness Neurological exam: PRESENT: alert, awake, oriented to person, oriented to place, oriented to time Psychiatric exam: PRESENT: unusual affect Skin exam: PRESENT: dry, intact, warm Results Laboratory Results: 05/20/20 04:49 05/20/20 04:49 05/20/20 05/20/20 04:49 04:49 WBC 4.5 RBC 3.80 Hgb 9.9 L Hct 30.3 L MCV 80 MCH 26.0 L MCHC 32.7 RDW 20.1 H Plt Count 270 Sodium 136.8 L Potassium 3.9 Chloride 100 Carbon Dioxide 26 Anion Gap 11 BUN 18 Creatinine 0.73 Est GFR ( Amer) > 60 Glucose 129 H Calcium 8.5 Magnesium 1.6 05/16/20 05/16/20 05/16/20 14:30 14:30 22:19 Creatine Kinase 203 H Troponin I 0.037 0.039 NT-Pro-B Natriuret Pep 4030 H 05/17/20 05/18/20 05/19/20 06:37 04:50 04:52 Creatine Kinase Troponin I 0.031 NT-Pro-B Natriuret Pep 3210 H 2410 H Impressions: Chest X-Ray 05/16/20 14:16 IMPRESSION: Persistent bilateral pleural effusion underlying atelectasis cannot be excluded. Stable cardiomegaly. Assessment and Plan - Diagnosis (1) Acute combined systolic (congestive) and diastolic (congestive) heart failu re Is this a current diagnosis for this admission?: Yes Plan: Presenting hx includes: shortness of breath, orthopnea and generalized body swelling -> Significantly improved. - BNP with gradual reduction over hospitalization 4030-> 3200 -> 2410 - CXR cardiomegaly with bilateral pleural effusion - Echocardiogram in July 2019 showed left ventricular ejection fraction of 30% with grade 2 diastolic dysfunction with estimated right ventricular systolic pressure of 50-60 mmHg Previously followed by Dr. Webb, cardiology (Consider consultation) Cardiac diet w/ fluid restrictions. Strict I&O's, daily weight, fluid restriction Continue daily aspirin and statin therapy. Continue lisinopril, Toprol XL, and spironolactone. Increased Lasix from 40mg BID to 40mg TID (05/19) - Overall negative fluid balance 2.4L today. - Notable ~6lb weight loss over hospitalization thus far. - Repeat BNP tomorrow Yesterday pt with increased anascara this was successfully treated with - Albumin x2 with 40mg IV lasix between bottles - Albumin used to mobilize third spacing fluid - If increased anascara in the future, consider further albumin tx. (2) Anasarca Is this a current diagnosis for this admission?: Yes Plan: With notable improvement overall Notable improvement with Albumin + Lasix Secondary to acute decompensated combined systolic and diastolic heart failure -As per treatment above Notable significant proteinurina - Spot urine protein:creatinine 2.6g/day - Likely secondary to diabetic nephropathy - Continue Lisinopril - Consider nephrology consult if worse Kidney function and eGFR WNL (3) Diabetes mellitus type 2 in obese Is this a current diagnosis for this admission?: Yes Plan: Blood sugars consistently <190. A1c 6.8% Patient on Metformin 1000 mg twice daily at home We will hold Metformin for now Started on Accu-Chek, hypoglycemia protocol with sliding scale insulin and diabetic diet (4) Elevated troponin Is this a current diagnosis for this admission?: Yes Plan: Mildly elevated, but flat; troponin 0.037-> 0.031 Patient has persistently denied chest pain Likely type II non-STEMI due to hypoxia and heart failure EKG shows low voltage with sinus tachycardia and SVEs Continue aspirin, atorvastatin (5) Hypertension Is this a current diagnosis for this admission?: Yes Plan: Historically blood pressure 130/80s consistently. Today blood pressurehigh 110s/80s. Current antihypertensives include: - Lisinopril - Metoprolol - Spironolactone - Lasix Continue to monitor BP closely. Consider adjustment of medications. (6) Morbid obesity with BMI of 40.0-44.9, adult Is this a current diagnosis for this admission?: Yes Plan: BMI on this encounter 40.8 Volume overload likely in effect. Patient is currently being diuresed with lasix and spironolactone as above. Continue consistent carb/cardiac diet. Dietary compliance and lifestyle modification will be encouraged. Registered dietitian consulted. (7) Proteinuria Qualifiers: Proteinuria type: unspecified Qualified Code(s): R80.9 - Proteinuria, unspecified Is this a current diagnosis for this admission?: Yes Plan: Patient has generalized anasarca concerning for possible nephrotic/nephritic - UA was positive for proteinuria and hematuria but no casts - eGFR and creatinine consistently WNL - Likely due to diabetic nephropathy - EGFR within the normal limit - Continue lisinopril for renal protective purposes (8) Noncompliance with medication regimen Is this a current diagnosis for this admission?: Yes Plan: Patient historically non-compliant with medication regimen. Educated and discussed medication importance with the patient in detail. She is understanding of this. I believe patient will benefit from home health for medication assistance, patient made aware, understanding and agreeable to this. Registered dietitian, patient educator, transitions charter coach driver, and telecommunications network planner consulted. (9) History of CVA (cerebrovascular accident) Is this a current diagnosis for this admission?: Yes Plan: Patient has residual right-sided weakness. Continue aspirin and atorvastatin. (10) Hypokalemia Is this a current diagnosis for this admission?: Yes Plan: Resolved as of 05/18. Likely r/t furosemide use. Follow up chemistry. (11) Hyponatremia Is this a current diagnosis for this admission?: Yes Plan: Patient is minimally hyponatremic at 136.8. She remains in a fluid-overload state Currently diuresing Continue to monitor on BNP No attention necessary at this time. - Plan Summary Summary: Continue to diurese. Work on monitoring home health for purposes of medication management. Suspect patient will likely be able to dc home with home health within 24-28 hours. - Time Time Spent with patient: 25-34 minutes Medications reviewed and adjusted accordingly: Yes Anticipated Discharge Disposition: Home with Home Health Anticipated Discharge Timeframe: within 48 hours
[2020-05-20] MEDS: ATORVASTATIN CALCIUM 40 MG TABLET PO SCH (21:04)
--- NOTE | 2020-05-21 00:39 | EKG REPORT ---
SEVERITY:- ABNORMAL ECG - SINUS RHYTHM ANTERIOR INFARCT, AGE INDETERMINATE : Confirmed by: Celine Dorsey MD 21-May-2020 00:38:39
[2020-05-21 06:02] LABS: HEMATOCRIT 29.3 % (36.0-47.0); HEMOGLOBIN 9.3 g/dL (12.0-15.5); MEAN CORPUSCULAR HEMOGLOBIN 25.7 pg (27.0-33.4); MEAN CORPUSCULAR HGB CONC 31.9 g/dL (32.0-36.0); MEAN CORPUSCULAR VOLUME 81 fl (80-97); PLATELET COUNT 258 10^3/uL (150-450); RED BLOOD COUNT 3.64 10^6/uL (3.72-5.28); RED CELL DISTRIBUTION WIDTH 19.9 % (11.5-14.0); WHITE BLOOD COUNT 4.4 10^3/uL (4.0-10.5)
[2020-05-21] MEDS: FUROSEMIDE INJ/PF 40 MG/4 ML SDV IV SCH (06:16)
[2020-05-21 06:34] LABS: ANION GAP 11 (5-19); BLOOD UREA NITROGEN 21 mg/dL (7-20); CALCIUM 8.5 mg/dL (8.4-10.2); CARBON DIOXIDE 26 mmol/L (22-30); CHLORIDE 101 mmol/L (98-107); GLUCOSE 174 mg/dL (75-110)
[2020-05-21] MEDS: INSULIN REG, HUMAN 100 UNIT/ML 3 ML VIAL (PYX) SUBCUT SCH ×4 (07:29→21:32)
[2020-05-21 08:07] LABS: ABSOLUTE RETICS # 0.072 10^6/uL (0.028-0.122)
[2020-05-21 08:25] LABS: IRON(TIBC) 16.1 ug/dL (37-170)
[2020-05-21 09:33] LABS: FOLATE 7.99 ng/mL (>2.76)
[2020-05-21] MEDS: FAMOTIDINE 20 MG TABLET PO SCH ×2 (10:42→21:32)
[2020-05-21] MEDS: FUROSEMIDE 80 MG TABLET PO SCH ×2 (10:42→17:04)
[2020-05-21] MEDS: METOPROLOL SUCCINATE 50 MG TAB.SR.24H PO SCH (10:42)
[2020-05-21] MEDS: LISINOPRIL 5 MG TABLET PO SCH (10:43)
[2020-05-21] MEDS: SPIRONOLACTONE 25 MG TABLET PO SCH ×2 (10:43→21:31)
[2020-05-21] MEDS: METOLAZONE 5 MG TABLET PO SCH (10:43)
[2020-05-21] MEDS: ASPIRIN 81 MG TABLET, CHEWABLE PO SCH (10:43)
[2020-05-21] MEDS: LEVETIRACETAM 500 MG TABLET PO SCH ×2 (10:44→21:32)
[2020-05-21] MEDS: ENOXAPARIN SODIUM INJ 40 MG/0.4 ML DISP.SYRIN SUBCUT SCH (10:44)
[2020-05-21] MEDS: POLYETHYLENE GLYCOL 3350 POWDER 17 GM/1 PACKET PO SCH (10:51)
[2020-05-21] MEDS: SENNOSIDES/DOCUSATE 8.6-50 MG 1 EACH TABLET PO SCH ×2 (10:51→17:04)
--- NOTE | 2020-05-21 14:18 | PDOC PROGRESS REPORT ---
Subjective Date:: 05/21/20 Subjective:: PHILLIP DORANTES is a 49 year old female with a history of combined systolic and diastolic heart failure, type 2 diabetes, history of CVA with right-sided hemiplegia, hypertension, seizure disorder, obesity and medication noncompliance who was admitted 05/16/20 with acute on chronic CHF exacerbation. Patient seen on morning rounds. Resting in bed. She is resting upright in bed with O2 sat 99% on room air; without complaints of shortness of breath. 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 Symptoms resolved without treatment. Negative cardiac enzymes, negative EKG. Patient denies CP today. Previous note reviewed, patient with hospitalization 12/16/2019 for similar sxs, dry weight on dc 80kg. Weight today 88.5; asked nurse to zero bed and reweigh for most accurate weight possible. Patient denies any further concerns or complaints at this time. Discussed case with nurse. Pt with last documented BM 05/17. Patient denies knowledge of last BM. No further concerns/complaints. Reason For Visit: ANASARCA,SHORTNESS OF BREATH Physical Exam Vital Signs: Temp Pulse Resp BP Pulse Ox 97.7 F 85 19 139/102 H 99 05/21/20 08:39 05/21/20 07:44 05/21/20 07:44 05/21/20 07:44 05/21/20 07:44 Intake & Output 05/20/20 05/21/20 05/22/20 06:59 06:59 06:59 Intake Total 856 380 240 Output Total 3100 2125 600 Balance -1203 -2031 -543 Weight 88.5 kg Additional comments: General appearance: PRESENT: no acute distress, cooperative, obese Head exam: PRESENT: atraumatic, normocephalic Eye exam: PRESENT: EOMI, PERRLA. ABSENT: scleral icterus Mouth exam: PRESENT: moist, tongue midline Teeth exam: PRESENT: poor dentation Neck exam: ABSENT: carotid bruit, tenderness Respiratory exam: PRESENT: Due to patient's body habitus and positioning in bed I was able to listen to anterior chest wall only, noted decreased breath sounds which is likely secondary to her body habitus. Otherwise symmetrical, unlabored. ABSENT: rhonchi, wheezes Cardiovascular exam: PRESENT: RRR. ABSENT: diastolic murmur, systolic murmur, tachycardia Pulses: PRESENT: normal radial pulses GI/Abdominal exam: PRESENT: normal bowel sounds, soft, other - Diffuse edema.. ABSENT: firm, rebound, rigid, tenderness Gentrourinary exam: PRESENT: indwelling catheter Extremities exam: PRESENT: other - 2+ pitting edema bilateral LE, extending up into mid thigh region, this has improved from previous visits. RUE with edema extending from dorsum of hand into upper arm, this has remained persistent over hospitalization. LUE edema significantly improved. Pt hx previous stroke RUE with residual hemiplegia. Mild, diffuse TTP, secondary to edema. Musculoskeletal exam: ABSENT: dislocation, tenderness Neurological exam: PRESENT: alert, awake, oriented to person, oriented to place, oriented to time Psychiatric exam: PRESENT: unusual affect Skin exam: PRESENT: dry, intact, warm Results Laboratory Results: 05/21/20 04:07 05/21/20 04:07 05/21/20 05/21/20 05/21/20 04:07 04:07 04:07 WBC 4.4 RBC 3.64 L Hgb 9.3 L Hct 29.3 L MCV 81 MCH 25.7 L MCHC 31.9 L RDW 19.9 H Plt Count 258 Retic Count (auto) 2.00 Sodium 138.3 Potassium 4.0 Chloride 101 Carbon Dioxide 26 Anion Gap 11 BUN 21 H Creatinine 0.90 Est GFR ( Amer) > 60 Glucose 174 H Calcium 8.5 Magnesium 1.7 Iron TIBC % Saturation Ferritin Vitamin B12 Folate 05/21/20 04:07 WBC RBC Hgb Hct MCV MCH MCHC RDW Plt Count Retic Count (auto) Sodium Potassium Chloride Carbon Dioxide Anion Gap BUN Creatinine Est GFR ( Amer) Glucose Calcium Magnesium Iron 16.1 L TIBC 348 % Saturation 5 Ferritin 11.70 Vitamin B12 440.0 Folate 7.99 05/16/20 05/16/20 05/16/20 14:30 14:30 22:19 Creatine Kinase 203 H Troponin I 0.037 0.039 NT-Pro-B Natriuret Pep 4030 H 05/17/20 05/18/20 05/19/20 06:37 04:50 04:52 Creatine Kinase Troponin I 0.031 NT-Pro-B Natriuret Pep 3210 H 2410 H 05/20/20 05/21/20 21:34 04:07 Creatine Kinase Troponin I 0.020 NT-Pro-B Natriuret Pep 2170 H Impressions: Chest X-Ray 05/16/20 14:16 IMPRESSION: Persistent bilateral pleural effusion underlying atelectasis cannot be excluded. Stable cardiomegaly. Assessment and Plan - Diagnosis (1) Iron deficiency anemia Qualifiers: Iron deficiency anemia type: unspecified iron deficiency Qualified Code(s): D50.9 - Iron deficiency anemia, unspecified Is this a current diagnosis for this admission?: Yes Plan: Hgb 9.3 baseline 10. Iron 16.1, Ferritin: 11.70, %Sat: 5 Initiate Ferrous sulfate 325mg PO daily. Monitor hgb on CBC daily. (2) Constipation Qualifiers: Constipation type: unspecified constipation type Qualified Code(s): K59.00 - Constipation, unspecified Is this a current diagnosis for this admission?: Yes Plan: As per nursing report last knwon BM 05/17. Initiate bowel regimen with MiraLAX and senna. (3) Acute combined systolic (congestive) and diastolic (congestive) heart failure Is this a current diagnosis for this admission?: Yes Plan: Presenting hx includes: shortness of breath, orthopnea and generalized body swelling -> Significantly improved. - BNP with gradual reduction over hospitalization 4030-> 3200 -> 2410 - CXR cardiomegaly with bilateral pleural effusion 05/16 - Echocardiogram in July 2019 showed left ventricular ejection fraction of 30% with grade 2 diastolic dysfunction with estimated right ventricular systolic pressure of 50-60 mmHg Previously followed by Dr. Webb, cardiology (Consider consultation) Cardiac diet w/ fluid restrictions. Strict I&O's, daily weight, fluid restriction Continue daily aspirin and statin therapy. Continue lisinopril, Toprol XL, and spironolactone. 05/21 changed from IV 40 IV lasix TID to Lasix 80mg PO BID + Metolazone 5mg PO daily - Overall negative fluid balance 1.5 today. - BNP 2170 (trending down) - As per admission 12/16/2019 for similar symptoms pt's dc dry weight 80kg. - Consider dc once weight comparable to dry weight of 80kg. ON 05/19 pt with increased anascara this was successfully treated with - Albumin x2 with 40mg IV lasix between bottles - Albumin used to mobilize third spacing fluid - If increased anascara in the future, consider further albumin tx. (4) Anasarca Is this a current diagnosis for this admission?: Yes Plan: Continued notable improvement Albumin + Lasix utilized 05/19 with improvement Cnt Lasix 80mg PO BID + Metolazone 5mg PO daily Secondary to acute decompensation combined systolic and diastolic heart failure -As per treatment above Notable significant proteinurina - Spot urine protein:creatinine 2.6g/day - Likely secondary to diabetic nephropathy - Continue Lisinopril - Consider nephrology consult if worse Kidney function and eGFR WNL (5) Diabetes mellitus type 2 in obese Is this a current diagnosis for this admission?: Yes Plan: Blood sugars consistently <190. A1c 6.8% Patient on Metformin 1000 mg twice daily at home We will hold Metformin for now Started on Accu-Chek, hypoglycemia protocol with sliding scale insulin and diabetic diet (6) Elevated troponin Is this a current diagnosis for this admission?: Yes Plan: Mildly elevated, but flat; troponin 0.037-> 0.031 Patient has persistently denied chest pain Likely type II non-STEMI due to hypoxia and heart failure EKG shows low voltage with sinus tachycardia and SVEs Continue aspirin, atorvastatin 05/21: Patient with single episode intermittent CP as per night doc. - Resolved without treatment - Cardiac enzymes negative - EKG without acute ischemia (7) Hypertension Is this a current diagnosis for this admission?: Yes Plan: BP typically in 140/70s We expect this to decrease with continued fluid loss Current antihypertensives include: - Lisinopril - Metoprolol - Spironolactone - Lasix HR 80-90s. Increase Metoprolol to 100mg (05/21) Continue to monitor BP closely. Consider adjustment of medications. (8) Morbid obesity with BMI of 40.0-44.9, adult Is this a current diagnosis for this admission?: Yes Plan: BMI on this encounter 40.8 Volume overload likely in effect. Patient is currently being diuresed with lasix and spironolactone as above. Continue consistent carb/cardiac diet. Dietary compliance and lifestyle modification will be encouraged. Registered dietitian consulted. (9) Proteinuria Qualifiers: Proteinuria type: unspecified Qualified Code(s): R80.9 - Proteinuria, unspecified Is this a current diagnosis for this admission?: Yes Plan: Patient has generalized anasarca concerning for possible nephrotic/nephritic - UA was positive for proteinuria and hematuria but no casts - eGFR and creatinine consistently WNL - Likely due to diabetic nephropathy - EGFR within the normal limit - Continue lisinopril for renal protective purposes (10) Noncompliance with medication regimen Is this a current diagnosis for this admission?: Yes Plan: Patient historically non-compliant with medication regimen. Educated and discussed medication importance with the patient in detail. She is understanding of this. Home health palliative care consult referral made 05/21. (11) History of CVA (cerebrovascular accident) Is this a current diagnosis for this admission?: Yes Plan: Patient has residual right-sided weakness. Continue aspirin and atorvastatin. (12) Hypokalemia Is this a current diagnosis for this admission?: Yes Plan: Resolved as of 05/18. Likely r/t furosemide use. (13) Hyponatremia Is this a current diagnosis for this admission?: Yes Plan: Resolved. She remains in a fluid-overload state. Currently diuresing Continue to monitor on BNP. No attention necessary at this time. - Plan Summary Summary: Lasix 80mg PO BID + Metolazone 5mg PO daily, goal weight 80kg. Plan to dc with home health for medication compliance. - Time Time Spent with patient: 25-34 minutes Medications reviewed and adjusted accordingly: Yes Anticipated Discharge Disposition: Home with Home Health Anticipated Discharge Timeframe: within 48 hours
[2020-05-21] MEDS: FERROUS SULFATE 325 MG TABLET PO SCH (15:40)
[2020-05-21] MEDS: ATORVASTATIN CALCIUM 40 MG TABLET PO SCH (21:32)
[2020-05-21] MEDS: ACETAMINOPHEN 325 MG TABLET PO PRN (22:46)
[2020-05-22 05:52] LABS: HEMATOCRIT 29.5 % (36.0-47.0); HEMOGLOBIN 9.6 g/dL (12.0-15.5); MEAN CORPUSCULAR HEMOGLOBIN 25.9 pg (27.0-33.4); MEAN CORPUSCULAR HGB CONC 32.4 g/dL (32.0-36.0); MEAN CORPUSCULAR VOLUME 80 fl (80-97); PLATELET COUNT 244 10^3/uL (150-450); RED BLOOD COUNT 3.69 10^6/uL (3.72-5.28); RED CELL DISTRIBUTION WIDTH 20.3 % (11.5-14.0); WHITE BLOOD COUNT 3.8 10^3/uL (4.0-10.5)
[2020-05-22 06:19] LABS: ANION GAP 8 (5-19); BLOOD UREA NITROGEN 22 mg/dL (7-20); CALCIUM 8.9 mg/dL (8.4-10.2); CARBON DIOXIDE 30 mmol/L (22-30); CHLORIDE 98 mmol/L (98-107); GLUCOSE 104 mg/dL (75-110)
[2020-05-22] MEDS: INSULIN REG, HUMAN 100 UNIT/ML 3 ML VIAL (PYX) SUBCUT SCH ×4 (07:34→21:39)
[2020-05-22] MEDS: ENOXAPARIN SODIUM INJ 40 MG/0.4 ML DISP.SYRIN SUBCUT SCH (10:31)
[2020-05-22] MEDS: METOLAZONE 5 MG TABLET PO SCH (10:31)
[2020-05-22] MEDS: LEVETIRACETAM 500 MG TABLET PO SCH ×2 (10:31→21:41)
[2020-05-22] MEDS: FAMOTIDINE 20 MG TABLET PO SCH ×2 (10:31→21:41)
[2020-05-22] MEDS: METOPROLOL SUCCINATE 50 MG TAB.SR.24H PO SCH (10:31)
[2020-05-22] MEDS: SPIRONOLACTONE 25 MG TABLET PO SCH ×2 (10:31→21:40)
[2020-05-22] MEDS: LISINOPRIL 5 MG TABLET PO SCH (10:32)
[2020-05-22] MEDS: POLYETHYLENE GLYCOL 3350 POWDER 17 GM/1 PACKET PO SCH (10:32)
[2020-05-22] MEDS: SENNOSIDES/DOCUSATE 8.6-50 MG 1 EACH TABLET PO SCH ×2 (10:32→17:11)
[2020-05-22] MEDS: FERROUS SULFATE 325 MG TABLET PO SCH (10:32)
[2020-05-22] MEDS: FUROSEMIDE 80 MG TABLET PO SCH ×2 (10:32→17:11)
[2020-05-22] MEDS: ASPIRIN 81 MG TABLET, CHEWABLE PO SCH (10:32)
--- NOTE | 2020-05-22 13:08 | PDOC PROGRESS REPORT ---
Subjective Date:: 05/22/20 Subjective:: PHILLIP DORANTES is a 49 year old female with a history of combined systolic and diastolic heart failure, type 2 diabetes, history of CVA with right-sided hemiplegia, hypertension, seizure disorder, obesity and medication noncompliance now presents to the ER with worsening shortness of breath and generalized body swelling. Patient is a poor historian and is unable to remember the details but she states that over the past few months she has been progressively getting winded and in the last week the shortness of breath got really worse with associated orthopnea. She states that she is wheelchair-bound at home but unable to specify for how long has she been on a wheelchair. She denies any chest pain, cough, fever, chills, nausea, vomiting, abdominal pain, diarrhea, dysuria, urgency or frequency of urination. Patient also reports that her son gives her her daily medication but does not know what medications she is on or if she has been missing doses. She denies any recent sick contact history. D6 hospital stay 05/22/20. She was seen and examined at bedside. She appears to be sleeping comfortably, on RA saturating 97%. She denied any chest pain or SOB. She reports that her edema has improved. Weight today is 103 kg which I doubt is accurate and I have asked the nurse to re weight her with a ivy lift. She has been restarted on her metolazone. She still has 2+ pitting edema. Reason For Visit: ANASARCA,SHORTNESS OF BREATH Physical Exam Vital Signs: Temp Pulse Resp BP Pulse Ox 98.4 F 76 19 150/91 H 99 05/22/20 10:00 05/22/20 08:00 05/22/20 08:00 05/22/20 08:00 05/22/20 09:14 Intake & Output 05/21/20 05/22/20 05/23/20 06:59 06:59 06:59 Intake Total 380 760 Output Total 0343 4908 Balance -3437 -8937 Weight 88.5 kg 102.8 kg General appearance: PRESENT: no acute distress, cooperative, morbidly obese Head exam: PRESENT: atraumatic, normocephalic Eye exam: PRESENT: EOMI, PERRLA Neck exam: PRESENT: full ROM Respiratory exam: PRESENT: clear to auscultation ac, symmetrical, unlabored Cardiovascular exam: PRESENT: RRR, +S1, +S2 Pulses: PRESENT: normal carotid pulses GI/Abdominal exam: PRESENT: normal bowel sounds, soft. ABSENT: rebound, tenderness Extremities exam: PRESENT: +2 edema Musculoskeletal exam: PRESENT: other - She is wheelchair-bound at baseline Neurological exam: PRESENT: alert, awake. ABSENT: oriented to person, oriented to time Skin exam: PRESENT: normal color Results Laboratory Results: 05/22/20 04:44 05/22/20 04:44 05/22/20 05/22/20 04:44 04:44 WBC 3.8 L RBC 3.69 L Hgb 9.6 L Hct 29.5 L MCV 80 MCH 25.9 L MCHC 32.4 RDW 20.3 H Plt Count 244 Sodium 136.0 L Potassium 4.0 Chloride 98 Carbon Dioxide 30 Anion Gap 8 BUN 22 H Creatinine 0.87 Est GFR ( Amer) > 60 Glucose 104 Calcium 8.9 05/16/20 05/16/20 05/16/20 14:30 14:30 22:19 Creatine Kinase 203 H Troponin I 0.037 0.039 NT-Pro-B Natriuret Pep 4030 H 05/17/20 05/18/20 05/19/20 06:37 04:50 04:52 Creatine Kinase Troponin I 0.031 NT-Pro-B Natriuret Pep 3210 H 2410 H 05/20/20 05/21/20 21:34 04:07 Creatine Kinase Troponin I 0.020 NT-Pro-B Natriuret Pep 2170 H Impressions: Chest X-Ray 05/16/20 14:16 IMPRESSION: Persistent bilateral pleural effusion underlying atelectasis cannot be excluded. Stable cardiomegaly. Assessment and Plan - Diagnosis (1) Acute combined systolic (congestive) and diastolic (congestive) heart magno lure Is this a current diagnosis for this admission?: Yes Plan: Presenting hx includes: shortness of breath, orthopnea and generalized body swelling -> Significantly improved. - BNP with gradual reduction over hospitalization 4030-> 3200 -> 2410 - CXR cardiomegaly with bilateral pleural effusion 05/16 - Echocardiogram in July 2019 showed left ventricular ejection fraction of 30% with grade 2 diastolic dysfunction with estimated right ventricular systolic pressure of 50-60 mmHg -Previously followed by Dr. Webb, cardiology (Consider consultation) - on Lasix 80 mg BID and metolazone 5 mg daily -Continue daily aspirin and statin therapy. -Continue lisinopril, Toprol XL, and spironolactone. -Cardiac diet w/ fluid restrictions. -Strict I&O's, daily weight, fluid restriction (2) Anasarca Is this a current diagnosis for this admission?: Yes Plan: -Continued notable improvement - Secondary to acute decompensation combined systolic and diastolic heart magno lure - continue Lasix 80mg PO BID + Metolazone 5mg PO daily (3) Hypertension Is this a current diagnosis for this admission?: Yes Plan: BP typically in 140/70s - increased Lisinopril to 5 mg daily and Metoprolol 100 po daily -also on Spironolactone, Lasix -Continue to monitor BP closely. -Consider adjustment of medications. (4) Hyponatremia Is this a current diagnosis for this admission?: Yes Plan: Resolved. She remains in a fluid-overload state. Currently diuresing Continue to monitor. (5) Iron deficiency anemia Qualifiers: Iron deficiency anemia type: unspecified iron deficiency Qualified Code(s): D50.9 - Iron deficiency anemia, unspecified Is this a current diagnosis for this admission?: Yes Plan: Hgb 9.3 baseline 10. Iron 16.1, Ferritin: 11.70, %Sat: 5 Initiate Ferrous sulfate 325mg PO daily. Monitor hgb on CBC daily. (6) Morbid obesity with BMI of 40.0-44.9, adult Is this a current diagnosis for this admission?: Yes Plan: BMI on this encounter 40.8 Volume overload likely in effect. Patient is currently being diuresed with lasix and spironolactone as above. Continue consistent carb/cardiac diet. Dietary compliance and lifestyle modification will be encouraged. Registered dietitian consulted. (7) Proteinuria Qualifiers: Proteinuria type: unspecified Qualified Code(s): R80.9 - Proteinuria, unspecified Is this a current diagnosis for this admission?: Yes Plan: Patient has generalized anasarca concerning for possible nephrotic/nephritic - UA was positive for proteinuria and hematuria but no casts - eGFR and creatinine consistently WNL - Likely due to diabetic nephropathy - EGFR within the normal limit - lisinopril increased (8) Diabetes mellitus type 2 in obese Is this a current diagnosis for this admission?: Yes Plan: Blood sugars consistently <190. A1c 6.8% Patient on Metformin 1000 mg twice daily at home We will hold Metformin for now Started on Accu-Chek, hypoglycemia protocol with sliding scale insulin and diabetic diet (9) Elevated troponin Is this a current diagnosis for this admission?: Yes Plan: Mildly elevated, but flat; troponin 0.037-> 0.031 Patient has persistently denied chest pain Likely type II non-STEMI due to hypoxia and heart failure EKG shows low voltage with sinus tachycardia and SVEs Continue aspirin, atorvastatin (10) History of CVA (cerebrovascular accident) Is this a current diagnosis for this admission?: Yes Plan: Patient has residual right-sided weakness. Continue aspirin and atorvastatin. (11) Hypokalemia Is this a current diagnosis for this admission?: Yes Plan: Resolved as of 05/18. Likely r/t furosemide use. (12) Noncompliance with medication regimen Is this a current diagnosis for this admission?: Yes Plan: Patient historically non-compliant with medication regimen. Educated and discussed medication importance with the patient in detail. She is understanding of this. Home health palliative care consult referral made 05/21. - Plan Summary Summary: Lasix 80mg PO BID + Metolazone 5mg PO daily, goal weight 80kg. Plan to dc with home health for medication compliance. - Time Time Spent with patient: 15-24 minutes Medications reviewed and adjusted accordingly: Yes Anticipated Discharge Disposition: Home with Home Health Anticipated Discharge Timeframe: within 48 hours
[2020-05-22] MEDS: ATORVASTATIN CALCIUM 40 MG TABLET PO SCH (21:41)
[2020-05-23 04:57] LABS: HEMATOCRIT 29.9 % (36.0-47.0); HEMOGLOBIN 9.8 g/dL (12.0-15.5); MEAN CORPUSCULAR HGB CONC 32.8 g/dL (32.0-36.0); MEAN CORPUSCULAR VOLUME 79 fl (80-97); PLATELET COUNT 258 10^3/uL (150-450); RED BLOOD COUNT 3.77 10^6/uL (3.72-5.28); RED CELL DISTRIBUTION WIDTH 19.4 % (11.5-14.0); WHITE BLOOD COUNT 3.7 10^3/uL (4.0-10.5)
[2020-05-23 05:19] LABS: ANION GAP 8 (5-19); BLOOD UREA NITROGEN 21 mg/dL (7-20); CALCIUM 8.9 mg/dL (8.4-10.2); CARBON DIOXIDE 34 mmol/L (22-30); CHLORIDE 94 mmol/L (98-107); GLUCOSE 114 mg/dL (75-110)
[2020-05-23] MEDS: INSULIN REG, HUMAN 100 UNIT/ML 3 ML VIAL (PYX) SUBCUT SCH ×4 (07:43→21:19)
[2020-05-23] MEDS ORDERED: ACETAZOLAMIDE 250 MG TABLET PO ONE (09:00)
[2020-05-23] MEDS: METOPROLOL SUCCINATE 50 MG TAB.SR.24H PO SCH (10:09)
[2020-05-23] MEDS: LEVETIRACETAM 500 MG TABLET PO SCH ×2 (10:09→21:16)
[2020-05-23] MEDS: METOLAZONE 5 MG TABLET PO SCH (10:09)
[2020-05-23] MEDS: FERROUS SULFATE 325 MG TABLET PO SCH (10:09)
[2020-05-23] MEDS: SENNOSIDES/DOCUSATE 8.6-50 MG 1 EACH TABLET PO SCH ×2 (10:09→17:05)
[2020-05-23] MEDS: FAMOTIDINE 20 MG TABLET PO SCH ×2 (10:09→21:15)
[2020-05-23] MEDS: ENOXAPARIN SODIUM INJ 40 MG/0.4 ML DISP.SYRIN SUBCUT SCH (10:10)
[2020-05-23] MEDS: FUROSEMIDE 80 MG TABLET PO SCH ×2 (10:10→17:05)
[2020-05-23] MEDS: POLYETHYLENE GLYCOL 3350 POWDER 17 GM/1 PACKET PO SCH (10:10)
[2020-05-23] MEDS: ASPIRIN 81 MG TABLET, CHEWABLE PO SCH (10:10)
[2020-05-23] MEDS: SPIRONOLACTONE 25 MG TABLET PO SCH ×2 (10:10→21:15)
[2020-05-23] MEDS: LISINOPRIL 5 MG TABLET PO SCH (10:10)
--- NOTE | 2020-05-23 17:17 | PDOC PROGRESS REPORT ---
Subjective Date:: 05/23/20 Subjective:: PHILLIP DORANTES is a 49 year old female with a history of combined systolic and diastolic heart failure, type 2 diabetes, history of CVA with right-sided hemiplegia, hypertension, seizure disorder, obesity and medication noncompliance now presents to the ER with worsening shortness of breath and generalized body swelling. Patient is a poor historian and is unable to remember the details but she states that over the past few months she has been progressively getting winded and in the last week the shortness of breath got really worse with associated orthopnea. She states that she is wheelchair-bound at home but unable to specify for how long has she been on a wheelchair. She denies any chest pain, cough, fever, chills, nausea, vomiting, abdominal pain, diarrhea, dysuria, urgency or frequency of urination. Patient also reports that her son gives her her daily medication but does not know what medications she is on or if she has been missing doses. She denies any recent sick contact history. D6 hospital stay 05/22/20. She was seen and examined at bedside. She appears to be sleeping comfortably, on RA saturating 97%. She denied any chest pain or SOB. She reports that her edema has improved. Weight today is 103 kg which I doubt is accurate and I have asked the nurse to re weight her with a ivy lift. She has been restarted on her metolazone. She still has 2+ pitting edema. D7 Hospital stay 05/23/20. She was seen and examined at bedside. She appears mu ch more awake and alert today. She is down to 85 kg today. Denies any SOB, no chest pain. She is on room air. She has lost significant weight since being admitted. Plan is to discharge her tomorrow Reason For Visit: ANASARCA,SHORTNESS OF BREATH Physical Exam Vital Signs: Temp Pulse Resp BP Pulse Ox 98.0 F 72 17 111/62 100 05/23/20 11:04 05/23/20 14:00 05/23/20 11:04 05/23/20 11:04 05/23/20 11:04 Intake & Output 05/22/20 05/23/20 05/24/20 06:59 06:59 06:59 Intake Total 760 836 280 Output Total 8477 5442 800 Balance -2915 -4364 -520 Weight 102.8 kg 85.7 kg General appearance: PRESENT: no acute distress, cooperative Head exam: PRESENT: atraumatic, normocephalic Eye exam: PRESENT: EOMI, PERRLA Mouth exam: PRESENT: moist Neck exam: PRESENT: full ROM Respiratory exam: PRESENT: rales, symmetrical, unlabored Cardiovascular exam: PRESENT: RRR, +S1, +S2 GI/Abdominal exam: PRESENT: normal bowel sounds, soft. ABSENT: rebound, tenderness Gentrourinary exam: PRESENT: indwelling catheter Extremities exam: PRESENT: +2 edema Musculoskeletal exam: PRESENT: other - Wheelchair-bound at baseline Neurological exam: PRESENT: alert, awake, oriented to person, oriented to place. ABSENT: oriented to time Psychiatric exam: PRESENT: normal mood Skin exam: PRESENT: normal color Results Laboratory Results: 05/23/20 04:15 05/23/20 04:15 05/23/20 05/23/20 04:15 04:15 WBC 3.7 L RBC 3.77 Hgb 9.8 L Hct 29.9 L MCV 79 L MCH 26.0 L MCHC 32.8 RDW 19.4 H Plt Count 258 Sodium 135.7 L Potassium 4.0 Chloride 94 L Carbon Dioxide 34 H Anion Gap 8 BUN 21 H Creatinine 0.90 Est GFR ( Amer) > 60 Glucose 114 H Calcium 8.9 05/16/20 05/16/20 05/16/20 14:30 14:30 22:19 Creatine Kinase 203 H Troponin I 0.037 0.039 NT-Pro-B Natriuret Pep 4030 H 05/17/20 05/18/20 05/19/20 06:37 04:50 04:52 Creatine Kinase Troponin I 0.031 NT-Pro-B Natriuret Pep 3210 H 2410 H 05/20/20 05/21/20 21:34 04:07 Creatine Kinase Troponin I 0.020 NT-Pro-B Natriuret Pep 2170 H Impressions: Chest X-Ray 05/16/20 14:16 IMPRESSION: Persistent bilateral pleural effusion underlying atelectasis cannot be excluded. Stable cardiomegaly. Assessment and Plan - Diagnosis (1) Acute combined systolic (congestive) and diastolic (congestive) heart failu re Is this a current diagnosis for this admission?: Yes Plan: Presenting hx includes: shortness of breath, orthopnea and generalized body swelling -> Significantly improved. - BNP with gradual reduction over hospitalization 4030-> 3200 -> 2410 - CXR cardiomegaly with bilateral pleural effusion 05/16 - Echocardiogram in July 2019 showed left ventricular ejection fraction of 30% with grade 2 diastolic dysfunction with estimated right ventricular systolic pressure of 50-60 mmHg -Previously followed by Dr. Webb, cardiology (Consider consultation) - on Lasix 80 mg BID and metolazone 5 mg daily -Continue daily aspirin and statin therapy. -Continue lisinopril, Toprol XL, and spironolactone. -Cardiac diet w/ fluid restrictions. -Strict I&O's, daily weight, fluid restriction - has lost about 20 kg since admission. Dry weight 80 kg (2) Anasarca Is this a current diagnosis for this admission?: Yes Plan: -Continued notable improvement - Secondary to acute decompensation combined systolic and diastolic heart failure - continue Lasix 80mg PO BID + Metolazone 5mg PO daily (3) Hypertension Is this a current diagnosis for this admission?: Yes Plan: BP typically in 140/70s - increased Lisinopril to 5 mg daily and Metoprolol 100 po daily -also on Spironolactone, Lasix -Continue to monitor BP closely.. (4) Hyponatremia Is this a current diagnosis for this admission?: Yes Plan: Resolved. She remains in a fluid-overload state. Currently diuresing Continue to monitor. (5) Iron deficiency anemia Qualifiers: Iron deficiency anemia type: unspecified iron deficiency Qualified Code(s): D50.9 - Iron deficiency anemia, unspecified Is this a current diagnosis for this admission?: Yes Plan: Hgb 9.3 baseline 10. Iron 16.1, Ferritin: 11.70, %Sat: 5 Initiate Ferrous sulfate 325mg PO daily. Monitor hgb on CBC daily. (6) Morbid obesity with BMI of 40.0-44.9, adult Is this a current diagnosis for this admission?: Yes Plan: BMI on this encounter 40.8 Volume overload likely in effect. Patient is currently being diuresed with lasix and spironolactone as above. Continue consistent carb/cardiac diet. Dietary compliance and lifestyle modification will be encouraged. Registered dietitian consulted. (7) Proteinuria Qualifiers: Proteinuria type: unspecified Qualified Code(s): R80.9 - Proteinuria, unspecified Is this a current diagnosis for this admission?: Yes Plan: Patient has generalized anasarca concerning for possible nephrotic/nephritic - UA was positive for proteinuria and hematuria but no casts - eGFR and creatinine consistently WNL - Likely due to diabetic nephropathy - EGFR within the normal limit - lisinopril increased (8) Diabetes mellitus type 2 in obese Is this a current diagnosis for this admission?: Yes Plan: Blood sugars consistently <190. A1c 6.8% Patient on Metformin 1000 mg twice daily at home We will hold Metformin for now Started on Accu-Chek, hypoglycemia protocol with sliding scale insulin and diabetic diet (9) Elevated troponin Is this a current diagnosis for this admission?: Yes Plan: Mildly elevated, but flat; troponin 0.037-> 0.031 Patient has persistently denied chest pain Likely type II non-STEMI due to hypoxia and heart failure EKG shows low voltage with sinus tachycardia and SVEs Continue aspirin, atorvastatin (10) History of CVA (cerebrovascular accident) Is this a current diagnosis for this admission?: Yes Plan: Patient has residual right-sided weakness. Continue aspirin and atorvastatin. (11) Hypokalemia Is this a current diagnosis for this admission?: Yes Plan: Resolved as of 05/18. Likely r/t furosemide use. (12) Noncompliance with medication regimen Is this a current diagnosis for this admission?: Yes Plan: Patient historically non-compliant with medication regimen. Educated and discussed medication importance with the patient in detail. She is understanding of this. Home health palliative care consult referral made 05/21. - Plan Summary Summary: Lasix 80mg PO BID + Metolazone 5mg PO daily, goal weight 80kg. Plan to dc with home health for medication compliance. - Time Time Spent with patient: 15-24 minutes Medications reviewed and adjusted accordingly: Yes Anticipated Discharge Disposition: Home with Home Health Anticipated Discharge Timeframe: within 24 hours
[2020-05-23] MEDS: ATORVASTATIN CALCIUM 40 MG TABLET PO SCH (21:15)
[2020-05-24 05:43] LABS: HEMATOCRIT 30.4 % (36.0-47.0); HEMOGLOBIN 9.9 g/dL (12.0-15.5); MEAN CORPUSCULAR HEMOGLOBIN 26.1 pg (27.0-33.4); MEAN CORPUSCULAR HGB CONC 32.6 g/dL (32.0-36.0); MEAN CORPUSCULAR VOLUME 80 fl (80-97); PLATELET COUNT 252 10^3/uL (150-450); RED BLOOD COUNT 3.79 10^6/uL (3.72-5.28); RED CELL DISTRIBUTION WIDTH 20.2 % (11.5-14.0); WHITE BLOOD COUNT 4.6 10^3/uL (4.0-10.5)
[2020-05-24 05:59] LABS: ANION GAP 9 (5-19); BLOOD UREA NITROGEN 23 mg/dL (7-20); CALCIUM 8.7 mg/dL (8.4-10.2); CARBON DIOXIDE 34 mmol/L (22-30); CHLORIDE 93 mmol/L (98-107); GLUCOSE 121 mg/dL (75-110); POTASSIUM 3.7 mmol/L (3.6-5.0)
[2020-05-24] MEDS: INSULIN REG, HUMAN 100 UNIT/ML 3 ML VIAL (PYX) SUBCUT SCH ×4 (07:17→22:19)
[2020-05-24] MEDS: METOPROLOL SUCCINATE 50 MG TAB.SR.24H PO SCH (10:02)
[2020-05-24] MEDS: LEVETIRACETAM 500 MG TABLET PO SCH ×2 (10:02→22:19)
[2020-05-24] MEDS: SPIRONOLACTONE 25 MG TABLET PO SCH ×2 (10:02→22:19)
[2020-05-24] MEDS: FUROSEMIDE 80 MG TABLET PO SCH ×2 (10:02→17:04)
[2020-05-24] MEDS: FAMOTIDINE 20 MG TABLET PO SCH ×2 (10:02→22:19)
[2020-05-24] MEDS: ASPIRIN 81 MG TABLET, CHEWABLE PO SCH (10:02)
[2020-05-24] MEDS: METOLAZONE 5 MG TABLET PO SCH (10:02)
[2020-05-24] MEDS: FERROUS SULFATE 325 MG TABLET PO SCH (10:02)
[2020-05-24] MEDS: LISINOPRIL 5 MG TABLET PO SCH (10:02)
[2020-05-24] MEDS: POLYETHYLENE GLYCOL 3350 POWDER 17 GM/1 PACKET PO SCH (10:02)
[2020-05-24] MEDS: SENNOSIDES/DOCUSATE 8.6-50 MG 1 EACH TABLET PO SCH ×2 (10:02→17:04)
[2020-05-24] MEDS: ENOXAPARIN SODIUM INJ 40 MG/0.4 ML DISP.SYRIN SUBCUT SCH (10:03)
--- NOTE | 2020-05-24 18:57 | PDOC DISCHARGE SUMMARY ---
Impression - Admit/DC Date/PCP Admission Date/Primary Care Provider: 05/16/20 20:02 LARRY ARRIAZA DO Discharge Date: 05/24/20 - Discharge Diagnosis (1) Acute combined systolic (congestive) and diastolic (congestive) heart failure Is this a current diagnosis for this admission?: Yes (2) Anasarca Is this a current diagnosis for this admission?: Yes (3) Hypertension Is this a current diagnosis for this admission?: Yes (4) Hyponatremia Is this a current diagnosis for this admission?: Yes (5) Iron deficiency anemia Is this a current diagnosis for this admission?: Yes (6) Morbid obesity with BMI of 40.0-44.9, adult Is this a current diagnosis for this admission?: Yes (7) Proteinuria Is this a current diagnosis for this admission?: Yes (8) Diabetes mellitus type 2 in obese Is this a current diagnosis for this admission?: Yes (9) Elevated troponin Is this a current diagnosis for this admission?: Yes (10) History of CVA (cerebrovascular accident) Is this a current diagnosis for this admission?: Yes (11) Hypokalemia Is this a current diagnosis for this admission?: Yes (12) Noncompliance with medication regimen Is this a current diagnosis for this admission?: Yes - Assessment Summary: Lasix 80mg PO BID + Metolazone 5mg PO daily, goal weight 80kg. Plan to dc with home health for medication compliance. - Additional Information Resuscitation Status: Do Not Resuscitate Discharge Diet: Cardiac, Diabetic Discharge Activity: Activity As Tolerated, Balance Activity w/Rest Referrals: LARRY ARRIAZA DO [Primary Care Provider] - 06/01/20 9:30 am () Prescriptions: Spironolactone [Aldactone 25 mg Tablet] 25 mg PO Q12 30 Days #60 tablet Aspirin [Aspirin 81 mg Chewable Tablet] 81 mg PO DAILY 60 Days #60 tab.chew Ferrous Sulfate [Feosol 325 mg Tablet] 325 mg PO DAILY 60 Days #60 tablet Levetiracetam [Keppra 500 mg Tablet] 500 mg PO Q12 30 Days #60 tablet Furosemide [Lasix 80 mg Tablet] 80 mg PO BID 60 Days #60 tablet Atorvastatin Calcium [Lipitor 40 mg Tablet] 40 mg PO QHS 60 Days #60 tablet Lisinopril [Prinivil 5 mg Tablet] 5 mg PO DAILY 60 Days #60 tablet Metoprolol Succinate [Toprol Xl 50 mg Tab.sr] 100 mg PO DAILY 60 Days #60 tab.sr.24h Metolazone [Zaroxolyn 5 mg Tablet] 5 mg PO DAILY 60 Days #60 tablet Home Medications: Aspirin [Aspirin 81 mg Chewable Tablet] 81 mg PO DAILY 60 Days #60 tab.chew 05/24/20 Atorvastatin Calcium [Lipitor 40 mg Tablet] 40 mg PO QHS 60 Days #60 tablet 05/24/20 Ferrous Sulfate [Feosol 325 mg Tablet] 325 mg PO DAILY 60 Days #60 tablet 05/24/20 Furosemide [Lasix 80 mg Tablet] 80 mg PO BID 60 Days #60 tablet 05/24/20 Levetiracetam [Keppra 500 mg Tablet] 500 mg PO Q12 30 Days #60 tablet 05/24/20 Lisinopril [Prinivil 5 mg Tablet] 5 mg PO DAILY 60 Days #60 tablet 05/24/20 Metolazone [Zaroxolyn 5 mg Tablet] 5 mg PO DAILY 60 Days #60 tablet 05/24/20 Metoprolol Succinate [Toprol Xl 50 mg Tab.sr] 100 mg PO DAILY 60 Days #60 tab.sr.24h 05/24/20 Spironolactone [Aldactone 25 mg Tablet] 25 mg PO Q12 30 Days #60 tablet 05/24/20 History of Present Illiness History of Present Illness: PHILLIP DORANTES is a 49 year old female, with a history of combined systolic and diastolic heart failure, type 2 diabetes, history of CVA with right-sided hemiplegia, hypertension, seizure disorder, obesity and medication noncompliance now presents to the ER with worsening shortness of breath and generalized body swelling. Patient is a poor historian and is unable to remember the details but she states that over the past few months she has been progressively getting winded and in the last week the shortness of breath got really worse with associated orthopnea. She states that she is wheelchair-bound at home but unable to specify for how long has she been on a wheelchair. She denies any chest pain, cough, fever, chills, nausea, vomiting, abdominal pain, diarrhea, dysuria, urgency or frequency of urination. Patient also reports that her son luis bocanegraes her her daily medication but does not know what medications she is on or if she has been missing doses. She denies any recent sick contact history. She was started on diuresis initially with lasix then metolazone was added. She lost about 20 kg since being admitted and has been weaned off oxygen. She is currently at 82 kg body weight which is very close to her dry weight of 80 kg. Hospital Course Hospital Course: She was started on diuresis initially with lasix then metolazone was added. She was transitioned to oral diretics on the 3rd day of her admission. She lost about 20 kg since being admitted and has been weaned off oxygen. CXR showed cardiomegaly with bilateral pleural effusion 05/16 .She is currently at 82 kg body weight which is very close to her dry weight of 80 kg. Physical Exam Vital Signs: Temp Pulse Resp BP Pulse Ox 98.0 F 72 16 113/70 100 05/24/20 15:16 05/24/20 15:16 05/24/20 15:16 05/24/20 15:16 05/24/20 15:16 Intake & Output 05/23/20 05/24/20 05/25/20 06:59 06:59 06:59 Intake Total 836 640 Output Total 5200 6400 Balance -7777 -0461 Weight 85.7 kg 94.5 kg General appearance: PRESENT: no acute distress, cooperative Head exam: PRESENT: atraumatic, normocephalic Eye exam: PRESENT: EOMI, PERRLA Mouth exam: PRESENT: moist Neck exam: PRESENT: full ROM Respiratory exam: PRESENT: clear to auscultation ac, symmetrical, unlabored Cardiovascular exam: PRESENT: RRR, +S1, +S2 Pulses: PRESENT: +2 pedal pulses bilateral GI/Abdominal exam: PRESENT: normal bowel sounds, soft. ABSENT: rebound, tenderness Extremities exam: PRESENT: +2 edema, other - She is wheelchair-bound at baseline Musculoskeletal exam: PRESENT: other - He is nonambulatory Neurological exam: PRESENT: other - Mild cognitive impairment Psychiatric exam: PRESENT: normal mood Results Laboratory Results: WBC 4.6 10^3/uL (4.0-10.5) 05/24/20 04:54 RBC 3.79 10^6/uL (3.72-5.28) 05/24/20 04:54 Hgb 9.9 g/dL (12.0-15.5) L 05/24/20 04:54 Hct 30.4 % (36.0-47.0) L 05/24/20 04:54 MCV 80 fl (80-97) 05/24/20 04:54 MCH 26.1 pg (27.0-33.4) L 05/24/20 04:54 MCHC 32.6 g/dL (32.0-36.0) 05/24/20 04:54 RDW 20.2 % (11.5-14.0) H 05/24/20 04:54 Plt Count 252 10^3/uL (150-450) 05/24/20 04:54 Lymph % (Auto) 23.1 % (13-45) 05/16/20 14:30 [place] % (Auto) 7.2 % (3-13) 05/16/20 14:30 Eos % (Auto) 2.5 % (0-6) 05/16/20 14:30 Baso % (Auto) 1.3 % (0-2) 05/16/20 14:30 Reticulocyte # 0.072 10^6/uL (0.028-0.122) 05/21/20 04:07 Absolute Neuts (auto) 2.8 10^3/uL (1.7-8.2) 05/16/20 14:30 Absolute Lymphs (auto) 1.0 10^3/uL (0.5-4.7) 05/16/20 14:30 Absolute Monos (auto) 0.3 10^3/uL (0.1-1.4) 05/16/20 14:30 Absolute Eos (auto) 0.1 10^3/uL (0.0-0.6) 05/16/20 14:30 Absolute Basos (auto) 0.1 10^3/uL (0.0-0.2) 05/16/20 14:30 Seg Neutrophils % 65.9 % (42-78) 05/16/20 14:30 Retic Count (auto) 2.00 % (0.66-2.85) 05/21/20 04:07 PT 16.5 SEC (11.4-15.4) H 05/16/20 17:55 INR 1.31 05/16/20 17:55 Sodium 136.4 mmol/L (137-145) L 05/24/20 04:54 Potassium 3.7 mmol/L (3.6-5.0) 05/24/20 04:54 Chloride 93 mmol/L (98-107) L 05/24/20 04:54 Carbon Dioxide 34 mmol/L (22-30) H 05/24/20 04:54 Anion Gap 9 (5-19) 05/24/20 04:54 BUN 23 mg/dL (7-20) H 05/24/20 04:54 Creatinine 1.08 mg/dL (0.52-1.25) 05/24/20 04:54 Est GFR ( Amer) > 60 (>60) 05/24/20 04:54 Est GFR (Non-Af Amer) Cancelled 05/16/20 16:15 Est GFR (MDRD) Non-Af 54 (>60) L 05/24/20 04:54 Glucose 121 mg/dL (75-110) H 05/24/20 04:54 POC Glucose 138 mg/dL (70-110) H 05/24/20 15:19 Hemoglobin A1c % 6.8 % (4.7-6.0) H 05/17/20 09:34 Calcium 8.7 mg/dL (8.4-10.2) 05/24/20 04:54 Magnesium 1.7 mg/dL (1.6-2.3) 05/21/20 04:07 Iron 16.1 ug/dL (37-170) L 05/21/20 04:07 TIBC 348 ug/dL (250-450) 05/21/20 04:07 % Saturation 5 % 05/21/20 04:07 Ferritin 11.70 ng/mL (6.2-137.0) 05/21/20 04:07 Total Bilirubin 3.4 mg/dL (0.2-1.3) H 05/17/20 06:37 Direct Bilirubin 2.1 mg/dL (0.0-0.4) H 05/17/20 06:37 Neonat Total Bilirubin Not Reportable 05/17/20 06:37 Neonat Direct Bilirubin Not Reportable 05/17/20 06:37 Neonat Indirect Bili Not Reportable 05/17/20 06:37 AST 32 U/L (14-36) 05/17/20 06:37 ALT 13 U/L (<35) 05/17/20 06:37 Alkaline Phosphatase 130 U/L (38-126) H 05/17/20 06:37 Creatine Kinase 203 U/L (30-135) H 05/16/20 14:30 Troponin I 0.020 ng/mL 05/20/20 21:34 NT-Pro-B Natriuret Pep 2170 pg/mL (<125) H 05/21/20 04:07 Total Protein 7.6 g/dL (6.3-8.2) 05/17/20 06:37 Albumin 3.0 g/dL (3.5-5.0) L 05/17/20 06:37 Triglycerides 76 mg/dL (<150) 05/17/20 06:37 Cholesterol 127.46 mg/dL (0-200) 05/17/20 06:37 LDL Cholesterol Direct 68 mg/dL (<100) 05/17/20 06:37 VLDL Cholesterol 15.0 mg/dL (10-31) 05/17/20 06:37 HDL Cholesterol 36 mg/dL (>40) L 05/17/20 06:37 EGFR Cancelled 05/16/20 16:15 Vitamin B12 440.0 pg/mL (239-931) 05/21/20 04:07 Vitamin D 25-Hydroxy 16.5 ng/mL (14.7-68.3) 05/21/20 04:07 Folate 7.99 ng/mL (>2.76) 05/21/20 04:07 TSH 4.55 uIU/mL (0.47-4.68) 05/16/20 16:15 Urine Color TERESA 05/16/20 15:37 Urine Appearance SLIGHTLY-CLOUDY 05/16/20 15:37 Urine pH 5.0 (5.0-9.0) 05/16/20 15:37 Ur Specific [place] 1.030 05/16/20 15:37 Urine Protein >=500 mg/dL (NEGATIVE) H 05/16/20 15:37 Urine Glucose (UA) NEGATIVE mg/dL (NEGATIVE) 05/16/20 15:37 Urine Ketones NEGATIVE mg/dL (NEGATIVE) 05/16/20 15:37 Urine Blood SMALL (NEGATIVE) H 05/16/20 15:37 Urine Nitrite NEGATIVE (NEGATIVE) 05/16/20 15:37 Urine Bilirubin SMALL (NEGATIVE) H 05/16/20 15:37 Urine Urobilinogen 4.0 mg/dL (<2.0) H 05/16/20 15:37 Ur Leukocyte Esterase NEGATIVE (NEGATIVE) 05/16/20 15:37 Urine WBC (Auto) 3 /HPF 05/16/20 15:37 Urine RBC (Auto) 4 /HPF 05/16/20 15:37 U Hyaline Cast (Auto) 8 /LPF 05/16/20 15:37 Urine Bacteria (Auto) TRACE /HPF 05/16/20 15:37 Squamous Epi Cells Auto 5 /HPF 05/16/20 15:37 Calcium Oxalate Cr Auto MODERATE /HPF 05/16/20 15:37 Urine Mucus (Auto) MANY /LPF 05/16/20 15:37 Urine Creatinine 10.7 mg/dL (15-278) L 05/16/20 21:20 Urine Total Protein 27.5 mg/dL (<12) H 05/16/20 21:20 Urine Ascorbic Acid NEGATIVE (NEGATIVE) 05/16/20 15:37 05/16/20 05/16/20 05/17/20 14:30 22:19 06:37 Troponin I 0.037 0.039 0.031 NT-Pro-B Natriuret Pep 4030 H 05/18/20 05/19/20 05/20/20 04:50 04:52 21:34 Troponin I 0.020 NT-Pro-B Natriuret Pep 3210 H 2410 H 05/21/20 04:07 Troponin I NT-Pro-B Natriuret Pep 2170 H Impressions: Chest X-Ray 05/16/20 14:16 IMPRESSION: Persistent bilateral pleural effusion underlying atelectasis cannot be excluded. Stable cardiomegaly. Stroke Is this a Stroke Patient?: No Acute Heart Failure Is this a Heart Failure Patient?: Yes Documentation of LVEF assessment?: Yes LVEF: LVEF Less Than or Equal to 40% Anticoagulant Therapy: N/A Reason(s) not Discharged on Anticoagulant Therapy: Risk for bleeding Discharged on Evidence-Based Beta Blockers: Yes Discharged on ARNI?: No-Document Contraindications Reason(s) not discharged on ARNI: ACEI use within the prior 36 hours Discharged on ARB?: Yes Discharged on ACEI?: N/A Discharged on ARB For LVEF <35%, discharged on Aldosterone Antagonist?: Yes Follow-up Appointment scheduled within 7 days?: Yes
[2020-05-24] MEDS: ATORVASTATIN CALCIUM 40 MG TABLET PO SCH (22:19)
[2020-05-25] MEDS: INSULIN REG, HUMAN 100 UNIT/ML 3 ML VIAL (PYX) SUBCUT SCH ×2 (08:22→12:39)
[2020-05-25] MEDS: ASPIRIN 81 MG TABLET, CHEWABLE PO SCH (09:29)
[2020-05-25] MEDS: FERROUS SULFATE 325 MG TABLET PO SCH (09:30)
[2020-05-25] MEDS: SENNOSIDES/DOCUSATE 8.6-50 MG 1 EACH TABLET PO SCH (09:30)
[2020-05-25] MEDS: FUROSEMIDE 80 MG TABLET PO SCH (09:30)
[2020-05-25] MEDS: FAMOTIDINE 20 MG TABLET PO SCH (09:31)
[2020-05-25] MEDS: LISINOPRIL 5 MG TABLET PO SCH (09:31)
[2020-05-25] MEDS: METOPROLOL SUCCINATE 50 MG TAB.SR.24H PO SCH (09:31)
[2020-05-25] MEDS: METOLAZONE 5 MG TABLET PO SCH (09:32)
[2020-05-25] MEDS: SPIRONOLACTONE 25 MG TABLET PO SCH (09:32)
[2020-05-25] MEDS: LEVETIRACETAM 500 MG TABLET PO SCH (09:32)
[2020-05-25] MEDS: POLYETHYLENE GLYCOL 3350 POWDER 17 GM/1 PACKET PO SCH (09:33)
[2020-05-25] MEDS: ENOXAPARIN SODIUM INJ 40 MG/0.4 ML DISP.SYRIN SUBCUT SCH (09:33)
[2020-05-25 10:56] VITALS: BP 117/73
== END 2020-05-25 12:35 | disposition home health service (06) | DRG 281 ==
LOC: ER 13:56 → EH 20:02 → 4N 05-17 04:30
PROVIDERS: ADMIT Student in an Organized Health Care Education/Training Program; ATTEND Internal Medicine
PROC: 05HN33Z Insertion of Infusion Device into Left Internal Jugular Vein, Percutaneous Approach (ICD-10-PCS; principal; 2020-05-16)
DX: I11.0 Hypertensive heart disease with heart failure (principal); I21.A1 Myocardial infarction type 2; Z68.41 Body mass index [BMI] 40.0-44.9, adult; E87.1 Hypo-osmolality and hyponatremia; I69.951 Hemiplegia and hemiparesis following unspecified cerebrovascular disease affecting right dominant side; R60.1 Generalized edema; I50.43 Acute on chronic combined systolic (congestive) and diastolic (congestive) heart failure; I25.2 Old myocardial infarction; E78.00 Pure hypercholesterolemia, unspecified; I25.10 Atherosclerotic heart disease of native coronary artery without angina pectoris; R06.03 Acute respiratory distress; E66.01 Morbid (severe) obesity due to excess calories; E11.21 Type 2 diabetes mellitus with diabetic nephropathy; E11.51 Type 2 diabetes mellitus with diabetic peripheral angiopathy without gangrene; D50.9 Iron deficiency anemia, unspecified; R80.9 Proteinuria, unspecified; R09.02 Hypoxemia; R77.8 Other specified abnormalities of plasma proteins; E87.6 Hypokalemia; G40.909 Epilepsy, unspecified, not intractable, without status epilepticus; K59.00 Constipation, unspecified; Z91.14 Patient's other noncompliance with medication regimen; Z79.82 Long term (current) use of aspirin; Z95.5 Presence of coronary angioplasty implant and graft; Z99.3 Dependence on wheelchair; Z23 Encounter for immunization
CPT/HCPCS: 36415; 71045; 80048; 80053; 80061; 81001; 82306; 82550; 82570; 82607; 82728; 82746; 82962; 83036; 83540; 83550; 83735; 83880; 84156; 84443; 84484; 85025; 85027; 85045; 85610; 90471; 90686; 93005; 93010; 96374; 99285; G0008; J1650; J1815; J1940; J3490; P9047

== ENCOUNTER 2020-06-05 15:16 | Inpatient (IN) | payer MEDICARE, MEDICAID ==
[2020-06-05 16:11] LABS: VENOUS BLOOD BASE EXCESS 7.9 mmol/L; VENOUS BLOOD HCO3 35.7 mmol/L (20-32); VENOUS BLOOD PCO2 61.4 mmHg (35-63); VENOUS BLOOD PH 7.38 (7.30-7.42)
[2020-06-05 16:17] LABS: ABSOLUTE BASOPHILS # (AUTO) 0.1 10^3/uL (0.0-0.2); ABSOLUTE LYMPHOCYTES (AUTO) 1.6 10^3/uL (0.5-4.7); ABSOLUTE MONOCYTES (AUTO) 0.9 10^3/uL (0.1-1.4); ABSOLUTE NEUT (AUTO) 6.5 10^3/uL (1.7-8.2); BASOPHILS % (AUTO) 0.6 % (0-2); EOSINOPHILS % (AUTO) 0.2 % (0-6); HEMATOCRIT 48.7 % (36.0-47.0); LYMPHOCYTES % (AUTO) 17.3 % (13-45); MEAN CORPUSCULAR HEMOGLOBIN 25.9 pg (27.0-33.4); MEAN CORPUSCULAR HGB CONC 32.8 g/dL (32.0-36.0); MEAN CORPUSCULAR VOLUME 79 fl (80-97); PLATELET COUNT 295 10^3/uL (150-450); RED BLOOD COUNT 6.17 10^6/uL (3.72-5.28); RED CELL DISTRIBUTION WIDTH 21.2 % (11.5-14.0); SEGMENTED NEUTROPHILS % (AUTO) 71.9 % (42-78); TOTAL CELLS COUNTED % (AUTO) 100 %; WHITE BLOOD COUNT 9.1 10^3/uL (4.0-10.5)
[2020-06-05 16:21] LABS: INTERNATIONAL RATION (INR) 1.07; PROTHROMBIN TIME 14.1 SEC (11.4-15.4)
--- NOTE | 2020-06-05 16:22 | RADIOLOGY REPORT (SQ) ---
EXAM DESCRIPTION: CHEST SINGLE VIEW IMAGES COMPLETED DATE/TIME: 06/05/2020 4:08 pm REASON FOR STUDY: COVID COMPARISON: 05/16/2020. EXAM PARAMETERS: NUMBER OF VIEWS: One view. TECHNIQUE: Single frontal radiographic view of the chest acquired. RADIATION DOSE: NA LIMITATIONS: None. FINDINGS: LUNGS AND PLEURA: Improved aeration with virtually complete clearing of the previously see n airspace disease and pleural effusions. Minimal faint density in the right lung base. MEDIASTINUM AND HILAR STRUCTURES: No masses. Contour normal. HEART AND VASCULAR STRUCTURES: Cardiomegaly, unchanged. Normal vasculature. BONES: No acute findings. HARDWARE: Cardiac recorder. OTHER: No other significant finding. IMPRESSION: IMPROVED APPEARANCE OF THE CHEST WITH CLEARING OF THE PLEURAL EFFUSIONS AND ALMOST COMPL ETE CLEARING OF THE BILATERAL AIRSPACE DISEASE. TECHNICAL DOCUMENTATION: JOB ID: [id number] [employer]- All Rights Reserved Reading location - IP/workstation name: [email or web address]
--- NOTE | 2020-06-05 17:14 | ER Document Report ---
ED Respiratory Problem - General Mode of Arrival: Medic Information source: Patient, Relative TRAVEL OUTSIDE OF THE [place] IN LAST 30 DAYS: No <HECTOR MALDONADO - Last Filed: 06/05/20 21:38> <MOISÉS PALACIO - Last Filed: 06/06/20 00:51> - General Chief Complaint: Shortness Of Breath Stated Complaint: SHORTNESS OF BREATH Time Seen by Provider: 06/05/20 15:33 Primary Care Provider: LARRY ARRIAZA DO [NO LOCAL MD] - Follow up as needed - HPI Notes: 49-year-old female presents to ED accompanied by mass for evaluation of positive Covid test. Patient was seen at [facility] earlier today and had been outside for prolonged period of time. Patient had tested positive for Covid however was brought in by EMS as they had trouble obtaining her oxygen saturation due to cold extremities. They state that she was with her son however due to this finding EMS was called and she was brought in. EMS states that they were able to obtain an oxygen saturation that was 98% however they still brought her here for further evaluation. Patient herself is a poor historian due to stroke history. She is unable to provide much collateral information. Information that I obtained is due to chart review as well as contacting her son. Patient has a history of systolic and diastolic congestive heart failure as well as anasarca. Patient is contracted on the right side due to prior stroke. She denies any particular complaints when questioned. Denies any chest pain or shortness of breath. Denies dysuria or hematuria. Denies abdominal pain. Unable to obtain information about medication compliance. (HECTOR MALDONADO) - Related Data Allergies/Adverse Reactions: No Known Allergies Allergy (Verified 06/05/20 16:10) Past Medical History - General Information source: Relative Cannot obtain history due to: Other - Prior stroke history. - Social History Smoking Status: Unknown if Ever Smoked Family History: Reviewed & Not Pertinent, DM, Other Patient has homicidal ideation: No - Past Medical History Cardiac Medical History: Reports: Hx Congestive Heart Failure, Hx Coronary Artery Disease, Hx Heart Attack, Hx Hypercholesterolemia, Hx Hypertension, Hx Heart Murmur Pulmonary Medical History: Denies: Hx Asthma, Hx COPD Neurological Medical History: Reports: Hx Cerebrovascular Accident, Hx Seizures Endocrine Medical History: Reports: Hx Diabetes Mellitus Type 2. Denies: Hx Diabetes Mellitus Type 1, Hx Hyperthyroidism, Hx Hypothyroidism Renal/ Medical History: Denies: Hx Peritoneal Dialysis GI Medical History: Denies: Hx Cirrhosis, Hx Hepatitis Musculoskeletal Medical History: Denies Hx Arthritis, Denies Hx Gout Skin Medical History: Denies Hx Eczema, Denies Hx Psoriasis Psychiatric Medical History: Denies: Hx Depression Infectious Medical History: Denies: Hx Hepatitis Past Surgical History: Reports: Hx Cardiac Catheterization, Hx Cholecystectomy, Hx Coronary Stent - Immunizations Hx Diphtheria, Pertussis, Tetanus Vaccination: Yes <HECTOR MALDONADO - Last Filed: 06/05/20 21:38> Review of Systems - Review of Systems -: Yes ROS unobtainable due to patient's medical condition - Patient can answer limited amount of questions due to her underlying stroke <HECTOR MALDONADO - Last Filed: 06/05/20 21:38> Physical Exam <HECTOR MALDONADO - Last Filed: 06/05/20 21:38> - Vital signs Vitals: Temp Pulse Resp BP Pulse Ox 97.7 F 84 16 116/70 98 06/05/20 15:32 06/05/20 15:32 06/05/20 15:32 06/05/20 15:32 06/05/20 15:32 General: No acute distress. Alert and oriented x2. Sitting comfortably in a stretcher. Contracted on the right side Skin: Cold and dry extremities noted. HEENT: Normocephalic, atraumatic. Pupils are equal round reactive to light and accommodation. Extraocular movements are intact. TMs without erythema or bulging. Canals are clear. Nares patent without any discharge. Poor dentition. Pharynx without erythema, edema, or exudates. Mucous membranes dry. No tonsillar enlargement. Uvula is midline. Airway is patent. Neck: Supple with no lymphadenopathy. Full range of motion. Heart: Rate regularly irregular. No murmurs, rubs, or gallops. Lungs: Clear to auscultation bilaterally. No wheezes, rhonchi, rales. Equal chest expansion. No retractions. Abdomen: Excess skin noted. Soft, nontender to palpation, nondistended. Positive bowel sounds in all 4 quadrants. No masses. No CVA tenderness bilaterally. Back: No midline spinal TTP. No paraspinous muscular TTP. Neuro: GCS 15. Contracted right upper extremity and decreased range of motion to the right lower extremity. Psych: Mood and affect appropriate. (HECTOR MALDONADO) Course - Laboratory Results Result Diagrams: 06/05/20 15:55 06/05/20 21:07 Critical Laboratory Results Reviewed: No Critical Results - EKG Interpretation by Me Rhythm: NSR, PVC's [place]/QRS: Left axis deviation Voltage: Consistent with LVH When compared to previous EKG there are: Changes noted, Other - Please see documentation in MDM <HECTOR MALDONADO - Last Filed: 06/05/20 21:38> - Laboratory Results Result Diagrams: 06/05/20 15:55 06/05/20 21:07 Critical Laboratory Results Reviewed: Yes Attending or Supervising Physician who Reviewed Labs: BONNIE JEROME K+ 2.6, replaced, pt admitted - Radiology Results Critical Radiology Results Reviewed: No Critical Results <MOISÉS PALACIO - Last Filed: 06/06/20 00:51> - Re-evaluation Re-evalutation: 06/05/20 20:44 49-year-old female with history of stroke, congestive heart failure, anasarca, and hypertension presents to ED for evaluation of positive Covid test at [facility]. Patient had been waiting outside to go for follow-up from her prior discharge here with her primary care physician. Patient had tested positive and they had difficulty obtaining oxygen saturations subsequently sent her to the ED. EMS reports oxygen saturations were appropriate and brought her here for further evaluation. Patient endorses no complaints to me. Patient does have underlying stroke history which makes her communication difficult. On her arrival, I did attempt to contact her son [place] however all of the phone numbers listed in our computer system did not work. Eventually I did find a paper from EMS which stated an updated phone number and I was able to reach him for clarification. He informed me that they had waited outside for possibly 4 hours prior to their tested for Covid. They had taken the bus there. He believes that was the cause of her cold extremities. Patient was found to be fairly cold to the upper and lower extremities. Patient's core was warm and a rectal temp was 99.9 on arrival. We did apply warm blankets in order to rewarm her. Patient's oxygenation was difficult to obtain on arrival. We did apply hot packs to the hands and place her on supplemental oxygen to ensure no desaturation. Attempts were made to obtain blood several times as well as a chest x-ray. Chest x-ray does show marked improvement of prior congestive heart failure. She has clearing of her prior fluid effusions from prior. EKG was obtained.Multiple PVCs noted. Patient also has some depressions noted in II,III, patient also found to have changes in V2 and V3. Also appeared to be in a bigeminy rhythm. This is new from review of her priors. Discussed this with Dr. Jones upon his viewing the EKG. nursing staff as well as the lab had attempted to draw patient's blood work multiple times. Patient did have an elevated ammonia level of 87.4. Patient's lactic is negative and she has urine that is concerning for infection. Patient was started on antibiotics. Patient is still pending labs at the time of this dictation. Patient was signed out to MEGHAN Palacio for further management and disposition. (HECTOR MALDONADO) 06/06/20 00:03 Patient was accepted for admission by hospitalist, Dr. Talbert. (MOISÉS PALACIO) - Vital Signs Vital signs: Temp Pulse Resp BP Pulse Ox 99.9 F 82 20 119/74 100 06/05/20 16:17 06/05/20 16:17 06/06/20 00:01 06/06/20 00:01 06/06/20 00:15 - Laboratory Results Laboratory Results Interpreted: 06/05/20 06/05/20 06/05/20 15:55 15:55 17:25 RBC 6.17 H Hgb 16.0 H Hct 48.7 H MCV 79 L MCH 25.9 L RDW 21.2 H VBG HCO3 35.7 H Potassium BUN Creatinine Est GFR ( Amer) Est GFR (MDRD) Non-Af Calcium Total Bilirubin Direct Bilirubin AST Ammonia 87.4 H NT-Pro-B Natriuret Pep Albumin Urine Protein Urine Blood Urine Urobilinogen Leukocyte Esterase Rfl 06/05/20 06/05/20 06/05/20 19:07 21:07 21:07 RBC Hgb Hct MCV MCH RDW VBG HCO3 Potassium 2.6 L* BUN 86 H Creatinine 1.37 H Est GFR ( Amer) 50 L Est GFR (MDRD) Non-Af 41 L Calcium 7.2 L Total Bilirubin 2.4 H Direct Bilirubin 1.5 H AST 38 H Ammonia NT-Pro-B Natriuret Pep 2000 H Albumin 3.1 L Urine Protein 100 H Urine Blood SMALL H Urine Urobilinogen 4.0 H Leukocyte Esterase Rfl LARGE H Discharge <HECTOR MALDONADO - Last Filed: 06/05/20 21:38> - Discharge Admitting Provider: [facility] Unit Admitted: Medical Floor <MOISÉS PALACIO - Last Filed: 06/06/20 00:51> - Discharge Clinical Impression: Hypokalemia, COVID-19 UTI (urinary tract infection) Qualifiers: Urinary tract infection type: site unspecified Hematuria presence: without hematuria Qualified Code(s): N39.0 - Urinary tract infection, site not specified Condition: Stable Disposition: ADMITTED INPATIENT Referrals: LARRY ARRIAZA DO [NO LOCAL MD] - Follow up as needed
--- NOTE | 2020-06-05 17:58 | EKG REPORT ---
SEVERITY:- ABNORMAL ECG - SINUS RHYTHM MULTIPLE VENTRICULAR PREMATURE COMPLEXES LVH WITH SECONDARY REPOLARIZATION ABNORMALITY : Confirmed by: Virgil Webb 05-Jun-2020 17:57:24
[2020-06-05] MEDS ORDERED: NORMAL SALINE 500 ML IV ONE (19:47)
[2020-06-05 20:38] LABS: APPEARANCE,URINE CLOUDY; BILIRUBIN,URINE NEGATIVE (NEGATIVE); COLOR,URINE AMBER; GLUCOSE, URINE NEGATIVE (NEGATIVE); KETONES,URINE NEGATIVE (NEGATIVE); PROTEIN,URINE 100 mg/dL (NEGATIVE); URINE SPECIFIC GRAVITY 1.012
[2020-06-05] MEDS ORDERED: CEFTRIAXONE 1 GM/D5W RTU 1 GM/50 ML RTUPB IV ONE (20:51)
[2020-06-05 21:46] LABS: ALBUMIN 3.1 g/dL (3.5-5.0); ALKALINE PHOSPHATASE 117 U/L (38-126); ANION GAP 8 (5-19); ASPARTATE AMINO TRANSFERASE 38 U/L (14-36); BILIRUBIN,DIRECT 1.5 mg/dL (0.0-0.4); BILIRUBIN,TOTAL 2.4 mg/dL (0.2-1.3); BLOOD UREA NITROGEN 86 mg/dL (7-20); CALCIUM 7.2 mg/dL (8.4-10.2); CARBON DIOXIDE 28 mmol/L (22-30); CHLORIDE 103 mmol/L (98-107); CREATINE KINASE 53 U/L (30-135); GLUCOSE 105 mg/dL (75-110); TOTAL PROTEIN 7.5 g/dL (6.3-8.2)
[2020-06-05 21:48] LABS: POTASSIUM 2.6 mmol/L (3.6-5.0)
[2020-06-05] MEDS ORDERED: MAGNESIUM SULFATE/D5W 1 GM/100 ML RTUPB IV ONE (21:54)
[2020-06-05 21:56] LABS: TROPONIN I 0.05 ng/mL
[2020-06-05] MEDS ORDERED: POTASSIUM CHLORIDE 10 MEQ TABLET.ER PO ONE (22:02)
[2020-06-06] MEDS: POTASSI CL 20 MEQ/50 ML RIDER 20 MEQ/50 ML RTUPB IV SCH ×2 (00:06→02:27)
[2020-06-06] MEDS ORDERED: ACETAMINOPHEN 325 MG TABLET PO PRN (01:56)
[2020-06-06] MEDS ORDERED: DEXTROSE 50%-WATER 25 GM/50 ML DISP.SYRIN IV PRN ×2 (02:19)
[2020-06-06] MEDS ORDERED: DEXTROSE 40% GEL 15 GM TUBE PO PRN ×2 (02:19)
[2020-06-06] MEDS ORDERED: GLUCAGON,HUMAN RECOMB 1 MG INJ IM PRN (02:19)
[2020-06-06 05:45] LABS: ABSOLUTE LYMPHOCYTES (AUTO) 1.5 10^3/uL (0.5-4.7); ABSOLUTE MONOCYTES (AUTO) 1.2 10^3/uL (0.1-1.4); ABSOLUTE NEUT (AUTO) 5.5 10^3/uL (1.7-8.2); BASOPHILS % (AUTO) 0.4 % (0-2); EOSINOPHILS % (AUTO) 0.4 % (0-6); HEMATOCRIT 50.3 % (36.0-47.0); HEMOGLOBIN 16.3 g/dL (12.0-15.5); LYMPHOCYTES % (AUTO) 17.9 % (13-45); MEAN CORPUSCULAR HEMOGLOBIN 25.9 pg (27.0-33.4); MEAN CORPUSCULAR HGB CONC 32.4 g/dL (32.0-36.0); MEAN CORPUSCULAR VOLUME 80 fl (80-97); MONOCYTES % (AUTO) 14.8 % (3-13); PLATELET COUNT 216 10^3/uL (150-450); RED CELL DISTRIBUTION WIDTH 21.5 % (11.5-14.0); SEGMENTED NEUTROPHILS % (AUTO) 66.5 % (42-78); TOTAL CELLS COUNTED % (AUTO) 100 %; WHITE BLOOD COUNT 8.3 10^3/uL (4.0-10.5)
--- NOTE | 2020-06-06 07:41 | PDOC H&P ---
History of Present Illness Admission Date/PCP: 06/06/20 01:14 BYRON REBOLLEDO-Zach Patient complains of: Weakness and confusion History of Present Illness: PHILLIP DORANTES is a 49 year old female The patient is chronically debilitated secondary to previous cerebrovascular accident causing debilitating right-sided hemiparesis. She is suffering from congestive heart failure. She has history of current urinary tract infections, no history of multidrug-resistant organism. She was brought to the emergency department because confusion and weakness. She had no respiratory symptoms. She tested positive for coronavirus. She was diagnosed with urinary tract infection and hypokalemia. She was started on ceftriaxone and potassium replacement in the emergency department. When I saw her she did not appear to be in any major distress. Past Medical History Cardiac Medical History: Reports: Congestive Heart Failure, Coronary Artery Disease, Myocardial Infarction, Hyperlipidema, Hypertension, Heart Murmur Pulmonary Medical History: Denies: Asthma, Chronic Obstructive Pulmonary Disease (COPD) Neurological Medical History: Reports: Ischemic CVA, Seizures Endocrine Medical History: Reports: Diabetes Mellitus Type 2 Denies: Diabetes Mellitus Type 1, Hyperthyroidism, Hypothyroidism Malignancy Medical History: Reports: None GI Medical History: Denies: Cirrhosis, Hepatitis Musculoskeltal Medical History: Denies: Arthritis, Gout Skin Medical History: Denies: Eczema, Psoriasis Psychiatric Medical History: Denies: Depression Hematology: Denies: Anemia, Bleeding Tendencies Past Surgical History Past Surgical History: Reports: Cardiac Catheterization, Cholecystectomy, Coronary Stent Social History Lives with: Family Smoking Status: Never Smoker Frequency of Alcohol Use: None Hx Recreational Drug Use: No Drugs: None Hx Prescription Drug Abuse: No Family History Family History: Reviewed & Not Pertinent, DM, Other Parental Family History Reviewed: Yes Children Family History Reviewed: Yes Sibling(s) Family History Reviewed.: Yes Medication/Allergy Home Medications: Aspirin [Aspirin 81 mg Chewable Tablet] 81 mg PO DAILY 60 Days #60 tab.chew 05/24/20 Atorvastatin Calcium [Lipitor 40 mg Tablet] 40 mg PO QHS 60 Days #60 tablet 05/24/20 Ferrous Sulfate [Feosol 325 mg Tablet] 325 mg PO DAILY 60 Days #60 tablet 05/24/20 Furosemide [Lasix 80 mg Tablet] 80 mg PO BID 60 Days #60 tablet 05/24/20 Levetiracetam [Keppra 500 mg Tablet] 500 mg PO Q12 30 Days #60 tablet 05/24/20 Lisinopril [Prinivil 5 mg Tablet] 5 mg PO DAILY 60 Days #60 tablet 05/24/20 Metolazone [Zaroxolyn 5 mg Tablet] 5 mg PO DAILY 60 Days #60 tablet 05/24/20 Metoprolol Succinate [Toprol Xl 50 mg Tab.sr] 100 mg PO DAILY 60 Days #60 tab.sr.24h 05/24/20 Spironolactone [Aldactone 25 mg Tablet] 25 mg PO Q12 30 Days #60 tablet 05/24/20 Allergies/Adverse Reactions: No Known Allergies Allergy (Verified 06/05/20 16:10) Review of Systems Constitutional: PRESENT: weakness, other - Chronically debilitated and nonambulatory. Eyes: ABSENT: visual disturbances Cardiovascular: ABSENT: chest pain, dyspnea on exertion, edema, orthropnea, palpitations Respiratory: ABSENT: cough, hemoptysis Gastrointestinal: ABSENT: abdominal pain, diarrhea, nausea, vomiting Integumentary: ABSENT: rash Neurological: PRESENT: confusion - Had some confusion., focal weakness - Chronic right hemiparesis with contractures. Physical Exam Vital Signs: Temp Pulse Resp BP Pulse Ox 98.7 F 117 H 16 121/77 100 06/06/20 02:30 06/06/20 02:30 06/06/20 02:30 06/06/20 02:30 06/06/20 02:30 Intake & Output 06/05/20 06/06/20 06/07/20 06:59 06:59 06:59 Intake Total 750 Balance 750 Weight 56.7 kg General appearance: PRESENT: no acute distress, thin Head exam: PRESENT: atraumatic Eye exam: PRESENT: conjunctiva pink, EOMI, PERRLA. ABSENT: scleral icterus Ear exam: PRESENT: normal external ear exam Mouth exam: PRESENT: moist, tongue midline Neck exam: ABSENT: carotid bruit, JVD, thyromegaly Respiratory exam: PRESENT: clear to auscultation ac. ABSENT: accessory muscle use Cardiovascular exam: PRESENT: RRR Pulses: PRESENT: normal radial pulses, normal dorsalis pedis pul Vascular exam: PRESENT: normal capillary refill GI/Abdominal exam: PRESENT: soft - Nontender, no organomegaly or mass. Extremities exam: PRESENT: other - Right upper and lower extremity are contracted. Musculoskeletal exam: PRESENT: other - Chronic right upper and lower extremity deformity Neurological exam: PRESENT: alert, oriented to person, oriented to place, oriented to situation, motor sensory deficit - Right-sided hemiparesis Psychiatric exam: PRESENT: flat affect Results Laboratory Results: 06/06/20 04:46 06/06/20 04:46 06/05/20 06/05/20 06/05/20 15:55 15:55 15:55 WBC 9.1 RBC 6.17 H Hgb 16.0 H Hct 48.7 H MCV 79 L MCH 25.9 L MCHC 32.8 RDW 21.2 H Plt Count 295 Seg Neutrophils % 71.9 VBG pH 7.38 VBG pCO2 61.4 VBG HCO3 35.7 H VBG Base Excess 7.9 Sodium Cancelled Potassium Cancelled Chloride Cancelled Carbon Dioxide Cancelled Anion Gap Cancelled BUN Cancelled Creatinine Cancelled Est GFR ( Amer) Cancelled Est GFR (Non-Af Amer) Cancelled Glucose Cancelled Lactic Acid Calcium Cancelled Magnesium Cancelled Total Bilirubin Cancelled AST Cancelled Alkaline Phosphatase Cancelled Ammonia Total Protein Cancelled Albumin Cancelled TSH Urine Color Urine Appearance Urine pH Ur Specific [place] Urine Protein Urine Glucose (UA) Urine Ketones Urine Blood Urine RBC (Auto) 06/05/20 06/05/20 06/05/20 15:55 15:55 17:25 WBC RBC Hgb Hct MCV MCH MCHC RDW Plt Count Seg Neutrophils % VBG pH VBG pCO2 VBG HCO3 VBG Base Excess Sodium Potassium Chloride Carbon Dioxide Anion Gap BUN Creatinine Est GFR ( Amer) Est GFR (Non-Af Amer) Glucose Lactic Acid Cancelled Calcium Magnesium Total Bilirubin AST Alkaline Phosphatase Ammonia Cancelled 87.4 H Total Protein Albumin TSH Urine Color Urine Appearance Urine pH Ur Specific [place] Urine Protein Urine Glucose (UA) Urine Ketones Urine Blood Urine RBC (Auto) 06/05/20 06/05/20 06/05/20 19:07 19:40 19:48 WBC RBC Hgb Hct MCV MCH MCHC RDW Plt Count Seg Neutrophils % VBG pH VBG pCO2 VBG HCO3 VBG Base Excess Sodium Cancelled Potassium Cancelled Chloride Cancelled Carbon Dioxide Cancelled Anion Gap Cancelled BUN Cancelled Creatinine Cancelled Est GFR ( Amer) Cancelled Est GFR (Non-Af Amer) Cancelled Glucose Cancelled Lactic Acid 1.7 Calcium Cancelled Magnesium Cancelled Total Bilirubin Cancelled AST Cancelled Alkaline Phosphatase Cancelled Ammonia Total Protein Cancelled Albumin Cancelled TSH Urine Color [place] Urine Appearance CLOUDY Urine pH 5.0 Ur Specific [place] 1.012 Urine Protein 100 H Urine Glucose (UA) NEGATIVE Urine Ketones NEGATIVE Urine Blood SMALL H Urine RBC (Auto) 1 06/05/20 06/06/20 06/06/20 21:07 04:46 04:46 WBC 8.3 RBC 6.30 H Hgb 16.3 H Hct 50.3 H MCV 80 MCH 25.9 L MCHC 32.4 RDW 21.5 H Plt Count 216 Seg Neutrophils % 66.5 VBG pH VBG pCO2 VBG HCO3 VBG Base Excess Sodium 138.8 Cancelled Potassium 2.6 L* Cancelled Chloride 103 Cancelled Carbon Dioxide 28 Cancelled Anion Gap 8 Cancelled BUN 86 H Cancelled Creatinine 1.37 H Cancelled Est GFR ( Amer) 50 L Cancelled Est GFR (Non-Af Amer) Cancelled Glucose 105 Cancelled Lactic Acid Calcium 7.2 L Cancelled Magnesium 1.6 Cancelled Total Bilirubin 2.4 H Cancelled AST 38 H Cancelled Alkaline Phosphatase 117 Cancelled Ammonia Total Protein 7.5 Cancelled Albumin 3.1 L Cancelled TSH Urine Color Urine Appearance Urine pH Ur Specific [place] Urine Protein Urine Glucose (UA) Urine Ketones Urine Blood Urine RBC (Auto) 06/06/20 04:46 WBC RBC Hgb Hct MCV MCH MCHC RDW Plt Count Seg Neutrophils % VBG pH VBG pCO2 VBG HCO3 VBG Base Excess Sodium Potassium Chloride Carbon Dioxide Anion Gap BUN Creatinine Est GFR ( Amer) Est GFR (Non-Af Amer) Glucose Lactic Acid Calcium Magnesium Total Bilirubin AST Alkaline Phosphatase Ammonia Total Protein Albumin TSH Cancelled Urine Color Urine Appearance Urine pH Ur Specific [place] Urine Protein Urine Glucose (UA) Urine Ketones Urine Blood Urine RBC (Auto) 06/05/20 06/05/20 06/05/20 15:55 19:48 19:48 Creatine Kinase Cancelled Troponin I Cancelled Cancelled NT-Pro-B Natriuret Pep Cancelled Cancelled 06/05/20 06/05/20 06/05/20 21:07 21:07 23:53 Creatine Kinase 53 Troponin I 0.050 0.057 NT-Pro-B Natriuret Pep 2000 H EKG Comments: Sinus rhythm, left ventricular hypertrophy, PVCs Impressions: Chest X-Ray 06/05/20 15:38 IMPRESSION: IMPROVED APPEARANCE OF THE CHEST WITH CLEARING OF THE PLEURAL EFFUSIONS AND ALMOST COMPLETE CLEARING OF THE BILATERAL AIRSPACE DISEASE. Assessment and Plan - Diagnosis (1) UTI (urinary tract infection) Qualifiers: Urinary tract infection type: site unspecified Hematuria presence: without hematuria Qualified Code(s): N39.0 - Urinary tract infection, site not specified Is this a current diagnosis for this admission?: Yes Plan: Continue ceftriaxone. Urine and blood cultures are pending. (2) Hypokalemia Is this a current diagnosis for this admission?: Yes Plan: Potassium replacement. Monitor potassium level. Hold diuretics. metal stamper. (3) COVID-19 Is this a current diagnosis for this admission?: Yes Plan: She does not have any respiratory symptoms. Isolation protocol. (4) Chronic combined systolic and diastolic congestive heart failure Is this a current diagnosis for this admission?: Yes Plan: Hold diuretics. Heart failure is fully compensated. Resume diuretic when is necessary. (5) Anemia Qualifiers: Anemia type: unspecified type Qualified Code(s): D64.9 - Anemia, unspecified Is this a current diagnosis for this admission?: Yes Plan: Monitor hemoglobin. Anemia studies. (6) Coronary artery disease Qualifiers: Coronary Disease-Associated Artery/Lesion type: [place] artery [place] vs. transplanted heart: [place] heart Associated angina: without angina Qualified Code(s): I25.10 - Atherosclerotic heart disease of [place] coronary artery without angina pectoris Is this a current diagnosis for this admission?: Yes Plan: Continue dual antiplatelet therapy with aspirin and Plavix as it was recommended by her rubber compounder previously. The patient has cardiac stent in place. (7) Diabetes mellitus Qualifiers: Diabetes mellitus type: type 2 Diabetes mellitus custodial insulin use: without custodial use Diabetes mellitus complication status: without complication Qualified Code(s): E11.9 - Type 2 diabetes mellitus without complications Is this a current diagnosis for this admission?: Yes Plan: Diabetic diet. Monitor blood glucose. - Plan Summary Summary: The patient was admitted with acute urinary tract infection and hypokalemia. She has chronic congestive heart failure which is fully compensated. - Time Time Spent with patient: 35 or more minutes Medications reviewed and adjusted accordingly: Yes - Final medication reconciliation is pending. Anticipated Discharge Disposition: Home with Home Health Anticipated Discharge Timeframe: within 48 hours - Inpatient Certification I certify that my determination is in accordance with my understanding of Medicare's requirements for reasonable and necessary INPATIENT services [42 CFR 412.3e].: Yes Medical Necessity: Need For Continuous Telemetry Monitoring, Need for IV Antibiotics
[2020-06-06] MEDS ORDERED: METOPROLOL SUCCINATE 50 MG TAB.SR.24H PO SCH ×2 (10:00)
[2020-06-06 10:34] LABS: ALBUMIN 3.7 g/dL (3.5-5.0); ALKALINE PHOSPHATASE 169 U/L (38-126); ANION GAP 13 (5-19); ASPARTATE AMINO TRANSFERASE 46 U/L (14-36); BILIRUBIN,TOTAL 3.1 mg/dL (0.2-1.3); BLOOD UREA NITROGEN 98 mg/dL (7-20); CALCIUM 9.7 mg/dL (8.4-10.2); CARBON DIOXIDE 27 mmol/L (22-30); CHLORIDE 95 mmol/L (98-107); GLUCOSE 118 mg/dL (75-110); TOTAL PROTEIN 9.2 g/dL (6.3-8.2)
[2020-06-06 10:37] LABS: POTASSIUM 4.7 mmol/L (3.6-5.0)
[2020-06-06] MEDS: INSULIN LISPRO 100 UNIT/ML 3 ML VIAL SUBCUT SCH ×3 (10:41→17:58)
[2020-06-06] MEDS: LEVETIRACETAM 500 MG TABLET PO SCH ×2 (10:42→21:17)
[2020-06-06] MEDS: LISINOPRIL 5 MG TABLET PO SCH (10:42)
[2020-06-06] MEDS: ENOXAPARIN SODIUM INJ 40 MG/0.4 ML DISP.SYRIN SUBCUT SCH (10:42)
[2020-06-06] MEDS: ASPIRIN 81 MG TABLET, CHEWABLE PO SCH (10:42)
[2020-06-06] MEDS ORDERED: RINGERS SOLUTION,LACTATED 1,000 ML IV PRN (17:48)
[2020-06-06] MEDS ORDERED: NORMAL SALINE 1000 ML 1,000 ML IV ONE (17:48)
--- NOTE | 2020-06-06 17:56 | PDOC PROGRESS REPORT ---
Subjective Date:: 06/06/20 Subjective:: Patient is somewhat sleepy. Reason For Visit: UTI(URINARY TRACT INFECTION)HYPOKALEMIA Physical Exam Vital Signs: Temp Pulse Resp BP Pulse Ox 99.4 F 88 17 105/55 L 98 06/06/20 08:51 06/06/20 14:00 06/06/20 08:51 06/06/20 08:51 06/06/20 08:51 Intake & Output 06/05/20 06/06/20 06/07/20 06:59 06:59 06:59 Intake Total 750 Balance 750 Weight 56.7 kg General appearance: PRESENT: mild distress, well-developed Head exam: PRESENT: atraumatic, normocephalic Eye exam: PRESENT: conjunctiva pink Ear exam: PRESENT: normal external ear exam. ABSENT: bleeding, drainage Mouth exam: PRESENT: dry mucosa, tongue midline Respiratory exam: PRESENT: clear to auscultation ac, symmetrical, unlabored. ABSENT: rales, rhonchi, tachypnea, wheezes Cardiovascular exam: PRESENT: RRR - With occasional irregular beats, +S1, +S2. ABSENT: bradycardia, diastolic murmur, irregular rhythm, systolic murmur, tachycardia GI/Abdominal exam: PRESENT: normal bowel sounds, soft. ABSENT: distended, tenderness Rectal exam: PRESENT: deferred Extremities exam: ABSENT: pedal edema Musculoskeletal exam: PRESENT: normal inspection. ABSENT: deformity, dislocation Neurological exam: PRESENT: awake. ABSENT: alert - Somnolent Psychiatric exam: PRESENT: flat affect Results Laboratory Results: 06/06/20 04:46 06/06/20 09:02 06/05/20 06/05/20 06/05/20 17:25 19:07 19:40 WBC RBC Hgb Hct MCV MCH MCHC RDW Plt Count Seg Neutrophils % Sodium Potassium Chloride Carbon Dioxide Anion Gap BUN Creatinine Est GFR ( Amer) Est GFR (Non-Af Amer) Glucose Lactic Acid 1.7 Calcium Magnesium Total Bilirubin AST Alkaline Phosphatase Ammonia 87.4 H Total Protein Albumin TSH Urine Color [place] Urine Appearance CLOUDY Urine pH 5.0 Ur Specific [place] 1.012 Urine Protein 100 H Urine Glucose (UA) NEGATIVE Urine Ketones NEGATIVE Urine Blood SMALL H Urine RBC (Auto) 1 06/05/20 06/05/20 06/06/20 19:48 21:07 04:46 WBC 8.3 RBC 6.30 H Hgb 16.3 H Hct 50.3 H MCV 80 MCH 25.9 L MCHC 32.4 RDW 21.5 H Plt Count 216 Seg Neutrophils % 66.5 Sodium Cancelled 138.8 Potassium Cancelled 2.6 L* Chloride Cancelled 103 Carbon Dioxide Cancelled 28 Anion Gap Cancelled 8 BUN Cancelled 86 H Creatinine Cancelled 1.37 H Est GFR ( Amer) Cancelled 50 L Est GFR (Non-Af Amer) Cancelled Glucose Cancelled 105 Lactic Acid Calcium Cancelled 7.2 L Magnesium Cancelled 1.6 Total Bilirubin Cancelled 2.4 H AST Cancelled 38 H Alkaline Phosphatase Cancelled 117 Ammonia Total Protein Cancelled 7.5 Albumin Cancelled 3.1 L TSH Urine Color Urine Appearance Urine pH Ur Specific [place] Urine Protein Urine Glucose (UA) Urine Ketones Urine Blood Urine RBC (Auto) 06/06/20 06/06/20 06/06/20 04:46 04:46 09:02 WBC RBC Hgb Hct MCV MCH MCHC RDW Plt Count Seg Neutrophils % Sodium Cancelled 134.9 L Potassium Cancelled 4.7 D Chloride Cancelled 95 L Carbon Dioxide Cancelled 27 Anion Gap Cancelled 13 BUN Cancelled 98 H Creatinine Cancelled 1.46 H Est GFR ( Amer) Cancelled 46 L Est GFR (Non-Af Amer) Cancelled Glucose Cancelled 118 H Lactic Acid Calcium Cancelled 9.7 Magnesium Cancelled 2.3 Total Bilirubin Cancelled 3.1 H AST Cancelled 46 H Alkaline Phosphatase Cancelled 169 H Ammonia Total Protein Cancelled 9.2 H Albumin Cancelled 3.7 TSH Cancelled Urine Color Urine Appearance Urine pH Ur Specific [place] Urine Protein Urine Glucose (UA) Urine Ketones Urine Blood Urine RBC (Auto) 06/06/20 09:02 WBC RBC Hgb Hct MCV MCH MCHC RDW Plt Count Seg Neutrophils % Sodium Potassium Chloride Carbon Dioxide Anion Gap BUN Creatinine Est GFR ( Amer) Est GFR (Non-Af Amer) Glucose Lactic Acid Calcium Magnesium Total Bilirubin AST Alkaline Phosphatase Ammonia Total Protein Albumin TSH 0.82 Urine Color Urine Appearance Urine pH Ur Specific [place] Urine Protein Urine Glucose (UA) Urine Ketones Urine Blood Urine RBC (Auto) 06/05/20 06/05/20 06/05/20 15:55 19:48 19:48 Creatine Kinase Cancelled Troponin I Cancelled Cancelled NT-Pro-B Natriuret Pep Cancelled Cancelled 06/05/20 06/05/20 06/05/20 21:07 21:07 23:53 Creatine Kinase 53 Troponin I 0.050 0.057 NT-Pro-B Natriuret Pep 2000 H Impressions: Chest X-Ray 06/05/20 15:38 IMPRESSION: IMPROVED APPEARANCE OF THE CHEST WITH CLEARING OF THE PLEURAL EFFUSIONS AND ALMOST COMPLETE CLEARING OF THE BILATERAL AIRSPACE DISEASE. Assessment and Plan - Diagnosis (1) UTI (urinary tract infection) Qualifiers: Urinary tract infection type: site unspecified Hematuria presence: without hematuria Qualified Code(s): N39.0 - Urinary tract infection, site not specified Is this a current diagnosis for this admission?: Yes Plan: Continue ceftriaxone. Urine and blood cultures are pending. Preliminary shows gram-negative bacilli (2) Hypovolemia dehydration Is this a current diagnosis for this admission?: Yes Plan: Cautiously administer IV fluids. Blood pressure was low this afternoon so bolus was initiated. Continue to monitor intake and output (3) Hypokalemia Is this a current diagnosis for this admission?: Yes Plan: Potassium replacement. Monitor potassium level. Hold diuretics. engine monitor. (4) COVID-19 Is this a current diagnosis for this admission?: Yes Plan: She does not have any respiratory symptoms. Isolation protocol. Continue supportive care (5) Chronic combined systolic and diastolic congestive heart failure Is this a current diagnosis for this admission?: Yes Plan: Hold diuretics. Heart failure is fully compensated. Resume diuretic when is necessary. We will need to judiciously give IV fluids as she does seem to be dehydrated. Will monitor intake and output closely (6) Anemia Qualifiers: Anemia type: unspecified type Qualified Code(s): D64.9 - Anemia, unspecified Is this a current diagnosis for this admission?: Yes Plan: Monitor hemoglobin. Anemia studies. (7) Hyperglycemia due to type 2 diabetes mellitus Qualifiers: Diabetes mellitus nursing home insulin use: without nursing home use Qualified Code(s): E11.65 - Type 2 diabetes mellitus with hyperglycemia Is this a current diagnosis for this admission?: Yes Plan: Continue current regimen. Accu-Cheks revealed good control (8) Coronary artery disease Qualifiers: Coronary Disease-Associated Artery/Lesion type: [place] artery [place] vs. transplanted heart: [place] heart Associated angina: without angina Qualified Code(s): I25.10 - Atherosclerotic heart disease of [place] coronary artery without angina pectoris Is this a current diagnosis for this admission?: Yes Plan: Continue dual antiplatelet therapy with aspirin and Plavix as it was recommended by her design engineer agricultural equipment previously. The patient has cardiac stent in place. No symptoms of acute coronary syndrome. Continue to monitor on telemetry. - Plan Summary Summary: The patient was admitted with acute urinary tract infection and hypokalemia. She has chronic congestive heart failure which is fully compensated. - Time Time Spent with patient: 15-24 minutes Medications reviewed and adjusted accordingly: Yes Anticipated Discharge Disposition: Unknown Anticipated Discharge Timeframe: Unknown
[2020-06-06] MEDS: ATORVASTATIN CALCIUM 40 MG TABLET PO SCH (21:17)
[2020-06-06] MEDS: CEFTRIAXONE 1 GM/D5W RTU 1 GM/50 ML RTUPB IV SCH (21:17)
[2020-06-06] MEDS ORDERED: SPIRONOLACTONE 25 MG TABLET PO SCH (22:00)
[2020-06-07] MEDS ORDERED: LEVETIRACETAM 500 MG/NACL-ISO 500 MG/100 ML RTUPB IV ONE ×2 (05:00→05:04)
[2020-06-07 05:18] LABS: ABSOLUTE EOSINOPHILS # (AUTO) 0.1 10^3/uL (0.0-0.6); ABSOLUTE NEUT (AUTO) 5.6 10^3/uL (1.7-8.2); BASOPHILS % (AUTO) 0.4 % (0-2); EOSINOPHILS % (AUTO) 1.2 % (0-6); HEMATOCRIT 41.1 % (36.0-47.0); LYMPHOCYTES % (AUTO) 22.8 % (13-45); MEAN CORPUSCULAR HGB CONC 32.7 g/dL (32.0-36.0); MEAN CORPUSCULAR VOLUME 80 fl (80-97); MONOCYTES % (AUTO) 11.7 % (3-13); PLATELET COUNT 224 10^3/uL (150-450); RED BLOOD COUNT 5.16 10^6/uL (3.72-5.28); RED CELL DISTRIBUTION WIDTH 20.6 % (11.5-14.0); SEGMENTED NEUTROPHILS % (AUTO) 63.9 % (42-78); TOTAL CELLS COUNTED % (AUTO) 100 %; WHITE BLOOD COUNT 8.7 10^3/uL (4.0-10.5)
[2020-06-07 05:23] LABS: HEMOGLOBIN 13.4 g/dL (12.0-15.5)
[2020-06-07 05:39] LABS: ALBUMIN 3.5 g/dL (3.5-5.0); ALKALINE PHOSPHATASE 138 U/L (38-126); ANION GAP 13 (5-19); ASPARTATE AMINO TRANSFERASE 38 U/L (14-36); BILIRUBIN,DIRECT 1.8 mg/dL (0.0-0.4); BILIRUBIN,TOTAL 2.6 mg/dL (0.2-1.3); BLOOD UREA NITROGEN 87 mg/dL (7-20); CALCIUM 9.5 mg/dL (8.4-10.2); CARBON DIOXIDE 26 mmol/L (22-30); CHLORIDE 97 mmol/L (98-107); GLUCOSE 117 mg/dL (75-110); POTASSIUM 3.8 mmol/L (3.6-5.0); TOTAL PROTEIN 8.2 g/dL (6.3-8.2)
[2020-06-07] MEDS: INSULIN LISPRO 100 UNIT/ML 3 ML VIAL SUBCUT SCH ×3 (09:59→19:06)
[2020-06-07] MEDS: METOPROLOL SUCCINATE 50 MG TAB.SR.24H PO SCH (10:08)
[2020-06-07] MEDS: ASPIRIN 81 MG TABLET, CHEWABLE PO SCH (10:08)
[2020-06-07] MEDS: LEVETIRACETAM 1000 MG/NACL-ISO 1,000 MG/100 ML RTUPB IV SCH ×2 (10:09→22:27)
[2020-06-07] MEDS: ENOXAPARIN SODIUM INJ 40 MG/0.4 ML DISP.SYRIN SUBCUT SCH (10:09)
--- NOTE | 2020-06-07 10:51 | PDOC PROGRESS REPORT ---
Subjective Date:: 06/07/20 Subjective:: Patient is more awake and interactive today than yesterday. Reason For Visit: UTI(URINARY TRACT INFECTION)HYPOKALEMIA Physical Exam Vital Signs: Temp Pulse Resp BP Pulse Ox 98.1 F 41 L 22 H 156/47 H 99 06/07/20 08:51 06/07/20 08:51 06/07/20 08:51 06/07/20 08:51 06/07/20 08:51 Intake & Output 06/06/20 06/07/20 06/08/20 06:59 06:59 06:59 Intake Total 750 1910 Balance 750 1910 Weight 56.7 kg 55.4 kg General appearance: PRESENT: no acute distress, cooperative Head exam: PRESENT: atraumatic, normocephalic Respiratory exam: PRESENT: clear to auscultation ac, symmetrical, unlabored. ABSENT: rales, rhonchi, tachypnea, wheezes Cardiovascular exam: PRESENT: RRR, +S1, +S2. ABSENT: bradycardia, diastolic murmur, irregular rhythm, systolic murmur, tachycardia GI/Abdominal exam: PRESENT: normal bowel sounds, soft. ABSENT: distended, guarding, tenderness Gentrourinary exam: ABSENT: indwelling catheter Extremities exam: ABSENT: pedal edema Musculoskeletal exam: PRESENT: normal inspection. ABSENT: deformity, dislocation Neurological exam: PRESENT: alert, awake, oriented to person, oriented to place, oriented to time, oriented to situation. ABSENT: altered Psychiatric exam: PRESENT: flat affect. ABSENT: agitated, anxious Results Laboratory Results: 06/07/20 04:34 06/07/20 04:34 06/06/20 06/07/20 06/07/20 09:02 04:34 04:34 WBC 8.7 RBC 5.16 Hgb 13.4 D Hct 41.1 MCV 80 MCH 26.0 L MCHC 32.7 RDW 20.6 H Plt Count 224 Seg Neutrophils % 63.9 Sodium 135.8 L Potassium 3.8 Chloride 97 L Carbon Dioxide 26 Anion Gap 13 BUN 87 H Creatinine 1.16 Est GFR ( Amer) > 60 Glucose 117 H Calcium 9.5 Magnesium 2.0 Total Bilirubin 2.6 H AST 38 H Alkaline Phosphatase 138 H Total Protein 8.2 Albumin 3.5 TSH 0.82 06/07/20 04:34 WBC RBC Hgb Hct MCV MCH MCHC RDW Plt Count Seg Neutrophils % Sodium Potassium Chloride Carbon Dioxide Anion Gap BUN Creatinine Est GFR ( Amer) Glucose Calcium Magnesium Total Bilirubin AST Alkaline Phosphatase Total Protein Albumin TSH 0.82 06/05/20 06/05/20 06/05/20 15:55 19:48 19:48 Creatine Kinase Cancelled Troponin I Cancelled Cancelled NT-Pro-B Natriuret Pep Cancelled Cancelled 06/05/20 06/05/20 06/05/20 21:07 21:07 23:53 Creatine Kinase 53 Troponin I 0.050 0.057 NT-Pro-B Natriuret Pep 2000 H Impressions: Chest X-Ray 06/05/20 15:38 IMPRESSION: IMPROVED APPEARANCE OF THE CHEST WITH CLEARING OF THE PLEURAL EFFUSIONS AND ALMOST COMPLETE CLEARING OF THE BILATERAL AIRSPACE DISEASE. Assessment and Plan - Diagnosis (1) UTI (urinary tract infection) Qualifiers: Urinary tract infection type: site unspecified Hematuria presence: without hematuria Qualified Code(s): N39.0 - Urinary tract infection, site not specified Is this a current diagnosis for this admission?: Yes Plan: Continue ceftriaxone. Urine and blood cultures are pending. Preliminary shows gram-negative bacilli Final identification shows E. coli that is pansensitive. Continue ceftriaxone at this time. (2) Hypovolemia dehydration Is this a current diagnosis for this admission?: Yes Plan: Cautiously administer IV fluids. Blood pressure was low this afternoon so bolus was initiated. Continue to monitor intake and output Continue IV fluids. Will avoid Banks catheter due to risk of reinfection. (3) Hypokalemia Is this a current diagnosis for this admission?: Yes Plan: Potassium replacement. Monitor potassium level. Hold diuretics. fbi investigator. Serum potassium is now normal. Will start supplement. Consider IV fluids with potassium. (4) COVID-19 Is this a current diagnosis for this admission?: Yes Plan: She does not have any respiratory symptoms. Isolation protocol. Continue supportive care (5) Chronic combined systolic and diastolic congestive heart failure Is this a current diagnosis for this admission?: Yes Plan: Hold diuretics. Heart failure is fully compensated. Resume diuretic when is necessary. We will need to judiciously give IV fluids as she does seem to be dehydrated. Will monitor intake and output closely No evidence of heart failure at this time. Continue to monitor closely with use of IV fluids (6) Anemia Qualifiers: Anemia type: unspecified type Qualified Code(s): D64.9 - Anemia, unspecified Is this a current diagnosis for this admission?: Yes Plan: Monitor hemoglobin. Anemia studies. Hemoglobin is lower. Likely delusional. We will still obtain anemia studies. (7) Hyperglycemia due to type 2 diabetes mellitus Qualifiers: Diabetes mellitus moth exterminator insulin use: without retirement use Qualified Code(s): E11.65 - Type 2 diabetes mellitus with hyperglycemia Is this a current diagnosis for this admission?: Yes Plan: Continue current regimen. Stable Accu-Cheks (8) Coronary artery disease Qualifiers: Coronary Disease-Associated Artery/Lesion type: [place] artery [place] vs. transplanted heart: [place] heart Associated angina: without angina Qualified Code(s): I25.10 - Atherosclerotic heart disease of [place] coronary artery without angina pectoris Is this a current diagnosis for this admission?: Yes Plan: Continue dual antiplatelet therapy with aspirin and Plavix as it was recommended by her leasing representative previously. The patient has cardiac stent in place. No symptoms of acute coronary syndrome. Continue to monitor on telemetry. (9) Seizure disorder as sequela of cerebrovascular accident Is this a current diagnosis for this admission?: Yes Plan: The patient did have a seizure last night. I have increased the Keppra to 1 g twice a day - Plan Summary Summary: The patient was admitted with acute urinary tract infection and hypokalemia. She has chronic congestive heart failure which is fully compensated. - Time Time Spent with patient: 15-24 minutes Medications reviewed and adjusted accordingly: Yes Anticipated Discharge Disposition: Home with Home Health Anticipated Discharge Timeframe: Unknown
[2020-06-07] MEDS: NORMAL SALINE 1000 ML 1,000 ML IV PRN ×2 (14:08→22:28)
[2020-06-07] MEDS: AMLODIPINE BESYLATE 5 MG TABLET PO SCH (14:09)
[2020-06-07] MEDS: CEFTRIAXONE 1 GM/D5W RTU 1 GM/50 ML RTUPB IV SCH (21:32)
[2020-06-07] MEDS: POTASSIUM CHLORIDE 10 MEQ TABLET.ER PO SCH (21:32)
[2020-06-07] MEDS: ATORVASTATIN CALCIUM 40 MG TABLET PO SCH (21:32)
[2020-06-08 05:59] LABS: RETICULOCYTE COUNT (AUTO) 0.64 % (0.66-2.85)
[2020-06-08 06:14] LABS: ALBUMIN 3.2 g/dL (3.5-5.0); ALKALINE PHOSPHATASE 117 U/L (38-126); ANION GAP 12 (5-19); ASPARTATE AMINO TRANSFERASE 35 U/L (14-36); BILIRUBIN,DIRECT 1.2 mg/dL (0.0-0.4); BILIRUBIN,TOTAL 1.8 mg/dL (0.2-1.3); BLOOD UREA NITROGEN 69 mg/dL (7-20); C-REACTIVE PROTEIN 17.8 mg/L (<10.0); CARBON DIOXIDE 26 mmol/L (22-30); CHLORIDE 101 mmol/L (98-107); GLUCOSE 145 mg/dL (75-110); IRON(TIBC) 54.8 ug/dL (37-170); TOTAL PROTEIN 7.6 g/dL (6.3-8.2)
[2020-06-08] MEDS: NORMAL SALINE 1000 ML 1,000 ML IV PRN (06:31)
[2020-06-08 07:17] LABS: FOLATE 9.07 ng/mL (>2.76)
[2020-06-08] MEDS: POTASSIUM CHLORIDE 10 MEQ TABLET.ER PO SCH (09:50)
[2020-06-08] MEDS: METOPROLOL SUCCINATE 50 MG TAB.SR.24H PO SCH (09:50)
[2020-06-08] MEDS: ASPIRIN 81 MG TABLET, CHEWABLE PO SCH (09:50)
[2020-06-08] MEDS: ENOXAPARIN SODIUM INJ 40 MG/0.4 ML DISP.SYRIN SUBCUT SCH (09:50)
[2020-06-08] MEDS: LISINOPRIL 5 MG TABLET PO SCH (09:50)
[2020-06-08] MEDS: AMLODIPINE BESYLATE 5 MG TABLET PO SCH (09:50)
[2020-06-08] MEDS: LEVETIRACETAM 1000 MG/NACL-ISO 1,000 MG/100 ML RTUPB IV SCH (09:51)
[2020-06-08] MEDS: INSULIN LISPRO 100 UNIT/ML 3 ML VIAL SUBCUT SCH ×2 (10:04→13:59)
--- NOTE | 2020-06-08 12:09 | PDOC DISCHARGE SUMMARY ---
Impression - Admit/DC Date/PCP Admission Date/Primary Care Provider: 06/06/20 01:14 NATY REBOLLEDO Discharge Date: 06/08/20 - Discharge Diagnosis (1) UTI (urinary tract infection) Is this a current diagnosis for this admission?: Yes (2) Hypovolemia dehydration Is this a current diagnosis for this admission?: Yes (3) Hypokalemia Is this a current diagnosis for this admission?: Yes (4) COVID-19 Is this a current diagnosis for this admission?: Yes (5) Chronic combined systolic and diastolic congestive heart failure Is this a current diagnosis for this admission?: Yes (6) Anemia Is this a current diagnosis for this admission?: Yes (7) Hyperglycemia due to type 2 diabetes mellitus Is this a current diagnosis for this admission?: Yes (8) Coronary artery disease Is this a current diagnosis for this admission?: Yes (9) Seizure disorder as sequela of cerebrovascular accident Is this a current diagnosis for this admission?: Yes - Assessment Summary: The patient was admitted with acute urinary tract infection and hypokalemia. She has chronic congestive heart failure which is fully compensated. - Additional Information Discharge Diet: Cardiac Discharge Activity: Activity As Tolerated Referrals: SURAJ MANN MD [NO LOCAL MD] - 06/19/20 10:15 am LARRY ARRIAZA DO [NO LOCAL MD] - 06/18/20 3:30 pm Prescriptions: Cephalexin [Cephalexin 500 MG Tablet] 500 mg PO BID 7 Days #14 tablet Levetiracetam [Keppra 500 mg Tablet] 1,000 mg PO Q12 14 Days #56 tablet Potassium Chloride [Klor-Con 10 Meq Tablet ER] 20 meq PO DAILY 10 Days #20 tablet.er Home Medications: Aspirin [Aspirin 81 mg Chewable Tablet] 81 mg PO DAILY 60 Days #60 tab.chew 05/24/20 Atorvastatin Calcium [Lipitor 40 mg Tablet] 40 mg PO QHS 60 Days #60 tablet 05/24/20 Ferrous Sulfate [Feosol 325 mg Tablet] 325 mg PO DAILY 60 Days #60 tablet 05/24/20 Lisinopril [Prinivil 5 mg Tablet] 5 mg PO DAILY 60 Days #60 tablet 05/24/20 Spironolactone [Aldactone 25 mg Tablet] 25 mg PO Q12 30 Days #60 tablet 05/24/20 Acetaminophen [Tylenol 325 mg Tablet] 650 mg PO Q4HP PRN tablet 06/08/20 Aspirin [Aspirin 81 mg Chewable Tablet] 81 mg PO DAILY tab.chew 06/08/20 Atorvastatin Calcium [Lipitor 40 mg Tablet] 40 mg PO QHS tablet 06/08/20 Cephalexin [Cephalexin 500 MG Tablet] 500 mg PO BID 7 Days #14 tablet 06/08/20 Levetiracetam [Keppra 500 mg Tablet] 1,000 mg PO Q12 14 Days #56 tablet 06/08/20 Lisinopril [Prinivil 5 mg Tablet] 5 mg PO DAILY tablet 06/08/20 Metoprolol Succinate [Toprol Xl 50 mg Tab.sr] 50 mg PO DAILY tab.sr.24h 06/08/20 Potassium Chloride [Klor-Con 10 Meq Tablet ER] 20 meq PO DAILY 10 Days #20 tablet.er 06/08/20 History of Present Illiness History of Present Illness: PHILLIP DORANTES is a 49 year old female The patient is chronically debilitated secondary to previous cerebrovascular accident causing debilitating right-sided hemiparesis. She is suffering from congestive heart failure. She has history of current urinary tract infections, no history of multidrug-resistant organism. She was brought to the emergency department because confusion and weakness. She had no respiratory symptoms. She tested positive for coronavirus. She was diagnosed with urinary tract infection and hypokalemia. She was started on ceftriaxone and potassium replacement in the emergency department. When I saw her she did not appear to be in any major distress. Hospital Course Hospital Course: (1) UTI (urinary tract infection) Qualifiers: Urinary tract infection type: site unspecified Hematuria presence: without hematuria Qualified Code(s): N39.0 - Urinary tract infection, site not specified Is this a current diagnosis for this admission?: Yes Plan: Continue ceftriaxone. Urine and blood cultures are pending. Preliminary shows gram-negative bacilli Final identification shows E. coli that is pansensitive. Continue ceftriaxone at this time. (2) Hypovolemia dehydration Is this a current diagnosis for this admission?: Yes Plan: Cautiously administer IV fluids. Blood pressure was low this afternoon so bolus was initiated. Continue to monitor intake and output Continue IV fluids. Will avoid Banks catheter due to risk of reinfection. (3) Hypokalemia Is this a current diagnosis for this admission?: Yes Plan: Potassium replacement. Monitor potassium level. Hold diuretics. service order expediter. Serum potassium is now normal. Will start supplement. Consider IV fluids with potassium. (4) COVID-19 Is this a current diagnosis for this admission?: Yes Plan: She does not have any respiratory symptoms. Isolation protocol. Continue supportive care (5) Chronic combined systolic and diastolic congestive heart failure Is this a current diagnosis for this admission?: Yes Plan: Hold diuretics. Heart failure is fully compensated. Resume diuretic when is necessary. We will need to judiciously give IV fluids as she does seem to be dehydrated. Will monitor intake and output closely No evidence of heart failure at this time. Continue to monitor closely with use of IV fluids (6) Anemia Qualifiers: Anemia type: unspecified type Qualified Code(s): D64.9 - Anemia, unspecified Is this a current diagnosis for this admission?: Yes Plan: Monitor hemoglobin. Anemia studies. Hemoglobin is lower. Likely delusional. We will still obtain anemia studies. (7) Hyperglycemia due to type 2 diabetes mellitus Qualifiers: Diabetes mellitus [facility] insulin use: without [facility] use Qualified Code(s): E11.65 - Type 2 diabetes mellitus with hyperglycemia Is this a current diagnosis for this admission?: Yes Plan: Continue current regimen. Stable Accu-Cheks (8) Coronary artery disease Qualifiers: Coronary Disease-Associated Artery/Lesion type: [place] artery [place] vs. transplanted heart: [place] heart Associated angina: without angina Qualified Code(s): I25.10 - Atherosclerotic heart disease of [place] coronary artery without angina pectoris Is this a current diagnosis for this admission?: Yes Plan: Continue dual antiplatelet therapy with aspirin and Plavix as it was recommended by her natural resource technician previously. The patient has cardiac stent in place. No symptoms of acute coronary syndrome. Continue to monitor on telemetry. (9) Seizure disorder as sequela of cerebrovascular accident Is this a current diagnosis for this admission?: Yes Plan: The patient did have a seizure last night. I have increased the Keppra to 1 g twice a day Physical Exam Vital Signs: Temp Pulse Resp BP Pulse Ox 98.3 F 87 22 H 129/66 H 100 06/08/20 08:32 06/08/20 08:32 06/08/20 08:32 06/08/20 08:32 06/08/20 08:32 Intake & Output 06/07/20 06/08/20 06/09/20 06:59 06:59 06:59 Intake Total 1909 3509 Balance 1909 3510 Weight 55.4 kg 56.8 kg General appearance: PRESENT: no acute distress, cooperative, well-developed Respiratory exam: PRESENT: clear to auscultation ac, symmetrical, unlabored. ABSENT: rales, rhonchi, tachypnea, wheezes Cardiovascular exam: PRESENT: RRR, +S1, +S2. ABSENT: bradycardia, diastolic murmur, irregular rhythm, systolic murmur, tachycardia GI/Abdominal exam: PRESENT: normal bowel sounds, soft. ABSENT: tenderness Neurological exam: PRESENT: alert, awake, oriented to person, oriented to place, oriented to time, oriented to situation Results Laboratory Results: WBC 8.7 10^3/uL (4.0-10.5) 06/07/20 04:34 RBC 5.16 10^6/uL (3.72-5.28) 06/07/20 04:34 Hgb 13.4 g/dL (12.0-15.5) D 06/07/20 04:34 Hct 41.1 % (36.0-47.0) 06/07/20 04:34 MCV 80 fl (80-97) 06/07/20 04:34 MCH 26.0 pg (27.0-33.4) L 06/07/20 04:34 MCHC 32.7 g/dL (32.0-36.0) 06/07/20 04:34 RDW 20.6 % (11.5-14.0) H 06/07/20 04:34 Plt Count 224 10^3/uL (150-450) 06/07/20 04:34 Lymph % (Auto) 22.8 % (13-45) 06/07/20 04:34 [place] % (Auto) 11.7 % (3-13) 06/07/20 04:34 Eos % (Auto) 1.2 % (0-6) 06/07/20 04:34 Baso % (Auto) 0.4 % (0-2) 06/07/20 04:34 Reticulocyte # 0.030 10^6/uL (0.028-0.122) 06/08/20 05:16 Absolute Neuts (auto) 5.6 10^3/uL (1.7-8.2) 06/07/20 04:34 Absolute Lymphs (auto) 2.0 10^3/uL (0.5-4.7) 06/07/20 04:34 Absolute Monos (auto) 1.0 10^3/uL (0.1-1.4) 06/07/20 04:34 Absolute Eos (auto) 0.1 10^3/uL (0.0-0.6) 06/07/20 04:34 Absolute Basos (auto) 0.0 10^3/uL (0.0-0.2) 06/07/20 04:34 Seg Neutrophils % 63.9 % (42-78) 06/07/20 04:34 Retic Count (auto) 0.64 % (0.66-2.85) L 06/08/20 05:16 PT 14.1 SEC (11.4-15.4) 06/05/20 15:55 INR 1.07 06/05/20 15:55 D-Dimer 1.80 ug/mL (0.00-0.50) H 06/08/20 05:16 VBG pH 7.38 (7.30-7.42) 06/05/20 15:55 VBG pCO2 61.4 mmHg (35-63) 06/05/20 15:55 VBG HCO3 35.7 mmol/L (20-32) H 06/05/20 15:55 VBG Base Excess 7.9 mmol/L 06/05/20 15:55 Sodium 138.6 mmol/L (137-145) 06/08/20 05:16 Potassium 4.0 mmol/L (3.6-5.0) 06/08/20 05:16 Chloride 101 mmol/L (98-107) 06/08/20 05:16 Carbon Dioxide 26 mmol/L (22-30) 06/08/20 05:16 Anion Gap 12 (5-19) 06/08/20 05:16 BUN 69 mg/dL (7-20) H 06/08/20 05:16 Creatinine 1.00 mg/dL (0.52-1.25) 06/08/20 05:16 Est GFR ( Amer) > 60 (>60) 06/08/20 05:16 Est GFR (Non-Af Amer) Cancelled 06/06/20 04:46 Est GFR (MDRD) Non-Af 59 (>60) L 06/08/20 05:16 Glucose 145 mg/dL (75-110) H 06/08/20 05:16 POC Glucose 109 mg/dL (70-110) 06/08/20 08:28 Lactic Acid 1.7 mmol/L (0.7-2.1) 06/05/20 19:40 Calcium 9.0 mg/dL (8.4-10.2) 06/08/20 05:16 Magnesium 2.0 mg/dL (1.6-2.3) 06/07/20 04:34 Iron 54.8 ug/dL (37-170) 06/08/20 05:16 TIBC 292 ug/dL (250-450) 06/08/20 05:16 % Saturation 19 % 06/08/20 05:16 Ferritin 172.00 ng/mL (6.2-137.0) H 06/08/20 05:16 Total Bilirubin 1.8 mg/dL (0.2-1.3) H 06/08/20 05:16 Direct Bilirubin 1.2 mg/dL (0.0-0.4) H 06/08/20 05:16 Neonat Total Bilirubin Not Reportable 06/08/20 05:16 Neonat Direct Bilirubin Not Reportable 06/08/20 05:16 Neonat Indirect Bili Not Reportable 06/08/20 05:16 AST 35 U/L (14-36) 06/08/20 05:16 ALT 16 U/L (<35) 06/08/20 05:16 Alkaline Phosphatase 117 U/L (38-126) 06/08/20 05:16 Ammonia 87.4 umol/L (9-33) H 06/05/20 17:25 Creatine Kinase 53 U/L (30-135) 06/05/20 21:07 Troponin I 0.057 ng/mL 06/05/20 23:53 C-Reactive Protein 17.8 mg/L (<10.0) H 06/08/20 05:16 NT-Pro-B Natriuret Pep 2000 pg/mL (<125) H 06/05/20 21:07 Total Protein 7.6 g/dL (6.3-8.2) 06/08/20 05:16 Albumin 3.2 g/dL (3.5-5.0) L 06/08/20 05:16 EGFR Cancelled 06/06/20 04:46 Vitamin B12 474.0 pg/mL (239-931) 06/08/20 05:16 Folate 9.07 ng/mL (>2.76) 06/08/20 05:16 TSH 0.82 uIU/mL (0.47-4.68) 06/07/20 04:34 Urine Color TERESA 06/05/20 19:07 Urine Appearance CLOUDY 06/05/20 19:07 Urine pH 5.0 (5.0-9.0) 06/05/20 19:07 Ur Specific [place] 1.012 06/05/20 19:07 Urine Protein 100 mg/dL (NEGATIVE) H 06/05/20 19:07 Urine Glucose (UA) NEGATIVE mg/dL (NEGATIVE) 06/05/20 19:07 Urine Ketones NEGATIVE mg/dL (NEGATIVE) 06/05/20 19:07 Urine Blood SMALL (NEGATIVE) H 06/05/20 19:07 Urine Nitrite (Reflex) NEGATIVE (NEGATIVE) 06/05/20 19:07 Urine Bilirubin NEGATIVE (NEGATIVE) 06/05/20 19:07 Urine Urobilinogen 4.0 mg/dL (<2.0) H 06/05/20 19:07 Leukocyte Esterase Rfl LARGE (NEGATIVE) H 06/05/20 19:07 Urine RBC (Auto) 1 /HPF 06/05/20 19:07 Urine Bacteria (Auto) 2+ /HPF 06/05/20 19:07 Urine WBC (Reflex) > 182 /HPF 06/05/20 19:07 Urine WBC Clumps MANY /HPF 06/05/20 19:07 Squamous Epi Cells Auto 1 /HPF 06/05/20 19:07 Urine Mucus (Auto) RARE /LPF 06/05/20 19:07 Urine Ascorbic Acid NEGATIVE (NEGATIVE) 06/05/20 19:07 06/05/20 06/05/20 06/05/20 15:55 19:48 21:07 Troponin I Cancelled Cancelled 0.050 NT-Pro-B Natriuret Pep Cancelled Cancelled 2000 H 06/05/20 23:53 Troponin I 0.057 NT-Pro-B Natriuret Pep Impressions: Chest X-Ray 06/05/20 15:38 IMPRESSION: IMPROVED APPEARANCE OF THE CHEST WITH CLEARING OF THE PLEURAL EFFUSIONS AND ALMOST COMPLETE CLEARING OF THE BILATERAL AIRSPACE DISEASE. Plan Health Concerns: Seizure despite medication. Likely due to infection. Patient was also markedly dehydrated probably from overdiuresis. Fluid intake may have been decreased recently. Plan of Treatment: Increase Keppra until she sees her neurologist. Decrease diuretics until she sees her primary care provider Goals: Return to reasonable regimen to keep the patient euvolemic and seizure-free Time Spent: Greater than 30 Minutes Stroke Is this a Stroke Patient?: No Acute Heart Failure Is this a Heart Failure Patient?: No
[2020-06-08 14:57] VITALS: BP 121/77
== END 2020-06-08 16:15 | disposition home health service (06) | DRG 689 ==
LOC: ER 15:16 → OBSVTOIN 06-06 01:14 → INTOOBSV 06-06 01:14 → EH 06-06 01:14 → 3N 06-06 02:21
PROVIDERS: ADMIT Internal Medicine; ATTEND Hospitalist
DX: N39.0 Urinary tract infection, site not specified (principal); U07.1 COVID-19; I50.42 Chronic combined systolic (congestive) and diastolic (congestive) heart failure; G40.802 Other epilepsy, not intractable, without status epilepticus; I69.951 Hemiplegia and hemiparesis following unspecified cerebrovascular disease affecting right dominant side; E87.6 Hypokalemia; Z66 Do not resuscitate; E86.0 Dehydration; I11.0 Hypertensive heart disease with heart failure; D64.9 Anemia, unspecified; E11.65 Type 2 diabetes mellitus with hyperglycemia; B96.20 Unspecified Escherichia coli [E. coli] as the cause of diseases classified elsewhere; I25.10 Atherosclerotic heart disease of native coronary artery without angina pectoris; E78.5 Hyperlipidemia, unspecified; E86.1 Hypovolemia; I25.2 Old myocardial infarction; I69.398 Other sequelae of cerebral infarction; Z79.899 Other long term (current) drug therapy; Z79.82 Long term (current) use of aspirin; Z95.5 Presence of coronary angioplasty implant and graft
CPT/HCPCS: 36415; 71045; 80053; 81001; 82140; 82550; 82607; 82728; 82746; 82803; 82962; 83540; 83550; 83605; 83735; 83880; 84443; 84484; 85025; 85045; 85379; 85610; 86140; 87040; 87086; 87088; 87186; 93005; 93010; 96361; 96365; 96367; 99285; J0696; J1650; J1953; J3475; J3480; J7030; J7040; J7120

== ENCOUNTER 2020-06-14 05:41 | Emergency (ER) | payer MEDICARE, MEDICAID ==
[2020-06-14 06:40] LABS: ABSOLUTE BASOPHILS # (AUTO) 0.1 10^3/uL (0.0-0.2); ABSOLUTE EOSINOPHILS # (AUTO) 0.1 10^3/uL (0.0-0.6); ABSOLUTE LYMPHOCYTES (AUTO) 1.8 10^3/uL (0.5-4.7); ABSOLUTE MONOCYTES (AUTO) 0.5 10^3/uL (0.1-1.4); ABSOLUTE NEUT (AUTO) 4.8 10^3/uL (1.7-8.2); BASOPHILS % (AUTO) 1.1 % (0-2); EOSINOPHILS % (AUTO) 1.2 % (0-6); HEMATOCRIT 38.7 % (36.0-47.0); HEMOGLOBIN 12.3 g/dL (12.0-15.5); LYMPHOCYTES % (AUTO) 24.4 % (13-45); MEAN CORPUSCULAR HEMOGLOBIN 25.9 pg (27.0-33.4); MEAN CORPUSCULAR HGB CONC 31.8 g/dL (32.0-36.0); MEAN CORPUSCULAR VOLUME 81 fl (80-97); MONOCYTES % (AUTO) 7.4 % (3-13); PLATELET COUNT 287 10^3/uL (150-450); RED BLOOD COUNT 4.75 10^6/uL (3.72-5.28); RED CELL DISTRIBUTION WIDTH 21.3 % (11.5-14.0); SEGMENTED NEUTROPHILS % (AUTO) 65.9 % (42-78); TOTAL CELLS COUNTED % (AUTO) 100 %; WHITE BLOOD COUNT 7.2 10^3/uL (4.0-10.5)
[2020-06-14 06:52] LABS: ALBUMIN 4.1 g/dL (3.5-5.0); ALKALINE PHOSPHATASE 154 U/L (38-126); ANION GAP 13 (5-19); ASPARTATE AMINO TRANSFERASE 87 U/L (14-36); BILIRUBIN,DIRECT 1.2 mg/dL (0.0-0.4); BLOOD UREA NITROGEN 80 mg/dL (7-20); CALCIUM 9.9 mg/dL (8.4-10.2); CARBON DIOXIDE 31 mmol/L (22-30); CHLORIDE 91 mmol/L (98-107); GLUCOSE 209 mg/dL (75-110); POTASSIUM 4.1 mmol/L (3.6-5.0); TOTAL PROTEIN 9.2 g/dL (6.3-8.2)
[2020-06-14 06:53] LABS: ALCOHOL < 10 mg/dL (NONE DETECTED)
--- NOTE | 2020-06-14 07:01 | ER Document Report ---
ED Seizure - General Chief Complaint: Seizure Stated Complaint: POSSIBLE SEIZURE Time Seen by Provider: 06/14/20 06:55 Primary Care Provider: REID MEJIA FNP-C [Primary Care Provider] - Follow up as needed TRAVEL OUTSIDE OF THE [place] IN LAST 30 DAYS: No - HPI Notes: 49-year-old woman with multiple comorbidities including known seizure disorder status post CVA in the past presents via ambulance called by her family after she had another generalized tonic-clonic seizure at home earlier this morning. Was evidently Covid positive a couple of weeks ago but had a rapid Covid test done in the ambulance on the way here which was negative. No other history of recent acute illness per EMS to the nursing staff. Patient arrived before my shift began so I did not have the chance to speak with him directly. Nursing staff reports no other evidence of recent illness. Patient's records suggest noncompliant but she says she is taking her medications as prescribed. Patient denies any pain right now and denies any other recent acute illness but is quite drowsy and answers most questions yes or no so the accuracy of her history is uncertain. - Related Data Allergies/Adverse Reactions: No Known Allergies Allergy (Verified 06/14/20 05:55) Past Medical History - General Information source[facility] - Social History Smoking Status: Unknown if Ever Smoked Frequency of alcohol use: None Drug Abuse: None Family History: Reviewed & Not Pertinent, DM, Other - Medical History Notes: Past medical history as documented in electronic health record is reviewed. - Past Medical History Cardiac Medical History: Reports: Hx Congestive Heart Failure, Hx Coronary [place] Disease, Hx Heart Attack, Hx Hypercholesterolemia, Hx Hypertension, Hx Heart Murmur Pulmonary Medical History: Denies: Hx Asthma, Hx COPD Neurological Medical History: Reports: Hx Cerebrovascular Accident, Hx Seizures Endocrine Medical History: Reports: Hx Diabetes Mellitus Type 2. Denies: Hx Diabetes Mellitus Type 1, Hx Hyperthyroidism, Hx Hypothyroidism Renal/ Medical History: Denies: Hx Peritoneal Dialysis GI Medical History: Denies: Hx Cirrhosis, Hx Hepatitis Musculoskeletal Medical History: Denies Hx Arthritis, Denies Hx Gout Skin Medical History: Denies Hx Eczema, Denies Hx Psoriasis Psychiatric Medical History: Denies: Hx Depression Infectious Medical History: Denies: Hx Hepatitis Past Surgical History: Reports: Hx Cardiac Catheterization, Hx Cholecystectomy, Hx Coronary Stent - Immunizations Hx Diphtheria, Pertussis, Tetanus Vaccination: Yes Review of Systems - Review of Systems -: Yes ROS unobtainable due to patient's medical condition Physical Exam - Vital signs Vitals: Temp Pulse Resp BP Pulse Ox 98.7 F 89 19 118/71 100 06/14/20 05:41 06/14/20 05:41 06/14/20 05:41 06/14/20 05:41 06/14/20 05:41 - Notes Notes: General: This is a drowsy but arousable female who appears older than her stated age and chronically ill. Vital signs and nursing documentation are reviewed. HEENT the patient is normocephalic without evidence of trauma. Pupils are equally reactive to light. She does not cooperate with extraocular movement exam. ENT exam is otherwise grossly unremarkable except for some dry mucous membranes. Neck: Supple, no adenopathy. Trachea midline. Chest: Lungs clear to auscultation. Exam is limited by patient cooperation. Heart: Regular rate and rhythm without murmur. Abdomen: Obese, soft, nontender, no masses or guarding. Extremities: Patient holds her arms crossed over her chest. She will reach up with her left arm and grasp my fingers. She says she cannot move her right arm. Her right leg appears somewhat weak but she is able to wiggle her toes. Left leg appears normal. Skin: Warm, moist, multiple old healed ulcers and scars but nothing obviously open that we see now. Neuro: The patient is drowsy and somewhat postictal. She is oriented x1. She does not remember who her primary care doctor is nor does she remember who her neurologist is but she thinks she sees 1. She can follow one-step commands. She appears to have a right hemiparesis involving mostly her arm and some weakness of her leg. Course - Re-evaluation Re-evalutation: 06/14/20 09:59 Patient was reassessed at 9:50 AM. She is somewhat sleepy but arouses easily to voice. She says she feels better. She thinks she is capable of going home. I spoke to her son Ten on the phone who is her primary caregiver. He verifies that she has been sleeping a lot since her last hospitalization. They had requested a follow-up appointment for her but then she tested positive for Covid 2 weeks ago and so that has been on hold. I advised him that the EMS personnel did a rapid Covid test on her today which came back negative so she was cleared from that point of view. He says that she is not ambulatory because of her stroke and her right hemiplegia. She has seizures. She has baseline mental status alteration and he says that she talks but frequently does not make sense or cannot be understood. Based on that information I think she is back to her baseline. We will arrange transport home via medical stretcher service. I encouraged her son to call the clinic where she is going to go for follow-up, t ell them that she is negative for Covid, and see if they could see her before Madalyn. She should return to the emergency department if any other concerning symptoms develop. - Vital Signs Vital signs: Temp Pulse Resp BP Pulse Ox 98.7 F 89 16 142/77 H 100 06/14/20 05:41 06/14/20 05:41 06/14/20 07:31 06/14/20 07:31 06/14/20 07:31 - Laboratory Results Result Diagrams: 06/14/20 06:12 06/14/20 06:12 Laboratory Results Interpreted: 06/14/20 06/14/20 06/14/20 06:12 06:12 06:28 MCH 25.9 L MCHC 31.8 L RDW 21.3 H Sodium 134.7 L Chloride 91 L Carbon Dioxide 31 H BUN 80 H Est GFR ( Amer) 56 L Est GFR (MDRD) Non-Af 46 L Glucose 209 H Total Bilirubin 2.0 H Direct Bilirubin 1.2 H AST 87 H ALT 47 H Alkaline Phosphatase 154 H Total Protein 9.2 H Urine Urobilinogen 4.0 H Critical Laboratory Results Reviewed: No Critical Results - Radiology Results Radiology Results Interpreted: 06/14/20 10:[address] 06/14/20 07:13 IMPRESSION: Chronic ischemic changes. EVIDENCE OF ACUTE STROKE: NO. Critical Radiology Results Reviewed: No Critical Results Discharge - Discharge Clinical Impression: Recurrent seizures Condition: Fair Disposition: HOME, SELF-CARE Instructions: Seizure, Known Epileptic ([facility]) Additional Instructions: Continue taking your medications as prescribed. Contact your clinic for follow-up appointment. Advised them that your Covid test was negative and that they should see you before Madalyn. Return to the emergency department if your symptoms worsen or if any other concerning symptoms develop. Referrals: ROBERTO,REID E, ROPE RIDER-C [Primary Care Provider] - Follow up as needed
[2020-06-14 07:10] LABS: APPEARANCE,URINE CLEAR; BILIRUBIN,URINE NEGATIVE (NEGATIVE); COLOR,URINE YELLOW; GLUCOSE, URINE NEGATIVE (NEGATIVE); KETONES,URINE NEGATIVE (NEGATIVE); LEUKOCYTE ESTERASE,URINE NEGATIVE (NEGATIVE); NITRITE,URINE NEGATIVE (NEGATIVE); PROTEIN,URINE NEGATIVE (NEGATIVE)
[2020-06-14 07:23] LABS: URINE AMPHETAMINES SCREEN NEGATIVE; URINE BARBITURATES SCREEN NEGATIVE; URINE BENZODIAZEPINES SCREEN NEGATIVE; URINE COCAINE SCREEN NEGATIVE; URINE MARIJUANA (THC) SCREEN NEGATIVE; URINE METHADONE SCREEN NEGATIVE; URINE PHENCYCLIDINE SCREEN NEGATIVE
[2020-06-14] MEDS ORDERED: LEVETIRACETAM 500 MG/NACL-ISO 500 MG/100 ML RTUPB IV ONE (08:23)
--- NOTE | 2020-06-14 08:41 | RADIOLOGY REPORT (SQ) ---
EXAM DESCRIPTION: CT HEAD WITHOUT IMAGES COMPLETED DATE/TIME: 06/14/2020 8:01 am REASON FOR STUDY: seizure, altered mental status COMPARISON: 02/04/2020 TECHNIQUE: Axial images acquired through the brain without intravenous contrast. Images reviewed wi th bone, brain and subdural windows. Additional sagittal and coronal reconstructions were generated. Images stored on PACS. All CT scanners at this facility use dose modulation, iterative reconstruction, and/or weight based d osing when appropriate to reduce radiation dose to as low as reasonably achievable (ALARA). [facility]: Dose Right [facility]: CareDose [facility]: Dose Right [facility]: Teradose 4D [facility]: Smart [place] RADIATION DOSE: CT Rad equipment meets quality standard of care and radiation dose reduction techniq ues were employed. CTDIvol: 53.2 mGy. DLP: 937 mGy-cm. mGy. LIMITATIONS: None. FINDINGS: VENTRICLES: Prominent. CEREBRUM: No masses. No hemorrhage. No midline shift. Old left basal ganglia infarct. Areas of lo w density in the white matter most likely due to chronic micro-vascular ischemic change. No evidence for acute infarction. CEREBELLUM: No masses. No hemorrhage. No alteration of density. No evidence for acute infarction. EXTRAAXIAL SPACES: Mild age-related involutional change. No fluid collections. No masses. ORBITS AND GLOBE: No intra- or extraconal masses. Normal contour of globe without masses. CALVARIUM: No fracture. PARANASAL SINUSES: No fluid or mucosal thickening. SOFT TISSUES: No mass or hematoma. OTHER: No other significant finding. IMPRESSION: Chronic ischemic changes. EVIDENCE OF ACUTE STROKE: NO. TECHNICAL DOCUMENTATION: JOB ID: [id number] Quality ID # [id number]: Final reports with documentation of one or more dose reduction techniques (e.g., Au tomated exposure control, adjustment of the mA and/or kV according to patient size, use of iterative reconstruction technique) 2010 [employer]- All Rights Reserved Reading location - IP/workstation name: [email or web address]
[2020-06-14 11:06] VITALS: BP 113/49
== END 2020-06-14 11:08 | disposition home or self-care (01) ==
LOC: ER 05:41
DX: G40.909 Epilepsy, unspecified, not intractable, without status epilepticus (principal); I69.351 Hemiplegia and hemiparesis following cerebral infarction affecting right dominant side; I25.10 Atherosclerotic heart disease of native coronary artery without angina pectoris; I10 Essential (primary) hypertension; E11.9 Type 2 diabetes mellitus without complications; Z95.5 Presence of coronary angioplasty implant and graft; Z86.19 Personal history of other infectious and parasitic diseases; Z79.899 Other long term (current) drug therapy
CPT/HCPCS: 99285; 96374; 36415; 80177; 82962; 80307 ×2; 83735; 85025; 80053; 81001; 70450; J1953

== ENCOUNTER 2020-07-05 10:57 | Inpatient (IN) | payer MEDICARE, MEDICAID ==
[2020-07-05] MEDS ORDERED: NORMAL SALINE 1000 ML 1,000 ML IV ONE (12:16)
--- NOTE | 2020-07-05 12:24 | ER Document Report ---
ED General - General Chief Complaint: Altered Mental Status Stated Complaint: AMS Time Seen by Provider: 07/05/20 11:19 Primary Care Provider: REID MEJIA FNP-C [Primary Care Provider] - Follow up as needed TRAVEL OUTSIDE OF THE [place] 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 Apparently no one witnessed a seizure but EMS describes what sounds like a postictal state. We note this lady has been seen here numerous times for seizure and postictal state. Patient tells me she has a slight dull headache. She does not remember coming to the hospital and is currently disoriented to date appearing mildly postictal. She denies vomiting, diarrhea, or fever. Review of past records indicates that this lady has diabetes mellitus type 2, old stroke, CHF with low ejection fraction and chronic anasarca and jaundice which is apparently attributed to passive hepatic congestion related to her heart failure. Bedside nurse notes that the patient was covered with stool when she was brought in by EMS. They report that the residents was filthy. Bedside nurses contacted case management for evaluation of current living status. Home Medications: Aspirin [Aspirin 81 mg Chewable Tablet] 81 mg PO DAILY 60 Days #60 tab.chew 05/24/20 Atorvastatin Calcium [Lipitor 40 mg Tablet] 40 mg PO QHS 60 Days #60 tablet 05/24/20 Ferrous Sulfate [Feosol 325 mg Tablet] 325 mg PO DAILY 60 Days #60 tablet 05/24/20 Lisinopril [Prinivil 5 mg Tablet] 5 mg PO DAILY 60 Days #60 tablet 05/24/20 Spironolactone [Aldactone 25 mg Tablet] 25 mg PO Q12 30 Days #60 tablet 05/24/20 Acetaminophen [Tylenol 325 mg Tablet] 650 mg PO Q4HP PRN tablet 06/08/20 Aspirin [Aspirin 81 mg Chewable Tablet] 81 mg PO DAILY tab.chew 06/08/20 Atorvastatin Calcium [Lipitor 40 mg Tablet] 40 mg PO QHS tablet 06/08/20 Cephalexin [Cephalexin 500 MG Tablet] 500 mg PO BID 7 Days #14 tablet 06/08/20 Levetiracetam [Keppra 500 mg Tablet] 1,000 mg PO Q12 14 Days #56 tablet 06/08/20 Lisinopril [Prinivil 5 mg Tablet] 5 mg PO DAILY tablet 06/08/20 Metoprolol Succinate [Toprol Xl 50 mg Tab.sr] 50 mg PO DAILY tab.sr.24h 06/08/20 Potassium Chloride [Klor-Con 10 Meq Tablet ER] 20 meq PO DAILY 10 Days #20 tablet.er 06/08/20 Primary provider: [facility] Data Allergies/Adverse Reactions: No Known Allergies Allergy (Verified 06/14/20 05:55) Past Medical History - General Information source: Patient, [facility] Records - Social History Smoking Status: Unknown if Ever Smoked Frequency of alcohol use: None Drug Abuse: None Lives with: Family Family History: Reviewed & Not Pertinent, DM, Other - Past Medical History Cardiac Medical History: Reports: Hx Congestive Heart Failure, Hx Coronary Artery Disease, Hx Heart Attack, Hx Hypercholesterolemia, Hx Hypertension, Hx Heart Murmur Pulmonary Medical History: Denies: Hx Asthma, Hx COPD Neurological Medical History: Reports: Hx Cerebrovascular Accident, Hx Seizures Endocrine Medical History: Reports: Hx Diabetes Mellitus Type 2. Denies: Hx Diabetes Mellitus Type 1, Hx Hyperthyroidism, Hx Hypothyroidism Renal/ Medical History: Denies: Hx Peritoneal Dialysis GI Medical History: Denies: Hx Cirrhosis, Hx Hepatitis Musculoskeletal Medical History: Denies Hx Arthritis, Denies Hx Gout Skin Medical History: Denies Hx Eczema, Denies Hx Psoriasis Psychiatric Medical History: Denies: Hx Depression Infectious Medical History: Denies: Hx Hepatitis Past Surgical History: Reports: Hx Cardiac Catheterization, Hx Cholecystectomy, Hx Coronary Stent - Immunizations Hx Diphtheria, Pertussis, Tetanus Vaccination: Yes Review of Systems - Review of Systems -: Yes ROS unobtainable due to patient's medical condition Physical Exam - Vital signs Vitals: Resp 16 07/05/20 11:25 - Notes Notes: GENERAL: Slender middle-age female who appears disheveled and postictal. Right hemiparesis with contracture of upper and lower extremity. SKIN: Good turgor no rashes. HEAD: Normocephalic atraumatic. EYES: PERRLA. EOMI. Conjunctivae and sclerae clear. EARS: CANALS AND TMS CLEAR. NOSE: CLEAR. MOUTH: Moist mucosa. Good dentition. No stridor or edema. No drooling. NECK: Supple. No masses or thyromegaly. No adenopathy. Carotids 2+ without bruits. No JVD. BACK: Symmetrical without tenderness. CHEST: Respirations unlabored. Breath sounds clear and symmetrical. HEART: Regular rhythm. No murmur gallop or rub. ABDOMEN: Soft nontender without masses, organomegaly or rebound. Bowel sounds normally active. No bruits. GENITALIA: Deferred. EXTREMITIES: No edema. No calf tenderness. Cap refill less than 1.5 seconds. Dorsalis pedis and posterior tibial pulses 3+ and symmetrical. NEUROLOGICAL: GCS 14. Alert and oriented to person and place but not time. Old right hemiparesis with spasticity of upper and lower extremity. Fluent speech. Cranial nerves II through XII intact. Normal tone. PSYCHIATRIC: Appropriate affect. Course - Re-evaluation Re-evalutation: 07/05/20 15:55 This lady appeared postictal on arrival and we know she has a history of seizure disorder with an old stroke. She is awake and alert here oriented to person and place but not time. She looks dry and lab work is consistent with significant dehydration. She has a baseline creatinine about 1.3 this is bumped up to about 1.8 today and her BUN is 120. She is getting IV hydration here. Chest x-ray read as normal by the radiologist. Her head CT shows no acute findings. White count is not elevated. She does not have a fever. Her urinalysis is unremarkable. Case management has been consulted. We will continue IV hydration and I spoken with Dr. Bass from the hospitalist service regarding admission of this patient and he is excepted the patient. - Vital Signs Vital signs: Temp Pulse Resp BP Pulse Ox 97.5 F 12 117/74 98 07/05/20 12:11 07/05/20 14:01 07/05/20 14:00 07/05/20 14:01 - Laboratory Results Result Diagrams: 07/05/20 11:32 07/05/20 11:32 Laboratory Results Interpreted: 07/05/20 07/05/20 07/05/20 11:32 11:32 12:13 MCH 25.8 L RDW 21.3 H Sodium 134.6 L Chloride 89 L Carbon Dioxide 33 H BUN 124 H Creatinine 1.57 H Est GFR ( Amer) 43 L Est GFR (MDRD) Non-Af 35 L Glucose 147 H POC Glucose Total Bilirubin 2.0 H Direct Bilirubin 1.3 H AST 83 H ALT 63 H Alkaline Phosphatase 163 H Ammonia Total Protein 9.0 H Urine Blood MODERATE H Urine Urobilinogen 2.0 H Leukocyte Esterase Rfl MODERATE H 07/05/20 07/05/20 12:26 13:05 MCH RDW Sodium Chloride Carbon Dioxide BUN Creatinine Est GFR ( Amer) Est GFR (MDRD) Non-Af Glucose POC Glucose 133 H Total Bilirubin Direct Bilirubin AST ALT Alkaline Phosphatase Ammonia < 8.7 L Total Protein Urine Blood Urine Urobilinogen Leukocyte Esterase Rfl Critical Laboratory Results Reviewed: Yes Attending or Supervising Physician who Reviewed Labs: LARRY HARRY - Radiology Results Critical Radiology Results Reviewed: No Critical Results Discharge - Discharge Clinical Impression: Seizure, Dehydration, Late effects of old CVA [id number] kidney injury Qualifiers: Acute renal failure type: unspecified Chronic kidney disease stage: stage 3 (moderate) Chronic kidney disease stage 3 subtype: unspecified whether 3a or 3b Qualified Code(s): N17.9 - Acute kidney failure, unspecified; N18.30 - Chronic kidney disease, stage 3 unspecified Condition: Fair Disposition: ADMITTED INPATIENT Admitting Provider: Kali (Hospitalist) Unit Admitted: Medical Floor Referrals: REID MEJIA FNP-C [Primary Care Provider] - Follow up as needed
[2020-07-05 12:39] LABS: APPEARANCE,URINE SLIGHTLY-CLOUDY; BILIRUBIN,URINE NEGATIVE (NEGATIVE); COLOR,URINE YELLOW; GLUCOSE, URINE NEGATIVE (NEGATIVE); KETONES,URINE NEGATIVE (NEGATIVE); PROTEIN,URINE NEGATIVE (NEGATIVE); URINE SPECIFIC GRAVITY 1.009
[2020-07-05 12:52] LABS: URINE AMPHETAMINES SCREEN NEGATIVE; URINE BARBITURATES SCREEN NEGATIVE; URINE BENZODIAZEPINES SCREEN NEGATIVE; URINE COCAINE SCREEN NEGATIVE; URINE MARIJUANA (THC) SCREEN NEGATIVE; URINE METHADONE SCREEN NEGATIVE; URINE PHENCYCLIDINE SCREEN NEGATIVE
[2020-07-05 13:05] LABS: ABSOLUTE BASOPHILS # (AUTO) 0.1 10^3/uL (0.0-0.2); ABSOLUTE EOSINOPHILS # (AUTO) 0.3 10^3/uL (0.0-0.6); ABSOLUTE LYMPHOCYTES (AUTO) 2.2 10^3/uL (0.5-4.7); ABSOLUTE MONOCYTES (AUTO) 0.4 10^3/uL (0.1-1.4); ABSOLUTE NEUT (AUTO) 5.1 10^3/uL (1.7-8.2); EOSINOPHILS % (AUTO) 3.2 % (0-6); HEMATOCRIT 40.1 % (36.0-47.0); LYMPHOCYTES % (AUTO) 27.2 % (13-45); MEAN CORPUSCULAR HEMOGLOBIN 25.8 pg (27.0-33.4); MEAN CORPUSCULAR HGB CONC 32.4 g/dL (32.0-36.0); MEAN CORPUSCULAR VOLUME 80 fl (80-97); MONOCYTES % (AUTO) 5.1 % (3-13); PLATELET COUNT 214 10^3/uL (150-450); RED BLOOD COUNT 5.05 10^6/uL (3.72-5.28); RED CELL DISTRIBUTION WIDTH 21.3 % (11.5-14.0); SEGMENTED NEUTROPHILS % (AUTO) 63.5 % (42-78); TOTAL CELLS COUNTED % (AUTO) 100 %
--- NOTE | 2020-07-05 13:07 | RADIOLOGY REPORT (SQ) ---
EXAM DESCRIPTION: CHEST SINGLE VIEW IMAGES COMPLETED DATE/TIME: 07/05/2020 12:58 pm REASON FOR STUDY: seizure COMPARISON: None. NUMBER OF VIEWS: One view. TECHNIQUE: Single frontal radiographic view of the chest acquired. LIMITATIONS: None. FINDINGS: LUNGS AND PLEURA: No opacities, masses or pneumothorax. No pleural effusion. MEDIASTINUM AND HILAR STRUCTURES: No masses. Contour normal. HEART AND VASCULAR STRUCTURES: Heart normal in size. Normal vasculature. BONES: No acute findings. HARDWARE: None in the chest. OTHER: No other significant finding. IMPRESSION: NO SIGNIFICANT RADIOGRAPHIC FINDING IN THE CHEST. TECHNICAL DOCUMENTATION: JOB ID: [id number] 2010 Dr. Z- All Rights Reserved Reading location - IP/workstation name: [email or web address]
--- NOTE | 2020-07-05 13:13 | RADIOLOGY REPORT (SQ) ---
EXAM DESCRIPTION: CT HEAD WITHOUT IMAGES COMPLETED DATE/TIME: 07/05/2020 11:55 am REASON FOR STUDY: ams COMPARISON: 06/14/2020 TECHNIQUE: Axial images acquired through the brain without intravenous contrast. Images reviewed wi th bone, brain and subdural windows. Additional sagittal and coronal reconstructions were generated. Images stored on PACS. All CT scanners at this facility use dose modulation, iterative reconstruction, and/or weight based d osing when appropriate to reduce radiation dose to as low as reasonably achievable (ALARA). [facility]: Dose Right [facility]: CareDose [facility]: Dose Right [facility]: Teradose 4D [facility]: Smart Grabbed RADIATION DOSE: CT Rad equipment meets quality standard of care and radiation dose reduction techniq ues were employed. CTDIvol: 53.2 mGy. DLP: 991 mGy-cm. mGy. LIMITATIONS: None. FINDINGS: VENTRICLES: Normal size and contour. CEREBRUM: No masses. No hemorrhage. No midline shift. No evidence for acute infarction. Normal gra y/white matter differentiation. No areas of low density in the white matter. CEREBELLUM: No masses. No hemorrhage. No alteration of density. No evidence for acute infarction. EXTRAAXIAL SPACES: No fluid collections. No masses. ORBITS AND GLOBE: No intra- or extraconal masses. Normal contour of globe without masses. CALVARIUM: No fracture. PARANASAL SINUSES: No fluid or mucosal thickening. SOFT TISSUES: No mass or hematoma. OTHER: No other significant finding. IMPRESSION: NO ACUTE INTRACRANIAL IMAGING FINDINGS. EVIDENCE OF ACUTE STROKE: NO. COMMENT: Quality ID # [id number]: Final reports with documentation of one or more dose reduction techniques (e.g., Automated exposure control, adjustment of the mA and/or kV according to patient size, use of iterative reconstruction technique) TECHNICAL DOCUMENTATION: JOB ID: [id number] 2010 [employer]- All Rights Reserved Reading location - IP/workstation name: [email or web address]
[2020-07-05 13:17] LABS: VENOUS BLOOD BASE EXCESS 5.4 mmol/L; VENOUS BLOOD HCO3 31.5 mmol/L (20-32); VENOUS BLOOD PCO2 52.3 mmHg (35-63); VENOUS BLOOD PH 7.4 (7.30-7.42)
[2020-07-05 13:30] LABS: ALBUMIN 4.3 g/dL (3.5-5.0); ALKALINE PHOSPHATASE 163 U/L (38-126); ANION GAP 13 (5-19); ASPARTATE AMINO TRANSFERASE 83 U/L (14-36); BILIRUBIN,DIRECT 1.3 mg/dL (0.0-0.4); CALCIUM 9.8 mg/dL (8.4-10.2); CARBON DIOXIDE 33 mmol/L (22-30); CHLORIDE 89 mmol/L (98-107); GLUCOSE 147 mg/dL (75-110); POTASSIUM 3.7 mmol/L (3.6-5.0)
[2020-07-05 13:48] LABS: ALCOHOL < 10 mg/dL (NONE DETECTED); BLOOD UREA NITROGEN 124 mg/dL (7-20)
[2020-07-05] MEDS ORDERED: ONDANSETRON HCL INJ/PF 4 MG/2 ML SDV IV PRN (16:40)
--- NOTE | 2020-07-05 17:04 | PDOC H&P ---
History of Present Illness Admission Date/PCP: 07/05/20 16:20 REID MEJIA, [employer] History of Present Illness: PHILLIP DORANTES is a 49 year old female, rather unfortunate, with a history of a prior stroke with a right-sided hemiplegia, seizure disorder, bedbound, and a history of systolic CHF with an EF of 30%, grade 2 diastolic dysfunction, who presents after a seizure at home. EMS showed up and said that the house was in absolutely deplorable conditions and that the patient was covered in her own urine and dried feces. This was confirmed whenever she presented to the ER. She lives at home with her 2 able-bodied sons. I believe the names are Ten and Cyril. The ER nurses spent a lot of time cleaning her up when she first came in because she was covered in crusted feces and smelled of urine. She is not had any more seizures here, but her creatinine was little elevated above her baseline, and her BUN was profoundly elevated at 124. She is only gotten 1 L of fluid in the ER but fortunately has put out a little bit of urine since then. She says that she is very hungry and very thirsty. No one was with her when she came into the ER and no one was in the room with her whenever I came to see her. Her ER nurse got case management involved and contacted [facility]. Past Medical History Cardiac Medical History: Reports: Congestive Heart Failure, Coronary Artery Disease, Myocardial Infarction, Hyperlipidema, Hypertension, Heart Murmur Pulmonary Medical History: Denies: Asthma, Chronic Obstructive Pulmonary Disease (COPD) Neurological Medical History: Reports: Seizures Endocrine Medical History: Reports: Diabetes Mellitus Type 2 Denies: Diabetes Mellitus Type 1, Hyperthyroidism, Hypothyroidism GI Medical History: Denies: Cirrhosis, Hepatitis Musculoskeltal Medical History: Denies: Arthritis, Gout Skin Medical History: Denies: Eczema, Psoriasis Psychiatric Medical History: Denies: Depression Hematology: Denies: Anemia, Bleeding Tendencies Past Surgical History Past Surgical History: Reports: Cardiac Catheterization, Cholecystectomy, Coronary Stent Social History Lives with: Family Smoking Status: Unknown if Ever Smoked Frequency of Alcohol Use: None Hx Recreational Drug Use: No Drugs: None Hx Prescription Drug Abuse: No Family History Family History: Reviewed & Not Pertinent, DM, Other Parental Family History Reviewed: No - Unable to obtain Children Family History Reviewed: No - Unable to obtain Sibling(s) Family History Reviewed.: No - Unable to obtain Medication/Allergy Home Medications: Aspirin [Aspirin 81 mg Chewable Tablet] 81 mg PO DAILY 60 Days #60 tab.chew 05/24/20 Atorvastatin Calcium [Lipitor 40 mg Tablet] 40 mg PO QHS 60 Days #60 tablet 05/24/20 Ferrous Sulfate [Feosol 325 mg Tablet] 325 mg PO DAILY 60 Days #60 tablet 05/24/20 Lisinopril [Prinivil 5 mg Tablet] 5 mg PO DAILY 60 Days #60 tablet 05/24/20 Spironolactone [Aldactone 25 mg Tablet] 25 mg PO Q12 30 Days #60 tablet 05/24/20 Acetaminophen [Tylenol 325 mg Tablet] 650 mg PO Q4HP PRN tablet 06/08/20 Aspirin [Aspirin 81 mg Chewable Tablet] 81 mg PO DAILY tab.chew 06/08/20 Atorvastatin Calcium [Lipitor 40 mg Tablet] 40 mg PO QHS tablet 06/08/20 Cephalexin [Cephalexin 500 MG Tablet] 500 mg PO BID 7 Days #14 tablet 06/08/20 Levetiracetam [Keppra 500 mg Tablet] 1,000 mg PO Q12 14 Days #56 tablet 06/08/20 Lisinopril [Prinivil 5 mg Tablet] 5 mg PO DAILY tablet 06/08/20 Metoprolol Succinate [Toprol Xl 50 mg Tab.sr] 50 mg PO DAILY tab.sr.24h 06/08/20 Potassium Chloride [Klor-Con 10 Meq Tablet ER] 20 meq PO DAILY 10 Days #20 tablet.er 06/08/20 Allergies/Adverse Reactions: No Known Allergies Allergy (Verified 06/14/20 05:55) Review of Systems ROS unobtainable: Due to mental status Physical Exam Vital Signs: Temp Pulse Resp BP Pulse Ox 97.5 F 12 117/74 98 07/05/20 12:11 07/05/20 14:01 07/05/20 14:00 07/05/20 14:01 Intake & Output 07/04/20 07/05/20 07/06/20 06:59 06:59 06:59 Intake Total 1000 Balance 1000 General appearance: PRESENT: no acute distress, cooperative, disheveled, thin, other - She appears to have some muscle contractures on her right side and she looks very frail Head exam: PRESENT: atraumatic, normocephalic Eye exam: PRESENT: EOMI, PERRLA. ABSENT: conjunctival injection, nystagmus, scleral icterus Ear exam: PRESENT: normal external ear exam Mouth exam: PRESENT: dry mucosa, neck supple Throat exam: ABSENT: post pharyngeal erythema Neck exam: PRESENT: full ROM. ABSENT: carotid bruit, JVD, lymphadenopathy, meningismus, tenderness, thyromegaly Respiratory exam: PRESENT: clear to auscultation ac, symmetrical, unlabored. ABSENT: accessory muscle use, chest wall tenderness, crackles, prolonged expiratory phas, rhonchi, tachypnea, wheezes Cardiovascular exam: PRESENT: RRR, +S1, +S2 Pulses: PRESENT: normal carotid pulses Vascular exam: PRESENT: normal capillary refill GI/Abdominal exam: PRESENT: normal bowel sounds, soft. ABSENT: distended, guarding, rebound, tenderness Extremities exam: ABSENT: clubbing, pedal edema Musculoskeletal exam: PRESENT: other - She seems to have some muscular atrophy on the right side and her right leg seems to want to stay flexed at the hip and the knee Neurological exam: PRESENT: awake, oriented to person, oriented to place Psychiatric exam: PRESENT: flat affect Skin exam: PRESENT: dry, warm Results Laboratory Results: 07/05/20 11:32 07/05/20 11:32 07/05/20 07/05/20 07/05/20 11:32 11:32 12:13 WBC 8.0 RBC 5.05 Hgb 13.0 Hct 40.1 MCV 80 MCH 25.8 L MCHC 32.4 RDW 21.3 H Plt Count 214 Seg Neutrophils % 63.5 VBG pH VBG pCO2 VBG HCO3 VBG Base Excess Sodium 134.6 L Potassium 3.7 Chloride 89 L Carbon Dioxide 33 H Anion Gap 13 BUN 124 H Creatinine 1.57 H Est GFR ( Amer) 43 L Glucose 147 H Lactic Acid Calcium 9.8 Magnesium 1.7 Total Bilirubin 2.0 H AST 83 H Alkaline Phosphatase 163 H Ammonia Total Protein 9.0 H Albumin 4.3 Urine Color YELLOW Urine Appearance SLIGHTLY-CLOUDY Urine pH 5.0 Ur Specific [place] 1.009 Urine Protein NEGATIVE Urine Glucose (UA) NEGATIVE Urine Ketones NEGATIVE Urine Blood MODERATE H Urine RBC (Auto) 2 07/05/20 07/05/20 07/05/20 13:05 13:05 13:05 WBC RBC Hgb Hct MCV MCH MCHC RDW Plt Count Seg Neutrophils % VBG pH 7.40 VBG pCO2 52.3 VBG HCO3 31.5 VBG Base Excess 5.4 Sodium Potassium Chloride Carbon Dioxide Anion Gap BUN Creatinine Est GFR ( Amer) Glucose Lactic Acid 1.0 Calcium Magnesium Total Bilirubin AST Alkaline Phosphatase Ammonia < 8.7 L Total Protein Albumin Urine Color Urine Appearance Urine pH Ur Specific [place] Urine Protein Urine Glucose (UA) Urine Ketones Urine Blood Urine RBC (Auto) Impressions: Head CT 07/05/20 12:13 IMPRESSION: NO ACUTE INTRACRANIAL IMAGING FINDINGS. EVIDENCE OF ACUTE STROKE: NO. Chest X-Ray 07/05/20 12:15 IMPRESSION: NO SIGNIFICANT RADIOGRAPHIC FINDING IN THE CHEST. Assessment and Plan - Diagnosis (1) Ofvoc-ob-[id number] kidney injury Qualifiers: Acute renal failure type: unspecified Chronic kidney disease stage: stage 3 (moderate) Chronic kidney disease stage 3 subtype: unspecified whether 3a or 3b Qualified Code(s): N17.9 - Acute kidney failure, unspecified; N18.30 - Chronic kidney disease, stage 3 unspecified Is this a current diagnosis for this admission?: Yes (2) Dehydration Is this a current diagnosis for this admission?: Yes (3) Seizure Is this a current diagnosis for this admission?: Yes (4) Chronic combined systolic and diastolic congestive heart failure Is this a current diagnosis for this admission?: Yes (5) Coronary artery disease Qualifiers: Coronary Disease-Associated Artery/Lesion type: [place] artery [place] vs. transplanted heart: [place] heart Associated angina: without angina Qualified Code(s): I25.10 - Atherosclerotic heart disease of [place] coronary artery without angina pectoris Is this a current diagnosis for this admission?: Yes (6) History of CVA (cerebrovascular accident) Is this a current diagnosis for this admission?: Yes (7) Iron deficiency anemia Qualifiers: Iron deficiency anemia type: inadequate dietary iron intake Qualified Code(s): D50.8 - Other iron deficiency anemias Is this a current diagnosis for this admission?: Yes (8) Seizure disorder as sequela of cerebrovascular accident Is this a current diagnosis for this admission?: Yes - Plan Summary Summary: She needs a lot of IV fluids, but cautiously, because of her history of reduced EF and diastolic dysfunction. We will monitor her urine output and electrolytes closely. We will monitor for signs of impending volume overload, but if we hydrate her at a low enough rate her body should be able to soak up enough of the fluid without getting overloaded. We will continue her home seizure medica tions. We will continue her cardiovascular and blood pressure medications when appropriate. Her pressures are a little bit on the low side right now, and this should improve with hydration. As previously noted, case management has been involved. - Time Time Spent with patient: 35 or more minutes Anticipated Discharge Disposition: Unknown Anticipated Discharge Timeframe: Unknown - Inpatient Certification Based on my medical assessment, after consideration of the patient's comor bidities, presenting symptoms, or acuity I expect that the services needed warrant INPATIENT care.: Yes I certify that my determination is in accordance with my understanding of Medicare's requirements for reasonable and necessary INPATIENT services [42 CFR 412.3e].: Yes Medical Necessity: Significant Comorbidiites Make Outpatient Treatment Too Risky, Need Close Monitoring Due to Risk of Patient Decompensation, Need For IV Fluids, Need For Continuous Telemetry Monitoring, Risk of Complication if Not Cared For in Hospital
[2020-07-05] MEDS: HEPARIN SOD (PORCINE) 5,000 UNIT/ML 1 ML VIAL SUBCUT SCH (21:53)
--- NOTE | 2020-07-05 23:55 | EKG REPORT ---
SEVERITY:- ABNORMAL ECG - SINUS RHYTHM ATRIAL PREMATURE COMPLEX PROBABLE LVH WITH SECONDARY REPOL ABNRM PROBABLE INFERIOR INFARCT, AGE INDETERMINATE : Confirmed by: Virgil Webb 05-Jul-2020 23:54:46
[2020-07-06] MEDS: NORMAL SALINE 1000 ML 1,000 ML IV PRN ×2 (03:37→18:51)
[2020-07-06] MEDS: HEPARIN SOD (PORCINE) 5,000 UNIT/ML 1 ML VIAL SUBCUT SCH ×3 (05:33→22:39)
[2020-07-06 06:58] LABS: HEMATOCRIT 37.1 % (36.0-47.0); HEMOGLOBIN 12.2 g/dL (12.0-15.5); MEAN CORPUSCULAR HEMOGLOBIN 26.1 pg (27.0-33.4); MEAN CORPUSCULAR HGB CONC 32.8 g/dL (32.0-36.0); MEAN CORPUSCULAR VOLUME 80 fl (80-97); PLATELET COUNT 173 10^3/uL (150-450); RED BLOOD COUNT 4.65 10^6/uL (3.72-5.28); RED CELL DISTRIBUTION WIDTH 21.1 % (11.5-14.0); WHITE BLOOD COUNT 6.1 10^3/uL (4.0-10.5)
[2020-07-06 07:21] LABS: ALBUMIN 3.9 g/dL (3.5-5.0); ALKALINE PHOSPHATASE 136 U/L (38-126); ANION GAP 13 (5-19); ASPARTATE AMINO TRANSFERASE 70 U/L (14-36); BILIRUBIN,TOTAL 1.9 mg/dL (0.2-1.3); BLOOD UREA NITROGEN 106 mg/dL (7-20); CALCIUM 9.6 mg/dL (8.4-10.2); CARBON DIOXIDE 27 mmol/L (22-30); CHLORIDE 96 mmol/L (98-107); GLUCOSE 97 mg/dL (75-110); POTASSIUM 3.5 mmol/L (3.6-5.0); TOTAL PROTEIN 8.2 g/dL (6.3-8.2)
--- NOTE | 2020-07-06 12:22 | PDOC PROGRESS REPORT ---
Subjective Date:: 07/06/20 Subjective:: Being in bed. She has no complaints. Comfortable on room air. She does not report any pain. Her lunch tray reveals that she ate all of her lunch. Reason For Visit: SEVERE DEHYDRATION,GURWINDER Physical Exam Vital Signs: Temp Pulse Resp BP Pulse Ox 97.8 F 77 16 119/62 100 07/06/20 10:00 07/06/20 07:00 07/06/20 00:41 07/06/20 00:41 07/06/20 00:41 Intake & Output 07/05/20 07/06/20 07/07/20 06:59 06:59 06:59 Intake Total 1440 Balance 1440 Weight 56.4 kg 56.4 kg General appearance: PRESENT: no acute distress, cooperative Head exam: PRESENT: atraumatic, normocephalic Ear exam: PRESENT: normal external ear exam. ABSENT: bleeding, drainage Mouth exam: PRESENT: dry mucosa, tongue midline Neck exam: ABSENT: carotid bruit, JVD, lymphadenopathy Respiratory exam: PRESENT: rales - Very faint rales left base, symmetrical, unlabored. ABSENT: chest wall tenderness, rhonchi, tachypnea, wheezes Cardiovascular exam: PRESENT: RRR, +S1, +S2. ABSENT: bradycardia, diastolic murmur, irregular rhythm, systolic murmur, tachycardia GI/Abdominal exam: PRESENT: soft. ABSENT: distended, tenderness Rectal exam: PRESENT: deferred Gentrourinary exam: ABSENT: indwelling catheter Extremities exam: ABSENT: pedal edema Musculoskeletal exam: PRESENT: normal inspection Neurological exam: PRESENT: alert, awake, oriented to person, oriented to place, oriented to situation. ABSENT: altered Psychiatric exam: PRESENT: flat affect. ABSENT: agitated, anxious Skin exam: PRESENT: other - Very dry skin with evidence of constant scratching Results Laboratory Results: 07/06/20 05:40 07/06/20 05:40 07/05/20 07/05/20 07/05/20 11:32 11:32 12:13 WBC 8.0 RBC 5.05 Hgb 13.0 Hct 40.1 MCV 80 MCH 25.8 L MCHC 32.4 RDW 21.3 H Plt Count 214 Seg Neutrophils % 63.5 VBG pH VBG pCO2 VBG HCO3 VBG Base Excess Sodium 134.6 L Potassium 3.7 Chloride 89 L Carbon Dioxide 33 H Anion Gap 13 BUN 124 H Creatinine 1.57 H Est GFR ( Amer) 43 L Glucose 147 H Lactic Acid Calcium 9.8 Magnesium 1.7 Total Bilirubin 2.0 H AST 83 H Alkaline Phosphatase 163 H Ammonia Total Protein 9.0 H Albumin 4.3 Urine Color YELLOW Urine Appearance SLIGHTLY-CLOUDY Urine pH 5.0 Ur Specific [place] 1.009 Urine Protein NEGATIVE Urine Glucose (UA) NEGATIVE Urine Ketones NEGATIVE Urine Blood MODERATE H Urine RBC (Auto) 2 07/05/20 07/05/20 07/05/20 13:05 13:05 13:05 WBC RBC Hgb Hct MCV MCH MCHC RDW Plt Count Seg Neutrophils % VBG pH 7.40 VBG pCO2 52.3 VBG HCO3 31.5 VBG Base Excess 5.4 Sodium Potassium Chloride Carbon Dioxide Anion Gap BUN Creatinine Est GFR ( Amer) Glucose Lactic Acid 1.0 Calcium Magnesium Total Bilirubin AST Alkaline Phosphatase Ammonia < 8.7 L Total Protein Albumin Urine Color Urine Appearance Urine pH Ur Specific [place] Urine Protein Urine Glucose (UA) Urine Ketones Urine Blood Urine RBC (Auto) 07/06/20 07/06/20 05:40 05:40 WBC 6.1 RBC 4.65 Hgb 12.2 Hct 37.1 MCV 80 MCH 26.1 L MCHC 32.8 RDW 21.1 H Plt Count 173 Seg Neutrophils % VBG pH VBG pCO2 VBG HCO3 VBG Base Excess Sodium 136.1 L Potassium 3.5 L Chloride 96 L Carbon Dioxide 27 Anion Gap 13 BUN 106 H Creatinine 1.10 Est GFR ( Amer) > 60 Glucose 97 Lactic Acid Calcium 9.6 Magnesium 1.5 L Total Bilirubin 1.9 H AST 70 H Alkaline Phosphatase 136 H Ammonia Total Protein 8.2 Albumin 3.9 Urine Color Urine Appearance Urine pH Ur Specific [place] Urine Protein Urine Glucose (UA) Urine Ketones Urine Blood Urine RBC (Auto) Impressions: Head CT 07/05/20 12:13 IMPRESSION: NO ACUTE INTRACRANIAL IMAGING FINDINGS. EVIDENCE OF ACUTE STROKE: NO. Chest X-Ray 07/05/20 12:15 IMPRESSION: NO SIGNIFICANT RADIOGRAPHIC FINDING IN THE CHEST. Assessment and Plan - Diagnosis (1) [id number] kidney injury Qualifiers: Acute renal failure type: unspecified Chronic kidney disease stage: stage 3 (moderate) Chronic kidney disease stage 3 subtype: unspecified whether 3a or 3 b Qualified Code(s): N17.9 - Acute kidney failure, unspecified; N18.30 - Chronic kidney disease, stage 3 unspecified Is this a current diagnosis for this admission?: Yes (2) Dehydration Is this a current diagnosis for this admission?: Yes (3) Seizure Is this a current diagnosis for this admission?: Yes (4) Chronic combined systolic and diastolic congestive heart failure Is this a current diagnosis for this admission?: Yes (5) Coronary artery disease Qualifiers: Coronary Disease-Associated Artery/Lesion type: [place] artery [place] vs. transplanted heart: [place] heart Associated angina: without angina Qualified Code(s): I25.10 - Atherosclerotic heart disease of [place] coronary artery wi thout angina pectoris Is this a current diagnosis for this admission?: Yes (6) History of CVA (cerebrovascular accident) Is this a current diagnosis for this admission?: Yes (7) Iron deficiency anemia Qualifiers: Iron deficiency anemia type: inadequate dietary iron intake Qualified Code(s): D50.8 - Other iron deficiency anemias Is this a current diagnosis for this admission?: Yes (8) Seizure disorder as sequela of cerebrovascular accident Is this a current diagnosis for this admission?: Yes (9) Hypomagnesemia Is this a current diagnosis for this admission?: Yes (10) Hypokalemia Is this a current diagnosis for this admission?: Yes - Plan Summary Summary: (1) Gqulm-cu-dnkywvs kidney injury (2) Dehydration (3) Seizure (4) Chronic combined systolic and diastolic congestive heart failure (5) Coronary artery disease (6) History of CVA (cerebrovascular accident) (7) Iron deficiency anemia (8) Seizure disorder as sequela of cerebrovascular accident (9) Hypokalemia (10) Hypomagnesemia 07/05/2020 She needs a lot of IV fluids, but cautiously, because of her history of reduced EF and diastolic dysfunction. We will monitor her urine output and electrolytes closely. We will monitor for signs of impending volume overload, but if we hydrate her at a low enough rate her body should be able to soak up enough of the fluid without getting overloaded. We will continue her home seizure medications. We will continue her cardiovascular and blood pressure medications when appropriate. Her pressures are a little bit on the low side right now, and this should improve with hydration. As previously noted, case management has been involved. 07/06/2020 Acute on chronic kidney injury due to dehydration-the patient appears to be quite dehydrated still. Her BUN was 106. Her creatinine however is now normal. We will continue IV fluids to slowly bring down her BUN. Acute on chronic systolic and diastolic heart failure-previous echocardiogram reveals 30% ejection fraction and grade 2/4 diastolic dysfunction. No evidence of fluid overload at this point. Continue to monitor I's and O's as well as laboratory studies and the patient's clinical condition. Change of fluid orders if need be. Seizure-currently on Keppra 500 mg twice daily. Continue to monitor for any evidence of recurrent seizure Hypokalemia-replete potassium orally Hypomagnesemia-magnesium sulfate IV rider today and start oral magnesium tomorrow Coronary artery disease-no evidence of acute coronary symptoms. Monitor closely. - Time Time Spent with patient: 15-24 minutes Medications reviewed and adjusted accordingly: Yes Anticipated Discharge Disposition: Home with Home Health Anticipated Discharge Timeframe: Unknown
[2020-07-06] MEDS ORDERED: POTASSIUM CHLORIDE 10 MEQ TABLET.ER PO ONE ×2 (13:00→19:00)
[2020-07-06] MEDS ORDERED: MAGNESIUM SULFATE/D5W 1 GM/100 ML RTUPB IV ONE ×2 (13:30→19:00)
[2020-07-06] MEDS: MAGNESIUM OXIDE 400 MG TABLET PO SCH (18:46)
[2020-07-06] MEDS: LEVETIRACETAM 500 MG TABLET PO SCH (22:37)
[2020-07-07 05:09] LABS: HEMATOCRIT 35.6 % (36.0-47.0); HEMOGLOBIN 11.7 g/dL (12.0-15.5); MEAN CORPUSCULAR HEMOGLOBIN 25.8 pg (27.0-33.4); MEAN CORPUSCULAR HGB CONC 32.8 g/dL (32.0-36.0); MEAN CORPUSCULAR VOLUME 79 fl (80-97); PLATELET COUNT 143 10^3/uL (150-450); RED BLOOD COUNT 4.53 10^6/uL (3.72-5.28); RED CELL DISTRIBUTION WIDTH 21.1 % (11.5-14.0); WHITE BLOOD COUNT 4.7 10^3/uL (4.0-10.5)
[2020-07-07] MEDS: HEPARIN SOD (PORCINE) 5,000 UNIT/ML 1 ML VIAL SUBCUT SCH ×3 (05:30→21:50)
[2020-07-07 05:31] LABS: ALBUMIN 3.5 g/dL (3.5-5.0); ALKALINE PHOSPHATASE 112 U/L (38-126); ANION GAP 9 (5-19); ASPARTATE AMINO TRANSFERASE 60 U/L (14-36); BILIRUBIN,DIRECT 0.8 mg/dL (0.0-0.4); BILIRUBIN,TOTAL 1.4 mg/dL (0.2-1.3); CALCIUM 9.3 mg/dL (8.4-10.2); CARBON DIOXIDE 27 mmol/L (22-30); CHLORIDE 101 mmol/L (98-107); GLUCOSE 151 mg/dL (75-110); POTASSIUM 4.1 mmol/L (3.6-5.0); TOTAL PROTEIN 7.5 g/dL (6.3-8.2)
[2020-07-07 05:37] LABS: BLOOD UREA NITROGEN 66 mg/dL (7-20)
[2020-07-07] MEDS: NORMAL SALINE 1000 ML 1,000 ML IV PRN (06:07)
[2020-07-07] MEDS: MAGNESIUM OXIDE 400 MG TABLET PO SCH ×2 (09:57→17:06)
[2020-07-07] MEDS: POTASSIUM CHLORIDE 10 MEQ TABLET.ER PO SCH (09:57)
[2020-07-07] MEDS: ASPIRIN 81 MG TABLET, CHEWABLE PO SCH (09:57)
[2020-07-07] MEDS: LEVETIRACETAM 500 MG TABLET PO SCH ×2 (09:57→21:50)
--- NOTE | 2020-07-07 11:24 | PDOC PROGRESS REPORT ---
Subjective Date:: 07/07/20 Subjective:: Continues to feel better. No new complaints. No issues from last night. Reason For Visit: SEVERE DEHYDRATION,GURWINDER Physical Exam Vital Signs: Temp Pulse Resp BP Pulse Ox 98.5 F 80 17 163/82 H 100 07/07/20 07:40 07/07/20 07:40 07/07/20 07:40 07/07/20 07:40 07/07/20 07:40 Intake & Output 07/06/20 07/07/20 07/08/20 06:59 06:59 06:59 Intake Total 1440 3780 Balance 1440 3780 Weight 56.4 kg 54.2 kg General appearance: PRESENT: no acute distress, cooperative, well-developed Head exam: PRESENT: atraumatic, normocephalic Eye exam: PRESENT: conjunctiva pink. ABSENT: scleral icterus Ear exam: PRESENT: normal external ear exam. ABSENT: bleeding, drainage Mouth exam: PRESENT: moist, tongue midline Neck exam: ABSENT: carotid bruit, JVD, lymphadenopathy Respiratory exam: PRESENT: clear to auscultation ac, symmetrical, unlabored. ABSENT: accessory muscle use, rales, rhonchi, tachypnea, wheezes Cardiovascular exam: PRESENT: RRR, +S1, +S2. ABSENT: bradycardia, diastolic murmur, systolic murmur, tachycardia GI/Abdominal exam: PRESENT: normal bowel sounds, soft. 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 ABSENT: agitated, anxious Focused psych exam: ABSENT: delusional, paranoid, restlessness Skin exam: PRESENT: dry, normal color, warm. ABSENT: rash Results Laboratory Results: 07/07/20 04:43 07/07/20 04:43 07/07/20 07/07/20 04:43 04:43 WBC 4.7 RBC 4.53 Hgb 11.7 L Hct 35.6 L MCV 79 L MCH 25.8 L MCHC 32.8 RDW 21.1 H Plt Count 143 L Sodium 137.1 Potassium 4.1 Chloride 101 Carbon Dioxide 27 Anion Gap 9 BUN 66 H D Creatinine 0.69 Est GFR ( Amer) > 60 Glucose 151 H Calcium 9.3 Magnesium 1.7 Total Bilirubin 1.4 H AST 60 H Alkaline Phosphatase 112 Total Protein 7.5 Albumin 3.5 07/05/20 12:13 Clean Catch Midstream Urine Culture - Final Enterococcus Faecalis(Group D) Impressions: Head CT 07/05/20 12:13 IMPRESSION: NO ACUTE INTRACRANIAL IMAGING FINDINGS. EVIDENCE OF ACUTE STROKE: NO. Chest X-Ray 07/05/20 12:15 IMPRESSION: NO SIGNIFICANT RADIOGRAPHIC FINDING IN THE CHEST. Assessment and Plan - Diagnosis (1) Ngumv-zj-[id number] kidney injury Qualifiers: Acute renal failure type: unspecified Chronic kidney disease stage: stage 3 (moderate) Chronic kidney disease stage 3 subtype: unspecified whether 3a or 3b Qualified Code(s): N17.9 - Acute kidney failure, unspecified; N18.30 - Chronic kidney disease, stage 3 unspecified Is this a current diagnosis for this admission?: Yes (2) Dehydration Is this a current diagnosis for this admission?: Yes (3) Seizure Is this a current diagnosis for this admission?: Yes (4) Chronic combined systolic and diastolic congestive heart failure Is this a current diagnosis for this admission?: Yes (5) Coronary artery disease Qualifiers: Coronary Disease-Associated Artery/Lesion type: [place] artery [place] vs. transplanted heart: [place] heart Associated angina: without angina Qualified Code(s): I25.10 - Atherosclerotic heart disease of [place] coronary artery without angina pectoris Is this a current diagnosis for this admission?: Yes (6) History of CVA (cerebrovascular accident) Is this a current diagnosis for this admission?: Yes (7) Iron deficiency anemia Qualifiers: Iron deficiency anemia type: inadequate dietary iron intake Qualified Code(s): D50.8 - Other iron deficiency anemias Is this a current diagnosis for this admission?: Yes (8) Seizure disorder as sequela of cerebrovascular accident Is this a current diagnosis for this admission?: Yes (9) Hypomagnesemia Is this a current diagnosis for this admission?: Yes (10) Hypokalemia Is this a current diagnosis for this admission?: Yes (11) Enterococcus UTI Is this a current diagnosis for this admission?: Yes - Plan Summary Summary: (1) Rxhhs-zl-ipyboqb kidney injury (2) Dehydration (3) Seizure (4) Chronic combined systolic and diastolic congestive heart failure (5) Coronary artery disease (6) History of CVA (cerebrovascular accident) (7) Iron deficiency anemia (8) Seizure disorder as sequela of cerebrovascular accident (9) Hypokalemia (10) Hypomagnesemia (11) Enterococci UTI 07/05/2020 She needs a lot of IV fluids, but cautiously, because of her history of reduced EF and diastolic dysfunction. We will monitor her urine output and electrolytes closely. We will monitor for signs of impending volume overload, but if we hydrate her at a low enough rate her body should be able to soak up enough of the fluid without getting overloaded. We will continue her home seizure medications. We will continue her cardiovascular and blood pressure medications when appropriate. Her pressures are a little bit on the low side right now, and this should improve with hydration. As previously noted, case management has been involved. 07/06/2020 Acute on chronic kidney injury due to dehydration-the patient appears to be quite dehydrated still. Her BUN was 106. Her creatinine however is now normal. We will continue IV fluids to slowly bring down her BUN. Acute on chronic systolic and diastolic heart failure-previous echocardiogram reveals 30% ejection fraction and grade 2/4 diastolic dysfunction. No evidence of fluid overload at this point. Continue to monitor I's and O's as well as laboratory studies and the patient's clinical condition. Change of fluid orders if need be. Seizure-currently on Keppra 500 mg twice daily. Continue to monitor for any evidence of recurrent seizure Hypokalemia-replete potassium orally Hypomagnesemia-magnesium sulfate IV rider today and start oral magnesium tomorrow Coronary artery disease-no evidence of acute coronary symptoms. Monitor closely. 07/07/2020 Acute on chronic kidney injury-BUN and creatinine are improved. BUN is down to 66 with a creatinine of 0.69. Dehydration-continue judicious IV fluids Acute on chronic heart failure-need to be mindful of the combined systolic and diastolic heart failure. Once the patient starts to near her euvolemic baseline then discontinue IV fluids Seizure disorder-continue Keppra. Hypokalemia-potassium is normal today at 4.1. Continue oral potassium supplementation. Hypomagnesemia-magnesium is normal at 1.7. Continue oral magnesium supplementation. Enterococcus urinary tract infection-greater than 100,000 colony-forming units per milliliter identified in the patient's urine. Will initiate IV ampicillin and change to oral antibiotic at discharge. - Time Time Spent with patient: 15-24 minutes Medications reviewed and adjusted accordingly: Yes Anticipated Discharge Disposition: Home, Self Care Anticipated Discharge Timeframe: within 72 hours
[2020-07-07] MEDS ORDERED: LISINOPRIL 5 MG TABLET PO ONE (13:00)
[2020-07-07] MEDS ORDERED: METOPROLOL TARTRATE 25 MG TABLET PO ONE (13:00)
[2020-07-07] MEDS: AMPICILLIN SODIUM 500 MG in NORMAL SALINE 25 ML IV SCH ×2 (15:35→20:58)
[2020-07-07] MEDS ORDERED: ATORVASTATIN CALCIUM 40 MG TABLET PO SCH (22:00)
[2020-07-08] MEDS: AMPICILLIN SODIUM 500 MG in NORMAL SALINE 25 ML IV SCH ×3 (03:47→16:36)
[2020-07-08 05:25] LABS: HEMATOCRIT 34.2 % (36.0-47.0); HEMOGLOBIN 11.3 g/dL (12.0-15.5); MEAN CORPUSCULAR HEMOGLOBIN 26.1 pg (27.0-33.4); MEAN CORPUSCULAR HGB CONC 32.9 g/dL (32.0-36.0); MEAN CORPUSCULAR VOLUME 79 fl (80-97); PLATELET COUNT 147 10^3/uL (150-450); RED BLOOD COUNT 4.31 10^6/uL (3.72-5.28); RED CELL DISTRIBUTION WIDTH 21.5 % (11.5-14.0); WHITE BLOOD COUNT 4.7 10^3/uL (4.0-10.5)
[2020-07-08 06:00] LABS: ALBUMIN 3.5 g/dL (3.5-5.0); ALKALINE PHOSPHATASE 102 U/L (38-126); ANION GAP 7 (5-19); ASPARTATE AMINO TRANSFERASE 57 U/L (14-36); BILIRUBIN,DIRECT 0.7 mg/dL (0.0-0.4); BILIRUBIN,TOTAL 1.2 mg/dL (0.2-1.3); BLOOD UREA NITROGEN 39 mg/dL (7-20); CALCIUM 9.2 mg/dL (8.4-10.2); CARBON DIOXIDE 31 mmol/L (22-30); CHLORIDE 100 mmol/L (98-107); GLUCOSE 130 mg/dL (75-110); TOTAL PROTEIN 7.5 g/dL (6.3-8.2)
[2020-07-08] MEDS: HEPARIN SOD (PORCINE) 5,000 UNIT/ML 1 ML VIAL SUBCUT SCH ×2 (06:03→13:33)
[2020-07-08] MEDS: ASPIRIN 81 MG TABLET, CHEWABLE PO SCH (09:29)
[2020-07-08] MEDS: MAGNESIUM OXIDE 400 MG TABLET PO SCH (09:29)
[2020-07-08] MEDS: LEVETIRACETAM 500 MG TABLET PO SCH (09:29)
[2020-07-08] MEDS: POTASSIUM CHLORIDE 10 MEQ TABLET.ER PO SCH (09:29)
[2020-07-08] MEDS ORDERED: FUROSEMIDE 40 MG TABLET PO SCH (10:00)
[2020-07-08] MEDS ORDERED: METOPROLOL SUCCINATE 50 MG TAB.SR.24H PO SCH (10:00)
[2020-07-08] MEDS ORDERED: SPIRONOLACTONE 25 MG TABLET PO SCH (10:00)
[2020-07-08] MEDS ORDERED: LISINOPRIL 5 MG TABLET PO SCH (10:00)
--- NOTE | 2020-07-08 13:09 | PDOC DISCHARGE SUMMARY ---
Impression - Admit/DC Date/PCP Admission Date/Primary Care Provider: 07/05/20 16:20 REID Chaudhari ROBEROT, TRACTOR DRIVER TEAMSTER-C Discharge Date: 07/08/20 - Discharge Diagnosis (1) Djvcf-[id number]-[id number] kidney injury Is this a current diagnosis for this admission?: Yes (2) Dehydration Is this a current diagnosis for this admission?: Yes (3) Seizure Is this a current diagnosis for this admission?: Yes (4) Chronic combined systolic and diastolic congestive heart failure Is this a current diagnosis for this admission?: Yes (5) Coronary artery disease Is this a current diagnosis for this admission?: Yes (6) History of CVA (cerebrovascular accident) Is this a current diagnosis for this admission?: Yes (7) Iron deficiency anemia Is this a current diagnosis for this admission?: Yes (8) Seizure disorder as sequela of cerebrovascular accident Is this a current diagnosis for this admission?: Yes (9) Hypomagnesemia Is this a current diagnosis for this admission?: Yes (10) Hypokalemia Is this a current diagnosis for this admission?: Yes (11) Enterococcus UTI Is this a current diagnosis for this admission?: Yes - Assessment Summary: (1) [id number] kidney injury (2) Dehydration (3) Seizure (4) Chronic combined systolic and diastolic congestive heart failure (5) Coronary artery disease (6) History of CVA (cerebrovascular accident) (7) Iron deficiency anemia (8) Seizure disorder as sequela of cerebrovascular accident (9) Hypokalemia (10) Hypomagnesemia (11) Enterococci UTI 07/05/2020 She needs a lot of IV fluids, but cautiously, because of her history of reduced EF and diastolic dysfunction. We will monitor her urine output and electrolytes closely. We will monitor for signs of impending volume overload, but if we hydrate her at a low enough rate her body should be able to soak up enough of the fluid without getting overloaded. We will continue her home seizure medications. We will continue her cardiovascular and blood pressure medications when appropriate. Her pressures are a little bit on the low side right now, and this should improve with hydration. As previously noted, case management has been involved. 07/06/2020 Acute on chronic kidney injury due to dehydration-the patient appears to be quite dehydrated still. Her BUN was 106. Her creatinine however is now normal. We will continue IV fluids to slowly bring down her BUN. Acute on chronic systolic and diastolic heart failure-previous echocardiogram reveals 30% ejection fraction and grade 2/4 diastolic dysfunction. No evidence of fluid overload at this point. Continue to monitor I's and O's as well as laboratory studies and the patient's clinical condition. Change of fluid orders if need be. Seizure-currently on Keppra 500 mg twice daily. Continue to monitor for any ev idence of recurrent seizure Hypokalemia-replete potassium orally Hypomagnesemia-magnesium sulfate IV rider today and start oral magnesium tomorrow Coronary artery disease-no evidence of acute coronary symptoms. Monitor closely. 07/07/2020 Acute on chronic kidney injury-BUN and creatinine are improved. BUN is down to 66 with a creatinine of 0.69. Dehydration-continue judicious IV fluids Acute on chronic heart failure-need to be mindful of the combined systolic and diastolic heart failure. Once the patient starts to near her euvolemic baseline then discontinue IV fluids Seizure disorder-continue Keppra. Hypokalemia-potassium is normal today at 4.1. Continue oral potassium supplementation. Hypomagnesemia-magnesium is normal at 1.7. Continue oral magnesium supplementation. Enterococcus urinary tract infection-greater than 100,000 colony-forming units per milliliter identified in the patient's urine. Will initiate IV ampicillin and change to oral antibiotic at discharge. 07/08/2020 Acute on chronic kidney injury-BUN is still elevated but now in the 30s which is significantly better than admission. At discharge I am going to hold her metolazone and significantly decrease her Lasix dosing. Hypokalemia-because spironolactone was resumed therefore at discharge I will decrease her potassium supplement to 10 mEq daily. Hypomagnesemia-magnesium level was slightly below the lower limit normal. She did start oral magnesium today. I will give 2 g of IV magnesium and continue outpatient oral magnesium supplement. Acute on chronic systolic and diastolic heart failure-the patient has tolerated no diuretics for the majority of her stay. I did resume low-dose furosemide and Aldactone. There is still no evidence of failure. I told her to continue on the regimen suggested at discharge until she sees her primary care provider this week. - Additional Information Discharge Diet: Cardiac Discharge Activity: Activity As Tolerated Referrals: REID MEJIA FNP-C [Primary Care Provider] - Follow up as needed Prescriptions: Potassium Chloride [Klor-Con 10 Meq Tablet ER] 10 meq PO DAILY #14 tablet.er Furosemide [Lasix 40 mg Tablet] 40 mg PO DAILY 10 Days #10 tablet Magnesium Oxide [Mag-Ox 400 mg Tablet] 400 mg PO BID 14 Days #28 tablet Ampicillin Trihydrate [Princepen 500 mg Capsule] 1 cap PO QID #28 cap Home Medications: Aspirin [Aspirin 81 mg Chewable Tablet] 81 mg PO DAILY 60 Days #60 tab.chew 05/24/20 Ferrous Sulfate [Feosol 325 mg Tablet] 325 mg PO DAILY 60 Days #60 tablet 05/24/20 Lisinopril [Prinivil 5 mg Tablet] 5 mg PO DAILY 60 Days #60 tablet 05/24/20 Atorvastatin Calcium [Lipitor 40 mg Tablet] 40 mg PO QHS tablet 06/08/20 Levetiracetam [Keppra 500 mg Tablet] 500 mg PO Q12 07/05/20 Metoprolol Succinate [Toprol Xl 50 mg Tab.sr] 100 mg PO DAILY 07/05/20 Spironolactone [Aldactone 25 mg Tablet] 25 mg PO DAILY 07/05/20 Ampicillin Trihydrate [Princepen 500 mg Capsule] 1 cap PO QID #28 cap 07/08/20 Furosemide [Lasix 40 mg Tablet] 40 mg PO DAILY 10 Days #10 tablet 07/08/20 Magnesium Oxide [Mag-Ox 400 mg Tablet] 400 mg PO BID 14 Days #28 tablet 07/08/20 Potassium Chloride [Klor-Con 10 Meq Tablet ER] 10 meq PO DAILY #14 tablet.er 07/08/20 History of Present Illiness History of Present Illness: PHILLIP DORANTES is a 50 year old female rather unfortunate, with a history of a prior stroke with a right-sided hemiplegia, seizure disorder, bedbound, and a history of systolic CHF with an EF of 30%, grade 2 diastolic dysfunction, who presents after a seizure at home. EMS showed up and said that the house was in absolutely deplorable conditions and that the patient was covered in her own urine and dried feces. This was confirmed whenever she presented to the ER. She lives at home with her 2 able-bodied sons. I believe the names are Ten and Cyril. The ER nurses spent a lot of time cleaning her up when she first came in because she was covered in crusted feces and smelled of urine. She is not had any more seizures here, but her creatinine was little elevated above her baseline, and her BUN was profoundly elevated at 124. She is only gotten 1 L of fluid in the ER but fortunately has put out a little bit of urine since then. She says that she is very hungry and very thirsty. No one was with her when she came into the ER and no one was in the room with her whenever I came to see her. Her ER nurse got case management involved and contacted [facility]. Hospital Course Hospital Course: As above Physical Exam Vital Signs: Temp Pulse Resp BP Pulse Ox 97.7 F 78 20 115/64 100 07/08/20 11:26 07/08/20 11:26 07/08/20 11:26 07/08/20 11:26 07/08/20 11:26 Intake & Output 07/07/20 07/08/20 07/09/20 06:59 06:59 06:59 Intake Total 3780 2110 400 Balance 3780 2110 400 Weight 54.2 kg 57.7 kg General appearance: PRESENT: no acute distress, cooperative, well-developed Head exam: PRESENT: atraumatic, normocephalic Respiratory exam: PRESENT: clear to auscultation ac, symmetrical, unlabored. ABSENT: rales, rhonchi, tachypnea, wheezes Cardiovascular exam: PRESENT: RRR, +S1, +S2. ABSENT: bradycardia, diastolic murmur, irregular rhythm, systolic murmur, tachycardia GI/Abdominal exam: PRESENT: normal bowel sounds, soft Rectal exam: PRESENT: deferred Gentrourinary exam: ABSENT: indwelling catheter Extremities exam: ABSENT: pedal edema Neurological exam: PRESENT: alert, awake, oriented to person, oriented to place, oriented to situation, motor sensory deficit - Chronic right hemiparesis. ABSENT: altered Psychiatric exam: PRESENT: appropriate affect. ABSENT: agitated, anxious Results Laboratory Results: WBC 4.7 10^3/uL (4.0-10.5) 07/08/20 04:57 RBC 4.31 10^6/uL (3.72-5.28) 07/08/20 04:57 Hgb 11.3 g/dL (12.0-15.5) L 07/08/20 04:57 Hct 34.2 % (36.0-47.0) L 07/08/20 04:57 MCV 79 fl (80-97) L 07/08/20 04:57 MCH 26.1 pg (27.0-33.4) L 07/08/20 04:57 MCHC 32.9 g/dL (32.0-36.0) 07/08/20 04:57 RDW 21.5 % (11.5-14.0) H 07/08/20 04:57 Plt Count 147 10^3/uL (150-450) L 07/08/20 04:57 Lymph % (Auto) 27.2 % (13-45) 07/05/20 11:32 Cook % (Auto) 5.1 % (3-13) 07/05/20 11:32 Eos % (Auto) 3.2 % (0-6) 07/05/20 11:32 Baso % (Auto) 1.0 % (0-2) 07/05/20 11:32 Absolute Neuts (auto) 5.1 10^3/uL (1.7-8.2) 07/05/20 11:32 Absolute Lymphs (auto) 2.2 10^3/uL (0.5-4.7) 07/05/20 11:32 Absolute Monos (auto) 0.4 10^3/uL (0.1-1.4) 07/05/20 11:32 Absolute Eos (auto) 0.3 10^3/uL (0.0-0.6) 07/05/20 11:32 Absolute Basos (auto) 0.1 10^3/uL (0.0-0.2) 07/05/20 11:32 Seg Neutrophils % 63.5 % (42-78) 07/05/20 11:32 VBG pH 7.40 (7.30-7.42) 07/05/20 13:05 VBG pCO2 52.3 mmHg (35-63) 07/05/20 13:05 VBG HCO3 31.5 mmol/L (20-32) 07/05/20 13:05 VBG Base Excess 5.4 mmol/L 07/05/20 13:05 Sodium 138.1 mmol/L (137-145) 07/08/20 04:57 Potassium 4.0 mmol/L (3.6-5.0) 07/08/20 04:57 Chloride 100 mmol/L (98-107) 07/08/20 04:57 Carbon Dioxide 31 mmol/L (22-30) H 07/08/20 04:57 Anion Gap 7 (5-19) 07/08/20 04:57 BUN 39 mg/dL (7-20) H 07/08/20 04:57 Creatinine 0.68 mg/dL (0.52-1.25) 07/08/20 04:57 Est GFR ( Amer) > 60 (>60) 07/08/20 04:57 Est GFR (MDRD) Non-Af > 60 (>60) 07/08/20 04:57 Glucose 130 mg/dL (75-110) H 07/08/20 04:57 POC Glucose 133 mg/dL (70-110) H 07/05/20 12:26 Lactic Acid 1.0 mmol/L (0.7-2.1) 07/05/20 13:05 Calcium 9.2 mg/dL (8.4-10.2) 07/08/20 04:57 Magnesium 1.4 mg/dL (1.6-2.3) L 07/08/20 04:57 Total Bilirubin 1.2 mg/dL (0.2-1.3) 07/08/20 04:57 Direct Bilirubin 0.7 mg/dL (0.0-0.4) H 07/08/20 04:57 Neonat Total Bilirubin Not Reportable 07/08/20 04:57 Neonat Direct Bilirubin Not Reportable 07/08/20 04:57 Neonat Indirect Bili Not Reportable 07/08/20 04:57 AST 57 U/L (14-36) H 07/08/20 04:57 ALT 47 U/L (<35) H 07/08/20 04:57 Alkaline Phosphatase 102 U/L (38-126) 07/08/20 04:57 Ammonia < 8.7 umol/L (9-33) L 07/05/20 13:05 Total Protein 7.5 g/dL (6.3-8.2) 07/08/20 04:57 Albumin 3.5 g/dL (3.5-5.0) 07/08/20 04:57 Urine Color YELLOW 07/05/20 12:13 Urine Appearance SLIGHTLY-CLOUDY 07/05/20 12:13 Urine pH 5.0 (5.0-9.0) 07/05/20 12:13 Ur Specific [place] 1.009 07/05/20 12:13 Urine Protein NEGATIVE mg/dL (NEGATIVE) 07/05/20 12:13 Urine Glucose (UA) NEGATIVE mg/dL (NEGATIVE) 07/05/20 12:13 Urine Ketones NEGATIVE mg/dL (NEGATIVE) 07/05/20 12:13 Urine Blood MODERATE (NEGATIVE) H 07/05/20 12:13 Urine Nitrite (Reflex) NEGATIVE (NEGATIVE) 07/05/20 12:13 Urine Bilirubin NEGATIVE (NEGATIVE) 07/05/20 12:13 Urine Urobilinogen 2.0 mg/dL (<2.0) H 07/05/20 12:13 Leukocyte Esterase Rfl MODERATE (NEGATIVE) H 07/05/20 12:13 Urine RBC (Auto) 2 /HPF 07/05/20 12:13 U Hyaline Cast (Auto) 2 /LPF 07/05/20 12:13 Urine Bacteria (Auto) 1+ /HPF 07/05/20 12:13 Urine WBC (Reflex) 9 /HPF 07/05/20 12:13 Squamous Epi Cells Auto 1 /HPF 07/05/20 12:13 Urine Mucus (Auto) RARE /LPF 07/05/20 12:13 Urine Ascorbic Acid NEGATIVE (NEGATIVE) 07/05/20 12:13 Urine Opiates Screen NEGATIVE 07/05/20 12:13 Urine Methadone Screen NEGATIVE 07/05/20 12:13 Ur Barbiturates Screen NEGATIVE 07/05/20 12:13 Ur Phencyclidine Scrn NEGATIVE 07/05/20 12:13 Ur Amphetamines Screen NEGATIVE 07/05/20 12:13 U Benzodiazepines Scrn NEGATIVE 07/05/20 12:13 Urine Cocaine Screen NEGATIVE 07/05/20 12:13 U Marijuana (THC) Screen NEGATIVE 07/05/20 12:13 Serum Alcohol < 10 mg/dL (NONE DETECTED) 07/05/20 11:32 Impressions: Head CT 07/05/20 12:13 IMPRESSION: NO ACUTE INTRACRANIAL IMAGING FINDINGS. EVIDENCE OF ACUTE STROKE: NO. Chest X-Ray 07/05/20 12:15 IMPRESSION: NO SIGNIFICANT RADIOGRAPHIC FINDING IN THE CHEST. Plan Health Concerns: Seizure in a patient with history of stroke. Volume depleted as well. Plan of Treatment: Medication changes as above. Goals: Resumption of stable medication regimen to avoid large fluctuations in volume status and avoid further seizure activity Time Spent: Greater than 30 Minutes Stroke Is this a Stroke Patient?: No Acute Heart Failure Is this a Heart Failure Patient?: No
[2020-07-08] MEDS: MAGNESIUM SULFATE/D5W 1 GM/100 ML RTUPB IV SCH ×2 (13:36→14:41)
[2020-07-08 16:38] VITALS: BP 106/55
== END 2020-07-08 16:37 | disposition home health service (06) | DRG 683 ==
LOC: ER 10:57 → EH 16:20 → 4W 17:58
PROVIDERS: ADMIT Family Medicine; ATTEND Hospitalist
DX: N17.9 Acute kidney failure, unspecified (principal); I50.42 Chronic combined systolic (congestive) and diastolic (congestive) heart failure; G40.802 Other epilepsy, not intractable, without status epilepticus; N39.0 Urinary tract infection, site not specified; I69.351 Hemiplegia and hemiparesis following cerebral infarction affecting right dominant side; I13.0 Hypertensive heart and chronic kidney disease with heart failure and stage 1 through stage 4 chronic kidney disease, or unspecified chronic kidney disease; E86.0 Dehydration; I25.10 Atherosclerotic heart disease of native coronary artery without angina pectoris; D50.9 Iron deficiency anemia, unspecified; E83.42 Hypomagnesemia; R46.0 Very low level of personal hygiene; E78.5 Hyperlipidemia, unspecified; N18.30 Chronic kidney disease, stage 3 unspecified; E11.22 Type 2 diabetes mellitus with diabetic chronic kidney disease; I69.398 Other sequelae of cerebral infarction; E87.6 Hypokalemia; B95.2 Enterococcus as the cause of diseases classified elsewhere; Z79.899 Other long term (current) drug therapy; Z74.01 Bed confinement status; I25.2 Old myocardial infarction; Z95.5 Presence of coronary angioplasty implant and graft; Z79.82 Long term (current) use of aspirin
CPT/HCPCS: 36415; 70450; 71045; 80053; 80307; 81001; 82140; 82803; 82962; 83605; 83735; 85025; 85027; 87086; 87088; 87186; 93005; 93010; 96360; 96361; 99285; J0290; J1644; J3475; J7030; J7050

== ENCOUNTER 2020-07-11 15:41 | Emergency (ER) | payer MEDICARE, MEDICAID ==
--- NOTE | 2020-07-11 19:46 | ER Document Report ---
ED General - General Chief Complaint: Probable Seizure Stated Complaint: SYNCOPE Time Seen by Provider: 07/11/20 19:45 Primary Care Provider: REID MEJIA FNP-C [Primary Care Provider] - Follow up as needed TRAVEL OUTSIDE OF THE [place] IN LAST 30 DAYS: No - HPI Notes: 50-year-old female presents after she had a seizure at home. Patient is known to have a seizure disorder. Per EMS/nursing report, patient son is the primary mounter and he called EMS after she had a seizure at home. Patient currently denies complaints, she says "I'm okay now". She answers "I don't know" or "it's a yes and a no" to most questions. She states that her son provides her her medications, she cannot recall the names of her medications or her past medical history. Patient is a very limited historian. - Related Data Allergies/Adverse Reactions: No Known Allergies Allergy (Verified 06/14/20 05:55) Past Medical History - General Information source: Patient, Emergency Med Personnel - Social History Smoking Status: Unknown if Ever Smoked Frequency of alcohol use: None Drug Abuse: None Family History: DM, Other Patient has homicidal ideation: No - Past Medical History Cardiac Medical History: Reports: Hx Congestive Heart Failure, Hx Coronary Artery Disease, Hx Heart Attack, Hx Hypercholesterolemia, Hx Hypertension, Hx Heart Murmur Pulmonary Medical History: Denies: Hx Asthma, Hx COPD Neurological Medical History: Reports: Hx Cerebrovascular Accident, Hx Seizures Endocrine Medical History: Reports: Hx Diabetes Mellitus Type 2. Denies: Hx Diabetes Mellitus Type 1, Hx Hyperthyroidism, Hx Hypothyroidism Renal/ Medical History: Denies: Hx Peritoneal Dialysis GI Medical History: Denies: Hx Cirrhosis, Hx Hepatitis Musculoskeletal Medical History: Denies Hx Arthritis, Denies Hx Gout Skin Medical History: Denies Hx Eczema, Denies Hx Psoriasis Psychiatric Medical History: Denies: Hx Depression Infectious Medical History: Denies: Hx Hepatitis Past Surgical History: Reports: Hx Cardiac Catheterization, Hx Cholecystectomy, Hx Coronary Stent - Immunizations Hx Diphtheria, Pertussis, Tetanus Vaccination: Yes Review of Systems - Review of Systems Notes: Review of systems was discussed with patient, she answers no to all questions asked, though noted she is a limited historian Constitutional: No symptoms reported EENT: No symptoms reported Cardiovascular: No symptoms reported Respiratory: No symptoms reported Gastrointestinal: No symptoms reported Genitourinary: No symptoms reported Female Genitourinary: No symptoms reported Musculoskeletal: No symptoms reported Skin: No symptoms reported Hematologic/Lymphatic: No symptoms reported Neurological/Psychological: Seizure. denies: Headaches Physical Exam - Vital signs Vitals: Resp Pulse Ox 30 H 96 07/11/20 15:51 07/11/20 15:51 - General General appearance: Alert, Other - Chronically ill-appearing In distress: None - HEENT Head: Normocephalic, Atraumatic Extraocular movements intact: Yes Pupils: PERRL Mucous membranes: Moist Neck: Supple - Respiratory Chest status: Nontender Breath sounds: Normal. No: Rales - Cardiovascular Rhythm: Regular Heart sounds: Normal auscultation Murmur: Yes Normal capillary refill: Yes - Abdominal Tenderness: Nontender - Extremities General lower extremity: No: Edema - Neurological Notes: Face is symmetric, speech is clear. She moves both upper extremities. She has both legs bent in bed and is able to lower them, there is notes mentioning right-sided leg paralysis from previous stroke - Psychological Associated symptoms: Flat affect - Skin Skin Temperature: Warm Course - Re-evaluation Re-evalutation: 50-year-old female with history of seizure secondary to CVA, CHF, hypertension, cirrhosis and multiple other comorbidities here after she had a seizure at home. Her home meds include Keppra 500 twice daily, there also notes indicating medical noncompliance. Patient is very limited historian. She currently is denying complaints. She is afebrile and hemodynamically stable. I appreciate any gross acute focal neuro deficits. No peripheral edema and no rales, she is not fluid overloaded based on exam. Plan to check basic labs and urinalysis, will load with Keppra IV. 07/11/20 22:20 No leukocytosis or left shift. Stable chronic anemia. Slight hyponatremia 133 and creatinine elevated from baseline, she received IV fluids. Urine not suggestive of UTI. 07/11/20 22:21 Mentation has seemed to improve, patient is more communicative now. She is able to state that she typically does require transport home from the emergency department. I updated her on work-up today. There have been no seizure events while in the emergency department. 07/11/20 22:23 Called the 2 numbers listed under patient contact information, no answer, message left 01/13/21 22:23 Patient stable at time of discharge. - Vital Signs Vital signs: Temp Pulse Resp BP Pulse Ox 18 106/60 99 07/11/20 20:38 07/11/20 20:38 07/11/20 20:38 - Laboratory Results Result Diagrams: 07/11/20 15:55 07/11/20 15:55 Laboratory Results Interpreted: 07/11/20 07/11/20 07/11/20 15:55 15:55 21:51 Hgb 11.8 L Hct 35.3 L MCH 26.7 L RDW 21.5 H Sodium 133.1 L Chloride 90 L Carbon Dioxide 34 H BUN 71 H Creatinine 1.27 H Est GFR ( Amer) 54 L Est GFR (MDRD) Non-Af 45 L Glucose 259 H Urine Urobilinogen 2.0 H Critical Laboratory Results Reviewed: No Critical Results - Radiology Results Critical Radiology Results Reviewed: No Critical Results Discharge - Discharge Clinical Impression: Seizure disorder, GURWINDER (acute kidney injury) Disposition: HOME, SELF-CARE Additional Instructions: Please be sure that you take all of your medications as prescribed. You received an extra dose of Keppra in the emergency department today. Please also be sure to drink plenty of fluids as there is some signs of dehydration on your lab results. Please have your primary care doctor recheck your labs tomorrow or early next week. Return to the emergency department for any concerning worsening symptoms. Referrals: REID MEJIA, NICKC [Primary Care Provider] - Follow up as needed
[2020-07-11] MEDS ORDERED: LEVETIRACETAM 1000 MG/NACL-ISO 1,000 MG/100 ML RTUPB IV ONE (20:04)
[2020-07-11 20:31] LABS: ABSOLUTE BASOPHILS # (AUTO) 0.1 10^3/uL (0.0-0.2); ABSOLUTE EOSINOPHILS # (AUTO) 0.2 10^3/uL (0.0-0.6); ABSOLUTE MONOCYTES (AUTO) 0.5 10^3/uL (0.1-1.4); ABSOLUTE NEUT (AUTO) 4.4 10^3/uL (1.7-8.2); BASOPHILS % (AUTO) 1.1 % (0-2); EOSINOPHILS % (AUTO) 3.3 % (0-6); HEMATOCRIT 35.3 % (36.0-47.0); HEMOGLOBIN 11.8 g/dL (12.0-15.5); MEAN CORPUSCULAR HEMOGLOBIN 26.7 pg (27.0-33.4); MEAN CORPUSCULAR HGB CONC 33.3 g/dL (32.0-36.0); MEAN CORPUSCULAR VOLUME 80 fl (80-97); PLATELET COUNT 222 10^3/uL (150-450); RED BLOOD COUNT 4.42 10^6/uL (3.72-5.28); RED CELL DISTRIBUTION WIDTH 21.5 % (11.5-14.0); SEGMENTED NEUTROPHILS % (AUTO) 60.6 % (42-78); TOTAL CELLS COUNTED % (AUTO) 100 %; WHITE BLOOD COUNT 7.3 10^3/uL (4.0-10.5)
[2020-07-11 20:43] LABS: ANION GAP 9 (5-19); BLOOD UREA NITROGEN 71 mg/dL (7-20); CALCIUM 9.4 mg/dL (8.4-10.2); CARBON DIOXIDE 34 mmol/L (22-30); CHLORIDE 90 mmol/L (98-107); GLUCOSE 259 mg/dL (75-110); POTASSIUM 4.4 mmol/L (3.6-5.0)
[2020-07-11] MEDS ORDERED: NORMAL SALINE 500 ML IV ONE (21:18)
[2020-07-11 22:09] LABS: APPEARANCE,URINE CLEAR; BILIRUBIN,URINE NEGATIVE (NEGATIVE); COLOR,URINE YELLOW; GLUCOSE, URINE NEGATIVE (NEGATIVE); KETONES,URINE NEGATIVE (NEGATIVE); LEUKOCYTE ESTERASE,URINE NEGATIVE (NEGATIVE); NITRITE,URINE NEGATIVE (NEGATIVE); PROTEIN,URINE NEGATIVE (NEGATIVE); URINE SPECIFIC GRAVITY 1.014
[2020-07-12 01:22] VITALS: BP 122/76
== END 2020-07-12 01:48 | disposition home or self-care (01) ==
LOC: ER 15:41
DX: G40.909 Epilepsy, unspecified, not intractable, without status epilepticus (principal); N17.9 Acute kidney failure, unspecified; R55 Syncope and collapse; Z79.899 Other long term (current) drug therapy; I50.9 Heart failure, unspecified; I25.10 Atherosclerotic heart disease of native coronary artery without angina pectoris; I25.2 Old myocardial infarction; I11.0 Hypertensive heart disease with heart failure; E11.9 Type 2 diabetes mellitus without complications
CPT/HCPCS: 99284; 96361; 96365; 36415; 85025; 80048; 81001; J7040; J1953